=== PATIENT | female | born 1935 | race Caucasian/White ===

== ENCOUNTER 2019-07-20 15:59 | Emergency (ER) | payer MEDICARE ==
[2019-07-20 16:19] VITALS: BP 137/71; PULSE 78; RESP 18; TEMP 97.6
--- NOTE | 2019-07-20 18:06 | XR ---
EXAMINATION TYPE: XR Hip RT and AP Pelvis DATE OF EXAM: 07/20/2019 COMPARISON: Today HISTORY: Hip pain TECHNIQUE: A single AP view of the pelvis is obtained. Two views of the right hip are obtained. FINDINGS: The pelvic ring is intact. There is right hip prosthesis. Components are in reasonable pos ition. There is a mild protrusio the prosthetic acetabulum. There is a nondisplaced chip fracture of the greater trochanter unchanged compared to exam this morning. IMPRESSION: Greater trochanter chip fracture unchanged. Osteopenia. Mild protrusio of the acetabulum.
--- NOTE | 2019-07-20 19:12 | ED ---
Lower Extremity Injury HPI - General Chief Complaint: Extremity Injury, Lower Stated Complaint: Hip fracture Time Seen by Provider: 07/20/19 16:38 Source: patient Mode of arrival: wheelchair Limitations: no limitations - History of Present Illness Initial Comments: The patient is an 83-year-old female who presents emergency department with complaint of right knee pain. She originally had a right hip replacement by Dr. Wright at [facility] on May 07. She did go to rehab after that. States that she's been ambulating without difficulty with a walker. She did return home 3 weeks ago. States that over the past 3 weeks that she has had progressive pain in her right knee. She is still able to ambulate. Denies any trauma. She did follow up with the [facility] urgent care today and an x-ray of the patient's right hip and right knee were performed. UC was concerned for an acute right hip fracture and therefore she was transferred to our facility for further evaluation. She denies any worsening pain in her right hip. Denies any trauma. She continues to ambulate without difficulty. Denies any calf pain or swelling. No chest pain or shortness of breath. She denies any fevers or chills. No redness or swelling to the skin. She denies any alleviating, precipitating or modifying factors - Related Data Home Medications Medication Instructions Recorded Confirmed Pantoprazole Sodium [Protonix] 40 mg PO DAILY 07/20/19 07/20/19 Rosuvastatin Calcium [Crestor] 5 mg PO HS 07/20/19 07/20/19 amLODIPine [Norvasc] 5 mg PO DAILY 07/20/19 07/20/19 Allergies Allergy/AdvReac Type Severity Reaction Status Date / Time aspirin AdvReac Abdominal Verified 07/20/19 17:16 Pain Review of Systems ROS Statement: Those systems with pertinent positive or pertinent negative responses have been documented in the HPI. ROS Other: All systems not noted in ROS Statement are negative. 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 Absent: distended, tenderness Extremities exam: Present: normal inspection, tenderness, pedal edema, joint swelling, other (the patient has tenderness to palpation of the joint line of the right knee. No joint effusion. No warmth, redness, swelling. The patient has a well healed linear scar over the right hip. It is clean, dry, intact. No warmth or redness. No instability palpated. no tenderness. Patient has 5/5 muscle strength of the bilateral lower extremities to include hip flexors, knee extensors, ankle and great toe dorisflexors and foot plantar flexors. 2+ DP and PT pulses. Intact 2 point discrimination and soft touch ). Absent: calf tenderness Back exam: Present: normal inspection, full ROM. Absent: tenderness, vertebral tenderness Course Vital Signs 07/20/19 16:16 Temperature 97.6 F Pulse Rate 78 Respiratory 18 Rate Blood Pressure 137/71 O2 Sat by Pulse 98 Oximetry Medical Decision Making - Medical Decision Making Upon arrival the patient is placed in room 18. I did perform a thorough physical exam. I did review the patient's x-rays from the outside facility. I did recommend repeat x-rays the patient's right hip at our facility. They are performed and does demonstrate a greater trochanter chip fracture. Because of this I did call discuss case with Dr. Cardozo and he does review the films. As the patient is not reporting any difficulties with ambulation or pain she may be discharged home. He does recommend that she follow up with Dr. Terrell for reevaluation. The patient does not wish to pursue follow-up with Dr. wright. I did discuss this with the patient. She does agree to the treatment plan. She was then discharged home ambulatory in stable condition - Differential Diagnosis acute right knee pain, s/p right hip replacement Disposition Clinical Impression: Fracture of hip, S/P hip replacement, Right knee pain Disposition: HOME SELF-CARE Condition: Stable Instructions (If sedation given, give patient instructions): Precautions after Total Joint Replacement Surgery (ED), Knee Pain (ED) Additional Instructions: Please follow-up with Dr. Terrell within one week. Return to the emergency room for new or worsening symptoms Is patient prescribed a controlled substance at d/c from ED?: No Referrals: Antonio Liu DO [Primary Care Provider] - 1-2 days Pal Terrell DO [Doctor of Osteopathic Medicine] - 1-2 days Time of Disposition: 19:12
== END 2019-07-20 19:17 | disposition home or self-care (01) ==
LOC: EC 15:59
DX: S72.091A Other fracture of head and neck of right femur, initial encounter for closed fracture (principal); M25.561 Pain in right knee; K21.9 Gastro-esophageal reflux disease without esophagitis; E78.5 Hyperlipidemia, unspecified; I10 Essential (primary) hypertension; Z85.118 Personal history of other malignant neoplasm of bronchus and lung; Z96.641 Presence of right artificial hip joint; Z79.899 Other long term (current) drug therapy; Z88.6 Allergy status to analgesic agent
CPT/HCPCS: 73502; 99284

== ENCOUNTER 2020-01-05 11:20 | Emergency (ER) | payer MEDICARE, BC ==
[2020-01-05 11:24] VITALS: TEMP 97.6
[2020-01-05] MEDS ORDERED: SODIUM CHLORIDE 0.9% 500 ML 500 ML IV STA (11:41)
[2020-01-05] MEDS ORDERED: ONDANSETRON 4 MG/2 ML VIAL IVP STA (11:41)
--- NOTE | 2020-01-05 11:41 | ED ---
Nausea/Vomiting/Diarrhea HPI - General Chief complaint: Nausea/Vomiting/Diarrhea Stated complaint: vomiting Source: patient Mode of arrival: ambulatory Limitations: no limitations - History of Present Illness Initial comments: The patient is an 84-year-old female with past history of hypertension, hyperlipidemia 1 cancer presents to emergency room with reported nausea and vomiting. She states that her symptoms and presents for the past 6 months. She sees a GI doctor out of [facility]. States that she had surgery in August or September to correct a "pocket" in her stomach. They did think that this was the etiology of her intractable nausea and vomiting. She states that since surgery she has not had any improvement. She will have 2 days where she is able to hold down food and on the third day she begins vomiting. She reports that her symptoms are worse at night. Admits to significant weight loss. She saw her primary care doctor last month. She did have a CT of her chest performed to evaluate for recurrence of lung cancer. At that time he also p erformed with the patient describes to me as a possible CT with oral contrast. She states that she was told there is no issues with the study. She is unsure when her next follow up appointment is with her GI doctor. She denies hematemesis. Denies any abdominal or epigastric pain. No chest pain or shortness of breath. Denies diarrhea, constipation, melanotic stools or hematochezia. No recent medication changes. She does take the PPI daily which does not help her symptoms. Has no antiemetics. Denies fevers or chills. Was able to hold down food yesterday and currently denies nausea. There are no alleviating, precipitating or modifying nurse - Related Data Home Medications Medication Instructions Recorded Confirmed Pantoprazole Sodium [Protonix] 40 mg PO DAILY 07/20/19 07/20/19 Rosuvastatin Calcium [Crestor] 5 mg PO HS 07/20/19 07/20/19 amLODIPine [Norvasc] 5 mg PO DAILY 07/20/19 07/20/19 Previous Rx's Medication Instructions Recorded Ondansetron Odt [Zofran Odt] 4 mg PO Q8HR PRN #25 tab 01/05/20 Allergies Allergy/AdvReac Type Severity Reaction Status Date / Time aspirin AdvReac Abdominal Verified 01/05/20 11:24 Pain Review of Systems ROS Statement: Those systems with pertinent positive or pertinent negative responses have been documented in the HPI. ROS Other: All systems not noted in ROS Statement are negative. 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 A thorough history and physical exam was performed. We did obtain IV access. I provided the patient with 4 mg of Zofran and a 500 mL bolus of normal saline even though the patient states that she feels quite well at this time. I did recommend completing laboratory studies. CBC and CMP are unremarkable. Lipase is 44. I did request a urine sample however the patient refuses to give me 1. The patient recently had a computed tomography scan of her belly therefore I do hold off on any imaging. She is not having any abdominal pain. I discussed diagnosis, differential and treatment options. As the this is a chronic issue for the patient I do believe that she needs to follow up with GI in the outpatient setting for further workup. She is requesting a physician important that is closer to her house. I did provide her with information for Dr. Harkins. She is to call and make an appointment. I will give her a small prescription for Zofran to take at home for her nausea. If the patient has any new or worsening symptoms are absolutely cannot tolerate any by mouth intake she should return to the emergency department. At this time the patient states that she did eat a muffin and had coffee for breakfast. The patient understood this. She was then discharged home in stable condition - Lab Data Result diagrams: 01/05/20 12:00 01/05/20 12:00 Lab Results 01/05/20 01/05/2001/05/20 Range/Units 12:00 12:00 12:00 WBC 7.4 (3.8-10.6) k/uL RBC 4.57 (3.80-5.40) m/uL Hgb 12.7 (11.4-16.0) gm/dL Hct 39.6 (34.0-46.0) % MCV 86.6 (80.0-100.0) fL MCH 27.7 (25.0-35.0) pg MCHC 32.0 (31.0-37.0) g/dL RDW 15.0 (11.5-15.5) % Plt Count 287 (150-450) k/uL Neutrophils % 56 % Lymphocytes % 33 % Monocytes % 5 % Eosinophils % 3 % Basophils % 1 % Neutrophils # 4.1 (1.3-7.7) k/uL Lymphocytes # 2.5 (1.0-4.8) k/uL Monocytes # 0.4 (0-1.0) k/uL Eosinophils # 0.2 (0-0.7) k/uL Basophils # 0.1 (0-0.2) k/uL Sodium 136 L (137-145) mmol/L Potassium 4.0 (3.5-5.1) mmol/L Chloride 102 (98-107) mmol/L Carbon Dioxide 25 (22-30) mmol/L Anion Gap 9 mmol/L BUN 22 H (7-17) mg/dL Creatinine 0.88 (0.52-1.04) mg/dL Est GFR (CKD-EPI)AfAm 71 (>60 ml/min/1.73 sqM) Est GFR (CKD-EPI)NonAf 62 (>60 ml/min/1.73 sqM) Glucose 86 (74-99) mg/dL Plasma Lactic Acid Sajan 1.5 (0.7-2.0) mmol/L Calcium 9.7 (8.4-10.2) mg/dL Total Bilirubin 0.5 (0.2-1.3) mg/dL AST 21 (14-36) U/L ALT 11 (4-34) U/L Alkaline Phosphatase 92 (38-126) U/L Total Protein 7.3 (6.3-8.2) g/dL Albumin 4.1 (3.5-5.0) g/dL Lipase 44 (23-300) U/L - EKG Data EKG Comments: Demonstrates normal sinus rhythm with a ventricular rate of 60. WA interval 198. QRS 112. QTC of 459. There is an incomplete right bundle branch block present. No acute ST segment patients or depressions concerning for ischemic changes. No EKG to compare to Disposition Clinical Impression: Nausea and vomiting Disposition: HOME SELF-CARE Condition: Stable Instructions (If sedation given, give patient instructions): Acute Nausea and Vomiting (ED) Additional Instructions: Please follow-up with the GI doctor in regards to your chronic nausea and vomiting. Return to the emergency department for any new or worsening symptoms Prescriptions: Ondansetron Odt [Zofran Odt] 4 mg PO Q8HR PRN #25 tab PRN Reason: Nausea Is patient prescribed a controlled substance at d/c from ED?: No Referrals: Rober Brown DO [Primary Care Provider] - 1-2 days Wendy Concepcion MD [STAFF PHYSICIAN] - 1-2 days Time of Disposition: 14:14
[2020-01-05 12:13] LABS: Basophils # (A) 0.1 k/uL (0-0.2); Basophils % (A) 1 %; Eosinophils # (A) 0.2 k/uL (0-0.7); Eosinophils % (A) 3 %; HCT 39.6 % (34.0-46.0); HGB 12.7 gm/dL (11.4-16.0); Lymphocytes # (A) 2.5 k/uL (1.0-4.8); Lymphocytes % (A) 33 %; MCH 27.7 pg (25.0-35.0); MCV 86.6 fL (80.0-100.0); Mean Platelet Volume 7.8; Monocytes # (A) 0.4 k/uL (0-1.0); Monocytes % (A) 5 %; Neutrophils # (A) 4.1 k/uL (1.3-7.7); Neutrophils % (A) 56 %; Platelet Count 287 k/uL (150-450); RBC 4.57 m/uL (3.80-5.40); WBC 7.4 k/uL (3.8-10.6)
[2020-01-05 12:27] LABS: Albumin 4.1 g/dL (3.5-5.0); Calcium 9.7 mg/dL (8.4-10.2); Total Bilirubin 0.5 mg/dL (0.2-1.3); Total Protein 7.3 g/dL (6.3-8.2)
[2020-01-05 12:54] VITALS: RESP 18
[2020-01-05 14:48] VITALS: BP 145/70; PULSE 90
== END 2020-01-05 14:48 | disposition home or self-care (01) ==
LOC: EC 11:20
DX: R11.2 Nausea with vomiting, unspecified (principal); K21.9 Gastro-esophageal reflux disease without esophagitis; I10 Essential (primary) hypertension; E78.5 Hyperlipidemia, unspecified; Z79.899 Other long term (current) drug therapy; Z88.6 Allergy status to analgesic agent; Z90.49 Acquired absence of other specified parts of digestive tract; Z85.118 Personal history of other malignant neoplasm of bronchus and lung
CPT/HCPCS: 36415; 80053; 83605; 83690; 85025; 93005; 99284

== ENCOUNTER 2020-11-03 14:38 | Emergency (ER) | payer MEDICARE, BC ==
[2020-11-03 14:46] VITALS: PULSE 100
[2020-11-03] MEDS ORDERED: SODIUM CHLORIDE 0.9% 500 ML 500 ML IV ONE (15:17)
[2020-11-03 15:46] LABS: Appearance,Urine Clear (Clear); Bacteria,Urine Many /hpf; Bilirubin,Urine Negative (Negative); Blood,Urine Trace (Negative); Color,Urine Yellow; Glucose,Urine (UA) Negative (Negative); Hyaline Casts,Urine 14 /lpf (0-2); Ketones,Urine 2+ (Negative); Leukocyte Esterase,Urine Negative (Negative); Nitrite,Urine Positive (Negative); PH, Urine 5.5 (5.0-8.0); Protein,Urine 1+ (Negative); RBC,Urine 1 /hpf (0-5); Specific Gravity,Urine 1.029 (1.001-1.035); Squamous Epithelial Cell,Urine 3 /hpf (0-4); Urobilinogen,Urine <2.0 mg/dL (<2.0); WBC,Urine 9 /hpf (0-5)
[2020-11-03 15:59] LABS: Basophils # (A) 0.1 k/uL (0-0.2); Basophils % (A) 3 %; Eosinophils % (A) 1 %; HCT 42.3 % (34.0-46.0); HGB 13.9 gm/dL (11.4-16.0); Lymphocytes # (A) 0.9 k/uL (1.0-4.8); Lymphocytes % (A) 21 %; MCH 28.6 pg (25.0-35.0); MCHC 32.8 g/dL (31.0-37.0); MCV 87.1 fL (80.0-100.0); Monocytes # (A) 0.2 k/uL (0-1.0); Monocytes % (A) 5 %; Neutrophils # (A) 3.2 k/uL (1.3-7.7); Neutrophils % (A) 70 %; Platelet Count 131 k/uL (150-450); RBC 4.86 m/uL (3.80-5.40); RDW 13.8 % (11.5-15.5); WBC 4.5 k/uL (3.8-10.6)
[2020-11-03 16:15] LABS: Albumin 3.6 g/dL (3.5-5.0); Calcium 8.8 mg/dL (8.4-10.2); Potassium 4.7 mmol/L (3.5-5.1); Total Bilirubin 0.4 mg/dL (0.2-1.3); Total Protein 6.8 g/dL (6.3-8.2)
[2020-11-03] MEDS ORDERED: cefTRIAXone IN SWFI 1,000 MG/10 ML SYRINGE IVP STA (16:19)
--- NOTE | 2020-11-03 17:28 | CT ---
EXAMINATION TYPE: CT abdomen pelvis w con DATE OF EXAM: 11/03/2020 COMPARISON: None HISTORY: Urination changes and generalized pain. CT DLP: 697.1 mGycm Automated exposure control for dose reduction was used. CONTRAST: Performed with IV Contrast, patient injected with 80 mL of Isovue 300. Images were obtained from the diaphragm to the floor the pelvis with IV contrast. There is patchy infiltrate and atelectasis at the lung bases. There are clips from cholecystectomy. L iver shows no focal defect. Spleen is intact. There is no pancreatic mass. There is small hiatal ginny ia. There is no adrenal mass. Kidneys show satisfactory contrast opacification. There is no hydronephrosi s. Ureters are not dilated. There is normal excretion on the delayed images. Abdominal aorta is ather omatous. There is no retroperitoneal adenopathy. There is some mesh in the anterior abdomen from ginny ia surgery. There is 1.5 cm cortical cyst lateral right kidney. Bladder distends smoothly. There is metal artifact from right hip prosthesis. There are numerous sigm oid diverticula. There is no sign of diverticulitis. There is no mesenteric edema. There is no ascites or free air. There is no bowel obstruction. Appendi x is medial and appears normal. There is anterior subluxation of L5 in relation S1. There is no lumbar compression fracture. There is anterior spur formation and vacuum disc at multiple levels of the lower thoracic and upper lumbar sp ine. I see no bony destructive process. The bony pelvis is intact. There is mild lumbar dextroscoliosis. IMPRESSION: Interstitial infiltrates and scarring and atelectasis at the lung bases more on the right side. Small hiatal hernia. Colonic diverticulosis without diverticulitis. 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 No fr acture.
--- NOTE | 2020-11-03 17:54 | ED ---
Female Urogenital HPI - General Chief complaint: Urogenital Stated complaint: Poss Kidney Issue Time Seen by Provider: 11/03/20 14:45 Source: patient Mode of arrival: ambulatory Limitations: no limitations - History of Present Illness Initial comments: Patient is an 84-year-old female with past history of hypertension, hyperlipidemia, lung cancer presents emergency Department with reported left flank pain. Patient is concerned for urinary tract infection. Denies dysuria, hematuria or difficulty voiding. She went to an urgent care however couldn't provide a urine sample therefore they recommended she come in to the emergency room for evaluation. Denies history of nephrolithiasis. No fevers or chills. Denies any nausea or vomiting. No diarrhea, constipation, melenic stools or hematochezia. Denies any abnormal vaginal bleeding or discharge. No anterior abdominal pain. No other alleviating, precipitating or modifying factors - Related Data Home Medications Medication Instructions Recorded Confirmed amLODIPine [Norvasc] 5 mg PO DAILY 07/20/19 11/03/20 Acetaminophen [Tylenol] 325 mg PO Q4H PRN 11/03/20 11/03/20 Omeprazole Magnesium 20 mg PO DAILY 11/03/20 11/03/20 Simvastatin [Zocor] 20 mg PO HS 11/03/20 11/03/20 Previous Rx's Medication Instructions Recorded Cephalexin [Keflex] 500 mg PO Q6HR #40 cap 11/03/20 Allergies Allergy/AdvReac Type Severity Reaction Status Date / Time aspirin AdvReac Abdominal Verified 11/03/20 17:30 Pain Review of Systems ROS Statement: Those systems with pertinent positive or pertinent negative responses have been documented in the HPI. ROS Other: All systems not noted in ROS Statement are negative. 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 A thorough history and physical exam was performed. Peripheral IV is established. Laboratory studies were conducted and the patient went for CT for abdomen and pelvis. She is able to provide a urine sample which demonstrates positive nitrites and many bacteria. CT is performed which does not demonstrate any signs of pyelonephritis, renal abscess or renal stone. Colonic diverticulosis without diverticulitis. Patient was given a dose of Rocephin in the emergency department. We will treat the patient has a clinical pyelonephritis. Patient will be placed on Keflex which she is instructed to start tomorrow. She is to follow-up with her primary care doctor in 2-4 days. Return to the emergency room for any new or worsening symptoms. Patient was discharged home in stable condition after she agreed to the treatment plan - Lab Data Result diagrams: 11/03/20 15:50 11/03/20 15:52 Lab Results 11/03/20 11/03/20 11/03/20 Range/Units 15:32 15:50 15:52 WBC 4.5 (3.8-10.6) k/uL RBC 4.86 (3.80-5.40) m/uL Hgb 13.9 (11.4-16.0) gm/dL Hct 42.3 (34.0-46.0) % MCV 87.1 (80.0-100.0) fL MCH 28.6 (25.0-35.0) pg MCHC 32.8 (31.0-37.0) g/dL RDW 13.8 (11.5-15.5) % Plt Count 131 L (150-450) k/uL MPV 8.0 Neutrophils % 70 % Lymphocytes % 21 % Monocytes % 5 % Eosinophils % 1 % Basophils % 3 % Neutrophils # 3.2 (1.3-7.7) k/uL Lymphocytes # 0.9 L (1.0-4.8) k/uL Monocytes # 0.2 (0-1.0) k/uL Eosinophils # 0.0 (0-0.7) k/uL Basophils # 0.1 (0-0.2) k/uL Sodium 136 L (137-145) mmol/L Potassium 4.7 (3.5-5.1) mmol/L Chloride 105 (98-107) mmol/L Carbon Dioxide 19 L (22-30) mmol/L Anion Gap 12 mmol/L BUN 24 H (7-17) mg/dL Creatinine 0.84 (0.52-1.04) mg/dL Est GFR (CKD-EPI)AfAm 75 (>60 ml/min/1.73 sqM) Est GFR (CKD-EPI)NonAf 65 (>60 ml/min/1.73 sqM) Glucose 82 (74-99) mg/dL Calcium 8.8 (8.4-10.2) mg/dL Total Bilirubin 0.4 (0.2-1.3) mg/dL AST 39 H (14-36) U/L ALT 20 (4-34) U/L Alkaline Phosphatase 69 (38-126) U/L Total Protein 6.8 (6.3-8.2) g/dL Albumin 3.6 (3.5-5.0) g/dL Urine Color Yellow Urine Appearance Clear (Clear) Urine pH 5.5 (5.0-8.0) Ur Specific [place] 1.029 (1.001-1.035) Urine Protein 1+ H (Negative) Urine Glucose (UA) Negative (Negative) Urine Ketones 2+ H (Negative) Urine Blood Trace H (Negative) Urine Nitrite Positive H (Negative) Urine Bilirubin Negative (Negative) Urine Urobilinogen <2.0 (<2.0) mg/dL Ur Leukocyte Esterase Negative (Negative) Urine RBC 1 (0-5) /hpf Urine WBC 9 H (0-5) /hpf Ur Squamous Epith Cells 3 (0-4) /hpf Urine Bacteria Many H (None) /hpf Hyaline Casts 14 H (0-2) /lpf Disposition Clinical Impression: Pyelonephritis, Flank pain Disposition: HOME SELF-CARE Condition: Stable Instructions (If sedation given, give patient instructions): Kidney Infection (ED) Additional Instructions: Please follow up with your primary care doctor. Return to the emergency room for any new or worsening symptoms. Start your antibiotics tomorrow Prescriptions: Cephalexin [Keflex] 500 mg PO Q6HR #40 cap Is patient prescribed a controlled substance at d/c from ED?: No Referrals: Rober Brown DO [Primary Care Provider] - 1-2 days Time of Disposition: 17:54
[2020-11-03 18:17] VITALS: BP 149/68; RESP 19; TEMP 98
== END 2020-11-03 18:17 | disposition home or self-care (01) ==
LOC: EC 14:38
DX: N12 Tubulo-interstitial nephritis, not specified as acute or chronic (principal); K57.30 Diverticulosis of large intestine without perforation or abscess without bleeding; I10 Essential (primary) hypertension; E78.5 Hyperlipidemia, unspecified; K21.9 Gastro-esophageal reflux disease without esophagitis; Z79.899 Other long term (current) drug therapy; Z88.6 Allergy status to analgesic agent; Z87.891 Personal history of nicotine dependence; Z90.49 Acquired absence of other specified parts of digestive tract; Z85.118 Personal history of other malignant neoplasm of bronchus and lung
CPT/HCPCS: 36415; 80053; 85025; 81001; 87086; 74177; 99284; 96374; 96361 ×2; J0696; Q9967

== ENCOUNTER 2020-11-05 16:33 | Emergency (ER) | payer MEDICARE, BC ==
[2020-11-05 16:44] VITALS: RESP 18
[2020-11-05] MEDS ORDERED: ACETAMINOPHEN TAB 500 MG TAB PO STA (16:54)
[2020-11-05] MEDS: SODIUM CHLORIDE 0.9% 500 ML 500 ML IV SCH ×2 (17:01→18:50)
--- NOTE | 2020-11-05 17:07 | ED ---
General Adult HPI - General Chief complaint: Urogenital Stated complaint: Revisit UTI Time Seen by Provider: 11/05/20 16:54 Source: patient, EMS Mode of arrival: EMS Limitations: no limitations - History of Present Illness Initial comments: Dictation was produced using spotdock dictation software. please excuse any grammatical, word or spelling errors. This patient was cared for during a federal and state declared state of emergency secondary to Covid 19 Chief Complaint: 84-year-old female presents today with fever, left flank pain. History of Present Illness: 20-year-old female she was recently diagnosed with urinary tract infection. She is brought in by EMS for persistent UTI symptoms Of fever. Patient is a poor historian. Report was received by nursing staff were received from EMS. Patient was seen here in emergency department 2 days ago where she was diagnosed with urinary tract infection. Patient is given a dose of Rocephin and discharge. She was treated for pyelonephritis with antibiotics prescription for Keflex. Patient states she just filled her prescription a day ago however feels that her symptoms aren't improving. Patient denies any nausea vomiting. She does have some mild shortness of breath. No cough. States she does have some left flank pain. No diarrhea. No urinary symptoms. The ROS documented in this emergency department record has been reviewed and confirmed by me. Those systems with pertinent positive or negative responses have been documented in the HPI. All other systems are other negative and/or noncontributory. PHYSICAL EXAM: General Impression: Alert and oriented x3, not in acute distress HEENT: Normocephalic atraumatic, extra-ocular movements intact, pupils equal and reactive to light bilaterally, mucous membranes moist. Cardiovascular: Heart regular rate and rhythm Chest: Able to complete full sentences, no retractions, no tachypnea Abdomen: abdomen soft, non-tender, non-distended, no organomegaly Musculoskeletal: Pulses present and equal in all extremities, no peripheral edema Motor: no focal deficits noted Neurological: CN II-XII grossly intact, no focal motor or sensory deficits noted Skin: Intact with no visualized rashes Psych: Normal affect and mood ED course: 84-year-old female presents with fever and UTI. vital signs upon arrival shows temperature 102.1, pulse vital signs within acceptable limits. Laboratory evaluation obtained. CBC unremarkable. Coag panel is negative. Metabolic panel is negative. Urinalysis is negative. Coronavirus test is positive. Chest x-ray shows bilateral upper lobe pneumonia and mild right lower lobe pneumonia. Clinical presentation is likely secondary to cold in 19 however there is perhaps superimposed community acquired pneumonia. Patient given dose of Zithromax. Patient clinically stable at this time. Patient will be discharged with prescription for antibiotics. Return parameters is discussed. EKG interpretation: Ventricular rate 76, sinus rhythm, MS interval 92, QRS 112, QTC 452. No MS prolongation, no QTC prolongation, no ST or T-wave changes noted. EKG compared to 01/05/2020 showing no changes. Overall, this EKG is unremarkable - Related Data Home Medications Medication Instructions Recorded Confirmed amLODIPine [Norvasc] 5 mg PO DAILY 07/20/19 11/03/20 Acetaminophen [Tylenol] 325 mg PO Q4H PRN 11/03/20 11/03/20 Omeprazole Magnesium 20 mg PO DAILY 11/03/20 11/03/20 Simvastatin [Zocor] 20 mg PO HS 11/03/20 11/03/20 Previous Rx's Medication Instructions Recorded Cephalexin [Keflex] 500 mg PO Q6HR #40 cap 11/03/20 Azithromycin [Zithromax Z-pack] 0 mg PO DIRECTED #6 tab 11/05/20 Allergies Allergy/AdvReac Type Severity Reaction Status Date / Time aspirin AdvReac Abdominal Verified 11/03/20 17:30 Pain Review of Systems ROS Statement: Those systems with pertinent positive or pertinent negative responses have been documented in the HPI. ROS Other: All systems not noted in ROS Statement are negative. 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40) m/uL Hgb 13.5 (11.4-16.0) gm/dL Hct 41.9 (34.0-46.0) % MCV 86.1 (80.0-100.0) fL MCH 27.8 (25.0-35.0) pg MCHC 32.3 (31.0-37.0) g/dL RDW 14.2 (11.5-15.5) % Plt Count 200 D (150-450) k/uL MPV 9.0 Neutrophils % 77 % Lymphocytes % 17 % Monocytes % 4 % Eosinophils % 0 % Basophils % 1 % Neutrophils # 4.3 (1.3-7.7) k/uL Lymphocytes # 0.9 L (1.0-4.8) k/uL Monocytes # 0.2 (0-1.0) k/uL Eosinophils # 0.0 (0-0.7) k/uL Basophils # 0.0 (0-0.2) k/uL PT 9.7 (9.0-12.0) sec INR 0.9 (<1.2) APTT 26.6 (22.0-30.0) sec Sodium 137 (137-145) mmol/L Potassium 3.7 (3.5-5.1) mmol/L Chloride 106 (98-107) mmol/L Carbon Dioxide 23 (22-30) mmol/L Anion Gap 8 mmol/L BUN 13 (7-17) mg/dL Creatinine 0.71 (0.52-1.04) mg/dL Est GFR (CKD-EPI)AfAm >90 (>60 ml/min/1.73 sqM) Est GFR (CKD-EPI)NonAf 80 (>60 ml/min/1.73 sqM) Glucose 92 (74-99) mg/dL Plasma Lactic Acid Sajan (0.7-2.0) mmol/L Calcium 8.4 (8.4-10.2) mg/dL Total Bilirubin 0.3 (0.2-1.3) mg/dL AST 27 (14-36) U/L ALT 14 (4-34) U/L Alkaline Phosphatase 67 (38-126) U/L Total Protein 6.2 L (6.3-8.2) g/dL Albumin 3.2 L (3.5-5.0) g/dL Urine Color Urine Appearance (Clear) Urine pH (5.0-8.0) Ur Specific Portal (1.001-1.035) Urine Protein (Negative) Urine Glucose (UA) (Negative) Urine Ketones (Negative) Urine Blood (Negative) Urine Nitrite (Negative) Urine Bilirubin (Negative) Urine Urobilinogen (<2.0) mg/dL Ur Leukocyte Esterase (Negative) Urine RBC (0-5) /hpf Urine WBC (0-5) /hpf Ur Squamous Epith Cells (0-4) /hpf Urine Mucus (None) /hpf Coronavirus (PCR) (Not Detectd) 11/05/20 11/05/20 11/05/20 Range/Units 17:31 17:40 19:00 WBC (3.8-10.6) k/uL RBC (3.80-5.40) m/uL Hgb (11.4-16.0) gm/dL Hct (34.0-46.0) % MCV (80.0-100.0) fL MCH (25.0-35.0) pg MCHC (31.0-37.0) g/dL RDW (11.5-15.5) % Plt Count (150-450) k/uL MPV Neutrophils % % Lymphocytes % % Monocytes % % Eosinophils % % Basophils % % Neutrophils # (1.3-7.7) k/uL Lymphocytes # (1.0-4.8) k/uL Monocytes # (0-1.0) k/uL Eosinophils # (0-0.7) k/uL Basophils # (0-0.2) k/uL PT (9.0-12.0) sec INR (<1.2) APTT (22.0-30.0) sec Sodium (137-145) mmol/L Potassium (3.5-5.1) mmol/L Chloride (98-107) mmol/L Carbon Dioxide (22-30) mmol/L Anion Gap mmol/L BUN (7-17) mg/dL Creatinine (0.52-1.04) mg/dL Est GFR (CKD-EPI)AfAm (>60 ml/min/1.73 sqM) Est GFR (CKD-EPI)NonAf (>60 ml/min/1.73 sqM) Glucose (74-99) mg/dL Plasma Lactic Acid Sajan 1.8 (0.7-2.0) mmol/L Calcium (8.4-10.2) mg/dL Total Bilirubin (0.2-1.3) mg/dL AST (14-36) U/L ALT (4-34) U/L Alkaline Phosphatase (38-126) U/L Total Protein (6.3-8.2) g/dL Albumin (3.5-5.0) g/dL Urine Color Yellow Urine Appearance Clear (Clear) Urine pH 5.5 (5.0-8.0) Ur Specific Portal 1.025 (1.001-1.035) Urine Protein 1+ H (Negative) Urine Glucose (UA) Negative (Negative) Urine Ketones 1+ H (Negative) Urine Blood Negative (Negative) Urine Nitrite Negative (Negative) Urine Bilirubin Negative (Negative) Urine Urobilinogen 2.0 (<2.0) mg/dL Ur Leukocyte Esterase Negative (Negative) Urine RBC 1 (0-5) /hpf Urine WBC 1 (0-5) /hpf Ur Squamous Epith Cells 1 (0-4) /hpf Urine Mucus Rare H (None) /hpf Coronavirus (PCR) Detected A (Not Detectd) Disposition Clinical Impression: COVID-19 Disposition: HOME SELF-CARE Condition: Good Instructions (If sedation given, give patient instructions): Viral Pneumonia (ED) Additional Instructions: Today you were evaluated for symptoms consistent with upper respiratory infection. There is concern that perhaps your symptomatology may represent Covid 19. Your are stable for discharge, however it is instructed to to seek immediate medical attention especially if you develop worsening symptoms especially respiratory distress. In the meantime please remain in quarantine for 14 days. For any other questions please contact Rylee for here in emergency department or [facility] at [phone] Prescriptions: Azithromycin [Zithromax Z-pack] 0 mg PO DIRECTED #6 tab Is patient prescribed a controlled substance at d/c from ED?: No Referrals: Rober Brown DO [Primary Care Provider] - 1-2 days Time of Disposition: 20:28
[2020-11-05 17:46] LABS: Basophils % (A) 1 %; Eosinophils % (A) 0 %; HCT 41.9 % (34.0-46.0); HGB 13.5 gm/dL (11.4-16.0); Lymphocytes # (A) 0.9 k/uL (1.0-4.8); Lymphocytes % (A) 17 %; MCH 27.8 pg (25.0-35.0); MCHC 32.3 g/dL (31.0-37.0); MCV 86.1 fL (80.0-100.0); Monocytes # (A) 0.2 k/uL (0-1.0); Monocytes % (A) 4 %; Neutrophils # (A) 4.3 k/uL (1.3-7.7); Neutrophils % (A) 77 %; RBC 4.86 m/uL (3.80-5.40); RDW 14.2 % (11.5-15.5); WBC 5.6 k/uL (3.8-10.6)
[2020-11-05 17:53] LABS: Platelet Count 200 k/uL (150-450)
[2020-11-05 17:56] LABS: INR 0.9 (<1.2); Partial Thromboplastin Time 26.6 sec (22.0-30.0); Prothrombin Time 9.7 sec (9.0-12.0)
--- NOTE | 2020-11-05 18:11 | XR ---
EXAMINATION TYPE: XR chest 1V portable DATE OF EXAM: 11/05/2020 COMPARISON: NONE HISTORY: Fever TECHNIQUE: Single view FINDINGS: Heart size is normal. There is some airspace consolidation medial left upper lobe. There is also mild infiltrate medial right upper lobe. There is blunting of the costophrenic angles. There is no gross heart failure. There is coarsening of interstitial markings. There is mild infiltrate right lung base. IMPRESSION: Bilateral upper lobe pneumonia. Pulmonary interstitial fibrosis. Mild right lower lobe pn eumonia. No definite heart failure.
[2020-11-05 18:29] LABS: ALT 14 U/L (4-34); AST 27 U/L (14-36); African American GFR (CKD) >90 (>60 ml/min/1.73 sqM); Albumin 3.2 g/dL (3.5-5.0); Alkaline Phosphatase 67 U/L (38-126); Anion Gap 8 mmol/L; Blood Urea Nitrogen 13 mg/dL (7-17); Calcium 8.4 mg/dL (8.4-10.2); Carbon Dioxide 23 mmol/L (22-30); Chloride 106 mmol/L (98-107); Glucose 92 mg/dL (74-99); Non-African American GFR(CKD) 80 (>60 ml/min/1.73 sqM); Potassium 3.7 mmol/L (3.5-5.1); Sodium 137 mmol/L (137-145); Total Bilirubin 0.3 mg/dL (0.2-1.3); Total Protein 6.2 g/dL (6.3-8.2)
[2020-11-05 18:44] VITALS: PULSE 78
[2020-11-05] MEDS ORDERED: DEXAMETHASONE SOD PHOSPHATE 10 MG/ML 1 ML VIAL IV STA (19:39)
[2020-11-05 19:49] LABS: Appearance,Urine Clear (Clear); Bilirubin,Urine Negative (Negative); Blood,Urine Negative (Negative); Color,Urine Yellow; Glucose,Urine (UA) Negative (Negative); Ketones,Urine 1+ (Negative); Leukocyte Esterase,Urine Negative (Negative); Mucus,Urine Rare /hpf; Nitrite,Urine Negative (Negative); PH, Urine 5.5 (5.0-8.0); Protein,Urine 1+ (Negative); RBC,Urine 1 /hpf (0-5); Specific Gravity,Urine 1.025 (1.001-1.035); Squamous Epithelial Cell,Urine 1 /hpf (0-4); WBC,Urine 1 /hpf (0-5)
[2020-11-05] MEDS ORDERED: AZITHROMYCIN 500 MG TAB PO STA (20:12)
[2020-11-05 20:32] VITALS: BP 154/69; TEMP 98.8
== END 2020-11-05 21:24 | disposition home or self-care (01) ==
LOC: EC 16:33
DX: U07.1 COVID-19 (principal); J18.9 Pneumonia, unspecified organism; I10 Essential (primary) hypertension; E78.5 Hyperlipidemia, unspecified; K21.9 Gastro-esophageal reflux disease without esophagitis; Z79.899 Other long term (current) drug therapy; Z88.6 Allergy status to analgesic agent; Z87.891 Personal history of nicotine dependence; Z85.118 Personal history of other malignant neoplasm of bronchus and lung
CPT/HCPCS: 36415; 93005; 80053; 83605; 85025; 85610; 85730; 81001; 87040; 87635; 71045; 99285; 96374; 96361 ×3; J1100

== ENCOUNTER → 2021-08-10 | Outpatient (CLI) | payer MEDICARE, BC ==
--- NOTE | 2021-08-10 12:53 | CT ---
EXAMINATION TYPE: CT abdomen pelvis wo con DATE OF EXAM: 08/10/2021 COMPARISON: 11/03/2020 HISTORY: Left sided flank pain. CT DLP: 808 mGycm Examination of the solid and hollow viscera is limited given the lack of contrast. FINDINGS: LUNG BASES: No evidence for nodule. No evidence for infiltrate. Fixed hiatal hernia. LIVER/GB: The gallbladder is unremarkable. No space-occupying hepatic lesion. PANCREAS: No pancreatic mass identified. No inflammatory process seen. SPLEEN: No evidence for splenomegaly. No intrasplenic lesions seen. ADRENALS: No adrenal nodules identified. No evidence for thickening. KIDNEYS: No evidence for renal mass. No nephrolithiasis. No hydronephrosis. BOWEL: Appendix has a normal appearance. No evidence of bowel obstruction. No inflammatory process. S igmoid diverticulosis without diverticulitis. Lymph nodes: No evidence for adenopathy greater than 1 cm. Abdominal aorta: Atheromatous changes seen. No evidence for aneurysm. Genital organs: No significant abnormality. Other: No significant abnormality. IMPRESSION: 1. No obstructing calculus seen.
== END | disposition home or self-care (01) ==
LOC: RADCTMAIN 12:22
PROVIDERS: ATTEND Nurse Practitioner
DX: R10.9 Unspecified abdominal pain (principal)
CPT/HCPCS: 74176

== ENCOUNTER 2021-11-18 09:46 | Emergency (ER) | payer MEDICARE, BC ==
[2021-11-18] MEDS ORDERED: ONDANSETRON 4 MG/2 ML VIAL IVP STA (10:12)
[2021-11-18] MEDS ORDERED: IBUPROFEN 600 MG TAB PO STA (10:12)
[2021-11-18] MEDS ORDERED: SODIUM CHLORIDE 0.9% 1,000 ML IV STA (10:12)
[2021-11-18 10:45] LABS: Basophils % (A) 0 %; Eosinophils # (A) 0.1 k/uL (0-0.7); Eosinophils % (A) 1 %; HCT 38.8 % (34.0-46.0); HGB 12.7 gm/dL (11.4-16.0); Lymphocytes % (A) 11 %; MCH 28.8 pg (25.0-35.0); MCHC 32.8 g/dL (31.0-37.0); Mean Platelet Volume 8.2; Monocytes # (A) 0.5 k/uL (0-1.0); Monocytes % (A) 6 %; Neutrophils # (A) 7.4 k/uL (1.3-7.7); Neutrophils % (A) 81 %; Platelet Count 246 k/uL (150-450); RBC 4.41 m/uL (3.80-5.40); RDW 13.2 % (11.5-15.5); WBC 9.1 k/uL (3.8-10.6)
[2021-11-18 10:59] LABS: Albumin 3.8 g/dL (3.5-5.0); Calcium 9.3 mg/dL (8.4-10.2); Potassium 4.4 mmol/L (3.5-5.1); Total Bilirubin 0.5 mg/dL (0.2-1.3); Total Protein 6.8 g/dL (6.3-8.2)
--- NOTE | 2021-11-18 11:31 | XR ---
EXAMINATION TYPE: XR chest 2V DATE OF EXAM: 11/18/2021 COMPARISON: 11/05/2020 HISTORY: 85-year-old female with pain and fever TECHNIQUE: AP and lateral views FINDINGS: Heart normal size. Hyperinflation. Redemonstrated left suprahilar opacity. Increasing patchy intersti tial changes in the upper and midlungs. 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 Also, increased patchy intersti tial densities upper and mid lungs. Correlate for pneumonia. Follow-up after treatment to ensure arley massiel. If the left suprahilar opacity persists, contrast-enhanced CT can be performed.
--- NOTE | 2021-11-18 12:58 | ED ---
General Adult HPI - General Chief complaint: Nausea/Vomiting/Diarrhea Stated complaint: Vomiting Time Seen by Provider: 11/18/21 09:53 Source: patient, EMS, RN notes reviewed, old records reviewed Mode of arrival: EMS Limitations: no limitations - History of Present Illness Initial comments: Patient is an 85-year-old female with past most medical history remarkable for hypertension, GERD who presents emergency Department following a one-day history of substernal chest pain, as well as nausea and multiple episodes of nonbilious no bloody emesis. States most of this is from coughing, and emesis is posttussive. Describes it as small amounts of clear fluid following coughing episodes. Denies any diarrhea. Denies any history of COPD or asthma. Patient was not vaccinated for COVID-19. No known sick contacts. She denies any fevers, chills, shortness of breath. Currently denies any chest pain. He has no other acute complaints at this time. - Related Data Home Medications Medication Instructions Recorded Confirmed amLODIPine [Norvasc] 5 mg PO HS 07/20/19 11/18/21 Omeprazole Magnesium [PriLOSEC] 20 mg PO DAILY 11/03/20 11/18/21 Simvastatin [Zocor] 20 mg PO HS 11/03/20 11/18/21 Previous Rx's Medication Instructions Recorded Acetaminophen [Tylenol] 325 mg PO Q6HR PRN 7 Days #28 11/18/21 capsule Albuterol Inhaler [Ventolin Hfa 1 puff INHALATION RT-QID #8 gm 11/18/21 Inhaler] Allergies Allergy/AdvReac Type Severity Reaction Status Date / Time aspirin AdvReac Nausea & Verified 11/18/21 11:31 Vomiting Review of Systems ROS Statement: Those systems with pertinent positive or pertinent negative responses have been documented in the HPI. Review of Systems: CONST: Denies fever EYES: Denies blurry vision ENT: Denies nasal congestion C/V: Endorses chest pain RESP: Endorses cough GI: Denies abdominal pain : Denies dysuria SKIN: Denies rash. MSK: Denies joint pain. NEURO: Denies headache ROS Other: All systems not noted in ROS Statement are negative. 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 HEAD: Normal with no signs of head trauma. EYES: PERRLA, EOMI, conjunctiva normal, no discharge. ENT: Hearing grossly intact, normal oropharynx. Nasal congestion present. Moist mucous members. RESPIRATORY: Clear breath sounds bilaterally. No wheezes, rales, or rhonchi. minimal hypoxia. No increased work of breathing. C/V: Regular rate and rhythm. S1 and S2 auscultated, no edema, peripheral pulses 2+ and intact throughout ABD: Abd is soft, nontender, nondistended EXT: Normal range of motion, no obvious deformity SKIN: No rashes or lesions observed on exposed skin. NEURO: Alert and oriented x 4. Cranial nerves II-XII intact. No focal sensory or strength deficits. Limitations: no limitations Course Vital Signs 11/18/21 09:49 Temperature 100 F H Pulse Rate 97 Respiratory 22 Rate Blood Pressure 112/47 O2 Sat by Pulse 93 L Oximetry Medical Decision Making - Medical Decision Making Patient is an 85-year-old female presenting with acute onset of chest pain over the last day with nausea and vomiting which appears to be posttussive emesis mild upper esterase symptoms. She is unvaccinated. I'm concerned for COVID-19 versus cardiac etiology as well as dehydration. Patient denies any chest pain currently. She is ALLERGIC to aspirin. She'll be administered Motrin for her low-grade fever as well as a 1 L fluid bolus and IV Zofran. She was in agreement this plan. We'll obtain a cardiac workup including chest x-ray, EKG, troponin, sick labs. Covid swab will be obtained. She was in agreement this plan. EKG shows no signs of ischemia and chronic changes. Chest x-ray reveals patchy interstitial densities likely secondary to COVID-19 infection. Laboratory studies are remarkable for a normal troponin of 0.02. Urinalysis shows no signs of acute infection. Patient is COVID-19 positive. At this time, patient is not hypoxic, tolerating by mouth intake. I discussed with her that she has a COVID-19 infection, and she does qualify for monoclonal antibody therapy. Believe that she could discharged home afterwards. She was in agreement this plan. Patient consented to therapy. She received monoclonal antibody therapy. She is stable for discharge home at this time. I discussed quarantine with her and recommended other individuals in the household obtain testing. I will provide the patient with a prescription for albuterol, tylenol. I instructed the patient to follow up with their PCP in the next 3 days. I explained that the patient should return to the emergency department if they experience any worsening symptoms. Strict return precautions were discussed with the patient. The patient expressed understanding of these instructions. I answered all questions that the patient had. The patient was discharged home in fair condition with their prescriptions and follow up information. - Lab Data Result diagrams: 11/18/21 10:27 11/18/21 10:27 Lab Results 11/18/21 11/18/21 11/18/21 Range/Units 10:27 10:27 10:27 WBC 9.1 (3.8-10.6) k/uL RBC 4.41 (3.80-5.40) m/uL Hgb 12.7 (11.4-16.0) gm/dL Hct 38.8 (34.0-46.0) % MCV 88.0 (80.0-100.0) fL MCH 28.8 (25.0-35.0) pg MCHC 32.8 (31.0-37.0) g/dL RDW 13.2 (11.5-15.5) % Plt Count 246 (150-450) k/uL MPV 8.2 Neutrophils % 81 % Lymphocytes % 11 % Monocytes % 6 % Eosinophils % 1 % Basophils % 0 % Neutrophils # 7.4 (1.3-7.7) k/uL Lymphocytes # 1.0 (1.0-4.8) k/uL Monocytes # 0.5 (0-1.0) k/uL Eosinophils # 0.1 (0-0.7) k/uL Basophils # 0.0 (0-0.2) k/uL Sodium 135 L (137-145) mmol/L Potassium 4.4 (3.5-5.1) mmol/L Chloride 101 (98-107) mmol/L Carbon Dioxide 27 (22-30) mmol/L Anion Gap 7 mmol/L BUN 21 H (7-17) mg/dL Creatinine 1.07 H (0.52-1.04) mg/dL Est GFR (CKD-EPI)AfAm 56 (>60 ml/min/1.73 sqM) Est GFR (CKD-EPI)NonAf 48 (>60 ml/min/1.73 sqM) Glucose 105 H (74-99) mg/dL Calcium 9.3 (8.4-10.2) mg/dL Total Bilirubin 0.5 (0.2-1.3) mg/dL AST 22 (14-36) U/L ALT 11 (4-34) U/L Alkaline Phosphatase 75 (38-126) U/L Troponin I 0.020 (0.000-0.034) ng/mL Total Protein 6.8 (6.3-8.2) g/dL Albumin 3.8 (3.5-5.0) g/dL Amylase 33 (30-110) U/L Lipase 38 (23-300) U/L Coronavirus (PCR) (Not Detectd) 11/18/21 Range/Units 10:27 WBC (3.8-10.6) k/uL RBC (3.80-5.40) m/uL Hgb (11.4-16.0) gm/dL Hct (34.0-46.0) % MCV (80.0-100.0) fL MCH (25.0-35.0) pg MCHC (31.0-37.0) g/dL RDW (11.5-15.5) % Plt Count (150-450) k/uL MPV Neutrophils % % Lymphocytes % % Monocytes % % Eosinophils % % Basophils % % Neutrophils # (1.3-7.7) k/uL Lymphocytes # (1.0-4.8) k/uL Monocytes # (0-1.0) k/uL Eosinophils # (0-0.7) k/uL Basophils # (0-0.2) k/uL Sodium (137-145) mmol/L Potassium (3.5-5.1) mmol/L Chloride (98-107) mmol/L Carbon Dioxide (22-30) mmol/L Anion Gap mmol/L BUN (7-17) mg/dL Creatinine (0.52-1.04) mg/dL Est GFR (CKD-EPI)AfAm (>60 ml/min/1.73 sqM) Est GFR (CKD-EPI)NonAf (>60 ml/min/1.73 sqM) Glucose (74-99) mg/dL Calcium (8.4-10.2) mg/dL Total Bilirubin (0.2-1.3) mg/dL AST (14-36) U/L ALT (4-34) U/L Alkaline Phosphatase (38-126) U/L Troponin I (0.000-0.034) ng/mL Total Protein (6.3-8.2) g/dL Albumin (3.5-5.0) g/dL Amylase (30-110) U/L Lipase (23-300) U/L Coronavirus (PCR) Detected A (Not Detectd) - EKG Data -: EKG Interpreted by Me EKG Comments: 12-lead Electrocardiogram Interpretation Note EKG was reviewed and interpreted by myself. 12-lead ECG performed at 1023 is interpreted by me as revealing 1023 at a rate of the 96 beats per minute. [place] is leftward deviated, [place] interval is 182 ms, QRS durations 104 ms, QTc is [address] . [address] acute [address] segment or T-wave changes to suggest acute ischemia.. R wave progression across the precordium was satisfactory. By my interpretation this EKG is non-diagnostic for acute ischemia. The does appear to be an incomplete right bundle-branch block present, which is seen on prior EKG's. Disposition Clinical Impression: COVID-19 virus infection, Cough, Nausea and vomiting Disposition: HOME SELF-CARE Condition: Fair Instructions (If sedation given, give patient instructions): Acute Nausea and Vomiting (ED), Coronavirus Disease 2019 (COVID-19) Prescriptions: Acetaminophen [Tylenol] 325 mg PO Q6HR PRN 7 Days #28 capsule PRN Reason: Fever Albuterol Inhaler [Ventolin Hfa Inhaler] 1 puff INHALATION RT-QID #8 gm Is patient prescribed a controlled substance at d/c from ED?: No Referrals: Dali Aikns DO [Primary Care Provider] - 1-2 days
[2021-11-18 13:00] LABS: Amorphous Sediment,Urine Occasional /hpf; Appearance,Urine Cloudy (Clear); Bilirubin,Urine Negative (Negative); Blood,Urine Negative (Negative); Color,Urine Light Yellow; Glucose,Urine (UA) Negative (Negative); Ketones,Urine Negative (Negative); Leukocyte Esterase,Urine Negative (Negative); Mucus,Urine Rare /hpf; Nitrite,Urine Negative (Negative); PH, Urine 7.5 (5.0-8.0); Protein,Urine Negative (Negative); RBC,Urine 3 /hpf (0-5); Specific Gravity,Urine 1.016 (1.001-1.035); Squamous Epithelial Cell,Urine <1 /hpf (0-4); Urobilinogen,Urine <2.0 mg/dL (<2.0); WBC,Urine 1 /hpf (0-5)
[2021-11-18] MEDS ORDERED: SODIUM CHLORIDE 0.9% 50 ML IVPB ONE (13:00)
[2021-11-18] MEDS ORDERED: CASIRIVIMAB (REGN10933) (EUA) 600 MG, IMDEVIMAB (REGN10987) (EUA) 600 MG in SODIUM CHLO... IVPB ONE (13:00)
[2021-11-18 13:45] VITALS: RESP 18
[2021-11-18 14:45] VITALS: TEMP 99.1
[2021-11-18 15:28] VITALS: BP 129/89; PULSE 82
== END 2021-11-18 15:35 | disposition home or self-care (01) ==
LOC: EC 09:46
DX: U07.1 COVID-19 (principal); I10 Essential (primary) hypertension; K21.9 Gastro-esophageal reflux disease without esophagitis; E78.5 Hyperlipidemia, unspecified; Z87.891 Personal history of nicotine dependence; Z79.899 Other long term (current) drug therapy; Z88.6 Allergy status to analgesic agent
CPT/HCPCS: 36415; 93005; 80053; 82150; 83690; 84484; 85025; 81001; 87635; 71046; 99284; 96374; 96361; J2405; Q0244

== ENCOUNTER 2022-08-18 19:45 | Observation (INO) | payer MEDICARE, BC ==
[2022-08-18] MEDS ORDERED: IPRATROPIUM 0.5 MG/2.5 ML NEBU INHALATION STA (20:14)
[2022-08-18] MEDS ORDERED: ALBUTEROL NEBULIZED 2.5 MG/3 ML INHALATION STA (20:14)
[2022-08-18] MEDS ORDERED: methylPREDNISolone SOD SUCCI 125 MG/2 ML VIAL IV STA (20:14)
[2022-08-18] MEDS ORDERED: SODIUM CHLORIDE 0.9% 500 ML 500 ML IV STA (20:14)
--- NOTE | 2022-08-18 20:18 | ED ---
General Adult HPI - General Chief complaint: Shortness of Breath Stated complaint: BRIANA Time Seen by Provider: 08/18/22 20:02 Source: patient, RN notes reviewed, old records reviewed Mode of arrival: EMS Limitations: no limitations - History of Present Illness Initial comments: 86-year-old female presented with generalized weakness, cough and dyspnea his tory of COPD. Patient states she's had increased weakness and fatigue as well as a nonproductive cough. No fever. No chest pain. No abdominal pain. Poor appetite but no vomiting. - Related Data Home Medications Medication Instructions Recorded Confirmed amLODIPine [Norvasc] 5 mg PO HS 07/20/19 11/18/21 Omeprazole Magnesium [PriLOSEC] 20 mg PO DAILY 11/03/20 11/18/21 Simvastatin [Zocor] 20 mg PO HS 11/03/20 11/18/21 Previous Rx's Medication Instructions Recorded Acetaminophen [Tylenol] 325 mg PO Q6HR PRN 7 Days #28 11/18/21 capsule Albuterol Inhaler [Ventolin Hfa 1 puff INHALATION RT-QID #8 gm 11/18/21 Inhaler] Allergies Allergy/AdvReac Type Severity Reaction Status Date / Time aspirin AdvReac Nausea & Verified 11/18/21 11:31 Vomiting Review of Systems ROS Statement: Those systems with pertinent positive or pertinent negative responses have been documented in the HPI. ROS Other: All systems not noted in ROS Statement are negative. 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 Absent: tenderness, meningismus Respiratory exam: Present: respiratory distress, decreased breath sounds Cardiovascular Exam: Present: regular rate, normal rhythm GI/Abdominal exam: Present: soft. Absent: distended, tenderness Extremities exam: Present: normal inspection, normal capillary refill. Absent: pedal edema, calf tenderness Neurological exam: Present: alert, oriented X3, CN II-XII intact. Absent: motor sensory deficit Psychiatric exam: Present: normal affect, normal mood Skin exam: Present: warm, dry Course Vital Signs 08/18/22 08/18/22 08/18/22 19:52 20:00 20:20 Temperature 97.4 F L Pulse Rate 92 85 Respiratory 24 24 20 Rate Blood Pressure 139/64 139/64 O2 Sat by Pulse 94 L 93 L Oximetry 08/18/22 08/18/22 08/18/22 20:51 21:11 21:17 Temperature Pulse Rate 84 88 85 Respiratory 20 Rate Blood Pressure 139/64 O2 Sat by Pulse 94 L Oximetry - Reevaluation(s) Reevaluation #1: 08/18/22 22:04 We will add BNP, results pending EKG Findings - EKG Comments: EKG Findings:: EKG: Sinus rhythm, low voltage, rate 90, CA interval 167, QRS duration 112, QTC 412, no ST segment elevation, incomplete right bundle-branch block. Medical Decision Making - Medical Decision Making 86-year-old female with generalized weakness, cough and dyspnea. History of COPD. Treated with steroids, albuterol. Laboratory testing reveals no significant abnormalities. Urinalysis is positive for significant UTI. Patient started on antibiotics. She will be admitted for both COPD and UTI. Case discussed with Dr. Renner. - Lab Data Result diagrams: 08/18/22 Unknown 08/18/22 20:19 Lab Results 08/18/22 08/18/22 08/18/22 Range/Units 20:19 20:19 20:19 WBC (3.8-10.6) k/uL RBC (3.80-5.40) m/uL Hgb (11.4-16.0) gm/dL Hct (34.0-46.0) % MCV (80.0-100.0) fL MCH (25.0-35.0) pg MCHC (31.0-37.0) g/dL RDW (11.5-15.5) % Plt Count (150-450) k/uL MPV Neutrophils % % Lymphocytes % % Monocytes % % Eosinophils % % Basophils % % Neutrophils # (1.3-7.7) k/uL Lymphocytes # (1.0-4.8) k/uL Monocytes # (0-1.0) k/uL Eosinophils # (0-0.7) k/uL Basophils # (0-0.2) k/uL PT 11.1 (9.0-12.0) sec INR 1.0 (<1.2) APTT 22.7 (22.0-30.0) sec Sodium 133 L (137-145) mmol/L Potassium 4.4 (3.5-5.1) mmol/L Chloride 102 (98-107) mmol/L Carbon Dioxide 18 L (22-30) mmol/L Anion Gap 13 mmol/L BUN 21 H (7-17) mg/dL Creatinine 0.98 (0.52-1.04) mg/dL Est GFR (CKD-EPI)AfAm 61 (>60 ml/min/1.73 sqM) Est GFR (CKD-EPI)NonAf 53 (>60 ml/min/1.73 sqM) Glucose 99 (74-99) mg/dL Plasma Lactic Acid Sajan 1.1 (0.7-2.0) mmol/L Calcium 8.3 L (8.4-10.2) mg/dL Magnesium 1.6 (1.6-2.3) mg/dL Total Bilirubin 0.3 (0.2-1.3) mg/dL AST 26 (14-36) U/L ALT 12 (4-34) U/L Alkaline Phosphatase 146 H (38-126) U/L Troponin I (0.000-0.034) ng/mL Total Protein 5.6 L (6.3-8.2) g/dL Albumin 2.9 L (3.5-5.0) g/dL Urine Color Urine Appearance (Clear) Urine pH (5.0-8.0) Ur Specific [place] (1.001-1.035) Urine Protein (Negative) Urine Glucose (UA) (Negative) Urine Ketones (Negative) Urine Blood (Negative) Urine Nitrite (Negative) Urine Bilirubin (Negative) Urine Urobilinogen (<2.0) mg/dL Ur Leukocyte Esterase (Negative) Urine RBC (0-5) /hpf Urine WBC (0-5) /hpf Ur Squamous Epith Cells (0-4) /hpf Urine Bacteria (None) /hpf Urine Mucus (None) /hpf Coronavirus (PCR) (Not Detectd) 08/18/22 08/18/22 08/18/22 Range/Units 20:19 20:23 21:30 WBC (3.8-10.6) k/uL RBC (3.80-5.40) m/uL Hgb (11.4-16.0) gm/dL Hct (34.0-46.0) % MCV (80.0-100.0) fL MCH (25.0-35.0) pg MCHC (31.0-37.0) g/dL RDW (11.5-15.5) % Plt Count (150-450) k/uL MPV Neutrophils % % Lymphocytes % % Monocytes % % Eosinophils % % Basophils % % Neutrophils # (1.3-7.7) k/uL Lymphocytes # (1.0-4.8) k/uL Monocytes # (0-1.0) k/uL Eosinophils # (0-0.7) k/uL Basophils # (0-0.2) k/uL PT (9.0-12.0) sec INR (<1.2) APTT (22.0-30.0) sec Sodium (137-145) mmol/L Potassium (3.5-5.1) mmol/L Chloride (98-107) mmol/L Carbon Dioxide (22-30) mmol/L Anion Gap mmol/L BUN (7-17) mg/dL Creatinine (0.52-1.04) mg/dL Est GFR (CKD-EPI)AfAm (>60 ml/min/1.73 sqM) Est GFR (CKD-EPI)NonAf (>60 ml/min/1.73 sqM) Glucose (74-99) mg/dL Plasma Lactic Acid Sajan (0.7-2.0) mmol/L Calcium (8.4-10.2) mg/dL Magnesium (1.6-2.3) mg/dL Total Bilirubin (0.2-1.3) mg/dL AST (14-36) U/L ALT (4-34) U/L Alkaline Phosphatase (38-126) U/L Troponin I <0.012 (0.000-0.034) ng/mL Total Protein (6.3-8.2) g/dL Albumin (3.5-5.0) g/dL Urine Color Yellow Urine Appearance Cloudy H (Clear) Urine pH 6.5 (5.0-8.0) Ur Specific [place] 1.025 (1.001-1.035) Urine Protein 1+ H (Negative) Urine Glucose (UA) Negative (Negative) Urine Ketones Negative (Negative) Urine Blood Moderate H (Negative) Urine Nitrite Negative (Negative) Urine Bilirubin Negative (Negative) Urine Urobilinogen 2.0 (<2.0) mg/dL Ur Leukocyte Esterase Large H (Negative) Urine RBC >182 H (0-5) /hpf Urine WBC >182 H (0-5) /hpf Ur Squamous Epith Cells 2 (0-4) /hpf Urine Bacteria Moderate H (None) /hpf Urine Mucus Occasional H (None) /hpf Coronavirus (PCR) Not Detected (Not Detectd) 08/18/22 Range/Units Unknown WBC 9.8 (3.8-10.6) k/uL RBC 3.92 (3.80-5.40) m/uL Hgb 10.7 L (11.4-16.0) gm/dL Hct 34.1 (34.0-46.0) % MCV 87.0 (80.0-100.0) fL MCH 27.3 (25.0-35.0) pg MCHC 31.3 (31.0-37.0) g/dL RDW 14.0 (11.5-15.5) % Plt Count 452 H (150-450) k/uL MPV 7.4 Neutrophils % 64 % Lymphocytes % 25 % Monocytes % 9 % Eosinophils % 1 % Basophils % 0 % Neutrophils # 6.2 (1.3-7.7) k/uL Lymphocytes # 2.4 (1.0-4.8) k/uL Monocytes # 0.9 (0-1.0) k/uL Eosinophils # 0.1 (0-0.7) k/uL Basophils # 0.0 (0-0.2) k/uL PT (9.0-12.0) sec INR (<1.2) APTT (22.0-30.0) sec Sodium (137-145) mmol/L Potassium (3.5-5.1) mmol/L Chloride (98-107) mmol/L Carbon Dioxide (22-30) mmol/L Anion Gap mmol/L BUN (7-17) mg/dL Creatinine (0.52-1.04) mg/dL Est GFR (CKD-EPI)AfAm (>60 ml/min/1.73 sqM) Est GFR (CKD-EPI)NonAf (>60 ml/min/1.73 sqM) Glucose (74-99) mg/dL Plasma Lactic Acid Sajan (0.7-2.0) mmol/L Calcium (8.4-10.2) mg/dL Magnesium (1.6-2.3) mg/dL Total Bilirubin (0.2-1.3) mg/dL AST (14-36) U/L ALT (4-34) U/L Alkaline Phosphatase (38-126) U/L Troponin I (0.000-0.034) ng/mL Total Protein (6.3-8.2) g/dL Albumin (3.5-5.0) g/dL Urine Color Urine Appearance (Clear) Urine pH (5.0-8.0) Ur Specific [place] (1.001-1.035) Urine Protein (Negative) Urine Glucose (UA) (Negative) Urine Ketones (Negative) Urine Blood (Negative) Urine Nitrite (Negative) Urine Bilirubin (Negative) Urine Urobilinogen (<2.0) mg/dL Ur Leukocyte Esterase (Negative) Urine RBC (0-5) /hpf Urine WBC (0-5) /hpf Ur Squamous Epith Cells (0-4) /hpf Urine Bacteria (None) /hpf Urine Mucus (None) /hpf Coronavirus (PCR) (Not Detectd) Disposition Clinical Impression: Acute exacerbation of chronic obstructive pulmonary disease, UTI (urinary tract infection) Disposition: ADMITTED IP TO THIS HOSP Condition: Stable Is patient prescribed a controlled substance at d/c from ED?: No Referrals: Dali Akins DO [Primary Care Provider] - 1-2 days Time of Disposition: 22:05
[2022-08-18 20:40] LABS: Albumin 2.9 g/dL (3.5-5.0); Calcium 8.3 mg/dL (8.4-10.2); Magnesium 1.6 mg/dL (1.6-2.3); Potassium 4.4 mmol/L (3.5-5.1); Total Bilirubin 0.3 mg/dL (0.2-1.3); Total Protein 5.6 g/dL (6.3-8.2)
[2022-08-18] MEDS ORDERED: TIOTROPIUM 2.5 MCG INHALER INHALATION ONE (20:45)
[2022-08-18] MEDS ORDERED: ALBUTEROL HFA INHALER INHALATION ONE (20:45)
[2022-08-18 20:49] LABS: Partial Thromboplastin Time 22.7 sec (22.0-30.0); Prothrombin Time 11.1 sec (9.0-12.0)
--- NOTE | 2022-08-18 20:55 | XR ---
EXAMINATION TYPE: XR chest 2V DATE OF EXAM: 08/18/2022 8:43 PM COMPARISON: Chest radiographs from 11/18/2021 CT abdomen pelvis 08/10/2021 TECHNIQUE: XR chest 2V Frontal and lateral views of the chest. CLINICAL INDICATION:Female, 86 years old with history of difficulty breathing; FINDINGS: Lungs/Pleura: Diffuse interstitial lung markings with superimposed haziness. No evidence of pneumotho rax. Left pleural effusion. Pulmonary vascularity: Pulmonary vascular congestion. Heart/mediastinum: Cardiomediastinal silhouette is unremarkable. Musculoskeletal: No acute osseous pathology. IMPRESSION: 1. Mild pulmonary vascular congestion suggested with cardiomegaly correlate with serum BNP for conge stive heart failure. 2. COPD changes with interstitial lung disease. Subtle opacities are present which may be secondary to #1 versus superimposed atypical pneumonia.
[2022-08-18 21:27] LABS: Basophils % (A) 0 %; Eosinophils # (A) 0.1 k/uL (0-0.7); Eosinophils % (A) 1 %; HCT 34.1 % (34.0-46.0); HGB 10.7 gm/dL (11.4-16.0); Lymphocytes # (A) 2.4 k/uL (1.0-4.8); Lymphocytes % (A) 25 %; MCH 27.3 pg (25.0-35.0); MCHC 31.3 g/dL (31.0-37.0); Mean Platelet Volume 7.4; Monocytes # (A) 0.9 k/uL (0-1.0); Monocytes % (A) 9 %; Neutrophils # (A) 6.2 k/uL (1.3-7.7); Neutrophils % (A) 64 %; Platelet Count 452 k/uL (150-450); RBC 3.92 m/uL (3.80-5.40); WBC 9.8 k/uL (3.8-10.6)
[2022-08-18 21:50] LABS: Appearance,Urine Cloudy (Clear); Bacteria,Urine Moderate /hpf; Bilirubin,Urine Negative (Negative); Blood,Urine Moderate (Negative); Color,Urine Yellow; Glucose,Urine (UA) Negative (Negative); Ketones,Urine Negative (Negative); Leukocyte Esterase,Urine Large (Negative); Mucus,Urine Occasional /hpf; Nitrite,Urine Negative (Negative); PH, Urine 6.5 (5.0-8.0); Protein,Urine 1+ (Negative); RBC,Urine >182 /hpf (0-5); Specific Gravity,Urine 1.025 (1.001-1.035); Squamous Epithelial Cell,Urine 2 /hpf (0-4); WBC,Urine >182 /hpf (0-5)
[2022-08-18] MEDS ORDERED: NALOXONE 0.4 MG/ML 1 ML VIAL IVP PRN (21:50)
[2022-08-18] MEDS ORDERED: cefTRIAXone IN SWFI 1,000 MG/10 ML SYRINGE IVP STA (22:05)
[2022-08-18] MEDS: AZITHROMYCIN 500 MG TAB PO SCH (22:14)
[2022-08-19] MEDS: methylPREDNISolone SOD SUCCI 125 MG/2 ML VIAL IV SCH ×4 (02:53→19:43)
--- NOTE | 2022-08-19 03:36 | P.HPIM ---
History of Present Illness H&P Date: 08/18/22 Chief Complaint: Shortness of breath 86-year-old female with COPD history of lung cancer Patient was brought into the hospital for evaluation due to progressive increasing weakness generalized weakness, and increased difficulty in breathing with poor appetite. Patient reports non-productive cough. Decreased by mouth intake and having chills at home she denies any nausea vomiting denies any abdominal pain denies any changes in bowel or urinary habits denies any GI blee ding denies any chest pain. Patient family has noticed over the past week or 2 a significant decline in her level of activity and by mouth intake. Patient is known to have COPD however she is not on any home oxygen. She denies any tobacco smoking illicit drugs or alcohol. Patient was evaluated in the ED with family at bedside helping with history. No reports of falling patient uses a walker to ambulate. Workup in the ED showed stable vital signs blood work overall unremarkable except for acute anemia hemoglobin dropped down to 10 from a baseline of 13 no reported GI bleeding again Covid test negative Chest x-ray showed COPD changes with possible opacities Urinalysis was positive for possible UTI. Patient was diagnosed with UTI as an outpatient and she is currently on day 2 of Bactrim Review of Systems Pertinent positives as noted in HPI. 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, rt hip replacemnt - Past Anesthesia/Blood Transfusion Reactions: No Reported Reaction Past Psychological History: No Psychological Hx Reported Smoking Status: Former smoker Past Alcohol Use History: None Reported Past Drug Use History: None Reported - Past Family History Family Family Medical History: Coronary Artery Disease (CAD) Medications and Allergies Home Medications Medication Instructions Recorded Confirmed Type amLODIPine [Norvasc] 5 mg PO DAILY 07/20/19 08/18/22 History Simvastatin [Zocor] 20 mg PO HS 11/03/20 08/18/22 History Omeprazole 20 mg PO DAILY 08/18/22 08/18/22 History Ondansetron Odt [Zofran Odt] 4 mg PO Q8HR PRN 08/18/22 08/18/22 History Sulfamethox-Tmp 800-160Mg [Bactrim 1 tab PO Q12HR 08/18/22 08/18/22 History DS 800-160 mg] Allergies Allergy/AdvReac Type Severity Reaction Status Date / Time aspirin AdvReac Nausea & Verified 08/18/22 22:10 Vomiting Physical Exam Vitals: Vital Signs Temp Pulse Pulse Resp BP BP Pulse Ox 08/18/22 22:46 98.1 F 101 H 22 116/67 95 08/18/22 22:27 97.8 F 100 20 140/68 94 L 08/18/22 21:17 85 20 139/64 94 L 08/18/22 21:11 88 08/18/22 20:51 84 08/18/22 20:20 85 20 139/64 93 L 08/18/22 20:00 24 08/18/22 19:52 97.4 F L 92 24 139/64 94 L Intake and Output 08/18/22 08/18/22 08/19/22 14:59 22:59 06:59 Other: Weight 50.802 kg Constitutional: No acute distress, conversant, pleasant Eyes: Anicteric sclerae, moist conjunctiva, Pupils equal round reactive to light ENMT: NC/AT Oropharynx clear, no erythema, or exudates Neck: Supple, no masses, or JVD No carotid bruits No thyromegaly Lungs: Clear to auscultation Clear to percussion Normal respiratory effort, no accessory muscle use Cardiovascular: Heart regular in rate and rhythm, No murmurs, gallops, or rubs No peripheral edema Abdominal: Soft Nontender, no guarding, rebound or rigidity Abdomen moving with respiration Normoactive bowel sounds No hepatomegaly, No splenomegaly No palpable mass No abdominal wall hernia noted Skin: Normal temperature, tone, texture, turgor echymosis and bruising throughout legs and upper extremities Extremities: No digital cyanosis No clubbing Pedal pulses intact and symmetrical Radial pulses intact and symmetrical No calf tenderness Psychiatric: Alert and oriented to person, place and time Appropriate affect fair judgement Neuro Muscles Strength 4/5 in all 4 extremities Sensation to light touch grossly present throughout Cranial nerves II-XII grossly intact No focal sensory deficits Lymphatics: no palpable cervical or supraclavicular , or inguinal lymph nodes Results CBC & Chem 7: 08/18/22 Unknown 08/18/22 20:19 Labs: Abnormal Lab Results - Last 24 Hours (Table) 08/18/22 08/18/22 08/18/22 Range/Units 20:19 21:30 Unknown Hgb 10.7 L (11.4-16.0) gm/dL Plt Count 452 H (150-450) k/uL Sodium 133 L (137-145) mmol/L Carbon Dioxide 18 L (22-30) mmol/L BUN 21 H (7-17) mg/dL Calcium 8.3 L (8.4-10.2) mg/dL Alkaline Phosphatase 146 H (38-126) U/L Total Protein 5.6 L (6.3-8.2) g/dL Albumin 2.9 L (3.5-5.0) g/dL Urine Appearance Cloudy H (Clear) Urine Protein 1+ H (Negative) Urine Blood Moderate H (Negative) Ur Leukocyte Esterase Large H (Negative) Urine RBC >182 H (0-5) /hpf Urine WBC >182 H (0-5) /hpf Urine Bacteria Moderate H (None) /hpf Urine Mucus Occasional H (None) /hpf Microbiology - Last 24 Hours (Table) 08/18/22 21:30 Urine Culture - Preliminary Urine,Voided Thrombosis Risk Factor Assmnt - Choose All That Apply Each Factor Represents 1 point: Abnormal pulmonary function (COPD) Each Risk Factor Represents 3 Points: Age 75 years or older Other congenital or acquired thrombophilia - If yes, enter type in comment: No Thrombosis Risk Factor Assessment Total Risk Factor Score: 4 Thrombosis Risk Factor Assessment Level: Moderate Risk Assessment and Plan Assessment: shortness of breath , acute COPD exacerbation with possible underlying pneumonia inhalers systemic IV steroids supplemental oxygen as needed CXR showed COPD changes with possible opacities monitor vital signs ambulatory oxygen eval antibiotics with rocephine and azithromycin UTI rocephine as above follow up cultures acute anemia oumar GI bleeding monitor Hgb level nutrition consult due to decrease PO intake fall precautions dvt PPX heparin sc tid No code
[2022-08-19] MEDS: IPRATROPIUM-ALBUTEROL 3 ML NEB INHALATION SCH ×4 (08:35→21:04)
[2022-08-19] MEDS: amLODIPine 5 MG TAB PO SCH (08:44)
[2022-08-19] MEDS: PANTOPRAZOLE 40 MG TABLET PO SCH (08:44)
[2022-08-19] MEDS: HEPARIN SODIUM,PORCINE/PF 5,000 UNIT/0.5 ML SYRINGE SQ SCH ×3 (08:45→19:44)
[2022-08-19 13:55] VITALS: BMI 19.2
[2022-08-19] MEDS ORDERED: CALCIUM CARBONATE 500 MG CHEWABLE PO PRN (14:48)
--- NOTE | 2022-08-19 16:08 | P.PN ---
Subjective Progress Note Date: 08/19/22 Hospital course: Patient is a very pleasant 86-year-old female with a past medical history of COPD, home oxygen dependent, hypertension, hyperlipidemia, and history of lung cancer. She presented to the emergency department on 08/18/22 with a chief complaint of increased shortness of breath and decreased oral intake. Patient underwent full evaluation in the emergency department. CBC revealing normocytic normochromic anemia with hemoglobin of 10.7, platelet count slightly elevated at 452, coags normal, CMP revealing hyponatremia with sodium of 133, elevated BUN of 21, elevated alkaline phosphatase of 146, and hypoalbuminemia with albumin of 2.9. Urinalysis positive for infection. Covid PCR negative. EKG showing sinus mechanism at 90 bpm with an incomplete right bundle branch block. Chest x-ray revealing mild pulmonary vascular congestion with cardiomegaly concerning for congestive heart failure and COPD changes, unable to rule out superimposed atypical pneumonia. Physical exam: Patient was seen and fully evaluated at the bedside. Patient reports that she is feeling better at rest but continues to have significant shortness of breath with any exertion. BNP to be completed as well as echocardiogram. Patient has remained afebrile but at this time she will continue with azithromycin and Rocephin. Vital signs reviewed and stable. General: Nontoxic, no distress and appears stated age. Derm: Skin warm and dry, normal coloration for ethnicity. Head: Atraumatic, normocephalic and symmetric. Eyes: EOMs intact, no lid lag, and anicteric sclera Mouth: no lip lesions, mucus membranes moist Cardiovascular: regular rate and rhythm with normal S1S2, systolic murmur, positive posterior tibial pulses bilaterally, and cap refill < 2 seconds. Lungs: Respirations even, regular, and unlabored on room air. Lungs CTA bilaterally, no rhonchi, no rales, no wheezing, and no accessory muscle usage. Abdominal: soft, nontender to palpation, no guarding, no appreciable organomegaly Ext: ROM intact. No gross muscle atrophy, 1+ pitting bilateral lower extremity e john, no contractures Neuro: Speech clear, face symmetrical and CN II-XII grossly intact with no noted focal neuro deficits Psych: Alert and oriented to person, place, time, and situation. Appropriate and pleasant affect. Assessment and Plan of Care: Acute COPD exacerbation with concerns of underlying pneumonia vs congestive heart failure -Chest x-ray revealing mild pulmonary vascular congestion with cardiomegaly concerning for congestive heart failure and COPD changes, unable to rule out sup erimposed atypical pneumonia. -BNP to be completed -Echocardiogram -Oxygenation to be administered and titrated as needed to maintain SPO2 equal to or greater than 92% -Telemetry monitoring. -Mnitor Pulse-oximetry -Duonebs scheduled and as needed for SOB and/or wheezing -Incentive Spirometry -Steroids: Solu-Medrol -Antibiotics: Azithromycin and Rocephin UTI -Continue IV antibiotic Rocephin pending urine culture results. Acute normocytic normochromic anemia -Patient denies any noted blood loss or bleeding including melena, hematochezia, hematemesis, or bruising. -We will continue to monitor with repeat a.m. labs. Hypertension -Monitor vital signs and continue daily medication regimen with amlodipine Hyperlipidemia -Continue daily medication regimen with atorvastatin. CODE STATUS: DO NOT RESUSCITATE/DO NOT INTUBATE DVT prophylaxis: Heparin Discussed with: Patient and RN Anticipated discharge date: Clinical course to determine Anticipated discharge place: Home A total of 36 minutes was spent on the care of this complex patient more than 50% of the time was spent in counseling and care coordination. Objective - Vital Signs Vital signs: Vital Signs Temp 98.2 F 08/19/22 01:28 Pulse 80 08/19/22 08:42 Resp 18 08/19/22 01:28 BP 120/57 08/19/22 01:28 Pulse Ox 90 L 08/19/22 01:28 FiO2 Intake & Output 08/18/22 08/19/22 08/19/22 18:59 06:59 18:59 Weight 50.802 kg Other: Voiding Method Bedpan # Voids 2 - Labs CBC & Chem 7: 08/18/22 Unknown 08/18/22 20:19 Labs: Abnormal Lab Results - Last 24 Hours (Table) 08/18/22 08/18/22 08/18/22 Range/Units 20:19 21:30 Unknown Hgb 10.7 L (11.4-16.0) gm/dL Plt Count 452 H (150-450) k/uL Sodium 133 L (137-145) mmol/L Carbon Dioxide 18 L (22-30) mmol/L BUN 21 H (7-17) mg/dL Calcium 8.3 L (8.4-10.2) mg/dL Alkaline Phosphatase 146 H (38-126) U/L Total Protein 5.6 L (6.3-8.2) g/dL Albumin 2.9 L (3.5-5.0) g/dL Urine Appearance Cloudy H (Clear) Urine Protein 1+ H (Negative) Urine Blood Moderate H (Negative) Ur Leukocyte Esterase Large H (Negative) Urine RBC >182 H (0-5) /hpf Urine WBC >182 H (0-5) /hpf Urine Bacteria Moderate H (None) /hpf Urine Mucus Occasional H (None) /hpf Microbiology - Last 24 Hours (Table) 08/18/22 21:30 Urine Culture - Preliminary Urine,Voided
[2022-08-19] MEDS: AZITHROMYCIN 500 MG TAB PO SCH (19:44)
[2022-08-19] MEDS: ATORVASTATIN 10 MG TAB PO SCH (19:44)
[2022-08-20] MEDS: methylPREDNISolone SOD SUCCI 125 MG/2 ML VIAL IV SCH ×4 (01:27→21:26)
[2022-08-20] MEDS: amLODIPine 5 MG TAB PO SCH (07:55)
[2022-08-20] MEDS: HEPARIN SODIUM,PORCINE/PF 5,000 UNIT/0.5 ML SYRINGE SQ SCH ×3 (07:55→22:04)
[2022-08-20] MEDS: PANTOPRAZOLE 40 MG TABLET PO SCH (07:55)
[2022-08-20] MEDS: IPRATROPIUM-ALBUTEROL 3 ML NEB INHALATION SCH ×4 (09:06→19:33)
[2022-08-20 10:55] LABS: HCT 31.5 % (37.2-46.3); HGB 9.9 g/dL (12.0-15.0); MCH 27.2 pg (27.0-32.0); MCHC 31.4 g/dL (32.0-37.0); MCV 86.5 fL (80.0-97.0); NRBC Per 100 WBC 0 /100 WBCS (0.0-0.0); Platelet Count 490 X 10*3/uL (140-440); RBC 3.64 X 10*6/uL (4.10-5.20); RDW 15.1 % (11.5-14.5); WBC 10.89 X 10*3/uL (4.50-10.00)
[2022-08-20 11:43] LABS: ALT 13 U/L (8-44); AST 17 U/L (13-35); African American GFR (CKD) 59.9 (60.0-200.0); Alkaline Phosphatase 127 U/L (41-126); Blood Urea Nitrogen 18.6 mg/dL (9.0-27.0); Calcium 8.8 mg/dL (8.7-10.3); Carbon Dioxide 19.8 mmol/L (20.0-27.5); Chloride 103 mmol/L (96-109); Globulin 2.5 g/dL (1.6-3.3); Glucose 125 mg/dL (70-110); Magnesium 1.9 mg/dL (1.5-2.4); Non-African American GFR(CKD) 51.7 (60.0-200.0); Potassium 4.8 mmol/L (3.5-5.5); Sodium 136 mmol/L (135-145); Total Bilirubin <0.15 mg/dL (0.30-1.20); Total Protein 5.5 g/dL (6.2-8.2)
--- NOTE | 2022-08-20 15:26 | CA ---
Transthoracic Echo Report Name: Patricia Oh Age: 86 Gender: F : 1935 Exam Date: 08/20/2022 13:42 Exam Location: [facility] Ht (in): 64 Wt (lb): 112 Ordering Physician: Matthew Murphy Attending/Referring Phys: Business Support Liaison Janelle Jeff RDCS Procedure CPT: Indications: Evaluate structure and function Cardiac Hx: Technical Quality: Contrast 1: Total Dose (mL): Contrast 2: Total Dose (mL): MEASUREMENTS (Male / Female) Normal Values 2D ECHO LA Volume 59.6 cm??? 18 - 58 / 22 - 52 cm??? M-MODE Aortic Root Diameter MM 3.3 cm LA Systolic Diameter MM 4.5 cm LA Ao Ratio MM 1.4 AV Cusp Separation MM 1.8 cm DOPPLER MV Area PHT 4.0 cm??? Mitral E Point Velocity 102.6 cm/s Mitral A Point Velocity 116.0 cm/s Mitral E to A Ratio 0.9 MV Deceleration Time 187.7 ms MV E' Velocity 5.0 cm/s Mitral E to MV E' Ratio 20.5 TR Peak Velocity 255.2 cm/s TR Peak Gradient 26.1 mmHg Right Ventricular Systolic Press 31.1 mmHg FINDINGS Left Ventricle Left ventricular ejection fraction is estimated at 50-55%. Right Ventricle Normal right ventricular size and function. Right Atrium Normal right atrial size. Left Atrium Mildly increased left atrial volume. Mitral Valve Mitral annular calcification. Mild mitral regurgitation. Aortic Valve Trileaflet aortic valve. Aortic valve sclerosis. Tricuspid Valve Structurally normal tricuspid valve. Mild tricuspid regurgitation. Pulmonic Valve Pulmonic valve not well visualized. Pericardium Echo free space anterior to the right ventricle likely represents a fat pad. Aorta Normal size aortic root and proximal ascending aorta. CONCLUSIONS Normal LV systolic function My clinic calcification with mild mitral regurgitation Aortic sclerosis without any stenosis Anterior echo-free space probably pericardial fat pad Previewed by: Dr. Levi Concepcion MD (Electronically Signed) Final Date: 20 August 2022 15:25
--- NOTE | 2022-08-20 17:20 | P.PN ---
Subjective Progress Note Date: 08/20/22 Hospital course: Patient is a very pleasant 86-year-old female with a past medical history of COPD, home oxygen dependent, hypertension, hyperlipidemia, and history of lung cancer. She presented to the emergency department on 08/18/22 with a chief complaint of increased shortness of breath and decreased oral intake. Patient underwent full evaluation in the emergency department. CBC revealing normocytic normochromic anemia with hemoglobin of 10.7, platelet count slightly elevated at 452, coags normal, CMP revealing hyponatremia with sodium of 133, elevated BUN of 21, elevated alkaline phosphatase of 146, and hypoalbuminemia with albumin of 2.9. Urinalysis positive for infection. Covid PCR negative. EKG showing sinus mechanism at 90 bpm with an incomplete right bundle branch block. Chest x-ray revealing mild pulmonary vascular congestion with cardiomegaly concerning for congestive heart failure and COPD changes, unable to rule out superimposed atypical pneumonia. Patient was started on Rocephin and azithromycin and admitted under our services at this time. Physical exam: Patient was seen and fully evaluated at the bedside. Patient was seen and fully evaluated at bedside this morning. She reports feeling much better this morning and appears to be doing well. She remains on room air with SpO2 of 94%. Vital signs unremarkable. Morning labs reviewed. Hemoglobin stable at 9.9. Awaiting completion of echocardiogram. Discussed with patient and at bedside patient will likely be discharged within the next 24 hours. Vital signs reviewed and stable. General: Nontoxic, no distress and appears stated age. Derm: Skin warm and dry, normal coloration for ethnicity. Head: Atraumatic, normocephalic and symmetric. Eyes: EOMs intact, no lid lag, and anicteric sclera Mouth: no lip lesions, mucus membranes moist Cardiovascular: regular rate and rhythm with normal S1S2, systolic murmur, positive posterior tibial pulses bilaterally, and cap refill < 2 seconds. Lungs: Respirations even, regular, and unlabored on room air. Lungs soft expiratory wheezes, no rales, rhonchi, or crackles noted. Abdominal: soft, nontender to palpation, no guarding, no appreciable organomegaly Ext: ROM intact. No gross muscle atrophy, 1+ pitting bilateral lower extremity edema, no contractures Neuro: Speech clear, face symmetrical and CN II-XII grossly intact with no noted focal neuro deficits Psych: Alert and oriented to person, place, time, and situation. Appropriate and pleasant affect. Assessment and Plan of Care: Acute COPD exacerbation with concerns of underlying pneumonia vs congestive heart failure -Chest x-ray revealing mild pulmonary vascular congestion with cardiomegaly concerning for congestive heart failure and COPD changes, unable to rule out superimposed atypical pneumonia. -BNP to be completed -Echocardiogram -Oxygenation to be administered and titrated as needed to maintain SPO2 equal to or greater than 92% -Telemetry monitoring. -Mnitor Pulse-oximetry -Duonebs scheduled and as needed for SOB and/or wheezing -Incentive Spirometry -Steroids: Solu-Medrol with plans to discharge home on prednisone -Antibiotics: Azithromycin and Rocephin UTI -Continue IV antibiotic Rocephin pending urine culture results. Acute normocytic normochromic anemia -Patient denies any noted blood loss or bleeding including melena, hematochezia, hematemesis, or bruising. -We will continue to monitor with repeat a.m. labs. Hypertension -Monitor vital signs and continue daily medication regimen with amlodipine Hyperlipidemia -Continue daily medication regimen with atorvastatin. CODE STATUS: DO NOT RESUSCITATE/DO NOT INTUBATE DVT prophylaxis: Heparin Discussed with: Patient, patient has been and RN Anticipated discharge date: Likely tomorrow morning Anticipated discharge place: Home A total of 33 minutes was spent on the care of this complex patient more than 50% of the time was spent in counseling and care coordination. Objective - Vital Signs Vital signs: Vital Signs Temp 97.7 F 08/20/22 07:20 Pulse 92 08/20/22 09:16 Resp 16 08/20/22 07:20 BP 133/70 08/20/22 07:20 Pulse Ox 94 L 08/20/22 07:20 FiO2 Intake & Output 08/19/22 08/20/22 08/20/22 18:59 06:59 18:59 Intake Total 220 Output Total 2 4 Balance -2 -4 220 Weight 50.802 kg Intake: Oral 220 Output: Stool 2 4 Other: Voiding Method Bedpan # Voids 5 3 1 # Bowel Movements 1 - Labs CBC & Chem 7: 08/20/22 06:52 08/20/22 06:52
[2022-08-20] MEDS: ATORVASTATIN 10 MG TAB PO SCH (21:24)
[2022-08-20] MEDS: AZITHROMYCIN 500 MG TAB PO SCH (21:24)
[2022-08-21] MEDS: methylPREDNISolone SOD SUCCI 125 MG/2 ML VIAL IV SCH ×2 (02:00→07:14)
[2022-08-21 04:26] LABS: HCT 34.1 % (34.0-46.0); HGB 10.7 gm/dL (11.4-16.0); MCH 26.8 pg (25.0-35.0); MCHC 31.3 g/dL (31.0-37.0); MCV 85.5 fL (80.0-100.0); Mean Platelet Volume 7.8; Platelet Count 493 k/uL (150-450); RBC 3.99 m/uL (3.80-5.40); RDW 13.9 % (11.5-15.5); WBC 10.8 k/uL (3.8-10.6)
[2022-08-21 04:47] LABS: ALT 17 U/L (4-34); AST 25 U/L (14-36); African American GFR (CKD) 71 (>60 ml/min/1.73 sqM); Albumin 2.9 g/dL (3.5-5.0); Albumin/Globulin Ratio 1.2; Alkaline Phosphatase 120 U/L (38-126); Anion Gap 11 mmol/L; Blood Urea Nitrogen 27 mg/dL (7-17); Calcium 8.6 mg/dL (8.4-10.2); Carbon Dioxide 21 mmol/L (22-30); Chloride 103 mmol/L (98-107); Globulin 2.5 g/dL; Glucose 133 mg/dL (74-99); Non-African American GFR(CKD) 62 (>60 ml/min/1.73 sqM); Potassium 4.3 mmol/L (3.5-5.1); Sodium 135 mmol/L (137-145); Total Bilirubin 0.2 mg/dL (0.2-1.3); Total Protein 5.4 g/dL (6.3-8.2)
[2022-08-21] MEDS: HEPARIN SODIUM,PORCINE/PF 5,000 UNIT/0.5 ML SYRINGE SQ SCH (07:14)
[2022-08-21] MEDS: PANTOPRAZOLE 40 MG TABLET PO SCH (07:14)
[2022-08-21] MEDS: IPRATROPIUM-ALBUTEROL 3 ML NEB INHALATION SCH ×2 (07:36→11:49)
[2022-08-21 07:49] VITALS: BP 111/64; TEMP 97.5
[2022-08-21] MEDS: amLODIPine 5 MG TAB PO SCH (09:21)
[2022-08-21 11:58] VITALS: PULSE 82; RESP 18
--- NOTE | 2022-08-21 16:23 | P.DS ---
Providers Date of admission: 08/18/22 21:50 Expected date of discharge: 08/21/22 Attending physician: Syed Renner MD Primary care physician: Dali Akins Hospital Course: Discharge Diagnosis: Acute COPD exacerbation. patient 3 day course of azithromycin and Rocephin for treatment of possible underlying pneumonia. She showed no signs of infection and had daily improvement. patient discharged home on prednisone taper, Symbicort, and albuterol inhaler. Patient is follow up outpatient with cooker sulfite. -Chest x-ray revealing mild pulmonary vascular congestion with cardiomegaly concerning for congestive heart failure and COPD changes, unable to rule out superimposed atypical pneumonia. UTI. urine culture showing no growth to date. Patient discharged home on Ceftin 500 mg twice daily 5 days. Acute normocytic normochromic anemia. Hemoglobin stable on day of discharge 10.7. Hypertension. Monitor vital signs and continue daily medication regimen with amlodipine Hyperlipidemia. Continue daily medication regimen with atorvastatin. Hospital Course: Patient is a very pleasant 86-year-old female with a past medical history of COPD home oxygen dependent, hypertension, hyperlipidemia, and history of lung cancer. She presented to the emergency department on 08/18/22 with a chief complaint of increased shortness of breath and decreased oral intake. Patient underwent full evaluation in the emergency department. CBC revealing normocytic normochromic anemia with hemoglobin of 10.7, platelet count slightly elevated at 452, coags normal, CMP revealing hyponatremia with sodium of 133, elevated BUN of 21, elevated alkaline phosphatase of 146, and hypoalbuminemia with albumin of 2.9. Urinalysis positive for infection. Covid PCR negative. EKG showing sinus mechanism at 90 bpm with an incomplete right bundle branch block. Chest x-ray revealing mild pulmonary vascular congestion with cardiomegaly concerning for congestive heart failure and COPD changes, unable to rule out superimposed atypical pneumonia. Patient was started on Rocephin and azithromycin and admitted under our services for COPD exacerbation and UTI. patient received antibiotics Rocephin and azithromycin throughout hospitalization and was placed on scheduled and as needed breathing treatments and steroids. Patient's condition significantly improved. Patient ambulatory treatment from bathroom in room and reports feeling much much better. Patient denies having any shortness of breath at rest and vital signs are stable. Patient is medically stable for discharge home at this time and to follow-up outpatient with PCP and pulmonary. Patient discharged home on Ceftin 500 mg twice daily for an additional 5 days for treatment of UTI. She was also discharged home on prednisone taper, Symbicort, and Ventolin inhaler. Physical exam: Vital signs reviewed and stable. General: Nontoxic, no distress and appears stated age. Derm: Skin warm and dry, normal coloration for ethnicity. Head: Atraumatic, normocephalic and symmetric. Eyes: EOMs intact, no lid lag, and anicteric sclera Mouth: no lip lesions, mucus membranes moist Cardiovascular: regular rate and rhythm with normal S1S2, systolic murmur, positive posterior tibial pulses bilaterally, and cap refill < 2 seconds. Lungs: Respirations even, regular, and unlabored on room air. Lungs soft expiratory wheezes, no rales, rhonchi, or crackles noted. Abdominal: soft, nontender to palpation, no guarding, no appreciable organomegaly Ext: ROM intact. No gross muscle atrophy, 1+ pitting bilateral lower extremity edema, no contractures Neuro: Speech clear, face symmetrical and CN II-XII grossly intact with no noted focal neuro deficits Psych: Alert and oriented to person, place, time, and situation. Appropriate and pleasant affect. A total of 31 minutes of time were spent preparing this complex discharge summary. Pt was discharged on 08/21/22 at 9:54 AM. Patient Condition at Discharge: Stable Plan - Discharge Summary Discharge Rx Participant: No New Discharge Prescriptions: New cefUROXime axetiL [Ceftin] 500 mg PO BID 5 Days #10 tab predniSONE See Taper PO DIRECTED 12 Days #30 tab Budesonide-Formot 160-4.5 Mcg [Symbicort 160-4.5 Mcg Inhaler] 2 puff INHALATION BID 30 Days #1 each Albuterol Inhaler [Ventolin Hfa Inhaler] 2 puff INHALATION Q4H PRN 30 Days #1 dispenser PRN Reason: Shortness Of Breath Or Wheezing Continue amLODIPine [Norvasc] 5 mg PO DAILY Simvastatin [Zocor] 20 mg PO HS Ondansetron Odt [Zofran ODT] 4 mg PO Q8HR PRN PRN Reason: Nausea Omeprazole 20 mg PO DAILY Discontinued Sulfamethox-Tmp 800-160Mg [Bactrim DS 800-160 mg] 1 tab PO Q12HR Discharge Medication List amLODIPine [Norvasc] 5 mg PO DAILY 07/20/19 [History] Simvastatin [Zocor] 20 mg PO HS 11/03/20 [History] Omeprazole 20 mg PO DAILY 08/18/22 [History] Ondansetron Odt [Zofran ODT] 4 mg PO Q8HR PRN 08/18/22 [History] Albuterol Inhaler [Ventolin Hfa Inhaler] 2 puff INHALATION Q4H PRN 30 Days #1 dispenser 08/21/22 [Rx] Budesonide-Formot 160-4.5 Mcg [Symbicort 160-4.5 Mcg Inhaler] 2 puff INHALATION BID 30 Days #1 each 08/21/22 [Rx] cefUROXime axetiL [Ceftin] 500 mg PO BID 5 Days #10 tab 08/21/22 [Rx] predniSONE See Taper PO DIRECTED 12 Days #30 tab 08/21/22 [Rx] Follow up Appointment(s)/Referral(s): Dali Akins DO [Primary Care Provider] - 1-2 days Jd Hernandez MD [STAFF PHYSICIAN] - 1 Week Patient Instructions/Handouts: COPD (Chronic Obstructive Pulmonary Disease) (DC), Chronic Lung Disease and Infection Prevention (DC), Pulmonary Rehabilitation (DC), Dyspnea Scale and Exercise (DC), Nutrition Guidelines for People with COPD (DC) Activity/Diet/Wound Care/Special Instructions: Activity: As tolerated. Take breaks as needed. Diet: Heart healthy and carb consistent diet. Avoid salts, or foods with hidden salts such as canned or boxed foods and frozen dinners. Extra salt makes your heart work harder and traps the fluid in your body for longer. Special Instructions: Take all of your medications as directed and remember to keep all of your doctor's appointments and follow-up as needed. Thank you for allowing us to participate in your care, it was truly a pleasure having you for our patient!!! Discharge Disposition: HOME SELF-CARE
== END 2022-08-21 12:46 | disposition home or self-care (01) ==
LOC: EC 19:45 → 4SSUR 21:50
PROVIDERS: ADMIT Internal Medicine; ATTEND Internal Medicine
DX: J44.1 Chronic obstructive pulmonary disease with (acute) exacerbation (principal); N39.0 Urinary tract infection, site not specified; I11.9 Hypertensive heart disease without heart failure; D64.9 Anemia, unspecified; E87.1 Hypo-osmolality and hyponatremia; J84.9 Interstitial pulmonary disease, unspecified; E78.5 Hyperlipidemia, unspecified; K21.9 Gastro-esophageal reflux disease without esophagitis; E88.09 Other disorders of plasma-protein metabolism, not elsewhere classified; R74.8 Abnormal levels of other serum enzymes; I45.10 Unspecified right bundle-branch block; Z66 Do not resuscitate; Z99.81 Dependence on supplemental oxygen; Z20.822 Contact with and (suspected) exposure to COVID-19; Z79.899 Other long term (current) drug therapy; Z88.6 Allergy status to analgesic agent; Z85.118 Personal history of other malignant neoplasm of bronchus and lung; Z90.49 Acquired absence of other specified parts of digestive tract; Z96.641 Presence of right artificial hip joint; Z87.891 Personal history of nicotine dependence; Z98.890 Other specified postprocedural states; Z82.49 Family history of ischemic heart disease and other diseases of the circulatory system
CPT/HCPCS: 96376 ×4; 96365; 96366 ×2; 96372 ×3; 96361; 96375; 99285; 36415; 94640 ×7; 94760; 93005; 93306; 83880; 80053 ×3; 83605; 83735 ×2; 84484; 85025; 85027 ×2; 85610; 85730; 81001; 87086; 87635; 71046; G0378 ×4; J2930 ×4; J0696 ×3; J1644 ×3

== ENCOUNTER 2022-09-01 15:12 | Inpatient (IN) | payer MEDICARE, BC ==
--- NOTE | 2022-09-01 16:22 | XR ---
EXAMINATION TYPE: XR chest 2V DATE OF EXAM: 09/01/2022 COMPARISON: 08/18/2022 INDICATION: Fall, pain TECHNIQUE: Frontal and lateral views of the chest are obtained. Patient is rotated to the right. FINDINGS: The heart size is normal. The pulmonary vasculature is normal. The lungs are clear. There is increase AP diameter and flattening of the diaphragms compatible with emphysematous changes. No pneumothorax is evident. IMPRESSION: 1. No acute pulmonary process. 2. COPD.
--- NOTE | 2022-09-01 16:23 | XR ---
EXAMINATION TYPE: XR Hip Complete LT DATE OF EXAM: 09/01/2022 COMPARISON: None HISTORY: Fall, pain TECHNIQUE: 2 view left hip FINDINGS: Femoral head articulates with the acetabulum. No acute fracture or dislocation is evident. Vascular calcification is present. Joint space appears preserved. Follow up exams can be performed 7- 10 days Jessica trauma for continued pain. IMPRESSION: 1. No acute osseous abnormality left hip.
[2022-09-01] MEDS ORDERED: IPRATROPIUM-ALBUTEROL 3 ML NEB INHALATION STA (16:53)
--- NOTE | 2022-09-01 17:02 | ED ---
General Adult HPI - General Chief complaint: Fall Stated complaint: oxygen level low Time Seen by Provider: 09/01/22 16:38 Source: patient Mode of arrival: wheelchair Limitations: no limitations - History of Present Illness Initial comments: This patient is an 86-year-old woman who presents to be evaluated for mainly a worsening of her cough. History is from both the patient and her family. They state that she had been admitted recently in the hospital, and discharged August 21 after stay for COPD exacerbation. She also had received antibiotic coverage for possible pneumonia and in the medical record note is made of some element of congestive heart failure suspected. The patient had been home, seeming to improve and then since the weekend has had more regular "rattling" cough. No fevers noted. No change in urination or bowel movements. The patient self didn't mention having a fall on Tuesday when she was in the triage area but states that this is not her main complaint. She did note an area of swelling in the leg but has been able to ambulate and bear weight. Following discharge, the patient had a prednisone taper and has been using inhalers, and again was briefly improving but for the past 3-4 days having worsening of cough. -: days(s) Severity scale (1-10): 0 Consistency: constant Improves with: none Worsens with: none Associated Symptoms: confusion, cough, shortness of breath - Related Data Home Medications Medication Instructions Recorded Confirmed amLODIPine [Norvasc] 5 mg PO DAILY 07/20/19 09/01/22 Simvastatin [Zocor] 20 mg PO HS 11/03/20 09/01/22 Omeprazole 20 mg PO DAILY 08/18/22 09/01/22 Ondansetron Odt [Zofran ODT] 4 mg PO Q8HR PRN 08/18/22 09/01/22 Albuterol Inhaler [Ventolin Hfa 2 puff INHALATION RT-Q4H PRN 09/01/22 09/01/22 Inhaler] Budesonide-Formot 160-4.5 Mcg 2 puff INHALATION RT-BID 09/01/22 09/01/22 [Symbicort 160-4.5 Mcg Inhaler] Previous Rx's Medication Instructions Recorded predniSONE See Taper PO DIRECTED 12 Days 08/21/22 #30 tab Allergies Allergy/AdvReac Type Severity Reaction Status Date / Time aspirin AdvReac Nausea & Verified 10/05/22 17:44 Vomiting Review of Systems ROS Statement: Those systems with pertinent positive or pertinent negative responses have been documented in the HPI. ROS Other: All systems not noted in ROS Statement are negative. Constitutional: Denies: fever, chills, weakness Respiratory: Reports: cough, dyspnea. Denies: wheezes, hemoptysis Cardiovascular: Reports: orthopnea. Denies: chest pain, palpitations, edema, syncope Gastrointestinal: Denies: abdominal pain, vomiting, diarrhea Genitourinary: Denies: dysuria, hematuria Musculoskeletal: Denies: back pain Skin: Denies: rash Neurological: Reports: confusion. 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 Absent: scleral icterus, conjunctival injection Neck exam: Present: normal inspection Respiratory exam: Present: wheezes, rhonchi. Absent: respiratory distress, rales, stridor, chest wall tenderness, accessory muscle use, decreased breath sounds Cardiovascular Exam: Present: regular rate, normal rhythm, normal heart sounds. Absent: systolic murmur, diastolic murmur, rubs, gallop GI/Abdominal exam: Present: soft. Absent: distended, tenderness, guarding, rebound, rigid, mass Extremities exam: Present: normal inspection, normal capillary refill. Absent: pedal edema, calf tenderness Back exam: Present: normal inspection. Absent: CVA tenderness (R), CVA tenderness (L) Neurological exam: Present: alert Skin exam: Present: warm, dry, intact, normal color. Absent: rash Course Vital Signs 09/01/22 09/01/22 09/01/22 15:19 17:28 17:49 Temperature 97.5 F L Pulse Rate 84 85 88 Respiratory 16 16 20 Rate Blood Pressure 103/63 108/78 O2 Sat by Pulse 92 L 95 Oximetry 09/01/22 17:56 Temperature Pulse Rate 84 Respiratory 18 Rate Blood Pressure O2 Sat by Pulse Oximetry Medical Decision Making - Lab Data Result diagrams: 09/01/22 17:11 09/01/22 17:11 Lab Results 09/01/22 09/01/22 09/01/22 Range/Units 17:11 17:11 17:11 WBC 19.2 H (3.8-10.6) k/uL RBC 4.82 (3.80-5.40) m/uL Hgb 13.5 (11.4-16.0) gm/dL Hct 41.5 (34.0-46.0) % MCV 86.1 (80.0-100.0) fL MCH 27.9 (25.0-35.0) pg MCHC 32.4 (31.0-37.0) g/dL RDW 14.9 (11.5-15.5) % Plt Count 281 (150-450) k/uL MPV 7.9 Neutrophils % 89 % Lymphocytes % 6 % Monocytes % 4 % Eosinophils % 0 % Basophils % 0 % Neutrophils # 17.2 H (1.3-7.7) k/uL Lymphocytes # 1.1 (1.0-4.8) k/uL Monocytes # 0.8 (0-1.0) k/uL Eosinophils # 0.0 (0-0.7) k/uL Basophils # 0.0 (0-0.2) k/uL PT 10.1 (9.0-12.0) sec INR 0.9 (<1.2) APTT 23.7 (22.0-30.0) sec D-Dimer 1.61 H (<0.60) mg/L FEU Sodium 135 L (137-145) mmol/L Potassium 4.3 (3.5-5.1) mmol/L Chloride 97 L (98-107) mmol/L Carbon Dioxide 24 (22-30) mmol/L Anion Gap 14 mmol/L BUN 26 H (7-17) mg/dL Creatinine 0.97 (0.52-1.04) mg/dL Est GFR (CKD-EPI)AfAm 62 (>60 ml/min/1.73 sqM) Est GFR (CKD-EPI)NonAf 54 (>60 ml/min/1.73 sqM) Glucose 103 H (74-99) mg/dL Plasma Lactic Acid Sajan (0.7-2.0) mmol/L Calcium 8.5 (8.4-10.2) mg/dL Magnesium 1.7 (1.6-2.3) mg/dL Total Bilirubin 0.7 (0.2-1.3) mg/dL AST 26 (14-36) U/L ALT 50 H (4-34) U/L Alkaline Phosphatase 114 (38-126) U/L Troponin I (0.000-0.034) ng/mL NT-Pro-B Natriuret Pep pg/mL Total Protein 5.8 L (6.3-8.2) g/dL Albumin 3.4 L (3.5-5.0) g/dL Urine Color Urine Appearance (Clear) Urine pH (5.0-8.0) Ur Specific [place] (1.001-1.035) Urine Protein (Negative) Urine Glucose (UA) (Negative) Urine Ketones (Negative) Urine Blood (Negative) Urine Nitrite (Negative) Urine Bilirubin (Negative) Urine Urobilinogen (<2.0) mg/dL Ur Leukocyte Esterase (Negative) Urine RBC (0-5) /hpf Urine WBC (0-5) /hpf Ur Squamous Epith Cells (0-4) /hpf Hyaline Casts (0-2) /lpf Urine Mucus (None) /hpf 09/01/22 09/01/22 09/01/22 Range/Units 17:11 17:11 17:11 WBC (3.8-10.6) k/uL RBC (3.80-5.40) m/uL Hgb (11.4-16.0) gm/dL Hct (34.0-46.0) % MCV (80.0-100.0) fL MCH (25.0-35.0) pg MCHC (31.0-37.0) g/dL RDW (11.5-15.5) % Plt Count (150-450) k/uL MPV Neutrophils % % Lymphocytes % % Monocytes % % Eosinophils % % Basophils % % Neutrophils # (1.3-7.7) k/uL Lymphocytes # (1.0-4.8) k/uL Monocytes # (0-1.0) k/uL Eosinophils # (0-0.7) k/uL Basophils # (0-0.2) k/uL PT (9.0-12.0) sec INR (<1.2) APTT (22.0-30.0) sec D-Dimer (<0.60) mg/L FEU Sodium (137-145) mmol/L Potassium (3.5-5.1) mmol/L Chloride (98-107) mmol/L Carbon Dioxide (22-30) mmol/L Anion Gap mmol/L BUN (7-17) mg/dL Creatinine (0.52-1.04) mg/dL Est GFR (CKD-EPI)AfAm (>60 ml/min/1.73 sqM) Est GFR (CKD-EPI)NonAf (>60 ml/min/1.73 sqM) Glucose (74-99) mg/dL Plasma Lactic Acid Sajan 1.8 (0.7-2.0) mmol/L Calcium (8.4-10.2) mg/dL Magnesium (1.6-2.3) mg/dL Total Bilirubin (0.2-1.3) mg/dL AST (14-36) U/L ALT (4-34) U/L Alkaline Phosphatase (38-126) U/L Troponin I 0.017 (0.000-0.034) ng/mL NT-Pro-B Natriuret Pep 2360 pg/mL Total Protein (6.3-8.2) g/dL Albumin (3.5-5.0) g/dL Urine Color Urine Appearance (Clear) Urine pH (5.0-8.0) Ur Specific [place] (1.001-1.035) Urine Protein (Negative) Urine Glucose (UA) (Negative) Urine Ketones (Negative) Urine Blood (Negative) Urine Nitrite (Negative) Urine Bilirubin (Negative) Urine Urobilinogen (<2.0) mg/dL Ur Leukocyte Esterase (Negative) Urine RBC (0-5) /hpf Urine WBC (0-5) /hpf Ur Squamous Epith Cells (0-4) /hpf Hyaline Casts (0-2) /lpf Urine Mucus (None) /hpf 10/05/22 Range/Units 17:28 WBC (3.8-10.6) k/uL RBC (3.80-5.40) m/uL Hgb (11.4-16.0) gm/dL Hct (34.0-46.0) % MCV (80.0-100.0) fL MCH (25.0-35.0) pg MCHC (31.0-37.0) g/dL RDW (11.5-15.5) % Plt Count (150-450) k/uL MPV Neutrophils % % Lymphocytes % % Monocytes % % Eosinophils % % Basophils % % Neutrophils # (1.3-7.7) k/uL Lymphocytes # (1.0-4.8) k/uL Monocytes # (0-1.0) k/uL Eosinophils # (0-0.7) k/uL Basophils # (0-0.2) k/uL PT (9.0-12.0) sec INR (<1.2) APTT (22.0-30.0) sec D-Dimer (<0.60) mg/L FEU Sodium (137-145) mmol/L Potassium (3.5-5.1) mmol/L Chloride (98-107) mmol/L Carbon Dioxide (22-30) mmol/L Anion Gap mmol/L BUN (7-17) mg/dL Creatinine (0.52-1.04) mg/dL Est GFR (CKD-EPI)AfAm (>60 ml/min/1.73 sqM) Est GFR (CKD-EPI)NonAf (>60 ml/min/1.73 sqM) Glucose (74-99) mg/dL Plasma Lactic Acid Sajan (0.7-2.0) mmol/L Calcium (8.4-10.2) mg/dL Magnesium (1.6-2.3) mg/dL Total Bilirubin (0.2-1.3) mg/dL AST (14-36) U/L ALT (4-34) U/L Alkaline Phosphatase (38-126) U/L Troponin I (0.000-0.034) ng/mL NT-Pro-B Natriuret Pep pg/mL Total Protein (6.3-8.2) g/dL Albumin (3.5-5.0) g/dL Urine Color Yellow Urine Appearance Clear (Clear) Urine pH 5.5 (5.0-8.0) Ur Specific [place] 1.026 (1.001-1.035) Urine Protein 1+ H (Negative) Urine Glucose (UA) Negative (Negative) Urine Ketones Negative (Negative) Urine Blood Negative (Negative) Urine Nitrite Negative (Negative) Urine Bilirubin Negative (Negative) Urine Urobilinogen 3.0 (<2.0) mg/dL Ur Leukocyte Esterase Negative (Negative) Urine RBC 3 (0-5) /hpf Urine WBC 1 (0-5) /hpf Ur Squamous Epith Cells 1 (0-4) /hpf Hyaline Casts 3 H (0-2) /lpf Urine Mucus Occasional H (None) /hpf Disposition Clinical Impression: Pneumonia, COPD (chronic obstructive pulmonary disease) Disposition: ADMITTED IP TO THIS HOSP Condition: Fair Is patient prescribed a controlled substance at d/c from ED?: No Referrals: Dali Akins DO [Primary Care Provider] - 1-2 days
[2022-09-01 17:27] LABS: Basophils % (A) 0 %; Eosinophils % (A) 0 %; HCT 41.5 % (34.0-46.0); HGB 13.5 gm/dL (11.4-16.0); Lymphocytes # (A) 1.1 k/uL (1.0-4.8); Lymphocytes % (A) 6 %; MCH 27.9 pg (25.0-35.0); MCHC 32.4 g/dL (31.0-37.0); MCV 86.1 fL (80.0-100.0); Mean Platelet Volume 7.9; Monocytes # (A) 0.8 k/uL (0-1.0); Monocytes % (A) 4 %; Neutrophils # (A) 17.2 k/uL (1.3-7.7); Neutrophils % (A) 89 %; Platelet Count 281 k/uL (150-450); RBC 4.82 m/uL (3.80-5.40); RDW 14.9 % (11.5-15.5); WBC 19.2 k/uL (3.8-10.6)
[2022-09-01 17:38] LABS: Albumin 3.4 g/dL (3.5-5.0); Calcium 8.5 mg/dL (8.4-10.2); Magnesium 1.7 mg/dL (1.6-2.3); Potassium 4.3 mmol/L (3.5-5.1); Total Bilirubin 0.7 mg/dL (0.2-1.3); Total Protein 5.8 g/dL (6.3-8.2)
[2022-09-01 17:41] LABS: Appearance,Urine Clear (Clear); Bilirubin,Urine Negative (Negative); Blood,Urine Negative (Negative); Color,Urine Yellow; Glucose,Urine (UA) Negative (Negative); Hyaline Casts,Urine 3 /lpf (0-2); Ketones,Urine Negative (Negative); Leukocyte Esterase,Urine Negative (Negative); Mucus,Urine Occasional /hpf; Nitrite,Urine Negative (Negative); PH, Urine 5.5 (5.0-8.0); Protein,Urine 1+ (Negative); RBC,Urine 3 /hpf (0-5); Specific Gravity,Urine 1.026 (1.001-1.035); Squamous Epithelial Cell,Urine 1 /hpf (0-4); WBC,Urine 1 /hpf (0-5)
[2022-09-01 17:45] LABS: INR 0.9 (<1.2); Partial Thromboplastin Time 23.7 sec (22.0-30.0); Prothrombin Time 10.1 sec (9.0-12.0)
--- NOTE | 2022-09-01 19:35 | CT ---
EXAMINATION TYPE: CT chest angio for PE CT DLP: 189.3 mGycm, Automated exposure control for dose reduction was used. DATE OF EXAM: 09/01/2022 6:55 PM COMPARISON: Chest radiograph 09/01/2022. CLINICAL INDICATION:Female, 86 years old with history of dyspnea; TECHNIQUE/CONTRAST: CTA scan of the thorax is performed with IV Contrast, patient injected with 67 mL of Isovue 370, pulm onary embolism protocol. MIP images are created and reviewed. FINDINGS: Pulmonary Artery: There is no evidence for a filling defect within the pulmonary vasculature to sugge st acute pulmonary embolism. The pulmonary artery is of normal size. Left pulmonary some wispy nonsp ecific low-attenuation which is favored represent mixing artifact series 702 image 103. There is prun ing of the main pulmonary arteries. Lungs/Pleura: There is right lower lobe posterior consolidation changes with air bronchograms. Additi onally there is moderate centrilobular emphysema changes. There is no evidence of pleural effusion or pneumothorax. No additional opacities are seen in the right middle lobe to lesser extent. Airway: Large airways are patent. Heart: The heart is within normal limits for size there is mitral valve annular calcifications aortic valve leaflet calcifications and mild to moderate coronary artery atherosclerotic calcifications. Tr villa pericardial effusion. Vasculature: No evidence of aortic aneurysm. Atherosclerosis of the arterial vasculature. Mediastinum: No gross evidence of adenopathy. Musculoskeletal: No acute osseous abnormalities, multilevel disc degeneration changes throughout the spine. Soft Tissues: Unremarkable. Lower neck: No significant findings. Upper Abdomen: The gallbladder surgically absent. Right renal cysts. Scattered clonic diverticula. As seen within the visualized colon. IMPRESSION: 1. No evidence of pulmonary embolism. 2. Right lower lobe consolidation concerning for pneumonia. 3. Moderate emphysema changes. 4. Pulmonary hypertension suggested.
[2022-09-01] MEDS ORDERED: AZITHROMYCIN 500 MG TAB PO STA (20:03)
[2022-09-01] MEDS ORDERED: PNEUMONIA PROTOCOL UTILIZED 1 EACH MISC PO PRN (20:15)
[2022-09-01] MEDS ORDERED: ALBUTEROL NEBULIZED 2.5 MG/3 ML INHALATION PRN (20:15)
[2022-09-01] MEDS: SODIUM CHLORIDE 0.9% 1,000 ML IV SCH (21:57)
[2022-09-01] MEDS ORDERED: ONDANSETRON 4 MG/2 ML VIAL IVP PRN (22:54)
[2022-09-01] MEDS: ATORVASTATIN 10 MG TAB PO SCH (23:03)
[2022-09-01] MEDS: PIPERACILLIN-TAZOBACTAM 3.375 GM in SODIUM CHLORIDE 0.9% 100 ML IVPB SCH (23:03)
[2022-09-02] MEDS: IPRATROPIUM-ALBUTEROL 3 ML NEB INHALATION SCH ×4 (07:50→20:51)
--- NOTE | 2022-09-02 08:18 | P.CNPUL ---
History of Present Illness Consult date: 09/02/22 Requesting physician: Rosalind Tan Reason for consult: dyspnea, cough, COPD, hypoxemia, pneumonia, abnormal CXR/CT Chief complaint: Shortness of breath. History of present illness: Pulmonary consult dated 09/02/2022. 86-year-old female who came to the emergency department on September 01, complain ing of shortness of breath, cough, and had an abnormal chest x-ray and CAT scan which revealed a pneumonia in the right lower lobe. This a patient was here in July, for similar complaints, but, at that time, we were not consulted. The patient states that she was discharged, and never really improved. The patient has a history of gastroesophageal reflux disease, hyperlipidemia, and hypertension. And also has a history of lung cancer, involving the left lung. She apparently received stereotactic body radiotherapy, 7 treatments, for her lung cancer. She did not require any surgery, or chemotherapy. The patient has a history of heavy tobacco use, for about 40 years a so. She quit many years back. She is originally from [place]. White count 19.2, hemoglobin hematocrit and platelet count all normal. D-dimer 1.61. Sodium 135, potassium 4.3, chlorides 97, CO2 24, anion gap 14, BUN 26, creatinine 0.97. N-terminal proBNP was 2360. Urine was essentially negative. Chest x-ray was reported as normal. Computed tomography scan shows a infiltrate, and the posterior aspect of the right lower lobe. Review of Systems REVIEW OF SYSTEMS: CONSTITUTIONAL: [Negative.] NEUROLOGIC: [ Negative.] HEENT: [ Negative.] CARDIAC: [Negative.] PULMONARY: Shortness of breath, cough, chest congestion, and phlegm production. GI: [Negative.] : [Negative.] RHEUMATOLOGIC: [ Negative.] IMMUNOLOGIC: [ Negative.] ENDOCRINE: [Negative. 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, rt hip replacemnt - Past Anesthesia/Blood Transfusion Reactions: No Reported Reaction Past Psychological History: No Psychological Hx Reported Smoking Status: Former smoker Past Alcohol Use History: None Reported Past Drug Use History: None Reported - Past Family History Family Family Medical History: Coronary Artery Disease (CAD) Medications and Allergies Home Medications Medication Instructions Recorded Confirmed Type amLODIPine [Norvasc] 5 mg PO DAILY 07/20/19 09/01/22 History Simvastatin [Zocor] 20 mg PO HS 11/03/20 09/01/22 History Omeprazole 20 mg PO DAILY 08/18/22 09/01/22 History Ondansetron Odt [Zofran ODT] 4 mg PO Q8HR PRN 08/18/22 09/01/22 History predniSONE See Taper PO DIRECTED 12 Days 08/21/22 09/01/22 Rx #30 tab Albuterol Inhaler [Ventolin Hfa 2 puff INHALATION RT-Q4H PRN 09/01/22 09/01/22 History Inhaler] Budesonide-Formot 160-4.5 Mcg 2 puff INHALATION RT-BID 09/01/22 09/01/22 History [Symbicort 160-4.5 Mcg Inhaler] Allergies Allergy/AdvReac Type Severity Reaction Status Date / Time aspirin AdvReac Nausea & Verified 09/01/22 17:44 Vomiting Physical Exam Osteopathic Statement: *. No significant issues noted on an osteopathic structural exam other than those noted in the History and Physical/Consult. Vitals: Vital Signs Temp Pulse Pulse Resp BP BP Pulse Ox 09/02/22 08:07 88 09/02/22 07:50 84 09/02/22 02:58 98.4 F 74 16 101/55 94 L 09/01/22 22:56 98.9 F 89 17 100/53 98 09/01/22 22:17 85 18 130/68 95 09/01/22 20:00 85 20 135/85 96 09/01/22 18:00 98.5 F 89 20 148/68 95 09/01/22 17:56 84 18 09/01/22 17:49 88 20 09/01/22 17:28 85 16 108/78 95 09/01/22 15:19 97.5 F L 84 16 103/63 92 L Intake and Output 09/01/22 09/02/22 09/02/22 22:59 06:59 14:59 Other: Voiding Method Toilet # Voids 0 1 Weight 50.802 kg No acute distress, oriented 3. No obvious respiratory distress. Currently on room air. Her cough is wet congested. HEENT examination is grossly unremarkable. Neck supple. Full range of motion. No adenopathy thyromegaly or neck vein distention. Cardiovascular examination reveals regular rhythm rate. S1-S2 normal. No S3 or S4. No discernible murmur noted. Heart rate 88 bpm. Lungs reveal bilateral inspiratory and expiratory rhonchi and congestion. Breath sounds equal. No wheezes. No crackles. Saturations 94% on room air. Abdomen soft bowel sounds are heard. No masses or tenderness. Extremities are intact. No cyanosis clubbing or edema. Skin is without rash or lesion. Neurologic examination is brief but nonfocal. Results - Laboratory Findings CBC and BMP: 09/01/22 17:11 09/01/22 17:11 PT/INR, D-dimer PT 10.1 sec (9.0-12.0) 09/01/22 17:11 INR 0.9 (<1.2) 09/01/22 17:11 D-Dimer 1.61 mg/L FEU (<0.60) H 09/01/22 17:11 Abnormal lab findings: Abnormal Labs 09/01/22 09/01/22 09/01/22 17:11 17:11 17:11 WBC 19.2 H Neutrophils # 17.2 H D-Dimer 1.61 H Sodium 135 L Chloride 97 L BUN 26 H Glucose 103 H ALT 50 H Total Protein 5.8 L Albumin 3.4 L Urine Protein Hyaline Casts Urine Mucus 09/01/22 17:28 WBC Neutrophils # D-Dimer Sodium Chloride BUN Glucose ALT Total Protein Albumin Urine Protein 1+ H Hyaline Casts 3 H Urine Mucus Occasional H - Diagnostic Findings Chest x-ray: image reviewed CT scan - chest: image reviewed Assessment and Plan Assessment: COPD exacerbation, complicated by right lower lobe pneumonia. Recent admission, July 2022, with a similar episode. History of lung cancer, left lung, status post SBRT. Previous history of heavy tobacco use. History of hypertension. History of hyperlipidemia. History of gastroesophageal reflux disease. Plan: Plan dated 09/02/2022. The patient will stay on Zosyn. We'll make sure she gets updrafts with albuterol sulfate and ipratropium bromide, 4 times a day and when necessary. The patient will also get Pulmicort 1 mg, mixed with formoterol, 20 g, twice a day. The patient will also get Solu-Medrol, 40 mg IV push every 6 hours. A pro-calcitonin level has been ordered. Additional recommendations and suggestions are forthcoming. We'll continue to follow, and make recommendations along the way. Time with Patient: Greater than 30
[2022-09-02] MEDS: PIPERACILLIN-TAZOBACTAM 3.375 GM in SODIUM CHLORIDE 0.9% 100 ML IVPB SCH ×2 (09:35→16:54)
[2022-09-02] MEDS: BUDESONIDE 1 MG/2 ML NEBU INHALATION SCH ×2 (10:33→20:51)
[2022-09-02] MEDS: FORMOTEROL FUMARATE 20 MCG/2 ML NEBU INHALATION SCH ×2 (10:34→20:51)
[2022-09-02 10:42] LABS: Basophils % (A) 0 %; Eosinophils # (A) 0.2 k/uL (0-0.7); Eosinophils % (A) 1 %; HCT 38.3 % (34.0-46.0); HGB 11.9 gm/dL (11.4-16.0); Hypochromasia Slight; Lymphocytes # (A) 0.9 k/uL (1.0-4.8); Lymphocytes % (A) 7 %; MCH 27.4 pg (25.0-35.0); MCHC 31.1 g/dL (31.0-37.0); MCV 87.9 fL (80.0-100.0); Mean Platelet Volume 7.9; Monocytes # (A) 0.6 k/uL (0-1.0); Monocytes % (A) 4 %; Neutrophils # (A) 12.1 k/uL (1.3-7.7); Neutrophils % (A) 87 %; Platelet Count 207 k/uL (150-450); RBC 4.35 m/uL (3.80-5.40); RDW 14.8 % (11.5-15.5); WBC 13.8 k/uL (3.8-10.6)
--- NOTE | 2022-09-02 11:08 | P.HPIM ---
History of Present Illness H&P Date: 09/02/22 History of present illness; Patient is a 86-year-old lady with past medical history significant for COPD, hypertension, GERD who presented to the ER because of worsening shortness of breath. Patient was only recently discharged from the hospital in July after being admitted for COPD exacerbation. She stated that she was normal for a week but started having shortness of breath on exertion associated with cough. Cough was productive. Patient denied any fever or chills. Denies any chest pain. Because of this patient came to the ER of [facility]. Initial lab work showed White count 19.2, hemoglobin hematocrit and platelet count all normal. D-dimer 1.61. Sodium 135, potassium 4.3, chlorides 97, CO2 24, anion gap 14, BUN 26, creatinine 0.97. N-terminal proBNP was 2360. Urine was essentially negative. Chest x-ray was reported as normal. CT chest showed no evidence of PE but showed right lower lobe consolidation concerning for pneumoni a. Patient was started on antibiotics and was admitted to the hospitalist service. REVIEW OF SYSTEMS: CONSTITUTIONAL: No fever, no malaise, no fatigue. HEENT: No recent visual problems or hearing problems. Denied any sore throat. CARDIOVASCULAR: No chest pain, orthopnea, PND, no palpitations, no syncope. PULMONARY: Complaining of shortness of breath on exertion. Complaining of cough. GASTROINTESTINAL: No diarrhea, no nausea, no vomiting, no abdominal pain. NEUROLOGICAL: No headaches, no weakness, no numbness. HEMATOLOGICAL: Denies any bleeding or petechiae. GENITOURINARY: Denies any burning micturition, frequency, or urgency. MUSCULOSKELETAL/RHEUMATOLOGICAL: Denies any joint pain, swelling, or any muscle pain. ENDOCRINE: Denies any polyuria or polydipsia. The rest of the 14-point review of systems is negative. PHYSICAL EXAMINATION: GENERAL: The patient is alert and oriented x3, not in any acute distress. Well developed, well nourished. HEENT: Pupils are round and equally reacting to light. EOMI. No scleral icterus. No conjunctival pallor. Normocephalic, atraumatic. No pharyngeal erythema. No thyromegaly. CARDIOVASCULAR: S1 and S2 present. No murmurs, rubs, or gallops. PULMONARY: Diminished breath sounds at bases bilaterally, no wheezing or crackles. ABDOMEN: Soft, nontender, nondistended, normoactive bowel sounds. No palpable organomegaly. MUSCULOSKELETAL: No joint swelling or deformity. EXTREMITIES: No cyanosis, clubbing, or pedal edema. NEUROLOGICAL: Gross neurological examination did not reveal any focal deficits. SKIN: No rashes. Assessment and plan Acute COPD exacerbation Bacterial pneumonia History of lung cancer, left lung, status post SBRT. Previous history of heavy tobacco use. History of hypertension. History of hyperlipidemia. History of gastroesophageal reflux disease. Plan; Monitor vital signs Monitor CBC Ordered sputum culture Ordered blood cultures Continue IV Zosyn and azithromycin Check procal levels Continue IV Solu-Medrol continue breathing treatments Pulmonology consulted CODE STATUS discussed with patient she wants to be DO NOT RESUSCITATE limited DVT prophylaxis: SCDs Past Medical History Past Medical History: GERD/Reflux, Hyperlipidemia, Hypertension Additional Past Medical History / Comment(s): lung ca History of Any Multi-Drug Resistant Organisms: None Reported Past Surgical History: Cholecystectomy, Tonsillectomy Additional Past Surgical History / Comment(s): stomach, 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, rt hip replacemnt - Past Anesthesia/Blood Transfusion Reactions: No Reported Reaction Past Psychological History: No Psychological Hx Reported Smoking Status: Former smoker Past Alcohol Use History: None Reported Past Drug Use History: None Reported - Past Family History Family Family Medical History: Coronary Artery Disease (CAD) Medications and Allergies Home Medications Medication Instructions Recorded Confirmed Type amLODIPine [Norvasc] 5 mg PO DAILY 07/20/19 09/01/22 History Simvastatin [Zocor] 20 mg PO HS 11/03/20 09/01/22 History Omeprazole 20 mg PO DAILY 08/18/22 09/01/22 History Ondansetron Odt [Zofran ODT] 4 mg PO Q8HR PRN 08/18/22 09/01/22 History predniSONE See Taper PO DIRECTED 12 Days 08/21/22 09/01/22 Rx #30 tab Albuterol Inhaler [Ventolin Hfa 2 puff INHALATION RT-Q4H PRN 09/01/22 09/01/22 History Inhaler] Budesonide-Formot 160-4.5 Mcg 2 puff INHALATION RT-BID 09/01/22 09/01/22 History [Symbicort 160-4.5 Mcg Inhaler] Allergies Allergy/AdvReac Type Severity Reaction Status Date / Time aspirin AdvReac Nausea & Verified 09/01/22 17:44 Vomiting Physical Exam Vitals: Vital Signs Temp Pulse Pulse Resp BP BP Pulse Ox 09/02/22 08:40 98.0 F 87 18 107/64 93 L 09/02/22 08:07 88 09/02/22 07:50 84 09/02/22 02:58 98.4 F 74 16 101/55 94 L 09/01/22 22:56 98.9 F 89 17 100/53 98 09/01/22 22:17 85 18 130/68 95 09/01/22 20:00 85 20 135/85 96 09/01/22 18:00 98.5 F 89 20 148/68 95 09/01/22 17:56 84 18 09/01/22 17:49 88 20 09/01/22 17:28 85 16 108/78 95 09/01/22 15:19 97.5 F L 84 16 103/63 92 L Intake and Output 09/01/22 09/02/22 09/02/22 22:59 06:59 14:59 Intake Total 118 Balance 118 Intake: Oral 118 Other: Voiding Method Toilet # Voids 0 1 Weight 50.802 kg Results CBC & Chem 7: 09/02/22 10:30 09/01/22 17:11 Labs: Abnormal Lab Results - Last 24 Hours (Table) 09/01/22 09/01/22 09/01/22 Range/Units 17:11 17:11 17:11 WBC 19.2 H (3.8-10.6) k/uL Neutrophils # 17.2 H (1.3-7.7) k/uL Lymphocytes # (1.0-4.8) k/uL D-Dimer 1.61 H (<0.60) mg/L FEU Sodium 135 L (137-145) mmol/L Chloride 97 L (98-107) mmol/L BUN 26 H (7-17) mg/dL Glucose 103 H (74-99) mg/dL ALT 50 H (4-34) U/L Total Protein 5.8 L (6.3-8.2) g/dL Albumin 3.4 L (3.5-5.0) g/dL Urine Protein (Negative) Hyaline Casts (0-2) /lpf Urine Mucus (None) /hpf 10/05/22 10/06/22 Range/Units 17:28 10:30 WBC 13.8 H (3.8-10.6) k/uL Neutrophils # 12.1 H (1.3-7.7) k/uL Lymphocytes # 0.9 L (1.0-4.8) k/uL D-Dimer (<0.60) mg/L FEU Sodium (137-145) mmol/L Chloride (98-107) mmol/L BUN (7-17) mg/dL Glucose (74-99) mg/dL ALT (4-34) U/L Total Protein (6.3-8.2) g/dL Albumin (3.5-5.0) g/dL Urine Protein 1+ H (Negative) Hyaline Casts 3 H (0-2) /lpf Urine Mucus Occasional H (None) /hpf
[2022-09-02] MEDS: methylPREDNISolone SOD SUCCI 40 MG/ML 1 ML VIAL IV SCH ×2 (12:10→17:48)
[2022-09-02] MEDS: amLODIPine 5 MG TAB PO SCH (15:27)
--- NOTE | 2022-09-02 18:00 | XR ---
EXAMINATION TYPE: XR ankle limited LT DATE OF EXAM: 09/02/2022 COMPARISON: NONE HISTORY: Ankle pain TECHNIQUE: 2 views FINDINGS: There is osteopenia. I see no fracture nor dislocation. Talus is intact. Ankle mortise is a natomic. There is some vascular calcification. IMPRESSION: No acute abnormality of the left ankle.
[2022-09-02] MEDS ORDERED: AZITHROMYCIN 500 MG TAB PO SCH (21:00)
[2022-09-02] MEDS: ATORVASTATIN 10 MG TAB PO SCH (21:22)
[2022-09-02] MEDS: SODIUM CHLORIDE 0.9% 1,000 ML IV SCH (21:53)
[2022-09-03] MEDS: methylPREDNISolone SOD SUCCI 40 MG/ML 1 ML VIAL IV SCH ×5 (00:07→20:13)
[2022-09-03] MEDS: PIPERACILLIN-TAZOBACTAM 3.375 GM in SODIUM CHLORIDE 0.9% 100 ML IVPB SCH ×4 (00:07→23:27)
[2022-09-03] MEDS: BUDESONIDE 1 MG/2 ML NEBU INHALATION SCH ×2 (07:53→19:08)
[2022-09-03] MEDS: IPRATROPIUM-ALBUTEROL 3 ML NEB INHALATION SCH ×4 (07:53→19:08)
[2022-09-03] MEDS: FORMOTEROL FUMARATE 20 MCG/2 ML NEBU INHALATION SCH ×2 (07:53→19:08)
[2022-09-03 08:51] LABS: Basophils # (A) 0.01 X 10*3/uL (0.00-0.10); Basophils % (A) 0.2 %; Eosinophils # (A) 0 X 10*3/uL (0.04-0.35); Eosinophils % (A) 0 %; HCT 33.1 % (37.2-46.3); HGB 10.7 g/dL (12.0-15.0); Immature Grans, Automated 0.7 %; Lymphocytes # (A) 0.34 X 10*3/uL (0.90-5.00); Lymphocytes % (A) 5.7 %; MCH 26.9 pg (27.0-32.0); MCHC 32.3 g/dL (32.0-37.0); MCV 83.2 fL (80.0-97.0); Mean Platelet Volume 10.6 fL (9.5-12.2); Monocytes # (A) 0.11 X 10*3/uL (0.20-1.00); Monocytes % (A) 1.8 %; NRBC Per 100 WBC 0 /100 WBCS (0.0-0.0); Neutrophils # (A) 5.46 X 10*3/uL (1.80-7.70); Neutrophils % (A) 91.6 %; Platelet Count 247 X 10*3/uL (140-440); RBC 3.98 X 10*6/uL (4.10-5.20); RDW 16.3 % (11.5-14.5); WBC 5.96 X 10*3/uL (4.50-10.00)
[2022-09-03] MEDS: amLODIPine 5 MG TAB PO SCH (08:51)
[2022-09-03] MEDS: PANTOPRAZOLE 40 MG TABLET PO SCH (08:53)
[2022-09-03 09:43] LABS: African American GFR (CKD) 53.4 (60.0-200.0); Albumin/Globulin Ratio 1.58 (1.60-3.17); Anion Gap 18.4 mmol/L (10.00-18.00); BUN/Creat Ratio 18.45 Ratio (12.00-20.00); Blood Urea Nitrogen 20.3 mg/dL (9.0-27.0); Carbon Dioxide 19.6 mmol/L (20.0-27.5); Globulin 1.9 g/dL (1.6-3.3); Non-African American GFR(CKD) 46.1 (60.0-200.0); Potassium 4.2 mmol/L (3.5-5.5); Total Bilirubin 0.4 mg/dL (0.30-1.20); Total Protein 4.9 g/dL (6.2-8.2)
[2022-09-03 09:55] LABS: African American GFR (CKD) 66.2 (60.0-200.0); Albumin 2.9 g/dL (3.8-4.9); Albumin/Globulin Ratio 1.54 (1.60-3.17); Anion Gap 12.2 mmol/L (10.00-18.00); BUN/Creat Ratio 19.87 Ratio (12.00-20.00); Blood Urea Nitrogen 18.3 mg/dL (9.0-27.0); Calcium 8.2 mg/dL (8.7-10.3); Carbon Dioxide 23.8 mmol/L (20.0-27.5); Globulin 1.9 g/dL (1.6-3.3); Non-African American GFR(CKD) 57.1 (60.0-200.0); Potassium 4.3 mmol/L (3.5-5.5); Total Bilirubin 0.3 mg/dL (0.30-1.20); Total Protein 4.8 g/dL (6.2-8.2)
--- NOTE | 2022-09-03 11:33 | P.PN ---
Subjective Progress Note Date: 09/03/22 86-year-old female who came to the emergency department on September 01, complaining of shortness of breath, cough, and had an abnormal chest x-ray and CAT scan which revealed a pneumonia in the right lower lobe. This a patient was here in July, for similar complaints, but, at that time, we were not co nsulted. The patient states that she was discharged, and never really improved. The patient has a history of gastroesophageal reflux disease, hyperlipidemia, and hypertension. And also has a history of lung cancer, involving the left lung. She apparently received stereotactic body radiotherapy, 7 treatments, for her lung cancer. She did not require any surgery, or chemotherapy. The patient has a history of heavy tobacco use, for about 40 years a so. She quit many years back. She is originally from [place]. White count 19.2, hemoglobin hematocrit and platelet count all normal. D-dimer 1.61. Sodium 135, potassium 4.3, chlorides 97, CO2 24, anion gap 14, BUN 26, creatinine 0.97. N-terminal proBNP was 2360. Urine was essentially negative. Chest x-ray was reported as normal. Computed tomography scan shows a infiltrate, and the posterior aspect of the right lower lobe. The patient is seen today 09/03/2022 in follow-up on the regular medical floor. She is currently sitting up in bed. Awake and alert in no acute distress. She is maintaining good O2 saturations in the 90s on room air. She has 0.9 normal saline 20 miles per hour. She is still somewhat bronchospastic and wheezy. Sputum culture pending. Blood culture reveals no growth. White count 5.9. Hemoglobin 10.7. Sodium 138. Potassium 4.3. BUN 18. Creatinine 0.9. AST 14. ALT 31. ProCalcitonin 0.18. She is continued on DuoNeb inhalations, Pulmicort and Perforomist inhalations, IV Cymetra. Empiric antibiotics in the form of Zosyn. Objective - Vital Signs Vital signs: Vital Signs Temp 97.7 F 09/03/22 07:00 Pulse 76 09/03/22 08:20 Resp 16 09/03/22 07:00 BP 116/70 09/03/22 07:00 Pulse Ox 96 09/03/22 07:00 FiO2 Intake & Output 09/02/22 09/03/22 09/03/22 18:59 06:59 18:59 Intake Total 498 240 Balance 498 240 Intake: Intake, IV Titration 260 Amount Piperacillin-Tazobactam 3 100 .375 gm In Sodium Chloride 0.9% 100 ml @ 25 mls/hr IVPB Q8HR PREMA Rx# :[id number] Sodium Chloride 0.9% 1, 160 000 ml @ 20 mls/hr IV . Q24H PREMA Rx#:[id number] Oral 238 240 Other: Voiding Method Toilet # Voids 2 - Exam GENERAL EXAM: Alert, very pleasant 86 female on room air, comfortable in no apparent distress. HEAD: Normocephalic. EYES: Normal reaction of pupils, equal size. NOSE: Clear with pink turbinates. THROAT: No erythema or exudates. NECK: No masses, no JVD. CHEST: No chest wall deformity. LUNGS: Equal air entry with no crackles, wheeze, rhonchi or dullness. CVS: S1 and S2 normal with bilateral end expiratory wheeze, few scattered rhonchi. ABDOMEN: No hepatosplenomegaly, normal bowel sounds, no guarding or rigidity. SPINE: No scoliosis or deformity SKIN: No rashes CENTRAL NERVOUS SYSTEM: No focal deficits, tone is normal in all 4 extremities. EXTREMITIES: There is no peripheral edema. No clubbing, no cyanosis. Peripheral pulses are intact. - Labs CBC & Chem 7: 09/03/22 04:34 09/03/22 04:34 Labs: Abnormal Lab Results - Last 24 Hours (Table) 09/02/22 09/03/22 09/03/22 Range/Units 07:35 04:34 04:34 RBC 3.98 L (4.10-5.20) X 10*6/uL Hgb 10.7 L (12.0-15.0) g/dL Hct 33.1 L (37.2-46.3) % MCH 26.9 L (27.0-32.0) pg RDW 16.3 H (11.5-14.5) % Lymphocytes # 0.34 L (0.90-5.00) X 10*3/uL Monocytes # 0.11 L (0.20-1.00) X 10*3/uL Eosinophils # 0 L (0.04-0.35) X 10*3/uL Carbon Dioxide 19.6 L (20.0-27.5) mmol/L Anion Gap 18.40 H (10.00-18.00) mmol/L Est GFR (CKD-EPI)AfAm 53.4 L (60.0-200.0) Est GFR (CKD-EPI)NonAf 46.1 L 57.1 L (60.0-200.0) Glucose 154 H (70-110) mg/dL Calcium 8.0 L 8.2 L (8.7-10.3) mg/dL Total Protein 4.9 L 4.8 L (6.2-8.2) g/dL Albumin 3.0 L 2.9 L (3.8-4.9) g/dL Albumin/Globulin Ratio 1.58 L 1.54 L (1.60-3.17) g/dL Microbiology - Last 24 Hours (Table) 09/02/22 20:57 Sputum Culture - Preliminary Sputum 09/01/22 17:25 Blood Culture - Preliminary Blood No Growth after 24 hours 09/01/22 17:20 Blood Culture - Preliminary Blood No Growth after 24 hours Assessment and Plan Assessment: COPD exacerbation, complicated by right lower lobe pneumonia. Recent admission, July 2022, with a similar episode. History of lung cancer, left lung, status post SBRT. Previous history of heavy tobacco use. History of hypertension. History of hyperlipidemia. History of gastroesophageal reflux disease. Plan: The patient was seen and evaluated Improved but not back to her baseline Continue bronchodilators, IV Solu medrol, Zosyn Increase her activity as tolerated We will continue to follow I have personally seen and examined the patient, performed the documentation and the assessment and plan as written. Number of minutes spent on the visit: 10.
--- NOTE | 2022-09-03 12:31 | P.PN ---
Subjective Progress Note Date: 09/03/22 Patient is a 86-year-old lady with past medical history significant for COPD, hypertension, GERD who presented to the ER because of worsening shortness of breath. Patient was only recently discharged from the hospital in July after being admitted for COPD exacerbation. She stated that she was normal for a week but started having shortness of breath on exertion associated with cough. Cough was productive. Patient denied any fever or chills. Denies any chest pain. Because of this patient came to the ER of [facility]. Initial lab work showed White count 19.2, hemoglobin hematocrit and platelet count all normal. D-dimer 1.61. Sodium 135, potassium 4.3, chlorides 97, CO2 24, anion gap 14, BUN 26, creatinine 0.97. N-terminal proBNP was 2360. Urine was essentially negative. Chest x-ray was reported as normal. CT chest showed no evidence of PE but showed right lower lobe consolidation concerning for pneumonia. Patient was started on antibiotics and was admitted to the hospitalist service. 09/03/22 patient seen and examined. Patient not requiring supplemental oxygen. States her breathing has improved. Cough is improving. Denies any swelling of feet. Vital signs stable. Case discussed with nursing staff REVIEW OF SYSTEMS: CONSTITUTIONAL: No fever, no malaise, no fatigue. CARDIOVASCULAR: No chest pain, orthopnea, PND, no palpitations, no syncope. PULMONARY: No cough, no hemoptysis. GASTROINTESTINAL: No diarrhea, no nausea, no vomiting, no abdominal pain. PHYSICAL EXAMINATION: GENERAL: The patient is alert and oriented x3, not in any acute distress. Well developed, well nourished. HEENT: Pupils are round and equally reacting to light. EOMI. No scleral icterus. No conjunctival pallor. Normocephalic, atraumatic. No pharyngeal erythema. No thyromegaly. CARDIOVASCULAR: S1 and S2 present. No murmurs, rubs, or gallops. PULMONARY: Chest is clear to auscultation, no wheezing or crackles. ABDOMEN: Soft, nontender, nondistended, normoactive bowel sounds. No palpable organomegaly. MUSCULOSKELETAL: No joint swelling or deformity. EXTREMITIES: No cyanosis, clubbing, or pedal edema. NEUROLOGICAL: Gross neurological examination did not reveal any focal deficits. SKIN: No rashes. Assessment Acute COPD exacerbation Bacterial pneumonia History of lung cancer, left lung, status post SBRT. Previous history of heavy tobacco use. History of hypertension. History of hyperlipidemia. History of gastroesophageal reflux disease. Plan; Monitor vital signs Monitor CBC Ordered sputum culture Blood cultures continued to be negative Continue IV Zosyn Decreased IV Solu-Medrol to 40 mg every 8 procal levels are normal Continue IV Solu-Medrol continue breathing treatments Follow-up on pulmonary recommendations Objective - Vital Signs Vital signs: Vital Signs Temp 97.7 F 09/03/22 07:00 Pulse 88 09/03/22 11:47 Resp 16 09/03/22 07:00 BP 116/70 09/03/22 07:00 Pulse Ox 96 09/03/22 07:00 FiO2 Intake & Output 09/02/22 09/03/22 09/03/22 18:59 06:59 18:59 Intake Total 498 240 Balance 498 240 Intake: Intake, IV Titration 260 Amount Piperacillin-Tazobactam 3 100 .375 gm In Sodium Chloride 0.9% 100 ml @ 25 mls/hr IVPB Q8HR PREMA Rx# :[id number] Sodium Chloride 0.9% 1, 160 000 ml @ 20 mls/hr IV . Q24H PREMA Rx#:[id number] Oral 238 240 Other: Voiding Method Toilet # Voids 2 - Labs CBC & Chem 7: 09/03/22 04:34 09/03/22 04:34 Labs: Abnormal Lab Results - Last 24 Hours (Table) 09/02/22 09/03/22 09/03/22 Range/Units 07:35 04:34 04:34 RBC 3.98 L (4.10-5.20) X 10*6/uL Hgb 10.7 L (12.0-15.0) g/dL Hct 33.1 L (37.2-46.3) % MCH 26.9 L (27.0-32.0) pg RDW 16.3 H (11.5-14.5) % Lymphocytes # 0.34 L (0.90-5.00) X 10*3/uL Monocytes # 0.11 L (0.20-1.00) X 10*3/uL Eosinophils # 0 L (0.04-0.35) X 10*3/uL Carbon Dioxide 19.6 L (20.0-27.5) mmol/L Anion Gap 18.40 H (10.00-18.00) mmol/L Est GFR (CKD-EPI)AfAm 53.4 L (60.0-200.0) Est GFR (CKD-EPI)NonAf 46.1 L 57.1 L (60.0-200.0) Glucose 154 H (70-110) mg/dL Calcium 8.0 L 8.2 L (8.7-10.3) mg/dL Total Protein 4.9 L 4.8 L (6.2-8.2) g/dL Albumin 3.0 L 2.9 L (3.8-4.9) g/dL Albumin/Globulin Ratio 1.58 L 1.54 L (1.60-3.17) g/dL Microbiology - Last 24 Hours (Table) 09/02/22 20:57 Sputum Culture - Preliminary Sputum 09/01/22 17:25 Blood Culture - Preliminary Blood No Growth after 24 hours 09/01/22 17:20 Blood Culture - Preliminary Blood No Growth after 24 hours
[2022-09-03] MEDS: ATORVASTATIN 10 MG TAB PO SCH (20:13)
[2022-09-03] MEDS: SODIUM CHLORIDE 0.9% 1,000 ML IV SCH (20:19)
[2022-09-04] MEDS: methylPREDNISolone SOD SUCCI 40 MG/ML 1 ML VIAL IV SCH ×3 (05:05→20:49)
[2022-09-04] MEDS: BUDESONIDE 1 MG/2 ML NEBU INHALATION SCH ×2 (08:11→20:23)
[2022-09-04] MEDS: FORMOTEROL FUMARATE 20 MCG/2 ML NEBU INHALATION SCH ×2 (08:11→20:22)
[2022-09-04] MEDS: IPRATROPIUM-ALBUTEROL 3 ML NEB INHALATION SCH ×4 (08:11→20:22)
[2022-09-04] MEDS: PIPERACILLIN-TAZOBACTAM 3.375 GM in SODIUM CHLORIDE 0.9% 100 ML IVPB SCH ×2 (09:12→15:52)
[2022-09-04] MEDS: amLODIPine 5 MG TAB PO SCH (09:12)
[2022-09-04] MEDS: PANTOPRAZOLE 40 MG TABLET PO SCH (09:12)
--- NOTE | 2022-09-04 11:10 | P.PN ---
Subjective Progress Note Date: 09/04/22 86-year-old female who came to the emergency department on September 01, complaining of shortness of breath, cough, and had an abnormal chest x-ray and CAT scan which revealed a pneumonia in the right lower lobe. This a patient was here in July, for similar complaints, but, at that time, we were not co nsulted. The patient states that she was discharged, and never really improved. The patient has a history of gastroesophageal reflux disease, hyperlipidemia, and hypertension. And also has a history of lung cancer, involving the left lung. She apparently received stereotactic body radiotherapy, 7 treatments, for her lung cancer. She did not require any surgery, or chemotherapy. The patient has a history of heavy tobacco use, for about 40 years a so. She quit many years back. She is originally from [place]. White count 19.2, hemoglobin hematocrit and platelet count all normal. D-dimer 1.61. Sodium 135, potassium 4.3, chlorides 97, CO2 24, anion gap 14, BUN 26, creatinine 0.97. N-terminal proBNP was 2360. Urine was essentially negative. Chest x-ray was reported as normal. Computed tomography scan shows a infiltrate, and the posterior aspect of the right lower lobe. The patient is seen today 09/03/2022 in follow-up on the regular medical floor. She is currently sitting up in bed. Awake and alert in no acute distress. She is maintaining good O2 saturations in the 90s on room air. She has 0.9 normal saline 20 miles per hour. She is still somewhat bronchospastic and wheezy. Sputum culture pending. Blood culture reveals no growth. White count 5.9. Hemoglobin 10.7. Sodium 138. Potassium 4.3. BUN 18. Creatinine 0.9. AST 14. ALT 31. ProCalcitonin 0.18. She is continued on DuoNeb inhalations, Pulmicort and Perforomist inhalations, IV Cymetra. Empiric antibiotics in the form of Zosyn. The patient is seen today 09/04/2022 in follow-up on the regular medical floor. She is sitting up in bed. Awake and alert in no acute distress. Maintaining go od O2 saturations in the 90s on room air. She has normal saline 20 miles per hour. Her appetite is good. She still has a loose nonproductive cough. Blood culture reveals no growth. Sputum culture reveals no growth. No new labs today. She is continued on DuoNeb inhalations, Pulmicort and Perforomist inhalations, IV Solu-Medrol. Remains on antibiotics in the form of Zosyn. Lovenox for DVT prophylaxis. Objective - Vital Signs Vital signs: Vital Signs Temp 97.7 F 09/04/22 08:00 Pulse 94 09/04/22 08:27 Resp 16 09/04/22 08:00 BP 137/75 09/04/22 08:00 Pulse Ox 97 09/04/22 08:11 FiO2 Intake & Output 09/03/22 09/04/22 09/04/22 18:59 06:59 18:59 Intake Total 858 118 Balance 858 118 Intake: Intake, IV Titration 260 Amount Piperacillin-Tazobactam 3 100 .375 gm In Sodium Chloride 0.9% 100 ml @ 25 mls/hr IVPB Q8HR [facility] Rx# :[id number] Sodium Chloride 0.9% 1, 160 000 ml @ 20 mls/hr IV . Q24H [facility] Rx#:[id number] Oral 598 118 Other: # Voids 1 - Exam GENERAL EXAM: Alert, thin, very pleasant 86 female, on room air, comfortable in no apparent distress. HEAD: Normocephalic. EYES: Normal reaction of pupils, equal size. NOSE: Clear with pink turbinates. THROAT: No erythema or exudates. NECK: No masses, no JVD. CHEST: No chest wall deformity. LUNGS: Equal air entry with few scattered rhonchi. CVS: S1 and S2 normal with bilateral end expiratory wheeze, few scattered rhonchi. ABDOMEN: No hepatosplenomegaly, normal bowel sounds, no guarding or rigidity. SPINE: No scoliosis or deformity SKIN: No rashes CENTRAL NERVOUS SYSTEM: No focal deficits, tone is normal in all 4 extremities. EXTREMITIES: There is no peripheral edema. No clubbing, no cyanosis. Peripheral pulses are intact. - Labs CBC & Chem 7: 09/03/22 04:34 09/03/22 04:34 Labs: Microbiology - Last 24 Hours (Table) 09/01/22 17:25 Blood Culture - Preliminary Blood No Growth after 48 hours 09/01/22 17:20 Blood Culture - Preliminary Blood No Growth after 48 hours 09/02/22 20:57 Gram Stain - Preliminary Sputum Sputum Culture - Preliminary Assessment and Plan Assessment: COPD exacerbation, complicated by right lower lobe pneumonia. Procalcitonin 0.18. Remains on Zosyn. Recent admission, July 2022, with a similar episode. History of lung cancer, left lung, status post SBRT. Previous history of heavy tobacco use. History of hypertension. History of hyperlipidemia. History of gastroesophageal reflux disease. Plan: The patient was seen and evaluated Medications reviewed Improved but not back to her baseline Continue bronchodilators, IV Solu medrol, Zosyn Increase her activity as tolerated Probable discharge in the a.m. We will continue to follow I have personally seen and examined the patient, performed the documentation and the assessment and plan as written. Number of minutes spent on the visit: 10.
[2022-09-04] MEDS ORDERED: ENOXAPARIN 30 MG/0.3 ML SYRINGE SQ SCH (11:30)
[2022-09-04 11:45] LABS: HCT 36.8 % (37.2-46.3); HGB 11.5 g/dL (12.0-15.0); MCH 27.1 pg (27.0-32.0); MCHC 31.3 g/dL (32.0-37.0); MCV 86.6 fL (80.0-97.0); Mean Platelet Volume 10.6 fL (9.5-12.2); NRBC Per 100 WBC 0 /100 WBCS (0.0-0.0); Platelet Count 291 X 10*3/uL (140-440); RBC 4.25 X 10*6/uL (4.10-5.20); RDW 16.9 % (11.5-14.5); WBC 9.71 X 10*3/uL (4.50-10.00)
[2022-09-04 11:58] LABS: African American GFR (CKD) 68.1 (60.0-200.0); Anion Gap 13.6 mmol/L (10.00-18.00); BUN/Creat Ratio 18.89 Ratio (12.00-20.00); Calcium 8.3 mg/dL (8.7-10.3); Carbon Dioxide 23.4 mmol/L (20.0-27.5); Non-African American GFR(CKD) 58.7 (60.0-200.0); Potassium 4.5 mmol/L (3.5-5.5)
--- NOTE | 2022-09-04 19:07 | P.PN ---
Subjective Patient is a 86-year-old lady with past medical history significant for COPD, hypertension, GERD who presented to the ER because of worsening shortness of breath. Patient was only recently discharged from the hospital in July after being admitted for COPD exacerbation. She stated that she was normal for a week but started having shortness of breath on exertion associated with cough. Cough was productive. Patient denied any fever or chills. Denies any chest pain. Because of this patient came to the ER of [facility]. Initial lab work showed White count 19.2, hemoglobin hematocrit and platelet count all normal. D-dimer 1.61. Sodium 135, potassium 4.3, chlorides 97, CO2 24, anion gap 14, BUN 26, creatinine 0.97. N-terminal proBNP was 2360. Urine was essentially negative. Chest x-ray was reported as normal. CT chest showed no evidence of PE but showed right lower lobe consolidation concerning for pneumonia. Patient was started on antibiotics and was admitted to the hospitalist service. 09/03/22 patient seen and examined. Patient not requiring supplemental oxygen. States her breathing has improved. Cough is improving. Denies any swelling of feet. Vital signs stable. Case discussed with nursing staff 09/04/2022 This is a pleasant 86 years old female who was admitted with respiratory distress secondary to pneumonia and COPD exacerbation She had a CTA of the chest which was negative for pulmonary embolism but showing right lower lobe consolidation with moderate emphysema. Sputum culture is growing gram-negative bacilli Patient currently on IV Solu-Medrol and Zosyn WBC 5.9. Blood pressure is borderline but asymptomatic. Objective - Vital Signs Vital signs: Vital Signs Temp 97.7 F 09/04/22 08:00 Pulse 88 09/04/22 12:15 Resp 16 09/04/22 08:00 BP 137/75 09/04/22 08:00 Pulse Ox 97 09/04/22 08:11 FiO2 Intake & Output 09/03/22 09/04/22 09/04/22 18:59 06:59 18:59 Intake Total 858 118 Balance 858 118 Intake: Intake, IV Titration 260 Amount Piperacillin-Tazobactam 3 100 .375 gm In Sodium Chloride 0.9% 100 ml @ 25 mls/hr IVPB Q8HR [facility] Rx# :[id number] Sodium Chloride 0.9% 1, 160 000 ml @ 20 mls/hr IV . Q24H [facility] Rx#:[id number] Oral 598 118 Other: # Voids 1 - Exam GENERAL: The patient is alert and oriented x3, not in any acute distress. Well developed, well nourished. HEENT: Pupils are round and equally reacting to light. EOMI. No scleral icterus. No conjunctival pallor. Normocephalic, atraumatic. No pharyngeal erythema. No thyromegaly. CARDIOVASCULAR: S1 and S2 present. No murmurs, rubs, or gallops. -PULMONARY: Chest is clear to auscultation, bilateral scattered wheezing . No crackles. ABDOMEN: Soft, nontender, nondistended, normoactive bowel sounds. No palpable organomegaly. MUSCULOSKELETAL: No joint swelling or deformity. EXTREMITIES: No cyanosis, clubbing, or pedal edema. NEUROLOGICAL: Gross neurological examination did not reveal any focal deficits. SKIN: No rashes. no petechiae. - Labs CBC & Chem 7: 09/04/22 07:41 09/04/22 07:41 Labs: Abnormal Lab Results - Last 24 Hours (Table) 09/04/22 09/04/22 Range/Units 07:41 07:41 Hgb 11.5 L (12.0-15.0) g/dL Hct 36.8 L (37.2-46.3) % MCHC 31.3 L (32.0-37.0) g/dL RDW 16.9 H (11.5-14.5) % Est GFR (CKD-EPI)NonAf 58.7 L (60.0-200.0) Calcium 8.3 L (8.7-10.3) mg/dL Microbiology - Last 24 Hours (Table) 09/01/22 17:25 Blood Culture - Preliminary Blood No Growth after 48 hours 09/01/22 17:20 Blood Culture - Preliminary Blood No Growth after 48 hours 09/02/22 20:57 Gram Stain - Preliminary Sputum Sputum Culture - Preliminary Assessment and Plan Assessment: Acute COPD exacerbation LAD the lower lobe pneumonia History of lung cancer, left lung, status post SBRT. Previous history of heavy tobacco use. History of hypertension. History of hyperlipidemia. History of gastroesophageal reflux disease. Plan: Continue with IV Solu-Medrol Continue with [facility] team on the case Labs and medication were reviewed.. Continue same treatment. Continue with symptomatic treatment. Resume home medication. Monitor lytes and vitals. DVT and GI prophylaxis. Further recommendations as per clinical course of the patient DVT prophylaxis: Subcutaneous lovenox GI Prophylaxis: ppi
[2022-09-04] MEDS: ATORVASTATIN 10 MG TAB PO SCH (20:49)
[2022-09-04] MEDS: SODIUM CHLORIDE 0.9% 1,000 ML IV SCH (20:51)
[2022-09-05] MEDS: PIPERACILLIN-TAZOBACTAM 3.375 GM in SODIUM CHLORIDE 0.9% 100 ML IVPB SCH ×4 (00:04→23:13)
[2022-09-05] MEDS: methylPREDNISolone SOD SUCCI 40 MG/ML 1 ML VIAL IV SCH ×3 (05:56→20:22)
[2022-09-05] MEDS: IPRATROPIUM-ALBUTEROL 3 ML NEB INHALATION SCH ×4 (07:54→19:46)
[2022-09-05] MEDS: FORMOTEROL FUMARATE 20 MCG/2 ML NEBU INHALATION SCH ×2 (07:54→19:46)
[2022-09-05] MEDS: BUDESONIDE 1 MG/2 ML NEBU INHALATION SCH ×2 (07:54→19:46)
[2022-09-05] MEDS: ENOXAPARIN 40 MG/0.4 ML SYRINGE SQ SCH (08:21)
[2022-09-05] MEDS: PANTOPRAZOLE 40 MG TABLET PO SCH (08:22)
[2022-09-05] MEDS: amLODIPine 5 MG TAB PO SCH (08:22)
--- NOTE | 2022-09-05 08:26 | P.PN ---
Subjective Progress Note Date: 09/05/22 Principal diagnosis: 86-year-old female who came to the emergency department on September 01, complaining of shortness of breath, cough, and had an abnormal chest x-ray and CAT scan which revealed a pneumonia in the right lower lobe. This a patient was here in July, for similar complaints, but, at that time, we were not consulted. The patient states that she was discharged, and never really improved. The patient has a history of gastroesophageal reflux disease, hyperlipidemia, and hypertension. And also has a history of lung cancer, involving the left lung. She apparently received stereotactic body radiotherapy, 7 treatments, for her lung cancer. She did not require any surgery, or chemotherapy. The patient has a history of heavy tobacco use, for about 40 years a so. She quit many years back. She is originally from [place]. White count 19.2, hemoglobin hematocrit and platelet count all normal. D-dimer 1.61. Sodium 135, potassium 4.3, chlorides 97, CO2 24, anion gap 14, BUN 26, creatinine 0.97. N-terminal proBNP was 2360. Urine was essentially negative. Chest x-ray was reported as normal. Computed tomography scan shows a infiltrate, and the posterior aspect of the right lower lobe. The patient is seen today 09/03/2022 in follow-up on the regular medical floor. She is currently sitting up in bed. Awake and alert in no acute distress. She is maintaining good O2 saturations in the 90s on room air. She has 0.9 normal saline 20 miles per hour. She is still somewhat bronchospastic and wheezy. Sputum culture pending. Blood culture reveals no growth. White count 5.9. Hemoglobin 10.7. Sodium 138. Potassium 4.3. BUN 18. Creatinine 0.9. AST 14. ALT 31. ProCalcitonin 0.18. She is continued on DuoNeb inhalations, Pulmicort and Perforomist inhalations, IV Cymetra. Empiric antibiotics in the form of Zosyn. The patient is seen today 09/04/2022 in follow-up on the regular medical floor. She is sitting up in bed. Awake and alert in no acute distress. Maintaining good O2 saturations in the 90s on room air. She has normal saline 20 miles per hour. Her appetite is good. She still has a loose nonproductive cough. Blood culture reveals no growth. Sputum culture reveals no growth. No new labs today. She is continued on DuoNeb inhalations, Pulmicort and Perforomist inhalations, IV Solu-Medrol. Remains on antibiotics in the form of Zosyn. Lovenox for DVT prophylaxis. The patient was seen and examined this morning [id number] in follow-up on the regular medical floor. She is sitting up in bed in no acute distress. Maintaining oxygen saturations in the mid 90s on room air. States she feels pretty good although she did not get any sleep last night. He continues to have a loose nonproductive cough. Remains afebrile. Preliminary Gram stain from sputum culture obtained [id number] demonstrates few gram-negative bacilli, remains on IV Solu-Medrol and Zosyn. Continues on Duo-nebs, Pulmicort, Perforomist. No labs or x-rays ordered today. Patient is requesting to go home today. No other new concerns. Objective - Vital Signs Vital signs: Vital Signs Temp 97.6 F 09/05/22 01:38 Pulse 74 09/05/22 08:10 Resp 16 09/05/22 01:38 BP 113/60 09/05/22 01:38 Pulse Ox 94 L 09/05/22 01:38 FiO2 Intake & Output 09/04/22 09/05/22 09/05/22 18:59 06:59 18:59 Intake Total 594 Balance 594 Intake: Oral 594 Other: # Voids 1 2 - Exam GENERAL EXAM: Alert, thin, very pleasant 86 female, on room air, comfortable in no apparent distress. HEAD: Normocephalic. EYES: Normal reaction of pupils, equal size. NOSE: Clear with pink turbinates. THROAT: No erythema or exudates. NECK: No masses, no JVD. CHEST: No chest wall deformity. LUNGS: Equal air entry with few scattered rhonchi. CVS: S1 and S2 normal with bilateral end expiratory wheeze, few scattered rhonchi. ABDOMEN: No hepatosplenomegaly, normal bowel sounds, no guarding or rigidity. SPINE: No scoliosis or deformity SKIN: No rashes CENTRAL NERVOUS SYSTEM: No focal deficits, tone is normal in all 4 extremities. EXTREMITIES: There is no peripheral edema. No clubbing, no cyanosis. Peripheral pulses are intact. - Labs CBC & Chem 7: 09/04/22 07:41 09/04/22 07:41 Labs: Abnormal Lab Results - Last 24 Hours (Table) 09/04/22 09/04/22 Range/Units 07:41 07:41 Hgb 11.5 L (12.0-15.0) g/dL Hct 36.8 L (37.2-46.3) % MCHC 31.3 L (32.0-37.0) g/dL RDW 16.9 H (11.5-14.5) % Est GFR (CKD-EPI)NonAf 58.7 L (60.0-200.0) Calcium 8.3 L (8.7-10.3) mg/dL Microbiology - Last 24 Hours (Table) 09/01/22 17:25 Blood Culture - Preliminary Blood No Growth after 72 hours 09/01/22 17:20 Blood Culture - Preliminary Blood No Growth after 72 hours 09/02/22 20:57 Gram Stain - Preliminary Sputum Sputum Culture - Preliminary Gram Neg Bacilli Assessment and Plan Assessment: COPD exacerbation, complicated by right lower lobe pneumonia. Procalcitonin 0.18. Remains on Zosyn, IV Solu-Medrol. Recent admission, July 2022, with a similar episode. History of lung cancer, left lung, status post SBRT. Previous history of heavy tobacco use. History of hypertension. History of hyperlipidemia. History of gastroesophageal reflux disease. Plan: The patient was seen and evaluated Medications reviewed Improved Continue bronchodilators, IV Solu medrol, Zosyn Increase her activity as tolerated Can transition to oral steroids and antibiotics Okay to discharge from pulmonary standpoint I have personally seen and examined the patient, performed the documentation and the assessment and plan as written. Number of minutes spent on the visit: 10.
--- NOTE | 2022-09-05 15:25 | P.PN ---
Subjective Patient is a 86-year-old lady with past medical history significant for COPD, hypertension, GERD who presented to the ER because of worsening shortness of breath. Patient was only recently discharged from the hospital in July after being admitted for COPD exacerbation. She stated that she was normal for a week but started having shortness of breath on exertion associated with cough. Cough was productive. Patient denied any fever or chills. Denies any chest pain. Because of this patient came to the ER of [facility]. Initial lab work showed White count 19.2, hemoglobin hematocrit and platelet count all normal. D-dimer 1.61. Sodium 135, potassium 4.3, chlorides 97, CO2 24, anion gap 14, BUN 26, creatinine 0.97. N-terminal proBNP was 2360. Urine was essentially negative. Chest x-ray was reported as normal. CT chest showed no evidence of PE but showed right lower lobe consolidation concerning for pneumonia. Patient was started on antibiotics and was admitted to the hospitalist service. 09/03/22 patient seen and examined. Patient not requiring supplemental oxygen. States her breathing has improved. Cough is improving. Denies any swelling of feet. Vital signs stable. Case discussed with nursing staff 09/04/2022 This is a pleasant 86 years old female who was admitted with respiratory distress secondary to pneumonia and COPD exacerbation She had a CTA of the chest which was negative for pulmonary embolism but showing right lower lobe consolidation with moderate emphysema. Sputum culture is growing gram-negative bacilli Patient currently on IV Solu-Medrol and Zosyn WBC 5.9. Blood pressure is borderline but asymptomatic. 09/05/2022 I saw the patient this morning, she was improving with respiratory distress while lying in bed. Only mild tachypnea. No chest pain. Patient commenced on IV Solu-Medrol and Zosyn Patient thinks she needs to stay in the hospital 1 more day. Objective - Vital Signs Vital signs: Vital Signs Temp 97.7 F 09/05/22 08:00 Pulse 74 09/05/22 08:10 Resp 16 09/05/22 08:00 BP 126/78 09/05/22 08:00 Pulse Ox 97 09/05/22 08:00 FiO2 Intake & Output 09/04/22 09/05/22 09/05/22 18:59 06:59 18:59 Intake Total 594 Balance 594 Intake: Oral 594 Other: Voiding Method Toilet # Voids 1 2 - Exam GENERAL: The patient is alert and oriented x3, not in any acute distress. Well developed, well nourished. HEENT: Pupils are round and equally reacting to light. EOMI. No scleral icterus. No conjunctival pallor. Normocephalic, atraumatic. No pharyngeal erythema. No t hyromegaly. CARDIOVASCULAR: S1 and S2 present. No murmurs, rubs, or gallops. -PULMONARY: Chest is clear to auscultation, bilateral scattered wheezing . No crackles. ABDOMEN: Soft, nontender, nondistended, normoactive bowel sounds. No palpable organomegaly. MUSCULOSKELETAL: No joint swelling or deformity. EXTREMITIES: No cyanosis, clubbing, or pedal edema. NEUROLOGICAL: Gross neurological examination did not reveal any focal deficits. SKIN: No rashes. no petechiae. - Labs CBC & Chem 7: 09/04/22 07:41 09/04/22 07:41 Labs: Abnormal Lab Results - Last 24 Hours (Table) 09/04/22 09/04/22 Range/Units 07:41 07:41 Hgb 11.5 L (12.0-15.0) g/dL Hct 36.8 L (37.2-46.3) % MCHC 31.3 L (32.0-37.0) g/dL RDW 16.9 H (11.5-14.5) % Est GFR (CKD-EPI)NonAf 58.7 L (60.0-200.0) Calcium 8.3 L (8.7-10.3) mg/dL Microbiology - Last 24 Hours (Table) 09/01/22 17:25 Blood Culture - Preliminary Blood No Growth after 72 hours 09/01/22 17:20 Blood Culture - Preliminary Blood No Growth after 72 hours 09/02/22 20:57 Gram Stain - Preliminary Sputum Sputum Culture - Preliminary Gram Neg Bacilli Assessment and Plan Assessment: Acute COPD exacerbation LAD the lower lobe pneumonia History of lung cancer, left lung, status post SBRT. Previous history of heavy tobacco use. History of hypertension. History of hyperlipidemia. History of gastroesophageal reflux disease. Plan: Continue with IV Solu-Medrol [facility] Labs and medication were reviewed.. Continue same treatment. Continue with symptomatic treatment. Resume home medication. Monitor lytes and vitals. DVT and GI prophylaxis. Further recommendations as per clinical course of the patient DVT prophylaxis: Subcutaneous lovenox GI Prophylaxis: ppi
[2022-09-05] MEDS: SODIUM CHLORIDE 0.9% 1,000 ML IV SCH (20:19)
[2022-09-05] MEDS: ATORVASTATIN 10 MG TAB PO SCH (20:22)
[2022-09-06] MEDS: methylPREDNISolone SOD SUCCI 40 MG/ML 1 ML VIAL IV SCH ×2 (05:02→14:37)
[2022-09-06] MEDS: BUDESONIDE 1 MG/2 ML NEBU INHALATION SCH (07:39)
[2022-09-06] MEDS: FORMOTEROL FUMARATE 20 MCG/2 ML NEBU INHALATION SCH (07:39)
[2022-09-06] MEDS: IPRATROPIUM-ALBUTEROL 3 ML NEB INHALATION SCH ×3 (07:39→16:13)
[2022-09-06] MEDS: PIPERACILLIN-TAZOBACTAM 3.375 GM in SODIUM CHLORIDE 0.9% 100 ML IVPB SCH (07:58)
[2022-09-06] MEDS: PANTOPRAZOLE 40 MG TABLET PO SCH (07:59)
[2022-09-06] MEDS: amLODIPine 5 MG TAB PO SCH (09:08)
[2022-09-06] MEDS: ENOXAPARIN 40 MG/0.4 ML SYRINGE SQ SCH (09:08)
[2022-09-06 15:43] VITALS: BP 108/67; PULSE 83; RESP 18; TEMP 97.5
--- NOTE | 2022-09-06 16:02 | P.PN ---
Subjective Progress Note Date: 09/06/22 86-year-old female who came to the emergency department on September 01, complaini ng of shortness of breath, cough, and had an abnormal chest x-ray and CAT scan which revealed a pneumonia in the right lower lobe. This a patient was here in July, for similar complaints, but, at that time, we were not consulted. The patient states that she was discharged, and never really improved. The patient has a history of gastroesophageal reflux disease, hyperlipidemia, and hypertension. And also has a history of lung cancer, involving the left lung. She apparently received stereotactic body radiotherapy, 7 treatments, for her lung cancer. She did not require any surgery, or chemotherapy. The patient has a history of heavy tobacco use, for about 40 years a so. She quit many years back. She is originally from [place]. White count 19.2, hemoglobin hematocrit and platelet count all normal. D-dimer 1.61. Sodium 135, potassium 4.3, chlorides 97, CO2 24, anion gap 14, BUN 26, creatinine 0.97. N-terminal proBNP was 2360. Urine was essentially negative. Chest x-ray was reported as normal. Computed tomography scan shows a infiltrate, and the posterior aspect o f the right lower lobe. The patient is seen today 09/03/2022 in follow-up on the regular medical floor. She is currently sitting up in bed. Awake and alert in no acute distress. She is maintaining good O2 saturations in the 90s on room air. She has 0.9 normal saline 20 miles per hour. She is still somewhat bronchospastic and wheezy. Sputum culture pending. Blood culture reveals no growth. White count 5.9. Hemoglobin 10.7. Sodium 138. Potassium 4.3. BUN 18. Creatinine 0.9. AST 14. ALT 31. ProCalcitonin 0.18. She is continued on DuoNeb inhalations, Pulmicort and Perforomist inhalations, IV Cymetra. Empiric antibiotics in the form of Zosyn. The patient is seen today 09/04/2022 in follow-up on the regular medical floor. She is sitting up in bed. Awake and alert in no acute distress. Maintaining good O2 saturations in the 90s on room air. She has normal saline 20 miles per hour. Her appetite is good. She still has a loose nonproductive cough. Blood culture reveals no growth. Sputum culture reveals no growth. No new labs today. She is continued on DuoNeb inhalations, Pulmicort and Perforomist inhalations, IV Solu-Medrol. Remains on antibiotics in the form of Zosyn. Lovenox for DVT prophylaxis. The patient was seen and examined this morning [id number] in follow-up on the regular medical floor. She is sitting up in bed in no acute distress. Maintaining oxygen saturations in the mid 90s on room air. States she feels pretty good although she did not get any sleep last night. He continues to have a loose nonproductive cough. Remains afebrile. Preliminary Gram stain from sputum culture obtained [id number] demonstrates few gram-negative bacilli, re raymon on IV Solu-Medrol and Zosyn. Continues on Duo-nebs, Pulmicort, Perforomist. No labs or x-rays ordered today. Patient is requesting to go home today. No other new concerns. On Today's evaluation of 09/06/2020, I'm seeing the patient for a follow-up. She is doing much better. Sputum culture was positive for pseudomonas aeruginosa and the patient will be discharged home on ciprofloxacin. No fever chills or night sweats. She has an extensive right lower lobe posterior segment pneumonia from which she is recovering. She is still feeling weak. She is on oxygen. She has Symbicort at home along with albuterol neb treatments and HFA. Objective - Vital Signs Vital signs: Vital Signs Temp 97.5 F L 09/06/22 15:00 Pulse 83 09/06/22 15:00 Resp 18 09/06/22 15:00 BP 108/67 09/06/22 15:00 Pulse Ox 99 09/06/22 15:00 FiO2 21 09/05/22 19:48 Intake & Output 09/05/22 09/06/22 09/06/22 18:59 06:59 18:59 Intake Total 594 236 Balance 594 236 Intake: Oral 594 236 Other: Voiding Method Toilet Toilet # Voids 2 2 2 # Bowel Movements 1 - Exam GENERAL EXAM: Alert, thin, very pleasant 86 female, on room air, comfortable in no apparent distress. HEAD: Normocephalic. EYES: Normal reaction of pupils, equal size. NOSE: Clear with pink turbinates. THROAT: No erythema or exudates. NECK: No masses, no JVD. CHEST: No chest wall deformity. LUNGS: Equal air entry with few scattered rhonchi. CVS: S1 and S2 normal with bilateral end expiratory wheeze, few scattered rhonchi. ABDOMEN: No hepatosplenomegaly, normal bowel sounds, no guarding or rigidity. SPINE: No scoliosis or deformity SKIN: No rashes CENTRAL NERVOUS SYSTEM: No focal deficits, tone is normal in all 4 extremities. EXTREMITIES: There is no peripheral edema. No clubbing, no cyanosis. Peripheral pulses are intact. - Labs CBC & Chem 7: 09/04/22 07:41 09/04/22 07:41 Labs: Microbiology - Last 24 Hours (Table) 09/02/22 20:57 Gram Stain - Final Sputum Sputum Culture - Final Pseudomonas aeruginosa 09/01/22 17:25 Blood Culture - Preliminary Blood No Growth after 96 hours 09/01/22 17:20 Blood Culture - Preliminary Blood No Growth after 96 hours Assessment and Plan Plan: COPD exacerbation, complicated by right lower lobe pneumonia. Procalcitonin 0.18. Remains on Zosyn, IV Solu-Medrol.clinically improved. The patient was found to have pseudomonas aeruginosa in her sputum. Recent admission, July 2022, with a similar episode. History of lung cancer, left lung, status post SBRT. Previous history of heavy tobacco use. History of hypertension. History of hyperlipidemia. History of gastroesophageal reflux disease. Plan: Right lower lobe pneumonia. The patient can be discharged home on ciprofloxacin, prednisone burst taper and albuterol neb treatments [id number]. Continue pulmonary toileting. See me back in the office in 2 weeks' time in follow-up.
== END 2022-09-06 16:18 | disposition home health service (06) | DRG 190 ==
LOC: EC 15:12 → 6NMEDSUR 20:15 → OBSVTOIN 09-02 11:57
PROVIDERS: ADMIT Hospitalist; ATTEND Hospitalist
DX: J43.9 Emphysema, unspecified (principal); J15.1 Pneumonia due to Pseudomonas; E78.5 Hyperlipidemia, unspecified; I10 Essential (primary) hypertension; Z79.51 Long term (current) use of inhaled steroids; Z79.899 Other long term (current) drug therapy; Z85.118 Personal history of other malignant neoplasm of bronchus and lung; Z87.891 Personal history of nicotine dependence; Z88.6 Allergy status to analgesic agent; Z90.49 Acquired absence of other specified parts of digestive tract; Z96.651 Presence of right artificial knee joint
CPT/HCPCS: 36415; 71046; 71275; 73502; 80048; 80053; 81001; 83605; 83735; 83880; 84145; 84484; 85025; 85027; 85379; 85610; 85730; 87040; 87070; 87077; 87086; 87186; 87205; 94640; 94760

== ENCOUNTER 2022-09-18 12:29 | Inpatient (IN) | payer MEDICARE, BC ==
--- NOTE | 2022-09-18 12:56 | ED ---
General Adult HPI - General Stated complaint: Weakness Time Seen by Provider: 09/18/22 12:40 Source: patient, RN notes reviewed, old records reviewed - History of Present Illness Initial comments: This is an 86-year-old female presents emergency Department complaining of generalized weakness. Patient states she is has been emergency department 3 times in the last month and the other 2 times a day for pneumonia. Patient states she doesn't cough much and she doesn't feel that short of breath. Patient states she feels just weak all over. Patient denies any fever chills per patient denies abdominal pain patient denies nausea vomiting diarrhea. Patient denies any dysuria hematuria urinary frequency. Patient denies light headedness or dizziness patient denies any headache patient denies numbness weakness - Related Data Home Medications Medication Instructions Recorded Confirmed amLODIPine [Norvasc] 5 mg PO DAILY 07/20/19 09/18/22 Simvastatin [Zocor] 20 mg PO HS 11/03/20 09/18/22 Omeprazole 20 mg PO DAILY 08/18/22 09/18/22 Ondansetron Odt [Zofran ODT] 4 mg PO Q8HR PRN 08/18/22 09/18/22 Albuterol Inhaler [Ventolin Hfa 2 puff INHALATION RT-Q4H PRN 09/01/22 09/18/22 Inhaler] Budesonide-Formot 160-4.5 Mcg 2 puff INHALATION RT-BID 09/01/22 09/18/22 [Symbicort 160-4.5 Mcg Inhaler] Allergies Allergy/AdvReac Type Severity Reaction Status Date / Time aspirin AdvReac Nausea & Verified 09/18/22 13:50 Vomiting Review of Systems ROS Statement: Those systems with pertinent positive or pertinent negative responses have been documented in the HPI. ROS Other: All systems not noted in ROS Statement are negative. 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 Patient is nontoxic and well- hydrated and is in mild distress. ENT: Neck is soft and supple. No significant lymphadenopathy is noted. Oropharynx is clear. Moist mucous membranes. Neck has full range of motion without eliciting any pain. EYES: The sclera were anicteric and conjunctiva were pink and moist. Extraocular movements were intact and pupils were equal round and reactive to light. Eyelids were unremarkable. PULMONARY: Unlabored respirations. Crackles throughout the right lung CARDIOVASCULAR: There is a regular rate and rhythm without any murmurs gallops or rubs. ABDOMEN: Soft and nontender with normal bowel sounds. SKIN: Skin is clear with no lesions or rashes and otherwise unremarkable. Patient has some areas of ecchymosis on the shins bilaterally NEUROLOGIC: Patient is alert and oriented x3. Cranial nerves II through XII are grossly intact. Motor and sensory are also intact. Normal speech, volume and content. Symmetrical smile. MUSCULOSKELETAL: Normal extremities with adequate strength and full range of motion. LYMPHATICS: No significant lymphadenopathy is noted PSYCHIATRIC: Normal psychiatric evaluation. Course Vital Signs 09/18/22 09/18/22 12:48 14:48 Temperature 97.5 F L Pulse Rate 78 78 Respiratory 20 18 Rate Blood Pressure 110/95 111/63 O2 Sat by Pulse 98 98 Oximetry Medical Decision Making - Medical Decision Making EKG shows sinus rhythm with occasional PAC at a rate of 81 bpm MO interval is 176 QRS is 114 QT interval is 45 QTC is 443. Patient's EKG shows a incomplete right bundle branch block. Patient does have some ST segment depression in leads V4 through V6. X-ray shows left upper lobe pneumonia. Patient started on Rocephin. Patient has an elevated troponin. Patient's also being admitted for dehydration. I spoke with [facility] they wanted to admit the patient because sound felt as though this was admission and not a 23 hour observation. - Lab Data Result diagrams: 09/18/22 14:45 09/18/22 13:20 Lab Results 09/18/22 09/18/22 09/18/22 Range/Units 13:20 13:20 13:20 WBC (3.8-10.6) k/uL RBC (3.80-5.40) m/uL Hgb (11.4-16.0) gm/dL Hct (34.0-46.0) % MCV (80.0-100.0) fL MCH (25.0-35.0) pg MCHC (31.0-37.0) g/dL RDW (11.5-15.5) % Plt Count (150-450) k/uL MPV Neutrophils % % Lymphocytes % % Monocytes % % Eosinophils % % Basophils % % Neutrophils # (1.3-7.7) k/uL Lymphocytes # (1.0-4.8) k/uL Monocytes # (0-1.0) k/uL Eosinophils # (0-0.7) k/uL Basophils # (0-0.2) k/uL PT 10.3 (9.0-12.0) sec INR 0.9 (<1.2) APTT 22.9 (22.0-30.0) sec Sodium 132 L (137-145) mmol/L Potassium 4.0 (3.5-5.1) mmol/L Chloride 100 (98-107) mmol/L Carbon Dioxide 23 (22-30) mmol/L Anion Gap 9 mmol/L BUN 32 H (7-17) mg/dL Creatinine 0.97 (0.52-1.04) mg/dL Est GFR (CKD-EPI)AfAm 62 (>60 ml/min/1.73 sqM) Est GFR (CKD-EPI)NonAf 54 (>60 ml/min/1.73 sqM) Glucose 127 H (74-99) mg/dL Plasma Lactic Acid Sajan 2.4 H* (0.7-2.0) mmol/L Calcium 7.5 L (8.4-10.2) mg/dL Total Bilirubin 1.1 (0.2-1.3) mg/dL AST 30 (14-36) U/L ALT 31 (4-34) U/L Alkaline Phosphatase 73 (38-126) U/L Troponin I (0.000-0.034) ng/mL Total Protein 5.0 L (6.3-8.2) g/dL Albumin 2.9 L (3.5-5.0) g/dL Coronavirus (PCR) (Not Detectd) 09/18/22 09/18/22 09/18/22 Range/Units 13:20 13:20 14:45 WBC 13.4 H (3.8-10.6) k/uL RBC 4.50 (3.80-5.40) m/uL Hgb 13.0 (11.4-16.0) gm/dL Hct 38.4 (34.0-46.0) % MCV 85.3 (80.0-100.0) fL MCH 28.9 (25.0-35.0) pg MCHC 33.9 (31.0-37.0) g/dL RDW 16.0 H (11.5-15.5) % Plt Count 178 (150-450) k/uL MPV 7.9 Neutrophils % 92 % Lymphocytes % 5 % Monocytes % 2 % Eosinophils % 1 % Basophils % 0 % Neutrophils # 12.3 H (1.3-7.7) k/uL Lymphocytes # 0.6 L (1.0-4.8) k/uL Monocytes # 0.2 (0-1.0) k/uL Eosinophils # 0.1 (0-0.7) k/uL Basophils # 0.1 (0-0.2) k/uL PT (9.0-12.0) sec INR (<1.2) APTT (22.0-30.0) sec Sodium (137-145) mmol/L Potassium (3.5-5.1) mmol/L Chloride (98-107) mmol/L Carbon Dioxide (22-30) mmol/L Anion Gap mmol/L BUN (7-17) mg/dL Creatinine (0.52-1.04) mg/dL Est GFR (CKD-EPI)AfAm (>60 ml/min/1.73 sqM) Est GFR (CKD-EPI)NonAf (>60 ml/min/1.73 sqM) Glucose (74-99) mg/dL Plasma Lactic Acid Sajan (0.7-2.0) mmol/L Calcium (8.4-10.2) mg/dL Total Bilirubin (0.2-1.3) mg/dL AST (14-36) U/L ALT (4-34) U/L Alkaline Phosphatase (38-126) U/L Troponin I 0.063 H* (0.000-0.034) ng/mL Total Protein (6.3-8.2) g/dL Albumin (3.5-5.0) g/dL Coronavirus (PCR) Not Detected (Not Detectd) Disposition Clinical Impression: Elevated troponin, Pneumonia, Generalized weakness, Dehydration Disposition: ADMITTED IP TO THIS HOSP Referrals: Dali Akins DO [Primary Care Provider] - 1-2 days Time of Disposition: 15:09
--- NOTE | 2022-09-18 13:41 | XR ---
EXAMINATION TYPE: XR chest 2V DATE OF EXAM: 09/18/2022 COMPARISON: Chest x-ray and CTA chest September 01, 2022 HISTORY: Fever. TECHNIQUE: Frontal and lateral views of the chest are obtained. FINDINGS: There is persistent chronic parenchymal change with left perihilar increased opacity redem onstrated. The cardiac silhouette size is stable and mildly enlarged. The osseous structures are d emineralized. Underlying scoliosis is redemonstrated. IMPRESSION: Chronic emphysematous change and mild cardiomegaly with anterior left upper lung opacity consistent with consolidation redemonstrated. Cannot exclude underlying mass. Consider follow-up PET CT to further evaluate.
[2022-09-18 13:58] LABS: Albumin 2.9 g/dL (3.5-5.0); Calcium 7.5 mg/dL (8.4-10.2); Total Bilirubin 1.1 mg/dL (0.2-1.3)
[2022-09-18 13:59] LABS: INR 0.9 (<1.2); Partial Thromboplastin Time 22.9 sec (22.0-30.0); Prothrombin Time 10.3 sec (9.0-12.0)
[2022-09-18] MEDS ORDERED: SODIUM CHLORIDE 0.9% 1,000 ML IV ONE (14:40)
[2022-09-18 14:53] LABS: Basophils # (A) 0.1 k/uL (0-0.2); Basophils % (A) 0 %; Eosinophils # (A) 0.1 k/uL (0-0.7); Eosinophils % (A) 1 %; HCT 38.4 % (34.0-46.0); Lymphocytes # (A) 0.6 k/uL (1.0-4.8); Lymphocytes % (A) 5 %; MCH 28.9 pg (25.0-35.0); MCHC 33.9 g/dL (31.0-37.0); MCV 85.3 fL (80.0-100.0); Mean Platelet Volume 7.9; Monocytes # (A) 0.2 k/uL (0-1.0); Monocytes % (A) 2 %; Neutrophils # (A) 12.3 k/uL (1.3-7.7); Neutrophils % (A) 92 %; Platelet Count 178 k/uL (150-450); WBC 13.4 k/uL (3.8-10.6)
[2022-09-18] MEDS ORDERED: AZITHROMYCIN 500 MG in SODIUM CHLORIDE 0.9% 250 ML IVPB STA (15:10)
[2022-09-18] MEDS ORDERED: PNEUMONIA PROTOCOL UTILIZED 1 EACH MISC PO PRN (15:10)
[2022-09-18] MEDS ORDERED: PIPERACILLIN-TAZOBACTAM 3.375 GM in SODIUM CHLORIDE 0.9% 100 ML IVPB STA (15:10)
[2022-09-18] MEDS: SODIUM CHLORIDE 0.9% 1,000 ML IV SCH (16:41)
[2022-09-18] MEDS ORDERED: ALBUTEROL NEBULIZED 2.5 MG/3 ML INHALATION PRN (16:44)
[2022-09-18] MEDS ORDERED: ONDANSETRON ODT 4 MG TAB PO PRN (16:44)
--- NOTE | 2022-09-18 17:22 | CT ---
EXAMINATION TYPE: CT chest wo con DATE OF EXAM: 09/18/2022 COMPARISON: 09/01/2022 HISTORY: reoccuring pneumonia CT DLP: 253.9 mGycm Automated exposure control for dose reduction was used. Images obtained from the thoracic inlet to the diaphragm without contrast. There are some coarse infiltrate at the lung bases bilaterally and more on the right side. There is c onsolidation left posterior lung base. Heart size is normal. Thoracic aorta is atheromatous. There ar e no hilar masses. There is hiatal hernia. There is some airspace consolidation in the anterior segme nt left upper lobe adjacent to the chest wall. There is pulmonary emphysema. There is a thoracolumbar levoscoliosis. There is some spurring in the lower thoracic spine. No compression fracture. There is retained fecal material in the large bowel. IMPRESSION: There is consolidation in the anterior segment left upper lobe and also at the right posterior lung b ase which are not significantly different than last exam. There is emphysema and pulmonary fibrosis. Normal heart size. Atherosclerotic vascular disease. No increasing pulmonary density compared to old exam.
[2022-09-18 20:15] LABS: Appearance,Urine Cloudy (Clear); Bacteria,Urine Rare /hpf; Bilirubin,Urine Negative (Negative); Blood,Urine Small (Negative); Budding Yeast,Urine Few /hpf; Color,Urine Yellow; Glucose,Urine (UA) Negative (Negative); Ketones,Urine Negative (Negative); Leukocyte Esterase,Urine Large (Negative); Mucus,Urine Rare /hpf; Nitrite,Urine Negative (Negative); PH, Urine 5.5 (5.0-8.0); Protein,Urine Trace (Negative); RBC,Urine 24 /hpf (0-5); Specific Gravity,Urine 1.025 (1.001-1.035); Squamous Epithelial Cell,Urine 13 /hpf (0-4); Urobilinogen,Urine <2.0 mg/dL (<2.0); WBC,Urine 53 /hpf (0-5)
[2022-09-18] MEDS: SYMBICORT 160-4.5 MCG INHALER INHALATION SCH (20:26)
[2022-09-18] MEDS: ATORVASTATIN 10 MG TAB PO SCH (20:30)
[2022-09-19] MEDS: PIPERACILLIN-TAZOBACTAM 3.375 GM in SODIUM CHLORIDE 0.9% 100 ML IVPB SCH ×4 (00:04→23:45)
[2022-09-19] MEDS: PANTOPRAZOLE 40 MG TABLET PO SCH (06:27)
--- NOTE | 2022-09-19 06:27 | XR ---
EXAMINATION TYPE: XR chest 2V DATE OF EXAM: 09/19/2022 COMPARISON: Chest x-ray and CT from one day earlier HISTORY: Pneumonia. TECHNIQUE: Frontal and lateral views of the chest are obtained. FINDINGS: There is background chronic emphysematous change with persistent anterior left upper lung nodular consolidation and posterior right basilar consolidation. The cardiac silhouette size is stab le and within normal limits. Underlying scoliosis is present. IMPRESSION: Chronic emphysematous change with persistent anterior left upper lung and posterior righ t basilar areas of consolidation.
[2022-09-19] MEDS: SODIUM CHLORIDE 0.9% 1,000 ML IV SCH ×2 (06:28→11:40)
[2022-09-19] MEDS: SYMBICORT 160-4.5 MCG INHALER INHALATION SCH ×2 (08:07→20:53)
[2022-09-19] MEDS: amLODIPine 5 MG TAB PO SCH (08:43)
[2022-09-19 09:38] LABS: Anisocytosis Slight; Basophils % (A) 0 %; Eosinophils % (A) 1 %; HCT 35.2 % (34.0-46.0); HGB 11.2 gm/dL (11.4-16.0); Hypochromasia Slight; Lymphocytes # (A) 0.7 k/uL (1.0-4.8); Lymphocytes % (A) 8 %; MCH 28.2 pg (25.0-35.0); MCHC 31.7 g/dL (31.0-37.0); Mean Platelet Volume 7.9; Monocytes # (A) 0.2 k/uL (0-1.0); Monocytes % (A) 2 %; Neutrophils # (A) 7.7 k/uL (1.3-7.7); Neutrophils % (A) 88 %; Platelet Count 154 k/uL (150-450); RBC 3.96 m/uL (3.80-5.40); RDW 16.6 % (11.5-15.5); WBC 8.7 k/uL (3.8-10.6)
[2022-09-19 09:57] LABS: Calcium 6.9 mg/dL (8.4-10.2); Potassium 3.4 mmol/L (3.5-5.1)
--- NOTE | 2022-09-19 12:20 | P.CNPUL ---
History of Present Illness Consult date: 09/19/22 Reason for consult: pneumonia Chief complaint: Shortness of breath and cough History of present illness: This is an 86-year-old female seen by Dr. Sandoval on consultation back on 09/02/22, patient was seen for Pseudomonas pneumonia, and underlying COPD exacerbation. Patient was treated with proper antibiotics, her sputum was positive for Pseudomonas aeruginosa, patient was eventually discharged home on proper antibiotics. She was discharged on 09/06. Patient is also known to have history of lung CVA, involving left upper lobe and she had previous SB RT. This time the patient came in with similar symptoms including few days history of cough, cough is productive with yellow phlegm, chills but no fever, intermittent cough and wheezing. CT of the chest continued to show consolidation in the anterior segment of the left upper lobe also in the right posterior lung base. Patient had also underlying COPD and pulmonary fibrosis. Considering her symptoms, patient was admitted and this consult was initiated. Her WBC count is 8.7 her electrolytes are relatively normal renal profile is normal, pro- calcitonin level is pending. Patient did have abnormal urinalysis suggestive of acute urinary tract infection although the patient has no symptoms of UTI Review of Systems CONSTITUTIONAL: [Negative.] NEUROLOGIC: [ Negative.] HEENT: [ Negative.] CARDIAC: [Negative.] PULMONARY: As noted in HPI GI: [Negative.] : [Negative.] RHEUMATOLOGIC: [ Negative.] IMMUNOLOGIC: [ Negative.] ENDOCRINE: [Negative. ] DERMATOLOGIC: [Negative.] Past Medical History Past Medical History: GERD/Reflux, Hyperlipidemia, Hypertension Additional Past Medical History / Comment(s): lung ca History of Any Multi-Drug Resistant Organisms: None Reported Past Surgical History: Cholecystectomy, Tonsillectomy Additional Past Surgical History / Comment(s): stomach, thyroid tumor, rt hip replacemnt - Past Anesthesia/Blood Transfusion Reactions: No Reported Reaction Past Psychological History: No Psychological Hx Reported Smoking Status: Former smoker Past Alcohol Use History: None Reported Past Drug Use History: None Reported - Past Family History Family Family Medical History: Coronary Artery Disease (CAD) Medications and Allergies Home Medications Medication Instructions Recorded Confirmed Type amLODIPine [Norvasc] 5 mg PO DAILY 07/20/19 09/18/22 History Simvastatin [Zocor] 20 mg PO HS 11/03/20 09/18/22 History Omeprazole 20 mg PO DAILY 08/18/22 09/18/22 History Ondansetron Odt [Zofran ODT] 4 mg PO Q8HR PRN 08/18/22 09/18/22 History Albuterol Inhaler [Ventolin Hfa 2 puff INHALATION RT-Q4H PRN 09/01/22 09/18/22 History Inhaler] Budesonide-Formot 160-4.5 Mcg 2 puff INHALATION RT-BID 09/01/22 09/18/22 History [Symbicort 160-4.5 Mcg Inhaler] Allergies Allergy/AdvReac Type Severity Reaction Status Date / Time aspirin AdvReac Nausea & Verified 09/18/22 13:50 Vomiting Physical Exam Vitals: Vital Signs Temp Pulse Pulse Resp BP BP Pulse Ox 09/19/22 11:42 71 16 91/45 95 09/19/22 08:07 95 09/19/22 08:00 96.4 F L 76 16 99/50 09/19/22 04:00 97.9 F 72 18 101/49 96 09/19/22 02:00 18 09/19/22 00:00 78 18 96/46 98 09/18/22 20:00 76 20 09/18/22 19:48 97.6 F 76 18 97/52 98 09/18/22 18:05 84 16 97/48 95 09/18/22 16:40 78 18 115/65 95 09/18/22 14:48 78 18 111/63 98 09/18/22 12:48 97.5 F L 78 20 110/95 98 Intake and Output 09/18/22 09/19/22 09/19/22 22:59 06:59 14:59 Intake Total 100 Output Total 200 800 Balance -200 -700 Intake: Oral 100 Output: Urine 200 800 Other: Voiding Method Bedside Commode Bedside Commode Bedpan Bedpan # Voids 1 # Bowel Movements 1 Weight 50.802 kg Physical Exam: Revealed 86-year-old female in no distress. Head: Atraumatic, normocephalic. HEENT:[Neck is supple.] [No neck masses.] [No thyromegaly.] [No JVD.] Chest: Scattered rhonchi noted bilaterally. Dorsal on forced expiratory maneuver. Cardiac Exam: [Normal S1 and S2, no S3 gallop, no murmur.] Abdomen: [Soft, nontender, no megaly, no rebound, no guarding, normal bowel sounds.] Extremities: [No clubbing, no edema, no cyanosis.] Neurological Exam: [No focal neurologic deficit.] Alert oriented 3. Psychiatric: Normal mood affect and normal mental status examination. Skin: No rash Results - Laboratory Findings CBC and BMP: 09/19/22 09:02 09/19/22 09:02 PT/INR, D-dimer PT 10.3 sec (9.0-12.0) 09/18/22 13:20 INR 0.9 (<1.2) 09/18/22 13:20 Abnormal lab findings: Abnormal Labs 09/18/22 09/18/22 09/18/22 13:20 13:20 13:20 WBC Hgb RDW Neutrophils # Lymphocytes # Sodium 132 L Potassium Chloride Carbon Dioxide BUN 32 H Glucose 127 H Plasma Lactic Acid Sajan 2.4 H* Calcium 7.5 L Troponin I 0.063 H* Total Protein 5.0 L Albumin 2.9 L Urine Appearance Urine Protein Urine Blood Ur Leukocyte Esterase Urine RBC Urine WBC Urine WBC Clumps Ur Squamous Epith Cells Urine Bacteria Urine Mucus Urine Yeast (Budding) 09/18/22 09/18/22 09/19/22 14:45 19:45 09:02 WBC 13.4 H Hgb 11.2 L RDW 16.0 H 16.6 H Neutrophils # 12.3 H Lymphocytes # 0.6 L 0.7 L Sodium Potassium Chloride Carbon Dioxide BUN Glucose Plasma Lactic Acid Sajan Calcium Troponin I Total Protein Albumin Urine Appearance Cloudy H Urine Protein Trace H Urine Blood Small H Ur Leukocyte Esterase Large H Urine RBC 24 H Urine WBC 53 H Urine WBC Clumps Rare H Ur Squamous Epith Cells 13 H Urine Bacteria Rare H Urine Mucus Rare H Urine Yeast (Budding) Few H 09/19/22 09:02 WBC Hgb RDW Neutrophils # Lymphocytes # Sodium 135 L Potassium 3.4 L Chloride 108 H Carbon Dioxide 20 L BUN 22 H Glucose Plasma Lactic Acid Sajan Calcium 6.9 L Troponin I Total Protein Albumin Urine Appearance Urine Protein Urine Blood Ur Leukocyte Esterase Urine RBC Urine WBC Urine WBC Clumps Ur Squamous Epith Cells Urine Bacteria Urine Mucus Urine Yeast (Budding) - Diagnostic Findings CT scan - chest: image reviewed (As noted in HPI) Assessment and Plan Assessment: Impression: Acute exacerbation of COPD Chronic right lower lobe pneumonia, secondary to pseudomonas aeruginosa 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 Benign essential hypertension Ex-smoker Dyslipidemia GERD without esophagitis Recommendation: Continue bronchodilators including Symbicort and DuoNeb updrafts 4 times a day and when necessary Continue Zosyn Resume home meds Continue to follow and if the patient does not demonstrate significant improvement May have to be considered for bronchoscopy We will continue to follow Time with Patient: Greater than 30
--- NOTE | 2022-09-19 14:07 | P.CRDCN ---
History of Present Illness Consult date: 09/19/22 History of present illness: Patient has a known history of hypertension, hyperlipidemia, COPD who presented to the ER with complaints of generalized weakness. Patient has been seen in the ER multiple times over the last month. She was diagnosed with pneumonia. We have been consulted to see the patient for elevated troponins and EKG changes. Her initial troponin was 0.063 and her EKG showed sinus rhythm with PACs with left axis deviation and incomplete right bundle branch block, with ST-T wave abnormalities. Noted ST depression in leads V4 through 6. She had an echocardiogram on 08/20/2022 which showed normal LV function with mild mitral regurgitation. Her chest x-ray this visit showed left upper lobe pneumonia and is currently being treated with IV antibiotics. Her chest CT also shows left upper lobe and right posterior pneumonia. Upon initial admission her lactic was elevated at 2.4 BUN was slightly elevated at 32. Upon exam patient is resting c omfortably in bed. She denies chest pain, palpitations, cough, or shortness of breath. She does report a family history of heart disease. We'll trend troponin laboratory. Will continue with amlodipine, atorvastatin. Patient has an aspirin ALLERGY. At this time will not start a beta adriana due to history of COPD. Will obtain a 2-D electrocardiogram Review of Systems REVIEW OF SYSTEMS At the time of my exam: CONSTITUTIONAL: Denies fever or chills. Complains of weakness EYES: Negative for vision changes ENT: Negative for hearing loss CARDIOVASCULAR: Denies chest pain, shortness of breath, diaphoresis, orthopnea, PND or palpitations. VASCULAR: Denies edema RESPIRATORY: Denies cough. GASTROINTESTINAL: Denies abdominal pain, diarrhea, constipation, nausea or vomiting. MUSCULOSKELETAL: Denies myalgias. NEUROLOGIC: Denies numbness, tingling, headache or weakness. ENDOCRINE: Denies fatigue, weight change, polydipsia or polyurina. GENITOURINARY: Denies burning, hematuria or urgency with micturation. HEMATOLOGIC: Denies history of anemia or bleeding. DERMATOLOGY: Denies rash or skin sores PSYCH: Negative for depression or hallucinations. Past Medical History Past Medical History: GERD/Reflux, Hyperlipidemia, Hypertension Additional Past Medical History / Comment(s): lung ca History of Any Multi-Drug Resistant Organisms: None Reported Past Surgical History: Cholecystectomy, Tonsillectomy Additional Past Surgical History / Comment(s): stomach, thyroid tumor, rt hip replacemnt - Past Anesthesia/Blood Transfusion Reactions: No Reported Reaction Past Psychological History: No Psychological Hx Reported Smoking Status: Former smoker Past Alcohol Use History: None Reported Past Drug Use History: None Reported - Past Family History Family Family Medical History: Coronary Artery Disease (CAD) Medications and Allergies Home Medications Medication Instructions Recorded Confirmed Type amLODIPine [Norvasc] 5 mg PO DAILY 07/20/19 09/18/22 History Simvastatin [Zocor] 20 mg PO HS 11/03/20 09/18/22 History Omeprazole 20 mg PO DAILY 08/18/22 09/18/22 History Ondansetron Odt [Zofran ODT] 4 mg PO Q8HR PRN 08/18/22 09/18/22 History Albuterol Inhaler [Ventolin Hfa 2 puff INHALATION RT-Q4H PRN 09/01/22 09/18/22 History Inhaler] Budesonide-Formot 160-4.5 Mcg 2 puff INHALATION RT-BID 09/01/22 09/18/22 History [Symbicort 160-4.5 Mcg Inhaler] Allergies Allergy/AdvReac Type Severity Reaction Status Date / Time aspirin AdvReac Nausea & Verified 09/18/22 13:50 Vomiting Physical Exam Vitals: Vital Signs Temp Pulse Pulse Resp BP BP Pulse Ox 09/19/22 11:42 71 16 91/45 95 09/19/22 08:07 95 09/19/22 08:00 96.4 F L 76 16 99/50 09/19/22 04:00 97.9 F 72 18 101/49 96 09/19/22 02:00 18 09/19/22 00:00 78 18 96/46 98 09/18/22 20:00 76 20 09/18/22 19:48 97.6 F 76 18 97/52 98 09/18/22 18:05 84 16 97/48 95 09/18/22 16:40 78 18 115/65 95 09/18/22 14:48 78 18 111/63 98 Intake and Output 09/18/22 09/19/22 09/19/22 22:59 06:59 14:59 Intake Total 100 Output Total 200 800 Balance -200 -700 Intake: Oral 100 Output: Urine 200 800 Other: Voiding Method Bedside Commode Bedside Commode Bedpan Bedpan # Voids 1 # Bowel Movements 1 Weight 50.802 kg PHYSICAL EXAMINATION VITAL SIGNS: Reviewed General: The patient is awake and alert, in no distress, and does not appear acutely ill. Skin: Skin is warm and dry and no rashes or lesions are noted. Eye: Pupils are equal, round and reactive to light, extra-ocular movements are intact; there is normal conjunctiva bilaterally. Ears, nose, mouth and throat: There are moist mucous membranes and no oral lesions. Neck: The neck is supple, there is no tenderness or JVD. Cardiovascular: There is irregular regular rate and rhythm. No murmur, rub or gallop is appreciated. Respiratory: Lungs are clear to auscultation, respirations are non-labored, breath sounds are equal. Gastrointestinal: Soft, non-distended, non-tender abdomen without masses or organomegaly noted. There is no rebound or guarding present. Bowel sounds are unremarkable. Back: There is no tenderness to palpation in the midline. There is no obvious deformity. Musculoskeletal: Normal ROM, no tenderness, There is no pedal edema. There is no calf tenderness or swelling. Extremities: Mild bilateral pitting edema Vascular: Femoral pulse is normal. Posterior tibial pulses are normal .Dorsalis pedis is palpable. Neurological: CN II-XII intact. There are no obvious motor or sensory deficits. Speech is normal. Psychiatric: Cooperative, appropriate mood & affect, normal judgment Results 09/19/22 09:02 09/19/22 09:02 Cardiac Enzymes 09/18/22 09/18/22 Range/Units 13:20 13:20 AST 30 (14-36) U/L Troponin I 0.063 H* (0.000-0.034) ng/mL Coagulation 09/18/22 Range/Units 13:20 PT 10.3 (9.0-12.0) sec APTT 22.9 (22.0-30.0) sec CBC 09/18/22 09/19/22 Range/Units 14:45 09:02 WBC 13.4 H 8.7 (3.8-10.6) k/uL RBC 4.50 3.96 (3.80-5.40) m/uL Hgb 13.0 11.2 L (11.4-16.0) gm/dL Hct 38.4 35.2 (34.0-46.0) % Plt Count 178 154 (150-450) k/uL Comprehensive Metabolic Panel 09/18/22 09/19/22 Range/Units 13:20 09:02 Sodium 132 L 135 L (137-145) mmol/L Potassium 4.0 3.4 L (3.5-5.1) mmol/L Chloride 100 108 H (98-107) mmol/L Carbon Dioxide 23 20 L (22-30) mmol/L BUN 32 H 22 H (7-17) mg/dL Creatinine 0.97 0.87 (0.52-1.04) mg/dL Glucose 127 H 81 (74-99) mg/dL Calcium 7.5 L 6.9 L (8.4-10.2) mg/dL AST 30 (14-36) U/L ALT 31 (4-34) U/L Alkaline Phosphatase 73 (38-126) U/L Total Protein 5.0 L (6.3-8.2) g/dL Albumin 2.9 L (3.5-5.0) g/dL Current Medications Generic Name Dose Route Start Last Admin Trade Name Freq PRN Reason Stop Dose Admin Albuterol Sulfate 2.5 mg 09/18/22 16:44 Albuterol Nebulized 2.5 Mg/3 Ml INHALATION RT-Q4H PRN Shortness Of Breath Or Wheezing Amlodipine Besylate 5 mg 09/19/22 09:00 09/19/22 08:43 Amlodipine 5 Mg Tab PO 5 mg DAILY PREMA Administration Atorvastatin Calcium 10 mg 09/18/22 21:00 09/18/22 20:30 Atorvastatin 10 Mg Tab PO 10 mg HS PREMA Administration Budesonide/Formoterol Fumarate 2 puff 09/18/22 20:00 09/19/22 08:07 Symbicort 160-4.5 Mcg Inhaler INHALATION 2 puff RT-BID PREMA Administration Sodium Chloride 1,000 mls @ 100 mls/hr 09/18/22 15:15 09/19/22 11:40 Saline 0.9% IV 100 mls/hr .Q10H PREMA Administration Piperacillin Sod/Tazobactam 100 mls @ 25 mls/hr 09/19/22 00:00 09/19/22 08:43 Sod 3.375 gm/ Sodium Chloride IVPB 09/23/22 16:01 25 mls/hr Q8HR PREMA Administration Protocol Azithromycin 500 mg/ Sodium 250 mls @ 250 mls/hr 09/19/22 16:00 Chloride IVPB 09/20/22 16:59 Q24H PREMA Protocol Miscellaneous Information 1 each 09/18/22 15:10 Pneumonia Protocol Utilized 1 Each Misc PO ONCE PRN Per Protocol Ondansetron HCl 4 mg 09/18/22 16:44 Ondansetron Odt 4 Mg Tab PO Q8HR PRN Nausea Pantoprazole Sodium 40 mg 09/19/22 07:30 09/19/22 06:27 Pantoprazole 40 Mg Tablet PO 40 mg [id number] PREMA Administration Intake and Output 09/18/22 09/19/22 09/19/22 22:59 06:59 14:59 Intake Total 100 Output Total 200 800 Balance -200 -700 Intake: Oral 100 Output: Urine 200 800 Other: Voiding Method Bedside Commode Bedside Commode Bedpan Bedpan # Voids 1 # Bowel Movements 1 Weight 50.802 kg 09/19/22 09:02 09/19/22 09:02 Assessment and Plan Assessment: Elevated troponins and non-STEMI believed to be secondary due to pneumonia. Hypertension COPD Plan: Obtain 2 additional troponin readings, obtain a 2-D echocardiogram Will hold starting aspirin at this time due to she has an ALLERGY to aspirin Further recommendations based on clinical course The above impression and plan of care have been discussed and directed by the signing physician. Kavitha Mccabe, nurse practitioner, acting as scribe for [facility] physician.
[2022-09-19] MEDS ORDERED: AZITHROMYCIN 500 MG in SODIUM CHLORIDE 0.9% 250 ML IVPB SCH (16:00)
[2022-09-19] MEDS: ATORVASTATIN 10 MG TAB PO SCH (20:36)
--- NOTE | 2022-09-19 21:57 | P.CONS ---
History of Present Illness - Reason for Consult Consult date: 09/19/22 - History of Present Illness Patient is a 86-year-old female with a past medical history significant for COPD in this patient recently admitted to the hospital for pneumonia sputum was positive for Pseudomonas aeruginosa patient was treated with IV antibiotic therapy subsequent discharged home on oral Cipro the patient has completed patient was discharged on 09/06/2022, patient not brought back to the hospital on 09/18/2022 for evaluation of generalized weakness patient denies high-grade fever or chills patient complaining of cough which has been mild in intensity with occasional sputum no hemoptysis no pleuritic chest pain message remains to be generalized weakness patient denies having any nausea no vomiting no abdominal pain no diarrhea mention her urine is slightly concentrated but denies any dysuria hematuria or urinary frequency with the symptoms the patient was evaluated by the ER physician on arrival to the ER patient was afebrile no fever has been recorded subsequently patient is currently 9627% on room air patient did have white count of 13.4 admission with a left shift BUN was slightly elevated creatinine is normal did have elevated troponin urine is positive COVID testing was negative patient did have blood cultures drawn which are so far negative chest x-ray chronic emphysematous changes mild cardiomegaly with anterior left upper lobe opacity consistent with consolidation cannot exclude underlying mass patient did have a CT of the chest consolidation anterior segment left upper lobe and right posterior lung base not significant different from the last exam patient has been started on Zosyn and Zithromax infectious disease was consulted for further management of antibiotic therapy Past Medical History Past Medical History: GERD/Reflux, Hyperlipidemia, Hypertension Additional Past Medical History / Comment(s): lung ca History of Any Multi-Drug Resistant Organisms: None Reported Past Surgical History: Cholecystectomy, Tonsillectomy Additional Past Surgical History / Comment(s): stomach, thyroid tumor, rt hip replacemnt - Past Anesthesia/Blood Transfusion Reactions: No Reported Reaction Past Psychological History: No Psychological Hx Reported Smoking Status: Former smoker Past Alcohol Use History: None Reported Past Drug Use History: None Reported - Past Family History Family Family Medical History: Coronary Artery Disease (CAD) Medications and Allergies Home Medications Medication Instructions Recorded Confirmed Type amLODIPine [Norvasc] 5 mg PO DAILY 07/20/19 09/18/22 History Simvastatin [Zocor] 20 mg PO HS 11/03/20 09/18/22 History Omeprazole 20 mg PO DAILY 08/18/22 09/18/22 History Ondansetron Odt [Zofran ODT] 4 mg PO Q8HR PRN 08/18/22 09/18/22 History Albuterol Inhaler [Ventolin Hfa 2 puff INHALATION RT-Q4H PRN 09/01/22 09/18/22 History Inhaler] Budesonide-Formot 160-4.5 Mcg 2 puff INHALATION RT-BID 09/01/22 09/18/22 History [Symbicort 160-4.5 Mcg Inhaler] Allergies Allergy/AdvReac Type Severity Reaction Status Date / Time aspirin AdvReac Nausea & Verified 09/18/22 13:50 Vomiting Physical Exam Vitals: Vital Signs Temp Pulse Pulse Resp BP BP Pulse Ox 09/19/22 11:42 71 16 91/45 95 09/19/22 08:07 95 09/19/22 08:00 96.4 F L 76 16 99/50 09/19/22 04:00 97.9 F 72 18 101/49 96 09/19/22 02:00 18 09/19/22 00:00 78 18 96/46 98 09/18/22 20:00 76 20 09/18/22 19:48 97.6 F 76 18 97/52 98 09/18/22 18:05 84 16 97/48 95 09/18/22 16:40 78 18 115/65 95 09/18/22 14:48 78 18 111/63 98 Intake and Output 09/18/22 09/19/22 09/19/22 22:59 06:59 14:59 Intake Total 100 Output Total 200 800 Balance -200 -700 Intake: Oral 100 Output: Urine 200 800 Other: Voiding Method Bedside Commode Bedside Commode Bedpan Bedpan # Voids 1 # Bowel Movements 1 Weight 50.802 kg Results CBC & Chem 7: 09/19/22 09:02 09/19/22 09:02 Labs: Abnormal Lab Results - Last 24 Hours (Table) 09/18/22 09/18/22 09/19/22 Range/Units 14:45 19:45 09:02 WBC 13.4 H (3.8-10.6) k/uL Hgb 11.2 L (11.4-16.0) gm/dL RDW 16.0 H 16.6 H (11.5-15.5) % Neutrophils # 12.3 H (1.3-7.7) k/uL Lymphocytes # 0.6 L 0.7 L (1.0-4.8) k/uL Sodium (137-145) mmol/L Potassium (3.5-5.1) mmol/L Chloride (98-107) mmol/L Carbon Dioxide (22-30) mmol/L BUN (7-17) mg/dL Calcium (8.4-10.2) mg/dL Urine Appearance Cloudy H (Clear) Urine Protein Trace H (Negative) Urine Blood Small H (Negative) Ur Leukocyte Esterase Large H (Negative) Urine RBC 24 H (0-5) /hpf Urine WBC 53 H (0-5) /hpf Urine WBC Clumps Rare H (None) /hpf Ur Squamous Epith Cells 13 H (0-4) /hpf Urine Bacteria Rare H (None) /hpf Urine Mucus Rare H (None) /hpf Urine Yeast (Budding) Few H (None) /hpf 09/19/22 Range/Units 09:02 WBC (3.8-10.6) k/uL Hgb (11.4-16.0) gm/dL RDW (11.5-15.5) % Neutrophils # (1.3-7.7) k/uL Lymphocytes # (1.0-4.8) k/uL Sodium 135 L (137-145) mmol/L Potassium 3.4 L (3.5-5.1) mmol/L Chloride 108 H (98-107) mmol/L Carbon Dioxide 20 L (22-30) mmol/L BUN 22 H (7-17) mg/dL Calcium 6.9 L (8.4-10.2) mg/dL Urine Appearance (Clear) Urine Protein (Negative) Urine Blood (Negative) Ur Leukocyte Esterase (Negative) Urine RBC (0-5) /hpf Urine WBC (0-5) /hpf Urine WBC Clumps (None) /hpf Ur Squamous Epith Cells (0-4) /hpf Urine Bacteria (None) /hpf Urine Mucus (None) /hpf Urine Yeast (Budding) (None) /hpf Assessment and Plan Plan: 1patient with history of COPD recent admission to the hospital about 2 weeks ago and the patient was treated for pneumonia patient noticed to have a significant consolidation in the left upper lobe and right posterior lung on this admission with a previous sputum positive for Pseudomonas concern for possible incomplete resolution of episode of pneumonia. 2we will obtain a sputum for gram stain and culture and check a CRP and procalcitonin. 3continue with Zosyn while waiting for the culture to finalize. We will follow on clinical condition and cultures to further adjust medication if needed Thank you for this consultation will follow this patient along with you Time with Patient: Greater than 30
--- NOTE | 2022-09-20 00:13 | HP ---
HISTORY AND PHYSICAL CHIEF COMPLAINT: Weakness and recurrent pneumonia. HISTORY OF PRESENT ILLNESS: This 86-year-old woman with a past medical history hypertension, hyperlipidemia, recently admitted with pneumonia. The patient apparently had 3 times pneumonia in the recent months. The patient had left lower lobe pneumonia. Currently, the chest x-ray showed left upper lobe pneumonia. PET scan has been recommended. There is no history of any fever, rigors, chills, headache, loss of consciousness, seizures PAST MEDICAL HISTORY: Recent recurrent pneumonia, hypertension, hyperlipidemia. PAST SURGICAL HISTORY: Reviewed. HOME MEDICATIONS: Reviewed, include Zofran, dose and rest of medication noted. ALLERGIES: Aspirin. FAMILY HISTORY: History of coronary artery disease in the family. SOCIAL HISTORY: Previous smoker. REVIEW OF SYSTEMS: 14-point review is negative except mentioned earlier. PHYSICAL EXAMINATION: VITAL SIGNS: Pulse is 78, blood pressure 111/63, respiration 18. HEENT: Conjunctivae normal. Oral mucosa dry. NECK: No jugular venous distention. CARDIOVASCULAR: S1 and S2 muffled. RESPIRATION: Breath sounds diminished at the bases. Few scattered rhonchi and crackles. ABDOMEN: Soft, nontender. LEGS: No edema, no swelling. NERVOUS SYSTEM: Diffusely weak. SKIN: No ulcer, rash, bleeding. JOINTS: No active deforming arthropathy. LABS: WBC 13.6. Other labs are noted. ASSESSMENT: 1. Left upper lobe pneumonia. 2. History of recurrent pneumonia. 3. Hypertension. 4. Hyperlipidemia. 5. Multiple medical issues. RECOMMENDATION: This 86-year-old woman who presented with multiple medical issues. At this time, I recommend to continue current medications. I will initiate broad-spectrum IV antibiotics. Possible acute pneumonia is consideration. We will obtain Infectious Disease and Pulmonary consultations. We will repeat CT chest without any IV contrast. Otherwise, BUN is slightly elevated. Get repeat labs. The troponin is found to be 0.63, which is indeterminate. Once again, the prognosis guarded. Further recommendations to follow. See orders for further details. Cardiology also has been consulted. MMODL / IJN: [id number] / MTDD
--- NOTE | 2022-09-20 02:55 | PN ---
PROGRESS NOTE DATE OF SERVICE: 09/19/2022 SUBJECTIVE: This is an 86-year-old woman, who was admitted with COPD exacerbation and pneumonia, is being closely monitored. No chest pain. No palpitations. No fever. PHYSICAL EXAMINATION: VITAL SIGNS: Pulse 79, blood pressure ntd respirations 16. HEENT: Conjunctivae normal. NECK: No JVD. CARDIOVASCULAR: S1, S2. RESPIRATIONS: Breath sounds diminished at the bases. Few scattered rhonchi. ABDOMEN: Soft and nontender. NERVOUS SYSTEM: No focal deficits. LABORATORY DATA: Reviewed. Sodium 135. Troponin 0.05. ASSESSMENT: 1. Chronic obstructive pulmonary disease acute exacerbation. 2. pneumonia. 3. Troponin 0.05, indeterminate. 4. Hypertension. 5. Multiple medical issues. RECOMMENDATIONS: Recommend to continue current management and continue with broad-spectrum IV antibiotics, otherwise closely follow with Pulmonary. We will cut down the IV fluids. See orders for details. Further recommendations to follow. MMODL / IJN: [id number] / MTDD
[2022-09-20] MEDS: PANTOPRAZOLE 40 MG TABLET PO SCH (06:49)
[2022-09-20] MEDS: SYMBICORT 160-4.5 MCG INHALER INHALATION SCH ×2 (08:01→19:25)
[2022-09-20] MEDS: PIPERACILLIN-TAZOBACTAM 3.375 GM in SODIUM CHLORIDE 0.9% 100 ML IVPB SCH ×3 (10:28→23:52)
[2022-09-20] MEDS: amLODIPine 5 MG TAB PO SCH (10:28)
--- NOTE | 2022-09-20 13:02 | P.PN ---
Subjective This is a 86 year old female with a past medical history of hypertension, dyslipidemia, COPD. 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 We have been c onsulted for elevated troponin. She presents with symptoms of generalized weakness. She was diagnosed with Pneumonia. We have been consulted to see the patient for elevated troponins and EKG changes laterally. She denied any chest pain, she denies any shortness of breath or palpitations. Troponins were drawn in the emergency department which revealed 0.06, 0.05, 0.04. WBC was elevated and lactic acid was elevated. She has had no chest pain. Blood pressure 97/52, heart rate 76, afebrile, oxygen saturation is 98% on room air GENERAL: Well-appearing, well-nourished and in no acute distress. NECK: Supple without JVD or thyromegaly. LUNGS: Breath sounds clear to auscultation bilaterally. Respiration equal and unlabored. No wheezes, rales or rhonchi. HEART: Regular rate and rhythm without murmurs, rubs or gallops. S1 and S2 heard. EXTREMITIES: Normal range of motion, no edema. No clubbing or cyanosis. Peripheral pulses intact. ASSESSMENT Elevated troponin, possibly related to type II NSTEMI secondary to pneumonia, rule out cardiac etiology, patient without any chest discomfort History of hypertension Dyslipidemia COPD PLAN Obtain 2D echocardiogram to assess for wall motion abnormalities and LV function Will hold starting aspirin at this time due to she has allergy to aspirin Further recommendations based on clinical course Nurse Practitioner note has been reviewed, I agree with a documented findings and plan of care. Patient was seen and examined. Objective - Vital Signs Vital signs: Vital Signs Temp 98.0 F 09/20/22 08:21 Pulse 82 09/20/22 08:21 Resp 18 09/20/22 08:21 BP 110/57 09/20/22 08:21 Pulse Ox 97 09/20/22 08:21 FiO2 Intake & Output 09/19/22 09/20/22 09/20/22 18:59 06:59 18:59 Intake Total 100 Output Total 800 Balance -700 Intake: Oral 100 Output: Urine 800 Other: Voiding Method Bedside Commode Bedside Commode Bedpan Bedpan # Voids 1 1 # Bowel Movements 1 1 - Labs CBC & Chem 7: 09/19/22 09:02 09/19/22 09:02 Labs: Abnormal Lab Results - Last 24 Hours (Table) 09/19/22 09/19/22 09/19/22 Range/Units 09:02 09:02 14:14 Hgb 11.2 L (11.4-16.0) gm/dL RDW 16.6 H (11.5-15.5) % Lymphocytes # 0.7 L (1.0-4.8) k/uL Sodium 135 L (137-145) mmol/L Potassium 3.4 L (3.5-5.1) mmol/L Chloride 108 H (98-107) mmol/L Carbon Dioxide 20 L (22-30) mmol/L BUN 22 H (7-17) mg/dL Calcium 6.9 L (8.4-10.2) mg/dL Troponin I 0.054 H* (0.000-0.034) ng/mL C-Reactive Protein (<1.0) mg/dL 09/19/22 09/20/22 Range/Units 20:04 07:20 Hgb (11.4-16.0) gm/dL RDW (11.5-15.5) % Lymphocytes # (1.0-4.8) k/uL Sodium (137-145) mmol/L Potassium (3.5-5.1) mmol/L Chloride (98-107) mmol/L Carbon Dioxide (22-30) mmol/L BUN (7-17) mg/dL Calcium (8.4-10.2) mg/dL Troponin I 0.048 H* (0.000-0.034) ng/mL C-Reactive Protein 5.9 H (<1.0) mg/dL Microbiology - Last 24 Hours (Table) 09/18/22 13:00 Blood Culture - Preliminary Blood No Growth after 24 hours 09/18/22 13:15 Blood Culture - Preliminary Blood No Growth after 24 hours
[2022-09-20] MEDS ORDERED: IPRATROPIUM-ALBUTEROL 3 ML NEB INHALATION PRN (13:24)
--- NOTE | 2022-09-20 13:24 | P.PN ---
Subjective Progress Note Date: 09/20/22 Principal diagnosis: Pneumonia. This is an 86-year-old female seen by Dr. Sandoval on consultation back on 09/02/22, patient was seen for Pseudomonas pneumonia, and underlying COPD exacerbation. Patient was treated with proper antibiotics, her sputum was positive for Pseudomonas aeruginosa, patient was eventually discharged home on proper antibiotics. She was discharged on 09/06. Patient is also known to have history of lung CVA, involving left upper lobe and she had previous SB RT. This time the patient came in with similar symptoms including few days history of cough, cough is productive with yellow phlegm, chills but no fever, intermittent cough and wheezing. CT of the chest continued to show consolidation in the anterior segment of the left upper lobe also in the right posterior lung base. Patient had also underlying COPD and pulmonary fibrosis. Considering her symptoms, patient was admitted and this consult was initiated. Her WBC count is 8.7 her electrolytes are relatively normal renal profile is normal, pro- calcitonin level is pending. Patient did have abnormal urinalysis suggestive of acute urinary tract infection although the patient has no symptoms of UTI Progress note dated 09/20/2022. 86-year-old female seen by my partner yesterday in consultation. I saw her earlier in August, for Pseudomonas pneumonia and COPD exacerbation. She was discharged from the hospital on September 06, and does have a history of lung cancer, involving the left upper lobe, status post stereotactic body radiotherapy. The patient was readmitted with complaints of cough, yellow phlegm production, chills, and shortness of breath. CT of the chest continued to show consolidation in the anterior segment of the left upper lobe in the posterior lung base on the right. He was admitted with a diagnosis of pneumonia. White count 8.7, hemoglobin 11.2, hematocrit 35.2, platelet count 254,000. Sodium 135, potassium 3.4, chlorides 108, CO2 20, BUN 22, creatinine 0.87. The urine was yellow and cloudy, and there was a small amount of blood. Nitrite was negative. Leukocyte esterase was large positive. There were 53 WBCs, rare WBC clumps, and rare bacteria. Objective - Vital Signs Vital signs: Vital Signs Temp 98.4 F 09/20/22 11:52 Pulse 81 09/20/22 11:52 Resp 16 09/20/22 11:52 BP 105/55 09/20/22 11:52 Pulse Ox 95 09/20/22 11:52 FiO2 Intake & Output 09/19/22 09/20/22 09/20/22 18:59 06:59 18:59 Intake Total 100 Output Total 800 Balance -700 Weight 50.802 kg Intake: Oral 100 Output: Urine 800 Other: Voiding Method Bedside Commode Bedside Commode Bedside Commode Bedpan Bedpan Bedpan # Voids 1 1 # Bowel Movements 1 1 - Exam No acute distress, oriented 3. Currently not on any supplemental oxygen. No obvious distress. No use of accessory muscles. HEENT examination is grossly unremarkable. Neck supple. Full range of motion. No adenopathy thyromegaly or neck vein distention. Cardiovascular examination reveals regular rhythm rate. S1-S2 normal. No S3 or S4. No discernible murmur noted. Heart rate 81 bpm. Lungs reveal scattered bilateral diffuse rhonchi and expiratory wheezes. No crackles. Breath sounds equal bilaterally but diminished her out. Room air saturation 95%. Abdomen soft bowel sounds are heard. No masses or tenderness. Extremities are intact. No cyanosis clubbing or edema. Skin is without rash or lesion. Neurologic examination is brief but nonfocal. - Labs CBC & Chem 7: 09/19/22 09:02 09/19/22 09:02 Labs: Abnormal Lab Results - Last 24 Hours (Table) 09/19/22 09/19/22 09/20/22 Range/Units 14:14 20:04 07:20 Troponin I 0.054 H* 0.048 H* (0.000-0.034) ng/mL C-Reactive Protein (<1.0) mg/dL Procalcitonin 0.29 H (0.02-0.09) ng/mL 09/20/22 Range/Units 07:20 Troponin I (0.000-0.034) ng/mL C-Reactive Protein 5.9 H (<1.0) mg/dL Procalcitonin (0.02-0.09) ng/mL Microbiology - Last 24 Hours (Table) 09/18/22 13:00 Blood Culture - Preliminary Blood No Growth after 24 hours 09/18/22 13:15 Blood Culture - Preliminary Blood No Growth after 24 hours Assessment and Plan Assessment: Acute exacerbation of COPD, complicated by bilateral pneumonia. Recent history of admission for pseudomonas aeruginosa pneumonia. Chronic fibrotic changes, left upper lobe, from previous stereotactic body radiotherapy, for lung malignancy. Hypertension. Previous history of heavy tobacco use. Hyperlipidemia. History of gastroesophageal reflux disease. Plan: Plan dated 09/20/2022. The patient continues on Symbicort, Zosyn, and albuterol updrafts. The patient also continues on GI prophylaxis with Protonix. We will continue to follow make recommendations along the way. We might consider bronchoscopy down the line should the patient not improve. We will continue to follow the patient. Prognosis is guarded. Time with Patient: Less than 30
[2022-09-20] MEDS: SODIUM CHLORIDE 0.9% 1,000 ML IV SCH (14:19)
[2022-09-20] MEDS: IPRATROPIUM-ALBUTEROL 3 ML NEB INHALATION SCH ×2 (17:06→19:25)
--- NOTE | 2022-09-20 17:58 | CA ---
Transthoracic Echo Report Name: Patricia Oh Age: 86 Gender: F : 1935 Exam Date: 09/20/2022 10:43 Exam Location: [facility] Ht (in): 66 Wt (lb): 112 Ordering Physician: Kavitha Mccabe Attending/Referring Phys: Flight/Transport Nurse Precious Stanford RDCS Procedure CPT: Indications: positive trops Cardiac Hx: limited study Technical Quality: Fair Contrast 1: Total Dose (mL): Contrast 2: Total Dose (mL): MEASUREMENTS (Male / Female) Normal Values DOPPLER TR Peak Velocity 270.8 cm/s TR Peak Gradient 29.3 mmHg Right Ventricular Systolic Press 34.3 mmHg FINDINGS Left Ventricle Left ventricular ejection fraction is estimated at 55-60 %. Right Ventricle Right ventricular systolic pressure within normal limits. Right Atrium Left Atrium Mitral Valve Mitral annular calcification. Mild mitral regurgitation. Aortic Valve Tricuspid Valve Mild tricuspid regurgitation. Pulmonic Valve Pulmonic valve not well visualized. Pericardium Normal pericardium. Aorta CONCLUSIONS Normal LV systolic function Previewed by: Dr. Chris Tolentino MD (Electronically Signed) Final Date: 20 September 2022 17:57
[2022-09-20] MEDS: ATORVASTATIN 10 MG TAB PO SCH (20:36)
[2022-09-21] MEDS ORDERED: SODIUM CHLORIDE 0.9% 500 ML 500 ML IV ONE (04:17)
--- NOTE | 2022-09-21 05:54 | PN ---
PROGRESS NOTE DATE OF SERVICE: 09/20/2022 SUBJECTIVE: This is an 86-year-old woman, who was admitted with left upper lobe pneumonia, also had history of recurrent pneumonia. The patient will be closely monitored. No chest pain. No palpitations. No fever. OBJECTIVE: VITAL SIGNS: Pulse is 82, blood pressure , respirations 18. CHEST: A few scattered rhonchi. ABDOMEN: Soft. NERVOUS SYSTEM: Diffusely weak. LABS: Reviewed. Troponin 0.048. ASSESSMENT: 1. Left upper lobe pneumonia. 2. History of recurrent pneumonia. 3. Hypertension. 4. Hyperlipidemia. 5. Multiple medical issues. RECOMMENDATIONS: Recommend to continue current management and continue with antibiotics. Follow closely with multiple consultants. Prognosis is guarded because of the multiple complex medical issues. Further recommendations to follow. MMODL / IJN: [id number] /
[2022-09-21] MEDS: PANTOPRAZOLE 40 MG TABLET PO SCH (06:10)
[2022-09-21] MEDS: SYMBICORT 160-4.5 MCG INHALER INHALATION SCH ×2 (07:39→20:13)
[2022-09-21] MEDS: IPRATROPIUM-ALBUTEROL 3 ML NEB INHALATION SCH ×4 (07:39→20:13)
[2022-09-21 09:02] LABS: Anisocytosis Slight; Basophils % (A) 0 %; Eosinophils # (A) 0.1 k/uL (0-0.7); Eosinophils % (A) 1 %; HGB 12.2 gm/dL (11.4-16.0); Lymphocytes # (A) 1.4 k/uL (1.0-4.8); Lymphocytes % (A) 15 %; MCH 28.1 pg (25.0-35.0); MCV 85.3 fL (80.0-100.0); Mean Platelet Volume 8.2; Monocytes # (A) 0.3 k/uL (0-1.0); Monocytes % (A) 3 %; Neutrophils # (A) 7.6 k/uL (1.3-7.7); Neutrophils % (A) 80 %; Platelet Count 151 k/uL (150-450); RBC 4.33 m/uL (3.80-5.40); RDW 16.7 % (11.5-15.5); WBC 9.5 k/uL (3.8-10.6)
[2022-09-21] MEDS: PIPERACILLIN-TAZOBACTAM 3.375 GM in SODIUM CHLORIDE 0.9% 100 ML IVPB SCH ×2 (09:51→16:55)
[2022-09-21 09:54] LABS: Calcium 7.3 mg/dL (8.4-10.2); Potassium 3.9 mmol/L (3.5-5.1)
--- NOTE | 2022-09-21 11:04 | P.PN ---
Subjective This is a 86 year old female with a past medical history of hypertension, dyslipidemia, COPD. 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 We have been c onsulted for elevated troponin. She presents with symptoms of generalized weakness. She was diagnosed with Pneumonia. We have been consulted to see the patient for elevated troponins and EKG changes laterally. She denied any chest pain, she denies any shortness of breath or palpitations. Troponins were drawn in the emergency department which revealed 0.06, 0.05, 0.04. WBC was elevated and lactic acid was elevated. She has had no chest pain. Echocardiogram revealed an EF of 5560 percent, no reported wall motion abnormalities. Patient denies any complaints. Denies any chest pain or shortn ess of breath. She has had low BPs and is on amlodipine. Blood pressure 96/48, heart rate 89, afebrile oxygen saturation is 95% on room air GENERAL: Well-appearing, well-nourished and in no acute distress. NECK: Supple without JVD or thyromegaly. LUNGS: Breath sounds clear to auscultation bilaterally. Respiration equal and unlabored. No wheezes, rales or rhonchi. HEART: Regular rate and rhythm without murmurs, rubs or gallops. S1 and S2 heard. EXTREMITIES: Normal range of motion, no edema. No clubbing or cyanosis. Peripheral pulses intact. ASSESSMENT Elevated troponin, possibly related to type II NSTEMI secondary to pneumonia, rule out cardiac etiology, patient without any chest discomfort Hypotension History of hypertension Dyslipidemia COPD PLAN Recommend discontinuing amlodipine due to hypotension Will hold starting aspirin at this time due to she has allergy to aspirin Continue statin From cardiology perspective, no further inpatient workup at this time. We will follow the patient as needed. Please reconsult if needed. Nurse Practitioner note has been reviewed, I agree with a documented findings and plan of care. Patient was seen and examined. Objective - Vital Signs Vital signs: Vital Signs Temp 97.7 F 09/21/22 07:40 Pulse 81 09/21/22 10:56 Resp 16 09/21/22 07:40 BP 96/48 09/21/22 07:40 Pulse Ox 95 09/21/22 07:41 FiO2 Intake & Output 09/20/22 09/21/22 09/21/22 18:59 06:59 18:59 Intake Total 894 1350 531 Balance 894 1350 531 Weight 50.802 kg 48 kg Intake: Intake, IV Titration 800 Amount Piperacillin-Tazobactam 3 100 .375 gm In Sodium Chloride 0.9% 100 ml @ 25 mls/hr IVPB Q8HR [facility] Rx# :[id number] Sodium Chloride 0.9% 1, 200 000 ml @ 20 mls/hr IV . Q24H [facility] Rx#:[id number] Sodium Chloride 0.9% 500 500 ml 500 ml @ 999 mls/hr IV .Q31M [facility] Rx#:[id number] Oral [phone] Other: Voiding Method Bedside Commode Bedside Commode Bedside Commode Bedpan # Voids 2 2 # Bowel Movements 0 - Labs CBC & Chem 7: 09/21/22 08:28 09/21/22 08:28 Labs: Abnormal Lab Results - Last 24 Hours (Table) 09/20/22 09/21/22 09/21/22 Range/Units 07:20 08:28 08:28 RDW 16.7 H (11.5-15.5) % Sodium 133 L (137-145) mmol/L Glucose 114 H (74-99) mg/dL Calcium 7.3 L (8.4-10.2) mg/dL Procalcitonin 0.29 H (0.02-0.09) ng/mL Microbiology - Last 24 Hours (Table) 09/18/22 13:00 Blood Culture - Preliminary Blood No Growth after 48 hours 09/18/22 13:15 Blood Culture - Preliminary Blood No Growth after 48 hours
[2022-09-21] MEDS: SODIUM CHLORIDE 0.9% 1,000 ML IV SCH (13:12)
--- NOTE | 2022-09-21 14:09 | P.PN ---
Subjective Progress Note Date: 09/21/22 Principal diagnosis: Pneumonia. This is an 86-year-old female seen by Dr. Sandoval on consultation back on 09/02/22, patient was seen for Pseudomonas pneumonia, and underlying COPD exacerbation. Patient was treated with proper antibiotics, her sputum was positive for Pseudomonas aeruginosa, patient was eventually discharged home on proper antibiotics. She was discharged on 09/06. Patient is also known to have history of lung CVA, involving left upper lobe and she had previous SB RT. This time the patient came in with similar symptoms including few days history of cough, cough is productive with yellow phlegm, chills but no fever, intermittent cough and wheezing. CT of the chest continued to show consolidation in the anterior segment of the left upper lobe also in the right posterior lung base. Patient had also underlying COPD and pulmonary fibrosis. Considering her symptoms, patient was admitted and this consult was initiated. Her WBC count is 8.7 her electrolytes are relatively normal renal profile is normal, pro- calcitonin level is pending. Patient did have abnormal urinalysis suggestive of acute urinary tract infection although the patient has no symptoms of UTI Progress note dated 09/20/2022. 86-year-old female seen by my partner yesterday in consultation. I saw her earlier in August, for Pseudomonas pneumonia and COPD exacerbation. She was discharged from the hospital on September 06, and does have a history of lung cancer, involving the left upper lobe, status post stereotactic body radiotherapy. The patient was readmitted with complaints of cough, yellow phlegm production, chills, and shortness of breath. CT of the chest continued to show consolidation in the anterior segment of the left upper lobe in the posterior lung base on the right. He was admitted with a diagnosis of pneumonia. White count 8.7, hemoglobin 11.2, hematocrit 35.2, platelet count 254,000. Sodium 135, potassium 3.4, chlorides 108, CO2 20, BUN 22, creatinine 0.87. The urine was yellow and cloudy, and there was a small amount of blood. Nitrite was negative. Leukocyte esterase was large positive. There were 53 WBCs, rare WBC clumps, and rare bacteria. Progress note dated 09/21/2022. 86-year-old female, well-known to our service. She's had a recent admission to the hospital for pneumonia, and COPD exacerbation. She was seen in consultation over the week and by my partner. She is seen again in room 360. She is feeling a bit better today. Labs today include a white count of 9.5, hemoglobin 12.2, hematocrit 37, and a platelet count of 251,000. Sodium 133, potassium 3.9, chlorides 103, CO2 23, BUN 12, creatinine 0.77. Pro-calcitonin level is 0.29. Blood cultures are currently negative. We did speak to the patient today about possible bronchoscopy as the week progresses, if she does not improve, and we also discussed this with the patient's son. Objective - Vital Signs Vital signs: Vital Signs Temp 97.9 F 09/21/22 13:14 Pulse 92 09/21/22 13:14 Resp 16 09/21/22 13:14 BP 113/67 09/21/22 13:14 Pulse Ox 96 09/21/22 13:14 FiO2 Intake & Output 09/20/22 09/21/22 09/21/22 18:59 06:59 18:59 Intake Total 894 1350 531 Balance 894 1350 531 Weight 50.802 kg 48 kg Intake: Intake, IV Titration 800 Amount Piperacillin-Tazobactam 3 100 .375 gm In Sodium Chloride 0.9% 100 ml @ 25 mls/hr IVPB Q8HR [facility] Rx# :[id number] Sodium Chloride 0.9% 1, 200 000 ml @ 20 mls/hr IV . Q24H [facility] Rx#:[id number] Sodium Chloride 0.9% 500 500 ml 500 ml @ 999 mls/hr IV .Q31M [facility] Rx#:[id number] Oral [phone] Other: Voiding Method Bedside Commode Bedside Commode Bedside Commode Bedpan # Voids 2 2 1 # Bowel Movements 0 - Exam No acute distress, oriented 3. Currently not on any supplemental oxygen. No obvious distress. No use of accessory muscles. HEENT examination is grossly unremarkable. Neck supple. Full range of motion. No adenopathy thyromegaly or neck vein distention. Cardiovascular examination reveals regular rhythm rate. S1-S2 normal. No S3 or S4. No discernible murmur noted. Heart rate 92 bpm. Lungs reveal scattered bilateral diffuse rhonchi and expiratory wheezes. No crackles. Breath sounds equal bilaterally but diminished her out. Room air saturation 96 %. Abdomen soft bowel sounds are heard. No masses or tenderness. Extremities are intact. No cyanosis clubbing or edema. Skin is without rash or lesion. Neurologic examination is brief but nonfocal. - Labs CBC & Chem 7: 09/21/22 08:28 09/21/22 08:28 Labs: Abnormal Lab Results - Last 24 Hours (Table) 09/21/22 09/21/22 Range/Units 08:28 08:28 RDW 16.7 H (11.5-15.5) % Sodium 133 L (137-145) mmol/L Glucose 114 H (74-99) mg/dL Calcium 7.3 L (8.4-10.2) mg/dL Microbiology - Last 24 Hours (Table) 09/18/22 13:00 Blood Culture - Preliminary Blood No Growth after 48 hours 09/18/22 13:15 Blood Culture - Preliminary Blood No Growth after 48 hours Assessment and Plan Assessment: Acute exacerbation of COPD, complicated by bilateral pneumonia. Recent history of admission for pseudomonas aeruginosa pneumonia. Chronic fibrotic changes, left upper lobe, from previous stereotactic body radiotherapy, for lung malignancy. Hypertension. Previous history of heavy tobacco use. Hyperlipidemia. History of gastroesophageal reflux disease. Plan: Plan dated 09/20/2022. The patient continues on Symbicort, Zosyn, and albuterol updrafts. The patient also continues on GI prophylaxis with Protonix. We will continue to follow make recommendations along the way. We might consider bronchoscopy down the line should the patient not improve. We will continue to follow the patient. Prognosis is guarded. Plan dated 09/21/2022. The patient continues on albuterol sulfate, and ipratropium bromide breathing treatments. In addition, the patient is on Symbicort 160/4.5, 2 puffs twice a day. The patient's also getting Zosyn, as well as Lipitor, subcu heparin, and Protonix. We will continue to follow the patient closely. If the patient does not show improvement over the next day or so, we might consider bronchoscopy by the end of the week. Additional recommendations and suggestions are forthcoming. Prognosis is guarded. We discussed bronchoscopy today with the patient, and the patient's son. Time with Patient: Less than 30
[2022-09-21] MEDS: HEPARIN SODIUM,PORCINE/PF 5,000 UNIT/0.5 ML SYRINGE SQ SCH (16:55)
[2022-09-21] MEDS: ATORVASTATIN 10 MG TAB PO SCH (20:05)
[2022-09-22] MEDS: HEPARIN SODIUM,PORCINE/PF 5,000 UNIT/0.5 ML SYRINGE SQ SCH ×4 (00:47→23:57)
[2022-09-22] MEDS: PIPERACILLIN-TAZOBACTAM 3.375 GM in SODIUM CHLORIDE 0.9% 100 ML IVPB SCH ×4 (00:47→23:56)
[2022-09-22] MEDS: PANTOPRAZOLE 40 MG TABLET PO SCH (06:36)
--- NOTE | 2022-09-22 07:47 | XR ---
EXAMINATION TYPE: XR chest 1V portable DATE OF EXAM: 09/22/2022 COMPARISON: 09/19/2022 INDICATION: Pneumonia TECHNIQUE: Frontal projection of the chest is obtained. FINDINGS: The heart size is normal. The pulmonary vasculature is normal. There is an infiltrate adjacent to the aortopulmonic window and left suprahilar region. This is funez ing from comparison. Correlate for pneumonia. Underlying mass is not excluded. Follow-up is recommend ed. IMPRESSION: 1. Left suprahilar infiltrate follow-up for pneumonia is recommended.
[2022-09-22] MEDS: IPRATROPIUM-ALBUTEROL 3 ML NEB INHALATION SCH ×4 (08:18→20:48)
[2022-09-22] MEDS: SYMBICORT 160-4.5 MCG INHALER INHALATION SCH ×2 (08:19→20:49)
--- NOTE | 2022-09-22 12:13 | P.PN ---
Subjective Progress Note Date: 09/20/22 Principal diagnosis: Pneumoia and UTI Patient is 86-year old female with a past medical history significant for COPD recent admission to the hospital with a pneumonia sputum was positive for Pseudomonas discharged on Cipro presenting back to the hospital with cough shortness of breath patient did have a CT of the chest with consolidation left upper lobe and right posterior lung. On today's evaluation that is 09/20/2022 the patient denies having any fever or any chills, the patient is currently breathing comfortably room air he denies having any chest pain she did have a cough with occasional sputum no hemoptysis no abdominal pain no diarrhea Objective - Vital Signs Vital signs: Vital Signs Temp 98.0 F 09/20/22 08:21 Pulse 82 09/20/22 08:21 Resp 18 09/20/22 08:21 BP 110/57 09/20/22 08:21 Pulse Ox 97 09/20/22 08:21 FiO2 Intake & Output 09/19/22 09/20/22 09/20/22 18:59 06:59 18:59 Intake Total 100 Output Total 800 Balance -700 Weight 50.802 kg Intake: Oral 100 Output: Urine 800 Other: Voiding Method Bedside Commode Bedside Commode Bedpan Bedpan # Voids 1 1 # Bowel Movements 1 1 - Exam GENERAL DESCRIPTION elderly female lying in bed, no distress. No tachypnea or accessory muscle of respiration use. LUNGS: Unlabored breathing. Decreased breath sound the base HEART: S1, S2, regular rate and rhythm. No loud murmur ABDOMEN: Soft, no tenderness , guarding or rigidity, no organomegaly EXTREMITIES: No edema of feet. - Labs CBC & Chem 7: 09/21/22 08:28 09/21/22 08:28 Labs: Abnormal Lab Results - Last 24 Hours (Table) 09/19/22 09/19/22 09/20/22 Range/Units 14:14 20:04 07:20 Troponin I 0.054 H* 0.048 H* (0.000-0.034) ng/mL C-Reactive Protein 5.9 H (<1.0) mg/dL Microbiology - Last 24 Hours (Table) 09/18/22 13:00 Blood Culture - Preliminary Blood No Growth after 24 hours 09/18/22 13:15 Blood Culture - Preliminary Blood No Growth after 24 hours Assessment and Plan (1) Pneumonia Current Visit: Yes Status: Acute Code(s): J18.9 - PNEUMONIA, UNSPECIFIED ORGANISM SNOMED Code(s): 586446947 (2) UTI (urinary tract infection) Current Visit: No Status: Acute Code(s): N39.0 - URINARY TRACT INFECTION, SITE NOT SPECIFIED SNOMED Code(s): 43091800 Plan: 1patient with history of COPD recent admission to the hospital about 2 weeks ago and the patient was treated for pneumonia patient noticed to have a significant consolidation in the left upper lobe and right posterior lung on this admission with a previous sputum positive for Pseudomonas concern for possible incomplete resolution of episode of pneumonia. 2 The patient did have a elevated CRP and procalcitonin sputum has not been collected 3PT to continue with Zosyn while waiting for the culture to finalize. Time with Patient: Less than 30
--- NOTE | 2022-09-22 12:14 | P.PN ---
Subjective Progress Note Date: 09/21/22 Principal diagnosis: Pneumoia and UTI Patient is 86-year old female with a past medical history significant for COPD recent admission to the hospital with a pneumonia sputum was positive for Pseudomonas discharged on Cipro presenting back to the hospital with cough shortness of breath patient did have a CT of the chest with consolidation left upper lobe and right posterior lung. On today's evaluation that is 09/21/2022, the patient remains to be afebrile, the patient is breathing comfortably on room air the patient denies chest pain the patient continue to have a cough however has decreased intensity mostly dry in nature he denies having abdominal pain and no diarrhea Objective - Vital Signs Vital signs: Vital Signs Temp 97.7 F 09/21/22 16:00 Pulse 90 09/21/22 16:03 Resp 16 09/21/22 16:00 BP 105/54 09/21/22 16:00 Pulse Ox 97 09/21/22 16:00 FiO2 Intake & Output 09/20/22 09/21/22 09/21/22 18:59 06:59 18:59 Intake Total 894 1350 1491 Balance 894 1350 1491 Weight 50.802 kg 48 kg Intake: Intake, IV Titration 800 Amount Piperacillin-Tazobactam 3 100 .375 gm In Sodium Chloride 0.9% 100 ml @ 25 mls/hr IVPB Q8HR [facility] Rx# :[id number] Sodium Chloride 0.9% 1, 200 000 ml @ 20 mls/hr IV . Q24H [facility] Rx#:[id number] Sodium Chloride 0.9% 500 500 ml 500 ml @ 999 mls/hr IV .Q31M [facility] Rx#:[id number] Oral [phone] Other: Voiding Method Bedside Commode Bedside Commode Bedside Commode Bedpan # Voids 2 2 1 # Bowel Movements 0 - Exam GENERAL DESCRIPTION elderly female lying in bed, no distress. No tachypnea or accessory muscle of respiration use. LUNGS: Unlabored breathing. Decreased breath sound the base HEART: S1, S2, regular rate and rhythm. No loud murmur ABDOMEN: Soft, no tenderness , guarding or rigidity, no organomegaly EXTREMITIES: No edema of feet. - Labs CBC & Chem 7: 09/21/22 08:28 09/21/22 08:28 Labs: Abnormal Lab Results - Last 24 Hours (Table) 09/21/22 09/21/22 Range/Units 08:28 08:28 RDW 16.7 H (11.5-15.5) % Sodium 133 L (137-145) mmol/L Glucose 114 H (74-99) mg/dL Calcium 7.3 L (8.4-10.2) mg/dL Microbiology - Last 24 Hours (Table) 09/18/22 13:00 Blood Culture - Preliminary Blood No Growth after 72 hours 09/18/22 13:15 Blood Culture - Preliminary Blood No Growth after 72 hours Assessment and Plan (1) Pneumonia Current Visit: Yes Status: Acute Code(s): J18.9 - PNEUMONIA, UNSPECIFIED ORGANISM SNOMED Code(s): 838158793 Plan: 1patient with history of COPD recent admission to the hospital about 2 weeks ago and the patient was treated for pneumonia patient noticed to have a significant consolidation in the left upper lobe and right posterior lung on this admission with a previous sputum positive for Pseudomonas concern for possible incomplete resolution of episode of pneumonia. 2 The patient did have a elevated CRP and procalcitonin, RN has been instructed to obtain a sputum for gram stain and culture. 3patient will continue with Zosyn in view of clinical response while waiting for the culture to finalize Time with Patient: Less than 30
--- NOTE | 2022-09-22 13:58 | P.PN ---
Subjective Progress Note Date: 09/22/22 Principal diagnosis: Pneumonia. This is an 86-year-old female seen by Dr. Sandoval on consultation back on 09/02/22, patient was seen for Pseudomonas pneumonia, and underlying COPD exacerbation. Patient was treated with proper antibiotics, her sputum was positive for Pseudomonas aeruginosa, patient was eventually discharged home on proper antibiotics. She was discharged on 09/06. Patient is also known to have history of lung CVA, involving left upper lobe and she had previous SB RT. This time the patient came in with similar symptoms including few days history of cough, cough is productive with yellow phlegm, chills but no fever, intermittent cough and wheezing. CT of the chest continued to show consolidation in the anterior segment of the left upper lobe also in the right posterior lung base. Patient had also underlying COPD and pulmonary fibrosis. Considering her symptoms, patient was admitted and this consult was initiated. Her WBC count is 8.7 her electrolytes are relatively normal renal profile is normal, pro- calcitonin level is pending. Patient did have abnormal urinalysis suggestive of acute urinary tract infection although the patient has no symptoms of UTI Progress note dated 09/20/2022. 86-year-old female seen by my partner yesterday in consultation. I saw her earlier in August, for Pseudomonas pneumonia and COPD exacerbation. She was discharged from the hospital on September 06, and does have a history of lung cancer, involving the left upper lobe, status post stereotactic body radiotherapy. The patient was readmitted with complaints of cough, yellow phlegm production, chills, and shortness of breath. CT of the chest continued to show consolidation in the anterior segment of the left upper lobe in the posterior lung base on the right. He was admitted with a diagnosis of pneumonia. White count 8.7, hemoglobin 11.2, hematocrit 35.2, platelet count 254,000. Sodium 135, potassium 3.4, chlorides 108, CO2 20, BUN 22, creatinine 0.87. The urine was yellow and cloudy, and there was a small amount of blood. Nitrite was negative. Leukocyte esterase was large positive. There were 53 WBCs, rare WBC clumps, and rare bacteria. Progress note dated 09/21/2022. 86-year-old female, well-known to our service. She's had a recent admission to the hospital for pneumonia, and COPD exacerbation. She was seen in consultation over the week and by my partner. She is seen again in room 360. She is feeling a bit better today. Labs today include a white count of 9.5, hemoglobin 12.2, hematocrit 37, and a platelet count of 251,000. Sodium 133, potassium 3.9, chlorides 103, CO2 23, BUN 12, creatinine 0.77. Pro-calcitonin level is 0.29. Blood cultures are currently negative. We did speak to the patient today about possible bronchoscopy as the week progresses, if she does not improve, and we also discussed this with the patient's son. Progress note dated 09/22/2022. 86-year-old female seen today in room 360. She is feeling better. She was able to provide a sputum sample. Her cough is less congested. We did speak to her about the possibility of bronchoscopy and BAL, should she not improve. She currently not receiving any IV fluids. She is currently on room air. No new laboratory data today. Blood and sputum cultures are thus far negative. Chest x-ray shows a infiltrate, and the left suprahilar area. Objective - Vital Signs Vital signs: Vital Signs Temp 98.3 F 09/22/22 08:00 Pulse 98 09/22/22 12:00 Resp 16 09/22/22 12:00 BP 137/59 09/22/22 12:00 Pulse Ox 92 L 09/22/22 12:00 FiO2 Intake & Output 09/21/22 09/22/22 09/22/22 18:59 06:59 18:59 Intake Total 1491 1020 360 Output Total 650 1 Balance 1491 370 359 Weight 48.2 kg Intake: Intake, IV Titration 300 Amount Piperacillin-Tazobactam 3 100 .375 gm In Sodium Chloride 0.9% 100 ml @ 25 mls/hr IVPB Q8HR [facility] Rx# :[id number] Sodium Chloride 0.9% 1, 200 000 ml @ 20 mls/hr IV . Q24H [facility] Rx#:[id number] Oral 1491 720 360 Output: Urine 650 1 Other: Voiding Method Bedside Commode Bedside Commode Bedside Commode # Voids 1 3 1 # Bowel Movements 1 - Exam No acute distress, oriented 3. Currently not on any supplemental oxygen. No obvious distress. No use of accessory muscles. HEENT examination is grossly unremarkable. Neck supple. Full range of motion. No adenopathy thyromegaly or neck vein distention. Cardiovascular examination reveals regular rhythm rate. S1-S2 normal. No S3 or S4. No discernible murmur noted. Heart rate 98 bpm. Lungs reveal scattered bilateral diffuse rhonchi and expiratory wheezes. No crackles. Breath sounds equal bilaterally but diminished her out. Room air saturation 95 %. Abdomen soft bowel sounds are heard. No masses or tenderness. Extremities are intact. No cyanosis clubbing or edema. Skin is without rash or lesion. Neurologic examination is brief but nonfocal. - Labs CBC & Chem 7: 09/21/22 08:28 09/21/22 08:28 Labs: Microbiology - Last 24 Hours (Table) 09/22/22 08:45 Sputum Culture - Preliminary Sputum 09/18/22 13:00 Blood Culture - Preliminary Blood No Growth after 72 hours 09/18/22 13:15 Blood Culture - Preliminary Blood No Growth after 72 hours Assessment and Plan Assessment: Acute exacerbation of COPD, complicated by pneumonia. Recent history of admission for pseudomonas aeruginosa pneumonia. Chronic fibrotic changes, left upper lobe, from previous stereotactic body radiotherapy, for lung malignancy. Hypertension. Previous history of heavy tobacco use. Hyperlipidemia. History of gastroesophageal reflux disease. Plan: Plan dated 09/20/2022. The patient continues on Symbicort, Zosyn, and albuterol updrafts. The patient also continues on GI prophylaxis with Protonix. We will continue to follow make recommendations along the way. We might consider bronchoscopy down the line should the patient not improve. We will continue to follow the patient. Prognosis is guarded. Plan dated 09/21/2022. The patient continues on albuterol sulfate, and ipratropium bromide breathing treatments. In addition, the patient is on Symbicort 160/4.5, 2 puffs twice a day. The patient's also getting Zosyn, as well as Lipitor, subcu heparin, and Protonix. We will continue to follow the patient closely. If the patient does not show improvement over the next day or so, we might consider bronchoscopy by the end of the week. Additional recommendations and suggestions are forthcoming. Prognosis is guarded. We discussed bronchoscopy today with the patient, and the patient's son. Plan dated 09/22/2022. The patient appears to be doing better. She was able to provide a sputum sample to the laboratory. The patient's on room air. She's not receiving any IV fluids. She continues on Zosyn, Symbicort, as well as albuterol sulfate and ipratropium bromide. Computed tomography scan done early on in this admission showed a consolidation in the anterior segment of the left upper lobe, and also at the right posterior lung base. The more recent chest x-ray shows a left suprahilar infiltrate. We will continue to follow make recommendations. She doesn't really seem excited about undergoing bronchoscopy and BAL. Time with Patient: Less than 30
[2022-09-22 14:59] VITALS: BMI 17.1
[2022-09-22] MEDS: ATORVASTATIN 10 MG TAB PO SCH (19:36)
[2022-09-22] MEDS: SODIUM CHLORIDE 0.9% 1,000 ML IV SCH (19:37)
--- NOTE | 2022-09-23 00:57 | P.PN ---
Subjective Progress Note Date: 09/21/22 Patient is a 86-year-old female was admitted to hospital due to left upper lobe pneumonia. Patient was recently discharged from the hospital on 09/06/2022 and was treated for right lower lobe pneumonia and acute COPD exacerbation. Patient does have history of lung cancer. Status post left SBRT. Sputum cultures were growing Pseudomonas aeruginosa and urine culture showed Enterococcus faecalis at that time. 09/21/2022 Patient is currently resting in the chair. Awake alert and oriented x3. Breathing status is better and cough improved as well. Patient has been afebrile. No nausea vomiting abdominal pain or diarrhea. Denied any dysuria or hematuria. Blood cultures and sputum cultures have been negative so far. Laboratory pressure WBC 10.4 hemoglobin 12.1 platelets 151 Sodium 133 potassium 3.9 chloride 103 bicarb is 23 BUN 12 and creatinine 0.77 and calcium 7.3 and procalcitonin level was 0.29. Patient is being continued on antibiotics in the form of Zosyn. Current medications reviewed. Objective - Vital Signs Vital signs: Vital Signs Temp 97.7 F 09/21/22 16:00 Pulse 82 09/21/22 20:25 Resp 16 09/21/22 16:00 BP 105/54 09/21/22 16:00 Pulse Ox 97 09/21/22 16:00 FiO2 Intake & Output 09/21/22 09/21/22 09/22/22 06:59 18:59 06:59 Intake Total 1350 1491 Balance 1350 1491 Weight 48 kg Intake: Intake, IV Titration 800 Amount Piperacillin-Tazobactam 3 100 .375 gm In Sodium Chloride 0.9% 100 ml @ 25 mls/hr IVPB Q8HR [facility] Rx# :[id number] Sodium Chloride 0.9% 1, 200 000 ml @ 20 mls/hr IV . Q24H [facility] Rx#:[id number] Sodium Chloride 0.9% 500 500 ml 500 ml @ 999 mls/hr IV .Q31M [facility] Rx#:[id number] Oral 550 1491 Other: Voiding Method Bedside Commode Bedside Commode # Voids 2 1 # Bowel Movements 0 - Exam PHYSICAL EXAMINATION: Patient is lying in the bed comfortably, no acute distress, awake alert and oriented.. HEENT: Normocephalic. Neck is supple. Pupils reactive. Nostrils clear. Oral cavity is moist. Neck reveals no JVD, carotid bruits, or thyromegaly. CHEST EXAMINATION: Trachea is central. Symmetrical expansion. Lung arevalo clear to auscultation and percussion. CARDIAC: Normal S1, S2 with no gallops. No murmurs ABDOMEN: Soft. Bowel sounds present. Nontender. No organomegaly. No abdominal bruits. Extremities: reveal no edema. No clubbing or cyanosis Neurologically awake, alert, oriented x3 with well-coordinated movements. No focal deficits noted Skin: No rash or skin lesions. Psychiatric: Coperative. Nonsuicidal, Musculoskeletal: No joint swelling or deformity. Normal range of motion. - Labs CBC & Chem 7: 09/21/22 08:28 09/21/22 08:28 Labs: Abnormal Lab Results - Last 24 Hours (Table) 09/21/22 09/21/22 Range/Units 08:28 08:28 RDW 16.7 H (11.5-15.5) % Sodium 133 L (137-145) mmol/L Glucose 114 H (74-99) mg/dL Calcium 7.3 L (8.4-10.2) mg/dL Microbiology - Last 24 Hours (Table) 09/18/22 13:00 Blood Culture - Preliminary Blood No Growth after 72 hours 09/18/22 13:15 Blood Culture - Preliminary Blood No Growth after 72 hours Assessment and Plan Assessment: Acute bilateral pneumonia Recent admission with Pseudomonas rt lung pneumonia with sputum cultures positive for Pseudomonas. History of lung cancer status post left upper lobe SBRT Hypertension History of smoking Hyperlipidemia GERD DVT prophylaxis Heparin subcu Plan: Patient will be continued antibiotics at home Zosyn. Continue with duo nebs and follow-up sputum cultures and blood cultures have been negative so far. Pul monary is on board. Considering bronchoscopy if does not show much clinical improvement. Current with GI and DVT prophylaxis. Follow-up closely. Time with Patient: Greater than 30
--- NOTE | 2022-09-23 01:00 | P.PN ---
Subjective Progress Note Date: 09/22/22 Patient is a 86-year-old female was admitted to hospital due to left upper lobe pneumonia. Patient was recently discharged from the hospital on 09/06/2022 and was treated for right lower lobe pneumonia and acute COPD exacerbation. Patient does have history of lung cancer. Status post left SBRT. Sputum cultures were growing Pseudomonas aeruginosa and urine culture showed Enterococcus faecalis at that time. 09/21/2022 Patient is currently resting in the chair. Awake alert and oriented x3. Breathing status is better and cough improved as well. Patient has been afebrile. No nausea vomiting abdominal pain or diarrhea. Denied any dysuria or hematuria. Blood cultures and sputum cultures have been negative so far. Laboratory pressure WBC 10.4 hemoglobin 12.1 platelets 151 Sodium 133 potassium 3.9 chloride 103 bicarb is 23 BUN 12 and creatinine 0.77 and calcium 7.3 and procalcitonin level was 0.29. Patient is being continued on antibiotics in the form of Zosyn. 09/22/2022 Patient is currently resting in the bed. Awake alert and oriented x3. Feels better. Denies any worsening shortness of breath. Cough is also improving. Patient is on room air. Blood cultures are negative so far. Pending sputum cultures. Repeat chest x-ray today showed left suprahilar infiltrate follow-up for pneumonia as recommended. 2D echocardiogram showed ejection fraction 55 to 60% and normal right vent ricular systolic pressure. No significant valvular abnormalities noted. Patient denied any nausea vomiting abdominal pain or diarrhea. No chest pain. Afebrile. Current medications reviewed. Objective - Vital Signs Vital signs: Vital Signs Temp 98.0 F 09/22/22 19:35 Pulse 82 09/22/22 20:56 Resp 18 09/22/22 19:35 BP 85/51 09/22/22 19:35 Pulse Ox 93 L 09/22/22 19:35 FiO2 Intake & Output 09/22/22 09/22/22 09/23/22 06:59 18:59 06:59 Intake Total 1020 600 Output Total 650 1 0 Balance 370 599 0 Weight 48.2 kg 48.2 kg Intake: Intake, IV Titration 300 Amount Piperacillin-Tazobactam 3 100 .375 gm In Sodium Chloride 0.9% 100 ml @ 25 mls/hr IVPB Q8HR [facility] Rx# :[id number] Sodium Chloride 0.9% 1, 200 000 ml @ 20 mls/hr IV . Q24H [facility] Rx#:[id number] Oral 720 600 Output: Urine 650 1 0 Other: Voiding Method Bedside Commode Bedside Commode Bedside Commode # Voids 3 1 # Bowel Movements 1 - Exam PHYSICAL EXAMINATION: Patient is lying in the bed comfortably, no acute distress, awake alert and oriented.. HEENT: Normocephalic. Neck is supple. Pupils reactive. Nostrils clear. Oral cavity is moist. Neck reveals no JVD, carotid bruits, or thyromegaly. CHEST EXAMINATION: Trachea is central. Symmetrical expansion.Left upper lobe diminished sounds. Lung arevalo clear to auscultation and percussion. CARDIAC: Normal S1, S2 with no gallops. No murmurs ABDOMEN: Soft. Bowel sounds present. Nontender. No organomegaly. No abdominal bruits. Extremities: reveal no edema. No clubbing or cyanosis Neurologically awake, alert, oriented x3 with well-coordinated movements. No focal deficits noted Skin: No rash or skin lesions. Psychiatric: Coperative. Nonsuicidal, Musculoskeletal: No joint swelling or deformity. Normal range of motion. - Labs CBC & Chem 7: 09/21/22 08:28 09/21/22 08:28 Labs: Microbiology - Last 24 Hours (Table) 09/18/22 13:00 Blood Culture - Preliminary Blood No Growth after 96 hours 09/18/22 13:15 Blood Culture - Preliminary Blood No Growth after 96 hours 09/22/22 08:45 Sputum Culture - Preliminary Sputum Assessment and Plan Assessment: Acute bilateral pneumonia COPD Recent admission with Pseudomonas rt lung pneumonia with sputum cultures positive for Pseudomonas. History of lung cancer status post left upper lobe SBRT Hypertension History of smoking Hyperlipidemia GERD DVT prophylaxis Heparin subcu Plan: Patient will be continued antibiotics at home Zosyn. Continue with duo nebs and follow-up sputum cultures and blood cultures have been negative so far. Keila hendricks is on board. Considering bronchoscopy if does not show much clinical improvement. Current with GI and DVT prophylaxis. Follow-up closely. Time with Patient: Greater than 30
[2022-09-23] MEDS: PANTOPRAZOLE 40 MG TABLET PO SCH (06:35)
[2022-09-23] MEDS: HEPARIN SODIUM,PORCINE/PF 5,000 UNIT/0.5 ML SYRINGE SQ SCH ×2 (08:11→16:49)
[2022-09-23] MEDS: PIPERACILLIN-TAZOBACTAM 3.375 GM in SODIUM CHLORIDE 0.9% 100 ML IVPB SCH ×2 (08:12→16:50)
[2022-09-23] MEDS: IPRATROPIUM-ALBUTEROL 3 ML NEB INHALATION SCH ×4 (08:30→20:26)
[2022-09-23] MEDS: SYMBICORT 160-4.5 MCG INHALER INHALATION SCH ×2 (08:30→20:26)
[2022-09-23 08:46] LABS: Anisocytosis Slight; Basophils % (A) 0 %; Eosinophils # (A) 0.1 k/uL (0-0.7); Eosinophils % (A) 1 %; HCT 36.8 % (34.0-46.0); HGB 11.9 gm/dL (11.4-16.0); Hypochromasia Slight; Lymphocytes # (A) 1.6 k/uL (1.0-4.8); Lymphocytes % (A) 17 %; MCH 28.3 pg (25.0-35.0); MCHC 32.3 g/dL (31.0-37.0); MCV 87.5 fL (80.0-100.0); Monocytes # (A) 0.4 k/uL (0-1.0); Monocytes % (A) 4 %; Neutrophils # (A) 7.1 k/uL (1.3-7.7); Neutrophils % (A) 76 %; Platelet Count 199 k/uL (150-450); RDW 16.3 % (11.5-15.5); WBC 9.3 k/uL (3.8-10.6)
[2022-09-23 08:57] LABS: Calcium 8.4 mg/dL (8.4-10.2); Potassium 3.8 mmol/L (3.5-5.1)
[2022-09-23 09:17] LABS: Glucose,Whole Blood 100 mg/dL (70-110)
--- NOTE | 2022-09-23 13:01 | P.PN ---
Subjective Progress Note Date: 09/23/22 Principal diagnosis: Pneumonia. This is an 86-year-old female seen by Dr. Sandoval on consultation back on 09/02/22, patient was seen for Pseudomonas pneumonia, and underlying COPD exacerbation. Patient was treated with proper antibiotics, her sputum was positive for Pseudomonas aeruginosa, patient was eventually discharged home on proper antibiotics. She was discharged on 09/06. Patient is also known to have history of lung CVA, involving left upper lobe and she had previous SB RT. This time the patient came in with similar symptoms including few days history of cough, cough is productive with yellow phlegm, chills but no fever, intermittent cough and wheezing. CT of the chest continued to show consolidation in the anterior segment of the left upper lobe also in the right posterior lung base. Patient had also underlying COPD and pulmonary fibrosis. Considering her symptoms, patient was admitted and this consult was initiated. Her WBC count is 8.7 her electrolytes are relatively normal renal profile is normal, pro- calcitonin level is pending. Patient did have abnormal urinalysis suggestive of acute urinary tract infection although the patient has no symptoms of UTI Progress note dated 09/20/2022. 86-year-old female seen by my partner yesterday in consultation. I saw her earlier in August, for Pseudomonas pneumonia and COPD exacerbation. She was discharged from the hospital on September 06, and does have a history of lung cancer, involving the left upper lobe, status post stereotactic body radiotherapy. The patient was readmitted with complaints of cough, yellow phlegm production, chills, and shortness of breath. CT of the chest continued to show consolidation in the anterior segment of the left upper lobe in the posterior lung base on the right. He was admitted with a diagnosis of pneumonia. White count 8.7, hemoglobin 11.2, hematocrit 35.2, platelet count 254,000. Sodium 135, potassium 3.4, chlorides 108, CO2 20, BUN 22, creatinine 0.87. The urine was yellow and cloudy, and there was a small amount of blood. Nitrite was negative. Leukocyte esterase was large positive. There were 53 WBCs, rare WBC clumps, and rare bacteria. Progress note dated 09/21/2022. 86-year-old female, well-known to our service. She's had a recent admission to the hospital for pneumonia, and COPD exacerbation. She was seen in consultation over the week and by my partner. She is seen again in room 360. She is feeling a bit better today. Labs today include a white count of 9.5, hemoglobin 12.2, hematocrit 37, and a platelet count of 251,000. Sodium 133, potassium 3.9, chlorides 103, CO2 23, BUN 12, creatinine 0.77. Pro-calcitonin level is 0.29. Blood cultures are currently negative. We did speak to the patient today about possible bronchoscopy as the week progresses, if she does not improve, and we also discussed this with the patient's son. Progress note dated 09/22/2022. 86-year-old female seen today in room 360. She is feeling better. She was able to provide a sputum sample. Her cough is less congested. We did speak to her about the possibility of bronchoscopy and BAL, should she not improve. She currently not receiving any IV fluids. She is currently on room air. No new laboratory data today. Blood and sputum cultures are thus far negative. Chest x-ray shows a infiltrate, and the left suprahilar area. Progress note dated 09/23/2022. 86-year-old female again seen in room 360. She's feeling a bit better, but not back to baseline. The plan is to do bronchoscopy, airway examination, therapeutic lavage, and BAL, tomorrow. I explained the procedure to the patient and the patient's family. They are in agreement. She's currently on room air. She's not receiving any IV fluids. She'll be nothing by mouth after midnight. We'll make sure that there is a consent on the chart. White count 9.3, hemog lobin 11.9, hematocrit 36.8, and platelet count 299,000. Sodium 134, potassium 3.8, chlorides 99, CO2 25, BUN 28, and creatinine 0.83. Chest x-ray from September 22, is reviewed, and shows a left suprahilar infiltrate. Objective - Vital Signs Vital signs: Vital Signs Temp 97.9 F 09/23/22 08:10 Pulse 73 09/23/22 11:57 Resp 18 09/23/22 11:57 BP 102/57 09/23/22 11:57 Pulse Ox 92 L 09/23/22 11:57 FiO2 Intake & Output 09/22/22 09/23/22 09/23/22 18:59 06:59 18:59 Intake Total 600 358 Output Total 1 0 Balance 599 0 358 Weight 48.2 kg Intake: Oral 600 358 Output: Urine 1 0 Other: Voiding Method Bedside Commode Bedside Commode Bedside Commode # Voids 1 2 1 # Bowel Movements 1 1 - Exam No acute distress, oriented 3. Currently not on any supplemental oxygen. No obvious distress. No use of accessory muscles. HEENT examination is grossly unremarkable. Neck supple. Full range of motion. No adenopathy thyromegaly or neck vein distention. Cardiovascular examination reveals regular rhythm rate. S1-S2 normal. No S3 or S4. No discernible murmur noted. Heart rate 73 bpm. Lungs reveal scattered bilateral diffuse rhonchi and expiratory wheezes. No crackles. Breath sounds equal bilaterally but diminished her out. Room air saturation 92 %. Abdomen soft bowel sounds are heard. No masses or tenderness. Extremities are intact. No cyanosis clubbing or edema. Skin is without rash or lesion. Neurologic examination is brief but nonfocal. - Labs CBC & Chem 7: 09/23/22 07:57 09/23/22 07:57 Labs: Abnormal Lab Results - Last 24 Hours (Table) 09/23/22 09/23/22 Range/Units 07:57 07:57 RDW 16.3 H (11.5-15.5) % Sodium 134 L (137-145) mmol/L BUN 28 H (7-17) mg/dL Glucose 67 L (74-99) mg/dL Microbiology - Last 24 Hours (Table) 09/22/22 08:45 Gram Stain - Preliminary Sputum Sputum Culture - Preliminary 09/18/22 13:00 Blood Culture - Preliminary Blood No Growth after 96 hours 09/18/22 13:15 Blood Culture - Preliminary Blood No Growth after 96 hours Assessment and Plan Assessment: Acute exacerbation of COPD, complicated by left suprahilar pneumonia. Recent history of admission for pseudomonas aeruginosa pneumonia. Chronic fibrotic changes, left upper lobe, from previous stereotactic body radiotherapy, for lung malignancy. Hypertension. Previous history of heavy tobacco use. Hyperlipidemia. History of gastroesophageal reflux disease. Plan: Plan dated 09/20/2022. The patient continues on Symbicort, Zosyn, and albuterol updrafts. The patient also continues on GI prophylaxis with Protonix. We will continue to follow make recommendations along the way. We might consider bronchoscopy down the line should the patient not improve. We will continue to follow the patient. Prognosis is guarded. Plan dated 09/21/2022. The patient continues on albuterol sulfate, and ipratropium bromide breathing treatments. In addition, the patient is on Symbicort 160/4.5, 2 puffs twice a day. The patient's also getting Zosyn, as well as Lipitor, subcu heparin, and Protonix. We will continue to follow the patient closely. If the patient does not show improvement over the next day or so, we might consider bronchoscopy by the end of the week. Additional recommendations and suggestions are forthcoming. Prognosis is guarded. We discussed bronchoscopy today with the patient, and the patient's son. Plan dated 09/22/2022. The patient appears to be doing better. She was able to provide a sputum sample to the laboratory. The patient's on room air. She's not receiving any IV fluids. She continues on Zosyn, Symbicort, as well as albuterol sulfate and ipratropium bromide. Computed tomography scan done early on in this admission showed a consolidation in the anterior segment of the left upper lobe, and also at the right posterior lung base. The more recent chest x-ray shows a left suprahilar infiltrate. We will continue to follow make recommendations. She doesn't really seem excited about undergoing bronchoscopy and BAL. Plan dated 09/23/2022. The patient continues on appropriate medications, but is only slowly improving. Hence, the patient will undergo bronchoscopy, with airway examination therapeutic lavage and BAL tomorrow. The procedures explained to the patient. Her and her family agree. She'll be nothing by mouth after midnight. We'll make sure there is a consent on the chart. Additional recommendations and suggestions are forthcoming. Labs, x-rays, and medications are all reviewed. Time with Patient: Less than 30
[2022-09-23] MEDS: SODIUM CHLORIDE 0.9% 1,000 ML IV SCH (15:50)
[2022-09-23] MEDS: ATORVASTATIN 10 MG TAB PO SCH (20:54)
--- NOTE | 2022-09-23 22:10 | P.PN ---
Subjective Progress Note Date: 09/22/22 Principal diagnosis: Pneumoia and UTI Patient is 86-year old female with a past medical history significant for COPD recent admission to the hospital with a pneumonia sputum was positive for Pseudomonas discharged on Cipro presenting back to the hospital with cough shortness of breath patient did have a CT of the chest with consolidation left upper lobe and right posterior lung. On today's evaluation that is 09/22/2022, the patient continues to be afebrile, the patient is breathing comfortably on room air the patient denies chest pain the patient cough has decreased intensity mostly dry in nature, the patient denies having abdominal pain and no diarrhea Objective - Vital Signs Vital signs: Vital Signs Temp 98.3 F 09/22/22 08:00 Pulse 85 09/22/22 08:19 Resp 16 09/22/22 08:00 BP 105/51 09/22/22 08:00 Pulse Ox 97 09/22/22 08:19 FiO2 Intake & Output 09/21/22 09/22/22 09/22/22 18:59 06:59 18:59 Intake Total 1491 1020 120 Output Total 650 1 Balance 1491 370 119 Weight 48.2 kg Intake: Intake, IV Titration 300 Amount Piperacillin-Tazobactam 3 100 .375 gm In Sodium Chloride 0.9% 100 ml @ 25 mls/hr IVPB Q8HR [facility] Rx# :[id number] Sodium Chloride 0.9% 1, 200 000 ml @ 20 mls/hr IV . Q24H [facility] Rx#:[id number] Oral 1491 720 120 Output: Urine 650 1 Other: Voiding Method Bedside Commode Bedside Commode Bedside Commode # Voids 1 3 1 - Exam GENERAL DESCRIPTION elderly female lying in bed, no distress. No tachypnea or accessory muscle of respiration use. LUNGS: Unlabored breathing. Decreased breath sound the base HEART: S1, S2, regular rate and rhythm. No loud murmur ABDOMEN: Soft, no tenderness , guarding or rigidity, no organomegaly EXTREMITIES: No edema of feet. - Labs CBC & Chem 7: 09/23/22 07:57 09/23/22 07:57 Labs: Microbiology - Last 24 Hours (Table) 09/22/22 08:45 Sputum Culture - Preliminary Sputum 09/18/22 13:00 Blood Culture - Preliminary Blood No Growth after 72 hours 09/18/22 13:15 Blood Culture - Preliminary Blood No Growth after 72 hours Assessment and Plan (1) Pneumonia Current Visit: Yes Status: Acute Code(s): J18.9 - PNEUMONIA, UNSPECIFIED ORGANISM SNOMED Code(s): 450021414 Plan: 1patient with history of COPD recent admission to the hospital about 2 weeks ago and the patient was treated for pneumonia patient noticed to have a significant consolidation in the left upper lobe and right posterior lung on this admission with a previous sputum positive for Pseudomonas concern for possible incomplete resolution of episode of pneumonia. 2 The patient did have a elevated CRP and procalcitonin, sputum has been o btained and cultures are currently pending 3patient seemed to showing clinical improvement and will continue with Zosyn while waiting for the cultures to finalize Time with Patient: Less than 30
--- NOTE | 2022-09-23 22:11 | P.PN ---
Subjective Progress Note Date: 09/23/22 Principal diagnosis: Pneumoia and UTI Patient is 86-year old female with a past medical history significant for COPD recent admission to the hospital with a pneumonia sputum was positive for Pseudomonas discharged on Cipro presenting back to the hospital with cough shortness of breath patient did have a CT of the chest with consolidation left upper lobe and right posterior lung. On today's evaluation that is 09/23/2022, the patient denies any fever and chills, the patient is breathing comfortably on room air the patient denies chest pain the patient cough has decreased intensity and not bringing up any sputum, the patient denies having abdominal pain and no diarrhea, feeling better Objective - Vital Signs Vital signs: Vital Signs Temp 97.9 F 09/23/22 08:10 Pulse 73 09/23/22 11:57 Resp 18 09/23/22 11:57 BP 102/57 09/23/22 11:57 Pulse Ox 92 L 09/23/22 11:57 FiO2 Intake & Output 09/22/22 09/23/22 09/23/22 18:59 06:59 18:59 Intake Total 600 358 Output Total 1 0 Balance 599 0 358 Weight 48.2 kg Intake: Oral 600 358 Output: Urine 1 0 Other: Voiding Method Bedside Commode Bedside Commode Bedside Commode # Voids 1 2 1 # Bowel Movements 1 1 - Exam GENERAL DESCRIPTION elderly female lying in bed, no distress. No tachypnea or accessory muscle of respiration use. LUNGS: Unlabored breathing. Decreased breath sound the base HEART: S1, S2, regular rate and rhythm. No loud murmur ABDOMEN: Soft, no tenderness , guarding or rigidity, no organomegaly EXTREMITIES: No edema of feet. - Labs CBC & Chem 7: 09/23/22 07:57 09/23/22 07:57 Labs: Abnormal Lab Results - Last 24 Hours (Table) 09/23/22 09/23/22 Range/Units 07:57 07:57 RDW 16.3 H (11.5-15.5) % Sodium 134 L (137-145) mmol/L BUN 28 H (7-17) mg/dL Glucose 67 L (74-99) mg/dL Microbiology - Last 24 Hours (Table) 09/18/22 13:00 Blood Culture - Preliminary Blood No Growth after 120 hours 09/18/22 13:15 Blood Culture - Preliminary Blood No Growth after 120 hours 09/22/22 08:45 Gram Stain - Preliminary Sputum Sputum Culture - Preliminary Assessment and Plan (1) Pneumonia Current Visit: Yes Status: Acute Code(s): J18.9 - PNEUMONIA, UNSPECIFIED ORGANISM SNOMED Code(s): 650713197 Plan: 1patient with history of COPD recent admission to the hospital about 2 weeks ago and the patient was treated for pneumonia patient noticed to have a significant consolidation in the left upper lobe and right posterior lung on this admission with a previous sputum positive for Pseudomonas concern for possi ble incomplete resolution of episode of pneumonia. 2 The patient did have a elevated CRP and procalcitonin, sputum has been obtained culture currently growing gram-negative 3patient seemed to showing clinical improvement and will continue with Zosyn possible bronchoscopy and lavage in the morning per pulmonary Time with Patient: Less than 30
--- NOTE | 2022-09-24 00:17 | P.PN ---
Subjective Progress Note Date: 09/23/22 Patient is a 86-year-old female was admitted to hospital due to left upper lobe pneumonia. Patient was recently discharged from the hospital on 09/06/2022 and was treated for right lower lobe pneumonia and acute COPD exacerbation. Patient does have history of lung cancer. Status post left SBRT. Sputum cultures were growing Pseudomonas aeruginosa and urine culture showed Enterococcus faecalis at that time. 09/21/2022 Patient is currently resting in the chair. Awake alert and oriented x3. Breathing status is better and cough improved as well. Patient has been afebrile. No nausea vomiting abdominal pain or diarrhea. Denied any dysuria or hematuria. Blood cultures and sputum cultures have been negative so far. Laboratory pressure WBC 10.4 hemoglobin 12.1 platelets 151 Sodium 133 potassium 3.9 chloride 103 bicarb is 23 BUN 12 and creatinine 0.77 and calcium 7.3 and procalcitonin level was 0.29. Patient is being continued on antibiotics in the form of Zosyn. 09/22/2022 Patient is currently resting in the bed. Awake alert and oriented x3. Feels better. Denies any worsening shortness of breath. Cough is also improving. Patient is on room air. Blood cultures are negative so far. Pending sputum cultures. Repeat chest x-ray today showed left suprahilar infiltrate follow-up for pneumonia as recommended. 2D echocardiogram showed ejection fraction 55 to 60% and normal right vent ricular systolic pressure. No significant valvular abnormalities noted. Patient denied any nausea vomiting abdominal pain or diarrhea. No chest pain. Afebrile. 09/23/2022 Patient is currently resting in the bed. Awake alert and oriented x3. Breathing status is slightly better compared to yesterday. Patient is on room air. Sputum cultures are growing gram-negative bacilli. Continued on antibiotics of Zosyn. Pulmonary is planning for bronchoscopy tomorrow. No complaints of fever or chills. No nausea vomiting abdominal pain or diarrhea. No complaints of cough or sputum production. Able to tolerate oral diet. Current medications reviewed. Objective - Vital Signs Vital signs: Vital Signs Temp 97.9 F 09/23/22 08:10 Pulse 73 09/23/22 11:57 Resp 18 09/23/22 11:57 BP 102/57 09/23/22 11:57 Pulse Ox 92 L 09/23/22 11:57 FiO2 Intake & Output 09/22/22 09/23/22 09/23/22 18:59 06:59 18:59 Intake Total 600 358 Output Total 1 0 Balance 599 0 358 Weight 48.2 kg Intake: Oral 600 358 Output: Urine 1 0 Other: Voiding Method Bedside Commode Bedside Commode Bedside Commode # Voids 1 2 1 # Bowel Movements 1 1 - Exam PHYSICAL EXAMINATION: Patient is lying in the bed comfortably, no acute distress, awake alert and oriented.. HEENT: Normocephalic. Neck is supple. Pupils reactive. Nostrils clear. Oral cavity is moist. Neck reveals no JVD, carotid bruits, or thyromegaly. CHEST EXAMINATION: Trachea is central. Symmetrical expansion.Left upper lobe diminished sounds. Lung arevalo clear to auscultation and percussion. CARDIAC: Normal S1, S2 with no gallops. No murmurs ABDOMEN: Soft. Bowel sounds present. Nontender. No organomegaly. No abdominal bruits. Extremities: reveal no edema. No clubbing or cyanosis Neurologically awake, alert, oriented x3 with well-coordinated movements. No focal deficits noted Skin: No rash or skin lesions. Psychiatric: Coperative. Nonsuicidal, Musculoskeletal: No joint swelling or deformity. Normal range of motion. - Labs CBC & Chem 7: 09/23/22 07:57 09/23/22 07:57 Labs: Abnormal Lab Results - Last 24 Hours (Table) 09/23/22 09/23/22 Range/Units 07:57 07:57 RDW 16.3 H (11.5-15.5) % Sodium 134 L (137-145) mmol/L BUN 28 H (7-17) mg/dL Glucose 67 L (74-99) mg/dL Microbiology - Last 24 Hours (Table) 09/22/22 08:45 Gram Stain - Preliminary Sputum Sputum Culture - Preliminary 09/18/22 13:00 Blood Culture - Preliminary Blood No Growth after 96 hours 09/18/22 13:15 Blood Culture - Preliminary Blood No Growth after 96 hours Assessment and Plan Assessment: Acute bilateral pneumonia COPD Recent admission with Pseudomonas rt lung pneumonia with sputum cultures positive for Pseudomonas. History of lung cancer status post left upper lobe SBRT Hypertension History of smoking Hyperlipidemia GERD DVT prophylaxis Heparin subcu Plan: Patient will be continued antibiotics - Zosyn. Continue with duo nebs and follow-up final sputum cultures and blood cultures have been negative so far. Pulmonary is on board. continue with GI and DVT prophylaxis. Follow-up closely. Pulmonary is planning for bronchoscopy tomorrow.
[2022-09-24] MEDS: PIPERACILLIN-TAZOBACTAM 3.375 GM in SODIUM CHLORIDE 0.9% 100 ML IVPB SCH ×4 (02:12→23:46)
[2022-09-24] MEDS: HEPARIN SODIUM,PORCINE/PF 5,000 UNIT/0.5 ML SYRINGE SQ SCH ×4 (02:12→23:47)
[2022-09-24] MEDS: PANTOPRAZOLE 40 MG TABLET PO SCH (06:48)
[2022-09-24] MEDS: SYMBICORT 160-4.5 MCG INHALER INHALATION SCH ×2 (08:12→19:53)
[2022-09-24] MEDS: IPRATROPIUM-ALBUTEROL 3 ML NEB INHALATION SCH ×4 (08:12→19:53)
[2022-09-24 12:27] LABS: Calcium 7.8 mg/dL (8.4-10.2); Potassium 3.6 mmol/L (3.5-5.1)
[2022-09-24 12:37] LABS: Anisocytosis Slight; Basophils % (A) 1 %; Eosinophils # (A) 0.1 k/uL (0-0.7); Eosinophils % (A) 1 %; HCT 33.9 % (34.0-46.0); HGB 11.1 gm/dL (11.4-16.0); Lymphocytes # (A) 0.8 k/uL (1.0-4.8); Lymphocytes % (A) 13 %; MCH 28.3 pg (25.0-35.0); MCHC 32.8 g/dL (31.0-37.0); MCV 86.4 fL (80.0-100.0); Mean Platelet Volume 8.7; Monocytes # (A) 0.3 k/uL (0-1.0); Monocytes % (A) 5 %; Neutrophils # (A) 4.8 k/uL (1.3-7.7); Neutrophils % (A) 79 %; Platelet Count 183 k/uL (150-450); RBC 3.92 m/uL (3.80-5.40); RDW 16.7 % (11.5-15.5); WBC 6.1 k/uL (3.8-10.6)
[2022-09-24] MEDS ORDERED: MIDAZOLAM 2 MG/2 ML VIAL ONE (14:15)
[2022-09-24] MEDS ORDERED: LIDOCAINE 2% INJ 20 MG/ML (2 ML VIAL) ONE (14:15)
[2022-09-24] MEDS ORDERED: PROPOFOL 10 MG/ML 20 ML VIAL IV ONE (14:15)
[2022-09-24] MEDS ORDERED: fentaNYL (PF) 50 MCG/ML 2 ML AMP ONE (14:15)
[2022-09-24] MEDS ORDERED: IV FLUID CONTINUATION 1,000 ML IV ONE (14:20)
--- NOTE | 2022-09-24 15:02 | P.PN ---
Subjective Progress Note Date: 09/24/22 Principal diagnosis: Pneumonia. This is an 86-year-old female seen by Dr. Sandoval on consultation back on 09/02/22, patient was seen for Pseudomonas pneumonia, and underlying COPD exacerbation. Patient was treated with proper antibiotics, her sputum was positive for Pseudomonas aeruginosa, patient was eventually discharged home on proper antibiotics. She was discharged on 09/06. Patient is also known to have history of lung CVA, involving left upper lobe and she had previous SB RT. This time the patient came in with similar symptoms including few days history of cough, cough is productive with yellow phlegm, chills but no fever, intermittent cough and wheezing. CT of the chest continued to show consolidation in the anterior segment of the left upper lobe also in the right posterior lung base. Patient had also underlying COPD and pulmonary fibrosis. Considering her symptoms, patient was admitted and this consult was initiated. Her WBC count is 8.7 her electrolytes are relatively normal renal profile is normal, pro- calcitonin level is pending. Patient did have abnormal urinalysis suggestive of acute urinary tract infection although the patient has no symptoms of UTI Progress note dated 09/20/2022. 86-year-old female seen by my partner yesterday in consultation. I saw her earlier in August, for Pseudomonas pneumonia and COPD exacerbation. She was discharged from the hospital on September 06, and does have a history of lung cancer, involving the left upper lobe, status post stereotactic body radiotherapy. The patient was readmitted with complaints of cough, yellow phlegm production, chills, and shortness of breath. CT of the chest continued to show consolidation in the anterior segment of the left upper lobe in the posterior lung base on the right. He was admitted with a diagnosis of pneumonia. White count 8.7, hemoglobin 11.2, hematocrit 35.2, platelet count 254,000. Sodium 135, potassium 3.4, chlorides 108, CO2 20, BUN 22, creatinine 0.87. The urine was yellow and cloudy, and there was a small amount of blood. Nitrite was negative. Leukocyte esterase was large positive. There were 53 WBCs, rare WBC clumps, and rare bacteria. Progress note dated 09/21/2022. 86-year-old female, well-known to our service. She's had a recent admission to the hospital for pneumonia, and COPD exacerbation. She was seen in consultation over the week and by my partner. She is seen again in room 360. She is feeling a bit better today. Labs today include a white count of 9.5, hemoglobin 12.2, hematocrit 37, and a platelet count of 251,000. Sodium 133, potassium 3.9, chlorides 103, CO2 23, BUN 12, creatinine 0.77. Pro-calcitonin level is 0.29. Blood cultures are currently negative. We did speak to the patient today about possible bronchoscopy as the week progresses, if she does not improve, and we also discussed this with the patient's son. Progress note dated 09/22/2022. 86-year-old female seen today in room 360. She is feeling better. She was able to provide a sputum sample. Her cough is less congested. We did speak to her about the possibility of bronchoscopy and BAL, should she not improve. She currently not receiving any IV fluids. She is currently on room air. No new laboratory data today. Blood and sputum cultures are thus far negative. Chest x-ray shows a infiltrate, and the left suprahilar area. Progress note dated 09/23/2022. 86-year-old female again seen in room 360. She's feeling a bit better, but not back to baseline. The plan is to do bronchoscopy, airway examination, therapeutic lavage, and BAL, tomorrow. I explained the procedure to the patient and the patient's family. They are in agreement. She's currently on room air. She's not receiving any IV fluids. She'll be nothing by mouth after midnight. We'll make sure that there is a consent on the chart. White count 9.3, hemog lobin 11.9, hematocrit 36.8, and platelet count 299,000. Sodium 134, potassium 3.8, chlorides 99, CO2 25, BUN 28, and creatinine 0.83. Chest x-ray from September 22, is reviewed, and shows a left suprahilar infiltrate. Progress note dated 09/24/2022. 86-year-old female seen in room 360. The patient is to undergo a bronchoscopy with BAL today. The patient is still having lots of chest congestion, cough, and phlegm production. She is having a hard time getting the phlegm up. I explained the procedure to her yesterday, and her and her family were in agreement. White count 6.1, hemoglobin 11.1, hematocrit 33.9, and platelet count 283,000. Sodium 134, potassium 3.6, chlorides 101, CO2 26, BUN 22, and creatinine 0.78. Sputum shows evidence of gram-negative bacilli, and Aspergillus species. The patient is currently on Zosyn. Objective - Vital Signs Vital signs: Vital Signs Temp 97.9 F 09/24/22 12:00 Pulse 73 09/24/22 12:17 Resp 18 09/24/22 12:00 BP 100/53 09/24/22 12:00 Pulse Ox 97 09/24/22 12:00 FiO2 Intake & Output 09/23/22 09/24/22 09/24/22 18:59 06:59 18:59 Intake Total 476 50 Balance 476 50 Intake: IV 50 Oral 476 0 Other: Voiding Method Bedside Commode Bedside Commode Bedside Commode # Voids 1 2 1 # Bowel Movements 1 - Exam No acute distress, oriented 3. Currently not on any supplemental oxygen. No obvious distress. No use of accessory muscles. HEENT examination is grossly unremarkable. Neck supple. Full range of motion. No adenopathy thyromegaly or neck vein distention. Cardiovascular examination reveals regular rhythm rate. S1-S2 normal. No S3 or S4. No discernible murmur noted. Heart rate 73 bpm. Lungs reveal scattered bilateral diffuse rhonchi and expiratory wheezes. No crackles. Breath sounds equal bilaterally but diminished her out. Room air saturation 97 %. Abdomen soft bowel sounds are heard. No masses or tenderness. Extremities are intact. No cyanosis clubbing or edema. Skin is without rash or lesion. Neurologic examination is brief but nonfocal. - Labs CBC & Chem 7: 09/24/22 11:15 09/24/22 11:15 Labs: Abnormal Lab Results - Last 24 Hours (Table) 09/24/22 09/24/22 Range/Units 11:15 11:15 Hgb 11.1 L (11.4-16.0) gm/dL Hct 33.9 L (34.0-46.0) % RDW 16.7 H (11.5-15.5) % Lymphocytes # 0.8 L (1.0-4.8) k/uL Sodium 134 L (137-145) mmol/L BUN 22 H (7-17) mg/dL Calcium 7.8 L (8.4-10.2) mg/dL Microbiology - Last 24 Hours (Table) 09/22/22 08:45 Gram Stain - Preliminary Sputum Sputum Culture - Preliminary Gram Neg Bacilli Aspergillus species 09/18/22 13:00 Blood Culture - Preliminary Blood No Growth after 120 hours 09/18/22 13:15 Blood Culture - Preliminary Blood No Growth after 120 hours Assessment and Plan Assessment: Acute exacerbation of COPD, complicated by left suprahilar pneumonia. Recent history of admission for pseudomonas aeruginosa pneumonia. Chronic fibrotic changes, left upper lobe, from previous stereotactic body radiotherapy, for lung malignancy. Hypertension. Previous history of heavy tobacco use. Hyperlipidemia. History of gastroesophageal reflux disease. Plan: Plan dated 09/20/2022. The patient continues on Symbicort, Zosyn, and albuterol updrafts. The patient also continues on GI prophylaxis with Protonix. We will continue to follow make recommendations along the way. We might consider bronchoscopy down the line should the patient not improve. We will continue to follow the patient. Prognosis is guarded. Plan dated 09/21/2022. The patient continues on albuterol sulfate, and ipratropium bromide breathing treatments. In addition, the patient is on Symbicort 160/4.5, 2 puffs twice a day. The patient's also getting Zosyn, as well as Lipitor, subcu heparin, and Protonix. We will continue to follow the patient closely. If the patient does not show improvement over the next day or so, we might consider bronchoscopy by the end of the week. Additional recommendations and suggestions are forthcoming. Prognosis is guarded. We discussed bronchoscopy today with the patient, and the patient's son. Plan dated 09/22/2022. The patient appears to be doing better. She was able to provide a sputum sample to the laboratory. The patient's on room air. She's not receiving any IV fluids. She continues on Zosyn, Symbicort, as well as albuterol sulfate and ipratropium bromide. Computed tomography scan done early on in this admission showed a consolidation in the anterior segment of the left upper lobe, and also at the right posterior lung base. The more recent chest x-ray shows a left suprahilar infiltrate. We will continue to follow make recommendations. She doesn't really seem excited about undergoing bronchoscopy and BAL. Plan dated 09/23/2022. The patient continues on appropriate medications, but is only slowly improving. Hence, the patient will undergo bronchoscopy, with airway examination therapeutic lavage and BAL tomorrow. The procedures explained to the patient. Her and her family agree. She'll be nothing by mouth after midnight. We'll make sure there is a consent on the chart. Additional recommendations and suggestions are forthcoming. Labs, x-rays, and medications are all reviewed. Plan dated 09/24/2022. The patient is going to have bronchoscopy with airway examination, therapeutic lavage, and BAL today. She remains on Zosyn. Her sputum sample showing evidence of gram-negative bacilli. It is yet to be identified. There is also some Aspergillus in the sputum. Labs, x-rays, and medications are reviewed. Hopeful discharge soon. We'll see how she responds with a bronchoscopy. Her other medications are appropriate. Time with Patient: Less than 30
--- NOTE | 2022-09-24 17:30 | P.PN ---
Subjective Progress Note Date: 09/24/22 86-year-old female was admitted to hospital due to left upper lobe pneumonia. Patient was recently discharged from the hospital on 09/06/2022 and was treated for right lower lobe pneumonia and acute COPD exacerbation. Patient does have history of lung cancer. Status post left SBRT. Sputum cultures were growing Pseudomonas aeruginosa and urine culture showed Enterococcus faecalis at that time. 09/24/2022 Patient is seen and evaluated sitting up in bedside chair; scheduled to undergo a bronchoscopy with BAL today. The patient is still having lots of chest congestion, cough, and phlegm production. She is having a hard time getting the phlegm up. I explained the procedure to her yesterday, and her and her family were in agreement. White count 6.1, hemoglobin 11.1, hematocrit 33.9, and platelet count 283,000. Sodium 134, potassium 3.6, chlorides 101, CO2 26, BUN 22, and creatinine 0.78. Sputum shows evidence of gram-negative bacilli, and Aspergillus species. The patient is currently on Zosyn. Sputum specimen is positive for gram-negative bacilli and some Aspergillus; final culture and sensitivities pending Objective - Vital Signs Vital signs: Vital Signs Temp 97.9 F 09/24/22 12:00 Pulse 73 09/24/22 12:17 Resp 18 09/24/22 12:00 BP 100/53 09/24/22 12:00 Pulse Ox 97 09/24/22 12:00 FiO2 Intake & Output 09/23/22 09/24/22 09/24/22 18:59 06:59 18:59 Intake Total 476 Balance 476 Intake: Oral 476 Other: Voiding Method Bedside Commode Bedside Commode Bedside Commode # Voids 1 2 1 # Bowel Movements 1 - Exam HEENT: Normocephalic. Neck is supple. Pupils reactive. Nostrils clear. Oral cavity is moist. Neck reveals no JVD, carotid bruits, or thyromegaly. CHEST EXAMINATION: Trachea is central. Symmetrical expansion.Left upper lobe diminished sounds. Lung arevalo clear to auscultation and percussion. CARDIAC: Normal S1, S2 with no gallops. No murmurs ABDOMEN: Soft. Bowel sounds present. Nontender. No organomegaly. No abdominal bruits. Extremities: reveal no edema. No clubbing or cyanosis Neurologically awake, alert, oriented x3 with well-coordinated movements. No fo forrest deficits noted Skin: No rash or skin lesions. Psychiatric: Coperative. Nonsuicidal, Musculoskeletal: No joint swelling or deformity. Normal range of motion. - Labs CBC & Chem 7: 09/24/22 11:15 09/24/22 11:15 Labs: Abnormal Lab Results - Last 24 Hours (Table) 09/24/22 Range/Units 11:15 Sodium 134 L (137-145) mmol/L BUN 22 H (7-17) mg/dL Calcium 7.8 L (8.4-10.2) mg/dL Microbiology - Last 24 Hours (Table) 09/22/22 08:45 Gram Stain - Preliminary Sputum Sputum Culture - Preliminary Gram Neg Bacilli Aspergillus species 09/18/22 13:00 Blood Culture - Preliminary Blood No Growth after 120 hours 09/18/22 13:15 Blood Culture - Preliminary Blood No Growth after 120 hours Assessment and Plan Assessment: Acute bilateral pneumonia COPD Recent admission with Pseudomonas rt lung pneumonia with sputum cultures positive for Pseudomonas. History of lung cancer status post left upper lobe SBRT Hypertension History of smoking Hyperlipidemia GERD DVT prophylaxis Heparin subcu Plan: Patient will be continued antibiotics - Zosyn. Continue with duo nebs and follow-up final sputum cultures and blood cultures have been negative so far. Pulmonary is on board. continue with GI and DVT prophylaxis. Follow-up closely. Pulmonary is planning for bronchoscopy today
[2022-09-24] MEDS: SODIUM CHLORIDE 0.9% 1,000 ML IV SCH (18:58)
[2022-09-24] MEDS: ATORVASTATIN 10 MG TAB PO SCH (20:02)
--- NOTE | 2022-09-24 22:34 | PCN ---
PROCEDURE NOTE PROCEDURES PERFORMED: Bronchoscopy, airway examination, therapeutic lavage, bronchoalveolar lavage. PREOPERATIVE DIAGNOSES: Retained secretions, pneumonia, acute bronchitis. POSTOPERATIVE DIAGNOSES: Retained secretions, pneumonia, acute bronchitis. There was informed consent and universal timeout. The patient's procedure took place in room #1 [facility]. ANESTHESIA PROVIDED: General anesthesia. DESCRIPTION OF PROCEDURE: After the patient was adequately sedated and being fully monitored, the bronchoscope was inserted through the right nostril. It passed through the nasopharynx into the oropharynx. The hypopharynx was identified. All the hypopharyngeal structures including anterior commissure, true cords, false cords, arytenoids, piriform sinuses, right and left valleculae, and epiglottis all appeared normal. Next, the glottic opening was topicalized. The bronchoscope went through the glottic opening into the trachea. Trachea appeared normal. There were thick secretions noted in the distal trachea. Tracheal jose was sharp. Right and left mainstem were topicalized. The right upper lobe and its 3 segments, right middle lobe and its 2 segments, right lower lobe and its 5 segments, lingula and its 2 segments, left upper lobe proper and its 2 segments, and left lower lobe and its 4 segments all had similar findings of diffuse airway erythema and hyperemia. There was acute bronchitis throughout. There was minimal mucosal friability. There was no dominant mass or tumor. The thick viscid secretions noted throughout, more so on the left lower lobe and right lower lobes than anywhere else. The secretions were suctioned with some difficulty. Saline was used to help suction the secretions. The bronchoscope was then wedged into the right middle lobe. We did a BAL. 30 mL of fluid was recovered. The patient tolerated the procedure well. The bronchoscope was withdrawn. The patient will be recovered and returned to her room. The fluid will be sent for analysis including cytology, and microbiology. MMODL / IJN: [id number] /
[2022-09-24 22:52] LABS: Appearance,BF Cloudy
[2022-09-25] MEDS: PANTOPRAZOLE 40 MG TABLET PO SCH (06:55)
[2022-09-25] MEDS: SYMBICORT 160-4.5 MCG INHALER INHALATION SCH ×2 (08:21→19:52)
[2022-09-25] MEDS: IPRATROPIUM-ALBUTEROL 3 ML NEB INHALATION SCH ×4 (08:21→19:52)
[2022-09-25] MEDS: HEPARIN SODIUM,PORCINE/PF 5,000 UNIT/0.5 ML SYRINGE SQ SCH ×2 (08:26→16:42)
[2022-09-25] MEDS: PIPERACILLIN-TAZOBACTAM 3.375 GM in SODIUM CHLORIDE 0.9% 100 ML IVPB SCH ×2 (08:26→16:42)
--- NOTE | 2022-09-25 09:49 | P.PN ---
Subjective Progress Note Date: 09/24/22 Principal diagnosis: Pneumoia and UTI Patient is 86-year old female with a past medical history significant for COPD recent admission to the hospital with a pneumonia sputum was positive for Pseudomonas discharged on Cipro presenting back to the hospital with cough shortness of breath patient did have a CT of the chest with consolidation left upper lobe and right posterior lung. On today's evaluation that is 09/24/2022, the patient remains to be afebrile, the patient is breathing comfortably on room air the patient denies chest pain the patient cough has decreased intensity and mostly dry in nature, the patient denies having abdominal pain and no diarrhea, patient is currently waiting for a bronchoscopy Objective - Vital Signs Vital signs: Vital Signs Temp 97.9 F 09/24/22 12:00 Pulse 73 09/24/22 12:17 Resp 18 09/24/22 12:00 BP 100/53 09/24/22 12:00 Pulse Ox 97 09/24/22 12:00 FiO2 Intake & Output 09/23/22 09/24/22 09/24/22 18:59 06:59 18:59 Intake Total 476 0 Balance 476 0 Intake: Oral 476 0 Other: Voiding Method Bedside Commode Bedside Commode Bedside Commode # Voids 1 2 1 # Bowel Movements 1 - Exam GENERAL DESCRIPTION elderly female lying in bed, no distress. No tachypnea or accessory muscle of respiration use. LUNGS: Unlabored breathing. Decreased breath sound the base HEART: S1, S2, regular rate and rhythm. No loud murmur ABDOMEN: Soft, no tenderness , guarding or rigidity, no organomegaly EXTREMITIES: No edema of feet. - Labs CBC & Chem 7: 09/24/22 11:15 09/24/22 11:15 Labs: Abnormal Lab Results - Last 24 Hours (Table) 09/24/22 09/24/22 Range/Units 11:15 11:15 Hgb 11.1 L (11.4-16.0) gm/dL Hct 33.9 L (34.0-46.0) % RDW 16.7 H (11.5-15.5) % Lymphocytes # 0.8 L (1.0-4.8) k/uL Sodium 134 L (137-145) mmol/L BUN 22 H (7-17) mg/dL Calcium 7.8 L (8.4-10.2) mg/dL Microbiology - Last 24 Hours (Table) 09/22/22 08:45 Gram Stain - Preliminary Sputum Sputum Culture - Preliminary Gram Neg Bacilli Aspergillus species 09/18/22 13:00 Blood Culture - Preliminary Blood No Growth after 120 hours 09/18/22 13:15 Blood Culture - Preliminary Blood No Growth after 120 hours Assessment and Plan (1) Pneumonia Current Visit: Yes Status: Acute Code(s): J18.9 - PNEUMONIA, UNSPECIFIED O RGANISM SNOMED Code(s): 601987392 Plan: 1patient with history of COPD recent admission to the hospital about 2 weeks ago and the patient was treated for pneumonia patient noticed to have a significant consolidation in the left upper lobe and right posterior lung on this admission with a previous sputum positive for Pseudomonas concern for p ossible incomplete resolution of episode of pneumonia. 2 The patient did have a elevated CRP and procalcitonin, sputum has been obtained culture currently growing gram-negative with ID sensitivities pending, also showing Aspergillus possible colonization 3patient seemed to showing clinical improvement and will continue with Zosyn while waiting for bronchoscopy and deep cultures and possible biopsy Time with Patient: Less than 30
--- NOTE | 2022-09-25 13:17 | P.PN ---
Subjective Progress Note Date: 09/25/22 Principal diagnosis: Pneumonia. This is an 86-year-old female seen by Dr. Sandoval on consultation back on 09/02/22, patient was seen for Pseudomonas pneumonia, and underlying COPD exacerbation. Patient was treated with proper antibiotics, her sputum was positive for Pseudomonas aeruginosa, patient was eventually discharged home on proper antibiotics. She was discharged on 09/06. Patient is also known to have history of lung CVA, involving left upper lobe and she had previous SB RT. This time the patient came in with similar symptoms including few days history of cough, cough is productive with yellow phlegm, chills but no fever, intermittent cough and wheezing. CT of the chest continued to show consolidation in the anterior segment of the left upper lobe also in the right posterior lung base. Patient had also underlying COPD and pulmonary fibrosis. Considering her symptoms, patient was admitted and this consult was initiated. Her WBC count is 8.7 her electrolytes are relatively normal renal profile is normal, pro- calcitonin level is pending. Patient did have abnormal urinalysis suggestive of acute urinary tract infection although the patient has no symptoms of UTI Progress note dated 09/20/2022. 86-year-old female seen by my partner yesterday in consultation. I saw her earlier in August, for Pseudomonas pneumonia and COPD exacerbation. She was discharged from the hospital on September 06, and does have a history of lung cancer, involving the left upper lobe, status post stereotactic body radiotherapy. The patient was readmitted with complaints of cough, yellow phlegm production, chills, and shortness of breath. CT of the chest continued to show consolidation in the anterior segment of the left upper lobe in the posterior lung base on the right. He was admitted with a diagnosis of pneumonia. White count 8.7, hemoglobin 11.2, hematocrit 35.2, platelet count 254,000. Sodium 135, potassium 3.4, chlorides 108, CO2 20, BUN 22, creatinine 0.87. The urine was yellow and cloudy, and there was a small amount of blood. Nitrite was negative. Leukocyte esterase was large positive. There were 53 WBCs, rare WBC clumps, and rare bacteria. Progress note dated 09/21/2022. 86-year-old female, well-known to our service. She's had a recent admission to the hospital for pneumonia, and COPD exacerbation. She was seen in consultation over the week and by my partner. She is seen again in room 360. She is feeling a bit better today. Labs today include a white count of 9.5, hemoglobin 12.2, hematocrit 37, and a platelet count of 251,000. Sodium 133, potassium 3.9, chlorides 103, CO2 23, BUN 12, creatinine 0.77. Pro-calcitonin level is 0.29. Blood cultures are currently negative. We did speak to the patient today about possible bronchoscopy as the week progresses, if she does not improve, and we also discussed this with the patient's son. Progress note dated 09/22/2022. 86-year-old female seen today in room 360. She is feeling better. She was able to provide a sputum sample. Her cough is less congested. We did speak to her about the possibility of bronchoscopy and BAL, should she not improve. She currently not receiving any IV fluids. She is currently on room air. No new laboratory data today. Blood and sputum cultures are thus far negative. Chest x-ray shows a infiltrate, and the left suprahilar area. Progress note dated 09/23/2022. 86-year-old female again seen in room 360. She's feeling a bit better, but not back to baseline. The plan is to do bronchoscopy, airway examination, therapeutic lavage, and BAL, tomorrow. I explained the procedure to the patient and the patient's family. They are in agreement. She's currently on room air. She's not receiving any IV fluids. She'll be nothing by mouth after midnight. We'll make sure that there is a consent on the chart. White count 9.3, hemog lobin 11.9, hematocrit 36.8, and platelet count 299,000. Sodium 134, potassium 3.8, chlorides 99, CO2 25, BUN 28, and creatinine 0.83. Chest x-ray from September 22, is reviewed, and shows a left suprahilar infiltrate. Progress note dated 09/24/2022. 86-year-old female seen in room 360. The patient is to undergo a bronchoscopy with BAL today. The patient is still having lots of chest congestion, cough, and phlegm production. She is having a hard time getting the phlegm up. I explained the procedure to her yesterday, and her and her family were in agreement. White count 6.1, hemoglobin 11.1, hematocrit 33.9, and platelet count 283,000. Sodium 134, potassium 3.6, chlorides 101, CO2 26, BUN 22, and creatinine 0.78. Sputum shows evidence of gram-negative bacilli, and Aspergillus species. The patient is currently on Zosyn. Progress note dated 09/25/2022. 86-year-old female seen in room 360. The patient had bronchoscopy with BAL yesterday. Sampling currently pending. She had thick secretions noted throughout the airways. We did do a BAL of the right middle lobe. She's feel ing much better today, and her cough is very dry. Hopeful discharge in the near future. Currently, she is on Zosyn. There are some gram-negative bacilli in the sputum, as well as some Aspergillus. No new labs today other than a C- reactive protein of 8. Clinically, the patient's doing well. She is on room air. She's not receiving any IV fluids. She is a DO NOT RESUSCITATE patient. Objective - Vital Signs Vital signs: Vital Signs Temp 98.0 F 09/25/22 00:00 Pulse 88 09/25/22 11:55 Resp 18 09/25/22 02:58 BP 106/57 09/25/22 02:58 Pulse Ox 93 L 09/25/22 02:58 FiO2 Intake & Output 09/24/22 09/25/22 09/25/22 18:59 06:59 18:59 Intake Total 530 Balance 530 Intake: IV 50 Oral 480 Other: Voiding Method Bedside Commode Bedside Commode # Voids 1 2 1 # Bowel Movements 1 - Exam No acute distress, oriented 3. Currently not on any supplemental oxygen. No obvious distress. No use of accessory muscles. HEENT examination is grossly unremarkable. Neck supple. Full range of motion. No adenopathy thyromegaly or neck vein distention. Cardiovascular examination reveals regular rhythm rate. S1-S2 normal. No S3 or S4. No discernible murmur noted. Heart rate 88 bpm. Lungs reveal scattered bilateral diffuse rhonchi and expiratory wheezes. No crackles. Breath sounds equal bilaterally but diminished her out. Room air saturation 96 %. Abdomen soft bowel sounds are heard. No masses or tenderness. Extremities are intact. No cyanosis clubbing or edema. Skin is without rash or lesion. Neurologic examination is brief but nonfocal. - Labs CBC & Chem 7: 09/24/22 11:15 09/24/22 11:15 Labs: Abnormal Lab Results - Last 24 Hours (Table) 09/25/22 Range/Units 09:08 C-Reactive Protein 8.0 H (<1.0) mg/dL Microbiology - Last 24 Hours (Table) 09/22/22 08:45 Gram Stain - Preliminary Sputum Sputum Culture - Preliminary Gram Neg Bacilli Aspergillus fumigatus 09/24/22 14:30 Gram Stain - Preliminary Bronchial Washings - Right Bronchial Washings Culture - Preliminary 09/24/22 14:30 Fungal Culture - Preliminary Bronchial Washings - Right 09/24/22 14:30 Acid Fast Bacilli Culture - Preliminary Bronchial Washings - Right 09/18/22 13:00 Blood Culture - Final Blood No Growth after 144 hours 09/18/22 13:15 Blood Culture - Final Blood No Growth after 144 hours Assessment and Plan Assessment: Acute exacerbation of COPD, complicated by left suprahilar pneumonia. S/P bronchoscopy, airway examination, therapeutic lavage, and BAL, right middle lobe, 09/24/2022. Recent history of admission for pseudomonas aeruginosa pneumonia. Chronic fibrotic changes, left upper lobe, from previous stereotactic body radiotherapy, for lung malignancy. Hypertension. Previous history of heavy tobacco use. Hyperlipidemia. History of gastroesophageal reflux disease. Plan: Plan dated 09/20/2022. The patient continues on Symbicort, Zosyn, and albuterol updrafts. The patient also continues on GI prophylaxis with Protonix. We will continue to follow make recommendations along the way. We might consider bronchoscopy down the line should the patient not improve. We will continue to follow the patient. Prognosis is guarded. Plan dated 09/21/2022. The patient continues on albuterol sulfate, and ipratropium bromide breathing treatments. In addition, the patient is on Symbicort 160/4.5, 2 puffs twice a day. The patient's also getting Zosyn, as well as Lipitor, subcu heparin, and Protonix. We will continue to follow the patient closely. If the patient does not show improvement over the next day or so, we might consider bronchoscopy by the end of the week. Additional recommendations and suggestions are forthcoming. Prognosis is guarded. We discussed bronchoscopy today with the patient, and the patient's son. Plan dated 09/22/2022. The patient appears to be doing better. She was able to provide a sputum sample to the laboratory. The patient's on room air. She's not receiving any IV fluids. She continues on Zosyn, Symbicort, as well as albuterol sulfate and ipratropium bromide. Computed tomography scan done early on in this admission showed a consolidation in the anterior segment of the left upper lobe, and also at the right posterior lung base. The more recent chest x-ray shows a left suprahilar infiltrate. We will continue to follow make recommendations. She doesn't really seem excited about undergoing bronchoscopy and BAL. Plan dated 09/23/2022. The patient continues on appropriate medications, but is only slowly improving. Hence, the patient will undergo bronchoscopy, with airway examination therape utic lavage and BAL tomorrow. The procedures explained to the patient. Her and her family agree. She'll be nothing by mouth after midnight. We'll make sure there is a consent on the chart. Additional recommendations and suggestions are forthcoming. Labs, x-rays, and medications are all reviewed. Plan dated 09/24/2022. The patient is going to have bronchoscopy with airway examination, therapeutic lavage, and BAL today. She remains on Zosyn. Her sputum sample showing evidence of gram-negative bacilli. It is yet to be identified. There is also some Aspergillus in the sputum. Labs, x-rays, and medications are reviewed. Hopeful discharge soon. We'll see how she responds with a bronchoscopy. Her other medications are appropriate. Plan dated 09/25/2022. The patient underwent bronchoscopy yesterday. She did very well with the procedure. She is very thick secretions noted throughout both right and left lung. There were suctioned. We did a formal BAL in the right middle lobe. There was no endobronchial masses or tumors. The airways were inflamed and erythematous. There is no bleeding. The patient is feeling much better today. She is on room air. Her cough is much more dry today. Additional recommendations and suggestions are forthcoming. Time with Patient: Less than 30
--- NOTE | 2022-09-25 15:25 | P.PN ---
Subjective Progress Note Date: 09/25/22 Principal diagnosis: Acute exacerbation COPD Left suprahilar pneumonia; status post bronchoscopy with BAL Recent history of Pseudomonas pneumonia 86-year-old female was admitted to hospital due to left upper lobe pneumonia. Patient was recently discharged from the hospital on 09/06/2022 and was treated for right lower lobe pneumonia and acute COPD exacerbation. Patient does have history of lung cancer. Status post left SBRT. Sputum cultures were growing Pseudomonas aeruginosa and urine culture showed Enterococcus faecalis at that time. 09/24/2022 Patient is seen and evaluated sitting up in bedside chair; scheduled to undergo a bronchoscopy with BAL today. The patient is still having lots of chest congestion, cough, and phlegm production. She is having a hard time getting the phlegm up. I explained the procedure to her yesterday, and her and her family were in agreement. White count 6.1, hemoglobin 11.1, hematocrit 33.9, and platelet count 283,000. Sodium 134, potassium 3.6, chlorides 101, CO2 26, BUN 22, and creatinine 0.78. Sputum shows evidence of gram-negative bacilli, and Aspergillus species. The patient is currently on Zosyn. Sputum specimen is positive for gram-negative bacilli and some Aspergillus; final culture and sensitivities pending 09/25/2022 Patient is seen and evaluated resting comfortably in bed; reports improvement in breathing post bronchoscopy with BAL yesterday which revealed thick secretions throughout the airways especially right middle lobe; samples have been sent for testing Vital signs are reviewed and stable with temperature of 98, pulse 88, respiration 18 and blood pressure 106/57; patient remains on IV Zosyn; sputum growing gram-negative bacillary SS Aspergillus Pulmonary on board plans for likely discharge in next 48 hours Objective - Vital Signs Vital signs: Vital Signs Temp 98.0 F 09/25/22 00:00 Pulse 76 09/25/22 08:37 Resp 18 09/25/22 02:58 BP 106/57 09/25/22 02:58 Pulse Ox 93 L 09/25/22 02:58 FiO2 Intake & Output 09/24/22 09/25/22 09/25/22 18:59 06:59 18:59 Intake Total 530 Balance 530 Intake: IV 50 Oral 480 Other: Voiding Method Bedside Commode Bedside Commode # Voids 1 2 1 # Bowel Movements 1 - Exam HEENT: Normocephalic. Neck is supple. Pupils reactive. Nostrils clear. Oral cavity is moist. Neck reveals no JVD, carotid bruits, or thyromegaly. CHEST EXAMINATION: Trachea is central. Symmetrical expansion.Left upper lobe diminished sounds. Lung arevalo clear to auscultation and percussion. CARDIAC: Normal S1, S2 with no gallops. No murmurs ABDOMEN: Soft. Bowel sounds present. Nontender. No organomegaly. No abdominal bruits. Extremities: reveal no edema. No clubbing or cyanosis Neurologically awake, alert, oriented x3 with well-coordinated movements. No focal deficits noted Skin: No rash or skin lesions. Psychiatric: Coperative. Nonsuicidal, Musculoskeletal: No joint swelling or deformity. Normal range of motion. - Labs CBC & Chem 7: 09/24/22 11:15 09/24/22 11:15 Labs: Abnormal Lab Results - Last 24 Hours (Table) 09/24/22 09/24/22 Range/Units 11:15 11:15 Hgb 11.1 L (11.4-16.0) gm/dL Hct 33.9 L (34.0-46.0) % RDW 16.7 H (11.5-15.5) % Lymphocytes # 0.8 L (1.0-4.8) k/uL Sodium 134 L (137-145) mmol/L BUN 22 H (7-17) mg/dL Calcium 7.8 L (8.4-10.2) mg/dL Microbiology - Last 24 Hours (Table) 09/24/22 14:30 Gram Stain - Preliminary Bronchial Washings - Right Bronchial Washings Culture - Preliminary 09/24/22 14:30 Fungal Culture - Preliminary Bronchial Washings - Right 09/24/22 14:30 Acid Fast Bacilli Culture - Preliminary Bronchial Washings - Right 09/18/22 13:00 Blood Culture - Final Blood No Growth after 144 hours 09/18/22 13:15 Blood Culture - Final Blood No Growth after 144 hours 09/22/22 08:45 Gram Stain - Preliminary Sputum Sputum Culture - Preliminary Gram Neg Bacilli Aspergillus species Assessment and Plan Assessment: Acute bilateral pneumonia COPD Recent admission with Pseudomonas rt lung pneumonia with sputum cultures positive for Pseudomonas. History of lung cancer status post left upper lobe SBRT Hypertension History of smoking Hyperlipidemia GERD DVT prophylaxis Heparin subcu Plan: Patient will be continued antibiotics - Zosyn. Continue with duo nebs and follow-up final sputum cultures and blood cultures have been negative so far. Pulmonary is on board. continue with GI and DVT prophylaxis. Follow-up closely. Pulmonary is planning for bronchoscopy today
[2022-09-25] MEDS: SODIUM CHLORIDE 0.9% 1,000 ML IV SCH (18:02)
[2022-09-25] MEDS: ATORVASTATIN 10 MG TAB PO SCH (20:21)
[2022-09-26 00:13] LABS: Procalcitonin 0.16 ng/mL (0.02-0.09)
[2022-09-26] MEDS: PIPERACILLIN-TAZOBACTAM 3.375 GM in SODIUM CHLORIDE 0.9% 100 ML IVPB SCH ×4 (03:20→23:40)
[2022-09-26] MEDS: HEPARIN SODIUM,PORCINE/PF 5,000 UNIT/0.5 ML SYRINGE SQ SCH ×4 (03:21→23:39)
[2022-09-26 06:20] LABS: Anisocytosis Slight; Basophils % (A) 0 %; Eosinophils # (A) 0.1 k/uL (0-0.7); Eosinophils % (A) 1 %; Hypochromasia Slight; Lymphocytes # (A) 1.1 k/uL (1.0-4.8); Lymphocytes % (A) 21 %; MCH 28.5 pg (25.0-35.0); MCHC 32.3 g/dL (31.0-37.0); MCV 88.3 fL (80.0-100.0); Monocytes # (A) 0.3 k/uL (0-1.0); Monocytes % (A) 6 %; Neutrophils # (A) 3.8 k/uL (1.3-7.7); Neutrophils % (A) 71 %; Platelet Count 214 k/uL (150-450); RBC 3.85 m/uL (3.80-5.40); RDW 16.5 % (11.5-15.5); WBC 5.4 k/uL (3.8-10.6)
[2022-09-26] MEDS: PANTOPRAZOLE 40 MG TABLET PO SCH (06:22)
[2022-09-26 06:37] LABS: Calcium 8.2 mg/dL (8.4-10.2)
[2022-09-26] MEDS: IPRATROPIUM-ALBUTEROL 3 ML NEB INHALATION SCH ×4 (08:17→20:41)
[2022-09-26] MEDS: SYMBICORT 160-4.5 MCG INHALER INHALATION SCH ×2 (08:17→20:40)
--- NOTE | 2022-09-26 09:12 | P.PN ---
Subjective Progress Note Date: 09/26/22 Principal diagnosis: Pneumonia. This is an 86-year-old female seen by Dr. Sandoval on consultation back on 09/02/22, patient was seen for Pseudomonas pneumonia, and underlying COPD exacerbation. Patient was treated with proper antibiotics, her sputum was positive for Pseudomonas aeruginosa, patient was eventually discharged home on proper antibiotics. She was discharged on 09/06. Patient is also known to have history of lung CVA, involving left upper lobe and she had previous SB RT. This time the patient came in with similar symptoms including few days history of cough, cough is productive with yellow phlegm, chills but no fever, intermittent cough and wheezing. CT of the chest continued to show consolidation in the anterior segment of the left upper lobe also in the right posterior lung base. Patient had also underlying COPD and pulmonary fibrosis. Considering her symptoms, patient was admitted and this consult was initiated. Her WBC count is 8.7 her electrolytes are relatively normal renal profile is normal, pro- calcitonin level is pending. Patient did have abnormal urinalysis suggestive of acute urinary tract infection although the patient has no symptoms of UTI Progress note dated 09/20/2022. 86-year-old female seen by my partner yesterday in consultation. I saw her earlier in August, for Pseudomonas pneumonia and COPD exacerbation. She was discharged from the hospital on September 06, and does have a history of lung cancer, involving the left upper lobe, status post stereotactic body radiotherapy. The patient was readmitted with complaints of cough, yellow phlegm production, chills, and shortness of breath. CT of the chest continued to show consolidation in the anterior segment of the left upper lobe in the posterior lung base on the right. He was admitted with a diagnosis of pneumonia. White count 8.7, hemoglobin 11.2, hematocrit 35.2, platelet count 254,000. Sodium 135, potassium 3.4, chlorides 108, CO2 20, BUN 22, creatinine 0.87. The urine was yellow and cloudy, and there was a small amount of blood. Nitrite was negative. Leukocyte esterase was large positive. There were 53 WBCs, rare WBC clumps, and rare bacteria. Progress note dated 09/21/2022. 86-year-old female, well-known to our service. She's had a recent admission to the hospital for pneumonia, and COPD exacerbation. She was seen in consultation over the week and by my partner. She is seen again in room 360. She is feeling a bit better today. Labs today include a white count of 9.5, hemoglobin 12.2, hematocrit 37, and a platelet count of 251,000. Sodium 133, potassium 3.9, chlorides 103, CO2 23, BUN 12, creatinine 0.77. Pro-calcitonin level is 0.29. Blood cultures are currently negative. We did speak to the patient today about possible bronchoscopy as the week progresses, if she does not improve, and we also discussed this with the patient's son. Progress note dated 09/22/2022. 86-year-old female seen today in room 360. She is feeling better. She was able to provide a sputum sample. Her cough is less congested. We did speak to her about the possibility of bronchoscopy and BAL, should she not improve. She currently not receiving any IV fluids. She is currently on room air. No new laboratory data today. Blood and sputum cultures are thus far negative. Chest x-ray shows a infiltrate, and the left suprahilar area. Progress note dated 09/23/2022. 86-year-old female again seen in room 360. She's feeling a bit better, but not back to baseline. The plan is to do bronchoscopy, airway examination, therapeutic lavage, and BAL, tomorrow. I explained the procedure to the patient and the patient's family. They are in agreement. She's currently on room air. She's not receiving any IV fluids. She'll be nothing by mouth after midnight. We'll make sure that there is a consent on the chart. White count 9.3, hemog lobin 11.9, hematocrit 36.8, and platelet count 299,000. Sodium 134, potassium 3.8, chlorides 99, CO2 25, BUN 28, and creatinine 0.83. Chest x-ray from September 22, is reviewed, and shows a left suprahilar infiltrate. Progress note dated 09/24/2022. 86-year-old female seen in room 360. The patient is to undergo a bronchoscopy with BAL today. The patient is still having lots of chest congestion, cough, and phlegm production. She is having a hard time getting the phlegm up. I explained the procedure to her yesterday, and her and her family were in agreement. White count 6.1, hemoglobin 11.1, hematocrit 33.9, and platelet count 283,000. Sodium 134, potassium 3.6, chlorides 101, CO2 26, BUN 22, and creatinine 0.78. Sputum shows evidence of gram-negative bacilli, and Aspergillus species. The patient is currently on Zosyn. Progress note dated 09/25/2022. 86-year-old female seen in room 360. The patient had bronchoscopy with BAL yesterday. Sampling currently pending. She had thick secretions noted throughout the airways. We did do a BAL of the right middle lobe. She's feel ing much better today, and her cough is very dry. Hopeful discharge in the near future. Currently, she is on Zosyn. There are some gram-negative bacilli in the sputum, as well as some Aspergillus. No new labs today other than a C- reactive protein of 8. Clinically, the patient's doing well. She is on room air. She's not receiving any IV fluids. She is a DO NOT RESUSCITATE patient. Progress note dated 09/26/2022. The patient is seen today in room 360. She had bronchoscopy with BAL on Tuesday. She's on room air. She's not receiving any IV fluids. She is on Zosyn. She's feeling much better. Much less chest congestion, cough, wheezing, and phlegm production. Her breathing is also much improved. On September 22 was positive for gram-negative bacilli. BAL sampling, still pending. Objective - Vital Signs Vital signs: Vital Signs Temp 97.7 F 09/25/22 16:00 Pulse 78 09/26/22 08:27 Resp 19 09/26/22 04:00 BP 102/57 09/26/22 04:00 Pulse Ox 92 L 09/26/22 04:00 FiO2 21 09/25/22 19:52 Intake & Output 09/25/22 09/26/22 09/26/22 18:59 06:59 18:59 Output Total 0 Balance 0 Output: Urine 0 Stool 0 Urine/Stool Mix 0 Emesis 0 Other: Voiding Method Bedside Commode Bedside Commode # Voids 3 2 0 # Bowel Movements 2 0 - Exam No acute distress, oriented 3. Currently not on any supplemental oxygen. No obvious distress. No use of accessory muscles. HEENT examination is grossly unremarkable. Neck supple. Full range of motion. No adenopathy thyromegaly or neck vein dist ention. Cardiovascular examination reveals regular rhythm rate. S1-S2 normal. No S3 or S4. No discernible murmur noted. Heart rate 78 bpm. Lungs reveal scattered bilateral diffuse rhonchi and expiratory wheezes. No crackles. Breath sounds equal bilaterally but diminished her out. Room air s aturation 94 %. Abdomen soft bowel sounds are heard. No masses or tenderness. Extremities are intact. No cyanosis clubbing or edema. Skin is without rash or lesion. Neurologic examination is brief but nonfocal. - Labs CBC & Chem 7: 09/26/22 05:55 09/26/22 05:55 Labs: Abnormal Lab Results - Last 24 Hours (Table) 09/25/22 09/25/22 09/26/22 Range/Units 09:08 09:08 05:55 Hgb 11.0 L (11.4-16.0) gm/dL RDW 16.5 H (11.5-15.5) % Sodium (137-145) mmol/L BUN (7-17) mg/dL Calcium (8.4-10.2) mg/dL C-Reactive Protein 8.0 H (<1.0) mg/dL Procalcitonin 0.16 H (0.02-0.09) ng/mL 09/26/22 Range/Units 05:55 Hgb (11.4-16.0) gm/dL RDW (11.5-15.5) % Sodium 134 L (137-145) mmol/L BUN 21 H (7-17) mg/dL Calcium 8.2 L (8.4-10.2) mg/dL C-Reactive Protein (<1.0) mg/dL Procalcitonin (0.02-0.09) ng/mL Microbiology - Last 24 Hours (Table) 09/24/22 14:30 Acid Fast Bacilli Smear - Final Bronchial Washings - Right Acid Fast Bacilli Culture - Preliminary 09/22/22 08:45 Gram Stain - Preliminary Sputum Sputum Culture - Preliminary Gram Neg Bacilli Aspergillus fumigatus 09/24/22 14:30 Gram Stain - Preliminary Bronchial Washings - Right Bronchial Washings Culture - Preliminary Assessment and Plan Assessment: Acute exacerbation of COPD, complicated by left suprahilar pneumonia. S/P bronchoscopy, airway examination, therapeutic lavage, and BAL, right middle lobe, 09/24/2022. Recent history of admission for pseudomonas aeruginosa pneumonia. Chronic fibrotic changes, left upper lobe, from previous stereotactic body radiotherapy, for lung malignancy. Hypertension. Previous history of heavy tobacco use. Hyperlipidemia. History of gastroesophageal reflux disease. Plan: Plan dated 09/20/2022. The patient continues on Symbicort, Zosyn, and albuterol updrafts. The patient also continues on GI prophylaxis with Protonix. We will continue to follow make recommendations along the way. We might consider bronchoscopy down the line should the patient not improve. We will continue to follow the patient. Prognosis is guarded. Plan dated 09/21/2022. The patient continues on albuterol sulfate, and ipratropium bromide breathing treatments. In addition, the patient is on Symbicort 160/4.5, 2 puffs twice a day. The patient's also getting Zosyn, as well as Lipitor, subcu heparin, and Protonix. We will continue to follow the patient closely. If the patient does not show improvement over the next day or so, we might consider bronchoscopy by the end of the week. Additional recommendations and suggestions are forthcoming. Prognosis is guarded. We discussed bronchoscopy today with the patient, and the patient's son. Plan dated 09/22/2022. The patient appears to be doing better. She was able to provide a sputum sample to the laboratory. The patient's on room air. She's not receiving any IV fluids. She continues on Zosyn, Symbicort, as well as albuterol sulfate and ipratropium bromide. Computed tomography scan done early on in this admission showed a consolidation in the anterior segment of the left upper lobe, and also at the right posterior lung base. The more recent chest x-ray shows a left suprahilar infiltrate. We will continue to follow make recommendations. She doesn't really seem excited about undergoing bronchoscopy and BAL. Plan dated 09/23/2022. The patient continues on appropriate medications, but is only slowly improving. Hence, the patient will undergo bronchoscopy, with airway examination therapeutic lavage and BAL tomorrow. The procedures explained to the patient. Her and her family agree. She'll be nothing by mouth after midnight. We'll make sure there is a consent on the chart. Additional recommendations and suggestions are forthcoming. Labs, x-rays, and medications are all reviewed. Plan dated 09/24/2022. The patient is going to have bronchoscopy with airway examination, therapeutic lavage, and BAL today. She remains on Zosyn. Her sputum sample showing evidence of gram-negative bacilli. It is yet to be identified. There is also some Aspergillus in the sputum. Labs, x-rays, and medications are reviewed. Hopeful discharge soon. We'll see how she responds with a bronchoscopy. Her other medications are appropriate. Plan dated 09/25/2022. The patient underwent bronchoscopy yesterday. She did very well with the procedure. She is very thick secretions noted throughout both right and left lung. There were suctioned. We did a formal BAL in the right middle lobe. There was no endobronchial masses or tumors. The airways were inflamed and erythematous. There is no bleeding. The patient is feeling much better today. She is on room air. Her cough is much more dry today. Additional recommendations and suggestions are forthcoming. Plan dated 09/26/2022. The patient continues on Zosyn. We await the results of the bronchoscopy and BAL. Clinically, the patient's doing much better. She's not on any IV fluids, and not requiring any supplemental oxygen. Her breathing is much improved. She has much less cough, and much less chest congestion. The patient continues on Zosyn. We will continue to follow and make recommendations along the way. We are hoping to get her discharged on Tuesday. Time with Patient: Less than 30
[2022-09-26] MEDS: SODIUM CHLORIDE 0.9% 1,000 ML IV SCH (15:26)
--- NOTE | 2022-09-26 17:38 | P.PN ---
Subjective Progress Note Date: 09/26/22 Principal diagnosis: Acute exacerbation COPD Left suprahilar pneumonia; status post bronchoscopy with BAL Recent history of Pseudomonas pneumonia 86-year-old female was admitted to hospital due to left upper lobe pneumonia. Patient was recently discharged from the hospital on 09/06/2022 and was treated for right lower lobe pneumonia and acute COPD exacerbation. Patient does have history of lung cancer. Status post left SBRT. Sputum cultures were growing Pseudomonas aeruginosa and urine culture showed Enterococcus faecalis at that time. 09/24/2022 Patient is seen and evaluated sitting up in bedside chair; scheduled to undergo a bronchoscopy with BAL today. The patient is still having lots of chest congestion, cough, and phlegm production. She is having a hard time getting the phlegm up. I explained the procedure to her yesterday, and her and her family were in agreement. White count 6.1, hemoglobin 11.1, hematocrit 33.9, and platelet count 283,000. Sodium 134, potassium 3.6, chlorides 101, CO2 26, BUN 22, and creatinine 0.78. Sputum shows evidence of gram-negative bacilli, and Aspergillus species. The patient is currently on Zosyn. Sputum specimen is positive for gram-negative bacilli and some Aspergillus; final culture and sensitivities pending 09/25/2022 Patient is seen and evaluated resting comfortably in bed; reports improvement in breathing post bronchoscopy with BAL yesterday which revealed thick secretions throughout the airways especially right middle lobe; samples have been sent for testing Vital signs are reviewed and stable with temperature of 98, pulse 88, respiration 18 and blood pressure 106/57; patient remains on IV Zosyn; sputum growing gram-negative bacillary SS Aspergillus Pulmonary on board plans for likely discharge in next 48 hours 09/26/2022 Patient is seen and evaluated in room at bedside; status post bronchoscopy with BAL on Tuesday. She's on room air. She's not receiving any IV fluids. She is on Zosyn. She's feeling much better. Much less chest congestion, cough, wheezing, and phlegm production. Her breathing is also much improved. On September 22 was positive for gram-negative bacilli. BAL sampling, still pending. The patient continues on Zosyn. We await the results of the bronchoscopy and BAL. Clinically, the patient's doing much better. She's not on any IV fluids, and not requiring any supplemental oxygen. Her breathing is much improved. She has much less cough, and much less chest congestion. The patient continues on Zosyn. We will continue to follow and make recommendations along the way. Possible discharge in next 24 hours if remains stable Objective - Vital Signs Vital signs: Vital Signs Temp 97.7 F 09/25/22 16:00 Pulse 78 09/26/22 08:27 Resp 19 09/26/22 04:00 BP 102/57 09/26/22 04:00 Pulse Ox 92 L 09/26/22 04:00 FiO2 21 09/25/22 19:52 Intake & Output 09/25/22 09/26/22 09/26/22 18:59 06:59 18:59 Intake Total 120 Output Total 0 Balance 120 Intake: Oral 120 Output: Urine 0 Stool 0 Urine/Stool Mix 0 Emesis 0 Other: Voiding Method Bedside Commode Bedside Commode # Voids 3 2 1 # Bowel Movements 2 1 - Exam HEENT: Normocephalic. Neck is supple. Pupils reactive. Nostrils clear. Oral cavity is moist. Neck reveals no JVD, carotid bruits, or thyromegaly. CHEST EXAMINATION: Trachea is central. Symmetrical expansion.Left upper lobe diminished sounds. Lung arevalo clear to auscultation and percussion. CARDIAC: Normal S1, S2 with no gallops. No murmurs ABDOMEN: Soft. Bowel sounds present. Nontender. No organomegaly. No abdominal bruits. Extremities: reveal no edema. No clubbing or cyanosis Neurologically awake, alert, oriented x3 with well-coordinated movements. No focal deficits noted Skin: No rash or skin lesions. Psychiatric: Coperative. Nonsuicidal, Musculoskeletal: No joint swelling or deformity. Normal range of motion. - Labs CBC & Chem 7: 09/26/22 05:55 09/26/22 05:55 Labs: Abnormal Lab Results - Last 24 Hours (Table) 09/25/22 09/26/22 09/26/22 Range/Units 09:08 05:55 05:55 Hgb 11.0 L (11.4-16.0) gm/dL RDW 16.5 H (11.5-15.5) % Sodium 134 L (137-145) mmol/L BUN 21 H (7-17) mg/dL Calcium 8.2 L (8.4-10.2) mg/dL Procalcitonin 0.16 H (0.02-0.09) ng/mL Microbiology - Last 24 Hours (Table) 09/24/22 14:30 Acid Fast Bacilli Smear - Final Bronchial Washings - Right Acid Fast Bacilli Culture - Preliminary 09/22/22 08:45 Gram Stain - Preliminary Sputum Sputum Culture - Preliminary Gram Neg Bacilli Aspergillus fumigatus 09/24/22 14:30 Gram Stain - Preliminary Bronchial Washings - Right Bronchial Washings Culture - Preliminary Assessment and Plan Assessment: Acute bilateral pneumonia COPD Recent admission with Pseudomonas rt lung pneumonia with sputum cultures positive for Pseudomonas. History of lung cancer status post left upper lobe SBRT Hypertension History of smoking Hyperlipidemia GERD DVT prophylaxis Heparin subcu Plan: Patient will be continued antibiotics - Zosyn. Continue with duo nebs and follow-up final sputum cultures and blood cultures have been negative so far. Pulmonary is on board. continue with GI and DVT prophylaxis. Follow-up closely. Pulmonary is planning for bronchoscopy today
[2022-09-26] MEDS: ATORVASTATIN 10 MG TAB PO SCH (20:28)
[2022-09-27] MEDS: PANTOPRAZOLE 40 MG TABLET PO SCH (06:35)
[2022-09-27 06:44] LABS: Calcium 8.2 mg/dL (8.4-10.2)
[2022-09-27] MEDS: IPRATROPIUM-ALBUTEROL 3 ML NEB INHALATION SCH ×4 (07:53→20:23)
[2022-09-27] MEDS: SYMBICORT 160-4.5 MCG INHALER INHALATION SCH ×2 (07:53→20:23)
[2022-09-27 08:02] LABS: Anisocytosis Slight; Basophils % (A) 1 %; Eosinophils # (A) 0.1 k/uL (0-0.7); Eosinophils % (A) 1 %; HCT 34.6 % (34.0-46.0); HGB 11.2 gm/dL (11.4-16.0); Hypochromasia Moderate; Lymphocytes % (A) 17 %; MCH 28.9 pg (25.0-35.0); MCHC 32.5 g/dL (31.0-37.0); Mean Platelet Volume 7.9; Monocytes # (A) 0.3 k/uL (0-1.0); Monocytes % (A) 4 %; Neutrophils # (A) 4.5 k/uL (1.3-7.7); Neutrophils % (A) 75 %; Platelet Count 219 k/uL (150-450); RBC 3.89 m/uL (3.80-5.40); RDW 16.4 % (11.5-15.5); WBC 6.1 k/uL (3.8-10.6)
--- NOTE | 2022-09-27 08:36 | P.PN ---
Subjective Progress Note Date: 09/25/22 Principal diagnosis: Pneumoia and UTI Patient is 86-year old female with a past medical history significant for COPD recent admission to the hospital with a pneumonia sputum was positive for Pseudomonas discharged on Cipro presenting back to the hospital with cough shortness of breath patient did have a CT of the chest with consolidation left upper lobe and right posterior lung. Patient is status post bronchoscopy and lavage completed on 09/24/2022 On today's evaluation that is 09/25/2022, the patient continues to be afebrile, the patient is breathing comfortably on room air , the patient denies chest pain the patient cough has decreased intensity and mostly dry in nature, the patient denies having abdominal pain and no diarrhea Objective - Vital Signs Vital signs: Vital Signs Temp 98.0 F 09/25/22 00:00 Pulse 88 09/25/22 11:55 Resp 18 09/25/22 02:58 BP 106/57 09/25/22 02:58 Pulse Ox 93 L 09/25/22 02:58 FiO2 Intake & Output 09/24/22 09/25/22 09/25/22 18:59 06:59 18:59 Intake Total 530 Balance 530 Intake: IV 50 Oral 480 Other: Voiding Method Bedside Commode Bedside Commode # Voids 1 2 1 # Bowel Movements 1 - Exam GENERAL DESCRIPTION elderly female lying in bed, no distress. No tachypnea or accessory muscle of respiration use. LUNGS: Unlabored breathing. Decreased breath sound the base HEART: S1, S2, regular rate and rhythm. No loud murmur ABDOMEN: Soft, no tenderness , guarding or rigidity, no organomegaly EXTREMITIES: No edema of feet. - Labs CBC & Chem 7: 09/27/22 07:14 09/27/22 05:33 Labs: Abnormal Lab Results - Last 24 Hours (Table) 09/25/22 Range/Units 09:08 C-Reactive Protein 8.0 H (<1.0) mg/dL Microbiology - Last 24 Hours (Table) 09/22/22 08:45 Gram Stain - Preliminary Sputum Sputum Culture - Preliminary Gram Neg Bacilli Aspergillus fumigatus 09/24/22 14:30 Gram Stain - Preliminary Bronchial Washings - Right Bronchial Washings Culture - Preliminary 09/24/22 14:30 Fungal Culture - Preliminary Bronchial Washings - Right 09/24/22 14:30 Acid Fast Bacilli Culture - Preliminary Bronchial Washings - Right 09/18/22 13:00 Blood Culture - Final Blood No Growth after 144 hours 09/18/22 13:15 Blood Culture - Final Blood No Growth after 144 hours Assessment and Plan (1) Pneumonia Current Visit: Yes Status: Acute Code(s): J18.9 - PNEUMONIA, UNSPECIFIED ORGANISM SNOMED Code(s): 966763331 Plan: 1patient with history of COPD recent admission to the hospital about 2 weeks ago and the patient was treated for pneumonia patient noticed to have a significant consolidation in the left upper lobe and right posterior lung on this admission with a previous sputum positive for Pseudomonas concern for possible incomplete resolution of episode of pneumonia. 2 The patient did have a elevated CRP and procalcitonin, sputum has been obtained culture currently growing gram-negative with ID sensitivities pending, also showing Aspergillus possible colonization 3patient has shown clinical improvement and will continue with Zosyn while waiting for BAL cultures to be finalized Time with Patient: Less than 30
--- NOTE | 2022-09-27 08:38 | P.PN ---
Subjective Progress Note Date: 09/26/22 Principal diagnosis: Pneumoia and UTI Patient is 86-year old female with a past medical history significant for COPD recent admission to the hospital with a pneumonia sputum was positive for Pseudomonas discharged on Cipro presenting back to the hospital with cough shortness of breath patient did have a CT of the chest with consolidation left upper lobe and right posterior lung. Patient is status post bronchoscopy and lavage completed on 09/24/2022 On today's evaluation that is 09/26/2022, the patient denies any fever or any chills, the patient is breathing comfortably on room air , the patient denies chest pain the patient cough has decreased intensity and not bringing up any sputum, the patient denies having abdominal pain and no diarrhea Objective - Vital Signs Vital signs: Vital Signs Temp 97.7 F 09/25/22 16:00 Pulse 78 09/26/22 08:27 Resp 19 09/26/22 04:00 BP 102/57 09/26/22 04:00 Pulse Ox 92 L 09/26/22 04:00 FiO2 21 09/25/22 19:52 Intake & Output 09/25/22 09/26/22 09/26/22 18:59 06:59 18:59 Intake Total 120 Output Total 0 Balance 120 Intake: Oral 120 Output: Urine 0 Stool 0 Urine/Stool Mix 0 Emesis 0 Other: Voiding Method Bedside Commode Bedside Commode # Voids 3 2 1 # Bowel Movements 2 1 - Exam GENERAL DESCRIPTION elderly female lying in bed, no distress. No tachypnea or accessory muscle of respiration use. LUNGS: Unlabored breathing. Decreased breath sound the base HEART: S1, S2, regular rate and rhythm. No loud murmur ABDOMEN: Soft, no tenderness , guarding or rigidity, no organomegaly EXTREMITIES: No edema of feet. - Labs CBC & Chem 7: 09/27/22 07:14 09/27/22 05:33 Labs: Abnormal Lab Results - Last 24 Hours (Table) 09/25/22 09/26/22 09/26/22 Range/Units 09:08 05:55 05:55 Hgb 11.0 L (11.4-16.0) gm/dL RDW 16.5 H (11.5-15.5) % Sodium 134 L (137-145) mmol/L BUN 21 H (7-17) mg/dL Calcium 8.2 L (8.4-10.2) mg/dL Procalcitonin 0.16 H (0.02-0.09) ng/mL Microbiology - Last 24 Hours (Table) 09/24/22 14:30 Acid Fast Bacilli Smear - Final Bronchial Washings - Right Acid Fast Bacilli Culture - Preliminary 09/22/22 08:45 Gram Stain - Preliminary Sputum Sputum Culture - Preliminary Gram Neg Bacilli Aspergillus fumigatus 09/24/22 14:30 Gram Stain - Preliminary Bronchial Washings - Right Bronchial Washings Culture - Preliminary Assessment and Plan (1) Pneumonia Current Visit: Yes Status: Acute Code(s): J18.9 - PNEUMONIA, UNSPECIFIED ORG ANISM SNOMED Code(s): 958139369 Plan: 1patient with history of COPD recent admission to the hospital about 2 weeks ago and the patient was treated for pneumonia patient noticed to have a significant consolidation in the left upper lobe and right posterior lung on this admission with a previous sputum positive for Pseudomonas concern for pos sible incomplete resolution of episode of pneumonia. 2 The patient did have a elevated CRP and procalcitonin, sputum has been obtained culture currently growing pseudomonas aeruginosa and Aspergillus species which is possible colonization 3patient has shown clinical improvement and keeping in mind extensive pneumonia and the patient failing of oral Cipro recently we will recommend obtaining a mi dline and continuation of IV antibiotic for 2 weeks of discharge Time with Patient: Less than 30
[2022-09-27] MEDS: SODIUM CHLORIDE 0.9% 1,000 ML IV SCH (08:48)
[2022-09-27] MEDS: HEPARIN SODIUM,PORCINE/PF 5,000 UNIT/0.5 ML SYRINGE SQ SCH ×3 (08:48→22:53)
--- NOTE | 2022-09-27 11:11 | P.PN ---
Subjective Progress Note Date: 09/27/22 This is an 86-year-old female seen by Dr. Sandoval on consultation back on 09/02/22, patient was seen for Pseudomonas pneumonia, and underlying COPD exacerbation. Patient was treated with proper antibiotics, her sputum was positive for Pseudomonas aeruginosa, patient was eventually discharged home on proper antibiotics. She was discharged on 09/06. Patient is also known to have history of lung CVA, involving left upper lobe and she had previous SB RT. This time the patient came in with similar symptoms including few days history of cough, cough is productive with yellow phlegm, chills but no fever, intermittent cough and wheezing. CT of the chest continued to show consolidation in the anterior segment of the left upper lobe also in the right posterior lung base. Patient had also underlying COPD and pulmonary fibrosis. Considering her symptoms, patient was admitted and this consult was initiated. Her WBC count is 8.7 her electrolytes are relatively normal renal profile is normal, pro-calc itonin level is pending. Patient did have abnormal urinalysis suggestive of acute urinary tract infection although the patient has no symptoms of UTI Progress note dated 09/20/2022. 86-year-old female seen by my partner yesterday in consultation. I saw her earlier in August, for Pseudomonas pneumonia and COPD exacerbation. She was discharged from the hospital on September 06, and does have a history of lung cancer, involving the left upper lobe, status post stereotactic body radiotherapy. The patient was readmitted with complaints of cough, yellow phlegm production, chills, and shortness of breath. CT of the chest continued to show consolidation in the anterior segment of the left upper lobe in the posterior lung base on the right. He was admitted with a diagnosis of pneumonia. White count 8.7, hemoglobin 11.2, hematocrit 35.2, platelet count 254,000. Sodium 135, potassium 3.4, chlorides 108, CO2 20, BUN 22, creatinine 0.87. The urine was yellow and cloudy, and there was a small amount of blood. Nitrite was negative. Leukocyte esterase was large positive. There were 53 W BCs, rare WBC clumps, and rare bacteria. Progress note dated 09/21/2022. 86-year-old female, well-known to our service. She's had a recent admission to the hospital for pneumonia, and COPD exacerbation. She was seen in consultation over the week and by my partner. She is seen again in room 360. She is feeling a bit better today. Labs today include a white count of 9.5, hemoglobin 12.2, hematocrit 37, and a platelet count of 251,000. Sodium 133, potassium 3.9, chlorides 103, CO2 23, BUN 12, creatinine 0.77. Pro-calcitonin level is 0.29. Blood cultures are currently negative. We did speak to the patient today about possible bronchoscopy as the week progresses, if she does not improve, and we also discussed this with the patient's son. Progress note dated 09/22/2022. 86-year-old female seen today in room 360. She is feeling better. She was able to provide a sputum sample. Her cough is less congested. We did speak to her about the possibility of bronchoscopy and BAL, should she not improve. She currently not receiving any IV fluids. She is currently on room air. No new laboratory data today. Blood and sputum cultures are thus far negative. Chest x-ray shows a infiltrate, and the left suprahilar area. Progress note dated 09/23/2022. 86-year-old female again seen in room 360. She's feeling a bit better, but not back to baseline. The plan is to do bronchoscopy, airway examination, therapeutic lavage, and BAL, tomorrow. I explained the procedure to the patient and the patient's family. They are in agreement. She's currently on room air. She's not receiving any IV fluids. She'll be nothing by mouth after midnight. We'll make sure that there is a consent on the chart. White count 9.3, hemoglobin 11.9, hematocrit 36.8, and platelet count 299,000. Sodium 134, potassium 3.8, chlorides 99, CO2 25, BUN 28, and creatinine 0.83. Chest x-ray from September 22, is reviewed, and shows a left suprahilar infiltrate. Progress note dated 09/24/2022. 86-year-old female seen in room 360. The patient is to undergo a bronchoscopy with BAL today. The patient is still having lots of chest congestion, cough, and phlegm production. She is having a hard time getting the phlegm up. I explained the procedure to her yesterday, and her and her family were in agreement. White count 6.1, hemoglobin 11.1, hematocrit 33.9, and platelet count 283,000. Sodium 134, potassium 3.6, chlorides 101, CO2 26, BUN 22, and creatinine 0.78. Sputum shows evidence of gram-negative bacilli, and Aspergillus species. The patient is currently on Zosyn. Progress note dated 09/25/2022. 86-year-old female seen in room 360. The patient had bronchoscopy with BAL yesterday. Sampling currently pending. She had thick secretions noted throughout the airways. We did do a BAL of the right middle lobe. She's feeling much better today, and her cough is very dry. Hopeful discharge in the near future. Currently, she is on Zosyn. There are some gram-negative bacilli in the sputum, as well as some Aspergillus. No new labs today other than a C- reactive protein of 8. Clinically, the patient's doing well. She is on room air. She's not receiving any IV fluids. She is a DO NOT RESUSCITATE patient. Progress note dated 09/26/2022. The patient is seen today in room 360. She had bronchoscopy with BAL on Tuesday. She's on room air. She's not receiving any IV fluids. She is on Zosyn. She's feeling much better. Much less chest congestion, cough, wheezing, and phlegm production. Her breathing is also much improved. On September 22 was positive for gram-negative bacilli. BAL sampling, still pending. On 09/27/2022, feeling much better. She is less short of breath. In fact she is on room air oxygen. Her sputum was positive for Pseudomonas and the patient remains on IV Zosyn. The pro calcitonin level has dropped from 0.29 down to 0.16. No significant cough or sputum production, and his sodium level is at 132 with a potassium level of 4 and a BUN of 18 and a creatinine of 0.8. The white cell count at 6.1 with a hemoglobin of 11.2. Bronchoscopy was done earlier in the sputum was positive for pseudomonas aeruginosa. Fluid cytology still pending. This is from the bronchial lavage was collected. She is a DNR/DNI CODE STATUS. A lavage of the right middle lobe was done during the bronchoscopy. Noted the patient also was found to have Aspergillus in his sputum which is probably a colonizer. Objective - Vital Signs Vital signs: Vital Signs Temp 97.8 F 09/27/22 08:00 Pulse 74 09/27/22 08:13 Resp 16 09/27/22 08:00 BP 79/41 09/27/22 08:00 Pulse Ox 96 09/27/22 08:00 FiO2 21 09/25/22 19:52 Intake & Output 09/26/22 09/27/22 09/27/22 18:59 06:59 18:59 Intake Total 720 240 Output Total 0 Balance 720 240 Intake: Oral 720 240 Output: Urine 0 Stool 0 Urine/Stool Mix 0 Emesis 0 Other: Voiding Method Bedside Commode Bedside Commode # Voids 1 1 1 # Bowel Movements 1 - Exam No acute distress, oriented 3. Currently not on any supplemental oxygen. No obvious distress. No use of accessory muscles. HEENT examination is grossly unremarkable. Neck supple. Full range of motion. No adenopathy thyromegaly or neck vein distention. Cardiovascular examination reveals regular rhythm rate. S1-S2 normal. No S3 or S4. No discernible murmur noted. Lungs reveal scattered bilateral diffuse rhonchi and expiratory wheezes. No crackles. Breath sounds equal bilaterally but diminished her out. Abdomen soft bowel sounds are heard. No masses or tenderness. Extremities are intact. No cyanosis clubbing or edema. Skin is without rash or lesion. Neurologic examination is brief but nonfocal. - Labs CBC & Chem 7: 09/27/22 07:14 09/27/22 05:33 Labs: Abnormal Lab Results - Last 24 Hours (Table) 09/27/22 09/27/22 Range/Units 05:33 07:14 Hgb 11.2 L (11.4-16.0) gm/dL RDW 16.4 H (11.5-15.5) % Sodium 132 L (137-145) mmol/L BUN 18 H (7-17) mg/dL Calcium 8.2 L (8.4-10.2) mg/dL Microbiology - Last 24 Hours (Table) 09/24/22 14:30 Gram Stain - Final Bronchial Washings - Right Bronchial Washings Culture - Final Pseudomonas aeruginosa 09/22/22 08:45 Gram Stain - Final Sputum Sputum Culture - Final Pseudomonas aeruginosa Aspergillus fumigatus Assessment and Plan Plan: Acute exacerbation of COPD, complicated by left suprahilar/right lower lobe pneumonia posterior segment and a sputum culture and the bronchial lavage both indicating pseudomonas aeruginosa. The Aspergillus in the sputum is probably a colonizer. S/P bronchoscopy, airway examination, therapeutic lavage, and BAL, right middle lobe, 09/24/2022. Chronic fibrotic changes, left upper lobe, from previous stereotactic body radiotherapy, for lung malignancy. Hypertension. Previous history of heavy tobacco use. Hyperlipidemia. History of gastroesophageal reflux disease. Plan: Clinically improving Continue IV Zosyn continue Symbicort Continue bronchodilators We'll discuss with IV May be able to restore antibiotics at time of discharge
[2022-09-27] MEDS: PIPERACILLIN-TAZOBACTAM 3.375 GM in SODIUM CHLORIDE 0.9% 100 ML IVPB SCH ×2 (12:59→15:15)
[2022-09-27] MEDS: ATORVASTATIN 10 MG TAB PO SCH (19:43)
[2022-09-27] MEDS: CEFEPIME 2 GM in SODIUM CHLORIDE 0.9% 100 ML IVPB SCH (22:53)
--- NOTE | 2022-09-28 00:13 | P.PN ---
Subjective 86-year-old female was admitted to hospital due to left upper lobe pneumonia. Patient was recently discharged from the hospital on 09/06/2022 and was treated for right lower lobe pneumonia and acute COPD exacerbation. Patient does have history of lung cancer. Status post left SBRT. Sputum cultures were growing Pseudomonas aeruginosa and urine culture showed Enterococcus faecalis at that time. 09/24/2022 Patient is seen and evaluated sitting up in bedside chair; scheduled to undergo a bronchoscopy with BAL today. The patient is still having lots of chest congestion, cough, and phlegm production. She is having a hard time getting the phlegm up. I explained the procedure to her yesterday, and her and her family were in agreement. White count 6.1, hemoglobin 11.1, hematocrit 33.9, and platelet count 283,000. Sodium 134, potassium 3.6, chlorides 101, CO2 26, BUN 22, and creatinine 0.78. Sputum shows evidence of gram-negative bacilli, and Aspergillus species. The patient is currently on Zosyn. Sputum specimen is positive for gram-negative bacilli and some Aspergillus; final culture and sensitivities pending 09/25/2022 Patient is seen and evaluated resting comfortably in bed; reports improvement in breathing post bronchoscopy with BAL yesterday which revealed thick secretions throughout the airways especially right middle lobe; samples have been sent for testing Vital signs are reviewed and stable with temperature of 98, pulse 88, respiration 18 and blood pressure 106/57; patient remains on IV Zosyn; sputum growing gram-negative bacillary SS Aspergillus Pulmonary on board plans for likely discharge in next 48 hours 09/26/2022 Patient is seen and evaluated in room at bedside; status post bronchoscopy with BAL on Tuesday. She's on room air. She's not receiving any IV fluids. She is on Zosyn. She's feeling much better. Much less chest congestion, cough, wheezing, and phlegm production. Her breathing is also much improved. On September 22 was positive for gram-negative bacilli. BAL sampling, still pending. The patient continues on Zosyn. We await the results of the bronchoscopy and BAL. Clinically, the patient's doing much better. She's not on any IV fluids, and not requiring any supplemental oxygen. Her breathing is much improved. She has much less cough, and much less chest congestion. The patient continues on Zosyn. We will continue to follow and make recommendations along the way. Possible discharge in next 24 hours if remains stable 09/27/22 pt is feeling better and she can be dc her culture from sputum is growing pseudomonas and her antibiotic were adjusted to cefepime as per id team labs and vitals are reviewed and look stable possible dc in 24-48 hours Objective - Vital Signs Vital signs: Vital Signs Temp 97.9 F 09/27/22 15:20 Pulse 92 09/27/22 19:43 Resp 19 09/27/22 19:43 BP 117/71 09/27/22 19:43 Pulse Ox 95 09/27/22 19:43 FiO2 21 09/25/22 19:52 Intake & Output 09/27/22 09/27/22 09/28/22 06:59 18:59 06:59 Intake Total 476 Balance 476 Intake: Oral 476 Other: Voiding Method Bedside Commode Bedside Commode # Voids 1 1 - Exam GENERAL: The patient is alert and oriented x3, not in any acute distress. Well developed, well nourished. HEENT: Pupils are round and equally reacting to light. EOMI. No scleral icterus. No conjunctival pallor. Normocephalic, atraumatic. No pharyngeal erythema. No thyromegaly. CARDIOVASCULAR: S1 and S2 present. No murmurs, rubs, or gallops. PULMONARY: Chest is clear to auscultation, no wheezing or crackles. ABDOMEN: Soft, nontender, nondistended, normoactive bowel sounds. No palpable organomegaly. MUSCULOSKELETAL: No joint swelling or deformity. EXTREMITIES: No cyanosis, clubbing, or pedal edema. NEUROLOGICAL: Gross neurological examination did not reveal any focal deficits. SKIN: No rashes. no petechiae. - Labs CBC & Chem 7: 09/27/22 07:14 09/27/22 05:33 Labs: Abnormal Lab Results - Last 24 Hours (Table) 09/27/22 09/27/22 Range/Units 05:33 07:14 Hgb 11.2 L (11.4-16.0) gm/dL RDW 16.4 H (11.5-15.5) % Sodium 132 L (137-145) mmol/L BUN 18 H (7-17) mg/dL Calcium 8.2 L (8.4-10.2) mg/dL Microbiology - Last 24 Hours (Table) 09/24/22 14:30 Fungal Culture - Preliminary Bronchial Washings - Right Agnes albicans Assessment and Plan Assessment: Acute bilateral pneumonia secondary to pseudomonas COPD no acute exacerbation Recent admission with Pseudomonas rt lung pneumonia with sputum cultures positive for Pseudomonas. History of lung cancer status post left upper lobe SBRT Hypertension History of smoking Hyperlipidemia GERD DVT prophylaxis Heparin subcu Plan: Patient will be need picc/midline and iv antibiotic for 2 weeks probably, as per ID TEAM recommendation upon discharge Pulmonary is on board. continue with GI and DVT prophylaxis. Follow-up closely. Pulmonary is on the case as well dvt px : sc heparin gi px: ppi dc disposition ;RONNA possible dc in 24-48 hr
[2022-09-28] MEDS: CEFEPIME 2 GM in SODIUM CHLORIDE 0.9% 100 ML IVPB SCH (05:54)
[2022-09-28] MEDS: PANTOPRAZOLE 40 MG TABLET PO SCH (05:54)
--- NOTE | 2022-09-28 08:08 | P.PN ---
Subjective Progress Note Date: 09/27/22 Principal diagnosis: Pneumoia and UTI Patient is 86-year old female with a past medical history significant for COPD recent admission to the hospital with a pneumonia sputum was positive for Pseudomonas discharged on Cipro presenting back to the hospital with cough shortness of breath patient did have a CT of the chest with consolidation left upper lobe and right posterior lung. Patient is status post bronchoscopy and lavage completed on 09/24/2022 On today's evaluation that is 09/27/2022, the patient remains to be afebrile, the patient is breathing comfortably on room air patient denies having any chest pain or shortness of breath occasional cough not bring up any sputum no nausea no vomiting no abdominal pain no diarrhea patient has lost her IV Objective - Vital Signs Vital signs: Vital Signs Temp 97.8 F 09/27/22 08:00 Pulse 74 09/27/22 08:13 Resp 16 09/27/22 08:00 BP 79/41 09/27/22 08:00 Pulse Ox 96 09/27/22 08:00 FiO2 21 09/25/22 19:52 Intake & Output 09/26/22 09/27/22 09/27/22 18:59 06:59 18:59 Intake Total 720 358 Output Total 0 Balance 720 358 Intake: Oral 720 358 Output: Urine 0 Stool 0 Urine/Stool Mix 0 Emesis 0 Other: Voiding Method Bedside Commode Bedside Commode # Voids 1 1 1 # Bowel Movements 1 - Exam GENERAL DESCRIPTION elderly female lying in bed, no distress. No tachypnea or accessory muscle of respiration use. LUNGS: Unlabored breathing. Decreased breath sound the base HEART: S1, S2, regular rate and rhythm. No loud murmur ABDOMEN: Soft, no tenderness , guarding or rigidity, no organomegaly EXTREMITIES: No edema of feet. - Labs CBC & Chem 7: 09/27/22 07:14 09/27/22 05:33 Labs: Abnormal Lab Results - Last 24 Hours (Table) 09/27/22 09/27/22 Range/Units 05:33 07:14 Hgb 11.2 L (11.4-16.0) gm/dL RDW 16.4 H (11.5-15.5) % Sodium 132 L (137-145) mmol/L BUN 18 H (7-17) mg/dL Calcium 8.2 L (8.4-10.2) mg/dL Microbiology - Last 24 Hours (Table) 09/24/22 14:30 Fungal Culture - Preliminary Bronchial Washings - Right Agnes albicans 09/24/22 14:30 Gram Stain - Final Bronchial Washings - Right Bronchial Washings Culture - Final Pseudomonas aeruginosa 09/22/22 08:45 Gram Stain - Final Sputum Sputum Culture - Final Pseudomonas aeruginosa Aspergillus fumigatus Assessment and Plan (1) Pneumonia Current Visit: Yes Status: Acute Code(s): J18.9 - PNEUMONIA, UNSPECIFIED ORGANISM SNOMED Code(s): 945051752 Plan: 1patient with history of COPD recent admission to the hospital about 2 weeks ago and the patient was treated for pneumonia patient noticed to have a significant consolidation in the left upper lobe and right posterior lung on this admission with a previous sputum positive for Pseudomonas concern for possible incomplete resolution of episode of pneumonia. 2 The patient did have a elevated CRP and procalcitonin, sputum has been obtained culture currently growing pseudomonas aeruginosa and Aspergillus species which is possible colonization 3Patient is slowly clinically improving with extensive pneumonia with a sputum positive for Pseudomonas aeruginosa we will obtain a midline plan is for 2 weeks of IV cefepime 2 g every 8 hours on discharge and close outpatient follow-up Time with Patient: Less than 30
[2022-09-28] MEDS: HEPARIN SODIUM,PORCINE/PF 5,000 UNIT/0.5 ML SYRINGE SQ SCH (08:22)
[2022-09-28] MEDS: IPRATROPIUM-ALBUTEROL 3 ML NEB INHALATION SCH ×2 (08:42→12:24)
[2022-09-28] MEDS: SYMBICORT 160-4.5 MCG INHALER INHALATION SCH (08:42)
[2022-09-28 09:31] VITALS: TEMP 97.6
[2022-09-28 11:26] VITALS: BP 96/56; PULSE 95; RESP 16
--- NOTE | 2022-09-28 12:11 | P.PN ---
Subjective Progress Note Date: 09/28/22 This is an 86-year-old female seen by Dr. Sandoval on consultation back on 09/02/22, patient was seen for Pseudomonas pneumonia, and underlying COPD exacerbation. Patient was treated with proper antibiotics, her sputum was positive for Pseudomonas aeruginosa, patient was eventually discharged home on proper antibiotics. She was discharged on 09/06. Patient is also known to have history of lung CVA, involving left upper lobe and she had previous SB RT. This time the patient came in with similar symptoms including few days history of cough, cough is productive with yellow phlegm, chills but no fever, intermittent cough and wheezing. CT of the chest continued to show consolidation in the anterior segment of the left upper lobe also in the right posterior lung base. Patient had also underlying COPD and pulmonary fibrosis. Considering her symptoms, patient was admitted and this consult was initiated. Her WBC count is 8.7 her electrolytes are relatively normal renal profile is normal, pro-calc itonin level is pending. Patient did have abnormal urinalysis suggestive of acute urinary tract infection although the patient has no symptoms of UTI Progress note dated 09/20/2022. 86-year-old female seen by my partner yesterday in consultation. I saw her earlier in August, for Pseudomonas pneumonia and COPD exacerbation. She was discharged from the hospital on September 06, and does have a history of lung cancer, involving the left upper lobe, status post stereotactic body radiotherapy. The patient was readmitted with complaints of cough, yellow phlegm production, chills, and shortness of breath. CT of the chest continued to show consolidation in the anterior segment of the left upper lobe in the posterior lung base on the right. He was admitted with a diagnosis of pneumonia. White count 8.7, hemoglobin 11.2, hematocrit 35.2, platelet count 254,000. Sodium 135, potassium 3.4, chlorides 108, CO2 20, BUN 22, creatinine 0.87. The urine was yellow and cloudy, and there was a small amount of blood. Nitrite was negative. Leukocyte esterase was large positive. There were 53 W BCs, rare WBC clumps, and rare bacteria. Progress note dated 09/21/2022. 86-year-old female, well-known to our service. She's had a recent admission to the hospital for pneumonia, and COPD exacerbation. She was seen in consultation over the week and by my partner. She is seen again in room 360. She is feeling a bit better today. Labs today include a white count of 9.5, hemoglobin 12.2, hematocrit 37, and a platelet count of 251,000. Sodium 133, potassium 3.9, chlorides 103, CO2 23, BUN 12, creatinine 0.77. Pro-calcitonin level is 0.29. Blood cultures are currently negative. We did speak to the patient today about possible bronchoscopy as the week progresses, if she does not improve, and we also discussed this with the patient's son. Progress note dated 09/22/2022. 86-year-old female seen today in room 360. She is feeling better. She was able to provide a sputum sample. Her cough is less congested. We did speak to her about the possibility of bronchoscopy and BAL, should she not improve. She currently not receiving any IV fluids. She is currently on room air. No new laboratory data today. Blood and sputum cultures are thus far negative. Chest x-ray shows a infiltrate, and the left suprahilar area. Progress note dated 09/23/2022. 86-year-old female again seen in room 360. She's feeling a bit better, but not back to baseline. The plan is to do bronchoscopy, airway examination, therapeutic lavage, and BAL, tomorrow. I explained the procedure to the patient and the patient's family. They are in agreement. She's currently on room air. She's not receiving any IV fluids. She'll be nothing by mouth after midnight. We'll make sure that there is a consent on the chart. White count 9.3, hemoglobin 11.9, hematocrit 36.8, and platelet count 299,000. Sodium 134, potassium 3.8, chlorides 99, CO2 25, BUN 28, and creatinine 0.83. Chest x-ray from September 22, is reviewed, and shows a left suprahilar infiltrate. Progress note dated 09/24/2022. 86-year-old female seen in room 360. The patient is to undergo a bronchoscopy with BAL today. The patient is still having lots of chest congestion, cough, and phlegm production. She is having a hard time getting the phlegm up. I explained the procedure to her yesterday, and her and her family were in agreement. White count 6.1, hemoglobin 11.1, hematocrit 33.9, and platelet count 283,000. Sodium 134, potassium 3.6, chlorides 101, CO2 26, BUN 22, and creatinine 0.78. Sputum shows evidence of gram-negative bacilli, and Aspergillus species. The patient is currently on Zosyn. Progress note dated 09/25/2022. 86-year-old female seen in room 360. The patient had bronchoscopy with BAL yesterday. Sampling currently pending. She had thick secretions noted throughout the airways. We did do a BAL of the right middle lobe. She's feeling much better today, and her cough is very dry. Hopeful discharge in the near future. Currently, she is on Zosyn. There are some gram-negative bacilli in the sputum, as well as some Aspergillus. No new labs today other than a C- reactive protein of 8. Clinically, the patient's doing well. She is on room air. She's not receiving any IV fluids. She is a DO NOT RESUSCITATE patient. Progress note dated 09/26/2022. The patient is seen today in room 360. She had bronchoscopy with BAL on Tuesday. She's on room air. She's not receiving any IV fluids. She is on Zosyn. She's feeling much better. Much less chest congestion, cough, wheezing, and phlegm production. Her breathing is also much improved. On September 22 was positive for gram-negative bacilli. BAL sampling, still pending. On 09/27/2022, feeling much better. She is less short of breath. In fact she is on room air oxygen. Her sputum was positive for Pseudomonas and the patient remains on IV Zosyn. The pro calcitonin level has dropped from 0.29 down to 0.16. No significant cough or sputum production, and his sodium level is at 132 with a potassium level of 4 and a BUN of 18 and a creatinine of 0.8. The white cell count at 6.1 with a hemoglobin of 11.2. Bronchoscopy was done earlier in the sputum was positive for pseudomonas aeruginosa. Fluid cytology still pending. This is from the bronchial lavage was collected. She is a DNR/DNI CODE STATUS. A lavage of the right middle lobe was done during the bronchoscopy. Noted the patient also was found to have Aspergillus in his sputum which is probably a colonizer. 09/28/2022, the patient remains on room and oxygen. As mentioned earlier, pro calcitonin level was dropping and the patient was found to have Pseudomonas in her sputum and she is currently on IV Zosyn. Bronchoscopy was done confirming pneumonias aeruginosa. She is a DNR/DNI CODE STATUS. I later on found out the patient was switched from IV Zosyn to IV cefepime. No other complaints otherwise for now. A repeat chest x-ray and is to be done at 1.2 monitor the pulmonary infiltrates discussed earlier. She is tolerating her diet. She has a good appetite. She has minimal congested cough. Unable to bring up much sputum. No other significant events since yesterday. Objective - Vital Signs Vital signs: Vital Signs Temp 97.6 F 09/28/22 08:20 Pulse 95 09/28/22 11:05 Resp 16 09/28/22 11:05 BP 96/56 09/28/22 11:05 Pulse Ox 92 L 09/28/22 11:05 FiO2 21 09/25/22 19:52 Intake & Output 09/27/22 09/28/22 09/28/22 18:59 06:59 18:59 Intake Total 476 236 Output Total 200 Balance 476 36 Intake: Oral 476 236 Output: Urine 200 Other: Voiding Method Bedside Commode Bedside Commode # Voids 1 1 1 # Bowel Movements 1 - Exam No acute distress, oriented 3. Currently not on any supplemental oxygen. No obvious distress. No use of accessory muscles. HEENT examination is grossly unremarkable. Neck supple. Full range of motion. No adenopathy thyromegaly or neck vein distention. Cardiovascular examination reveals regular rhythm rate. S1-S2 normal. No S3 or S4. No discernible murmur noted. Lungs reveal scattered bilateral diffuse rhonchi and expiratory wheezes. No crackles. Breath sounds equal bilaterally but diminished her out. Abdomen soft bowel sounds are heard. No masses or tenderness. Extremities are intact. No cyanosis clubbing or edema. Skin is without rash or lesion. Neurologic examination is brief but nonfocal. - Labs CBC & Chem 7: 09/27/22 07:14 09/27/22 05:33 Labs: Microbiology - Last 24 Hours (Table) 09/24/22 14:30 Fungal Culture - Preliminary Bronchial Washings - Right Agnes albicans Assessment and Plan Plan: Acute exacerbation of COPD, complicated by left suprahilar/right lower lobe pneumonia posterior segment and a sputum culture and the bronchial lavage both indicating pseudomonas aeruginosa. The Aspergillus in the sputum is probably a colonizer. S/P bronchoscopy, airway examination, therapeutic lavage, and BAL, right middle lobe, 09/24/2022. Chronic fibrotic changes, left upper lobe, from previous stereotactic body radiotherapy, for lung malignancy. Hypertension. Previous history of heavy tobacco use. Hyperlipidemia. History of gastroesophageal reflux disease. Plan: Clinically improving Continue IV cefepime continue Symbicort Continue bronchodilators Repeat CXR Discharge planning is in progress. Duration of antibiotics per ID.
--- NOTE | 2022-09-28 12:43 | P.DS ---
Providers Date of admission: 09/18/22 15:13 Attending physician: Bernardo Modi MD Consults: 09/18/22 15:10 Consult Physician Routine Consulting Provider: Lottie Eason Consult Reason/Comments: Pneumonia Do you want consulting provider notified?: Yes 09/18/22 15:11 Consult Physician Routine Consulting Provider: [facility] Consult Reason/Comments: Elevated troponin, EKG changes Do you want consulting provider notified?: Yes 09/18/22 16:45 Consult Physician Routine Consulting Provider: Meng Patiño Consult Reason/Comments: recurrent pneumonia Do you want consulting provider notified?: Yes Primary care physician: Dali Akins Hospital Course: Diagnoses: Acute bilateral pneumonia secondary to pseudomonas COPD no acute exacerbation Recent admission with Pseudomonas rt lung pneumonia with sputum cultures positive for Pseudomonas. History of lung cancer status post left upper lobe SBRT Hypertension History of smoking Hyperlipidemia GERD Hospital course 86-year-old female was admitted to hospital due to left upper lobe pneumonia. Patient was recently discharged from the hospital on 09/06/2022 and was treated for right lower lobe pneumonia and acute COPD exacerbation. Patient does have history of lung cancer. Status post left SBRT. Sputum cultures were growing Pseudomonas aeruginosa and urine culture showed Enterococcus faecalis at that time. 09/24/2022 Patient is seen and evaluated sitting up in bedside chair; scheduled to undergo a bronchoscopy with BAL today. The patient is still having lots of chest congestion, cough, and phlegm production. She is having a hard time getting the phlegm up. I explained the procedure to her yesterday, and her and her family were in agreement. White count 6.1, hemoglobin 11.1, hematocrit 33.9, and platelet count 283,000. Sodium 134, potassium 3.6, chlorides 101, CO2 26, BUN 22, and creatinine 0.78. Sputum shows evidence of gram-negative bacilli, and Aspergillus species. The patient is currently on Zosyn. Sputum specimen is positive for gram-negative bacilli and some Aspergillus; final culture and sensitivities pending 09/25/2022 Patient is seen and evaluated resting comfortably in bed; reports improvement in breathing post bronchoscopy with BAL yesterday which revealed thick secretions throughout the airways especially right middle lobe; samples have been sent for testing Vital signs are reviewed and stable with temperature of 98, pulse 88, respiration 18 and blood pressure 106/57; patient remains on IV Zosyn; sputum growing gram-negative bacillary SS Aspergillus Pulmonary on board plans for likely discharge in next 48 hours 09/26/2022 Patient is seen and evaluated in room at bedside; status post bronchoscopy with BAL on Tuesday. She's on room air. She's not receiving any IV fluids. She is on Zosyn. She's feeling much better. Much less chest congestion, cough, wheezing, and phlegm production. Her breathing is also much improved. On September 22 was positive for gram-negative bacilli. BAL sampling, still pending. The patient continues on Zosyn. We await the results of the bronchoscopy and BAL. Clinically, the patient's doing much better. She's not on any IV fluids, and not requiring any supplemental oxygen. Her breathing is much improved. She has much less cough, and much less chest congestion. The patient continues on Zosyn. We will continue to follow and make recommendations along the way. Possible discharge in next 24 hours if remains stable 09/27/22 pt is feeling better and she can be dc her culture from sputum is growing pseudomonas and her antibiotic were adjusted to cefepime as per id team labs and vitals are reviewed and look stable possible dc in 24-48 hours 09/28/2022 Patient breathing is improving, she is back to baseline or close to baseline. No other new symptoms Vitals stable. I discussed the case with pulmonary team and they cleared her for discharge Patient has left arm PICC line/midline. Patient can be discharged once ID team cleared the patient and decide about duration of antibiotics (conditional discharge) Plan - Discharge Summary Discharge Rx Participant: No New Discharge Prescriptions: New Ipratropium-Albuterol Nebulize [Duoneb 0.5 mg-3 mg/3 ml Soln] 3 ml INHALATION RT-Q2H PRN each PRN Reason: Shortness Of Breath Or Wheezing Cefepime [Maxipime] 2 gm IVPB Q8H #42 each Continue Simvastatin [Zocor] 20 mg PO HS Ondansetron Odt [Zofran ODT] 4 mg PO Q8HR PRN PRN Reason: Nausea Albuterol Inhaler [Ventolin Hfa Inhaler] 2 puff INHALATION RT-Q4H PRN PRN Reason: Shortness Of Breath Or Wheezing Omeprazole 20 mg PO DAILY Budesonide-Formot 160-4.5 Mcg [Symbicort 160-4.5 Mcg Inhaler] 2 puff INHALATION RT-BID Discontinued amLODIPine [Norvasc] 5 mg PO DAILY Discharge Medication List Simvastatin [Zocor] 20 mg PO HS 11/03/20 [History] Omeprazole 20 mg PO DAILY 08/18/22 [History] Ondansetron Odt [Zofran ODT] 4 mg PO Q8HR PRN 08/18/22 [History] Albuterol Inhaler [Ventolin Hfa Inhaler] 2 puff INHALATION RT-Q4H PRN 09/01/22 [History] Budesonide-Formot 160-4.5 Mcg [Symbicort 160-4.5 Mcg Inhaler] 2 puff INHALATION RT-BID 09/01/22 [History] Cefepime [Maxipime] 2 gm IVPB Q8H #42 each 09/27/22 [Rx] Ipratropium-Albuterol Nebulize [Duoneb 0.5 mg-3 mg/3 ml Soln] 3 ml INHALATION RT-Q2H PRN each 09/27/22 [Rx] Follow up Appointment(s)/Referral(s): Lottie Eason MD [STAFF PHYSICIAN] - 1 Week Dali Akins DO [Primary Care Provider] - 1-2 days Meng Patiño MD [STAFF PHYSICIAN] - 1 Week Activity/Diet/Wound Care/Special Instructions: heart healthy diet activity is restricted till you see your doctor
[2022-09-28 15:59] LABS: Aspergillus fumagatus IgE <0.10 kU/L
[2022-09-28] MEDS ORDERED: CEFEPIME 2 GM in SODIUM CHLORIDE 0.9% 100 ML IVPB SCH (18:00)
--- NOTE | 2022-09-30 08:19 | CDI ---
Documentation Clarification Form Date: 09/30/2022 08:00:00 AM From: Nati Rodríguez Admit Date: 09/18/2022 03:13:00 PM Patient Name: Patricia Oh Visit Number: [id number] Discharge Date: 09/28/2022 03:14:00 PM ATTENTION: The Clinical Documentation Specialists (CDI) and [facility] Coding Staff appreciate your assistance in clarifying documentation. Please respond to the clarification below the line at the bottom and electronically sign. The CDI & [facility] Coding staff will review the response and follow-up if needed. Please note: Queries are made part of the Legal Health Record. If you have any questions, please contact the author of this message via ITS. Dr. Levi Concepcion NSTEMI believed to be secondary due to pneumonia is documented in Cardiac consult 09/19. Additional clarification is needed. Patient History/Risk Factors: Clinical Indicators: Troponin: .063, .054, .048 EKG Results: Atrial fib, Incomplete RBBB, Abnormal EKG Treatment: Heparin 5000 units SQ Q8HR Please clarify if patient had NSTEMI or NSTEMI Type II CA [ ] Type 2 CA due to pneumonia [ ] NSTEMI [ ] Type 2 CA due to other (please specify ) [x ] Unable to determine [ ] Other Condition, please specify MTDD
== END 2022-09-28 15:14 | DRG 177 ==
LOC: EC 12:29 → 3SCARD 15:13
PROVIDERS: ADMIT Internal Medicine; ATTEND Internal Medicine
PROC: 0B9D8ZZ Drainage of Right Middle Lung Lobe, Via Natural or Artificial Opening Endoscopic (ICD-10-PCS; principal; 2022-09-24 14:05)
DX: J15.1 Pneumonia due to Pseudomonas (principal); I21.4 Non-ST elevation (NSTEMI) myocardial infarction; J44.0 Chronic obstructive pulmonary disease with (acute) lower respiratory infection; N39.0 Urinary tract infection, site not specified; J20.8 Acute bronchitis due to other specified organisms; E78.5 Hyperlipidemia, unspecified; Z20.822 Contact with and (suspected) exposure to COVID-19; Z28.310 Unvaccinated for COVID-19; E86.0 Dehydration; I10 Essential (primary) hypertension; I45.10 Unspecified right bundle-branch block; J84.10 Pulmonary fibrosis, unspecified; K21.9 Gastro-esophageal reflux disease without esophagitis; R56.9 Unspecified convulsions; Z66 Do not resuscitate; Z79.51 Long term (current) use of inhaled steroids; Z79.899 Other long term (current) drug therapy; Z82.49 Family history of ischemic heart disease and other diseases of the circulatory system; Z85.118 Personal history of other malignant neoplasm of bronchus and lung; Z86.73 Personal history of transient ischemic attack (TIA), and cerebral infarction without residual deficits; Z87.01 Personal history of pneumonia (recurrent); Z87.891 Personal history of nicotine dependence; Z88.6 Allergy status to analgesic agent; Z71.3 Dietary counseling and surveillance; Z90.2 Acquired absence of lung [part of]
CPT/HCPCS: 31624; 36410; 36415; 71045; 71046; 71250; 76937; 80048; 80053; 81001; 83605; 84145; 84484; 85025; 85610; 85730; 86003; 86140; 86606; 87040; 87070; 87077; 87102; 87116; 87186; 87205; 87206; 87252; 87496; 87498; 87502; 87529; 87634; 87635; 87798; 88108; 88305; 89050; 93005; 93306; 94640; 94760; 96365; 96366; 96367; 99285

== ENCOUNTER → 2023-03-10 | Outpatient (CLI) | payer MEDICARE, BC ==
--- NOTE | 2023-03-10 15:59 | CT ---
EXAMINATION TYPE: CT ChestAbdPelvis wo con DATE OF EXAM: 03/10/2023 COMPARISON: 09/18/2022 HISTORY: Personal history of malig carcinoid tumor CT DLP: 354.8mGycm Unenhanced CT of the Chest, Abdomen and Pelvis Unenhanced CT of the chest ,abdomen and pelvis is performed. The lack of intravenous contrast limits evaluation of the solid and hollow viscera. Oral contrast: None CT Chest: LUNGS: Wedge-shaped airspace consolidation left upper lobe anteromedially is unchanged. Resolution of basilar infiltrate seen previously. Moderate hyperinflation compatible with COPD. Scattered subpleur al fibrosis. No evidence for mass or nodule. No new infiltrates seen. MEDIASTINUM: Thoracic aorta is of normal caliber. The heart is enlarged. Calcific changes of the mi tral valve annulus. Fixed hiatal hernia. No evidence for mediastinal mass or adenopathy. HILAR STRUCTURES: No evidence for mass. No hilar adenopathy is appreciated. OTHER: No significant abnormality. CONTRAST CT ABDOMEN AND PELVIS: LIVER/GB: The gallbladder is surgically absent. No space occupying hepatic lesion. Biliary tree is of normal caliber. PANCREAS: No inflammation. No distinct mass. SPLEEN: No splenic enlargement. No lesion seen. ADRENALS: No nodule. No thickening. KIDNEYS/BLADDER: No hydronephrosis. No nephrolithiasis. No disctinct renal mass. BOWEL: Normal appendix. Normal bowel caliber. No inflammation. GENITAL ORGANS: Hysterectomy changes noted of the uterus. LYMPH NODES: No greater than 1cm abdominal or pelvic lymph nodes areappreciated. AORTA: No significant abnormality. OSSEOUS STRUCTURES: Multilevel degenerative disc disease with anterolisthesis L5 on S1. OTHER: Right hip prosthesis with streak artifact resulting in the pelvic exam limitation. IMPRESSION: 1. Left upper lobe air space consolidation remains unchanged. Additional areas of consolidation seen previously have resolved. 2. Scattered subpleural fibrosis and COPD.
== END | disposition home or self-care (01) ==
LOC: RADCTMAIN 12:44
PROVIDERS: ATTEND Family Medicine
DX: J44.9 Chronic obstructive pulmonary disease, unspecified (principal); J84.10 Pulmonary fibrosis, unspecified; M54.59 Other low back pain; R91.8 Other nonspecific abnormal finding of lung field; Z85.110 Personal history of malignant carcinoid tumor of bronchus and lung; Z90.49 Acquired absence of other specified parts of digestive tract
CPT/HCPCS: 71250; 74176

== ENCOUNTER 2023-09-02 11:42 | Emergency (ER) | payer BC, MEDICARE ==
[2023-09-02] MEDS ORDERED: ONDANSETRON 4 MG/2 ML VIAL IVP STA (11:57)
[2023-09-02] MEDS ORDERED: SODIUM CHLORIDE 0.9% 500 ML 500 ML IV STA (11:57)
--- NOTE | 2023-09-02 12:06 | ED ---
Recheck HPI - General Chief Complaint: Recheck/Abnormal Lab/Rx Stated Complaint: Vomiting Time Seen by Provider: 09/02/23 11:53 Source: patient, RN notes reviewed Mode of arrival: ambulatory Limitations: no limitations - History of Present Illness Initial Comments: This is an 87-year-old female who presents to the emergency department for left hip pain. Patient states that she's had problems with left hip pain for years, and was told that she had a bad hip and likely needed a replacement at some point. Over the last couple of days, she has noticed that her lower leg and left foot have been swollen, and she believes that it may be coming from the hip. She is still able to use her walker to get around. She is not taking anything for the pain. Denies any chest pain or shortness of breath. Additionally, she has been feeling nauseous. However, states that she's had ongoing nausea and vomiting for years and this is due to a "bad stomach". She is not concerned about this, and states that this is an ongoing issue for her. She does occasionally take nausea medication, but has not done so recently. Denies any fevers, chills, sore throat, cough, dyspnea, chest pain, palpitations, abdominal pain, diarrhea, back pain, or headaches. - Related Data Home Medications Medication Instructions Recorded Confirmed Simvastatin [Zocor] 20 mg PO HS 11/03/20 09/02/23 Omeprazole 20 mg PO DAILY 08/18/22 09/02/23 amLODIPine [Norvasc] 5 mg PO DAILY 09/02/23 09/02/23 Previous Rx's Medication Instructions Recorded Furosemide [Lasix] 20 mg PO DAILY 5 Days #5 tab 09/02/23 Ondansetron Odt [Zofran Odt] 4 mg PO Q8HR PRN #15 tab 09/02/23 Allergies Allergy/AdvReac Type Severity Reaction Status Date / Time aspirin AdvReac Nausea & Verified 09/02/23 13:44 Vomiting Review of Systems ROS Statement: Those systems with pertinent positive or pertinent negative responses have been documented in the HPI. ROS Other: All systems not noted in ROS Statement are negative. Past Medical History Past Medical History: GERD/Reflux, Hyperlipidemia, Hypertension Additional Past Medical History / Comment(s): lung ca History of Any Multi-Drug Resistant Organisms: None Reported Past Surgical History: Cholecystectomy, Tonsillectomy Additional Past Surgical History / Comment(s): stomach, thyroid tumor, rt hip replacemnt - Past Anesthesia/Blood Transfusion Reactions: No Reported Reaction Past Psychological History: No Psychological Hx Reported Smoking Status: Former smoker Past Alcohol Use History: None Reported Past Drug Use History: None Reported - Past Family History Family Family Medical History: Coronary Artery Disease (CAD) General Exam Limitations: no limitations General appearance: alert, in no apparent distress Head exam: Present: atraumatic, normocephalic, normal inspection Respiratory exam: Present: normal lung sounds bilaterally. Absent: respiratory distress, wheezes, rales, rhonchi, stridor Cardiovascular Exam: Present: regular rate, normal rhythm, normal heart sounds. Absent: systolic murmur, diastolic murmur, rubs, gallop, clicks Extremities exam: Present: other (2+ pitting edema to the distal most aspect of the left tib-fib and foot. Minor tenderness. 2+ DP and PT pulses. Capillary refill less than 1 second.) Neurological exam: Present: alert, oriented X3, CN II-XII intact Psychiatric exam: Present: normal affect, normal mood Course Vital Signs 09/02/23 09/02/23 11:43 14:17 Temperature 98.2 F 98.9 F Pulse Rate 98 77 Respiratory 18 16 Rate Blood Pressure 135/79 132/75 O2 Sat by Pulse 97 97 Oximetry Medical Decision Making - Medical Decision Making This is an 87-year-old female who presents to the emergency department for left hip pain and nausea. Was pt. sent in by a medical professional or institution? @ -No Did you speak to anyone other than the patient for history? @ -No Did you review nursing and triage notes? @ -Yes, and I agree, it is accurate with regards to the patient's symptoms. Were old charts reviewed? @ -No Differential Diagnosis? @ -Differential Hip Pain: Fracture, dislocation, osteoarthritis, rheumatoid arthritis, septic arthritis, gout, synovitis, piriformis syndrome, bursitis, arterial occlusion, DVT, femoroacetabular inpingement, labral tear, avascular necrosis, SI joint dysfunction, this is not meant to be an all-inclusive list. EKG interpreted by me (3pts min.)? @ -Not obtained X-rays interpreted by me (1pt min.)? @ -X-ray of the left hip obtained. My interpretation identifies no acute fractures. CT interpreted by me (1pt min.)? @ -Not obtained U/S interpreted by me (1pt. min.)? @ -Duplex US of the left lower extremity obtained. My interpretation identifies no evidence of a DVT. What testing was considered but not performed? (CT, X-rays, U/S, labs)? Why? @ -None What meds were considered but not given? Why? @ -None Did you discuss the management of the patient with other professionals? @ -No Did you reconcile home meds? @ -No Was smoking cessation discussed for >3mins.? @ -No Was critical care preformed (if so, how long)? @ -No Were there social determinants of health that impacted care today? How? (Homelessness, low income, unemployed, alcoholism, drug addiction, transportation, low edu. Level, literacy, decrease access to med. care, [facility], rehab)? @ -No Was there de-escalation of care discussed even if they declined? (Discuss DNR or withdrawal of care, Hospice)? @ -No What co-morbidities impacted this encounter? (DM, HTN, Smoking, COPD, CAD, Cancer, CVA, Hep., AIDS, mental health diagnosis, sleep apnea, morbid obesity)? @ -Osteoarthritis, GERD Was patient admitted / discharged? @ -Discharged. Lab work obtained and found to be nonactionable. Nausea was well controlled with IV fluids and Zofran and she was tolerating oral intake afterwards. X-ray of the left hip obtained revealing osteoarthritis without other acute process. Duplex ultrasound of the left lower extremity obtained as well revealing no evidence of a DVT. She is advised to follow-up with her PCP and orthopedic surgeon for reevaluation. She did request a prescription for Lasix to help with the swelling. This was provided. Advised she take this in the morning, as it will increase her urination. She was also given a prescription for Zofran with dosing instructions reviewed for management of the nausea. Patient discharged in stable condition. Undiagnosed new problem with uncertain prognosis? @ -None Drug Therapy requiring intensive monitoring for toxicity (Heparin, Nitro, Insulin, Cardizem)? @ -None Were any procedures done? @ -None Diagnosis/symptom? @ -Left leg pain and swelling Acute, or Chronic, or Acute on Chronic? @ -Acute Uncomplicated (without systemic symptoms) or Complicated (systemic symptoms)? @ -Uncomplicated Side effects of treatment? @ -None Exacerbation, Progression, or Severe Exacerbation] @ -Not applicable Poses a threat to life or bodily function? @ -Unlikely Diagnosis/symptom? @ -Nausea and vomiting Acute, or Chronic, or Acute on Chronic? @ -Acute on chronic Uncomplicated (without systemic symptoms) or Complicated (systemic symptoms)? @ -Uncomplicated Side effects of treatment? @ -None Exacerbation, Progression, or Severe Exacerbation] @ -Exacerbation Poses a threat to life or bodily function? @ -No Return precautions reviewed in depth, the patient is instructed to return to the emergency department with any new, worsening, or concerning symptoms. Patient verbalized understanding. This case was discussed in detail with the attending ED physician, Dr. Hernandez. Presentation, findings, and treatment plan discussed in detail as well. - Lab Data Result diagrams: 09/02/23 12:39 09/02/23 12:39 Lab Results 09/02/23 09/02/23 Range/Units 12:39 12:39 WBC 7.7 (3.8-10.6) k/uL RBC 4.33 (3.80-5.40) m/uL Hgb 12.9 (11.4-16.0) gm/dL Hct 38.6 (34.0-46.0) % MCV 89.1 (80.0-100.0) fL MCH 29.9 (25.0-35.0) pg MCHC 33.5 (31.0-37.0) g/dL RDW 13.1 (11.5-15.5) % Plt Count 270 (150-450) k/uL MPV 7.7 Neutrophils % 60 % Lymphocytes % 31 % Monocytes % 6 % Eosinophils % 1 % Basophils % 1 % Neutrophils # 4.6 (1.3-7.7) k/uL Lymphocytes # 2.4 (1.0-4.8) k/uL Monocytes # 0.5 (0-1.0) k/uL Eosinophils # 0.1 (0-0.7) k/uL Basophils # 0.1 (0-0.2) k/uL Sodium 137 (137-145) mmol/L Potassium 3.6 (3.5-5.1) mmol/L Chloride 102 (98-107) mmol/L Carbon Dioxide 24 (22-30) mmol/L Anion Gap 11 mmol/L BUN 19 H (7-17) mg/dL Creatinine 0.82 (0.52-1.04) mg/dL Est GFR (CKD-EPI)AfAm 76 (>60 ml/min/1.73 sqM) Est GFR (CKD-EPI)NonAf 66 (>60 ml/min/1.73 sqM) Glucose 111 H (74-99) mg/dL Calcium 9.0 (8.4-10.2) mg/dL Total Bilirubin 0.4 (0.2-1.3) mg/dL AST 22 (14-36) U/L ALT 16 (4-34) U/L Alkaline Phosphatase 81 (38-126) U/L Total Protein 6.2 L (6.3-8.2) g/dL Albumin 3.4 L (3.5-5.0) g/dL - Radiology Data Radiology results: report reviewed, image reviewed Disposition Clinical Impression: Nausea and vomiting, Left leg swelling Disposition: HOME SELF-CARE Instructions (If sedation given, give patient instructions): Acute Nausea and Vomiting (ED), Leg Edema (ED) Additional Instructions: Return to the emergency department with any new, worsening, or concerning symptoms. You can take the Zofran up to every 8 hours as needed for nausea and vomiting. You will take the Lasix once daily to help with the swelling. Try to take this in the morning and be aware that it will make you urinate much more than normal. Follow up with your primary care provider in 1-2 days. Prescriptions: Furosemide [Lasix] 20 mg PO DAILY 5 Days #5 tab Ondansetron Odt [Zofran Odt] 4 mg PO Q8HR PRN #15 tab PRN Reason: Nausea And Vomiting Is patient prescribed a controlled substance at d/c from ED?: No Referrals: None,Stated [Primary Care Provider] - 1-2 days
--- NOTE | 2023-09-02 12:22 | XR ---
EXAMINATION TYPE: XR Hip Complete LT DATE OF EXAM: 09/02/2023 CLINICAL HISTORY: pain TECHNIQUE: AP and frogleg views of the left hip are obtained. COMPARISON: 09/01/22 FINDINGS: There is no acute fracture/dislocation evident. The joint space appears within normal li mits. The overlying soft tissue appears unremarkable. IMPRESSION: 1. There is no acute fracture or dislocation.ICD 10 NO FRACTURE, INITIAL EVALUATION
[2023-09-02 12:46] LABS: Basophils # (A) 0.1 k/uL (0-0.2); Basophils % (A) 1 %; Eosinophils # (A) 0.1 k/uL (0-0.7); Eosinophils % (A) 1 %; HCT 38.6 % (34.0-46.0); HGB 12.9 gm/dL (11.4-16.0); Lymphocytes # (A) 2.4 k/uL (1.0-4.8); Lymphocytes % (A) 31 %; MCH 29.9 pg (25.0-35.0); MCHC 33.5 g/dL (31.0-37.0); MCV 89.1 fL (80.0-100.0); Mean Platelet Volume 7.7; Monocytes # (A) 0.5 k/uL (0-1.0); Monocytes % (A) 6 %; Neutrophils # (A) 4.6 k/uL (1.3-7.7); Neutrophils % (A) 60 %; Platelet Count 270 k/uL (150-450); RBC 4.33 m/uL (3.80-5.40); RDW 13.1 % (11.5-15.5); WBC 7.7 k/uL (3.8-10.6)
[2023-09-02 13:07] LABS: ALT 16 U/L (4-34); AST 22 U/L (14-36); African American GFR (CKD) 76 (>60 ml/min/1.73 sqM); Albumin 3.4 g/dL (3.5-5.0); Alkaline Phosphatase 81 U/L (38-126); Anion Gap 11 mmol/L; Blood Urea Nitrogen 19 mg/dL (7-17); Carbon Dioxide 24 mmol/L (22-30); Chloride 102 mmol/L (98-107); Glucose 111 mg/dL (74-99); Non-African American GFR(CKD) 66 (>60 ml/min/1.73 sqM); Potassium 3.6 mmol/L (3.5-5.1); Sodium 137 mmol/L (137-145); Total Bilirubin 0.4 mg/dL (0.2-1.3); Total Protein 6.2 g/dL (6.3-8.2)
--- NOTE | 2023-09-02 13:14 | US ---
EXAMINATION TYPE: US venous doppler duplex LE LT DATE OF EXAM: 09/02/2023 1:08 PM COMPARISON: 01/07/2023 CLINICAL INDICATION: Female, 87 years old with history of Pain; SIDE PERFORMED: Left TECHNIQUE: The lower extremity deep venous system is examined utilizing real time linear array sonog garret with graded compression, doppler sonography and color-flow sonography. VESSELS IMAGED: Common Femoral Vein Deep Femoral Vein Greater Saphenous Vein * Femoral Vein Popliteal Vein Small Saphenous Vein * Proximal Calf Veins (* superficial vessels) Left Leg: Negative for DVT IMPRESSION: 1. No diagnostic evidence of DVT.
[2023-09-02] MEDS ORDERED: ONDANSETRON 4 MG ODT STARTER PACK 2 TAB BTL PO STA (13:44)
[2023-09-02] MEDS ORDERED: FUROSEMIDE 20 MG TAB PO STA (13:44)
[2023-09-02 14:19] VITALS: BP 132/75; PULSE 77; RESP 16; TEMP 98.9
== END 2023-09-02 14:38 | disposition home or self-care (01) ==
LOC: EC 11:42
DX: R11.2 Nausea with vomiting, unspecified (principal); R22.42 Localized swelling, mass and lump, left lower limb; E78.5 Hyperlipidemia, unspecified; I10 Essential (primary) hypertension; K21.9 Gastro-esophageal reflux disease without esophagitis; Z87.891 Personal history of nicotine dependence; Z88.6 Allergy status to analgesic agent; Z79.899 Other long term (current) drug therapy; Z90.49 Acquired absence of other specified parts of digestive tract
CPT/HCPCS: 36415; 80053; 85025; 73502; 93971; 99284; 96374; J2405; S0119

== ENCOUNTER 2023-10-12 14:39 | Inpatient (IN) | payer MEDICARE, OTHER ==
[2023-10-12] MEDS ORDERED: ONDANSETRON 4 MG/2 ML VIAL IVP STA (15:32)
[2023-10-12] MEDS ORDERED: SODIUM CHLORIDE 0.9% 1,000 ML IV STA (15:32)
--- NOTE | 2023-10-12 15:58 | ED ---
Nausea/Vomiting/Diarrhea HPI - General Chief complaint: Nausea/Vomiting/Diarrhea Stated complaint: vomiting,abd pain Time Seen by Provider: 10/12/23 15:32 Source: patient, RN notes reviewed, old records reviewed Mode of arrival: ambulatory Limitations: no limitations - History of Present Illness Initial comments: This is a 87-year-old female to the emergency department for evaluation significant weakness persistent nausea vomiting diarrhea increased dizziness lightheadedness especially with activity. Persistent weakness here in the emergency department today. Patient has no travel history no sick contacts no fevers no other complaints aside from abdominal pain MD complaint: nausea, vomiting, abdominal pain -: days(s) Associated Abdominal Pain: Yes Location: diffuse Radiation: none Severity: moderate Severity scale (1-10): 4 Consistency: constant Improves with: none Worsens with: none Associated Symptoms: loss of appetite, nausea/vomiting, weakness - Related Data Home Medications Medication Instructions Recorded Confirmed Simvastatin [Zocor] 20 mg PO HS 11/03/20 10/12/23 Omeprazole 20 mg PO DAILY 08/18/22 10/12/23 amLODIPine [Norvasc] 5 mg PO DAILY 09/02/23 10/12/23 Previous Rx's Medication Instructions Recorded Docusate [Colace] 100 mg PO BID 30 Days #60 cap 10/16/23 Lactulose 20 gm PO DAILY PRN 7 Days #210 ml 10/16/23 Ondansetron Odt [Zofran Odt] 4 mg PO Q8HR PRN #10 tab 10/18/23 Allergies Allergy/AdvReac Type Severity Reaction Status Date / Time aspirin AdvReac Nausea & Verified 10/12/23 18:53 Vomiting Review of Systems ROS Statement: Those systems with pertinent positive or pertinent negative responses have been documented in the HPI. ROS Other: All systems not noted in ROS Statement are negative. Past Medical History Past Medical History: GERD/Reflux, Hyperlipidemia, Hypertension Additional Past Medical History / Comment(s): lung ca History of Any Multi-Drug Resistant Organisms: None Reported Past Surgical History: Cholecystectomy, Tonsillectomy Additional Past Surgical History / Comment(s): stomach, thyroid tumor, rt hip replacemnt - Past Anesthesia/Blood Transfusion Reactions: No Reported Reaction Past Psychological History: No Psychological Hx Reported Smoking Status: Former smoker Past Alcohol Use History: None Reported Past Drug Use History: None Reported - Past Family History Family Family Medical History: Coronary Artery Disease (CAD) General Exam Limitations: no limitations General appearance: alert, in no apparent distress, anxious Head exam: Present: atraumatic, normocephalic, normal inspection Eye exam: Present: normal appearance, PERRL, EOMI. Absent: scleral icterus, conjunctival injection, periorbital swelling ENT exam: Present: normal exam, mucous membranes moist Neck exam: Present: normal inspection. Absent: tenderness, meningismus, lymphadenopathy Respiratory exam: Present: normal lung sounds bilaterally. Absent: respiratory distress, wheezes, rales, rhonchi, stridor Cardiovascular Exam: Present: regular rate, normal rhythm, normal heart sounds. Absent: systolic murmur, diastolic murmur, rubs, gallop, clicks GI/Abdominal exam: Present: soft, normal bowel sounds. Absent: distended, tenderness, guarding, rebound, rigid Extremities exam: Present: normal inspection, full ROM, normal capillary refill. Absent: tenderness, pedal edema, joint swelling, calf tenderness Back exam: Present: normal inspection Neurological exam: Present: alert, oriented X3, CN II-XII intact Psychiatric exam: Present: normal affect, normal mood Skin exam: Present: warm, dry, intact, normal color. Absent: rash Course Vital Signs 10/12/23 10/12/23 10/12/23 15:05 16:43 18:34 Temperature 97.5 F L Pulse Rate 92 102 H 66 Respiratory 18 18 18 Rate Blood Pressure 111/73 150/71 130/57 O2 Sat by Pulse 96 98 94 L Oximetry 10/12/23 21:00 Temperature Pulse Rate 78 Respiratory 16 Rate Blood Pressure 143/80 O2 Sat by Pulse 98 Oximetry - Reevaluation(s) Reevaluation #1: 10/12/23 19:21 Medical record is reviewed Reevaluation #2: 10/12/23 19:21 Patient symptoms are unchanged Reevaluation #3: 10/12/23 19:21 Patient informed results questions answered Reevaluation #4: 10/12/23 19:21 Was pt. sent in by a medical professional or institution (, PA, INSTALLER TECHNICIAN, urgent care, hospital, or halfway...) When possible be specific @ -no Did you speak to anyone other than the patient for history (EMS, parent, family, police, friend...)? What history was obtained from this source @ -no Did you review nursing and triage notes (agree or disagree)? Why? @ -agree Are old charts reviewed (outside hosp., previous admission, EMS record, old EKG, old radiological studies, urgent care reports/EKG's, halfway records)? Report findings @ -yes Differential Diagnosis (chest pain, altered mental status, abdominal pain women, abdominal pain men, vaginal bleeding, weakness, fever, dyspnea, syncope, headache, dizziness, GI bleed, back pain, seizure, CVA, palpatations, mental health, musculoskeletal)? @ -prior EKG interpreted by me (3pts min.). @ -yes X-rays interpreted by me (1pt min.). @ -yes CT interpreted by me (1pt min.). @ -yes U/S interpreted by me (1pt. min.). @ -no What testing was considered but not performed or refused? (CT, X-rays, U/S, labs)? Why? @ -none What meds were considered but not given or refused? Why? @ -none Did you discuss the management of the patient with other professionals (professionals i.e. , PA, INSTALLER TECHNICIAN, lab, RT, psych nurse, social service liaison, refinery operator crude unit, teacher, environmental compliance officer, case monitor)? Give summary @ -no Was smoking cessation discussed for >3mins.? @ -no Was critical care preformed (if so, how long)? @ -no Were there social determinants of health that impacted care today? How? (Homelessness, low income, unemployed, alcoholism, drug addiction, transportation, low edu. Level, literacy, decrease access to med. care, prison, rehab)? @ -none Was there de-escalation of care discussed even if they declined (Discuss DNR or withdrawal of care, Hospice)? DNR status @ -no What co-morbidities impacted this encounter? (DM, HTN, Smoking, COPD, CAD, Cancer, CVA, ARF, Chemo, Hep., AIDS, mental health diagnosis, sleep apnea, morbid obesity)? @ -none Was patient admitted / discharged? Hospital course, mention meds given and route, prescriptions, significant lab abnormalities, going to OR and other pertinent info. @ - 87 female will be admitted for persistent nausea vomiting diarrhea weakness and abdominal pain. Symptomatic management Admitted Undiagnosed new problem with uncertain prognosis? @ -no Drug Therapy requiring intensive monitoring for toxicity (Heparin, Nitro, In sulin, Cardizem)? @ -no Were any procedures done? @ -no Diagnosis/symptom? @ -Nausea vomiting diarrhea and weakness Acute, or Chronic, or Acute on Chronic? @ -Acute Uncomplicated (without systemic symptoms) or Complicated (systemic symptoms)? @ -Complicated Side effects of treatment? @ -no Exacerbation, Progression, or Severe Exacerbation? @ -exacerbation Poses a threat to life or bodily function? How? (Chest pain, USA, SC, pneumonia, PE, COPD, DKA, ARF, appy, cholecystitis, CVA, Diverticulitis, Homicidal, Suicidal, threat to staff... and all critical care pts) @ -yes with extremes of age Reevaluation #5: 10/12/23 19:21 Differential Weakness: Hypoglycemia, shock, sepsis, hyponatremia, anemia, infection, SC, ETOH, adverse medicine reaction, overdose, stroke, this is not meant to be an all-inclusive list. - Consultations Consultation #1: spoke with who will admit this patient Medical Decision Making - Medical Decision Making 87 female will be admitted for persistent nausea vomiting diarrhea weakness and abdominal pain. Symptomatic management - Lab Data Result diagrams: 10/16/23 07:20 10/16/23 07:20 Lab Results 10/12/23 10/12/23 10/12/23 Range/Units 15:43 15:43 15:43 WBC 7.8 (3.8-10.6) k/uL RBC 5.22 (3.80-5.40) m/uL Hgb 15.3 (11.4-16.0) gm/dL Hct 45.8 (34.0-46.0) % MCV 87.7 (80.0-100.0) fL MCH 29.3 (25.0-35.0) pg MCHC 33.3 (31.0-37.0) g/dL RDW 13.7 (11.5-15.5) % Plt Count 233 (150-450) k/uL MPV 7.8 Neutrophils % 49 % Lymphocytes % 43 % Monocytes % 5 % Eosinophils % 1 % Basophils % 1 % Neutrophils # 3.8 (1.3-7.7) k/uL Lymphocytes # 3.4 (1.0-4.8) k/uL Monocytes # 0.4 (0-1.0) k/uL Eosinophils # 0.1 (0-0.7) k/uL Basophils # 0.0 (0-0.2) k/uL PT 10.0 (10.0-12.5) sec INR 0.9 (<1.2) APTT 24.6 (22.0-30.0) sec Sodium 139 (137-145) mmol/L Potassium 5.1 (3.5-5.1) mmol/L Chloride 100 (98-107) mmol/L Carbon Dioxide 29 (22-30) mmol/L Anion Gap 10 mmol/L BUN 23 H (7-17) mg/dL Creatinine 0.97 (0.52-1.04) mg/dL Est GFR (CKD-EPI)AfAm 62 (>60 ml/min/1.73 sqM) Est GFR (CKD-EPI)NonAf 54 (>60 ml/min/1.73 sqM) Glucose 100 H (74-99) mg/dL Plasma Lactic Acid Sajan (0.7-2.0) mmol/L Calcium 10.6 H (8.4-10.2) mg/dL Phosphorus 4.5 (2.5-4.5) mg/dL Magnesium 1.8 (1.6-2.3) mg/dL Total Bilirubin 0.4 (0.2-1.3) mg/dL AST 22 (14-36) U/L ALT 14 (4-34) U/L Alkaline Phosphatase 88 (38-126) U/L Troponin I (0.000-0.034) ng/mL NT-Pro-B Natriuret Pep 1860 pg/mL Total Protein 7.2 (6.3-8.2) g/dL Albumin 4.3 (3.5-5.0) g/dL Lipase 68 (23-300) U/L TSH 2.100 (0.465-4.680) mIU/L Urine Color Urine Appearance (Clear) Urine pH (5.0-8.0) Ur Specific [place] (1.001-1.035) Urine Protein (Negative) Urine Glucose (UA) (Negative) Urine Ketones (Negative) Urine Blood (Negative) Urine Nitrite (Negative) Urine Bilirubin (Negative) Urine Urobilinogen (<2.0) mg/dL Ur Leukocyte Esterase (Negative) Urine RBC (0-5) /hpf Urine WBC (0-5) /hpf Ur Squamous Epith Cells (0-4) /hpf Urine Bacteria (None) /hpf Urine Mucus (None) /hpf 10/12/23 10/12/23 10/12/23 Range/Units 15:43 15:43 15:56 WBC (3.8-10.6) k/uL RBC (3.80-5.40) m/uL Hgb (11.4-16.0) gm/dL Hct (34.0-46.0) % MCV (80.0-100.0) fL MCH (25.0-35.0) pg MCHC (31.0-37.0) g/dL RDW (11.5-15.5) % Plt Count (150-450) k/uL MPV Neutrophils % % Lymphocytes % % Monocytes % % Eosinophils % % Basophils % % Neutrophils # (1.3-7.7) k/uL Lymphocytes # (1.0-4.8) k/uL Monocytes # (0-1.0) k/uL Eosinophils # (0-0.7) k/uL Basophils # (0-0.2) k/uL PT (10.0-12.5) sec INR (<1.2) APTT (22.0-30.0) sec Sodium (137-145) mmol/L Potassium (3.5-5.1) mmol/L Chloride (98-107) mmol/L Carbon Dioxide (22-30) mmol/L Anion Gap mmol/L BUN (7-17) mg/dL Creatinine (0.52-1.04) mg/dL Est GFR (CKD-EPI)AfAm (>60 ml/min/1.73 sqM) Est GFR (CKD-EPI)NonAf (>60 ml/min/1.73 sqM) Glucose (74-99) mg/dL Plasma Lactic Acid Sajan 1.5 (0.7-2.0) mmol/L Calcium (8.4-10.2) mg/dL Phosphorus (2.5-4.5) mg/dL Magnesium (1.6-2.3) mg/dL Total Bilirubin (0.2-1.3) mg/dL AST (14-36) U/L ALT (4-34) U/L Alkaline Phosphatase (38-126) U/L Troponin I 0.016 (0.000-0.034) ng/mL NT-Pro-B Natriuret Pep pg/mL Total Protein (6.3-8.2) g/dL Albumin (3.5-5.0) g/dL Lipase (23-300) U/L TSH (0.465-4.680) mIU/L Urine Color Colorless Urine Appearance Cloudy H (Clear) Urine pH 7.0 (5.0-8.0) Ur Specific [place] 1.022 (1.001-1.035) Urine Protein Negative (Negative) Urine Glucose (UA) Negative (Negative) Urine Ketones Negative (Negative) Urine Blood Negative (Negative) Urine Nitrite Positive H (Negative) Urine Bilirubin Negative (Negative) Urine Urobilinogen <2.0 (<2.0) mg/dL Ur Leukocyte Esterase Negative (Negative) Urine RBC 2 (0-5) /hpf Urine WBC 2 (0-5) /hpf Ur Squamous Epith Cells <1 (0-4) /hpf Urine Bacteria Occasional H (None) /hpf Urine Mucus Rare H (None) /hpf - EKG Data -: EKG Interpreted by Me (EKG is sinus 84 [place] 222 QRS 112 QTc 401) Disposition Clinical Impression: Dehydration, Generalized weakness, Nausea & vomiting, Gastroenteritis, UTI (urinary tract infection) Disposition: ADMITTED IP TO THIS HOSP Condition: Stable Is patient prescribed a controlled substance at d/c from ED?: No Time of Disposition: 19:20
[2023-10-12 16:05] LABS: Basophils % (A) 1 %; Eosinophils # (A) 0.1 k/uL (0-0.7); Eosinophils % (A) 1 %; HCT 45.8 % (34.0-46.0); HGB 15.3 gm/dL (11.4-16.0); Lymphocytes # (A) 3.4 k/uL (1.0-4.8); Lymphocytes % (A) 43 %; MCH 29.3 pg (25.0-35.0); MCHC 33.3 g/dL (31.0-37.0); MCV 87.7 fL (80.0-100.0); Mean Platelet Volume 7.8; Monocytes # (A) 0.4 k/uL (0-1.0); Monocytes % (A) 5 %; Neutrophils # (A) 3.8 k/uL (1.3-7.7); Neutrophils % (A) 49 %; Platelet Count 233 k/uL (150-450); RBC 5.22 m/uL (3.80-5.40); RDW 13.7 % (11.5-15.5); WBC 7.8 k/uL (3.8-10.6)
[2023-10-12 16:21] LABS: INR 0.9 (<1.2); Partial Thromboplastin Time 24.6 sec (22.0-30.0)
[2023-10-12 16:26] LABS: ALT 14 U/L (4-34); African American GFR (CKD) 62 (>60 ml/min/1.73 sqM); Albumin 4.3 g/dL (3.5-5.0); Alkaline Phosphatase 88 U/L (38-126); Anion Gap 10 mmol/L; Blood Urea Nitrogen 23 mg/dL (7-17); Calcium 10.6 mg/dL (8.4-10.2); Carbon Dioxide 29 mmol/L (22-30); Chloride 100 mmol/L (98-107); Glucose 100 mg/dL (74-99); Lipase 68 U/L (23-300); Magnesium 1.8 mg/dL (1.6-2.3); Non-African American GFR(CKD) 54 (>60 ml/min/1.73 sqM); Phosphorus 4.5 mg/dL (2.5-4.5); Potassium 5.1 mmol/L (3.5-5.1); Sodium 139 mmol/L (137-145); Total Bilirubin 0.4 mg/dL (0.2-1.3); Total Protein 7.2 g/dL (6.3-8.2)
--- NOTE | 2023-10-12 16:28 | XR ---
EXAMINATION TYPE: XR chest 2V DATE OF EXAM: 10/12/2023 COMPARISON: 01/06/2023 HISTORY: 87-year-old female with weakness TECHNIQUE: AP and lateral views FINDINGS: Heart normal size. S-shaped scoliosis. Some patchy suprahilar opacity remains unchanged, likely under lying chronic fibrosis. Concurrent hyperinflation in keeping with COPD. 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 No definite acute change.
[2023-10-12] MEDS ORDERED: PANTOPRAZOLE 40 MG/10 ML VIAL IVP STA (16:33)
[2023-10-12] MEDS ORDERED: MORPHINE SULFATE 4 MG/ML SYRINGE IVP STA (16:33)
[2023-10-12 16:35] LABS: NT-Pro-B-Type Natriuretic Pept 1860 pg/mL
[2023-10-12 17:09] LABS: AST 22 U/L (14-36)
--- NOTE | 2023-10-12 17:58 | CT ---
EXAMINATION TYPE: CT abdomen pelvis wo con CT DLP: 443 mGycm, Automated exposure control for dose reduction was used. DATE OF EXAM: 10/12/2023 5:37 PM COMPARISON: CT abdomen pelvis most recent from 03/10/2023. CLINICAL INDICATION:Female, 87 years old with history of pain; Abdominal pain, n/v and fatigue x3days . TECHNIQUE: Axial CT of the ;CT abdomen pelvis wo con;Sagittal and coronal reformats were created on a separate workstation. Contrast used: mL of , (none if empty) Oral contrast used: without Oral Contrast (none if empty) FINDINGS: LOWER CHEST: There is severe coronary artery atherosclerosis with mitral valve annular cusp patient's nurse repair changes. Calcification of aortic valve. ABDOMEN LIVER: Unremarkable GALLBLADDER AND BILE DUCTS: The gallbladder surgically absent. PANCREAS: Unremarkable. SPLEEN: Unremarkable. ADRENAL GLANDS: Unremarkable. KIDNEYS AND URETERS: No evidence of hydronephrosis or renal calculus. The ureters are unremarkable. PELVIS BLADDER: Unremarkable REPRODUCTIVE: Unremarkable. ABDOMEN & PELVIS STOMACH AND BOWEL: No evidence of bowel obstruction. Scattered colonic diverticula. There is a modera te to large amount of stool throughout the colon. PERITONEUM/RETROPERITONEUM: No evidence of pneumoperitoneum or free fluid. VASCULATURE: Moderate atherosclerotic calcifications are present throughout the abdominal aorta and i ts branches. No evidence of aortic aneurysm. MUSCULOSKELETAL: No acute osseous abnormalities right hip arthroplasty hardware appears intact. LYMPH NODES: No gross evidence for lymphadenopathy. SOFT TISSUE/ABDOMINAL WALL: Unremarkable IMPRESSION: 1. No evidence for acute abdominal process. 2. Moderate to large amount stool throughout the colon. 3. Colonic diverticulosis. 4. Severe coronary artery atherosclerosis.
[2023-10-12] MEDS ORDERED: NALOXONE 0.4 MG/ML 1 ML VIAL IV PRN (19:08)
[2023-10-12] MEDS ORDERED: ONDANSETRON 4 MG/2 ML VIAL IVP PRN (19:08)
[2023-10-12 21:17] LABS: Appearance,Urine Cloudy (Clear); Bacteria,Urine Occasional /hpf; Bilirubin,Urine Negative (Negative); Blood,Urine Negative (Negative); Color,Urine Colorless; Glucose,Urine (UA) Negative (Negative); Ketones,Urine Negative (Negative); Leukocyte Esterase,Urine Negative (Negative); Mucus,Urine Rare /hpf; Nitrite,Urine Positive (Negative); Protein,Urine Negative (Negative); RBC,Urine 2 /hpf (0-5); Specific Gravity,Urine 1.022 (1.001-1.035); Squamous Epithelial Cell,Urine <1 /hpf (0-4); Urobilinogen,Urine <2.0 mg/dL (<2.0); WBC,Urine 2 /hpf (0-5)
[2023-10-12] MEDS: MORPHINE SULFATE 4 MG/ML SYRINGE IV PRN (22:00)
[2023-10-13] MEDS: MORPHINE SULFATE 4 MG/ML SYRINGE IV PRN (07:00)
[2023-10-13] MEDS: SODIUM CHLORIDE 0.9% 1,000 ML IV SCH ×2 (07:08→19:51)
[2023-10-13] MEDS: PANTOPRAZOLE 40 MG/10 ML VIAL IV SCH (08:35)
[2023-10-13 13:14] LABS: Basophils # (A) 0.09 X 10*3/uL (0.00-0.10); Basophils % (A) 1.4 %; Eosinophils # (A) 0.21 X 10*3/uL (0.04-0.35); Eosinophils % (A) 3.4 %; HGB 12.8 g/dL (12.0-15.0); Lymphocytes # (A) 3.06 X 10*3/uL (0.90-5.00); Lymphocytes % (A) 49.3 %; MCH 28.1 pg (27.0-32.0); MCHC 31.2 g/dL (32.0-37.0); MCV 89.9 FL (80.0-97.0); Mean Platelet Volume 11.2 FL (9.5-12.2); Monocytes # (A) 0.55 X 10*3/uL (0.20-1.00); Monocytes % (A) 8.9 %; NRBC Per 100 WBC 0 X 10*3/uL (0.00-0.01); Neutrophils # (A) 2.28 X 10*3/uL (1.80-7.70); Neutrophils % (A) 36.7 %; Platelet Count 246 X 10*3/uL (140-440); RBC 4.56 X 10*6/uL (4.10-5.20); WBC 6.21 X 10*3/uL (4.50-10.00)
[2023-10-13 13:32] VITALS: BMI 19.0
[2023-10-13 13:55] LABS: ALT 11 U/L (8-44); AST 15 U/L (13-35); Albumin 3.6 g/dL (3.8-4.9); Alkaline Phosphatase 66 U/L (41-126); Blood Urea Nitrogen 17.1 mg/dL (9.0-27.0); Calcium 9.3 mg/dL (8.7-10.3); Carbon Dioxide 24.8 mmol/L (21.6-31.8); Chloride 104 mmol/L (96-109); Glucose 74 mg/dL (70-110); Lipase 18 U/L (14-63); Magnesium 1.7 mg/dL (1.5-2.4); Phosphorus 3.9 mg/dL (2.4-5.1); Potassium 4.5 mmol/L (3.5-5.5); Sodium 140 mmol/L (135-145); Total Bilirubin 0.2 mg/dL (0.3-1.2); Total Protein 5.6 g/dL (6.2-8.2)
[2023-10-13] MEDS ORDERED: NA PHOS,M-B/NA PHOS,DI-BA 133 ML ENEMA RECTAL ONE (14:00)
--- NOTE | 2023-10-13 17:38 | P.HPIM ---
History of Present Illness H&P Date: 10/13/23 Patricia Oh, is an 87-year-old female who presented to [facility] emergency room with a chief complaint of nausea or vomiting severe weakness. She was evaluated in the emergency room vital examination on presentation revealed a temperature of 97.5 pulse 92 respiration 18 blood pressure 111/73 pulse ox 96% on room air Laboratory data reveals white blood count 7.8 hemoglobin 15.3 platelet count 233 BUN 23 creatinine 0.97 Testing in the emergency room revealed computed tomography scan of the abdomen and pelvis revealed no evidence for acute abdominal process with moderate to l arge amount of stools throughout the colon Patient was admitted to medical floor for further evaluation and treatment 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22, was in a sanatorium for 9 months History of Any Multi-Drug Resistant Organisms: None Reported Past Surgical History: Cholecystectomy, Tonsillectomy Additional Past Surgical History / Comment(s): stomach ulcer repair about 25 years ago, was on life support and a feeding tube, has midline repair scar; also thyroid tumor, rt hip replacement - Past Anesthesia/Blood Transfusion Reactions: No Reported Reaction Past Psychological History: No Psychological Hx Reported Smoking Status: Former smoker Past Alcohol Use History: None Reported Past Drug Use History: None Reported - Past Family History Family Family Medical History: Coronary Artery Disease (CAD) Medications and Allergies Home Medications Medication Instructions Recorded Confirmed Type Simvastatin [Zocor] 20 mg PO HS 11/03/20 10/12/23 History Omeprazole 20 mg PO DAILY 08/18/22 10/12/23 History amLODIPine [Norvasc] 5 mg PO DAILY 09/02/23 10/12/23 History Allergies Allergy/AdvReac Type Severity Reaction Status Date / Time aspirin AdvReac Nausea & Verified 10/12/23 18:53 Vomiting Physical Exam Vitals: Vital Signs Temp Pulse Pulse Resp BP BP BP 10/13/23 11:55 98.5 F 67 16 109/60 10/13/23 08:20 103/51 91/48 10/13/23 07:27 98.1 F 60 17 99/56 10/13/23 02:00 99.5 F 61 16 101/57 10/12/23 22:00 97.7 F 148/73 10/12/23 21:00 78 16 143/80 10/12/23 18:34 66 18 130/57 10/12/23 16:43 102 H 18 150/71 10/12/23 15:05 97.5 F L 92 18 111/73 Pulse Ox 10/13/23 11:55 100 10/13/23 08:20 10/13/23 07:27 96 10/13/23 02:00 99 10/12/23 22:00 98 10/12/23 21:00 98 10/12/23 18:34 94 L 10/12/23 16:43 98 10/12/23 15:05 96 Intake and Output 10/12/23 10/13/23 10/13/23 22:59 06:59 14:59 Other: Voiding Method External Catheter # Voids 1 Weight 47.174 kg In general patient is alert and oriented x 3 in no distress HEENT head normocephalic and atraumatic Neck is supple no JVD no goiter no lymphadenopathy no carotid bruit Chest examination is clear to auscultation no crackles no wheezing Cardiac exam reveals regular heart sounds S1 and S2 no gallops no murmurs Abdomen is soft nontender no organomegaly with normal bowel sounds Extremity exam reveals no edema no cyanosis or clubbing Neurological examination reveals no gross focal deficits Results CBC & Chem 7: 10/13/23 06:54 10/13/23 06:54 Labs: Abnormal Lab Results - Last 24 Hours (Table) 10/12/23 10/12/23 Range/Units 15:43 15:56 BUN 23 H (7-17) mg/dL Glucose 100 H (74-99) mg/dL Calcium 10.6 H (8.4-10.2) mg/dL Urine Appearance Cloudy H (Clear) Urine Nitrite Positive H (Negative) Urine Bacteria Occasional H (None) /hpf Urine Mucus Rare H (None) /hpf Thrombosis Risk Factor Assmnt - Choose All That Apply Any of the Below Risk Factors Present?: Yes Other Risk Factors: Yes Each Risk Factor Represents 3 Points: Age 75 years or older Thrombosis Risk Factor Assessment Total Risk Factor Score: 3 Thrombosis Risk Factor Assessment Level: Moderate Risk Assessment and Plan Plan: Gastroenteritis with nausea and vomiting Dehydration with acute kidney injury with elevated BUN, patient was started on IV normal saline Underlying history of hypertension Underlying history of hyperlipidemia Underlying history of gastroesophageal reflux disease Previous history of lung cancer, left upper lobe Underlying history of COPD At this time patient is admitted to medical floor She was started on IV fluid and was kept nothing by mouth Computed tomography scan of the abdomen and pelvis revealed moderate to large am ount of stools throughout the colon Fleet enema would be given Patient will be started on clear liquid diet and advance gradually, will follow closely
[2023-10-14] MEDS: PANTOPRAZOLE 40 MG/10 ML VIAL IV SCH (08:51)
[2023-10-14 10:00] LABS: Basophils # (A) 0.1 k/uL (0-0.2); Basophils % (A) 1 %; Eosinophils # (A) 0.1 k/uL (0-0.7); Eosinophils % (A) 2 %; HCT 39.8 % (34.0-46.0); HGB 13.2 gm/dL (11.4-16.0); Lymphocytes # (A) 2.1 k/uL (1.0-4.8); Lymphocytes % (A) 29 %; MCH 29.8 pg (25.0-35.0); MCHC 33.2 g/dL (31.0-37.0); MCV 89.7 fL (80.0-100.0); Monocytes # (A) 0.3 k/uL (0-1.0); Monocytes % (A) 5 %; Neutrophils # (A) 4.4 k/uL (1.3-7.7); Neutrophils % (A) 62 %; Platelet Count 190 k/uL (150-450); RBC 4.44 m/uL (3.80-5.40); RDW 13.8 % (11.5-15.5); WBC 7.1 k/uL (3.8-10.6)
[2023-10-14 10:09] LABS: ALT 11 U/L (4-34); AST 26 U/L (14-36); African American GFR (CKD) 72 (>60 ml/min/1.73 sqM); Albumin 3.2 g/dL (3.5-5.0); Albumin/Globulin Ratio 1.3; Alkaline Phosphatase 58 U/L (38-126); Anion Gap 13 mmol/L; Blood Urea Nitrogen 15 mg/dL (7-17); Calcium 8.3 mg/dL (8.4-10.2); Carbon Dioxide 18 mmol/L (22-30); Chloride 103 mmol/L (98-107); Globulin 2.5 g/dL; Glucose 107 mg/dL (74-99); Non-African American GFR(CKD) 62 (>60 ml/min/1.73 sqM); Potassium 4.4 mmol/L (3.5-5.1); Sodium 134 mmol/L (137-145); Total Bilirubin 0.7 mg/dL (0.2-1.3); Total Protein 5.7 g/dL (6.3-8.2)
[2023-10-14] MEDS ORDERED: NA PHOS,M-B/NA PHOS,DI-BA 133 ML ENEMA RECTAL ONE (10:16)
--- NOTE | 2023-10-14 10:16 | P.PN ---
Subjective Progress Note Date: 10/14/23 Patricia Oh, is an 87-year-old female who presented to [facility] emergency room with a chief complaint of nausea or vomiting severe weakness. She was evaluated in the emergency room vital examination on presentation revealed a temperature of 97.5 pulse 92 respiration 18 blood pressure 111/73 pulse ox 96% on room air Laboratory data reveals white blood count 7.8 hemoglobin 15.3 platelet count 233 BUN 23 creatinine 0.97 Testing in the emergency room revealed computed tomography scan of the abdomen and pelvis revealed no evidence for acute abdominal process with moderate to large amount of stools throughout the colon Patient was admitted to medical floor for further evaluation and treatment On 10/14/2023 patient's alert and oriented 3. Patient did receive enema yesterday but denies having bowel movement will order repeat enema. Patient remains on clear liquid diet. At this time patient denies chest pain or shortness breath. Patient denies nausea or vomiting. Patient denies any urinary burning or frequency. Vital signs temp 98.2, heart rate 81, respiratory rate 16, blood pressure 110/58 with pulse ox 93% on room air. Will order repeat enema Objective - Vital Signs Vital signs: Vital Signs Temp 98.2 F 10/14/23 07:09 Pulse 81 10/14/23 07:09 Resp 16 10/14/23 07:09 BP 110/58 10/14/23 07:09 Pulse Ox 93 L 10/14/23 07:09 FiO2 Intake & Output 10/13/23 10/14/23 10/14/23 18:59 06:59 18:59 Output Total 125 400 450 Balance -125 -400 -450 Weight 47.174 kg Output: Urine 125 400 450 Other: Voiding Method External Catheter External Catheter External Catheter # Voids 1 - Exam In general patient is alert and oriented x 3 in no distress HEENT head normocephalic and atraumatic Neck is supple no JVD no goiter no lymphadenopathy no carotid bruit Chest examination is clear to auscultation no crackles no wheezing Cardiac exam reveals regular heart sounds S1 and S2 no gallops no murmurs Abdomen is soft nontender no organomegaly with normal bowel sounds Extremity exam reveals no edema no cyanosis or clubbing Neurological examination reveals no gross focal deficits - Labs CBC & Chem 7: 10/14/23 09:13 10/14/23 09:13 Labs: Abnormal Lab Results - Last 24 Hours (Table) 10/13/23 10/13/23 10/14/23 Range/Units 06:54 06:54 09:13 MCHC 31.2 L (32.0-37.0) g/dL Sodium 134 L (137-145) mmol/L Carbon Dioxide 18 L (22-30) mmol/L Est GFR (CKD-EPI) 55 L (>=60) Glucose 107 H (74-99) mg/dL Calcium 8.3 L (8.4-10.2) mg/dL Total Bilirubin 0.2 L (0.3-1.2) mg/dL Total Protein 5.6 L 5.7 L (6.2-8.2) g/dL Albumin 3.6 L 3.2 L (3.8-4.9) g/dL Assessment and Plan Plan: Gastroenteritis with nausea and vomiting Dehydration with acute kidney injury with elevated BUN, patient was started on IV normal saline Underlying history of hypertension Underlying history of hyperlipidemia Underlying history of gastroesophageal reflux disease Previous history of lung cancer, left upper lobe Underlying history of COPD At this time patient is admitted to medical floor She was started on IV fluid and was kept nothing by mouth Computed tomography scan of the abdomen and pelvis revealed moderate to large amount of stools throughout the colon Fleet enema would be given Patient will be started on clear liquid diet and advance gradually, will follow closely
[2023-10-14] MEDS ORDERED: LACTULOSE 20 GM/30 ML CUP PO ONE (11:53)
[2023-10-14] MEDS: SODIUM CHLORIDE 0.9% 1,000 ML IV SCH ×2 (12:06→22:55)
[2023-10-15] MEDS: PANTOPRAZOLE 40 MG/10 ML VIAL IV SCH (09:12)
[2023-10-15 09:14] LABS: Basophils # (A) 0.05 X 10*3/uL (0.00-0.10); Basophils % (A) 0.7 %; Eosinophils % (A) 3.9 %; HCT 36.7 % (37.2-46.3); HGB 11.9 g/dL (12.0-15.0); Lymphocytes # (A) 2.72 X 10*3/uL (0.90-5.00); Lymphocytes % (A) 35.8 %; MCH 28.2 pg (27.0-32.0); MCHC 32.4 g/dL (32.0-37.0); Mean Platelet Volume 10.9 FL (9.5-12.2); Monocytes # (A) 0.62 X 10*3/uL (0.20-1.00); Monocytes % (A) 8.2 %; NRBC Per 100 WBC 0 X 10*3/uL (0.00-0.01); Neutrophils # (A) 3.89 X 10*3/uL (1.80-7.70); Neutrophils % (A) 51.1 %; Platelet Count 212 X 10*3/uL (140-440); RBC 4.22 X 10*6/uL (4.10-5.20); RDW 14.1 % (11.5-14.5)
[2023-10-15 09:29] LABS: ALT 10 U/L (8-44); AST 14 U/L (13-35); Albumin 3.2 g/dL (3.8-4.9); Albumin/Globulin Ratio 1.68 Ratio (1.60-3.17); Alkaline Phosphatase 63 U/L (41-126); BUN/Creat Ratio 13.33 Ratio (12.00-20.00); Calcium 8.5 mg/dL (8.7-10.3); Carbon Dioxide 25.5 mmol/L (21.6-31.8); Chloride 104 mmol/L (96-109); Globulin 1.9 g/dL (1.6-3.3); Glucose 95 mg/dL (70-110); Potassium 4.4 mmol/L (3.5-5.5); Sodium 138 mmol/L (135-145); Total Bilirubin <0.2 mg/dL (0.3-1.2); Total Protein 5.1 g/dL (6.2-8.2)
[2023-10-15] MEDS ORDERED: LACTULOSE 20 GM/30 ML CUP PO ONE (12:00)
--- NOTE | 2023-10-15 12:02 | P.PN ---
Subjective Progress Note Date: 10/15/23 Patricia Oh, is an 87-year-old female who presented to [facility] emergency room with a chief complaint of nausea or vomiting severe weakness. She was evaluated in the emergency room vital examination on presentation revealed a temperature of 97.5 pulse 92 respiration 18 blood pressure 111/73 pulse ox 96% on room air Laboratory data reveals white blood count 7.8 hemoglobin 15.3 platelet count 233 BUN 23 creatinine 0.97 Testing in the emergency room revealed computed tomography scan of the abdomen and pelvis revealed no evidence for acute abdominal process with moderate to large amount of stools throughout the colon Patient was admitted to medical floor for further evaluation and treatment On 10/14/2023 patient's alert and oriented 3. Patient did receive enema yesterday but denies having bowel movement will order repeat enema. Patient remains on clear liquid diet. At this time patient denies chest pain or shortness breath. Patient denies nausea or vomiting. Patient denies any urinary burning or frequency. Vital signs temp 98.2, heart rate 81, respiratory rate 16, blood pressure 110/58 with pulse ox 93% on room air. Will order repeat enema On 10/15/2023 patient was seen and examined on the medical floor she is alert and oriented 3 in no apparent distress she is still complaining of abdominal discomfort and constipation there is no more episodes of nausea or vomiting. Is no fever or chills no headache or dizziness no chest pain no shortness of breath no cough and no urinary symptoms. At this time will add more lactulose and Colace. Will monitor till tomorrow. Objective - Vital Signs Vital signs: Vital Signs Temp 97.7 F 10/15/23 07:19 Pulse 63 10/15/23 07:19 Resp 16 10/15/23 07:19 BP 150/56 10/15/23 07:19 Pulse Ox 95 10/15/23 07:19 FiO2 Intake & Output 10/14/23 10/15/23 10/15/23 18:59 06:59 18:59 Intake Total 900 200 Output Total 450 1100 Balance 450 -900 Intake: Intake, IV Titration 900 Amount Sodium Chloride 0.9% 1, 900 000 ml @ 75 mls/hr IV . [id number] [facility] Rx#:[id number] Oral 200 Output: Urine 450 1100 Other: Voiding Method External Catheter External Catheter Bedside Commode External Catheter # Bowel Movements 1 - Exam In general patient is alert and oriented x 3 in no distress HEENT head normocephalic and atraumatic Neck is supple no JVD no goiter no lymphadenopathy no carotid bruit Chest examination is clear to auscultation no crackles no wheezing Cardiac exam reveals regular heart sounds S1 and S2 no gallops no murmurs Abdomen is soft nontender no organomegaly with normal bowel sounds Extremity exam reveals no edema no cyanosis or clubbing Neurological examination reveals no gross focal deficits - Labs CBC & Chem 7: 10/15/23 06:06 10/15/23 06:06 Labs: Abnormal Lab Results - Last 24 Hours (Table) 10/15/23 10/15/23 Range/Units 06:06 06:06 Hgb 11.9 L (12.0-15.0) g/dL Hct 36.7 L (37.2-46.3) % Calcium 8.5 L (8.7-10.3) mg/dL Total Bilirubin <0.2 L (0.3-1.2) mg/dL Total Protein 5.1 L (6.2-8.2) g/dL Albumin 3.2 L (3.8-4.9) g/dL Assessment and Plan Plan: Gastroenteritis with nausea and vomiting Dehydration with acute kidney injury with elevated BUN, patient was started on IV normal saline Underlying history of hypertension Underlying history of hyperlipidemia Underlying history of gastroesophageal reflux disease Previous history of lung cancer, left upper lobe Underlying history of COPD At this time patient is admitted to medical floor She was started on IV fluid and was kept nothing by mouth Computed tomography scan of the abdomen and pelvis revealed moderate to large amount of stools throughout the colon Fleet enema would be given Patient will be started on clear liquid diet and advance gradually, will follow closely
[2023-10-15] MEDS: DOCUSATE 100 MG CAP PO SCH ×2 (12:16→20:05)
[2023-10-15] MEDS: SODIUM CHLORIDE 0.9% 1,000 ML IV SCH (12:17)
[2023-10-16] MEDS: SODIUM CHLORIDE 0.9% 1,000 ML IV SCH ×2 (02:30→08:22)
[2023-10-16] MEDS: PANTOPRAZOLE 40 MG/10 ML VIAL IV SCH (08:22)
[2023-10-16] MEDS: DOCUSATE 100 MG CAP PO SCH (08:22)
[2023-10-16 08:33] LABS: ALT 11 U/L (4-34); AST 22 U/L (14-36); African American GFR (CKD) 77 (>60 ml/min/1.73 sqM); Albumin/Globulin Ratio 1.2; Alkaline Phosphatase 62 U/L (38-126); Anion Gap 9 mmol/L; Blood Urea Nitrogen 11 mg/dL (7-17); Calcium 8.4 mg/dL (8.4-10.2); Carbon Dioxide 22 mmol/L (22-30); Chloride 106 mmol/L (98-107); Globulin 2.5 g/dL; Glucose 88 mg/dL (74-99); Non-African American GFR(CKD) 67 (>60 ml/min/1.73 sqM); Potassium 4.5 mmol/L (3.5-5.1); Sodium 137 mmol/L (137-145); Total Bilirubin 0.4 mg/dL (0.2-1.3); Total Protein 5.5 g/dL (6.3-8.2)
[2023-10-16 08:39] LABS: Basophils % (A) 0 %; Eosinophils # (A) 0.3 k/uL (0-0.7); Eosinophils % (A) 3 %; Lymphocytes # (A) 3.1 k/uL (1.0-4.8); Lymphocytes % (A) 37 %; MCH 29.1 pg (25.0-35.0); MCHC 32.5 g/dL (31.0-37.0); MCV 89.6 fL (80.0-100.0); Mean Platelet Volume 8.6; Monocytes # (A) 0.5 k/uL (0-1.0); Monocytes % (A) 6 %; Neutrophils # (A) 4.4 k/uL (1.3-7.7); Neutrophils % (A) 52 %; Platelet Count 200 k/uL (150-450); RBC 4.46 m/uL (3.80-5.40); RDW 13.9 % (11.5-15.5); WBC 8.5 k/uL (3.8-10.6)
--- NOTE | 2023-10-16 09:50 | P.DS ---
Providers Date of admission: 10/12/23 19:08 Expected date of discharge: 10/16/23 Attending physician: Yanet Fournier Primary care physician: Jazlyn Ortega [facility] Course: Discharge diagnosis Gastroenteritis with nausea and vomiting Dehydration with acute kidney injury with elevated BUN, patient was started on IV normal saline Underlying history of hypertension Underlying history of hyperlipidemia Underlying history of gastroesophageal reflux disease Previous history of lung cancer, left upper lobe Underlying history of COPD Hospital course Patricia Oh, is an 87-year-old female who presented to [facility] emergency room with a chief complaint of nausea or vomiting severe weakness. She was evaluated in the emergency room vital examination on presentation revealed a temperature of 97.5 pulse 92 respiration 18 blood pressure 111/73 pulse ox 96% on room air Laboratory data reveals white blood count 7.8 hemoglobin 15.3 platelet count 233 BUN 23 creatinine 0.97 Testing in the emergency room revealed computed tomography scan of the abdomen and pelvis revealed no evidence for acute abdominal process with moderate to large amount of stools throughout the colon Patient was admitted to medical floor for further evaluation and treatment On 10/14/2023 patient's alert and oriented 3. Patient did receive enema yesterday but denies having bowel movement will order repeat enema. Patient remains on clear liquid diet. At this time patient denies chest pain or shortness breath. Patient denies nausea or vomiting. Patient denies any urinary burning or frequency. Vital signs temp 98.2, heart rate 81, respiratory rate 16, blood pressure 110/58 with pulse ox 93% on room air. Will order repeat enema On 10/15/2023 patient was seen and examined on the medical floor she is alert and oriented 3 in no apparent distress she is still complaining of abdominal discomfort and constipation there is no more episodes of nausea or vomiting. Is no fever or chills no headache or dizziness no chest pain no shortness of breath no cough and no urinary symptoms. At this time will add more lactulose and Colace. Will monitor till tomorrow. On 10/16/2023 patient's alert and oriented 3. Patient reports she did have bowel movement. Patient will be DC'd home on scheduled Colace and lactulose when necessary patient follow-up PCP for further management. Patient denies chest pain or shortness breath. Patient denies nausea vomiting or diarrhea. Patient denies any urinary burning or frequency Patient Condition at Discharge: Stable Plan - Discharge Summary New Discharge Prescriptions: New Lactulose 20 gm PO DAILY PRN 7 Days #210 ml PRN Reason: Constipation Docusate [Colace] 100 mg PO BID 30 Days #60 cap Continue Simvastatin [Zocor] 20 mg PO HS amLODIPine [Norvasc] 5 mg PO DAILY Omeprazole 20 mg PO DAILY Discharge Medication List Simvastatin [Zocor] 20 mg PO HS 11/03/20 [History] Omeprazole 20 mg PO DAILY 08/18/22 [History] amLODIPine [Norvasc] 5 mg PO DAILY 09/02/23 [History] Docusate [Colace] 100 mg PO BID 30 Days #60 cap 10/16/23 [Rx] Lactulose 20 gm PO DAILY PRN 7 Days #210 ml 10/16/23 [Rx] Follow up Appointment(s)/Referral(s): Jazlyn Ortega MD [Primary Care Provider] - 1-2 days Activity/Diet/Wound Care/Special Instructions: Activity as tolerated Diet regular Discharge Disposition: HOME SELF-CARE
[2023-10-16 12:08] VITALS: BP 136/75; PULSE 61; RESP 18; TEMP 98.9
--- NOTE | 2023-10-17 10:00 | CDI ---
Documentation Clarification Form Date: 10/17/2023 09:52:23 AM From: Nati Rodríguez Admit Date: 10/12/2023 07:08:00 PM Patient Name: Patricia Oh V Visit Number: [id number] Discharge Date: 10/16/2023 02:18:00 PM ATTENTION: The Clinical Documentation Specialists (CDI) and [facility] Coding Staff appreciate your assistance in clarifying documentation. Please respond to the clarification below the line at the bottom and electronically sign. The CDI & [facility] Coding staff will review the response and follow-up if needed. Please note: Queries are made part of the Legal Health Record. If you have any questions, please contact the author of this message via ITS. Dr. Yanet Fournier The Registered Dietitian assessment on October 13 indicates this patient is underweight, underfeeding, 0% nutritional intake. Based on this information and the findings below, is there an additional diagnosis that is clinically appropriate for this patient? History/Risk Factors: Clinical Indicators: Current BMI: 19.0 [Cite applicable ASPEN criteria listed below] RD Consult Assessment: Treatment: Dietary consult and magic cups Supplements: Magic cups Is there an additional diagnosis that is clinically appropriate for this patient? [ xxx ] Mild Protein-Calorie Malnutrition [ ] Moderate Protein-Calorie Malnutrition [ ] Severe Protein-Calorie Malnutrition [ ] No additional diagnosis/Not clinically significant [ ] Other condition, please specify [ ] Unable to Determine MTDD
== END 2023-10-16 14:18 | disposition home or self-care (01) | DRG 392 ==
LOC: EC 14:39 → 6NMEDSUR 19:08 → OBSVTOIN 19:08 → 6NMEDSUR 19:20 → UNDOADMOB 19:20 → 6NMEDSUR 19:29 → 5NMEDONC 19:29
PROVIDERS: ADMIT Internal Medicine; ATTEND Internal Medicine
DX: K52.9 Noninfective gastroenteritis and colitis, unspecified (principal); N17.9 Acute kidney failure, unspecified; E44.1 Mild protein-calorie malnutrition; Z68.1 Body mass index [BMI] 19.9 or less, adult; Z79.899 Other long term (current) drug therapy; Z82.49 Family history of ischemic heart disease and other diseases of the circulatory system; E78.5 Hyperlipidemia, unspecified; Z85.118 Personal history of other malignant neoplasm of bronchus and lung; K59.00 Constipation, unspecified; J44.9 Chronic obstructive pulmonary disease, unspecified; Z96.641 Presence of right artificial hip joint; I10 Essential (primary) hypertension; Z87.11 Personal history of peptic ulcer disease; Z87.891 Personal history of nicotine dependence; Z92.3 Personal history of irradiation; Z86.11 Personal history of tuberculosis; Z79.82 Long term (current) use of aspirin; E86.0 Dehydration; Z66 Do not resuscitate
CPT/HCPCS: 36415; 71046; 74176; 80053; 81001; 83605; 83690; 83735; 83880; 84100; 84443; 84484; 85025; 85610; 85730; 93005; 94760; 96361; 96374; 96375; 99285

== ENCOUNTER 2023-10-18 06:20 | Emergency (ER) | payer MEDICARE, OTHER ==
[2023-10-18 06:32] VITALS: TEMP 97.5
[2023-10-18] MEDS ORDERED: SODIUM CHLORIDE 0.9% 1,000 ML IV STA (06:39)
[2023-10-18] MEDS ORDERED: METOCLOPRAMIDE 5 MG/ML 2 ML VIAL IVP STA (06:39)
--- NOTE | 2023-10-18 06:42 | ED ---
General Adult HPI - General Chief complaint: Nausea/Vomiting/Diarrhea Stated complaint: Constipation Time Seen by Provider: 10/18/23 06:24 Source: patient, EMS, RN notes reviewed, old records reviewed Mode of arrival: EMS Limitations: no limitations - History of Present Illness Initial comments: 87-year-old female presents emergency department via EMS with chief complaint of nausea vomiting, constipation. Patient states that she was recently admitted and discharged on Tuesday. Patient states that she was discharged with medications for constipation states that she has not moved her bowels. Patient states she was given 2 enemas when she was in the hospital. Patient states she has lower abdominal discomfort. Patient did have CT on prior admission. Patient denies any fevers chills no chest pain or shortness of breath. - Related Data Home Medications Medication Instructions Recorded Confirmed Simvastatin [Zocor] 20 mg PO HS 11/03/20 10/12/23 Omeprazole 20 mg PO DAILY 08/18/22 10/12/23 amLODIPine [Norvasc] 5 mg PO DAILY 09/02/23 10/12/23 Previous Rx's Medication Instructions Recorded Docusate [Colace] 100 mg PO BID 30 Days #60 cap 10/16/23 Lactulose 20 gm PO DAILY PRN 7 Days #210 ml 10/16/23 Ondansetron Odt [Zofran Odt] 4 mg PO Q8HR PRN #10 tab 10/18/23 Allergies Allergy/AdvReac Type Severity Reaction Status Date / Time aspirin AdvReac Nausea & Verified 10/12/23 18:53 Vomiting Review of Systems ROS Statement: Those systems with pertinent positive or pertinent negative responses have been documented in the HPI. ROS Other: All systems not noted in ROS Statement are negative. 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22, was in a sanatorium for 9 months History of Any Multi-Drug Resistant Organisms: None Reported Past Surgical History: Cholecystectomy, Tonsillectomy Additional Past Surgical History / Comment(s): stomach ulcer repair about 25 years ago, was on life support and a feeding tube, has midline repair scar; also thyroid tumor, rt hip replacement - Past Anesthesia/Blood Transfusion Reactions: No Reported Reaction Past Psychological History: No Psychological Hx Reported Smoking Status: Former smoker Past Alcohol Use History: None Reported Past Drug Use History: None Reported - Past Family History Family Family Medical History: Coronary Artery Disease (CAD) General Exam Limitations: no limitations General appearance: alert, in no apparent distress Head exam: Present: atraumatic, normocephalic, normal inspection Eye exam: Present: normal appearance, PERRL, EOMI. Absent: scleral icterus, conjunctival injection, periorbital swelling ENT exam: Present: normal exam, normal oropharynx, mucous membranes moist Neck exam: Present: normal inspection, full ROM. Absent: tenderness, meningismus, lymphadenopathy Respiratory exam: Present: normal lung sounds bilaterally. Absent: respiratory distress, wheezes, rales, rhonchi, stridor Cardiovascular Exam: Present: regular rate, normal rhythm, normal heart sounds. Absent: systolic murmur, diastolic murmur, rubs, gallop, clicks GI/Abdominal exam: Present: soft, tenderness, normal bowel sounds. Absent: distended, guarding, rebound, rigid Back exam: Absent: CVA tenderness (R), CVA tenderness (L) Neurological exam: Present: alert, oriented X3 Course Vital Signs 10/18/23 10/18/23 10/18/23 06:22 06:48 09:00 Temperature 97.5 F L Pulse Rate 102 H 96 Respiratory 19 18 Rate Blood Pressure 196/101 176/85 162/74 O2 Sat by Pulse 98 98 Oximetry 10/18/23 10/18/23 11:23 11:47 Temperature Pulse Rate 94 93 Respiratory 18 18 Rate Blood Pressure 156/76 163/78 O2 Sat by Pulse 98 98 Oximetry - Reevaluation(s) Reevaluation #1: 10/18/23 09:03 Patient states she felt greatly improved after enema, did have large bowel movement Medical Decision Making - Medical Decision Making Was pt. sent in by a medical professional or institution (, PA, REWORKER, urgent care, hospital, or long-term...) When possible be specific @ -No Did you speak to anyone other than the patient for history (EMS, parent, family, police, friend...)? What history was obtained from this source @ -No Did you review nursing and triage notes (agree or disagree)? Why? @ -I reviewed and agree with nursing and triage notes Were old charts reviewed (outside hosp., previous admission, EMS record, old EKG, old radiological studies, urgent care reports/EKG's, long-term records)? Report findings @ -Reviewed recent admission, laboratory studies, CT Differential Diagnosis (chest pain, altered mental status, abdominal pain women, abdominal pain men, vaginal bleeding, weakness, fever, dyspnea, syncope, headache, dizziness, GI bleed, back pain, seizure, CVA, palpatations, mental health, musculoskeletal)? @ -nDifferential Abdominal Pain Women: Appendicitis, Cholecystitis, diverticulosis, ischemic bowel, pancreatitis, hepatitis, UTI, gastroenteritis, AAA, incarcerated hernia, bowel obstruction, constipation, inflammatory bowel, hepatitis, peptic ulcer disease, splenic infarction, perforated viscus, vulvitis, ovarian torsion, PID, kidney stone, placenta abruption, this is not meant to be an all-inclusive listable EKG interpreted by me (3pts min.). @ -None X-rays interpreted by me (1pt min.). @ -X-ray shows nonobstructive pattern, noted constipation CT interpreted by me (1pt min.). @ -None done U/S interpreted by me (1pt. min.). @ -None done What testing was considered but not performed or refused? (CT, X-rays, U/S, labs)? Why? @ -None What meds were considered but not given or refused? Why? @ -None Did you discuss the management of the patient with other professionals (professionals i.e. , PA, REWORKER, lab, RT, psych nurse, social work assistant, audit practice intern, teacher, penal officer, case finishing machine adjuster)? Give summary @ -No Was smoking cessation discussed for >3mins.? @ -No Was critical care preformed (if so, how long)? @ -No Were there social determinants of health that impacted care today? How? (Homelessness, low income, unemployed, alcoholism, drug addiction, transportation, low edu. Level, literacy, decrease access to med. care, longterm, rehab)? @ -No Was there de-escalation of care discussed even if they declined (Discuss DNR or withdrawal of care, Hospice)? DNR status @ -No What co-morbidities impacted this encounter? (DM, HTN, Smoking, COPD, CAD, Cancer, CVA, ARF, Chemo, Hep., AIDS, mental health diagnosis, sleep apnea, morbid obesity)? @ -None Was patient admitted / discharged? Hospital course, mention meds given and route, prescriptions, significant lab abnormalities, going to OR and other pertinent info. @ -Discharge patient had an enema which had a large bowel movement states that improved her abdominal pain. Patient's nausea has resolved after Zofran, Reglan. Patient's tolerate oral intake states that she feels greatly improved and agrees to plan to discharge with Zofran and close follow-up. Undiagnosed new problem with uncertain prognosis? @ -No Drug Therapy requiring intensive monitoring for toxicity (Heparin, Nitro, Insulin, Cardizem)? @ -No Were any procedures done? @ -No Diagnosis/symptom? @ -Constipation, nausea vomiting Acute, or Chronic, or Acute on Chronic? @ -Acute Uncomplicated (without systemic symptoms) or Complicated (systemic symptoms)? @ -Uncomplicated Side effects of treatment? @ -No Exacerbation, Progression, or Severe Exacerbation? @ -No Poses a threat to life or bodily function? How? (Chest pain, [place], [place], pneumonia, PE, COPD, DKA, ARF, appy, cholecystitis, CVA, Diverticulitis, Homicidal, Suicidal, threat to staff... and all critical care pts) @ -No - Lab Data Result diagrams: 10/18/23 06:41 10/18/23 08:30 Lab Results 10/18/23 10/18/23 10/18/23 Range/Units 06:41 06:41 08:30 WBC 11.8 H (3.8-10.6) k/uL RBC 5.06 (3.80-5.40) m/uL Hgb 14.9 (11.4-16.0) gm/dL Hct 44.2 (34.0-46.0) % MCV 87.4 (80.0-100.0) fL MCH 29.5 (25.0-35.0) pg MCHC 33.7 (31.0-37.0) g/dL RDW 14.1 (11.5-15.5) % Plt Count 306 (150-450) k/uL MPV 10.6 Neutrophils % (Manual) 50 % Lymphocytes % (Manual) 41 % Monocytes % (Manual) 5 % Eosinophils % (Manual) 3 % Basophils % (Manual) 1 % Neutrophils # (Manual) 5.90 (1.3-7.7) k/uL Lymphocytes # (Manual) 4.84 H (1.0-4.8) k/uL Monocytes # (Manual) 0.59 (0-1.0) k/uL Eosinophils # (Manual) 0.35 (0-0.7) k/uL Basophils # (Manual) 0.12 (0-0.2) k/uL Nucleated RBCs 0 (0-0) /100 WBC Manual Slide Review Performed Sodium 140 (137-145) mmol/L Potassium 3.9 (3.5-5.1) mmol/L Chloride 113 H (98-107) mmol/L Carbon Dioxide 20 L (22-30) mmol/L Anion Gap 7 mmol/L BUN 12 (7-17) mg/dL Creatinine 0.56 (0.52-1.04) mg/dL Est GFR (CKD-EPI)AfAm >90 (>60 ml/min/1.73 sqM) Est GFR (CKD-EPI)NonAf 85 (>60 ml/min/1.73 sqM) Glucose 80 (74-99) mg/dL Calcium 7.1 L (8.4-10.2) mg/dL Total Bilirubin 0.5 (0.2-1.3) mg/dL AST 22 (14-36) U/L ALT 11 (4-34) U/L Alkaline Phosphatase 45 (38-126) U/L Total Protein 4.8 L (6.3-8.2) g/dL Albumin 2.4 L (3.5-5.0) g/dL Urine Color Colorless Urine Appearance Cloudy H (Clear) Urine pH 7.0 (5.0-8.0) Ur Specific Bradley 1.019 (1.001-1.035) Urine Protein Negative (Negative) Urine Glucose (UA) Negative (Negative) Urine Ketones Trace H (Negative) Urine Blood Negative (Negative) Urine Nitrite Negative (Negative) Urine Bilirubin Negative (Negative) Urine Urobilinogen <2.0 (<2.0) mg/dL Ur Leukocyte Esterase Negative (Negative) Urine RBC <1 (0-5) /hpf Urine WBC 2 (0-5) /hpf Ur Squamous Epith Cells <1 (0-4) /hpf Urine Bacteria Moderate H (None) /hpf Urine Mucus Moderate H (None) /hpf Disposition Clinical Impression: Constipation, Nausea & vomiting Disposition: HOME SELF-CARE Condition: Stable Instructions (If sedation given, give patient instructions): Acute Nausea and Vomiting (ED) Additional Instructions: Please return to the Emergency Department if symptoms worsen or any other concerns. Prescriptions: Ondansetron Odt [Zofran Odt] 4 mg PO Q8HR PRN #10 tab PRN Reason: Nausea Is patient prescribed a controlled substance at d/c from ED?: No Referrals: Jazlyn Ortega MD [Primary Care Provider] - 1-2 days Time of Disposition: 11:18
--- NOTE | 2023-10-18 06:59 | XR ---
EXAMINATION TYPE: XR KUB DATE OF EXAM: 10/18/2023 6:46 AM CLINICAL INDICATION:Female, 87 years old with history of constipation; [facility] COMPARISON: None. TECHNIQUE: One radiographic view of the abdomen was obtained. FINDINGS: Moderate stool burden throughout the colon. The bowel gas pattern is nonspecific without di lated loops of small or large bowel. There is no evidence for organomegaly or pneumoperitoneum. The osseous structures are intact. Fecal material and gas are demonstrated throughout the colon and rect um. Scoliosis changes of the spine. Prior right upper abdomen and middle upper abdomen surgical clips. Ri ght hip arthroplasty appears intact. No evidence of acute fracture. IMPRESSION: Moderate amount of stool throughout the colon. Nonspecific bowel gas pattern without radiographic isabella dence for acute process.
[2023-10-18 07:57] LABS: HCT 44.2 % (34.0-46.0); HGB 14.9 gm/dL (11.4-16.0); MCH 29.5 pg (25.0-35.0); MCHC 33.7 g/dL (31.0-37.0); MCV 87.4 fL (80.0-100.0); Mean Platelet Volume 10.6; Platelet Count 306 k/uL (150-450); RBC 5.06 m/uL (3.80-5.40); RDW 14.1 % (11.5-15.5); WBC 11.8 k/uL (3.8-10.6)
[2023-10-18 08:31] LABS: Basophils # (M) 0.12 k/uL (0-0.2); Eosinophils # (M) 0.35 k/uL (0-0.7); Lymphocytes # (M) 4.84 k/uL (1.0-4.8); Monocytes # (M) 0.59 k/uL (0-1.0); Neutrophils % (M) 50 %; Nucleated Red Blood Cells 0 /100 WBC (0-0); Total Cells Counted 100
[2023-10-18 09:12] LABS: ALT 11 U/L (4-34); African American GFR (CKD) >90 (>60 ml/min/1.73 sqM); Albumin 2.4 g/dL (3.5-5.0); Anion Gap 7 mmol/L; Blood Urea Nitrogen 12 mg/dL (7-17); Calcium 7.1 mg/dL (8.4-10.2); Carbon Dioxide 20 mmol/L (22-30); Chloride 113 mmol/L (98-107); Glucose 80 mg/dL (74-99); Non-African American GFR(CKD) 85 (>60 ml/min/1.73 sqM); Sodium 140 mmol/L (137-145); Total Bilirubin 0.5 mg/dL (0.2-1.3); Total Protein 4.8 g/dL (6.3-8.2)
[2023-10-18 09:14] LABS: Potassium 3.9 mmol/L (3.5-5.1)
[2023-10-18 09:15] LABS: AST 22 U/L (14-36); Alkaline Phosphatase 45 U/L (38-126)
[2023-10-18] MEDS ORDERED: SODIUM CHLORIDE 0.9% 500 ML 500 ML IV ONE (09:30)
[2023-10-18 10:04] LABS: Appearance,Urine Cloudy (Clear); Bacteria,Urine Moderate /hpf; Bilirubin,Urine Negative (Negative); Blood,Urine Negative (Negative); Color,Urine Colorless; Glucose,Urine (UA) Negative (Negative); Ketones,Urine Trace (Negative); Leukocyte Esterase,Urine Negative (Negative); Mucus,Urine Moderate /hpf; Nitrite,Urine Negative (Negative); Protein,Urine Negative (Negative); RBC,Urine <1 /hpf (0-5); Specific Gravity,Urine 1.019 (1.001-1.035); Squamous Epithelial Cell,Urine <1 /hpf (0-4); Urobilinogen,Urine <2.0 mg/dL (<2.0); WBC,Urine 2 /hpf (0-5)
[2023-10-18] MEDS ORDERED: FAMOTIDINE 20 MG/2 ML VIAL IV STA (10:11)
[2023-10-18] MEDS ORDERED: ONDANSETRON 4 MG/2 ML VIAL IVP STA (10:11)
[2023-10-18] MEDS ORDERED: ONDANSETRON 4 MG ODT STARTER PACK 2 TAB BTL PO STA (11:19)
[2023-10-18 11:24] VITALS: RESP 18
[2023-10-18 11:53] VITALS: BP 163/78; PULSE 93
== END 2023-10-18 11:47 | disposition home or self-care (01) ==
LOC: EC 06:20
DX: K59.00 Constipation, unspecified (principal); R11.2 Nausea with vomiting, unspecified; I10 Essential (primary) hypertension; K21.9 Gastro-esophageal reflux disease without esophagitis; E78.5 Hyperlipidemia, unspecified; Z79.899 Other long term (current) drug therapy; Z87.891 Personal history of nicotine dependence; Z88.6 Allergy status to analgesic agent; Z90.49 Acquired absence of other specified parts of digestive tract
CPT/HCPCS: 36415; 80053; 85025; 81001; 74018; 99284; 96374; 96375 ×2; 96361; J2765; J2405; J3490; S0119

== ENCOUNTER 2023-10-20 01:00 | Observation (INO) | payer MEDICARE, OTHER ==
[2023-10-20] MEDS ORDERED: MORPHINE SULFATE 2 MG/ML SYRINGE IVP STA (01:15)
--- NOTE | 2023-10-20 02:39 | ED ---
Lower Extremity Injury HPI - General Chief Complaint: Extremity Injury, Lower Stated Complaint: Hip Pain Time Seen by Provider: 10/20/23 01:09 Source: patient, EMS Mode of arrival: EMS Limitations: no limitations - History of Present Illness Initial Comments: 7-year-old female presenting for evaluation post fall. Patient slipped and fell in the bathroom this evening. She admits to right hip pain. States that she is unable to stand up. Denies any head injury, loss of consciousness, use of blood thinners. No dizziness, nausea, vomiting, numbness, tingling. No chest pain, difficulty breathing, abdominal pain. - Related Data Home Medications Medication Instructions Recorded Confirmed Simvastatin [Zocor] 20 mg PO HS 11/03/20 10/20/23 Omeprazole 20 mg PO DAILY 08/18/22 10/20/23 amLODIPine [Norvasc] 5 mg PO DAILY 09/02/23 10/20/23 Previous Rx's Medication Instructions Recorded Docusate [Colace] 100 mg PO BID 30 Days #60 cap 10/16/23 Lactulose 20 gm PO DAILY PRN 7 Days #210 ml 10/16/23 Ondansetron Odt [Zofran Odt] 4 mg PO Q8HR PRN #10 tab 10/18/23 Allergies Allergy/AdvReac Type Severity Reaction Status Date / Time aspirin AdvReac Nausea & Verified 10/20/23 11:42 Vomiting Review of Systems ROS Statement: Those systems with pertinent positive or pertinent negative responses have been documented in the HPI. ROS Other: All systems not noted in ROS Statement are negative. 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22, was in a sanatorium for 9 months History of Any Multi-Drug Resistant Organisms: None Reported Past Surgical History: Cholecystectomy, Tonsillectomy Additional Past Surgical History / Comment(s): stomach ulcer repair about 25 years ago, was on life support and a feeding tube, has midline repair scar; also thyroid tumor, rt hip replacement - Past Anesthesia/Blood Transfusion Reactions: No Reported Reaction Past Psychological History: No Psychological Hx Reported Smoking Status: Former smoker Past Alcohol Use History: None Reported Past Drug Use History: None Reported - Past Family History Family Family Medical History: Coronary Artery Disease (CAD) General Exam Limitations: no limitations General appearance: alert, in no apparent distress Head exam: Present: atraumatic, normocephalic, normal inspection Eye exam: Present: normal appearance, EOMI Neck exam: Present: normal inspection, full ROM Respiratory exam: Present: normal lung sounds bilaterally. Absent: respiratory distress, wheezes, rales, rhonchi, stridor Cardiovascular Exam: Present: regular rate, normal rhythm, normal heart sounds. Absent: systolic murmur, diastolic murmur, rubs, gallop, clicks Right Hip exam: Present: normal inspection, tenderness. Absent: full ROM Neurovascular tendon exam: Present: no vascular compromise Neurological exam: Present: alert, oriented X3 Psychiatric exam: Present: normal affect, normal mood Skin exam: Present: warm, dry, intact, normal color. Absent: rash Course Vital Signs 10/20/23 10/20/23 01:03 06:12 Temperature 97.7 F Pulse Rate 75 60 Respiratory 16 16 Rate Blood Pressure 127/57 120/65 O2 Sat by Pulse 95 95 Oximetry Medical Decision Making - Medical Decision Making Was pt. sent in by a medical professional or institution (, PA, INGOT HEADER, urgent care, hospital, or care home...) When possible be specific @ -No Did you speak to anyone other than the patient for history (EMS, parent, family, police, friend...)? What history was obtained from this source @ -No Did you review nursing and triage notes (agree or disagree)? Why? @ -I reviewed and agree with nursing and triage notes Were old charts reviewed (outside hosp., previous admission, EMS record, old EKG, old radiological studies, urgent care reports/EKG's, care home records)? Report findings @ -No old charts were reviewed Differential Diagnosis (chest pain, altered mental status, abdominal pain women, abdominal pain men, vaginal bleeding, weakness, fever, dyspnea, syncope, headache, dizziness, GI bleed, back pain, seizure, CVA, palpatations, mental health, musculoskeletal)? @ -Differential Musculoskeletal Muscular strain, contusion, ligament sprain, fracture, arthritis, septic arthritis, bursitis, cellulitis, muscle spasm, nerve compression, DVT, arterial occlusion, herpes zoster, electrolyte abnormality, tumor.... This is not meant to be in all inclusive list EKG interpreted by me (3pts min.). @ -As above X-rays interpreted by me (1pt min.). @ Preliminary read of the x-ray shows pubic ramus fracture, awaiting formal report CT interpreted by me (1pt min.). @ --No acute hemorrhage or mass effect. Moderate ventriculomegaly. Correlate with normal pressure hydrocephalus versus ex vacuo dilatation. No acute fracture or subluxation. Abnormal left apical thick subpleural opacity/density suspicious for neoplastic process. Recommended chest CT U/S interpreted by me (1pt. min.). @ -None done What testing was considered but not performed or refused? (CT, X-rays, U/S, labs)? Why? @ -None What meds were considered but not given or refused? Why? @ -None Did you discuss the management of the patient with other professionals (professionals i.e. , PA, INGOT HEADER, lab, RT, psych nurse, social media content specialist, philosophy instructor, teacher, aeronautical engineering officer, protective services case worker)? Give summary @ -My attending spoke with orthopedics on-call who accepted admission Was smoking cessation discussed for >3mins.? @ -No Was critical care preformed (if so, how long)? @ -No Were there social determinants of health that impacted care today? How? (Homelessness, low income, unemployed, alcoholism, drug addiction, trans portation, low edu. Level, literacy, decrease access to med. care, [facility], rehab)? @ -No Was there de-escalation of care discussed even if they declined (Discuss DNR or withdrawal of care, Hospice)? DNR status @ -No What co-morbidities impacted this encounter? (DM, HTN, Smoking, COPD, CAD, Cancer, CVA, ARF, Chemo, Hep., AIDS, mental health diagnosis, sleep apnea, morbid obesity)? @ -None Was patient admitted / discharged? Hospital course, mention meds given and route, prescriptions, significant lab abnormalities, going to OR and other pertinent info. @ -87-year-old female presenting with chief complaint of right hip pain after a mechanical fall. No head injury, loss of consciousness, or use of blood thinners. History and physical exam were conducted. Head CT shows no acute intracranial process or cervical spine fracture. Preliminary reading of hip and pelvis x-ray shows pubic rami fractures. Awaiting formal report. Patient is signed out to my attending for further management and disposition. - Lab Data Result diagrams: 10/20/23 06:15 10/20/23 06:15 Disposition Clinical Impression: Pubic ramus fracture Disposition: ADMITTED IP TO THIS HOSP Condition: Fair
--- NOTE | 2023-10-20 04:55 | CT ---
EXAM: CT Head Without Intravenous Contrast CLINICAL HISTORY: ITS.REASON CT Reason: fall TECHNIQUE: Axial computed tomography images of the head/brain without intravenous contrast. CTDI is 45.2 mGy and DLP is 1004 mGy-cm. This CT exam was performed using one or more of the following dose reduction techniques: automated exposure control, adjustment of the mA and/or kV according to patient size, and/or use of iterative reconstruction technique. COMPARISON: No relevant prior studies available. FINDINGS: Brain: No hemorrhage, herniation, or mass effect. Chronic microvascular ischemic changes. Ventricles: Moderate ventriculomegaly.. Age related cerebral volume loss. Bones/joints: Unremarkable. Soft tissues: Unremarkable. Sinuses: Unremarkable. Mastoid air cells: Clear. IMPRESSION: No acute hemorrhage, or mass effect. Moderate ventricular megaly. Correlate with normal pressure hydrocephalus versus ex vacuo dilatation. EXAM: CT Cervical Spine Without Intravenous Contrast CLINICAL HISTORY: ITS.REASON CT Reason: fall TECHNIQUE: Axial computed tomography images of the cervical spine without intravenous contrast. CTDI is 14.6 mGy and DLP is 427.3 mGy-cm. This CT exam was performed using one or more of the following dose reduction techniques: automated exposure control, adjustment of the mA and/or kV according to patient size, and/or use of iterative reconstruction technique. COMPARISON: No relevant prior studies available. FINDINGS: Vertebrae: No acute fracture. Discs/spinal canal/neural foramina: degenerative changes. Soft tissues: No prevertebral swelling. Abnormal left apical thick subpleural opacity/density. COPD. IMPRESSION: No acute fracture or subluxation. Abnormal left apical thick subpleural opacity/density. Suspicious for neoplastic process. Recommend chest CT. <MYCVCSECTION> Communications: 10/20/23 05:47 Verify Receipt Verified receipt with clerk Mejia report given to Dr. Hollis on 10/20 05:46 (-05:00)
--- NOTE | 2023-10-20 05:13 | XR ---
EXAM: XR Right Hip With Pelvis When Performed, 2 or 3 Views CLINICAL HISTORY: Fall TECHNIQUE: Two or three views of the right hip with pelvis when performed. COMPARISON: 07/20/2019. FINDINGS: Redemonstrated left hip bipolar arthroplasty of the greater trochanter hardware and cerclage wires. Dystrophic calcifications. Acute fractures of the right superior and inferior pubic rami. Symphysis pubis is intact. No dislocation of the prosthesis. Bones are osteopenic. Degenerative changes lumbar spine. Vascular calcifications. IMPRESSION: Acute fractures of the right superior and inferior pubic ramus. Otherwise no change.
[2023-10-20] MEDS ORDERED: MORPHINE SULFATE 4 MG/ML SYRINGE IV STA (05:47)
[2023-10-20] MEDS ORDERED: NALOXONE 0.4 MG/ML 1 ML VIAL IV PRN (05:53)
[2023-10-20 06:26] LABS: Basophils % (A) 0 %; Eosinophils # (A) 0.1 k/uL (0-0.7); Eosinophils % (A) 2 %; HCT 37.3 % (34.0-46.0); HGB 12.3 gm/dL (11.4-16.0); Lymphocytes # (A) 2.3 k/uL (1.0-4.8); Lymphocytes % (A) 27 %; MCH 29.1 pg (25.0-35.0); MCHC 32.9 g/dL (31.0-37.0); MCV 88.4 fL (80.0-100.0); Mean Platelet Volume 7.9; Monocytes # (A) 0.5 k/uL (0-1.0); Monocytes % (A) 6 %; Neutrophils # (A) 5.5 k/uL (1.3-7.7); Neutrophils % (A) 64 %; Platelet Count 205 k/uL (150-450); RBC 4.22 m/uL (3.80-5.40); RDW 14.1 % (11.5-15.5); WBC 8.5 k/uL (3.8-10.6)
[2023-10-20 06:39] LABS: ALT 14 U/L (4-34); AST 23 U/L (14-36); African American GFR (CKD) 78 (>60 ml/min/1.73 sqM); Alkaline Phosphatase 55 U/L (38-126); Anion Gap 7 mmol/L; Blood Urea Nitrogen 13 mg/dL (7-17); Carbon Dioxide 27 mmol/L (22-30); Chloride 102 mmol/L (98-107); Glucose 88 mg/dL (74-99); Non-African American GFR(CKD) 68 (>60 ml/min/1.73 sqM); Sodium 136 mmol/L (137-145); Total Bilirubin 0.5 mg/dL (0.2-1.3); Total Protein 5.6 g/dL (6.3-8.2)
[2023-10-20] MEDS: SODIUM CHLORIDE 0.9% 1,000 ML IV SCH (06:56)
[2023-10-20] MEDS: MORPHINE SULFATE 4 MG/ML SYRINGE IV PRN ×3 (06:57→20:30)
--- NOTE | 2023-10-20 08:33 | XR ---
EXAMINATION TYPE: XR lumbar spine 2 or 3V DATE OF EXAM: 10/20/2023 CLINICAL HISTORY: pain TECHNIQUE: Three views of the lumbar spine are submitted. COMPARISON: None. FINDINGS: Severe scoliosis convex to the left. Grade 2 anterolisthesis L5 on S1 1.6 cm. Severe multilevel degen erative disc space narrowing and facet joint arthropathy. IMPRESSION: Severe degenerative change, scoliosis and grade 2 anterolisthesis is noted.
--- NOTE | 2023-10-20 09:04 | P.HPOR ---
History of Present Illness H&P Date: 10/20/23 Chief Complaint: Hip pain, status post fall. This is an 87-year-old female who presented to the emergency department early this morning after falling when she got up to the bathroom. She states that she lost balance with her walker and landed directly on her buttock. She is complaining of pain around the right hip and pelvis. 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 Her surgery was not performed around here. She denies head injury or loss of consciousness in this recent fall. She has no other complaints aside from the right hip and buttock pain. The patient is admitted to our service for further evaluation and care. 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22, was in a sanatorium for 9 months History of Any Multi-Drug Resistant Organisms: None Reported Past Surgical History: Cholecystectomy, Tonsillectomy Additional Past Surgical History / Comment(s): stomach ulcer repair about 25 years ago, was on life support and a feeding tube, has midline repair scar; also thyroid tumor, rt hip replacement - Past Anesthesia/Blood Transfusion Reactions: No Reported Reaction Past Psychological History: No Psychological Hx Reported Smoking Status: Former smoker Past Alcohol Use History: None Reported Past Drug Use History: None Reported - Past Family History Family Family Medical History: Coronary Artery Disease (CAD) Medications and Allergies Home Medications Medication Instructions Recorded Confirmed Type Simvastatin [Zocor] 20 mg PO HS 11/03/20 10/12/23 History Omeprazole 20 mg PO DAILY 08/18/22 10/12/23 History amLODIPine [Norvasc] 5 mg PO DAILY 09/02/23 10/12/23 History Docusate [Colace] 100 mg PO BID 30 Days #60 cap 10/16/23 Rx Lactulose 20 gm PO DAILY PRN 7 Days #210 ml 10/16/23 Rx Ondansetron Odt [Zofran Odt] 4 mg PO Q8HR PRN #10 tab 10/18/23 Rx Allergies Allergy/AdvReac Type Severity Reaction Status Date / Time aspirin AdvReac Nausea & Verified 10/12/23 18:53 Vomiting Physical Examination This is a pleasant 87-year-old female in no acute distress. She is alert and oriented 3. Exam of the head neck reveal no obvious deformity. She has full cervical spine motion without difficulty or pain. She is nontender with palpation about the cervical spine and paraspinal musculature. Exam of the upper extremities is unremarkable. She has full range of motion of the shoulders, elbows, wrists and fingers bilaterally. Neurovascular status to the upper extremities is intact. Exam of the lower extremities reveals no obvious deformity or shortening. There is pain with motion to the right leg. She has full foot and ankle motion on the right without difficulty or pain. She has fairly good motion to the left hip and knee. Neurovascular status to the lower extremities is intact. Results X-rays of the pelvis and right hip reveal total hip arthroplasty in place with a claw plate along the greater trochanter with cables around the proximal femur. There is a large bony calcification superior to the hip. There are superior and inferior pubic rami fractures noted on the right with possible extension into the acetabulum. There may possibly be superior and inferior rami fractures on the left as well. Fractures are relatively nondisplaced. - Labs Labs: Abnormal Lab Results - Last 24 Hours (Table) 10/20/23 Range/Units 06:15 Sodium 136 L (137-145) mmol/L Total Protein 5.6 L (6.3-8.2) g/dL Albumin 3.0 L (3.5-5.0) g/dL H & H 10/20/23 Range/Units 06:15 Hgb 12.3 (11.4-16.0) gm/dL Hct 37.3 (34.0-46.0) % Result Diagrams: 10/20/23 06:15 10/20/23 06:15 Assessment and Plan (1) Pubic ramus fracture Current Visit: Yes Status: Acute Code(s): S32.599A - OTH FRACTURE OF UNSP PUBIS, INIT ENCNTR FOR CLOSED FRACTURE SNOMED Code(s): 01354980 (2) Status post fall Current Visit: Yes Status: Acute Code(s): Z91.81 - HISTORY OF FALLING SNOMED Code(s): 738351936 Plan: The clinical and x-ray findings are discussed with the patient. It is recommended that she have a computed tomography scan for further evaluation of the fractures in her pelvis and especially the right superior rami fracture with extension into the acetabulum. She is to be nonweightbearing at this time. I will consult physical therapy and occupational therapy for evaluation. She will likely need inpatient rehab placement. The patient lives with her son but he is having major surgery coming up next month. He'll be unable to care for her. We will continue to follow and await CT results.
--- NOTE | 2023-10-20 10:33 | P.CONS ---
History of Present Illness - Reason for Consult Consult date: 10/20/23 - History of Present Illness Patricia Oh, is an 87-year-old female who presented to [facility] emergency room after sustaining a fall and complaining of hip pain. Patient states that she slipped and fell in the bathroom, she was unable to stand up, she denies any loss of consciousness, she denies any head injury, She was evaluated in the emergency room vital examination on presentation revealed a temperature of 97.9 pulse 75 respiration 16 blood pressure 127/57 pulse ox 95% on room air Laboratory data revealed a white blood count of 8.5 hemoglobin 12.3 platelet count 205 sodium 136 potassium 4.0 chloride 102 CO2 27 BUN 13 creatinine 0.8 Testing in the emergency room revealed pelvic x-ray revealed acute fracture of the right superior and inferior pubic ramus Patient was admitted to medical floor for further evaluation and treatment, orthopedic consultation was requested. Past medical history is significant for patient was recently admitted to [facility] with abdominal pain nausea vomiting and constipation, she also has a known history of hypertension and hyperlipidemia otherwise no significant past medical history. 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22, was in a sanatorium for 9 months History of Any Multi-Drug Resistant Organisms: None Reported Past Surgical History: Cholecystectomy, Tonsillectomy Additional Past Surgical History / Comment(s): stomach ulcer repair about 25 years ago, was on life support and a feeding tube, has midline repair scar; also thyroid tumor, rt hip replacement - Past Anesthesia/Blood Transfusion Reactions: No Reported Reaction Past Psychological History: No Psychological Hx Reported Smoking Status: Former smoker Past Alcohol Use History: None Reported Past Drug Use History: None Reported - Past Family History Family Family Medical History: Coronary Artery Disease (CAD) Medications and Allergies Home Medications Medication Instructions Recorded Confirmed Type Simvastatin [Zocor] 20 mg PO HS 11/03/20 10/12/23 History Omeprazole 20 mg PO DAILY 08/18/22 10/12/23 History amLODIPine [Norvasc] 5 mg PO DAILY 09/02/23 10/12/23 History Docusate [Colace] 100 mg PO BID 30 Days #60 cap 10/16/23 Rx Lactulose 20 gm PO DAILY PRN 7 Days #210 ml 10/16/23 Rx Ondansetron Odt [Zofran Odt] 4 mg PO Q8HR PRN #10 tab 10/18/23 Rx Allergies Allergy/AdvReac Type Severity Reaction Status Date / Time aspirin AdvReac Nausea & Verified 10/12/23 18:53 Vomiting Physical Exam Vitals: Vital Signs Temp Pulse Pulse Resp BP BP Pulse Ox 10/20/23 08:00 97.6 F 80 18 103/58 93 L 10/20/23 06:12 60 16 120/65 95 10/20/23 01:03 97.7 F 75 16 127/57 95 Intake and Output 10/19/23 10/20/23 10/20/23 22:59 06:59 14:59 Other: Weight 45.359 kg In general patient is alert and oriented x 3 in no distress HEENT head normocephalic and atraumatic Neck is supple no JVD no goiter no lymphadenopathy no carotid bruit Chest examination is clear to auscultation no crackles no wheezing Cardiac exam reveals regular heart sounds S1 and S2 no gallops no murmurs Abdomen is soft nontender no organomegaly with normal bowel sounds Extremity exam reveals no edema no cyanosis or clubbing Neurological examination reveals no gross focal deficits Results CBC & Chem 7: 10/20/23 06:15 10/20/23 06:15 Labs: Abnormal Lab Results - Last 24 Hours (Table) 10/20/23 Range/Units 06:15 Sodium 136 L (137-145) mmol/L Total Protein 5.6 L (6.3-8.2) g/dL Albumin 3.0 L (3.5-5.0) g/dL Assessment and Plan Plan: Fall with pubic ramus fracture, orthopedic consultation requested Underlying history of hypertension Underlying history of hyperlipidemia Recent admission with gastroenteritis nausea vomiting and constipation At this time patient is admitted to medical floor Home medications reviewed and reordered For DVT prophylaxis subcu Lovenox Orthopedic consultation was requested Will follow closely during this admission
--- NOTE | 2023-10-20 10:44 | CT ---
EXAMINATION TYPE: CT pelvis wo con DATE OF EXAM: 10/20/2023 COMPARISON: None HISTORY: fx, pain CT DLP: 756.2 mGycm Automated exposure control for dose reduction was used. Unenhanced CT of the pelvis was performed wit h bone and soft tissue window settings in the axial, coronal and sagittal planes. FINDINGS: Mildly displaced fracture right ischium as well as right inferior pubic ramus. No additional fracture s are seen. Total right hip arthroplasty is in place with femoral and acetabular components appearing well seated. No pelvic masses appreciated. Visualized bowel loops of normal caliber. IMPRESSION: FRACTURES OF THE RIGHT ISCHIUM AND RIGHT INFERIOR PUBIC RAMUS.
[2023-10-20] MEDS ORDERED: ONDANSETRON ODT 4 MG TAB PO PRN (12:29)
[2023-10-20] MEDS ORDERED: LACTULOSE 20 GM/30 ML CUP PO PRN (12:29)
[2023-10-20] MEDS: ENOXAPARIN 40 MG/0.4 ML SYRINGE SQ SCH (12:37)
[2023-10-20] MEDS: amLODIPine 5 MG TAB PO SCH (12:45)
[2023-10-20] MEDS: DOCUSATE 100 MG CAP PO SCH ×2 (12:45→20:30)
[2023-10-20] MEDS: PANTOPRAZOLE 40 MG TABLET PO SCH (12:45)
[2023-10-20] MEDS ORDERED: CALCIUM CARBONATE 500 MG CHEWABLE PO PRN (15:58)
[2023-10-20] MEDS: LACTULOSE 20 GM/30 ML CUP PO SCH (20:30)
[2023-10-20] MEDS: ATORVASTATIN 10 MG TAB PO SCH (20:30)
[2023-10-21] MEDS: SODIUM CHLORIDE 0.9% 1,000 ML IV SCH ×3 (06:38→20:47)
[2023-10-21] MEDS: DOCUSATE 100 MG CAP PO SCH ×2 (08:50→20:47)
[2023-10-21] MEDS: PANTOPRAZOLE 40 MG TABLET PO SCH (08:50)
[2023-10-21] MEDS: MORPHINE SULFATE 4 MG/ML SYRINGE IV PRN (08:50)
[2023-10-21] MEDS: LACTULOSE 20 GM/30 ML CUP PO SCH ×2 (08:50→20:47)
[2023-10-21] MEDS: amLODIPine 5 MG TAB PO SCH ×2 (08:50→08:56)
[2023-10-21] MEDS: ENOXAPARIN 40 MG/0.4 ML SYRINGE SQ SCH (08:50)
[2023-10-21] MEDS ORDERED: HYDROcodone/APAP 7.5-325MG 1 EACH TAB PO PRN (08:59)
[2023-10-21 09:42] LABS: ALT 12 U/L (4-34); AST 21 U/L (14-36); African American GFR (CKD) 68 (>60 ml/min/1.73 sqM); Albumin/Globulin Ratio 1.2; Alkaline Phosphatase 66 U/L (38-126); Anion Gap 9 mmol/L; Blood Urea Nitrogen 13 mg/dL (7-17); Calcium 8.7 mg/dL (8.4-10.2); Carbon Dioxide 24 mmol/L (22-30); Chloride 103 mmol/L (98-107); Globulin 2.5 g/dL; Glucose 80 mg/dL (74-99); Non-African American GFR(CKD) 59 (>60 ml/min/1.73 sqM); Potassium 4.5 mmol/L (3.5-5.1); Sodium 136 mmol/L (137-145); Total Bilirubin 0.6 mg/dL (0.2-1.3); Total Protein 5.5 g/dL (6.3-8.2)
--- NOTE | 2023-10-21 11:01 | P.PN ---
Subjective Progress Note Date: 10/21/23 Patricia Oh, is an 87-year-old female who presented to [facility] emergency room after sustaining a fall and complaining of hip pain. Patient states that she slipped and fell in the bathroom, she was unable to stand up, she denies any loss of consciousness, she denies any head injury, She was evaluated in the emergency room vital examination on presentation revealed a temperature of 97.9 pulse 75 respiration 16 blood pressure 127/57 pulse ox 95% on room air Laboratory data revealed a white blood count of 8.5 hemoglobin 12.3 platelet count 205 sodium 136 potassium 4.0 chloride 102 CO2 27 BUN 13 creatinine 0.8 Testing in the emergency room revealed pelvic x-ray revealed acute fracture of the right superior and inferior pubic ramus Patient was admitted to medical floor for further evaluation and treatment, orthopedic consultation was requested. Past medical history is significant for patient was recently admitted to [facility] with abdominal pain nausea vomiting and constipation, she also has a known history of hypertension and hyperlipidemia otherwise no significant past medical history. On 10/21/2023 patient is alert and oriented 3 currently resting in bed. Patient still having some discomfortbut does report improvement with pain medication. Per nursing staff patient is having decreased SpO2 when oxygen is removed. Will order chest x-ray. Patient denies chest pain or shortness breath. Patient denies nausea vomiting or diarrhea. Patient denies any urinary burning or frequency. Current vital signs temp 98.6, heart rate 73, respiratory rate 19, blood pressure 104/66 with pulse ox of 95% on 2 L Objective - Vital Signs Vital signs: Vital Signs Temp 98.6 F 10/21/23 07:16 Pulse 73 10/21/23 07:16 Resp 19 10/21/23 07:16 BP 104/66 10/21/23 07:16 Pulse Ox 95 10/21/23 08:16 FiO2 Intake & Output 10/20/23 10/21/23 10/21/23 18:59 06:59 18:59 Output Total 100 Balance -100 Weight 45.359 kg Output: Urine 100 Other: Voiding Method External Catheter External Catheter Incontinent # Voids 3 - Exam In general patient is alert and oriented x 3 in no distress HEENT head normocephalic and atraumatic Neck is supple no JVD no goiter no lymphadenopathy no carotid bruit Chest examination is clear to auscultation no crackles no wheezing Cardiac exam reveals regular heart sounds S1 and S2 no gallops no murmurs Abdomen is soft nontender no organomegaly with normal bowel sounds Extremity exam reveals no edema no cyanosis or clubbing Neurological examination reveals no gross focal deficits - Labs CBC & Chem 7: 10/20/23 06:15 10/21/23 06:00 Labs: Abnormal Lab Results - Last 24 Hours (Table) 10/21/23 Range/Units 06:00 Sodium 136 L (137-145) mmol/L Total Protein 5.5 L (6.3-8.2) g/dL Albumin 3.0 L (3.5-5.0) g/dL Assessment and Plan Assessment: Fall with pubic ramus fracture, orthopedic consultation requested Underlying history of hypertension Underlying history of hyperlipidemia Recent admission with gastroenteritis nausea vomiting and constipation Decrease oxygen. Will order chest x-ray At this time patient is admitted to medical floor Home medications reviewed and reordered For DVT prophylaxis subcu Lovenox Orthopedic consultation was requested Will follow closely during this admission Per orthopedic surgery no plans for surgical intervention at this time. Discharge planning in progress
[2023-10-21 11:32] LABS: Basophils % (A) 0 %; Eosinophils # (A) 0.2 k/uL (0-0.7); Eosinophils % (A) 2 %; HCT 37.9 % (34.0-46.0); HGB 12.3 gm/dL (11.4-16.0); Lymphocytes % (A) 21 %; MCH 29.3 pg (25.0-35.0); MCHC 32.6 g/dL (31.0-37.0); MCV 89.9 fL (80.0-100.0); Mean Platelet Volume 8.1; Monocytes # (A) 0.5 k/uL (0-1.0); Monocytes % (A) 5 %; Neutrophils % (A) 71 %; Platelet Count 213 k/uL (150-450); RBC 4.21 m/uL (3.80-5.40); RDW 14.2 % (11.5-15.5); WBC 9.8 k/uL (3.8-10.6)
[2023-10-21 11:54] VITALS: BMI 18.3
--- NOTE | 2023-10-21 12:08 | XR ---
EXAMINATION TYPE: XR chest 1V portable DATE OF EXAM: 10/21/2023 HISTORY: Shortness of breath. COMPARISON: 10/12/2023 TECHNIQUE: Single view of the chest is submitted. FINDINGS: Demonstrated are scattered senescent parenchymal change. Increased density right medial lung base may reflect developing infiltrate. Correlate clinically. The heart is stable. Hilar and mediastinal structures are within normal limits. Degenerative changes are seen of the dorsal spine. IMPRESSION: 1. Increased density right medial lung base may reflect developing infiltrate. Correlate clinically.
--- NOTE | 2023-10-21 12:47 | P.PN ---
Subjective Progress Note Date: 10/21/23 Principal diagnosis: Pubic Ramii fractures Patient is an 87-year-old female seen at bedside this am. She continues to have pain around the pelvis buttock area as expected due too her pubic ramii fractures. She is having some difficulty with nausea and intake. She has no other new complaints. She denies numbness, fever, chills, chest pain, headache. Objective - Vital Signs Vital signs: Vital Signs Temp 98.6 F 10/21/23 07:16 Pulse 73 10/21/23 07:16 Resp 19 10/21/23 07:16 BP 104/66 10/21/23 07:16 Pulse Ox 95 10/21/23 08:16 FiO2 Intake & Output 10/20/23 10/21/23 10/21/23 18:59 06:59 18:59 Output Total 100 Balance -100 Weight 45.359 kg 45.359 kg Output: Urine 100 Other: Voiding Method External Catheter External Catheter Incontinent # Voids 3 - Exam . Exam of the upper extremities is unremarkable. She has full range of motion of the shoulders, elbows, wrists and fingers bilaterally. Neurovascular status to the upper extremities is intact. Exam of the lower extremities reveals no obvious deformity or shortening. There is pain with motion to the right leg. She has full foot and ankle motion on the right without difficulty or pain. She has fairly good motion to the left hip and knee. Neurovascular status to the lower extremities is intact. - Constitutional General appearance: Present: no acute distress - Labs CBC & Chem 7: 10/21/23 11:10 10/21/23 06:00 Labs: Abnormal Lab Results - Last 24 Hours (Table) 10/21/23 Range/Units 06:00 Sodium 136 L (137-145) mmol/L Total Protein 5.5 L (6.3-8.2) g/dL Albumin 3.0 L (3.5-5.0) g/dL Assessment and Plan (1) Pubic ramus fracture Narrative/Plan: CT of the hip/pelvis showed no extension of the fractures into the acetabulum and the arthroplasty components intact. She will continue with routine orthopedic protocol including pain management, PT/OT, DVT prophylaxis and medical management. She would benefit from rehab placement and request this. She may be TDWB to tolerance with walker at all times. Current Visit: Yes Status: Acute Priority: Medium Code(s): S32.599A - OTH FRACTURE OF UNSP PUBIS, INIT ENCNTR FOR CLOSED FRACTURE SNOMED Code(s): 10073332 Time with Patient: Less than 30
[2023-10-21] MEDS: ONDANSETRON 4 MG/2 ML VIAL IVP PRN ×2 (13:07→18:14)
[2023-10-21] MEDS: traMADol 50 MG TAB PO PRN (15:41)
--- NOTE | 2023-10-21 15:46 | P.CONS ---
History of Present Illness - Reason for Consult Consult date: 10/21/23 rehab recommendations - Chief Complaint debility - History of Present Illness Patricia Oh is a 87 y.o. female , right handed, who lives in a first floor apartment with [address], with her son and daughter in law. Prior to admission, she was ambulating with a walker. She needed some assistance for basic/advanced ADLs. Current driving: no. Transportation by: son, family. Retired: yes. Support system: family, son She was admitted to [facility] 10/20. She presented to the ED c/o post fall. Patient reported that she slipped and fell in the bathroom on the evening of arrival to the ED. She complained of right hip pain and was unable to stand up. X-ray showed superior and inferior pubic rami fractures noted on the right with possible extension into the acetabulum. orthopedics was consulted. Orthopedic recommended a CT scan for further evaluations of the fractures which showed fractures of the right ischium and right inferior pubic ramus with no extension of the fractures into the acetabulum and the arthroplasty components intact. She was made TDWB RLE with walker as tolerated with no surgical intervention required. CT of the head showed no acute hemorrhage or mass effect. X-ray of the lumbar spine showed nothing acute. PM&R consulted for rehab recommendations. Therapy evaluations pending 10/21/23: patient found in bed with HOB elevated, son at bedside. She is on 2 liters supplemental oxygen which she does not use at home. Patient reports that pain is managed. She c/o chronic "stomach issues" for the last several years. She vomited during evaluation. Nursing notified. Patient has had rehabilitation at a [facility] in the past that she states went well. Patient and son deny other concerns at this time. 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22, was in a sanatorium for 9 months History of Any Multi-Drug Resistant Organisms: None Reported Past Surgical History: Cholecystectomy, Tonsillectomy Additional Past Surgical History / Comment(s): stomach ulcer repair about 25 years ago, was on life support and a feeding tube, has midline repair scar; also thyroid tumor, rt hip replacement - Past Anesthesia/Blood Transfusion Reactions: No Reported Reaction Past Psychological History: No Psychological Hx Reported Smoking Status: Former smoker Past Alcohol Use History: None Reported Past Drug Use History: None Reported - Past Family History Family Family Medical History: Coronary Artery Disease (CAD) Medications and Allergies Home Medications Medication Instructions Recorded Confirmed Type Simvastatin [Zocor] 20 mg PO HS 11/03/20 10/20/23 History Omeprazole 20 mg PO DAILY 08/18/22 10/20/23 History amLODIPine [Norvasc] 5 mg PO DAILY 09/02/23 10/20/23 History Docusate [Colace] 100 mg PO BID 30 Days #60 cap 10/16/23 10/20/23 Rx Lactulose 20 gm PO DAILY PRN 7 Days #210 ml 10/16/23 10/20/23 Rx Ondansetron Odt [Zofran Odt] 4 mg PO Q8HR PRN #10 tab 10/18/23 10/20/23 Rx Allergies Allergy/AdvReac Type Severity Reaction Status Date / Time aspirin AdvReac Nausea & Verified 10/20/23 11:42 Vomiting Physical Exam Osteopathic Statement: *. No significant issues noted on an osteopathic structural exam other than those noted in the History and Physical/Consult. Vitals: Vital Signs Temp Pulse Resp BP Pulse Ox 10/21/23 08:16 95 10/21/23 07:16 98.6 F 73 19 104/66 94 L 10/21/23 02:00 98.5 F 80 18 115/71 93 L 10/20/23 20:00 99 F 77 112/58 93 L 10/20/23 15:45 75 111/48 10/20/23 13:01 97.5 F L 108 H 19 99/61 97 Intake and Output 10/20/23 10/21/23 10/21/23 22:59 06:59 14:59 Output Total 100 Balance -100 Output: Urine 100 Other: Voiding Method External Catheter Incontinent # Voids 3 EXAM; General: WDWN, elderly female, sitting up in bed, son at bedside Head: Normocephalic, atraumatic. Eyes: Symmetric Ears: Symmetric. Hearing within normal limits. Mouth: Clear. Neck: Supple. Cardiac: Regular rate and rhythm. Calves supple, non tender, no edema Lungs: Breathing comfortably on 2 liters nasal cannula. Chest symmetric. Abdomen: Multiple episodes of emesis during encounter Extremities: Arthritic changes consistent with age. Neurological: Alert and oriented x3. Speech is clear and fluent without paraphasic errors Cranial nerves: CN II-XII: intact. Sensation: Intact and symmetrical limbs. Musculoskeletal: ROM WFL EXCEPT: MMT UE Sh Abd EE EF FABD WE HG Right 4 4 5 5 5 5 Left 4 4 5 5 5 5 MMT LE HF KE DF EHL Right 4 4 4 4 Left 4 4 4 4 Reflexes Biceps Triceps Brachioradialis Patella Achilles Babinski Hoffmans Right Left Skin: Skin intact where visible to head, neck, and bilateral upper and lower extremities EXCEPT: PIV Psych: Calm, cooperative Results CBC & Chem 7: 10/22/23 06:52 10/22/23 06:52 Labs: Abnormal Lab Results - Last 24 Hours (Table) 10/21/23 Range/Units 06:00 Sodium 136 L (137-145) mmol/L Total Protein 5.5 L (6.3-8.2) g/dL Albumin 3.0 L (3.5-5.0) g/dL Assessment and Plan Assessment: #Gait impairment/impaired ADLs secondary to right ischium and inferior pubic to us fracture s/p fall -Orthopedics following -TDWB of right lower extremity as tolerated with walker #s/p fall -fall precautions #Chronic nausea/vomiting #History of lung cancer with radiation #Bowel/ Bladder: Nursing to monitor and report concerns if any. #Diet -Healthy heart diet with Magic cup twice daily #Skin/wound: Skin/Wound care to follow as needed #Pain Management -Tylenol 650 mg every 6 hours as needed, Germfask 7.5/325 mg every 6 hours as needed, morphine 4 mg every 4 hours as needed #DVT Prophylaxis: -Lovenox #Comorbidities: GERD, hyperlipidemia, hypertension #Your medical dx and mgt Goals: Modified Independent mobility and ADLS both basic and advanced; increased functional mobility/strength; increased balance, safety, endurance. Improvement in medical issues through your care. Barriers: Pain, endurance, TDWB RLE Discharge recommendation: [facility] at discharge. Patient unlikely able to tolerate 3 hours of therapy daily, but would benefit from structured rehabilitation prior to discharge home. Patient seen and examined by Dr. Merritt Note prepped by LIAM McintoshC Author: Rebecca Mcmanus NP
[2023-10-21] MEDS: ATORVASTATIN 10 MG TAB PO SCH (20:47)
[2023-10-22] MEDS: traMADol 50 MG TAB PO PRN ×3 (06:36→22:13)
--- NOTE | 2023-10-22 08:00 | XR ---
EXAMINATION TYPE: XR abdomen 2V DATE OF EXAM: 10/21/2023 HISTORY: Pain. Technique: Supine and upright views of the abdomen are submitted. Comparison: 10/18/2023 Findings: There is no convincing evidence of pneumoperitoneum. There is moderate fecal stasis noted. The Bowel gas pattern is nonspecific and nonobstructive. No sizable air-fluid levels are seen. No mass effects are noted. No renal calcifications are identified. Right hip prosthesis is in place. IMPRESSION: 1. Nonspecific nonobstructive bowel gas pattern . Moderate fecal stasis.
[2023-10-22] MEDS: amLODIPine 5 MG TAB PO SCH (08:52)
[2023-10-22] MEDS: LACTULOSE 20 GM/30 ML CUP PO SCH ×2 (09:02→20:07)
[2023-10-22] MEDS: DOCUSATE 100 MG CAP PO SCH ×2 (09:02→20:07)
[2023-10-22] MEDS: ENOXAPARIN 40 MG/0.4 ML SYRINGE SQ SCH (09:02)
[2023-10-22] MEDS: PANTOPRAZOLE 40 MG TABLET PO SCH (09:02)
[2023-10-22 09:36] LABS: Basophils # (A) 0.06 X 10*3/uL (0.00-0.10); Basophils % (A) 0.4 %; Eosinophils # (A) 0.14 X 10*3/uL (0.04-0.35); Eosinophils % (A) 0.9 %; HCT 35.3 % (37.2-46.3); HGB 10.9 g/dL (12.0-15.0); Lymphocytes # (A) 2.04 X 10*3/uL (0.90-5.00); Lymphocytes % (A) 13.2 %; MCH 28.2 pg (27.0-32.0); MCHC 30.9 g/dL (32.0-37.0); MCV 91.2 FL (80.0-97.0); Mean Platelet Volume 10.6 FL (9.5-12.2); Monocytes # (A) 1.03 X 10*3/uL (0.20-1.00); Monocytes % (A) 6.7 %; NRBC Per 100 WBC 0 X 10*3/uL (0.00-0.01); Neutrophils # (A) 12.06 X 10*3/uL (1.80-7.70); Neutrophils % (A) 78.2 %; Platelet Count 203 X 10*3/uL (140-440); RBC 3.87 X 10*6/uL (4.10-5.20); RDW 14.6 % (11.5-14.5); WBC 15.43 X 10*3/uL (4.50-10.00)
[2023-10-22 09:51] LABS: ALT 9 U/L (8-44); AST 15 U/L (13-35); Albumin 2.8 g/dL (3.8-4.9); Albumin/Globulin Ratio 1.47 Ratio (1.60-3.17); Alkaline Phosphatase 76 U/L (41-126); BUN/Creat Ratio 23.33 Ratio (12.00-20.00); Calcium 7.7 mg/dL (8.7-10.3); Carbon Dioxide 21.7 mmol/L (21.6-31.8); Chloride 105 mmol/L (96-109); Globulin 1.9 g/dL (1.6-3.3); Glucose 77 mg/dL (70-110); Sodium 137 mmol/L (135-145); Total Bilirubin 0.5 mg/dL (0.3-1.2); Total Protein 4.7 g/dL (6.2-8.2)
[2023-10-22] MEDS ORDERED: bisacodyL 10 MG SUPP RECTAL STA (10:35)
--- NOTE | 2023-10-22 10:38 | P.PN ---
Subjective Progress Note Date: 10/22/23 Patricia Oh, is an 87-year-old female who presented to [facility] emergency room after sustaining a fall and complaining of hip pain. Patient states that she slipped and fell in the bathroom, she was unable to stand up, she denies any loss of consciousness, she denies any head injury, She was evaluated in the emergency room vital examination on presentation revealed a temperature of 97.9 pulse 75 respiration 16 blood pressure 127/57 pulse ox 95% on room air Laboratory data revealed a white blood count of 8.5 hemoglobin 12.3 platelet count 205 sodium 136 potassium 4.0 chloride 102 CO2 27 BUN 13 creatinine 0.8 Testing in the emergency room revealed pelvic x-ray revealed acute fracture of the right superior and inferior pubic ramus Patient was admitted to medical floor for further evaluation and treatment, orthopedic consultation was requested. Past medical history is significant for patient was recently admitted to [facility] with abdominal pain nausea vomiting and constipation, she also has a known history of hypertension and hyperlipidemia otherwise no significant past medical history. On 10/22/2023 patient was seen and examined on the medical floor she is alert and oriented 3 in no apparent distress she is complaining of cough and is complaining of right hip pain and complaining of constipation otherwise she denies any complaints. There is no fever or chills no headache or dizziness no chest pain no shortness of breath no nausea or vomiting no abdominal pain no diarrhea and no urinary symptoms. White blood count has increased from 9.8-15.4 since yesterday, chest x-ray revealed increased density in the right medial lung base that reflect developing infiltrate, patient has significant crackles on lung exam At this time patient will be started on IV antibiotic Zosyn, will check pro- calcitonin level, will check swallow evaluation to rule out aspiration. Objective - Vital Signs Vital signs: Vital Signs Temp 98.2 F 10/22/23 02:00 Pulse 86 10/22/23 02:00 Resp 17 10/22/23 02:00 BP 85/45 10/22/23 02:00 Pulse Ox 96 10/22/23 02:00 FiO2 Intake & Output 10/21/23 10/22/23 10/22/23 18:59 06:59 18:59 Output Total 100 75 Balance -100 -75 Weight 45.359 kg Output: Urine 100 75 Other: Voiding Method Incontinent External Catheter # Voids 1 - Exam In general patient is alert and oriented x 3 in no distress HEENT head normocephalic and atraumatic Neck is supple no JVD no goiter no lymphadenopathy no carotid bruit Chest examination reveals bilateral crackles no wheezing Cardiac exam reveals regular heart sounds S1 and S2 no gallops no murmurs Abdomen is soft nontender no organomegaly with normal bowel sounds Extremity exam reveals no edema no cyanosis or clubbing Neurological examination reveals no gross focal deficits - Labs CBC & Chem 7: 10/22/23 06:52 10/22/23 06:52 Labs: Abnormal Lab Results - Last 24 Hours (Table) 10/21/23 Range/Units 06:00 Sodium 136 L (137-145) mmol/L Total Protein 5.5 L (6.3-8.2) g/dL Albumin 3.0 L (3.5-5.0) g/dL Assessment and Plan Plan: Fall with pubic ramus fracture, orthopedic consultation requested Underlying history of hypertension Underlying history of hyperlipidemia Recent admission with gastroenteritis nausea vomiting and constipation Right lower lobe infiltrate with cough leukocytosis and significant crackles on lung exam suggestive of right lower lobe pneumonia, possibly related to aspiration, will start IV Zosyn, check pro-calcitonin, and check swallow evaluation, a repeat chest x-ray PA and lateral in a.m. tomorrow At this time patient is admitted to medical floor Home medications reviewed and reordered For DVT prophylaxis subcu Lovenox Orthopedic consultation was requested Will follow closely during this admission
--- NOTE | 2023-10-22 11:07 | P.PN ---
Subjective Progress Note Date: 10/22/23 Principal diagnosis: Pubic Ramii fractures Patient is an 87-year-old female seen at bedside this am. We are following for pubic ramii fractures. She seems to be doing better today. She has no pain at rest. She continues to have pain around the pelvis buttock area as expected with movement. She has no new complaints. She denies numbness, fever, chills, chest pain, headache. Objective - Vital Signs Vital signs: Vital Signs Temp 97.9 F 10/22/23 07:53 Pulse 67 10/22/23 07:53 Resp 18 10/22/23 07:53 BP 101/43 10/22/23 07:53 Pulse Ox 93 L 10/22/23 09:43 FiO2 Intake & Output 10/21/23 10/22/23 10/22/23 18:59 06:59 18:59 Output Total 100 75 Balance -100 -75 Weight 45.359 kg Output: Urine 100 75 Other: Voiding Method Incontinent External Catheter Incontinent External Catheter # Voids 1 - Exam . Exam of the upper extremities is unremarkable. She has full range of motion of the shoulders, elbows, wrists and fingers bilaterally. Neurovascular status to the upper extremities is intact. Exam of the lower extremities reveals no obvious deformity or shortening. There is pain with motion to the right leg. She has full foot and ankle motion on the right without difficulty or pain. She has fairly good motion to the left hip and knee. Neurovascular status to the lower extremities is intact. - Constitutional General appearance: Present: no acute distress - Labs CBC & Chem 7: 10/22/23 06:52 10/22/23 06:52 Labs: Abnormal Lab Results - Last 24 Hours (Table) 10/22/23 10/22/23 Range/Units 06:52 06:52 WBC 15.43 H (4.50-10.00) X 10*3/uL RBC 3.87 L (4.10-5.20) X 10*6/uL Hgb 10.9 L (12.0-15.0) g/dL Hct 35.3 L (37.2-46.3) % MCHC 30.9 L (32.0-37.0) g/dL RDW 14.6 H (11.5-14.5) % Neutrophils # 12.06 H (1.80-7.70) X 10*3/uL Monocytes # 1.03 H (0.20-1.00) X 10*3/uL BUN/Creatinine Ratio 23.33 H (12.00-20.00) Ratio Calcium 7.7 L (8.7-10.3) mg/dL Total Protein 4.7 L (6.2-8.2) g/dL Albumin 2.8 L (3.8-4.9) g/dL Albumin/Globulin Ratio 1.47 L (1.60-3.17) Ratio Assessment and Plan (1) Pubic ramus fracture Narrative/Plan: She will continue with routine orthopedic protocol including pain management, PT/OT, DVT prophylaxis and medical management. She may be TDWB to tolerance with walker at all times. She is pending ECF placement and may transfer when authorized Current Visit: Yes Status: Acute Priority: Medium Code(s): S32.599A - OTH FRACTURE OF UNSP PUBIS, INIT ENCNTR FOR CLOSED FRACTURE SNOMED Code(s): 27039857 Time with Patient: Less than 30
[2023-10-22] MEDS: PIPERACILLIN-TAZOBACTAM 3.375 GM in SODIUM CHLORIDE 0.9% 100 ML IVPB SCH ×2 (11:51→20:07)
[2023-10-22] MEDS: SODIUM CHLORIDE 0.9% 1,000 ML IV SCH (15:57)
[2023-10-22] MEDS: ONDANSETRON 4 MG/2 ML VIAL IVP PRN (17:08)
[2023-10-22] MEDS: ATORVASTATIN 10 MG TAB PO SCH (20:07)
[2023-10-23] MEDS: SODIUM CHLORIDE 0.9% 1,000 ML IV SCH ×3 (02:59→21:52)
[2023-10-23] MEDS: PIPERACILLIN-TAZOBACTAM 3.375 GM in SODIUM CHLORIDE 0.9% 100 ML IVPB SCH ×3 (03:00→18:42)
[2023-10-23] MEDS: traMADol 50 MG TAB PO PRN (04:43)
[2023-10-23 07:42] LABS: Basophils % (A) 0 %; Eosinophils % (A) 0 %; HCT 34.5 % (34.0-46.0); HGB 11.5 gm/dL (11.4-16.0); Lymphocytes # (A) 1.5 k/uL (1.0-4.8); Lymphocytes % (A) 13 %; MCH 29.9 pg (25.0-35.0); MCHC 33.2 g/dL (31.0-37.0); Mean Platelet Volume 8.1; Monocytes # (A) 0.7 k/uL (0-1.0); Monocytes % (A) 6 %; Neutrophils # (A) 8.8 k/uL (1.3-7.7); Neutrophils % (A) 79 %; Platelet Count 203 k/uL (150-450); RBC 3.83 m/uL (3.80-5.40); RDW 14.1 % (11.5-15.5); WBC 11.2 k/uL (3.8-10.6)
[2023-10-23 07:49] LABS: ALT 14 U/L (4-34); AST 19 U/L (14-36); African American GFR (CKD) 70 (>60 ml/min/1.73 sqM); Albumin 2.4 g/dL (3.5-5.0); Alkaline Phosphatase 91 U/L (38-126); Anion Gap 8 mmol/L; Blood Urea Nitrogen 20 mg/dL (7-17); Calcium 7.5 mg/dL (8.4-10.2); Carbon Dioxide 24 mmol/L (22-30); Chloride 104 mmol/L (98-107); Globulin 2.4 g/dL; Glucose 102 mg/dL (74-99); Non-African American GFR(CKD) 61 (>60 ml/min/1.73 sqM); Potassium 3.6 mmol/L (3.5-5.1); Sodium 136 mmol/L (137-145); Total Bilirubin 0.8 mg/dL (0.2-1.3); Total Protein 4.8 g/dL (6.3-8.2)
[2023-10-23] MEDS: DOCUSATE 100 MG CAP PO SCH ×2 (08:06→20:57)
[2023-10-23] MEDS: amLODIPine 5 MG TAB PO SCH (08:06)
[2023-10-23] MEDS: ENOXAPARIN 40 MG/0.4 ML SYRINGE SQ SCH (08:06)
[2023-10-23] MEDS: PANTOPRAZOLE 40 MG TABLET PO SCH (08:06)
[2023-10-23] MEDS: LACTULOSE 20 GM/30 ML CUP PO SCH ×2 (08:06→20:57)
--- NOTE | 2023-10-23 10:23 | P.PN ---
Subjective Progress Note Date: 10/23/23 Patricia Oh, is an 87-year-old female who presented to [facility] emergency room after sustaining a fall and complaining of hip pain. Patient states that she slipped and fell in the bathroom, she was unable to stand up, she denies any loss of consciousness, she denies any head injury, She was evaluated in the emergency room vital examination on presentation revealed a temperature of 97.9 pulse 75 respiration 16 blood pressure 127/57 pulse ox 95% on room air Laboratory data revealed a white blood count of 8.5 hemoglobin 12.3 platelet count 205 sodium 136 potassium 4.0 chloride 102 CO2 27 BUN 13 creatinine 0.8 Testing in the emergency room revealed pelvic x-ray revealed acute fracture of the right superior and inferior pubic ramus Patient was admitted to medical floor for further evaluation and treatment, orthopedic consultation was requested. Past medical history is significant for patient was recently admitted to [facility] with abdominal pain nausea vomiting and constipation, she also has a known history of hypertension and hyperlipidemia otherwise no significant past medical history. On 10/22/2023 patient was seen and examined on the medical floor she is alert and oriented 3 in no apparent distress she is complaining of cough and is complaining of right hip pain and complaining of constipation otherwise she denies any complaints. There is no fever or chills no headache or dizziness no chest pain no shortness of breath no nausea or vomiting no abdominal pain no diarrhea and no urinary symptoms. White blood count has increased from 9.8-15.4 since yesterday, chest x-ray revealed increased density in the right medial lung base that reflect developing infiltrate, patient has significant crackles on lung exam At this time patient will be started on IV antibiotic Zosyn, will check pro- calcitonin level, will check swallow evaluation to rule out aspiration. On 10/23/2023 patient is alert and oriented 3 currently resting in bed. Patient remains on IV Zosyn. White blood cell improving 11.2. Speech to evaluate swallow. Repeat 2 view chest x-ray ordered sputum culture ordered. Vital signs temp 98.2, heart rate 77, respiratory rate 18, blood pressure 104/55 with a pulse ox 93% on 2 L Objective - Vital Signs Vital signs: Vital Signs Temp 98 F 10/23/23 07:15 Pulse 82 11/26/23 07:15 Resp 19 10/23/23 07:15 BP 104/55 10/23/23 07:15 Pulse Ox 93 L 10/23/23 07:15 FiO2 Intake & Output 10/22/23 10/23/23 10/23/23 18:59 06:59 18:59 Intake Total 120 Output Total 100 Balance 20 Intake: Oral 120 Output: Urine 100 Other: Voiding Method Incontinent Incontinent Incontinent External Catheter External Catheter External Catheter # Voids 1 2 # Bowel Movements 1 1 - Exam In general patient is alert and oriented x 3 in no distress HEENT head normocephalic and atraumatic Neck is supple no JVD no goiter no lymphadenopathy no carotid bruit Chest examination is clear to auscultation no crackles no wheezing Cardiac exam reveals regular heart sounds S1 and S2 no gallops no murmurs Abdomen is soft nontender no organomegaly with normal bowel sounds Extremity exam reveals no edema no cyanosis or clubbing Neurological examination reveals no gross focal deficits - Labs CBC & Chem 7: 10/23/23 07:04 10/23/23 07:04 Labs: Abnormal Lab Results - Last 24 Hours (Table) 10/22/23 10/23/23 10/23/23 Range/Units 06:52 07:04 07:04 WBC 11.2 H (3.8-10.6) k/uL Neutrophils # 8.8 H (1.3-7.7) k/uL Sodium 136 L (137-145) mmol/L BUN 20 H (7-17) mg/dL Glucose 102 H (74-99) mg/dL Calcium 7.5 L (8.4-10.2) mg/dL Total Protein 4.8 L (6.3-8.2) g/dL Albumin 2.4 L (3.5-5.0) g/dL Procalcitonin 1.46 H (0.02-0.09) ng/mL Assessment and Plan Assessment: Fall with pubic ramus fracture, orthopedic consultation requested Underlying history of hypertension Underlying history of hyperlipidemia Recent admission with gastroenteritis nausea vomiting and constipation Concerns for aspiration pneumonia. Patient started on IV Zosyn. Speech service is consulted to assess swallow At this time patient is admitted to medical floor Home medications reviewed and reordered For DVT prophylaxis subcu Lovenox Orthopedic consultation was requested Will follow closely during this admission Per orthopedic surgery no plans for surgical intervention at this time. Discharge planning in progress
--- NOTE | 2023-10-23 11:01 | XR ---
EXAMINATION TYPE: XR chest 2V DATE OF EXAM: 10/23/2023 10:54 AM CLINICAL INDICATION:Female, 87 years old with history of Follow-up right lower lobe infiltrate; [facility] COMPARISON: Chest radiograph 10/21/2023. TECHNIQUE: XR chest 2V Frontal and lateral views of the chest. FINDINGS: Lungs/Pleura: Mild interval progression of hazy right lung base airspace opacities. No evidence of pn eumothorax or large effusion. Opacity within the left upper lung is also slightly increased. Pulmonary vascularity: Unremarkable. Heart/mediastinum: Cardiomediastinal silhouette is unremarkable. Musculoskeletal: No acute osseous pathology. IMPRESSION: Findings of progressed right lower and left upper lung airspace opacities, concerning for developing airspace disease
--- NOTE | 2023-10-23 12:47 | P.PN ---
Subjective Progress Note Date: 10/23/23 Principal diagnosis: Pubic Ramii fractures Patient is an 87-year-old female seen at bedside this am. We are following for pubic ramii fractures. She seems to be doing okay or better today. She has eaten a little. She has no pain at rest. She continues to have pain around the pelvis buttock area as expected with movement. She has no new complaints. She denies numbness, fever, chills, chest pain, headache. Objective - Vital Signs Vital signs: Vital Signs Temp 98 F 10/23/23 07:15 Pulse 82 10/23/23 07:15 Resp 19 10/23/23 07:15 BP 104/55 10/23/23 07:15 Pulse Ox 93 L 10/23/23 07:15 FiO2 Intake & Output 10/22/23 10/23/23 10/23/23 18:59 06:59 18:59 Intake Total 120 Output Total 100 Balance 20 Intake: Oral 120 Output: Urine 100 Other: Voiding Method Incontinent Incontinent Incontinent External Catheter External Catheter External Catheter # Voids 1 2 # Bowel Movements 1 1 - Exam . Exam of the upper extremities is unremarkable. She has full range of motion of the shoulders, elbows, wrists and fingers bilaterally. Neurovascular status to the upper extremities is intact. Exam of the lower extremities reveals no obvious deformity or shortening. There is pain with motion to the right leg. She has full foot and ankle motion on the right without difficulty or pain. She has fairly good motion to the left hip and knee. Neurovascular status to the lower extremities is intact. - Constitutional General appearance: Present: no acute distress - Labs CBC & Chem 7: 10/23/23 07:04 10/23/23 07:04 Labs: Abnormal Lab Results - Last 24 Hours (Table) 10/22/23 10/23/23 10/23/23 Range/Units 06:52 07:04 07:04 WBC 11.2 H (3.8-10.6) k/uL Neutrophils # 8.8 H (1.3-7.7) k/uL Sodium 136 L (137-145) mmol/L BUN 20 H (7-17) mg/dL Glucose 102 H (74-99) mg/dL Calcium 7.5 L (8.4-10.2) mg/dL Total Protein 4.8 L (6.3-8.2) g/dL Albumin 2.4 L (3.5-5.0) g/dL Procalcitonin 1.46 H (0.02-0.09) ng/mL Assessment and Plan (1) Pubic ramus fracture Narrative/Plan: She will continue with routine orthopedic protocol including pain management, PT/OT, DVT prophylaxis and medical management. She may be TDWB to tolerance with walker at all times. She is pending ECF placement and may transfer tomorrow if/when authorized Current Visit: Yes Status: Acute Priority: Medium Code(s): S32.599A - OTH FRACTURE OF UNSP PUBIS, INIT ENCNTR FOR CLOSED FRACTURE SNOMED Code(s): 98535948 Time with Patient: Less than 30
[2023-10-23] MEDS: ACETAMINOPHEN TAB 325 MG TAB PO PRN ×2 (16:05→21:52)
[2023-10-23] MEDS: ATORVASTATIN 10 MG TAB PO SCH (20:57)
[2023-10-24] MEDS: PIPERACILLIN-TAZOBACTAM 3.375 GM in SODIUM CHLORIDE 0.9% 100 ML IVPB SCH ×3 (03:17→18:00)
[2023-10-24] MEDS: ACETAMINOPHEN TAB 325 MG TAB PO PRN ×2 (05:41→18:38)
[2023-10-24] MEDS: SODIUM CHLORIDE 0.9% 1,000 ML IV SCH ×2 (05:43→10:12)
[2023-10-24] MEDS: PANTOPRAZOLE 40 MG TABLET PO SCH (08:06)
[2023-10-24] MEDS: DOCUSATE 100 MG CAP PO SCH ×2 (08:07→21:13)
[2023-10-24] MEDS: ENOXAPARIN 40 MG/0.4 ML SYRINGE SQ SCH (08:07)
[2023-10-24] MEDS: amLODIPine 5 MG TAB PO SCH (08:07)
[2023-10-24] MEDS: LACTULOSE 20 GM/30 ML CUP PO SCH ×2 (08:07→21:13)
--- NOTE | 2023-10-24 08:44 | P.DS ---
Providers Date of admission: 10/20/23 05:53 Expected date of discharge: 10/24/23 Attending physician: Dick Ovalles Consults: 10/20/23 05:53 Consult Physician Routine Consulting Provider: Yanet Fournier Consult Reason/Comments: medical managment Do you want consulting provider notified?: Yes 10/20/23 11:47 Consult Physician Routine Consulting Provider: Alfonso Kinney Consult Reason/Comments: eval for IPR Do you want consulting provider notified?: Yes Primary care physician: Jazlyn Ortega - Discharge Diagnosis(es) (1) Pubic ramus fracture Current Visit: Yes Status: Acute Priority: Medium (2) Status post fall Current Visit: Yes Status: Acute Hospital Course: This is an 87-year-old female who presented to the emergency department on 10/20/2023 after falling when she got up to the bathroom. She states that she lost balance with her walker and landed directly on her buttock. She is complaining of pain around the right hip and pelvis. 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 Her surgery was not performed around here. She denies head injury or loss of consciousness in this recent fall. She has no other complaints aside from the right hip and buttock pain. The patient is admitted to our service for further evaluation and care. The patient has continued to have pain to the right groin and buttock with attempts for ambulation. It is recommended she go to inpatient rehab at discharge. She may be discharged to inpatient rehab today if cleared medically. Please see med rec for accurate list of home medications. She is to continue toe-touch weightbearing only to the right lower extremity. Patient Condition at Discharge: Stable Plan - Discharge Summary Discharge Rx Participant: No New Discharge Prescriptions: New traMADol HCl [Ultram] 50 mg PO Q6HR PRN #28 tab PRN Reason: Pain No Action Simvastatin [Zocor] 20 mg PO HS amLODIPine [Norvasc] 5 mg PO DAILY Lactulose 20 gm PO DAILY PRN 7 Days #210 ml PRN Reason: Constipation Omeprazole 20 mg PO DAILY Docusate [Colace] 100 mg PO BID 30 Days #60 cap Ondansetron Odt [Zofran Odt] 4 mg PO Q8HR PRN #10 tab PRN Reason: Nausea Discharge Medication List Simvastatin [Zocor] 20 mg PO HS 11/03/20 [History] Omeprazole 20 mg PO DAILY 08/18/22 [History] amLODIPine [Norvasc] 5 mg PO DAILY 09/02/23 [History] Docusate [Colace] 100 mg PO BID 30 Days #60 cap 10/16/23 [Rx] Lactulose 20 gm PO DAILY PRN 7 Days #210 ml 10/16/23 [Rx] Ondansetron Odt [Zofran Odt] 4 mg PO Q8HR PRN #10 tab 10/18/23 [Rx] traMADol HCl [Ultram] 50 mg PO Q6HR PRN #28 tab 10/24/23 [Rx] Follow up Appointment(s)/Referral(s): Jazlyn Ortega MD [Primary Care Provider] - 1-2 days Dick Ovalles MD [STAFF PHYSICIAN] - 3 Weeks Patient Instructions/Handouts: Phan Catheter Placement and Care (DC), Urinary Leg Bag (GEN) Activity/Diet/Wound Care/Special Instructions: TDWB with walker at all times take meds as directed F/u with Dr. Ovalles in office Discharge Disposition: TRANSFER TO SNF/ECF
[2023-10-24 08:49] LABS: Basophils # (A) 0.06 X 10*3/uL (0.00-0.10); Basophils % (A) 0.6 %; Eosinophils # (A) 0.25 X 10*3/uL (0.04-0.35); Eosinophils % (A) 2.7 %; HCT 33.6 % (37.2-46.3); HGB 10.8 g/dL (12.0-15.0); Lymphocytes # (A) 2.14 X 10*3/uL (0.90-5.00); Lymphocytes % (A) 22.8 %; MCH 29.2 pg (27.0-32.0); MCHC 32.1 g/dL (32.0-37.0); MCV 90.8 FL (80.0-97.0); Mean Platelet Volume 11.5 FL (9.5-12.2); Monocytes # (A) 0.87 X 10*3/uL (0.20-1.00); Monocytes % (A) 9.3 %; NRBC Per 100 WBC 0 X 10*3/uL (0.00-0.01); Neutrophils # (A) 6.04 X 10*3/uL (1.80-7.70); Neutrophils % (A) 64.2 %; Platelet Count 208 X 10*3/uL (140-440); RDW 14.6 % (11.5-14.5)
[2023-10-24 08:53] LABS: ALT 11 U/L (8-44); AST 12 U/L (13-35); Albumin 2.6 g/dL (3.8-4.9); Albumin/Globulin Ratio 1.44 Ratio (1.60-3.17); Alkaline Phosphatase 94 U/L (41-126); BUN/Creat Ratio 21.88 Ratio (12.00-20.00); Blood Urea Nitrogen 17.5 mg/dL (9.0-27.0); Calcium 7.8 mg/dL (8.7-10.3); Carbon Dioxide 23.9 mmol/L (21.6-31.8); Chloride 109 mmol/L (96-109); Globulin 1.8 g/dL (1.6-3.3); Glucose 91 mg/dL (70-110); Sodium 141 mmol/L (135-145); Total Bilirubin 0.5 mg/dL (0.3-1.2); Total Protein 4.4 g/dL (6.2-8.2)
[2023-10-24] MEDS: ONDANSETRON 4 MG/2 ML VIAL IVP PRN (10:17)
--- NOTE | 2023-10-24 15:32 | P.PN ---
Subjective Progress Note Date: 10/24/23 Principal diagnosis: Pubic rami fracture, debility Patricia Oh is a 87 y.o. female , right handed, who lives in a first floor apartment with [address], with her son and daughter in law. Prior to admission, she was ambulating with a walker. She needed some assistance for basic/advanced ADLs. Current driving: no. Transportation by: son, family. Retired: yes. Support system: family, son She was admitted to [facility] 10/20. She presented to the ED c/o post fall. Patient reported that she slipped and fell in the bathroom on the evening of arrival to the ED. She complained of right hip pain and was unable to stand up. X-ray showed superior and inferior pubic rami fractures noted on the right with possible extension into the acetabulum. orthopedics was consulted. Orthopedic recommended a CT scan for further evaluations of the fractures which showed fractures of the right ischium and right inferior pubic ramus with no extension of the fractures into the acetabulum and the arthroplasty components intact. She was made TDWB RLE with walker as tolerated with no surgical intervention required. CT of the head showed no acute hemorrhage or mass effect. X-ray of the lumbar spine showed nothing acute. PM&R consulted for rehab recommendations. Therapy evaluations pending 10/21/23: patient found in bed with HOB elevated, son at bedside. She is on 2 liters supplemental oxygen which she does not use at home. Patient reports that pain is managed. She c/o chronic "stomach issues" for the last several years. She vomited during evaluation. Nursing notified. Patient has had rehabilitation at a [facility] in the past that she states went well. Patient and son deny other concerns at this time. 10/24/23: Patient doing ok. Reports she is still not walking due to the pain in her pelvis. She denies CP, is on oxygen which is new for her, no abdominal pain. She is using a purewick, had a BM. She admits to decreased appetite. Discussed rehab options with patient. She reports her son is going to be having a major surgery in 2 weeks and will not be able to help with her. Her daughter in law works and will be assisting her son. She is agreeable to [facility] which is appropriate. Therapy Progress: Reviewed therapy notes; patient is max assist with bathing, total assist with toileting, UB dressing mod assist, total assist with bed mobility and transfers, unable to ambulate. Objective - Vital Signs Vital signs: Vital Signs Temp 97.6 F 10/24/23 13:02 Pulse 64 10/24/23 13:02 Resp 18 10/24/23 13:02 BP 122/51 10/24/23 13:02 Pulse Ox 99 10/24/23 13:02 FiO2 Intake & Output 10/23/23 10/24/23 10/24/23 18:59 06:59 18:59 Output Total 120 Balance -120 Weight 45.359 kg Output: Urine 120 Other: Voiding Method Incontinent Incontinent Incontinent External Catheter External Catheter External Catheter # Voids 1 1 # Bowel Movements 1 - Exam General: WDWN, elderly female, sitting up in bed, son at bedside Head: Normocephalic, atraumatic. Eyes: Symmetric Ears: Symmetric. Hearing within normal limits. Mouth: Clear. Neck: Supple. Cardiac: Regular rate and rhythm. Calves supple, non tender, no edema Lungs: Breathing comfortably on 2 liters nasal cannula. Chest symmetric. Abdomen: Multiple episodes of emesis during encounter Extremities: Arthritic changes consistent with age. Neurological: Alert and oriented x3. Speech is clear and fluent without paraphasic errors Cranial nerves: CN II-XII: intact. Sensation: Intact and symmetrical limbs. Musculoskeletal: ROM WFL EXCEPT: MMT UE Sh Abd EE EF FABD WE HG Right 4 4 5 5 5 5 Left 4 4 5 5 5 5 MMT LE HF KE DF EHL Right 4 4 4 4 Left 4 4 4 4 Reflexes Biceps Triceps Brachioradialis Patella Achilles Babinski Hoffmans Right Left Skin: Skin intact where visible to head, neck, and bilateral upper and lower extremities EXCEPT: PIV Psych: Calm, cooperative - Labs CBC & Chem 7: 10/24/23 04:51 10/24/23 04:51 Labs: Abnormal Lab Results - Last 24 Hours (Table) 10/24/23 10/24/23 Range/Units 04:51 04:51 RBC 3.70 L (4.10-5.20) X 10*6/uL Hgb 10.8 L (12.0-15.0) g/dL Hct 33.6 L (37.2-46.3) % RDW 14.6 H (11.5-14.5) % BUN/Creatinine Ratio 21.88 H (12.00-20.00) Ratio Calcium 7.8 L (8.7-10.3) mg/dL AST 12 L (13-35) U/L Total Protein 4.4 L (6.2-8.2) g/dL Albumin 2.6 L (3.8-4.9) g/dL Albumin/Globulin Ratio 1.44 L (1.60-3.17) Ratio Microbiology - Last 24 Hours (Table) 10/23/23 23:32 Gram Stain - Preliminary Sputum Assessment and Plan Assessment: #Gait impairment/impaired ADLs secondary to right ischium and inferior pubic ramus fracture s/p fall -Orthopedics following -TDWB of right lower extremity as tolerated with walker #s/p fall -fall precautions #Chronic nausea/vomiting #History of lung cancer with radiation #Bowel/ Bladder: Nursing to monitor and report concerns if any. #Diet -Healthy heart diet with Magic cup twice daily #Skin/wound: Skin/Wound care to follow as needed #Pain Management -Tylenol 650 mg every 6 hours as needed, [place] 7.5/325 mg every 6 hours as needed, morphine 4 mg every 4 hours as needed #DVT Prophylaxis: -Lovenox #Comorbidities: GERD, hyperlipidemia, hypertension #Your medical dx and mgt Goals: Modified Independent mobility and ADLS both basic and advanced; increased functional mobility/strength; increased balance, safety, endurance. Improvement in medical issues through your care. Barriers: Pain, endurance, TDWB RLE Discharge recommendation: [facility] at discharge. Patient unlikely able to tolerate 3 hours of therapy daily, but would benefit from structured rehabilitation prior to discharge home.
--- NOTE | 2023-10-24 18:13 | P.PN ---
Subjective Progress Note Date: 10/24/23 Patricia Oh, is an 87-year-old female who presented to [facility] emergency room after sustaining a fall and complaining of hip pain. Patient states that she slipped and fell in the bathroom, she was unable to stand up, she denies any loss of consciousness, she denies any head injury, She was evaluated in the emergency room vital examination on presentation revealed a temperature of 97.9 pulse 75 respiration 16 blood pressure 127/57 pulse ox 95% on room air Laboratory data revealed a white blood count of 8.5 hemoglobin 12.3 platelet count 205 sodium 136 potassium 4.0 chloride 102 CO2 27 BUN 13 creatinine 0.8 Testing in the emergency room revealed pelvic x-ray revealed acute fracture of the right superior and inferior pubic ramus Patient was admitted to medical floor for further evaluation and treatment, orthopedic consultation was requested. Past medical history is significant for patient was recently admitted to [facility] with abdominal pain nausea vomiting and constipation, she also has a known history of hypertension and hyperlipidemia otherwise no significant past medical history. On 10/22/2023 patient was seen and examined on the medical floor she is alert and oriented 3 in no apparent distress she is complaining of cough and is complaining of right hip pain and complaining of constipation otherwise she denies any complaints. There is no fever or chills no headache or dizziness no chest pain no shortness of breath no nausea or vomiting no abdominal pain no diarrhea and no urinary symptoms. White blood count has increased from 9.8-15.4 since yesterday, chest x-ray revealed increased density in the right medial lung base that reflect developing infiltrate, patient has significant crackles on lung exam At this time patient will be started on IV antibiotic Zosyn, will check pro- calcitonin level, will check swallow evaluation to rule out aspiration. On 10/23/2023 patient is alert and oriented 3 currently resting in bed. Patient remains on IV Zosyn. White blood cell improving 11.2. Speech to evaluate swallow. Repeat 2 view chest x-ray ordered sputum culture ordered. Vital signs temp 98.2, heart rate 77, respiratory rate 18, blood pressure 104/55 with a pulse ox 93% on 2 L On 10/24/2023 patient was seen and examined on the medical floor she is alert and oriented 3 in no apparent distress, there is no fever or chills no headache or dizziness no chest pain no shortness of breath no cough no nausea or vomiting no abdominal pain no diarrhea and no urinary symptoms. Patient is still unable to stand and walk with help due to severe pain. We are awaiting insurance authorization for rehab admission. Objective - Vital Signs Vital signs: Vital Signs Temp 97.6 F 10/24/23 13:02 Pulse 64 10/24/23 13:02 Resp 18 10/24/23 13:02 BP 122/51 10/24/23 13:02 Pulse Ox 99 10/24/23 13:02 FiO2 Intake & Output 10/23/23 10/24/23 10/24/23 18:59 06:59 18:59 Output Total 120 Balance -120 Weight 45.359 kg Output: Urine 120 Other: Voiding Method Incontinent Incontinent Incontinent External Catheter External Catheter External Catheter # Voids 1 1 # Bowel Movements 1 - Exam In general patient is alert and oriented x 3 in no distress HEENT head normocephalic and atraumatic Neck is supple no JVD no goiter no lymphadenopathy no carotid bruit Chest examination reveals bilateral crackles no wheezing Cardiac exam reveals regular heart sounds S1 and S2 no gallops no murmurs Abdomen is soft nontender no organomegaly with normal bowel sounds Extremity exam reveals no edema no cyanosis or clubbing Neurological examination reveals no gross focal deficits - Labs CBC & Chem 7: 10/24/23 04:51 10/24/23 04:51 Labs: Abnormal Lab Results - Last 24 Hours (Table) 10/24/23 10/24/23 Range/Units 04:51 04:51 RBC 3.70 L (4.10-5.20) X 10*6/uL Hgb 10.8 L (12.0-15.0) g/dL Hct 33.6 L (37.2-46.3) % RDW 14.6 H (11.5-14.5) % BUN/Creatinine Ratio 21.88 H (12.00-20.00) Ratio Calcium 7.8 L (8.7-10.3) mg/dL AST 12 L (13-35) U/L Total Protein 4.4 L (6.2-8.2) g/dL Albumin 2.6 L (3.8-4.9) g/dL Albumin/Globulin Ratio 1.44 L (1.60-3.17) Ratio Microbiology - Last 24 Hours (Table) 10/23/23 23:32 Gram Stain - Preliminary Sputum Assessment and Plan Plan: Fall with pubic ramus fracture, orthopedic consultation requested Underlying history of hypertension Underlying history of hyperlipidemia Recent admission with gastroenteritis nausea vomiting and constipation Right lower lobe infiltrate with cough leukocytosis and significant crackles on lung exam suggestive of right lower lobe pneumonia, possibly related to aspiration, will start IV Zosyn, check pro-calcitonin, and check swallow evaluation, a repeat chest x-ray PA and lateral in a.m. tomorrow At this time patient is admitted to medical floor Home medications reviewed and reordered For DVT prophylaxis subcu Lovenox Orthopedic consultation was requested Will follow closely during this admission
[2023-10-24] MEDS: ATORVASTATIN 10 MG TAB PO SCH (21:14)
[2023-10-25] MEDS: ACETAMINOPHEN TAB 325 MG TAB PO PRN ×4 (01:58→23:07)
[2023-10-25] MEDS: PIPERACILLIN-TAZOBACTAM 3.375 GM in SODIUM CHLORIDE 0.9% 100 ML IVPB SCH ×3 (02:19→18:06)
[2023-10-25] MEDS: SODIUM CHLORIDE 0.9% 1,000 ML IV SCH ×3 (02:20→22:50)
[2023-10-25] MEDS: DOCUSATE 100 MG CAP PO SCH ×2 (08:11→21:11)
[2023-10-25] MEDS: LACTULOSE 20 GM/30 ML CUP PO SCH ×2 (08:11→21:11)
[2023-10-25] MEDS: PANTOPRAZOLE 40 MG TABLET PO SCH (08:14)
[2023-10-25] MEDS: amLODIPine 5 MG TAB PO SCH (08:14)
[2023-10-25] MEDS: ENOXAPARIN 40 MG/0.4 ML SYRINGE SQ SCH (08:14)
--- NOTE | 2023-10-25 09:31 | P.PN ---
Subjective Progress Note Date: 10/25/23 Patricia Oh, is an 87-year-old female who presented to [facility] emergency room after sustaining a fall and complaining of hip pain. Patient states that she slipped and fell in the bathroom, she was unable to stand up, she denies any loss of consciousness, she denies any head injury, She was evaluated in the emergency room vital examination on presentation revealed a temperature of 97.9 pulse 75 respiration 16 blood pressure 127/57 pulse ox 95% on room air Laboratory data revealed a white blood count of 8.5 hemoglobin 12.3 platelet count 205 sodium 136 potassium 4.0 chloride 102 CO2 27 BUN 13 creatinine 0.8 Testing in the emergency room revealed pelvic x-ray revealed acute fracture of the right superior and inferior pubic ramus Patient was admitted to medical floor for further evaluation and treatment, orthopedic consultation was requested. Past medical history is significant for patient was recently admitted to [facility] with abdominal pain nausea vomiting and constipation, she also has a known history of hypertension and hyperlipidemia otherwise no significant past medical history. On 10/22/2023 patient was seen and examined on the medical floor she is alert and oriented 3 in no apparent distress she is complaining of cough and is complaining of right hip pain and complaining of constipation otherwise she denies any complaints. There is no fever or chills no headache or dizziness no chest pain no shortness of breath no nausea or vomiting no abdominal pain no diarrhea and no urinary symptoms. White blood count has increased from 9.8-15.4 since yesterday, chest x-ray revealed increased density in the right medial lung base that reflect developing infiltrate, patient has significant crackles on lung exam At this time patient will be started on IV antibiotic Zosyn, will check pro- calcitonin level, will check swallow evaluation to rule out aspiration. On 10/23/2023 patient is alert and oriented 3 currently resting in bed. Patient remains on IV Zosyn. White blood cell improving 11.2. Speech to evaluate swallow. Repeat 2 view chest x-ray ordered sputum culture ordered. Vital signs temp 98.2, heart rate 77, respiratory rate 18, blood pressure 104/55 with a pulse ox 93% on 2 L On 10/24/2023 patient was seen and examined on the medical floor she is alert and oriented 3 in no apparent distress, there is no fever or chills no headache or dizziness no chest pain no shortness of breath no cough no nausea or vomiting no abdominal pain no diarrhea and no urinary symptoms. Patient is still unable to stand and walk with help due to severe pain. We are awaiting insurance authorization for rehab admission. On 10/25/2023 patient is alert and oriented 3. Awaiting insurance authorization for discharge placement. Speech pathology notes reviewed no issues with swallowing continue regular diet with thin liquids. Patient will be DC'd on Augmentin for continued treatment of pneumonia. Patient also started on Megace. Patient denies chest pain or shortness of breath. Patient denies nausea vomiting or diarrhea. Patient denies any urinary burning or frequency Objective - Vital Signs Vital signs: Vital Signs Temp 97.7 F 10/25/23 07:59 Pulse 74 10/25/23 07:59 Resp 19 10/25/23 07:59 BP 127/55 10/25/23 07:59 Pulse Ox 93 L 10/25/23 09:21 FiO2 Intake & Output 10/24/23 10/25/23 10/25/23 18:59 06:59 18:59 Output Total 300 50 Balance -300 -50 Weight 45.359 kg Output: Urine 300 50 Other: Voiding Method Incontinent Incontinent External Catheter External Catheter External Catheter # Voids 3 1 # Bowel Movements 3 1 - Exam In general patient is alert and oriented x 3 in no distress HEENT head normocephalic and atraumatic Neck is supple no JVD no goiter no lymphadenopathy no carotid bruit Chest examination reveals bilateral crackles no wheezing Cardiac exam reveals regular heart sounds S1 and S2 no gallops no murmurs Abdomen is soft nontender no organomegaly with normal bowel sounds Extremity exam reveals no edema no cyanosis or clubbing Neurological examination reveals no gross focal deficits - Labs CBC & Chem 7: 10/24/23 04:51 10/24/23 04:51 Labs: Microbiology - Last 24 Hours (Table) 10/23/23 23:32 Gram Stain - Preliminary Sputum Assessment and Plan Plan: Fall with pubic ramus fracture, orthopedic consultation requested Underlying history of hypertension Underlying history of hyperlipidemia Recent admission with gastroenteritis nausea vomiting and constipation Right lower lobe infiltrate with cough leukocytosis and significant crackles on lung exam suggestive of right lower lobe pneumonia, possibly related to aspiration, will start IV Zosyn, check pro-calcitonin, and check swallow evalua tion, a repeat chest x-ray PA and lateral in a.m. tomorrow. Speech eval completed recognitions regular diet and liquids At this time patient is admitted to medical floor Home medications reviewed and reordered For DVT prophylaxis subcu Lovenox Orthopedic consultation was requested Will follow closely during this admission
[2023-10-25] MEDS: ONDANSETRON 4 MG/2 ML VIAL IVP PRN (15:52)
[2023-10-25] MEDS: ATORVASTATIN 10 MG TAB PO SCH (21:10)
[2023-10-26] MEDS: PIPERACILLIN-TAZOBACTAM 3.375 GM in SODIUM CHLORIDE 0.9% 100 ML IVPB SCH ×2 (03:57→11:40)
[2023-10-26] MEDS: ACETAMINOPHEN TAB 325 MG TAB PO PRN (05:22)
--- NOTE | 2023-10-26 07:37 | P.PN ---
Subjective Progress Note Date: 10/26/23 Principal diagnosis: Pubic rami fractures. Status post fall. this is an 87-year-old female who has been admitted since 10/19/2023 for pubic rami fractures. Insurance authorization is pending for inpatient rehab. Vital signs are stable. Objective - Vital Signs Vital signs: Vital Signs Temp 98.2 F 10/26/23 02:00 Pulse 77 10/26/23 02:00 Resp 17 10/26/23 02:00 BP 165/68 10/26/23 02:00 Pulse Ox 93 L 10/26/23 02:00 FiO2 Intake & Output 10/25/23 10/26/23 10/26/23 18:59 06:59 18:59 Output Total 300 400 Balance -300 -400 Output: Urine 300 400 Other: Voiding Method External Catheter External Catheter # Voids 1 # Bowel Movements 1 - Exam This is a pleasant 87-year-old female in no acute distress. She is alert and oriented 3. Exam of the lower extremities reveals pain with motion of the right hip. She has minimal pain with logroll. Full foot and ankle motion without difficulty or pain. Neurovascular status to the lower extremities is intact. - Labs CBC & Chem 7: 10/24/23 04:51 10/24/23 04:51 Labs: Microbiology - Last 24 Hours (Table) 10/23/23 23:32 Gram Stain - Preliminary Sputum Sputum Culture - Preliminary Gram Neg Bacilli Assessment and Plan (1) Pubic ramus fracture Current Visit: Yes Status: Acute Priority: Medium Code(s): S32.599A - OTH FRACTURE OF UNSP PUBIS, INIT ENCNTR FOR CLOSED FRACTURE SNOMED Code(s): 10314372 (2) Status post fall Current Visit: Yes Status: Acute Code(s): Z91.81 - HISTORY OF FALLING SNOMED Code(s): 505225561 Plan: The clinical and x-ray findings are discussed with the patient. She may be discharged to inpatient rehab when cleared medically and placement is arranged.
[2023-10-26] MEDS: PANTOPRAZOLE 40 MG TABLET PO SCH (08:39)
[2023-10-26] MEDS: amLODIPine 5 MG TAB PO SCH (08:39)
[2023-10-26] MEDS: DOCUSATE 100 MG CAP PO SCH (08:39)
[2023-10-26] MEDS: LACTULOSE 20 GM/30 ML CUP PO SCH (08:39)
[2023-10-26] MEDS: ENOXAPARIN 40 MG/0.4 ML SYRINGE SQ SCH (08:39)
[2023-10-26] MEDS ORDERED: MEGESTROL 400 MG/10 ML CUP PO SCH (09:00)
[2023-10-26 09:37] VITALS: BP 166/64; PULSE 87; RESP 19; TEMP 97.5
--- NOTE | 2023-10-26 11:25 | P.PN ---
Subjective Progress Note Date: 10/26/23 Patricia Oh, is an 87-year-old female who presented to [facility] emergency room after sustaining a fall and complaining of hip pain. Patient states that she slipped and fell in the bathroom, she was unable to stand up, she denies any loss of consciousness, she denies any head injury, She was evaluated in the emergency room vital examination on presentation revealed a temperature of 97.9 pulse 75 respiration 16 blood pressure 127/57 pulse ox 95% on room air Laboratory data revealed a white blood count of 8.5 hemoglobin 12.3 platelet count 205 sodium 136 potassium 4.0 chloride 102 CO2 27 BUN 13 creatinine 0.8 Testing in the emergency room revealed pelvic x-ray revealed acute fracture of the right superior and inferior pubic ramus Patient was admitted to medical floor for further evaluation and treatment, orthopedic consultation was requested. Past medical history is significant for patient was recently admitted to [facility] with abdominal pain nausea vomiting and constipation, she also has a known history of hypertension and hyperlipidemia otherwise no significant past medical history. On 10/22/2023 patient was seen and examined on the medical floor she is alert and oriented 3 in no apparent distress she is complaining of cough and is complaining of right hip pain and complaining of constipation otherwise she denies any complaints. There is no fever or chills no headache or dizziness no chest pain no shortness of breath no nausea or vomiting no abdominal pain no diarrhea and no urinary symptoms. White blood count has increased from 9.8-15.4 since yesterday, chest x-ray revealed increased density in the right medial lung base that reflect developing infiltrate, patient has significant crackles on lung exam At this time patient will be started on IV antibiotic Zosyn, will check pro- calcitonin level, will check swallow evaluation to rule out aspiration. On 10/23/2023 patient is alert and oriented 3 currently resting in bed. Patient remains on IV Zosyn. White blood cell improving 11.2. Speech to evaluate swallow. Repeat 2 view chest x-ray ordered sputum culture ordered. Vital signs temp 98.2, heart rate 77, respiratory rate 18, blood pressure 104/55 with a pulse ox 93% on 2 L On 10/24/2023 patient was seen and examined on the medical floor she is alert and oriented 3 in no apparent distress, there is no fever or chills no headache or dizziness no chest pain no shortness of breath no cough no nausea or vomiting no abdominal pain no diarrhea and no urinary symptoms. Patient is still unable to stand and walk with help due to severe pain. We are awaiting insurance authorization for rehab admission. On 10/25/2023 patient is alert and oriented 3. Awaiting insurance authorization for discharge placement. Speech pathology notes reviewed no issues with swallowing continue regular diet with thin liquids. Patient will be DC'd on Augmentin for continued treatment of pneumonia. Patient also started on Megace. Patient denies chest pain or shortness of breath. Patient denies nausea vomiting or diarrhea. Patient denies any urinary burning or frequency On 10/26/2023 patient alert and oriented 3. Patient will likely be DC'd to rehab facility today. Patient's alert and oriented 3. Denies chest pain or s hortness of breath. Denies nausea vomiting or diarrhea. Denies any urinary burning or frequency current vital signs temp 98.2, heart 77, respiratory rate 17, blood pressure 121/67 pulse ox 93% on room air Objective - Vital Signs Vital signs: Vital Signs Temp 97.5 F L 10/26/23 07:37 Pulse 87 10/26/23 07:37 Resp 19 10/26/23 07:37 BP 166/64 10/26/23 07:37 Pulse Ox 91 L 10/26/23 07:37 FiO2 Intake & Output 10/25/23 10/26/23 10/26/23 18:59 06:59 18:59 Output Total 300 400 2 Balance -300 -400 -2 Output: Urine 300 400 Stool 2 Other: Voiding Method External Catheter External Catheter External Catheter # Voids 1 # Bowel Movements 1 - Exam In general patient is alert and oriented x 3 in no distress HEENT head normocephalic and atraumatic Neck is supple no JVD no goiter no lymphadenopathy no carotid bruit Chest examination reveals bilateral crackles no wheezing Cardiac exam reveals regular heart sounds S1 and S2 no gallops no murmurs Abdomen is soft nontender no organomegaly with normal bowel sounds Extremity exam reveals no edema no cyanosis or clubbing Neurological examination reveals no gross focal deficits - Labs CBC & Chem 7: 10/24/23 04:51 10/24/23 04:51 Labs: Microbiology - Last 24 Hours (Table) 10/23/23 23:32 Gram Stain - Final Sputum Sputum Culture - Final Escherichia coli Assessment and Plan Plan: Fall with pubic ramus fracture, orthopedic consultation requested Underlying history of hypertension Underlying history of hyperlipidemia Recent admission with gastroenteritis nausea vomiting and constipation Right lower lobe infiltrate with cough leukocytosis and significant crackles on lung exam suggestive of right lower lobe pneumonia, possibly related to aspira tion, will start IV Zosyn, check pro-calcitonin, and check swallow evaluation, a repeat chest x-ray PA and lateral in a.m. tomorrow. Speech eval completed recognitions regular diet and liquids At this time patient is admitted to medical floor Home medications reviewed and reordered For DVT prophylaxis subcu [facility] Patient to be DC'd to rehab facility in [place] Patient will be DC'd on Augmentin for 5 more days
--- NOTE | 2023-10-26 12:56 | P.PN ---
Progress Note - Text Progress Note Date: 10/26/23 This is an 87-year-old female who presented to the emergency department on 10/20/2023 after falling when she got up to the bathroom. She states that she lost balance with her walker and landed directly on her buttock. She is complaining of pain around the right hip and pelvis. 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 Her surgery was not performed around here. She denies head injury or loss of consciousness in this recent fall. She has no other complaints aside from the right hip and buttock pain. The patient is admitted to our service for further evaluation and care. The patient has continued to have pain to the right groin and buttock with attempts for ambulation. It is recommended she go to inpatient rehab at discharge. She may be discharged to inpatient rehab today if cleared medically. Please see med rec for accurate list of home medications. She is to continue toe-touch weightbearing only to the right lower extremity. 10/26/2023: No changes on exam today. She may be discharged to inpatient rehabilitation today.
== END 2023-10-26 14:46 ==
LOC: EC 01:00 → INTOOBSV 05:53 → 4SSUR 05:53 → UNDODISIN 10-26 14:46
PROVIDERS: ADMIT Orthopaedic Surgery; ATTEND Orthopaedic Surgery
DX: S32.591A Other specified fracture of right pubis, initial encounter for closed fracture (principal); R91.8 Other nonspecific abnormal finding of lung field; R05.9 Cough, unspecified; D72.829 Elevated white blood cell count, unspecified; K59.00 Constipation, unspecified; R11.2 Nausea with vomiting, unspecified; K21.9 Gastro-esophageal reflux disease without esophagitis; E78.5 Hyperlipidemia, unspecified; I10 Essential (primary) hypertension; R32 Unspecified urinary incontinence; W01.0XXA Fall on same level from slipping, tripping and stumbling without subsequent striking against object, initial encounter; Y92.002 Bathroom of unspecified non-institutional (private) residence as the place of occurrence of the external cause; Z79.899 Other long term (current) drug therapy; Z88.6 Allergy status to analgesic agent; Z85.118 Personal history of other malignant neoplasm of bronchus and lung; Z92.3 Personal history of irradiation; Z86.11 Personal history of tuberculosis; Z96.641 Presence of right artificial hip joint; Z90.49 Acquired absence of other specified parts of digestive tract; Z82.49 Family history of ischemic heart disease and other diseases of the circulatory system
CPT/HCPCS: 96376 ×6; 96361 ×4; 96365; 96366 ×5; 96372 ×7; 96375 ×2; 99285; 94760 ×2; 93005; 97110; 97530 ×5; 97162; 97166; 92610; 80053 ×5; 85025 ×5; 87070; 87205; 87077; 87186; 84145; 72100; 73502; 71045; 71046; 74019; 72192; 72125; 70450; G0378 ×7; J2543 ×5; J2270 ×3; J2405 ×4; J1650 ×7; S0179; 96374

== ENCOUNTER 2023-11-15 21:09 | Inpatient (IN) | payer MEDICARE, OTHER ==
[2023-11-15] MEDS ORDERED: ONDANSETRON 4 MG/2 ML VIAL IVP STA (21:51)
[2023-11-15] MEDS ORDERED: SODIUM CHLORIDE 0.9% 1,000 ML IV STA (21:51)
[2023-11-15] MEDS ORDERED: PANTOPRAZOLE 40 MG/10 ML VIAL IVP STA (21:52)
--- NOTE | 2023-11-15 22:18 | ED ---
General Adult HPI - General Chief complaint: Nausea/Vomiting/Diarrhea Stated complaint: N/V, weakness Time Seen by Provider: 11/15/23 21:13 Source: patient, EMS, RN notes reviewed, old records reviewed Mode of arrival: EMS - History of Present Illness Initial comments: Patient is an 87-year-old female presents emergency Department complaining of nausea, vomiting, lack of appetite, weakness for the last 3-4 days. Presents from her snf the [facility]. States symptoms have been ongoing for multiple days. Currently denies any nausea. Currently denies any abdominal pain or chest pain. Denies any shortness of breath. This is a history of multiple abdominal surgeries. Denies any known sick contacts. Denies any known fevers. Nurses mild cough. His no other acute complaints this time. Since her further evaluation at this time. States she has been having less bowel movements which I also not eating. Last known bowel movement was 2 days ago. States she is passing gas as well. Endorses nausea but no recent emesis. - Related Data Home Medications Medication Instructions Recorded Confirmed Simvastatin [Zocor] 20 mg PO HS 11/03/20 10/20/23 Omeprazole 20 mg PO DAILY 08/18/22 10/20/23 amLODIPine [Norvasc] 5 mg PO DAILY 09/02/23 10/20/23 Previous Rx's Medication Instructions Recorded Docusate [Colace] 100 mg PO BID 30 Days #60 cap 10/16/23 Lactulose 20 gm PO DAILY PRN 7 Days #210 ml 10/16/23 Ondansetron Odt [Zofran ODT] 4 mg PO Q8HR PRN #10 tab 10/18/23 traMADol HCl [Ultram] 50 mg PO Q6HR PRN #28 tab 10/24/23 Amoxic-Pot Clav 500-125 mg 1 tab PO Q12HR 5 Days #10 tab 10/25/23 [Augmentin 500-125 mg] Megestrol [Megace] 400 mg PO DAILY ml 10/25/23 Allergies Allergy/AdvReac Type Severity Reaction Status Date / Time aspirin AdvReac Nausea & Verified 10/20/23 11:42 Vomiting Review of Systems ROS Statement: Those systems with pertinent positive or pertinent negative responses have been documented in the HPI. Review of Systems: CONST: Endorses weakness EYES: Denies blurry vision ENT: Denies nasal congestion C/V: Denies Chest pain RESP: Denies shortness of breath GI: Denies abdominal pain : Denies dysuria SKIN: Denies rash. MSK: Denies joint pain. NEURO: Denies headache ROS Other: All systems not noted in ROS Statement are negative. 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22, was in a sanatorium for 9 months History of Any Multi-Drug Resistant Organisms: None Reported Past Surgical History: Cholecystectomy, Tonsillectomy Additional Past Surgical History / Comment(s): stomach ulcer repair about 25 years ago, was on life support and a feeding tube, has midline repair scar; also thyroid tumor, rt hip replacement - Past Anesthesia/Blood Transfusion Reactions: No Reported Reaction Past Psychological History: No Psychological Hx Reported Smoking Status: Former smoker Past Alcohol Use History: None Reported Past Drug Use History: None Reported - Past Family History Family Family Medical History: Coronary Artery Disease (CAD) General Exam - General Exam Comments Initial Comments: General: Appears in no acute distress. HEAD: Normal with no signs of head trauma. EYES: PERRLA, EOMI, conjunctiva normal, no discharge. ENT: Hearing grossly intact, normal oropharynx. Dry mucous membranes. RESPIRATORY: Clear breath sounds bilaterally. No wheezes, rales, or rhonchi. C/V: Regular rate and rhythm. S1 and S2 auscultated, no edema, peripheral pulses 2+ and intact throughout ABD: Abd is soft, nontender, nondistended EXT: Normal range of motion, no obvious deformity SKIN: No rashes or lesions observed on exposed skin. NEURO: Alert and oriented x 4. Cranial nerves II-XII intact. No focal sensory or strength deficits. Course Vital Signs 11/15/23 21:18 Temperature 98.1 F Pulse Rate 89 Respiratory 18 Rate Blood Pressure 124/73 O2 Sat by Pulse 93 L Oximetry Medical Decision Making - Medical Decision Making Was pt. sent in by a medical professional or institution (, PA, CRA, urgent care, hospital, or snf...) When possible be specific @ -Sent from the [facility] for further evaluation Did you speak to anyone other than the patient for history (EMS, parent, family, police, friend...)? What history was obtained from this source @ -No Did you review nursing and triage notes (agree or disagree)? Why? @ -I reviewed and agree with nursing and triage notes Were old charts reviewed (outside hosp., previous admission, EMS record, old EKG, old radiological studies, urgent care reports/EKG's, snf records)? Report findings @ -Old charts reviewed Differential Diagnosis (chest pain, altered mental status, abdominal pain women, abdominal pain men, vaginal bleeding, weakness, fever, dyspnea, syncope, headache, dizziness, GI bleed, back pain, seizure, CVA, palpatations, mental health, musculoskeletal)? @ -Differential Weakness: Hypoglycemia, shock, sepsis, hyponatremia, anemia, infection, NM, ETOH, adverse medicine reaction, overdose, stroke, this is not meant to be an all-inclusive list. EKG interpreted by me (3pts min.). @ -As above X-rays interpreted by me (1pt min.). @ -Patient's chest x-ray reveals a right-sided pleural effusion. Cannot definitively rule out infiltrate. CT interpreted by me (1pt min.). @ -None done U/S interpreted by me (1pt. min.). @ -None done What testing was considered but not performed or refused? (CT, X-rays, U/S, labs)? Why? @ -None What meds were considered but not given or refused? Why? @ -None Did you discuss the management of the patient with other professionals (professionals i.e. , PA, CRA, lab, RT, psych nurse, manager social services, [employer] ebs consultant, teacher, special assets officer, special education case manager)? Give summary @ - I spoke with the admitting physician, Dr. Fournier who accepted the patient. Was smoking cessation discussed for >3mins.? @ -No Was critical care preformed (if so, how long)? @ -No Were there social determinants of health that impacted care today? How? (Homelessness, low income, unemployed, alcoholism, drug addiction, transportation, low edu. Level, literacy, decrease access to med. care, penitentiary, rehab)? @ -No Was there de-escalation of care discussed even if they declined (Discuss DNR or withdrawal of care, Hospice)? DNR status @ -Documentation provided from the nursing facility shows that the patient is DO NOT RESUSCITATE. This was confirmed with the patient. What co-morbidities impacted this encounter? (DM, HTN, Smoking, COPD, CAD, Cancer, CVA, ARF, Chemo, Hep., AIDS, mental health diagnosis, sleep apnea, mor bid obesity)? @ -None Was patient admitted / discharged? Hospital course, mention meds given and route, prescriptions, significant lab abnormalities, going to OR and other pertinent info. @ -Based on the patient's presentation and physical exam, presents with weakness, nausea, vomiting, occasional cough over the last few days regarding nursing facility. No acute complaints at this time. States she feels dehydrated. Exam remarkable for findings of dehydration. Vital signs within acceptable limits. We'll obtain broad workup. She was in agreement this plan. She'll receive IV fluids, antiemetics, Protonix. Patient's laboratory studies are remarkable for a mild leukocytosis of 12. Patient has an elevated BNP of 4300. Patient is Covid positive. EKG shows no signs of acute ischemia. Chest x-ray shows a right-sided pleural effusion. I discussed with the patient, she will be admitted at this time. She'll be empirically given doses of antibiotics for possible pneumonia. Patient in agreement this plan. I'll also provide her with a dose of Lasix for the pleural effusion. Pulmonology consulted. I spoke with the admitting physician, Dr. Fournier who accepted the patient. Undiagnosed new problem with uncertain prognosis? @ -No Drug Therapy requiring intensive monitoring for toxicity (Heparin, Nitro, Insulin, Cardizem)? @ -No Were any procedures done? @ -No Diagnosis/symptom? @ -Weakness, COVID-19 infection, pleural effusion Acute, or Chronic, or Acute on Chronic? @ -Acute Uncomplicated (without systemic symptoms) or Complicated (systemic symptoms)? @ -Complicated Side effects of treatment? @ -none Exacerbation, Progression, or Severe Exacerbation] @ -no Poses a threat to life or bodily function? @ -yes - Lab Data Result diagrams: 11/15/23 22:05 11/15/23 22:05 Lab Results 11/15/23 11/15/23 11/15/23 Range/Units 22:05 22:05 22:05 WBC 12.7 H (3.8-10.6) k/uL RBC 4.44 (3.80-5.40) m/uL Hgb 12.4 (11.4-16.0) gm/dL Hct 40.0 (34.0-46.0) % MCV 90.0 (80.0-100.0) fL MCH 27.9 (25.0-35.0) pg MCHC 31.0 (31.0-37.0) g/dL RDW 14.2 (11.5-15.5) % Plt Count 572 H D (150-450) k/uL MPV 7.8 Neutrophils % 74 % Lymphocytes % 20 % Monocytes % 3 % Eosinophils % 2 % Basophils % 1 % Neutrophils # 9.3 H (1.3-7.7) k/uL Lymphocytes # 2.5 (1.0-4.8) k/uL Monocytes # 0.4 (0-1.0) k/uL Eosinophils # 0.2 (0-0.7) k/uL Basophils # 0.1 (0-0.2) k/uL Hypochromasia Slight PT 10.4 (10.0-12.5) sec INR 0.9 (<1.2) APTT 25.6 (22.0-30.0) sec Sodium 137 (137-145) mmol/L Potassium 4.8 (3.5-5.1) mmol/L Chloride 105 (98-107) mmol/L Carbon Dioxide 18 L (22-30) mmol/L Anion Gap 14 mmol/L BUN 44 H (7-17) mg/dL Creatinine 1.00 (0.52-1.04) mg/dL Est GFR (CKD-EPI)AfAm 60 (>60 ml/min/1.73 sqM) Est GFR (CKD-EPI)NonAf 52 (>60 ml/min/1.73 sqM) Glucose 94 (74-99) mg/dL Plasma Lactic Acid Sajan (0.7-2.0) mmol/L Calcium 8.9 (8.4-10.2) mg/dL Magnesium 1.9 (1.6-2.3) mg/dL Total Bilirubin 0.4 (0.2-1.3) mg/dL AST 23 (14-36) U/L ALT 15 (4-34) U/L Alkaline Phosphatase 198 H (38-126) U/L NT-Pro-B Natriuret Pep pg/mL Total Protein 6.0 L (6.3-8.2) g/dL Albumin 2.9 L (3.5-5.0) g/dL Influenza Type A (PCR) (Not Detectd) Influenza Type B (PCR) (Not Detectd) RSV (PCR) (Not Detectd) SARS-CoV-2 (PCR) (Not Detectd) 11/15/23 11/15/23 11/15/23 Range/Units 22:05 22:05 22:05 WBC (3.8-10.6) k/uL RBC (3.80-5.40) m/uL Hgb (11.4-16.0) gm/dL Hct (34.0-46.0) % MCV (80.0-100.0) fL MCH (25.0-35.0) pg MCHC (31.0-37.0) g/dL RDW (11.5-15.5) % Plt Count (150-450) k/uL MPV Neutrophils % % Lymphocytes % % Monocytes % % Eosinophils % % Basophils % % Neutrophils # (1.3-7.7) k/uL Lymphocytes # (1.0-4.8) k/uL Monocytes # (0-1.0) k/uL Eosinophils # (0-0.7) k/uL Basophils # (0-0.2) k/uL Hypochromasia PT (10.0-12.5) sec INR (<1.2) APTT (22.0-30.0) sec Sodium (137-145) mmol/L Potassium (3.5-5.1) mmol/L Chloride (98-107) mmol/L Carbon Dioxide (22-30) mmol/L Anion Gap mmol/L BUN (7-17) mg/dL Creatinine (0.52-1.04) mg/dL Est GFR (CKD-EPI)AfAm (>60 ml/min/1.73 sqM) Est GFR (CKD-EPI)NonAf (>60 ml/min/1.73 sqM) Glucose (74-99) mg/dL Plasma Lactic Acid Sajan 0.9 (0.7-2.0) mmol/L Calcium (8.4-10.2) mg/dL Magnesium (1.6-2.3) mg/dL Total Bilirubin (0.2-1.3) mg/dL AST (14-36) U/L ALT (4-34) U/L Alkaline Phosphatase (38-126) U/L NT-Pro-B Natriuret Pep 4360 pg/mL Total Protein (6.3-8.2) g/dL Albumin (3.5-5.0) g/dL Influenza Type A (PCR) Not Detected (Not Detectd) Influenza Type B (PCR) Not Detected (Not Detectd) RSV (PCR) Not Detected (Not Detectd) SARS-CoV-2 (PCR) Detected A (Not Detectd) - EKG Data -: EKG Interpreted by Me EKG Comments: 12-lead Electrocardiogram Interpretation Note EKG was reviewed and interpreted by myself. 12-lead ECG performed at 2224 is interpreted by me as revealing normal sinus rhythm at a rate of 87 beats per minute. Incomplete right bundle branch block. [place] is normal. IN interval is 180 ms, QRS duration is 92 ms, QTc is 386 ms. There were no ST or T wave abnormalities to suggest myocardial ischemia or injury. R wave progression across the precordium was satisfactory. By my interpretation this EKG is non- diagnostic for acute ischemia. Disposition Clinical Impression: COVID-19, Weakness, Pleural effusion Disposition: ADMITTED IP TO THIS HOSP Condition: Stable Time of Disposition: 00:45
[2023-11-15 22:32] LABS: Basophils # (A) 0.1 k/uL (0-0.2); Basophils % (A) 1 %; Eosinophils # (A) 0.2 k/uL (0-0.7); Eosinophils % (A) 2 %; HGB 12.4 gm/dL (11.4-16.0); Hypochromasia Slight; Lymphocytes # (A) 2.5 k/uL (1.0-4.8); Lymphocytes % (A) 20 %; MCH 27.9 pg (25.0-35.0); Mean Platelet Volume 7.8; Monocytes # (A) 0.4 k/uL (0-1.0); Monocytes % (A) 3 %; Neutrophils # (A) 9.3 k/uL (1.3-7.7); Neutrophils % (A) 74 %; RBC 4.44 m/uL (3.80-5.40); RDW 14.2 % (11.5-15.5); WBC 12.7 k/uL (3.8-10.6)
[2023-11-15 22:41] LABS: ALT 15 U/L (4-34); AST 23 U/L (14-36); African American GFR (CKD) 60 (>60 ml/min/1.73 sqM); Albumin 2.9 g/dL (3.5-5.0); Alkaline Phosphatase 198 U/L (38-126); Anion Gap 14 mmol/L; Blood Urea Nitrogen 44 mg/dL (7-17); Calcium 8.9 mg/dL (8.4-10.2); Carbon Dioxide 18 mmol/L (22-30); Chloride 105 mmol/L (98-107); Glucose 94 mg/dL (74-99); Magnesium 1.9 mg/dL (1.6-2.3); Non-African American GFR(CKD) 52 (>60 ml/min/1.73 sqM); Potassium 4.8 mmol/L (3.5-5.1); Sodium 137 mmol/L (137-145); Total Bilirubin 0.4 mg/dL (0.2-1.3)
[2023-11-15 22:43] LABS: INR 0.9 (<1.2); Partial Thromboplastin Time 25.6 sec (22.0-30.0); Prothrombin Time 10.4 sec (10.0-12.5)
[2023-11-15 23:40] LABS: Platelet Count 572 k/uL (150-450)
[2023-11-16] MEDS ORDERED: NALOXONE 0.4 MG/ML 1 ML VIAL IV PRN (01:00)
[2023-11-16] MEDS ORDERED: ACETAMINOPHEN TAB 325 MG TAB PO PRN (01:00)
[2023-11-16] MEDS ORDERED: AZITHROMYCIN 500 MG in SODIUM CHLORIDE 0.9% 250 ML IVPB STA (01:01)
--- NOTE | 2023-11-16 01:58 | XR ---
EXAM: XR Chest, 2 Views CLINICAL HISTORY: ITS.REASON XR Reason: Weakness TECHNIQUE: Frontal and lateral views of the chest. COMPARISON: CXR 10/23/2023. FINDINGS: Lungs: Moderate right pleural effusion. Moderate pulmonary edema. Cardiomegaly. Findings are consistent with CHF. No pneumothorax. Heart: Cardiomegaly. Mediastinum: Unremarkable. Normal mediastinal contour. Bones/joints: Unremarkable. No acute fracture. IMPRESSION: Moderate right pleural effusion. Moderate pulmonary edema. Cardiomegaly. Findings are consistent with CHF.
[2023-11-16] MEDS: HEPARIN SODIUM,PORCINE 5,000 UNIT/ML 1 ML VIAL SQ SCH ×2 (08:11→20:07)
[2023-11-16] MEDS: FUROSEMIDE 10 MG/ML 4 ML VIAL IV SCH (08:11)
--- NOTE | 2023-11-16 09:27 | US ---
EXAMINATION TYPE: US chest DATE OF EXAM: 11/16/2023 COMPARISON: 11/16/23 CLINICAL INDICATION: Female, 87 years old with history of Pleural effusions R>L; Right pleural effusi on TECHNIQUE: Targeted ultrasound of the posterior lower bilateral hemithoraces EXAM MEASUREMENTS: Right Pleural Effusion pocket size: 3.8 cm Right skin surface to fluid distance: 1.4 cm Left Pleural Effusion pocket size: 0 cm Right side marked for possible thoracentesis outside the dept. Pulmonologists are able to review the images in the patient?s EMR. exam limited by patient inability to sit up independently IMPRESSIONS: As above
[2023-11-16] MEDS ORDERED: LACTULOSE 20 GM/30 ML CUP PO PRN (10:18)
[2023-11-16] MEDS ORDERED: guaiFENesin SYRUP 100MG/5ML 200 MG/10 ML CUP PO PRN (10:18)
[2023-11-16 10:27] LABS: Appearance,Urine Clear (Clear); Bilirubin,Urine Negative (Negative); Blood,Urine Negative (Negative); Color,Urine Light Yellow; Glucose,Urine (UA) Negative (Negative); Ketones,Urine Negative (Negative); Leukocyte Esterase,Urine Negative (Negative); Nitrite,Urine Negative (Negative); Protein,Urine Negative (Negative); Specific Gravity,Urine 1.018 (1.001-1.035); Urobilinogen,Urine <2.0 mg/dL (<2.0)
[2023-11-16] MEDS: amLODIPine 5 MG TAB PO SCH (11:45)
[2023-11-16] MEDS: ONDANSETRON 4 MG TAB PO SCH ×2 (11:45→20:05)
[2023-11-16] MEDS: traMADol 50 MG TAB PO SCH ×3 (11:45→20:47)
--- NOTE | 2023-11-16 12:10 | P.CNPUL ---
History of Present Illness Consult date: 11/16/23 Requesting physician: Yanet Fournier Reason for consult: hypoxemia, pleural effusion, abnormal CXR/CT Chief complaint: Nausea, vomiting, weakness History of present illness: This is a 87-year-old female patient with a history of lung cancer and previous radiation therapy, hypertension, hyperlipidemia, gastric ulcer status post repair previous feeding tube, tuberculosis at the age of 22 and was i nstitutionalized for 9 months. She was brought here to the emergency room last evening for a 3-4 day history of poor appetite, nausea vomiting and weakness. She is residing in [facility]. Chest x-ray revealed moderate right pleural effusion. Cardiomegaly. Moderate pulmonary edema. No pneumothorax. White count 12.7. Hemoglobin 12.4. Platelets 572. Sodium 137. Potassium 4.8. Bicarb 18. BUN 44. Creatinine 1.0. AST 23. ALT 15. ProBNP 4360. Urinalysis clear. She did test positive for COVID-19 infection. He is seen today in consultation in the emergency department. She is sitting up in bed. She is a poor historian. Maintaining O2 saturations in the 90s on 2 L/m per n michelle cannula. She's afebrile. Hemodynamically stable. Ultrasound of the chest was ordered and there is a small right pleural effusion of 3.8 cm. No significant fluid on the left. No plans for thoracentesis. His been initiated on bronchodilators. Antibiotics in the form of ceftriaxone. Vitamin supplements. She is on Lasix 40 mg IV daily. No urine output recorded thus far. 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22, was in a sanatorium for 9 months History of Any Multi-Drug Resistant Organisms: None Reported Past Surgical History: Cholecystectomy, Tonsillectomy Additional Past Surgical History / Comment(s): stomach ulcer repair about 25 years ago, was on life support and a feeding tube, has midline repair scar; also thyroid tumor, rt hip replacement - Past Anesthesia/Blood Transfusion Reactions: No Reported Reaction Past Psychological History: No Psychological Hx Reported Smoking Status: Former smoker Past Alcohol Use History: None Reported Past Drug Use History: None Reported - Past Family History Family Family Medical History: Coronary Artery Disease (CAD) Medications and Allergies Home Medications Medication Instructions Recorded Confirmed Type Simvastatin [Zocor] 20 mg PO HS 11/03/20 11/16/23 History Omeprazole 20 mg PO BID 08/18/22 11/16/23 History amLODIPine [Norvasc] 5 mg PO DAILY 09/02/23 11/16/23 History Docusate [Colace] 100 mg PO BID 30 Days #60 cap 10/16/23 11/16/23 Rx Lactulose 20 gm PO DAILY PRN 7 Days #210 ml 10/16/23 11/16/23 Rx Acetaminophen [Tylenol 8 Hour] 650 mg PO Q8H PRN 11/16/23 11/16/23 History Acetaminophen [Tylenol 8 Hour] 650 mg PO TID 11/16/23 11/16/23 History Artificial Tears-Hypromellose 1 drops BOTH EYES BID 11/16/23 11/16/23 History [Artificial Tear Drops] Ipratropium-Albuterol Nebulize 3 ml INHALATION RT-TID 11/16/23 11/16/23 History [Duoneb 0.5 mg-3 mg/3 ml Soln] Mirtazapine 7.5 mg PO HS 11/16/23 11/16/23 History Ondansetron [Zofran] 4 mg PO BID 11/16/23 11/16/23 History guaiFENesin SYRUP 100MG/5ML 200 mg PO Q4H PRN 11/16/23 11/16/23 History [Robitussin] traMADol HCl [Ultram] 50 mg PO Q6HR 11/16/23 11/16/23 History Allergies Allergy/AdvReac Type Severity Reaction Status Date / Time aspirin AdvReac Nausea & Verified 11/16/23 08:00 Vomiting Physical Exam Vitals: Vital Signs Temp Pulse Resp BP Pulse Ox 11/16/23 11:52 87 16 136/59 99 11/16/23 11:00 99 20 136/50 99 11/16/23 10:00 100 20 156/70 95 11/16/23 09:31 90 18 133/65 11/16/23 08:00 82 20 114/85 92 L 11/16/23 07:14 85 100/83 95 11/16/23 07:00 20 11/16/23 06:00 90 15 113/61 11/16/23 05:00 96 15 121/65 11/16/23 04:00 88 16 120/56 11/16/23 03:00 98 14 123/57 11/16/23 02:19 93 16 124/73 11/15/23 21:18 98.1 F 89 18 124/73 93 L Intake and Output 11/15/23 11/16/23 11/16/23 22:59 06:59 14:59 Other: Weight 40.823 kg GENERAL EXAM: Alert, doesn't 87-year-old female, poor historian, on room air, comfortable in no apparent distress. HEAD: Normocephalic. EYES: Normal reaction of pupils, equal size. NOSE: Clear with pink turbinates. THROAT: No erythema or exudates. NECK: No masses, no JVD. CHEST: No chest wall deformity. LUNGS: Equal air entry with basilar crackles right greater than left. CVS: S1 and S2 normal with no audible murmur, regular rhythm. ABDOMEN: No hepatosplenomegaly, normal bowel sounds, no guarding or rigidity. SPINE: No scoliosis or deformity SKIN: No rashes CENTRAL NERVOUS SYSTEM: No focal deficits, tone is normal in all 4 extremities. EXTREMITIES: There is no peripheral edema. No clubbing, no cyanosis. Peripheral pulses are intact. Results - Laboratory Findings CBC and BMP: 11/15/23 22:05 11/15/23 22:05 PT/INR, D-dimer PT 10.4 sec (10.0-12.5) 11/15/23 22:05 INR 0.9 (<1.2) 11/15/23 22:05 Abnormal lab findings: Abnormal Labs 11/15/23 11/15/23 11/15/23 22:05 22:05 22:05 WBC 12.7 H Plt Count 572 H D Neutrophils # 9.3 H Carbon Dioxide 18 L BUN 44 H Alkaline Phosphatase 198 H Total Protein 6.0 L Albumin 2.9 L SARS-CoV-2 (PCR) Detected A - Diagnostic Findings Chest x-ray: image reviewed Assessment and Plan Assessment: Generalized weakness with nausea and vomiting secondary to acute COVID-19 infection without evidence of CoVID pneumonia Acute on suspected chronic diastolic congestive heart failure, previous echocardiogram revealed preserved left ventricular systolic function 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 Benign hypertension Former smoker Hyperlipidemia History of tuberculosis at the age of 22, institutionalized for 9 months History of gastric ulcer repair and PEG tube placement with subsequent removal Poor overall functional performance based on the above-mentioned multiple [facility] resident N: The patient was seen and evaluated Chest x-ray, labs and medications reviewed Positive for COVID-19 infection No evidence of COVID-19 pneumonia Continue vitamin supplements Continue bronchodilators Continue antibiotics for now Check a pro-calcitonin Ultrasound of the chest did not reveal significant fluid for thoracentesis Continue IV diuretics DO NOT RESUSCITATE/DO NOT INTUBATE CODE STATUS We will continue to follow and make further recommendations based on her clinical status I have personally seen and examined the patient, performed the documentation and the assessment and plan as written. Number of minutes spent on the visit: 20.
[2023-11-16] MEDS: ALBUTEROL HFA INHALER INHALATION SCH ×2 (12:41→19:45)
--- NOTE | 2023-11-16 12:56 | P.CRDCN ---
History of Present Illness History of present illness: HISTORY OF PRESENT ILLNESS: This is a 87-year-old female with a past medical history significant for lung cancer with previous radiation, hypertension, hyperlipidemia, GERD, and former nicotine dependence. 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 We have been asked to see the patient in consultation for congestive heart failure. Patient examined at the bedside. Patient states she came to the hospital due to a fall. She is somewhat of a poor historian. According to ER records, the patient was brought to the hospital from her nursing facility secondary to nausea and vomiting, decreased appetite, and generalized weakness over the past few days. The patient was found to have Covid. She denies any chest pain or pressure. She currently denies shortness of breath. She is resting comfortably on the ER stretcher in no acute distress. * EKG reveals sinus mechanism with incomplete right bundle branch block. No signs of acute ischemia. * Chest xray moderate right pleural effusion. Moderate pulmonary edema. Cardiomegaly Findings are consistent with CHF. * Laboratory data: WBC 12.7. Hemoglobin 12.4. Platelet count 572. Sodium 137. Potassium 4.8. BUN 44. Creatinine 1.0. ProBNP 4360. Magnesium 1.9. * Current home cardiac medications include simvastatin 20 mg at night and amlodipine 5 mg daily * Most recent echocardiogram obtained in August 2022 revealed ejection fraction 55-60% with mild mitral regurgitation * Cardiac catheterization history: Unknown REVIEW OF SYSTEMS: At the time of my exam: CONSTITUTIONAL: Denies fever or chills. HEENT: Denies blurred vision, vision changes, or eye pain. Denies hemoptysis CARDIOVASCULAR: Denies chest pain. Denies orthopnea. Denies PND. Denies palpitations RESPIRATORY: Denies shortness of breath. GASTROINTESTINAL: Denies abdominal pain. Denies nausea or vomiting. HEMATOLOGIC: Denies bleeding disorders. GENITOURINARY: Denies any blood in urine. SKIN: Denies pruitis. Denies rash. PHYSICAL EXAM: VITAL SIGNS: Reviewed. GENERAL: Well-developed in no acute distress. HEENT: Head is normocephalic. Pupils are equal, round. Sclerae anicteric. Mucous membranes of the mouth are moist. Neck supple. No JVD or thyromegaly LUNGS: Respirations even and unlabored. Lungs diminished bilaterally, left greater than right HEART: Regular rate and rhythm. S1 and S2 heard. + systolic murmur ABDOMEN: Soft. Nondistended. Nontender. EXTREMITIES: Normal range of motion. No clubbing or cyanosis. Peripheral pulses intact. No lower extremity edema NEUROLOGIC: Awake and alert. Oriented x 3. ASSESSMENT: Nausea and vomiting, decreased appetite, and generalized weakness 4 days Leukocytosis Acute Covid 19 Right pleural effusion, not large enough for thoracentesis per pulmonary Possible mild acute heart failure with preserved EF, 55-60% in August 2022, not fluid overloaded on clinical examination Hypertension Hyperlipidemia History of GERD History of lung cancer with previous radiation PLAN: 2-D echo has been ordered. Await results Continue IV Lasix 40 mg daily Daily weights, accurate I&O, monitor kidney function Resume home cardiac medications Further recommendations pending patient's course Nurse practitioner note has been reviewed by physician. Signing provider agrees with the documented findings, assessment, and plan of care. 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22, was in a sanatorium for 9 months History of Any Multi-Drug Resistant Organisms: None Reported Past Surgical History: Cholecystectomy, Tonsillectomy Additional Past Surgical History / Comment(s): stomach ulcer repair about 25 years ago, was on life support and a feeding tube, has midline repair scar; also thyroid tumor, rt hip replacement - Past Anesthesia/Blood Transfusion Reactions: No Reported Reaction Past Psychological History: No Psychological Hx Reported Smoking Status: Former smoker Past Alcohol Use History: None Reported Past Drug Use History: None Reported - Past Family History Family Family Medical History: Coronary Artery Disease (CAD) Medications and Allergies Home Medications Medication Instructions Recorded Confirmed Type Simvastatin [Zocor] 20 mg PO HS 11/03/20 11/16/23 History Omeprazole 20 mg PO BID 08/18/22 11/16/23 History amLODIPine [Norvasc] 5 mg PO DAILY 09/02/23 11/16/23 History Docusate [Colace] 100 mg PO BID 30 Days #60 cap 10/16/23 11/16/23 Rx Lactulose 20 gm PO DAILY PRN 7 Days #210 ml 10/16/23 11/16/23 Rx Acetaminophen [Tylenol 8 Hour] 650 mg PO Q8H PRN 11/16/23 11/16/23 History Acetaminophen [Tylenol 8 Hour] 650 mg PO TID 11/16/23 11/16/23 History Artificial Tears-Hypromellose 1 drops BOTH EYES BID 11/16/23 11/16/23 History [Artificial Tear Drops] Ipratropium-Albuterol Nebulize 3 ml INHALATION RT-TID 11/16/23 11/16/23 History [Duoneb 0.5 mg-3 mg/3 ml Soln] Mirtazapine 7.5 mg PO HS 11/16/23 11/16/23 History Ondansetron [Zofran] 4 mg PO BID 11/16/23 11/16/23 History guaiFENesin SYRUP 100MG/5ML 200 mg PO Q4H PRN 11/16/23 11/16/23 History [Robitussin] traMADol HCl [Ultram] 50 mg PO Q6HR 11/16/23 11/16/23 History Allergies Allergy/AdvReac Type Severity Reaction Status Date / Time aspirin AdvReac Nausea & Verified 11/16/23 08:00 Vomiting Physical Exam Vitals: Vital Signs Temp Pulse Resp BP Pulse Ox 11/16/23 10:00 100 20 156/70 95 11/16/23 09:31 90 18 133/65 11/16/23 08:00 82 20 114/85 92 L 11/16/23 07:14 85 100/83 95 11/16/23 07:00 20 11/16/23 06:00 90 15 113/61 11/16/23 05:00 96 15 121/65 11/16/23 04:00 88 16 120/56 11/16/23 03:00 98 14 123/57 11/16/23 02:19 93 16 124/73 11/15/23 21:18 98.1 F 89 18 124/73 93 L Intake and Output 11/15/23 11/16/23 11/16/23 22:59 06:59 14:59 Other: Weight 40.823 kg Results 11/15/23 22:05 11/15/23 22:05 Cardiac Enzymes 11/15/23 Range/Units 22:05 AST 23 (14-36) U/L Coagulation 11/15/23 Range/Units 22:05 PT 10.4 (10.0-12.5) sec APTT 25.6 (22.0-30.0) sec CBC 11/15/23 Range/Units 22:05 WBC 12.7 H (3.8-10.6) k/uL RBC 4.44 (3.80-5.40) m/uL Hgb 12.4 (11.4-16.0) gm/dL Hct 40.0 (34.0-46.0) % Plt Count 572 H D (150-450) k/uL Comprehensive Metabolic Panel 11/15/23 Range/Units 22:05 Sodium 137 (137-145) mmol/L Potassium 4.8 (3.5-5.1) mmol/L Chloride 105 (98-107) mmol/L Carbon Dioxide 18 L (22-30) mmol/L BUN 44 H (7-17) mg/dL Creatinine 1.00 (0.52-1.04) mg/dL Glucose 94 (74-99) mg/dL Calcium 8.9 (8.4-10.2) mg/dL AST 23 (14-36) U/L ALT 15 (4-34) U/L Alkaline Phosphatase 198 H (38-126) U/L Total Protein 6.0 L (6.3-8.2) g/dL Albumin 2.9 L (3.5-5.0) g/dL Current Medications Generic Name Dose Route Start Last Admin Trade Name Freq PRN Reason Stop Dose Admin Acetaminophen 650 mg 11/16/23 01:00 Acetaminophen Tab 325 Mg Tab PO Q6HR PRN Mild Pain or Fever > 100.5 Albuterol/Ipratropium 3 ml 11/16/23 13:00 Ipratropium-Albuterol 3 Ml Neb INHALATION RT-TID [facility] Amlodipine Besylate 5 mg 11/16/23 11:00 Amlodipine 5 Mg Tab PO DAILY [facility] Artificial Tears 1 drops 11/16/23 21:00 Artificial Tears-Hypromellose Drops 15 Ml Btl BOTH EYES BID [facility] Ascorbic Acid 250 mg 11/17/23 09:00 Ascorbic Acid 500 Mg Tab PO DAILY [facility] Atorvastatin Calcium 10 mg 11/16/23 21:00 Atorvastatin 10 Mg Tab PO HS [facility] Cholecalciferol 10 mcg 11/17/23 09:00 Cholecalciferol 10 Mcg (400 Iu) Tablet PO DAILY [facility] Docusate Sodium 100 mg 11/16/23 21:00 Docusate 100 Mg Cap PO BID [facility] Furosemide 40 mg 11/16/23 09:00 11/16/23 08:11 Furosemide 10 Mg/Ml 4 Ml Vial IV 40 mg DAILY [facility] Administration Guaifenesin 200 mg 11/16/23 10:18 Guaifenesin Syrup 100mg/5ml 200 Mg/10 Ml Cup PO Q4H PRN Cough Heparin Sodium (Porcine) 5,000 unit 11/16/23 09:00 11/16/23 08:11 Heparin Sodium,Porcine 5,000 Unit/Ml 1 Ml Vial SQ 5,000 unit Q12HR [facility] Administration Ceftriaxone Sodium 2 gm/ 50 mls @ 100 mls/hr 11/16/23 04:00 11/16/23 07:06 Sodium Chloride IVPB 100 mls/hr Q24H [facility] Administration Protocol Lactulose 20 gm 11/16/23 10:18 Lactulose 20 Gm/30 Ml Cup PO DAILY PRN Constipation Mirtazapine 7.5 mg 11/16/23 21:00 Mirtazapine 15 Mg Tab PO HS [facility] Naloxone HCl 0.2 mg 11/16/23 01:00 Naloxone 0.4 Mg/Ml 1 Ml Vial IV Q2M PRN Opioid Reversal Ondansetron HCl 4 mg 11/16/23 11:00 Ondansetron 4 Mg Tab PO BID [facility] Pantoprazole Sodium 40 mg 11/16/23 21:00 Pantoprazole 40 Mg Tablet PO BID [facility] Tramadol HCl 50 mg 11/16/23 12:00 Tramadol 50 Mg Tab PO Q6HR [facility] Zinc Sulfate 220 mg 11/17/23 09:00 Zinc Sulfate 220 Mg Cap PO DAILY [facility] Intake and Output 11/15/23 11/16/23 11/16/23 22:59 06:59 14:59 Other: Weight 40.823 kg 11/15/23 22:05 11/15/23 22:05
[2023-11-16] MEDS ORDERED: IPRATROPIUM-ALBUTEROL 3 ML NEB INHALATION SCH (13:00)
--- NOTE | 2023-11-16 16:55 | P.HPIM ---
History of Present Illness H&P Date: 11/16/23 This is an 87-year-old female patient who presented with complaints of nausea vomiting and weakness over the past 3-4 days. Patient currently resides at [facility]. Upon arrival patient was found to be positive for COVID-19. Influenza and RSV negative. Patient's past medical history of recent fall with pubic ramus fracture, essential hypertension, hyperlipidemia and gastroenteritis. Chest x-ray completed showing moderate right pleural effusion moderate pulmonary edema findings are consistent with CHF. BNP level 4360. Patient started on IV Lasix. Patient started on vitamin C, zinc and vitamin D. At this time pulmonary service service is consulted for pleural effusion, infectious disease services and cardiology services consulted. Patient started on IV antibiotics. Repeat labs ordered. Patient denies chest pain or shortness of breath. Patient does complain of some nausea. 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22, was in a sanatorium for 9 months History of Any Multi-Drug Resistant Organisms: None Reported Past Surgical History: Cholecystectomy, Tonsillectomy Additional Past Surgical History / Comment(s): stomach ulcer repair about 25 years ago, was on life support and a feeding tube, has midline repair scar; also thyroid tumor, rt hip replacement - Past Anesthesia/Blood Transfusion Reactions: No Reported Reaction Past Psychological History: No Psychological Hx Reported Smoking Status: Former smoker Past Alcohol Use History: None Reported Past Drug Use History: None Reported - Past Family History Family Family Medical History: Coronary Artery Disease (CAD) Medications and Allergies Home Medications Medication Instructions Recorded Confirmed Type Simvastatin [Zocor] 20 mg PO HS 11/03/20 11/16/23 History Omeprazole 20 mg PO BID 08/18/22 11/16/23 History amLODIPine [Norvasc] 5 mg PO DAILY 09/02/23 11/16/23 History Docusate [Colace] 100 mg PO BID 30 Days #60 cap 10/16/23 11/16/23 Rx Lactulose 20 gm PO DAILY PRN 7 Days #210 ml 10/16/23 11/16/23 Rx Acetaminophen [Tylenol 8 Hour] 650 mg PO Q8H PRN 11/16/23 11/16/23 History Acetaminophen [Tylenol 8 Hour] 650 mg PO TID 11/16/23 11/16/23 History Artificial Tears-Hypromellose 1 drops BOTH EYES BID 11/16/23 11/16/23 History [Artificial Tear Drops] Ipratropium-Albuterol Nebulize 3 ml INHALATION RT-TID 11/16/23 11/16/23 History [Duoneb 0.5 mg-3 mg/3 ml Soln] Mirtazapine 7.5 mg PO HS 11/16/23 11/16/23 History Ondansetron [Zofran] 4 mg PO BID 11/16/23 11/16/23 History guaiFENesin SYRUP 100MG/5ML 200 mg PO Q4H PRN 11/16/23 11/16/23 History [Robitussin] traMADol HCl [Ultram] 50 mg PO Q6HR 11/16/23 11/16/23 History Allergies Allergy/AdvReac Type Severity Reaction Status Date / Time aspirin AdvReac Nausea & Verified 11/16/23 08:00 Vomiting Physical Exam Vitals: Vital Signs Temp Pulse Resp BP Pulse Ox 11/16/23 10:00 100 20 156/70 95 11/16/23 09:31 90 18 133/65 11/16/23 08:00 82 20 114/85 92 L 11/16/23 07:14 85 100/83 95 11/16/23 07:00 20 11/16/23 06:00 90 15 113/61 11/16/23 05:00 96 15 121/65 11/16/23 04:00 88 16 120/56 11/16/23 03:00 98 14 123/57 11/16/23 02:19 93 16 124/73 11/15/23 21:18 98.1 F 89 18 124/73 93 L Intake and Output 11/15/23 11/16/23 11/16/23 22:59 06:59 14:59 Other: Weight 40.823 kg Head normocephalic Neck supple Lungs clear to auscultation bilaterally no wheezing or crackles Heart regular rate and rhythm S1-S2, no rub or gallop Abdomen is soft nontender nondistended positive bowel sounds no hepatosplenomegaly Extremities no edema Neuro alert and orientated to 3 Results CBC & Chem 7: 11/15/23 22:05 11/15/23 22:05 Labs: Abnormal Lab Results - Last 24 Hours (Table) 11/15/23 11/15/23 11/15/23 Range/Units 22:05 22:05 22:05 WBC 12.7 H (3.8-10.6) k/uL Plt Count 572 H D (150-450) k/uL Neutrophils # 9.3 H (1.3-7.7) k/uL Carbon Dioxide 18 L (22-30) mmol/L BUN 44 H (7-17) mg/dL Alkaline Phosphatase 198 H (38-126) U/L Total Protein 6.0 L (6.3-8.2) g/dL Albumin 2.9 L (3.5-5.0) g/dL SARS-CoV-2 (PCR) Detected A (Not Detectd) Assessment and Plan Assessment: 1. nausea vomiting and weakness secondary to COVID-19 infection 2. Pleural effusion. Pulmonary service is consulted 3. Acute CHF exacerbation. Patient started on IV Lasix. 2-D echo ordered cardiology services 4. Recent fall with pubic ramus fracture 5. History of essential hypertension 6. History of hyperlipidemia 7. History of gastroenteritis DVT prophylaxis heparin. GI prophylaxis Protonix. Patient started on vitamin C zinc and vitamin D Patient seen on IV antibiotics Pulmonary service is consulted for pleural effusion 2-D echo ordered patient on IV Lasix Cardiology service is consulted Infectious disease service is consulted Repeat labs ordered Time with Patient: Greater than 30 (Greater than 60% of the total time spent in counseling and coordination of care)
[2023-11-16] MEDS: PANTOPRAZOLE 40 MG TABLET PO SCH (20:05)
[2023-11-16] MEDS: DOCUSATE 100 MG CAP PO SCH (20:05)
[2023-11-16] MEDS: MIRTAZAPINE 15 MG TAB PO SCH (20:05)
[2023-11-16] MEDS: ATORVASTATIN 10 MG TAB PO SCH (20:06)
[2023-11-16] MEDS: ARTIFICIAL TEARS-HYPROMELLOSE DROPS 15 ML BTL BOTH EYES SCH (20:45)
--- NOTE | 2023-11-16 22:23 | P.CONS ---
History of Present Illness - Reason for Consult Consult date: 11/16/23 COVID-19 Requesting physician: Yanet Fournier - Chief Complaint Nausea with vomiting decreased appetite and weakness x few days - History of Present Illness Patient is a 87-year-old female with a past medical history significant hypertension hyperlipidemia reflux left lung cancer with history of radiation patient was brought into the hospital last night for evaluation of nausea and vomiting decreased appetite increasing weakness in this patient's symptom has been getting worse over the last 3 to 4 days patient had denies any fever or any chills or any URI symptoms patient denies having any chest pain she is breathing comfortably on room air did have a mild hypoxia with O2 sats of 93% room air on presentation to the hospital patient did have occasional dry cough without sputum production denies any further vomiting no abdominal pain no diarrhea no urinary symptoms patient on presentation to the hospital was afebrile did have white count of 12.7 with a left shift creatinine 1.0 liver enzymes are normal urine has been negative she did tested positive for COVID patient did have a chest x-ray moderate right effusion moderate pulmonary edema cardiomegaly patient did have a chest ultrasound right pleural effusion pocket size 3.8 cm patient was admitted to the hospital started on ceftriaxone infectious disease was consulted for further management of antibiotic therapy Review of Systems Positive point and negatives has been mentioned in the HPI, complete review of systems was performed and all other systems are negative 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22, was in a sanatorium for 9 months History of Any Multi-Drug Resistant Organisms: None Reported Past Surgical History: Cholecystectomy, Tonsillectomy Additional Past Surgical History / Comment(s): stomach ulcer repair about 25 years ago, was on life support and a feeding tube, has midline repair scar; also thyroid tumor, rt hip replacement - Past Anesthesia/Blood Transfusion Reactions: No Reported Reaction Past Psychological History: No Psychological Hx Reported Smoking Status: Former smoker Past Alcohol Use History: None Reported Past Drug Use History: None Reported - Past Family History Family Family Medical History: Coronary Artery Disease (CAD) Medications and Allergies Home Medications Medication Instructions Recorded Confirmed Type Simvastatin [Zocor] 20 mg PO HS 11/03/20 11/16/23 History Omeprazole 20 mg PO BID 08/18/22 11/16/23 History Docusate [Colace] 100 mg PO BID 30 Days #60 cap 10/16/23 11/16/23 Rx Lactulose 20 gm PO DAILY PRN 7 Days #210 ml 10/16/23 11/16/23 Rx Acetaminophen [Tylenol 8 Hour] 650 mg PO Q8H PRN 11/16/23 11/16/23 History Acetaminophen [Tylenol 8 Hour] 650 mg PO TID 11/16/23 11/16/23 History Artificial Tears-Hypromellose 1 drops BOTH EYES BID 11/16/23 11/16/23 History [Artificial Tear Drops] Ipratropium-Albuterol Nebulize 3 ml INHALATION RT-TID 11/16/23 11/16/23 History [Duoneb 0.5 mg-3 mg/3 ml Soln] Mirtazapine 7.5 mg PO HS 11/16/23 11/16/23 History Ondansetron [Zofran] 4 mg PO BID 11/16/23 11/16/23 History guaiFENesin SYRUP 100MG/5ML 200 mg PO Q4H PRN 11/16/23 11/16/23 History [Robitussin] Apixaban [Eliquis] 2.5 mg PO BID tab 11/25/23 Rx Ascorbic Acid [Vitamin C] 250 mg PO DAILY tab 11/25/23 Rx Cholecalciferol [Vitamin D3 (10 10 mcg PO DAILY tab 11/25/23 Rx Mcg = 400 Iu)] Furosemide [Lasix] 40 mg PO DAILY tab 11/25/23 Rx Megestrol [Megace] 800 mg PO DAILY ml 11/25/23 Rx Metoprolol Succinate (ER) [Toprol 25 mg PO DAILY tab 11/25/23 Rx XL] Zinc Sulfate [Orazinc] 220 mg PO DAILY cap 11/25/23 Rx polyethylene glycoL 3350 [Miralax] 17 gm PO DAILY packet 11/25/23 Rx traMADol HCl [Ultram] 50 mg PO Q6HR PRN #4 tab 11/25/23 Rx Allergies Allergy/AdvReac Type Severity Reaction Status Date / Time aspirin AdvReac Nausea & Verified 11/16/23 08:00 Vomiting Physical Exam Vitals: Vital Signs Temp Pulse Resp BP Pulse Ox 11/16/23 10:00 100 20 156/70 95 11/16/23 09:31 90 18 133/65 11/16/23 08:00 82 20 114/85 92 L 11/16/23 07:14 85 100/83 95 11/16/23 07:00 20 11/16/23 06:00 90 15 113/61 11/16/23 05:00 96 15 121/65 11/16/23 04:00 88 16 120/56 11/16/23 03:00 98 14 123/57 11/16/23 02:19 93 16 124/73 11/15/23 21:18 98.1 F 89 18 124/73 93 L Intake and Output 11/15/23 11/16/23 11/16/23 22:59 06:59 14:59 Other: Weight 40.823 kg GENERAL DESCRIPTION: Elderly female lying in bed, no distress. No tachypnea or accessory muscle of respiration use. HEENT: Shows Pallor , no scleral icterus. Oral mucous membrane is dry. No pharyngeal erythema or thrush NECK: Trachea central, no thyromegaly. LUNGS: Unlabored breathing. Decreased breath sound at the base HEART: S1, S2, regular rate and rhythm. No loud murmur ABDOMEN: Soft, no tenderness , guarding or rigidity, no organomegaly EXTREMITIES: No edema of feet. SKIN: No rash, no masses palpable. NEUROLOGICAL: The patient is awake, alert, oriented x3, mood and affect normal. Results CBC & Chem 7: 11/22/23 07:07 11/22/23 07:07 Labs: Abnormal Lab Results - Last 24 Hours (Table) 11/15/23 11/15/23 11/15/23 Range/Units 22:05 22:05 22:05 WBC 12.7 H (3.8-10.6) k/uL Plt Count 572 H D (150-450) k/uL Neutrophils # 9.3 H (1.3-7.7) k/uL Carbon Dioxide 18 L (22-30) mmol/L BUN 44 H (7-17) mg/dL Alkaline Phosphatase 198 H (38-126) U/L Total Protein 6.0 L (6.3-8.2) g/dL Albumin 2.9 L (3.5-5.0) g/dL SARS-CoV-2 (PCR) Detected A (Not Detectd) Assessment and Plan (1) COVID-19 Status: Acute Code(s): U07.1 - COVID-19 SNOMED Code(s): 212414444 (2) Pneumonia Status: Acute Code(s): J18.9 - PNEUMONIA, UNSPECIFIED ORGANISM SNOMED Code(s): 327849949 Plan: 1patient presented to hospital with weakness nausea vomiting not feeling well symptoms are more likely multifactorial in this patient who did tested positive for COVID however no significant hypoxemia and treatment be mostly supportive 2-patient also have elevated white count chest x-ray with moderate right effusion and underlying atelectasis versus pneumonia need to rule out bacterial etiology 3-procalcitonin has been ordered we will try to obtain a sputum 4-continue patient on Rocephin 2 g daily while waiting for the workup to be completed along with zinc ascorbic acid heparin however there is no need for steroids or remdesivir 5-droplet isolation We will follow on clinical condition and cultures to further adjust medication if needed Thank you for this consultation we will follow the patient along with you Dictation was produced using [employer] dictation software. please excuse any grammatical, word or spelling errors. Time with Patient: Greater than 30
[2023-11-17] MEDS: traMADol 50 MG TAB PO SCH ×4 (05:32→23:16)
[2023-11-17] MEDS: amLODIPine 5 MG TAB PO SCH (07:22)
[2023-11-17] MEDS: PANTOPRAZOLE 40 MG TABLET PO SCH ×2 (07:29→19:53)
[2023-11-17] MEDS: ZINC SULFATE 220 MG CAP PO SCH (07:29)
[2023-11-17] MEDS: ASCORBIC ACID 500 MG TAB PO SCH (07:29)
[2023-11-17] MEDS: DOCUSATE 100 MG CAP PO SCH ×2 (07:29→19:53)
[2023-11-17] MEDS: ONDANSETRON 4 MG TAB PO SCH ×2 (07:29→19:53)
[2023-11-17] MEDS: HEPARIN SODIUM,PORCINE 5,000 UNIT/ML 1 ML VIAL SQ SCH (07:30)
[2023-11-17] MEDS: FUROSEMIDE 10 MG/ML 4 ML VIAL IV SCH (07:30)
[2023-11-17] MEDS: ARTIFICIAL TEARS-HYPROMELLOSE DROPS 15 ML BTL BOTH EYES SCH ×2 (07:30→19:53)
[2023-11-17] MEDS: CHOLECALCIFEROL 10 MCG (400 IU) TABLET PO SCH (07:31)
[2023-11-17] MEDS ORDERED: FUROSEMIDE 40 MG TAB PO SCH (09:00)
[2023-11-17] MEDS: APIXABAN 2.5 MG TABLET PO SCH ×2 (09:07→19:53)
[2023-11-17] MEDS: ALBUTEROL HFA INHALER INHALATION SCH ×3 (09:24→20:25)
--- NOTE | 2023-11-17 10:12 | P.PN ---
Subjective HISTORY OF PRESENT ILLNESS: This is a 87-year-old female with a past medical history significant for lung cancer with previous radiation, hypertension, hyperlipidemia, GERD, and former nicotine dependence. 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 We have been asked to see the patient in consultation for congestive heart failure. Patient examined at the bedside. Patient states she came to the hospital due to a fall. She is somewhat of a poor historian. According to ER records, the patient was brought to the hospital from her nursing facility secondary to nausea and vomiting, decreased appetite, and generalized weakness over the past few days. The patient was found to have Covid. She denies any chest pain or pressure. She currently denies shortness of breath. She is resting comfortably on the ER stretcher in no acute distress. * EKG reveals sinus mechanism with incomplete right bundle branch block. No signs of acute ischemia. * Chest xray moderate right pleural effusion. Moderate pulmonary edema. Cardiomegaly Findings are consistent with CHF. * Laboratory data: WBC 12.7. Hemoglobin 12.4. Platelet count 572. Sodium 137. Potassium 4.8. BUN 44. Creatinine 1.0. ProBNP 4360. Magnesium 1.9. * Current home cardiac medications include simvastatin 20 mg at night and amlodipine 5 mg daily * Most recent echocardiogram obtained in August 2022 revealed ejection fraction 55-60% with mild mitral regurgitation * Cardiac catheterization history: Unknown 11/17/2023 Patient examined this morning at the bedside. Patient currently denies chest pain or pressure. She denies shortness of breath. She remains on Lasix 40 mg IV daily. Patient went into atrial fibrillation overnight. She remains atrophic relation with controlled ventricular rate this morning. The patient does not have a history of atrial fibrillation. PHYSICAL EXAM: VITAL SIGNS: Reviewed. GENERAL: Well-developed in no acute distress. HEENT: Head is normocephalic. Pupils are equal, round. Sclerae anicteric. Mucous membranes of the mouth are moist. Neck supple. No JVD or thyromegaly LUNGS: Respirations even and unlabored. Lungs diminished bilaterally, left greater than right HEART: Irregular rate and rhythm. S1 and S2 heard. + systolic murmur ABDOMEN: Soft. Nondistended. Nontender. EXTREMITIES: Normal range of motion. No clubbing or cyanosis. Peripheral pulses intact. No lower extremity edema NEUROLOGIC: Awake and alert. Oriented x 3. ASSESSMENT: Nausea and vomiting, decreased appetite, and generalized weakness 4 days Leukocytosis Acute Covid 19 New-onset atrial fibrillation with controlled ventricular rate Right pleural effusion, not large enough for thoracentesis per pulmonary Possible mild acute heart failure with preserved EF, 55-60% in August 2022, not fluid overloaded on clinical examination Hypertension Hyperlipidemia History of GERD History of lung cancer with previous radiation PLAN: 2-D echo has been ordered. Await results Discontinue IV Lasix. Begin oral Lasix 40 mg daily Begin Eliquis 2.5 mg twice a day Continue telemetry monitoring Check TSH Patient is currently rate controlled. If she begins to have episodes of A. fib with RVR, we will add beta adriana therapy Further recommendations pending patient's course Nurse practitioner note has been reviewed by physician. Signing provider agrees with the documented findings, assessment, and plan of care. Objective - Vital Signs Vital signs: Vital Signs Temp 97.6 F 11/17/23 07:12 Pulse 73 11/17/23 07:12 Resp 18 11/17/23 07:12 BP 113/53 11/17/23 07:12 Pulse Ox 100 11/17/23 07:12 FiO2 Intake & Output 11/16/23 11/17/23 11/17/23 18:59 06:59 18:59 Output Total 1999 Balance -1999 Weight 40.823 kg Output: Urine 1999 Other: Voiding Method External Catheter - Labs CBC & Chem 7: 11/15/23 22:05 11/15/23 22:05 Labs: Abnormal Lab Results - Last 24 Hours (Table) 11/16/23 Range/Units 09:00 Procalcitonin 0.18 H (0.02-0.09) ng/mL
[2023-11-17 11:16] LABS: BUN/Creat Ratio 42.11 Ratio (12.00-20.00); Blood Urea Nitrogen 37.9 mg/dL (9.0-27.0); Calcium 8.9 mg/dL (8.7-10.3); Carbon Dioxide 19.7 mmol/L (21.6-31.8); Chloride 104 mmol/L (96-109); Glucose 67 mg/dL (70-110); Potassium 4.8 mmol/L (3.5-5.5); Sodium 140 mmol/L (135-145)
--- NOTE | 2023-11-17 12:00 | CA ---
Transthoracic Echo Report Name: Patricia Oh Age: 87 Gender: F : 1935 Exam Date: 11/16/2023 17:15 Exam Location: [place] [facility] Ht (in): 62 Wt (lb): 90 Ordering Physician: Yanet Fournier MD Attending/Referring Phys: Seasonal Tax Preparer Nina Douglass [facility] Procedure CPT: Indications: chf Cardiac Hx: Technical Quality: Fair Contrast 1: Total Dose (mL): Contrast 2: Total Dose (mL): MEASUREMENTS (Male / Female) Normal Values 2D ECHO LV Diastolic Diameter PLAX 3.2 cm 4.2 - 5.9 / 3.9 - 5.3 cm LV Systolic Diameter PLAX 2.1 cm IVS Diastolic Thickness 0.9 cm 0.6 - 1.0 / 0.6 - 0.9 cm LVPW Diastolic Thickness 0.9 cm 0.6 - 1.0 / 0.6 - 0.9 cm LV Relative Wall Thickness 0.6 DOPPLER AV Peak Velocity 179.9 cm/s AV Peak Gradient 12.9 mmHg AV Mean Velocity 104.0 cm/s AV Mean Gradient 5.4 mmHg AV Velocity Time Integral 28.8 cm LVOT Peak Velocity 149.7 cm/s LVOT Peak Gradient 9.0 mmHg LVOT Velocity Time Integral 25.1 cm Mitral E Point Velocity 65.3 cm/s Mitral A Point Velocity 125.2 cm/s Mitral E to A Ratio 0.5 MV Deceleration Time 270.1 ms LV E' Lateral Velocity 6.3 cm/s Mitral E to LV E' Lateral Ratio 10.3 LV E' Septal Velocity 5.7 cm/s Mitral E to LV E' Septal Ratio 11.5 TR Peak Velocity 311.8 cm/s TR Peak Gradient 38.9 mmHg Right Atrial Pressure 3.0 mmHg Pulmonary Artery Systolic Pressu 41.9 mmHg Right Ventricular Systolic Press 41.9 mmHg FINDINGS Left Ventricle Left ventricular wall thickness at upper limits of normal. Small left ventricular cavity. Normal left ventricular systolic function with no obvious regional wall motion abnormalities. Left ventricular ejection fraction is estimated at 55-60 %. Right Ventricle Mild pulmonary hypertension. Right Atrium Left Atrium Mitral Valve Mitral annular calcification. Mild mitral regurgitation. Aortic Valve Thickening of the aortic valve cusps. No aortic regurgitation.aortic valve sclerosis. Tricuspid Valve Structurally normal tricuspid valve. Mild tricuspid regurgitation. Pulmonic Valve Pericardium No pericardial effusion. Pleural effusion. Aorta CONCLUSIONS Limited study PT is COVID+ Normal left ventricle size and systolic function Mild mitral and tricuspid regurgitation with mild pulmonary hypertension Previewed by: Dr. Carmen Keita MD (Electronically Signed) Final Date: 17 November 2023 11:59
[2023-11-17 15:00] LABS: Basophils # (A) 0.08 X 10*3/uL (0.00-0.10); Basophils % (A) 0.8 %; Eosinophils # (A) 0.15 X 10*3/uL (0.04-0.35); Eosinophils % (A) 1.5 %; HCT 36.4 % (37.2-46.3); HGB 10.9 g/dL (12.0-15.0); Lymphocytes # (A) 2.84 X 10*3/uL (0.90-5.00); Lymphocytes % (A) 28.3 %; MCH 27.3 pg (27.0-32.0); MCHC 29.9 g/dL (32.0-37.0); Mean Platelet Volume 11.2 FL (9.5-12.2); Monocytes # (A) 0.69 X 10*3/uL (0.20-1.00); Monocytes % (A) 6.9 %; NRBC Per 100 WBC 0 X 10*3/uL (0.00-0.01); Neutrophils # (A) 6.19 X 10*3/uL (1.80-7.70); Neutrophils % (A) 61.6 %; Platelet Count 498 X 10*3/uL (140-440); RDW 14.9 % (11.5-14.5); WBC 10.04 X 10*3/uL (4.50-10.00)
--- NOTE | 2023-11-17 15:12 | P.PN ---
Subjective Progress Note Date: 11/17/23 Principal diagnosis: Reason for follow-up is covid19 , leukocytosis Patient is a 87-year-old female with a past medical history significant hypertension hyperlipidemia reflux left lung cancer with history of radiation patient was brought into the hospital for evaluation of nausea and vomiting decreased appetite increasing weakness, patient tested positive for COVID chest x-ray with moderate effusion and pulmonary edema white count mildly elevated. On today's evaluation that is 11/17/2023 the patient denies having any fever or any chills patient is breathing comfortably on 3 L nasal cannula oxygen patient denies having any chest pain denies any worsening cough or sputum production abdominal pain or diarrhea. The patient white count is now 10.04, creatinine 0.9 procalcitonin was 0.18, blood cultures currently pending Objective - Vital Signs Vital signs: Vital Signs Temp 97.6 F 11/17/23 07:12 Pulse 73 11/17/23 07:12 Resp 18 11/17/23 07:12 BP 113/53 11/17/23 07:12 Pulse Ox 100 11/17/23 07:12 FiO2 Intake & Output 11/16/23 11/17/23 11/17/23 18:59 06:59 18:59 Output Total 1999 Balance -1999 Weight 40.823 kg 40.823 kg Output: Urine 1999 Other: Voiding Method External Catheter - Exam GENERAL DESCRIPTION: An elderly female lying in bed in no distress RESPIRATORY SYSTEM: Unlabored breathing , decreased breath sound at the base HEART: S1 S2 regular rate and rhythm , ABDOMEN: Soft , no tenderness EXTREMITIES: No edema feet - Labs CBC & Chem 7: 11/17/23 07:16 11/17/23 07:16 Labs: Abnormal Lab Results - Last 24 Hours (Table) 11/16/23 11/17/23 Range/Units 09:00 07:16 Carbon Dioxide 19.7 L (21.6-31.8) mmol/L Anion Gap 16.30 H (4.00-12.00) mmol/L BUN 37.9 H (9.0-27.0) mg/dL BUN/Creatinine Ratio 42.11 H (12.00-20.00) Ratio Glucose 67 L (70-110) mg/dL Procalcitonin 0.18 H (0.02-0.09) ng/mL Microbiology - Last 24 Hours (Table) 11/16/23 02:16 Blood Culture - Preliminary Blood 11/16/23 01:58 Blood Culture - Preliminary Blood Assessment and Plan (1) Leukocytosis Current Visit: Yes Status: Acute Code(s): D72.829 - ELEVATED WHITE BLOOD CELL COUNT, UNSPECIFIED SNOMED Code(s): 909124251 (2) COVID-19 Current Visit: Yes Status: Acute Code(s): U07.1 - COVID-19 SNOMED Code(s): 251402824 (3) Pleural effusion Current Visit: Yes Status: Acute Code(s): J90 - PLEURAL EFFUSION, NOT ELSEWHERE CLASSIFIED SNOMED Code(s): 98461920 Plan: 1patient presented to hospital with weakness nausea vomiting not feeling well symptoms are more likely multifactorial in this patient who did tested positive for COVID however no significant hypoxemia and treatment be mostly supportive 2-patient also have elevated white count chest x-ray with moderate right effusion and underlying atelectasis versus pneumonia need to rule out bacterial etiology 3the patient procalcitonin is mildly elevated sputum requested but not collected. 4patient to continue with the Rocephin along with zinc ascorbic acid heparin and monitor clinical course closely Dictation was produced using [employer] dictation software. please excuse any grammatical, word or spelling errors.
--- NOTE | 2023-11-17 15:22 | P.PN ---
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 She was brought here to the emergency room last evening for a 3-4 day history of poor appetite, nausea vomiting and weakness. She is residing in [facility]. Chest x-ray revealed moderate right pleural effusion. Cardiomegaly. Moderate pulmonary edema. No pneumothorax. White count 12.7. Hemoglobin 12.4. Platelets 572. Sodium 137. Potassium 4.8. Bicarb 18. BUN 44. Creatinine 1.0. AST 23. ALT 15. ProBNP 4360. Urinalysis clear. She did test positive for COVID-19 infection. He is seen today in consultation in the emergency department. She is sitting up in bed. She is a poor historian. Maintaining O2 saturations in the 90s on 2 L/m per nasal cannula. She's afebrile. Hemodynamically stable. Ultrasound of the chest was ordered and there is a small right pleural effusion of 3.8 cm. No significant fluid on the left. No plans for thoracentesis. His been initiated on bronchodilators. Antibiotics in the form of ceftriaxone. Vitamin supplements. She is on Lasix 40 mg IV daily. No urine output recorded thus fa r. The patient is seen today 11/17/2023 in follow-up on the regular medical floor. She is resting comfortably in bed. Maintaining O2 saturations in the 90s on 3 L/m per nasal cannula. Staff did find her without her oxygen and on room air her saturations were in the 70s. She recovered quickly. She is continued on ceftriaxone. Pro-calcitonin 0.18. White count 10.0. Hemoglobin 10.9. Platele ts 498. Sodium 140 per potassium 4.8. Bicarb 20. BUN 38. Creatinine 0.9. Glucose 67. She did have issues with atrial fibrillation and she is now anticoagulated with Eliquis. She remains on IV diuretics. Diuresing well. Echocardiogram revealed preserved left ventricular systolic function. Mild pulmonary hypertension. Objective - Vital Signs Vital signs: Vital Signs Temp 97.6 F 11/17/23 07:12 Pulse 73 11/17/23 07:12 Resp 18 11/17/23 07:12 BP 113/53 11/17/23 07:12 Pulse Ox 100 11/17/23 07:12 FiO2 Intake & Output 11/16/23 11/17/23 11/17/23 18:59 06:59 18:59 Output Total 1999 Balance -1999 Weight 40.823 kg 40.823 kg Output: Urine 1999 Other: Voiding Method External Catheter - Exam GENERAL EXAM: Alert, pleasant 87-year-old female, poor historian, on room air, in no apparent distress. HEAD: Normocephalic. EYES: Normal reaction of pupils, equal size. NOSE: Clear with pink turbinates. THROAT: No erythema or exudates. NECK: No masses, no JVD. CHEST: No chest wall deformity. LUNGS: Equal air entry with basilar crackles right greater than left. CVS: S1 and S2 normal with no audible murmur, regular rhythm. ABDOMEN: No hepatosplenomegaly, normal bowel sounds, no guarding or rigidity. SPINE: No scoliosis or deformity SKIN: No rashes CENTRAL NERVOUS SYSTEM: No focal deficits, tone is normal in all 4 extremities. EXTREMITIES: There is no peripheral edema. No clubbing, no cyanosis. Peripheral pulses are intact. - Labs CBC & Chem 7: 11/17/23 07:16 11/17/23 07:16 Labs: Abnormal Lab Results - Last 24 Hours (Table) 11/16/23 11/17/23 11/17/23 Range/Units 09:00 07:16 07:16 WBC 10.04 H (4.50-10.00) X 10*3/uL RBC 4.00 L (4.10-5.20) X 10*6/uL Hgb 10.9 L (12.0-15.0) g/dL Hct 36.4 L (37.2-46.3) % MCHC 29.9 L (32.0-37.0) g/dL RDW 14.9 H (11.5-14.5) % Plt Count 498 H (140-440) X 10*3/uL Immature Gran # 0.09 H (0.00-0.04) X 10*3/uL Carbon Dioxide 19.7 L (21.6-31.8) mmol/L Anion Gap 16.30 H (4.00-12.00) mmol/L BUN 37.9 H (9.0-27.0) mg/dL BUN/Creatinine Ratio 42.11 H (12.00-20.00) Ratio Glucose 67 L (70-110) mg/dL Procalcitonin 0.18 H (0.02-0.09) ng/mL Microbiology - Last 24 Hours (Table) 11/16/23 02:16 Blood Culture - Preliminary Blood 11/16/23 01:58 Blood Culture - Preliminary Blood Assessment and Plan Assessment: Generalized weakness with nausea and vomiting secondary to acute COVID-19 infection without evidence of CoVID pneumonia Acute on suspected chronic diastolic congestive heart failure, previous echocardiogram revealed preserved left ventricular systolic function Atrial fibrillation, anticoagulated with Eliquis 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 Benign hypertension Former smoker Hyperlipidemia History of tuberculosis at the age of 22, institutionalized for 9 months History of gastric ulcer repair and PEG tube placement with subsequent removal Poor overall functional performance based on the above-mentioned multiple comorbidities correction resident Plan: The patient was seen and evaluated Echocardiogram, labs and medications reviewed Remains on ceftriaxone Continue vitamin supplements, bronchodilators Anticoagulated with Eliquis DO NOT RESUSCITATE/DO NOT INTUBATE CODE STATUS We will continue to follow I have personally seen and examined the patient, performed the documentation and the assessment and plan as written. Number of minutes spent on the visit: 10.
--- NOTE | 2023-11-17 17:25 | P.PN ---
Subjective Progress Note Date: 11/17/23 This is an 87-year-old female patient who presented with complaints of nausea vomiting and weakness over the past 3-4 days. Patient currently resides at [facility]. Upon arrival patient was found to be positive for COVID-19. Influenza and RSV negative. Patient's past medical history of recent fall with pubic ramus fracture, essential hypertension, hyperlipidemia and gastroenteritis. Chest x-ray completed showing moderate right pleural effusion moderate pulmonary edema findings are consistent with CHF. BNP level 4360. Patient started on IV Lasix. Patient started on vitamin C, zinc and vitamin D. At this time pulmonary service service is consulted for pleural effusion, infectious disease services and cardiology services consulted. Patient started on IV antibiotics. Repeat labs ordered. Patient denies chest pain or shortness of breath. Patient does complain of some nausea. Patient denies any urinary burning or frequency On 11/17/2023 patient was seen and examined on the medical floor she is alert and oriented 3 in no apparent distress, she is still complaining of cough and shortness of breath with any activity otherwise she denies any complaints there is no fever or chills no headache or dizziness no chest pain no nausea or vomiting no abdominal pain no diarrhea and no urinary symptoms Objective - Vital Signs Vital signs: Vital Signs Temp 97.6 F 11/17/23 14:00 Pulse 84 11/17/23 14:00 Resp 18 11/17/23 14:00 BP 110/52 11/17/23 14:00 Pulse Ox 92 L 11/17/23 14:00 FiO2 Intake & Output 11/16/23 11/17/23 11/17/23 18:59 06:59 18:59 Output Total 1999 Balance -1999 -700 Weight 40.823 kg 40.823 kg Output: Urine 1999 Other: Voiding Method External Catheter - Exam Head normocephalic Neck supple Lungs clear to auscultation bilaterally no wheezing or crackles Heart regular rate and rhythm S1-S2, no rub or gallop Abdomen is soft nontender nondistended positive bowel sounds no hepatospleno megaly Extremities no edema Neuro alert and orientated to 3 - Labs CBC & Chem 7: 11/17/23 07:16 11/17/23 07:16 Labs: Abnormal Lab Results - Last 24 Hours (Table) 11/17/23 11/17/23 Range/Units 07:16 07:16 WBC 10.04 H (4.50-10.00) X 10*3/uL RBC 4.00 L (4.10-5.20) X 10*6/uL Hgb 10.9 L (12.0-15.0) g/dL Hct 36.4 L (37.2-46.3) % MCHC 29.9 L (32.0-37.0) g/dL RDW 14.9 H (11.5-14.5) % Plt Count 498 H (140-440) X 10*3/uL Immature Gran # 0.09 H (0.00-0.04) X 10*3/uL Carbon Dioxide 19.7 L (21.6-31.8) mmol/L Anion Gap 16.30 H (4.00-12.00) mmol/L BUN 37.9 H (9.0-27.0) mg/dL BUN/Creatinine Ratio 42.11 H (12.00-20.00) Ratio Glucose 67 L (70-110) mg/dL Microbiology - Last 24 Hours (Table) 11/16/23 02:16 Blood Culture - Preliminary Blood 11/16/23 01:58 Blood Culture - Preliminary Blood Assessment and Plan Assessment: 1. nausea vomiting and weakness secondary to COVID-19 infection 2. Pleural effusion. Pulmonary service is consulted 3. Acute CHF exacerbation. Patient started on IV Lasix. 2-D echo ordered cardiology services 4. Recent fall with pubic ramus fracture 5. History of essential hypertension 6. History of hyperlipidemia 7. History of gastroenteritis DVT prophylaxis heparin. GI prophylaxis Protonix. Patient started on vitamin C zinc and vitamin D Patient seen on IV antibiotics Pulmonary service is consulted for pleural effusion 2-D echo ordered patient on IV Lasix Cardiology service is consulted Infectious disease service is consulted Repeat labs ordered
[2023-11-17] MEDS: ATORVASTATIN 10 MG TAB PO SCH (19:53)
[2023-11-17] MEDS: MIRTAZAPINE 15 MG TAB PO SCH (19:53)
[2023-11-18] MEDS: traMADol 50 MG TAB PO SCH ×4 (06:11→23:03)
[2023-11-18] MEDS: ALBUTEROL HFA INHALER INHALATION SCH ×3 (08:24→20:14)
--- NOTE | 2023-11-18 09:20 | XR ---
EXAMINATION TYPE: XR chest 1V portable DATE OF EXAM: 11/18/2023 Comparison: 11/16/2023 Clinical History: 87-year-old female CoVID Findings: Patient obliqued towards the right and also rotated towards the right. Heart normal size. There is a small to moderate right pleural effusion with prominent opacity at the right mid and lower lung. Effu geovanny decreased from prior. Left suprahilar consolidation also improving. Loss of the subacromial spac e on both sides suggesting chronic full-thickness rotator cuff tears. Hyperinflation. Impression: 1. COPD with decreasing right pleural effusion, now [id number] in size. 2. Extensive opacity right mid and lower lung persists. 3. Patchy left suprahilar airspace disease is slightly improving.
--- NOTE | 2023-11-18 10:00 | P.PN ---
Subjective Progress Note Date: 11/18/23 This is an 87-year-old female patient who presented with complaints of nausea vomiting and weakness over the past 3-4 days. Patient currently resides at [facility]. Upon arrival patient was found to be positive for COVID-19. Influenza and RSV negative. Patient's past medical history of recent fall with pubic ramus fracture, essential hypertension, hyperlipidemia and gastroenteritis. Chest x-ray completed showing moderate right pleural effusion moderate pulmonary edema findings are consistent with CHF. BNP level 4360. Patient started on IV Lasix. Patient started on vitamin C, zinc and vitamin D. At this time pulmonary service service is consulted for pleural effusion, infectious disease services and cardiology services consulted. Patient started on IV antibiotics. Repeat labs ordered. Patient denies chest pain or shortness of breath. Patient does complain of some nausea. Patient denies any urinary burning or frequency On 11/17/2023 patient was seen and examined on the medical floor she is alert and oriented 3 in no apparent distress, she is still complaining of cough and shortness of breath with any activity otherwise she denies any complaints there is no fever or chills no headache or dizziness no chest pain no nausea or vomiting no abdominal pain no diarrhea and no urinary symptoms On 11/18/2023 patient alert and oriented 3. Patient was started on eliquis per cardiology services for new onset atrial fibrillation heart rate remains controlled at this time. Patient remains on IV antibiotics. Infectious disease, cardiology and pulmonary services are following. Current vital signs temp 98.1, heart rate 84, blood pressure 120/55 and pulse ox 99% on 3 L Objective - Vital Signs Vital signs: Vital Signs Temp 98.1 F 11/18/23 00:42 Pulse 84 11/18/23 00:42 Resp 18 11/17/23 19:33 BP 120/55 11/18/23 00:42 Pulse Ox 90 L 11/18/23 08:26 FiO2 Intake & Output 11/17/23 11/18/23 11/18/23 18:59 06:59 18:59 Output Total 700 300 Balance -700 -300 Weight 40.823 kg 35.5 kg Output: Urine 700 300 Other: Voiding Method External Catheter - Exam Head normocephalic Neck supple Lungs clear to auscultation bilaterally no wheezing or crackles Heart regular rate and rhythm S1-S2, no rub or gallop Abdomen is soft nontender nondistended positive bowel sounds no hepatosplenomegaly Extremities no edema Neuro alert and orientated to 3 - Labs CBC & Chem 7: 11/17/23 07:16 11/17/23 07:16 Labs: Abnormal Lab Results - Last 24 Hours (Table) 11/17/23 11/17/23 Range/Units 07:16 07:16 WBC 10.04 H (4.50-10.00) X 10*3/uL RBC 4.00 L (4.10-5.20) X 10*6/uL Hgb 10.9 L (12.0-15.0) g/dL Hct 36.4 L (37.2-46.3) % MCHC 29.9 L (32.0-37.0) g/dL RDW 14.9 H (11.5-14.5) % Plt Count 498 H (140-440) X 10*3/uL Immature Gran # 0.09 H (0.00-0.04) X 10*3/uL Carbon Dioxide 19.7 L (21.6-31.8) mmol/L Anion Gap 16.30 H (4.00-12.00) mmol/L BUN 37.9 H (9.0-27.0) mg/dL BUN/Creatinine Ratio 42.11 H (12.00-20.00) Ratio Glucose 67 L (70-110) mg/dL Microbiology - Last 24 Hours (Table) 11/16/23 02:16 Blood Culture - Preliminary Blood 11/16/23 01:58 Blood Culture - Preliminary Blood Assessment and Plan Assessment: nausea vomiting and weakness secondary to COVID-19 infection Pleural effusion. Pulmonary service is consulted Acute CHF exacerbation. Patient started on IV Lasix. 2-D echo ordered cardiology services New-onset atrial fibrillation. Patient started on eliquis. Heart rate remains controlled at this time Heart remained controlled at this time. Recent fall with pubic ramus fracture History of essential hypertension History of hyperlipidemia History of gastroenteritis DVT prophylaxis heparin. GI prophylaxis Protonix. Patient started on vitamin C zinc and vitamin D Patient seen on IV antibiotics Pulmonary service is consulted for pleural effusion 2-D echo ordered patient on IV Lasix Cardiology service is consulted Infectious disease service is consulted Repeat labs ordered
[2023-11-18] MEDS: FUROSEMIDE 40 MG TAB PO SCH (10:20)
[2023-11-18] MEDS: DOCUSATE 100 MG CAP PO SCH ×2 (10:20→23:03)
[2023-11-18] MEDS: PANTOPRAZOLE 40 MG TABLET PO SCH ×2 (10:20→23:03)
[2023-11-18] MEDS: ZINC SULFATE 220 MG CAP PO SCH (10:20)
[2023-11-18] MEDS: ASCORBIC ACID 500 MG TAB PO SCH (10:20)
[2023-11-18] MEDS: ARTIFICIAL TEARS-HYPROMELLOSE DROPS 15 ML BTL BOTH EYES SCH ×2 (10:22→23:05)
[2023-11-18] MEDS: APIXABAN 2.5 MG TABLET PO SCH ×2 (10:22→23:05)
[2023-11-18] MEDS: amLODIPine 5 MG TAB PO SCH (10:22)
[2023-11-18] MEDS: ONDANSETRON 4 MG TAB PO SCH ×2 (10:22→23:05)
[2023-11-18] MEDS: CHOLECALCIFEROL 10 MCG (400 IU) TABLET PO SCH (10:23)
--- NOTE | 2023-11-18 10:33 | P.PN ---
Subjective HISTORY OF PRESENT ILLNESS: This is a 87-year-old female with a past medical history significant for lung cancer with previous radiation, hypertension, hyperlipidemia, GERD, and former nicotine dependence. Patient does not follow with a psych np. We have been asked to see the patient in consultation for congestive heart failure. Patient examined at the bedside. Patient states she came to the hospital due to a fall. She is somewhat of a poor historian. According to ER records, the patient was brought to the hospital from her nursing facility secondary to nausea and vomiting, decreased appetite, and generalized weakness over the past few days. The patient was found to have Covid. She denies any chest pain or pressure. She currently denies shortness of breath. She is resting comfortably on the ER stretcher in no acute distress. * EKG reveals sinus mechanism with incomplete right bundle branch block. No signs of acute ischemia. * Chest xray moderate right pleural effusion. Moderate pulmonary edema. Cardiomegaly Findings are consistent with CHF. * Laboratory data: WBC 12.7. Hemoglobin 12.4. Platelet count 572. Sodium 137. Potassium 4.8. BUN 44. Creatinine 1.0. ProBNP 4360. Magnesium 1.9. * Current home cardiac medications include simvastatin 20 mg at night and amlodipine 5 mg daily * Most recent echocardiogram obtained in August 2022 revealed ejection fraction 55-60% with mild mitral regurgitation * Cardiac catheterization history: Unknown 11/17/2023 Patient examined this morning at the bedside. Patient currently denies chest pain or pressure. She denies shortness of breath. She remains on Lasix 40 mg IV daily. Patient went into atrial fibrillation overnight. She remains atrophic relation with controlled ventricular rate this morning. The patient does not have a history of atrial fibrillation. 11/18/2023 Patient examined this morning at the bedside. Patient states she is feeling better today. She denies chest pain or pressure. She denies shortness of breath. The patient did convert to sinus mechanism yesterday. However, she is back in atrial fibrillation at the time of examination with controlled ventricular rate. Echocardiogram completed revealing ejection fraction 55-60% with mild pulmonary hypertension, mild mitral regurgitation and mild tricuspid regurgitation. TSH within normal limits. PHYSICAL EXAM: VITAL SIGNS: Reviewed. GENERAL: Well-developed in no acute distress. HEENT: Head is normocephalic. Pupils are equal, round. Sclerae anicteric. Mucous membranes of the mouth are moist. Neck supple. No JVD or thyromegaly LUNGS: Respirations even and unlabored. Lungs diminished bilaterally, left greater than right HEART: Irregular rate and rhythm. S1 and S2 heard. + systolic murmur ABDOMEN: Soft. Nondistended. Nontender. EXTREMITIES: Normal range of motion. No clubbing or cyanosis. Peripheral pulses intact. No lower extremity edema NEUROLOGIC: Awake and alert. Oriented x 3. ASSESSMENT: Nausea and vomiting, decreased appetite, and generalized weakness 4 days Leukocytosis Acute Covid 19 New-onset atrial fibrillation with controlled ventricular rate Right pleural effusion, not large enough for thoracentesis per pulmonary Possible mild acute heart failure with preserved EF, 55-60% in August 2022, not fluid overloaded on clinical examination Hypertension Hyperlipidemia History of GERD History of lung cancer with previous radiation PLAN: Continue current cardiac medications Continue telemetry monitoring Patient is currently rate controlled. If she begins to have episodes of A. fib with RVR, we will add beta adriana therapy Further recommendations pending patient's course Nurse practitioner note has been reviewed by physician. Signing provider agrees with the documented findings, assessment, and plan of care. Objective - Vital Signs Vital signs: Vital Signs Temp 97.8 F 11/18/23 07:14 Pulse 51 L 11/18/23 07:14 Resp 17 11/18/23 07:14 BP 116/65 11/18/23 07:14 Pulse Ox 90 L 11/18/23 08:26 FiO2 Intake & Output 11/17/23 11/18/23 11/18/23 18:59 06:59 18:59 Output Total 700 300 Balance -700 -300 Weight 40.823 kg 35.5 kg Output: Urine 700 300 Other: Voiding Method External Catheter - Labs CBC & Chem 7: 11/17/23 07:16 11/17/23 07:16 Labs: Abnormal Lab Results - Last 24 Hours (Table) 11/17/23 11/17/23 Range/Units 07:16 07:16 WBC 10.04 H (4.50-10.00) X 10*3/uL RBC 4.00 L (4.10-5.20) X 10*6/uL Hgb 10.9 L (12.0-15.0) g/dL Hct 36.4 L (37.2-46.3) % MCHC 29.9 L (32.0-37.0) g/dL RDW 14.9 H (11.5-14.5) % Plt Count 498 H (140-440) X 10*3/uL Immature Gran # 0.09 H (0.00-0.04) X 10*3/uL Carbon Dioxide 19.7 L (21.6-31.8) mmol/L Anion Gap 16.30 H (4.00-12.00) mmol/L BUN 37.9 H (9.0-27.0) mg/dL BUN/Creatinine Ratio 42.11 H (12.00-20.00) Ratio Glucose 67 L (70-110) mg/dL Microbiology - Last 24 Hours (Table) 11/16/23 02:16 Blood Culture - Preliminary Blood 11/16/23 01:58 Blood Culture - Preliminary Blood
--- NOTE | 2023-11-18 13:00 | CDI ---
Documentation Clarification Form Date: 11/18/2023 12:25:20 PM From: Evelyn Mccord RN CCDS Phone: [phone] Admit Date: 11/16/2023 01:01:00 AM Patient Name: Patricia Oh V Visit Number: [id number] Discharge Date: ATTENTION: The Clinical Documentation Specialists (CDI) and [facility] Coding Staff appreciate your assistance in clarifying documentation. Please respond to the clarification below the line at the bottom and electronically sign. The CDI & [facility] Coding staff will review the response and follow-up if needed. Please note: Queries are made part of the Legal Health Record. If you have any questions, please contact the author of this message via ITS. Dr. Yanet Fournier The Registered Dietitian assessment on 11/18, Nutritional assessment indicates this patient meets criteria for Severe malnutrition. Based on this information and the findings below, is there an additional diagnosis that is clinically appropriate for this patient? History/Risk Factors: 87-year-old female presents to the ED with nausea, vomiting and weakness from ECF. Medical history, recent fall with pubic ramus fracture, HTN, CHF and Lung cancer. 11/16, H&P. Clinical Indicators: RD Nutritional Assessment, 11/18: Current BMI: 14.3kg, Height 5ft 2inches. Weight 35.5kg built in bed scale, calculated ideal body weight 50kg. % of usual body weight loss 74%. UBW from hospital admit 01/07/2023 pt with >25% UBW weight loss x 10 month. Described as thin by RN. Estimated Nutritional needs in: Kcals 1224- 1428 Kcal; Protein 48-61 grams/day Nutritional diagnosis: chronic severe malnutrition. Related to COVID, older age and CHF. Treatment: Monitor PO intake and Supplement intake, Monitor tolerance to oral supplements Supplements: Magic cup TID, Ensure compact TID Is there an additional diagnosis that is clinically appropriate for this patient? [ xxxx ] Severe Protein-Calorie Malnutrition [ ] Other condition, please specify [ ] Unable to Determine (Template Last Revised: May 2023) MTDD
--- NOTE | 2023-11-18 13:21 | CDI ---
Documentation Clarification Form Date: 11/18/2023 01:07:00 PM From: Evelyn Mccord RN CCDS Phone: [phone] Admit Date: 11/16/2023 01:01:00 AM Patient Name: Patricia Oh V Visit Number: [id number] Discharge Date: ATTENTION: The Clinical Documentation Specialists (CDI) and [facility] Coding Staff appreciate your assistance in clarifying documentation. Please respond to the clarification below the line at the bottom and electronically sign. The CDI & [facility] Coding staff will review the response and follow-up if needed. Please note: Queries are made part of the Legal Health Record. If you have any questions, please contact the author of this message via ITS. Dr. Yanet Fournier Your patient has Three liters of oxygen via nasal cannula. Based on this information and the findings below, is there an additional diagnosis that is clinically appropriate for this patient? History/Risk Factors: 87-year-old female presents to the ED with nausea, vomiting and weakness from ECF. Medical history, recent fall with pubic ramus fracture, HTN, CHF and Lung cancer. 11/16, H&P. Clinical Indicators: From [facility] Vital signs,11/16 13:00: B/P 133/64, RR 16, HR 87, SpO2 98% 3L SpO2: 11/17 07:12 100% 3L nasal cannula; 11/18 08:26 90% 3L nasal cannula. Lung/Breathing assessment 11/17, Pulmonary consult: Equal air entry with basilar crackles right greater than left. Pulmonary note, 11/17: Staff did find her without her oxygen and on room air her saturations were in the 70s.She recovered quickly. Treatment: Breathing tx: Ventolin Hfa Inhaler TID PREMA; Oxygen 3L nasal cannula Is there an additional diagnosis that is clinically appropriate for this patient? [ xxxx ] Acute Hypoxic Respiratory Failure (pO2 <60 mm Hg or SpO2 <91% on room air) [ ] Other Diagnosis, please specify [ ] Unable to determine (Template Last Revised: January 2021) MTDD
--- NOTE | 2023-11-18 14:56 | P.PN ---
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 She was brought here to the emergency room last evening for a 3-4 day history of poor appetite, nausea vomiting and weakness. She is residing in [facility]. Chest x-ray revealed moderate right pleural effusion. Cardiomegaly. Moderate pulmonary edema. No pneumothorax. White count 12.7. Hemoglobin 12.4. Platelets 572. Sodium 137. Potassium 4.8. Bicarb 18. BUN 44. Creatinine 1.0. AST 23. ALT 15. ProBNP 4360. Urinalysis clear. She did test positive for COVID-19 infection. He is seen today in consultation in the emergency department. She is sitting up in bed. She is a poor historian. Maintaining O2 saturations in the 90s on 2 L/m per nasal cannula. She's afebrile. Hemodynamically stable. Ultrasound of the chest was ordered and there is a small right pleural effusion of 3.8 cm. No significant fluid on the left. No plans for thoracentesis. His been initiated on bronchodilators. Antibiotics in the form of ceftriaxone. Vitamin supplements. She is on Lasix 40 mg IV daily. No urine output recorded thus fa r. The patient is seen today 11/17/2023 in follow-up on the regular medical floor. She is resting comfortably in bed. Maintaining O2 saturations in the 90s on 3 L/m per nasal cannula. Staff did find her without her oxygen and on room air her saturations were in the 70s. She recovered quickly. She is continued on ceftriaxone. Pro-calcitonin 0.18. White count 10.0. Hemoglobin 10.9. Platele ts 498. Sodium 140 per potassium 4.8. Bicarb 20. BUN 38. Creatinine 0.9. Glucose 67. She did have issues with atrial fibrillation and she is now anticoagulated with Eliquis. She remains on IV diuretics. Diuresing well. Echocardiogram revealed preserved left ventricular systolic function. Mild pulmonary hypertension. The patient is seen today 11/18/2023 in follow-up on the regular medical floor. She is awake and alert in no acute distress. She remains quite weak. She is maintaining O2 saturations in the 90s on 3 L/m per nasal cannula. She's been afebrile. Hemodynamically stable. Follow-up chest x-ray reveals evidence of COPD with decreasing right pleural effusion. Extensive opacity in the right mid and lower lung persist. Patchy left suprahilar airspace slightly improved. Blood culture reveals no growth. No new labs today. She remains on antibiotics and warm ceftriaxone. Anticoagulated with Eliquis. Remains on oral diuretics. Diuresing well. Objective - Vital Signs Vital signs: Vital Signs Temp 97.5 F L 11/18/23 12:37 Pulse 76 11/18/23 12:37 Resp 17 11/18/23 12:37 BP 109/60 11/18/23 12:37 Pulse Ox 94 L 11/18/23 12:37 FiO2 Intake & Output 11/17/23 11/18/23 11/18/23 18:59 06:59 18:59 Output Total 700 300 Balance -700 -300 Weight 40.823 kg 35.5 kg 35.5 kg Output: Urine 700 300 Other: Voiding Method External Catheter # Voids 1 - Exam GENERAL EXAM: Alert, weak 87-year-old female, poor historian, on 3 L nasal cannula, in no apparent distress. HEAD: Normocephalic. EYES: Normal reaction of pupils, equal size. NOSE: Clear with pink turbinates. THROAT: No erythema or exudates. NECK: No masses, no JVD. CHEST: No chest wall deformity. LUNGS: Equal air entry with basilar crackles right greater than left. CVS: S1 and S2 normal with no audible murmur, regular rhythm. ABDOMEN: No hepatosplenomegaly, normal bowel sounds, no guarding or rigidity. SPINE: No scoliosis or deformity SKIN: No rashes CENTRAL NERVOUS SYSTEM: No focal deficits, tone is normal in all 4 extremities. EXTREMITIES: There is no peripheral edema. No clubbing, no cyanosis. Peripheral pulses are intact. - Labs CBC & Chem 7: 11/17/23 07:16 11/17/23 07:16 Labs: Abnormal Lab Results - Last 24 Hours (Table) 11/17/23 Range/Units 07:16 WBC 10.04 H (4.50-10.00) X 10*3/uL RBC 4.00 L (4.10-5.20) X 10*6/uL Hgb 10.9 L (12.0-15.0) g/dL Hct 36.4 L (37.2-46.3) % MCHC 29.9 L (32.0-37.0) g/dL RDW 14.9 H (11.5-14.5) % Plt Count 498 H (140-440) X 10*3/uL Immature Gran # 0.09 H (0.00-0.04) X 10*3/uL Microbiology - Last 24 Hours (Table) 11/16/23 02:16 Blood Culture - Preliminary Blood 11/16/23 01:58 Blood Culture - Preliminary Blood Assessment and Plan Assessment: Generalized weakness with nausea and vomiting secondary to acute COVID-19 infection without evidence of CoVID pneumonia Acute on chronic diastolic congestive heart failure, echocardiogram revealed preserved left ventricular systolic function Atrial fibrillation, anticoagulated with Eliquis 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 lobe Benign hypertension Former smoker Hyperlipidemia History of tuberculosis at the age of 22, institutionalized for 9 months History of gastric ulcer repair and PEG tube placement with subsequent removal Poor overall functional performance based on the above-mentioned multiple comorbidities snf resident Plan: The patient was seen and evaluated Chest x-ray and medications reviewed Remains on ceftriaxone, diuretics Remains on vitamin supplements, bronchodilators Anticoagulated with Eliquis DO NOT RESUSCITATE/DO NOT INTUBATE CODE STATUS We will continue to follow I have personally seen and examined the patient, performed the documentation and the assessment and plan as written. Number of minutes spent on the visit: 10.
[2023-11-18 19:02] LABS: Basophils # (A) 0.06 X 10*3/uL (0.00-0.10); Basophils % (A) 0.7 %; Eosinophils % (A) 2.3 %; HCT 42.5 % (37.2-46.3); HGB 13.3 g/dL (12.0-15.0); Lymphocytes # (A) 2.64 X 10*3/uL (0.90-5.00); Lymphocytes % (A) 30.2 %; MCH 27.7 pg (27.0-32.0); MCHC 31.3 g/dL (32.0-37.0); MCV 88.5 FL (80.0-97.0); Monocytes # (A) 0.64 X 10*3/uL (0.20-1.00); Monocytes % (A) 7.3 %; NRBC Per 100 WBC 0 X 10*3/uL (0.00-0.01); Neutrophils # (A) 5.14 X 10*3/uL (1.80-7.70); Neutrophils % (A) 58.8 %; Platelet Count 504 X 10*3/uL (140-440); RDW 14.9 % (11.5-14.5); WBC 8.74 X 10*3/uL (4.50-10.00)
[2023-11-18] MEDS: ATORVASTATIN 10 MG TAB PO SCH (23:03)
[2023-11-18] MEDS: MIRTAZAPINE 15 MG TAB PO SCH (23:04)
[2023-11-19 01:43] LABS: ALT 14 U/L (8-44); AST 27 U/L (13-35); Albumin 3.1 g/dL (3.8-4.9); Albumin/Globulin Ratio 0.97 Ratio (1.60-3.17); Alkaline Phosphatase 167 U/L (41-126); BUN/Creat Ratio 35.11 Ratio (12.00-20.00); Blood Urea Nitrogen 31.6 mg/dL (9.0-27.0); Carbon Dioxide 20.1 mmol/L (21.6-31.8); Chloride 101 mmol/L (96-109); Globulin 3.2 g/dL (1.6-3.3); Glucose 101 mg/dL (70-110); Potassium 4.2 mmol/L (3.5-5.5); Sodium 138 mmol/L (135-145); Total Bilirubin <0.2 mg/dL (0.3-1.2); Total Protein 6.3 g/dL (6.2-8.2)
[2023-11-19] MEDS: traMADol 50 MG TAB PO SCH ×4 (06:19→23:16)
[2023-11-19] MEDS: APIXABAN 2.5 MG TABLET PO SCH ×2 (08:36→20:35)
[2023-11-19] MEDS: PANTOPRAZOLE 40 MG TABLET PO SCH ×2 (08:36→20:35)
[2023-11-19] MEDS: FUROSEMIDE 40 MG TAB PO SCH (08:36)
[2023-11-19] MEDS: amLODIPine 5 MG TAB PO SCH (08:36)
[2023-11-19] MEDS: ONDANSETRON 4 MG TAB PO SCH ×2 (08:36→20:35)
[2023-11-19] MEDS: ASCORBIC ACID 500 MG TAB PO SCH (08:37)
[2023-11-19] MEDS: DOCUSATE 100 MG CAP PO SCH ×2 (08:37→20:35)
[2023-11-19] MEDS: CHOLECALCIFEROL 10 MCG (400 IU) TABLET PO SCH (08:37)
[2023-11-19] MEDS: ZINC SULFATE 220 MG CAP PO SCH (08:37)
[2023-11-19] MEDS: ARTIFICIAL TEARS-HYPROMELLOSE DROPS 15 ML BTL BOTH EYES SCH ×2 (08:37→20:36)
[2023-11-19] MEDS: ALBUTEROL HFA INHALER INHALATION SCH ×3 (08:49→21:18)
[2023-11-19 09:18] LABS: Basophils # (A) 0.1 k/uL (0-0.2); Basophils % (A) 1 %; Eosinophils # (A) 0.3 k/uL (0-0.7); Eosinophils % (A) 3 %; HCT 39.4 % (34.0-46.0); HGB 12.2 gm/dL (11.4-16.0); Hypochromasia Moderate; Lymphocytes # (A) 3.1 k/uL (1.0-4.8); Lymphocytes % (A) 30 %; MCH 28.2 pg (25.0-35.0); MCHC 30.9 g/dL (31.0-37.0); MCV 91.2 fL (80.0-100.0); Mean Platelet Volume 8.7; Monocytes # (A) 0.6 k/uL (0-1.0); Monocytes % (A) 6 %; Neutrophils # (A) 5.9 k/uL (1.3-7.7); Neutrophils % (A) 58 %; Platelet Count 445 k/uL (150-450); RBC 4.32 m/uL (3.80-5.40); RDW 14.3 % (11.5-15.5); WBC 10.1 k/uL (3.8-10.6)
--- NOTE | 2023-11-19 11:02 | P.PN ---
Subjective Progress Note Date: 11/19/23 This is an 87-year-old female patient who presented with complaints of nausea vomiting and weakness over the past 3-4 days. Patient currently resides at [facility]. Upon arrival patient was found to be positive for COVID-19. Influenza and RSV negative. Patient's past medical history of recent fall with pubic ramus fracture, essential hypertension, hyperlipidemia and gastroenteritis. Chest x-ray completed showing moderate right pleural effusion moderate pulmonary edema findings are consistent with CHF. BNP level 4360. Patient started on IV Lasix. Patient started on vitamin C, zinc and vitamin D. At this time pulmonary service service is consulted for pleural effusion, infectious disease services and cardiology services consulted. Patient started on IV antibiotics. Repeat labs ordered. Patient denies chest pain or shortness of breath. Patient does complain of some nausea. Patient denies any urinary burning or frequency On 11/17/2023 patient was seen and examined on the medical floor she is alert and oriented 3 in no apparent distress, she is still complaining of cough and shortness of breath with any activity otherwise she denies any complaints there is no fever or chills no headache or dizziness no chest pain no nausea or vomiting no abdominal pain no diarrhea and no urinary symptoms On 11/18/2023 patient alert and oriented 3. Patient was started on eliquis per cardiology services for new onset atrial fibrillation heart rate remains controlled at this time. Patient remains on IV antibiotics. Infectious disease, cardiology and pulmonary services are following. Current vital signs temp 98.1, heart rate 84, blood pressure 120/55 and pulse ox 99% on 3 L. On 11/19/2023 patient was seen and examined on the medical floor she is alert and oriented 3 in no apparent distress, she is feeling better, she is still complaining of cough and shortness of breath with activity, otherwise she denies any complaints, there is no fever or chills no headache or dizziness no chest pain no nausea or vomiting no abdominal pain no diarrhea and no urinary symptoms. Vital exam reveals a temperature of 97.7 pulse 90 respirations 17 blood pressure 108/53 pulse ox 98% on 2 L nasal cannula white blood count is 10.1 hemoglobin 12.2 platelet count 445 CMP is still pending Objective - Vital Signs Vital signs: Vital Signs Temp 97.7 F 11/19/23 07:35 Pulse 90 11/19/23 07:35 Resp 17 11/19/23 07:35 BP 108/53 11/19/23 07:35 Pulse Ox 98 11/19/23 07:35 FiO2 Intake & Output 11/18/23 11/19/23 11/19/23 18:59 06:59 18:59 Weight 35.5 kg 36 kg Other: # Voids 1 - Exam Head normocephalic Neck supple Lungs clear to auscultation bilaterally no wheezing or crackles Heart regular rate and rhythm S1-S2, no rub or gallop Abdomen is soft nontender nondistended positive bowel sounds no hepatosplenomegaly Extremities no edema Neuro alert and orientated to 3 - Labs CBC & Chem 7: 11/19/23 08:02 11/18/23 13:07 Labs: Abnormal Lab Results - Last 24 Hours (Table) 11/18/23 11/18/23 11/19/23 Range/Units 13:07 13:07 08:02 MCHC 31.3 L 30.9 L (32.0-37.0) g/dL RDW 14.9 H (11.5-14.5) % Plt Count 504 H (140-440) X 10*3/uL Immature Gran # 0.06 H (0.00-0.04) X 10*3/uL Carbon Dioxide 20.1 L (21.6-31.8) mmol/L Anion Gap 16.90 H (4.00-12.00) mmol/L BUN 31.6 H (9.0-27.0) mg/dL BUN/Creatinine Ratio 35.11 H (12.00-20.00) Ratio Total Bilirubin <0.2 L (0.3-1.2) mg/dL Alkaline Phosphatase 167 H (41-126) U/L Albumin 3.1 L (3.8-4.9) g/dL Albumin/Globulin Ratio 0.97 L (1.60-3.17) Ratio Microbiology - Last 24 Hours (Table) 11/16/23 02:16 Blood Culture - Preliminary Blood 11/16/23 01:58 Blood Culture - Preliminary Blood Assessment and Plan Assessment: nausea vomiting and weakness secondary to COVID-19 infection Pleural effusion. Pulmonary service is consulted Acute hypoxic respiratory failure requiring oxygen use Acute CHF exacerbation. Patient started on IV Lasix. 2-D echo ordered cardiology services New-onset atrial fibrillation. Patient started on eliquis. Heart rate remains controlled at this time Heart remained controlled at this time. Recent fall with pubic ramus fracture History of essential hypertension History of hyperlipidemia History of gastroenteritis Severe protein calorie malnutrition started on protein supplements DVT prophylaxis heparin. GI prophylaxis Protonix. Patient started on vitamin C zinc and vitamin D Patient seen on IV antibiotics Pulmonary service is consulted for pleural effusion 2-D echo ordered patient on IV Lasix Cardiology service is consulted Infectious disease service is consulted Repeat labs ordered
--- NOTE | 2023-11-19 11:12 | P.PN ---
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 She was brought here to the emergency room last evening for a 3-4 day history of poor appetite, nausea vomiting and weakness. She is residing in [facility]. Chest x-ray revealed moderate right pleural effusion. Cardiomegaly. Moderate pulmonary edema. No pneumothorax. White count 12.7. Hemoglobin 12.4. Platelets 572. Sodium 137. Potassium 4.8. Bicarb 18. BUN 44. Creatinine 1.0. AST 23. ALT 15. ProBNP 4360. Urinalysis clear. She did test positive for COVID-19 infection. He is seen today in consultation in the emergency department. She is sitting up in bed. She is a poor historian. Maintaining O2 saturations in the 90s on 2 L/m per nasal cannula. She's afebrile. Hemodynamically stable. Ultrasound of the chest was ordered and there is a small right pleural effusion of 3.8 cm. No significant fluid on the left. No plans for thoracentesis. His been initiated on bronchodilators. Antibiotics in the form of ceftriaxone. Vitamin supplements. She is on Lasix 40 mg IV daily. No urine output recorded thus fa r. The patient is seen today 11/17/2023 in follow-up on the regular medical floor. She is resting comfortably in bed. Maintaining O2 saturations in the 90s on 3 L/m per nasal cannula. Staff did find her without her oxygen and on room air her saturations were in the 70s. She recovered quickly. She is continued on ceftriaxone. Pro-calcitonin 0.18. White count 10.0. Hemoglobin 10.9. Platele ts 498. Sodium 140 per potassium 4.8. Bicarb 20. BUN 38. Creatinine 0.9. Glucose 67. She did have issues with atrial fibrillation and she is now anticoagulated with Eliquis. She remains on IV diuretics. Diuresing well. Echocardiogram revealed preserved left ventricular systolic function. Mild pulmonary hypertension. The patient is seen today 11/18/2023 in follow-up on the regular medical floor. She is awake and alert in no acute distress. She remains quite weak. She is maintaining O2 saturations in the 90s on 3 L/m per nasal cannula. She's been afebrile. Hemodynamically stable. Follow-up chest x-ray reveals evidence of COPD with decreasing right pleural effusion. Extensive opacity in the right mid and lower lung persist. Patchy left suprahilar airspace slightly improved. Blood culture reveals no growth. No new labs today. She remains on antibiotics and warm ceftriaxone. Anticoagulated with Eliquis. Remains on oral diuretics. Diuresing well. The patient is seen today 11/19/2023 in follow-up on the regular medical floor. She is currently resting comfortably in bed. Currently maintaining good O2 saturations in the high 90s on 2 L/m per nasal cannula. She's afebrile. Hemodynamically stable. White count 10.1. Hemoglobin 12.9. Platelets 445. She is continued on ceftriaxone. Remains on bronchodilators. Remains on oral diuretics. Eliquis for anticoagulation. Continued on vitamin supplements. He has normal saline at 10 MLS per hour. Objective - Vital Signs Vital signs: Vital Signs Temp 97.7 F 11/19/23 07:35 Pulse 90 11/19/23 07:35 Resp 17 11/19/23 07:35 BP 108/53 11/19/23 07:35 Pulse Ox 98 11/19/23 07:35 FiO2 Intake & Output 11/18/23 11/19/23 11/19/23 18:59 06:59 18:59 Weight 35.5 kg 36 kg Other: # Voids 1 - Exam GENERAL EXAM: Alert, weak 87-year-old female, resting comfortably in bed, on 2 L nasal cannula, in no apparent distress. HEAD: Normocephalic. EYES: Normal reaction of pupils, equal size. NOSE: Clear with pink turbinates. THROAT: No erythema or exudates. NECK: No masses, no JVD. CHEST: No chest wall deformity. LUNGS: Equal air entry with basilar crackles right greater than left. CVS: S1 and S2 normal with no audible murmur, regular rhythm. ABDOMEN: No hepatosplenomegaly, normal bowel sounds, no guarding or rigidity. SPINE: No scoliosis or deformity SKIN: No rashes CENTRAL NERVOUS SYSTEM: No focal deficits, tone is normal in all 4 extremities. EXTREMITIES: There is no peripheral edema. No clubbing, no cyanosis. Peripheral pulses are intact. - Labs CBC & Chem 7: 11/19/23 08:02 11/18/23 13:07 Labs: Abnormal Lab Results - Last 24 Hours (Table) 11/18/23 11/18/23 11/19/23 Range/Units 13:07 13:07 08:02 MCHC 31.3 L 30.9 L (32.0-37.0) g/dL RDW 14.9 H (11.5-14.5) % Plt Count 504 H (140-440) X 10*3/uL Immature Gran # 0.06 H (0.00-0.04) X 10*3/uL Carbon Dioxide 20.1 L (21.6-31.8) mmol/L Anion Gap 16.90 H (4.00-12.00) mmol/L BUN 31.6 H (9.0-27.0) mg/dL BUN/Creatinine Ratio 35.11 H (12.00-20.00) Ratio Total Bilirubin <0.2 L (0.3-1.2) mg/dL Alkaline Phosphatase 167 H (41-126) U/L Albumin 3.1 L (3.8-4.9) g/dL Albumin/Globulin Ratio 0.97 L (1.60-3.17) Ratio Microbiology - Last 24 Hours (Table) 11/16/23 02:16 Blood Culture - Preliminary Blood 11/16/23 01:58 Blood Culture - Preliminary Blood Assessment and Plan Assessment: Generalized weakness with nausea and vomiting secondary to acute COVID-19 infection without evidence of CoVID pneumonia Acute on chronic diastolic congestive heart failure, echocardiogram revealed preserved left ventricular systolic function Atrial fibrillation, anticoagulated with Eliquis 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 Benign hypertension Former smoker Hyperlipidemia History of tuberculosis at the age of 22, institutionalized for 9 months History of gastric ulcer repair and PEG tube placement with subsequent removal Poor overall functional performance based on the above-mentioned multiple comorbidities [facility] resident Plan: The patient was seen and evaluated Labs and medications reviewed Continue the current treatment plan Titrate down the FiO2 as tolerated The plan is to return to the [facility] upon discharge I have personally seen and examined the patient, performed the documentation and the assessment and plan as written. Number of minutes spent on the visit: 10.
[2023-11-19 14:49] LABS: ALT 16 U/L (4-34); AST 26 U/L (14-36); African American GFR (CKD) 73 (>60 ml/min/1.73 sqM); Albumin/Globulin Ratio 0.9; Alkaline Phosphatase 154 U/L (38-126); Anion Gap 14 mmol/L; Blood Urea Nitrogen 34 mg/dL (7-17); Calcium 8.9 mg/dL (8.4-10.2); Carbon Dioxide 25 mmol/L (22-30); Chloride 101 mmol/L (98-107); Globulin 3.2 g/dL; Glucose 80 mg/dL (74-99); Non-African American GFR(CKD) 63 (>60 ml/min/1.73 sqM); Potassium 4.3 mmol/L (3.5-5.1); Sodium 140 mmol/L (137-145); Total Bilirubin 0.3 mg/dL (0.2-1.3); Total Protein 6.2 g/dL (6.3-8.2)
--- NOTE | 2023-11-19 16:19 | P.PN ---
Subjective Progress Note Date: 11/19/23 This is Prasanna Collins NP, I'm dictating on behalf of Dr. Tolentino's H&P and A&P. Patient was interviewed and examined. Patient is a pleasant 87-year-old female who we are seeing secondary to atrial fibrillation. Patient currently has a controlled ventricular rate on telemetry. She currently remains on 2 L of supplemental oxygen via nasal cannula secondary to COVID-19 infection. Patient overall is doing okay. GENERAL: Well-appearing, well-nourished and in no acute distress. NECK: Supple without JVD or thyromegaly. LUNGS: Breath sounds clear to auscultation bilaterally. Respiration equal and unlabored. No wheezes, rales or rhonchi. HEART: Regular rate and rhythm without murmurs, rubs or gallops. S1 and S2 heard. EXTREMITIES: Normal range of motion, no edema. No clubbing or cyanosis. Tere pheral pulses intact and strong. VITALS: Temp 97.7, pulse 90, respirations 17, blood pressure 108/53, O2 saturation 98% on 2 L TELEMETRY: Atrial fibrillation with controlled ventricular response LABS: White count 10.1, hemoglobin 12.2, platelets 445, sodium 140, potassium 4.3, BUN 34, creatinine 0.85, calcium 8.9 IMPRESSION: 1. COVID-19 infection 2. New onset atrial fibrillation with controlled ventricular rate 3. Right pleural effusion 4. Mild acute heart failure 5. Hypertension 6. Hyperlipidemia PLAN: Start metoprolol 25 mg extended release today. Decrease amlodipine to 2.5 mg [place] raven. Continue to monitor patient on telemetry. Further recommendations based on patient's clinical course. Objective - Vital Signs Vital signs: Vital Signs Temp 97.3 F L 11/19/23 12:43 Pulse 92 11/19/23 12:43 Resp 15 11/19/23 12:43 BP 124/68 11/19/23 12:43 Pulse Ox 98 11/19/23 12:43 FiO2 Intake & Output 11/18/23 11/19/23 11/19/23 18:59 06:59 18:59 Weight 35.5 kg 36 kg Other: Voiding Method External Catheter # Voids 1 - Labs CBC & Chem 7: 11/19/23 08:02 11/19/23 08:02 Labs: Abnormal Lab Results - Last 24 Hours (Table) 11/18/23 11/18/23 11/19/23 Range/Units 13:07 13:07 08:02 MCHC 31.3 L 30.9 L (32.0-37.0) g/dL RDW 14.9 H (11.5-14.5) % Plt Count 504 H (140-440) X 10*3/uL Immature Gran # 0.06 H (0.00-0.04) X 10*3/uL Carbon Dioxide 20.1 L (21.6-31.8) mmol/L Anion Gap 16.90 H (4.00-12.00) mmol/L BUN 31.6 H (9.0-27.0) mg/dL BUN/Creatinine Ratio 35.11 H (12.00-20.00) Ratio Total Bilirubin <0.2 L (0.3-1.2) mg/dL Alkaline Phosphatase 167 H (41-126) U/L Total Protein (6.3-8.2) g/dL Albumin 3.1 L (3.8-4.9) g/dL Albumin/Globulin Ratio 0.97 L (1.60-3.17) Ratio 11/19/23 Range/Units 08:02 MCHC (32.0-37.0) g/dL RDW (11.5-14.5) % Plt Count (140-440) X 10*3/uL Immature Gran # (0.00-0.04) X 10*3/uL Carbon Dioxide (21.6-31.8) mmol/L Anion Gap (4.00-12.00) mmol/L BUN 34 H (9.0-27.0) mg/dL BUN/Creatinine Ratio (12.00-20.00) Ratio Total Bilirubin (0.3-1.2) mg/dL Alkaline Phosphatase 154 H (41-126) U/L Total Protein 6.2 L (6.3-8.2) g/dL Albumin 3.0 L (3.8-4.9) g/dL Albumin/Globulin Ratio (1.60-3.17) Ratio Microbiology - Last 24 Hours (Table) 11/16/23 02:16 Blood Culture - Preliminary Blood 11/16/23 01:58 Blood Culture - Preliminary Blood
[2023-11-19] MEDS: ATORVASTATIN 10 MG TAB PO SCH (20:35)
[2023-11-19] MEDS: MIRTAZAPINE 15 MG TAB PO SCH (20:35)
--- NOTE | 2023-11-19 21:18 | P.PN ---
Subjective Progress Note Date: 11/18/23 Principal diagnosis: Reason for follow-up is covid19 , leukocytosis Patient is a 87-year-old female with a past medical history significant hypertension hyperlipidemia reflux left lung cancer with history of radiation patient was brought into the hospital for evaluation of nausea and vomiting decreased appetite increasing weakness, patient tested positive for COVID chest x-ray with moderate effusion and pulmonary edema white count mildly elevated. On today's evaluation that is 11/18/2023 the patient remains to be afebrile, the patient is breathing comfortably on 2 L nasal cannula oxygen patient denies chest pain shortness of breath occasional cough no sputum production. Denies having any nausea no vomiting no abdominal pain or any diarrhea. Patient white count is 8.74, creatinine 0.9 blood culture has been negative so far Objective - Vital Signs Vital signs: Vital Signs Temp 97.5 F L 11/18/23 12:37 Pulse 76 11/18/23 12:37 Resp 17 11/18/23 12:37 BP 109/60 11/18/23 12:37 Pulse Ox 94 L 11/18/23 12:37 FiO2 Intake & Output 11/17/23 11/18/23 11/18/23 18:59 06:59 18:59 Output Total 700 300 Balance -700 -300 Weight 40.823 kg 35.5 kg 35.5 kg Output: Urine 700 300 Other: Voiding Method External Catheter # Voids 1 - Exam GENERAL DESCRIPTION: An elderly female lying in bed in no distress RESPIRATORY SYSTEM: Unlabored breathing , decreased breath sound at the base HEART: S1 S2 regular rate and rhythm , ABDOMEN: Soft , no tenderness EXTREMITIES: No edema feet - Labs CBC & Chem 7: 11/19/23 08:02 11/19/23 08:02 Labs: Abnormal Lab Results - Last 24 Hours (Table) 11/17/23 Range/Units 07:16 WBC 10.04 H (4.50-10.00) X 10*3/uL RBC 4.00 L (4.10-5.20) X 10*6/uL Hgb 10.9 L (12.0-15.0) g/dL Hct 36.4 L (37.2-46.3) % MCHC 29.9 L (32.0-37.0) g/dL RDW 14.9 H (11.5-14.5) % Plt Count 498 H (140-440) X 10*3/uL Immature Gran # 0.09 H (0.00-0.04) X 10*3/uL Microbiology - Last 24 Hours (Table) 11/16/23 02:16 Blood Culture - Preliminary Blood 11/16/23 01:58 Blood Culture - Preliminary Blood Assessment and Plan (1) Leukocytosis Current Visit: Yes Status: Acute Code(s): D72.829 - ELEVATED WHITE BLOOD CELL COUNT, UNSPECIFIED SNOMED Code(s): 399863784 (2) COVID-19 Current Visit: Yes Status: Acute Code(s): U07.1 - COVID-19 SNOMED Code(s): 359947710 (3) Pleural effusion Current Visit: Yes Status: Acute Code(s): J90 - PLEURAL EFFUSION, NOT ELSEWHERE CLASSIFIED SNOMED Code(s): 66572264 Plan: 1patient presented to hospital with weakness nausea vomiting not feeling well symptoms are more likely multifactorial in this patient who did tested positive for COVID however no significant hypoxemia and treatment be mostly supportive 2-patient also have elevated white count chest x-ray with moderate right effusion and underlying atelectasis versus pneumonia need to rule out bacterial etiology 3the patient procalcitonin is mildly elevated sputum requested but not collected. 4patient seems to have shown some clinical improvement we will continue patient Rocephin zinc ascorbic acid heparin and continue with supportive care Dictation was produced using [employer] dictation software. please excuse any grammatical, word or spelling errors. Time with Patient: Less than 30
--- NOTE | 2023-11-19 21:20 | P.PN ---
Subjective Progress Note Date: 11/19/23 Principal diagnosis: Reason for follow-up is covid19 , leukocytosis Patient is a 87-year-old female with a past medical history significant hypertension hyperlipidemia reflux left lung cancer with history of radiation patient was brought into the hospital for evaluation of nausea and vomiting decreased appetite increasing weakness, patient tested positive for COVID chest x-ray with moderate effusion and pulmonary edema white count mildly elevated. On today's evaluation that is 11/19/2023 the patient continues to be afebrile patient is breathing comfortably currently requiring 2 L nasal cannula oxygen the patient denies chest pain patient did have occasional cough but no sputum production patient denies any abdominal pain no nausea vomiting or any diarrhea. The patient did have a white count of 10.1 creatinine 0.85 blood culture negative so far Objective - Vital Signs Vital signs: Vital Signs Temp 97.3 F L 11/19/23 12:43 Pulse 92 11/19/23 12:43 Resp 15 11/19/23 12:43 BP 124/68 11/19/23 12:43 Pulse Ox 98 11/19/23 12:43 FiO2 Intake & Output 11/18/23 11/19/23 11/19/23 18:59 06:59 18:59 Weight 35.5 kg 36 kg Other: Voiding Method External Catheter # Voids 1 - Exam GENERAL DESCRIPTION: An elderly female lying in bed in no distress RESPIRATORY SYSTEM: Unlabored breathing , decreased breath sound at the base HEART: S1 S2 regular rate and rhythm , ABDOMEN: Soft , no tenderness EXTREMITIES: No edema feet - Labs CBC & Chem 7: 11/19/23 08:02 11/19/23 08:02 Labs: Abnormal Lab Results - Last 24 Hours (Table) 11/18/23 11/18/23 11/19/23 Range/Units 13:07 13:07 08:02 MCHC 31.3 L 30.9 L (32.0-37.0) g/dL RDW 14.9 H (11.5-14.5) % Plt Count 504 H (140-440) X 10*3/uL Immature Gran # 0.06 H (0.00-0.04) X 10*3/uL Carbon Dioxide 20.1 L (21.6-31.8) mmol/L Anion Gap 16.90 H (4.00-12.00) mmol/L BUN 31.6 H (9.0-27.0) mg/dL BUN/Creatinine Ratio 35.11 H (12.00-20.00) Ratio Total Bilirubin <0.2 L (0.3-1.2) mg/dL Alkaline Phosphatase 167 H (41-126) U/L Albumin 3.1 L (3.8-4.9) g/dL Albumin/Globulin Ratio 0.97 L (1.60-3.17) Ratio Microbiology - Last 24 Hours (Table) 11/16/23 02:16 Blood Culture - Preliminary Blood 11/16/23 01:58 Blood Culture - Preliminary Blood Assessment and Plan (1) Leukocytosis Current Visit: Yes Status: Acute Code(s): D72.829 - ELEVATED WHITE BLOOD CELL COUNT, UNSPECIFIED SNOMED Code(s): 928477736 (2) COVID-19 Current Visit: Yes Status: Acute Code(s): U07.1 - COVID-19 SNOMED Code(s): 105534889 (3) Pleural effusion Current Visit: Yes Status: Acute Code(s): J90 - PLEURAL EFFUSION, NOT ELSEWHERE CLASSIFIED SNOMED Code(s): 07605165 Plan: 1patient presented to hospital with weakness nausea vomiting not feeling well symptoms are more likely multifactorial in this patient who did tested positive for COVID however no significant hypoxemia and treatment be mostly supportive 2-patient also have elevated white count chest x-ray with moderate right effusion and underlying atelectasis versus pneumonia need to rule out bacterial etiology 3the patient procalcitonin is mildly elevated sputum requested but not collected. 4patient has shown clinical improvement we will continue patient Rocephin zinc ascorbic acid Eliquis and monitor clinical course closely Daughter at the bedside multiple questions were answered Dictation was produced using [employer] software. please excuse any grammatical, word or spelling errors.
[2023-11-20] MEDS: traMADol 50 MG TAB PO SCH ×3 (05:47→17:56)
[2023-11-20] MEDS ORDERED: amLODIPine 2.5 MG TAB PO SCH (09:00)
[2023-11-20] MEDS: ZINC SULFATE 220 MG CAP PO SCH (09:07)
[2023-11-20] MEDS: PANTOPRAZOLE 40 MG TABLET PO SCH ×2 (09:07→21:02)
[2023-11-20] MEDS: CHOLECALCIFEROL 10 MCG (400 IU) TABLET PO SCH (09:07)
[2023-11-20] MEDS: DOCUSATE 100 MG CAP PO SCH ×2 (09:07→21:03)
[2023-11-20] MEDS: ONDANSETRON 4 MG TAB PO SCH ×2 (09:07→21:03)
[2023-11-20] MEDS: FUROSEMIDE 40 MG TAB PO SCH (09:08)
[2023-11-20] MEDS: ASCORBIC ACID 500 MG TAB PO SCH (09:08)
[2023-11-20] MEDS: APIXABAN 2.5 MG TABLET PO SCH ×2 (09:09→21:01)
[2023-11-20] MEDS: ALBUTEROL HFA INHALER INHALATION SCH ×3 (09:10→18:33)
[2023-11-20] MEDS: ARTIFICIAL TEARS-HYPROMELLOSE DROPS 15 ML BTL BOTH EYES SCH ×2 (09:10→21:06)
--- NOTE | 2023-11-20 09:45 | P.PN ---
Subjective Progress Note Date: 11/20/23 This is an 87-year-old female patient who presented with complaints of nausea vomiting and weakness over the past 3-4 days. Patient currently resides at [facility]. Upon arrival patient was found to be positive for COVID-19. Influenza and RSV negative. Patient's past medical history of recent fall with pubic ramus fracture, essential hypertension, hyperlipidemia and gastroenteritis. Chest x-ray completed showing moderate right pleural effusion moderate pulmonary edema findings are consistent with CHF. BNP level 4360. Patient started on IV Lasix. Patient started on vitamin C, zinc and vitamin D. At this time pulmonary service service is consulted for pleural effusion, infectious disease services and cardiology services consulted. Patient started on IV antibiotics. Repeat labs ordered. Patient denies chest pain or shortness of breath. Patient does complain of some nausea. Patient denies any urinary burning or frequency On 11/17/2023 patient was seen and examined on the medical floor she is alert and oriented 3 in no apparent distress, she is still complaining of cough and shortness of breath with any activity otherwise she denies any complaints there is no fever or chills no headache or dizziness no chest pain no nausea or vomiting no abdominal pain no diarrhea and no urinary symptoms On 11/18/2023 patient alert and oriented 3. Patient was started on eliquis per cardiology services for new onset atrial fibrillation heart rate remains controlled at this time. Patient remains on IV antibiotics. Infectious disease, cardiology and pulmonary services are following. Current vital signs temp 98.1, heart rate 84, blood pressure 120/55 and pulse ox 99% on 3 L. On 11/19/2023 patient was seen and examined on the medical floor she is alert and oriented 3 in no apparent distress, she is feeling better, she is still complaining of cough and shortness of breath with activity, otherwise she denies any complaints, there is no fever or chills no headache or dizziness no chest pain no nausea or vomiting no abdominal pain no diarrhea and no urinary symptoms. Vital exam reveals a temperature of 97.7 pulse 90 respirations 17 blood pressure 108/53 pulse ox 98% on 2 L nasal cannula white blood count is 10.1 hemoglobin 12.2 platelet count 445 CMP is still pending On 11/20/2023 3 patient is alert and oriented 3. Medications adjusted per cardiology including Lopressor and eliquis. Patient reports improvement with shortness breath. Current vital signs temp 98.1, heart rate 87, respiratory rate 18, blood pressure 122/63 with pulse ox of 100% on 2 L. According to case management note patient will need new prior authorization for return to facility Objective - Vital Signs Vital signs: Vital Signs Temp 97.9 F 11/20/23 08:00 Pulse 74 11/20/23 08:00 Resp 17 11/20/23 08:00 BP 94/55 11/20/23 08:00 Pulse Ox 94 L 11/20/23 08:00 FiO2 Intake & Output 11/19/23 11/20/23 11/20/23 18:59 06:59 18:59 Output Total 150 Balance -150 Weight 39 kg Output: Urine 150 Other: Voiding Method External Catheter External Catheter - Exam Head normocephalic Neck supple Lungs clear to auscultation bilaterally no wheezing or crackles Heart regular rate and rhythm S1-S2, no rub or gallop Abdomen is soft nontender nondistended positive bowel sounds no hepatosplenomegaly Extremities no edema Neuro alert and orientated to 3 - Labs CBC & Chem 7: 11/19/23 08:02 11/19/23 08:02 Labs: Abnormal Lab Results - Last 24 Hours (Table) 11/19/23 Range/Units 08:02 BUN 34 H (7-17) mg/dL Alkaline Phosphatase 154 H (38-126) U/L Total Protein 6.2 L (6.3-8.2) g/dL Albumin 3.0 L (3.5-5.0) g/dL Microbiology - Last 24 Hours (Table) 11/16/23 02:16 Blood Culture - Preliminary Blood 11/16/23 01:58 Blood Culture - Preliminary Blood Assessment and Plan Assessment: nausea vomiting and weakness secondary to COVID-19 infection Pleural effusion. Pulmonary service is consulted Acute hypoxic respiratory failure requiring oxygen use Acute CHF exacerbation. Patient started on IV Lasix. 2-D echo ordered cardiology services New-onset atrial fibrillation. Patient started on eliquis. Heart rate remains controlled at this time Heart remained controlled at this time. Recent fall with pubic ramus fracture History of essential hypertension History of hyperlipidemia History of gastroenteritis Severe protein calorie malnutrition started on protein supplements DVT prophylaxis eliquis. GI prophylaxis Protonix. Patient started on vitamin C zinc and vitamin D Patient seen on IV antibiotics Pulmonary service is consulted for pleural effusion 2-D echo ordered patient on IV Lasix Cardiology service is consulted Infectious disease service is consulted Repeat labs ordered
--- NOTE | 2023-11-20 11:25 | P.PN ---
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 She was brought here to the emergency room last evening for a 3-4 day history of poor appetite, nausea vomiting and weakness. She is residing in [facility]. Chest x-ray revealed moderate right pleural effusion. Cardiomegaly. Moderate pulmonary edema. No pneumothorax. White count 12.7. Hemoglobin 12.4. Platelets 572. Sodium 137. Potassium 4.8. Bicarb 18. BUN 44. Creatinine 1.0. AST 23. ALT 15. ProBNP 4360. Urinalysis clear. She did test positive for COVID-19 infection. He is seen today in consultation in the emergency department. She is sitting up in bed. She is a poor historian. Maintaining O2 saturations in the 90s on 2 L/m per nasal cannula. She's afebrile. Hemodynamically stable. Ultrasound of the chest was ordered and there is a small right pleural effusion of 3.8 cm. No significant fluid on the left. No plans for thoracentesis. His been initiated on bronchodilators. Antibiotics in the form of ceftriaxone. Vitamin supplements. She is on Lasix 40 mg IV daily. No urine output recorded thus fa r. The patient is seen today 11/17/2023 in follow-up on the regular medical floor. She is resting comfortably in bed. Maintaining O2 saturations in the 90s on 3 L/m per nasal cannula. Staff did find her without her oxygen and on room air her saturations were in the 70s. She recovered quickly. She is continued on ceftriaxone. Pro-calcitonin 0.18. White count 10.0. Hemoglobin 10.9. Platele ts 498. Sodium 140 per potassium 4.8. Bicarb 20. BUN 38. Creatinine 0.9. Glucose 67. She did have issues with atrial fibrillation and she is now anticoagulated with Eliquis. She remains on IV diuretics. Diuresing well. Echocardiogram revealed preserved left ventricular systolic function. Mild pulmonary hypertension. The patient is seen today 11/18/2023 in follow-up on the regular medical floor. She is awake and alert in no acute distress. She remains quite weak. She is maintaining O2 saturations in the 90s on 3 L/m per nasal cannula. She's been afebrile. Hemodynamically stable. Follow-up chest x-ray reveals evidence of COPD with decreasing right pleural effusion. Extensive opacity in the right mid and lower lung persist. Patchy left suprahilar airspace slightly improved. Blood culture reveals no growth. No new labs today. She remains on antibiotics and warm ceftriaxone. Anticoagulated with Eliquis. Remains on oral diuretics. Diuresing well. The patient is seen today 11/19/2023 in follow-up on the regular medical floor. She is currently resting comfortably in bed. Currently maintaining good O2 saturations in the high 90s on 2 L/m per nasal cannula. She's afebrile. Hemodynamically stable. White count 10.1. Hemoglobin 12.9. Platelets 445. She is continued on ceftriaxone. Remains on bronchodilators. Remains on oral diuretics. Eliquis for anticoagulation. Continued on vitamin supplements. He has normal saline at 10 MLS per hour. The patient is seen today 11/20/2023 in follow-up on the regular medical floor. She is awake and alert in no acute distress. Resting comfortably in bed. No worsening shortness of breath, cough or congestion. She is maintaining O2 saturations in the 90s on 1 L/m per nasal cannula. No IV fluids. Blood cultu res revealed no growth. No new labs today. She remains on bronchodilators, vitamin supplements, diuretics. Antibiotic in the form of ceftriaxone. Anticoagulated with Eliquis. Objective - Vital Signs Vital signs: Vital Signs Temp 97.9 F 11/20/23 08:00 Pulse 74 11/20/23 08:00 Resp 17 11/20/23 08:00 BP 94/55 11/20/23 08:00 Pulse Ox 94 L 11/20/23 08:00 FiO2 Intake & Output 11/19/23 11/20/23 11/20/23 18:59 06:59 18:59 Output Total 150 Balance -150 Weight 39 kg Output: Urine 150 Other: Voiding Method External Catheter External Catheter - Exam GENERAL EXAM: Alert, weak and frail 87-year-old female, resting in bed, on 1L n michelle cannula, in no apparent distress. HEAD: Normocephalic. EYES: Normal reaction of pupils, equal size. NOSE: Clear with pink turbinates. THROAT: No erythema or exudates. NECK: No masses, no JVD. CHEST: No chest wall deformity. LUNGS: Equal air entry with basilar crackles right greater than left. CVS: S1 and S2 normal with no audible murmur, regular rhythm. ABDOMEN: No hepatosplenomegaly, normal bowel sounds, no guarding or rigidity. SPINE: No scoliosis or deformity SKIN: No rashes CENTRAL NERVOUS SYSTEM: No focal deficits, tone is normal in all 4 extremities. EXTREMITIES: There is no peripheral edema. No clubbing, no cyanosis. Peripheral pulses are intact. - Labs CBC & Chem 7: 11/19/23 08:02 11/19/23 08:02 Labs: Abnormal Lab Results - Last 24 Hours (Table) 11/19/23 Range/Units 08:02 BUN 34 H (7-17) mg/dL Alkaline Phosphatase 154 H (38-126) U/L Total Protein 6.2 L (6.3-8.2) g/dL Albumin 3.0 L (3.5-5.0) g/dL Microbiology - Last 24 Hours (Table) 11/16/23 02:16 Blood Culture - Preliminary Blood 11/16/23 01:58 Blood Culture - Preliminary Blood Assessment and Plan Assessment: Generalized weakness with nausea and vomiting secondary to acute COVID-19 infection without evidence of CoVID pneumonia Acute on chronic diastolic congestive heart failure, echocardiogram revealed preserved left ventricular systolic function Atrial fibrillation, anticoagulated with Eliquis 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 Benign hypertension Former smoker Hyperlipidemia History of 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 Number of minutes spent on the visit: 10.
--- NOTE | 2023-11-20 13:36 | P.PN ---
Subjective Progress Note Date: 11/20/23 This is Prasanna Collins NP, I'm dictating on behalf of Dr. Tolentino's H&P and A&P. Patient was interviewed and examined. Patient is a pleasant 87-year-old female who presented to the hospital with complaints of weakness, cough, and shortness of breath, and with subsequent found to have COVID-19 infection. Patient was also in A. fib with RVR. Patient today reports that she's feeling much better. Her heart rate is much better controlled today, as the patient's RVR has resolved and she is currently in a trial fibrillation with controlled ventricular response on telemetry. Patient's blood pressures are running slightly low. Patient had limited interview/exam secondary to active Covid infection. VITALS: Temp 97.9, pulse 74, respirations 17, blood pressure 94/55, O2 saturation 94% on 2 L TELEMETRY: Atrial fibrillation with controlled ventricular response LABS: No new labs since 11/19/2023 IMPRESSION: 1. COVID-19 infection 2. New onset atrial fibrillation with controlled ventricular rate 3. Right pleural effusion 4. Mild acute heart failure 5. Hypertension 6. Hyperlipidemia PLAN: Patient's blood pressures continued to remain somewhat low. Discontinue amlodipine. Continue metoprolol 25 mg ER. Heart rates are better controlled at this time. No further recommendations from a cardiology standpoint. Thank you for allowing us to participate in the care of this patient. Objective - Vital Signs Vital signs: Vital Signs Temp 97.9 F 11/20/23 08:00 Pulse 74 11/20/23 08:00 Resp 17 11/20/23 08:00 BP 94/55 11/20/23 08:00 Pulse Ox 94 L 11/20/23 08:00 FiO2 Intake & Output 11/19/23 11/20/23 11/20/23 18:59 06:59 18:59 Output Total 150 Balance -150 Weight 39 kg Output: Urine 150 Other: Voiding Method External Catheter External Catheter External Catheter - Labs CBC & Chem 7: 11/19/23 08:02 11/19/23 08:02 Labs: Abnormal Lab Results - Last 24 Hours (Table) 11/19/23 Range/Units 08:02 BUN 34 H (7-17) mg/dL Alkaline Phosphatase 154 H (38-126) U/L Total Protein 6.2 L (6.3-8.2) g/dL Albumin 3.0 L (3.5-5.0) g/dL Microbiology - Last 24 Hours (Table) 11/16/23 02:16 Blood Culture - Preliminary Blood 11/16/23 01:58 Blood Culture - Preliminary Blood
[2023-11-20] MEDS: METOPROLOL SUCCINATE (ER) 25 MG TAB.ER.24H PO SCH (15:36)
[2023-11-20] MEDS: MIRTAZAPINE 15 MG TAB PO SCH (21:02)
[2023-11-20] MEDS: ATORVASTATIN 10 MG TAB PO SCH (21:03)
[2023-11-21] MEDS: traMADol 50 MG TAB PO SCH ×5 (01:32→23:54)
[2023-11-21] MEDS: ONDANSETRON 4 MG TAB PO SCH ×2 (08:16→20:26)
[2023-11-21] MEDS: METOPROLOL SUCCINATE (ER) 25 MG TAB.ER.24H PO SCH (08:16)
[2023-11-21] MEDS: CHOLECALCIFEROL 10 MCG (400 IU) TABLET PO SCH (08:16)
[2023-11-21] MEDS: DOCUSATE 100 MG CAP PO SCH ×2 (08:16→20:26)
[2023-11-21] MEDS: ASCORBIC ACID 500 MG TAB PO SCH (08:16)
[2023-11-21] MEDS: APIXABAN 2.5 MG TABLET PO SCH ×2 (08:16→20:26)
[2023-11-21] MEDS: FUROSEMIDE 40 MG TAB PO SCH (08:16)
[2023-11-21] MEDS: ZINC SULFATE 220 MG CAP PO SCH (08:16)
[2023-11-21] MEDS: PANTOPRAZOLE 40 MG TABLET PO SCH ×2 (08:16→20:26)
[2023-11-21] MEDS: ARTIFICIAL TEARS-HYPROMELLOSE DROPS 15 ML BTL BOTH EYES SCH ×2 (08:17→20:26)
[2023-11-21] MEDS: ALBUTEROL HFA INHALER INHALATION SCH ×3 (09:25→22:33)
--- NOTE | 2023-11-21 11:37 | P.PN ---
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 She was brought here to the emergency room last evening for a 3-4 day history of poor appetite, nausea vomiting and weakness. She is residing in [facility]. Chest x-ray revealed moderate right pleural effusion. Cardiomegaly. Moderate pulmonary edema. No pneumothorax. White count 12.7. Hemoglobin 12.4. Platelets 572. Sodium 137. Potassium 4.8. Bicarb 18. BUN 44. Creatinine 1.0. AST 23. ALT 15. ProBNP 4360. Urinalysis clear. She did test positive for COVID-19 infection. He is seen today in consultation in the emergency department. She is sitting up in bed. She is a poor historian. Maintaining O2 saturations in the 90s on 2 L/m per nasal cannula. She's afebrile. Hemodynamically stable. Ultrasound of the chest was ordered and there is a small right pleural effusion of 3.8 cm. No significant fluid on the left. No plans for thoracentesis. His been initiated on bronchodilators. Antibiotics in the form of ceftriaxone. Vitamin supplements. She is on Lasix 40 mg IV daily. No urine output recorded thus fa r. The patient is seen today 11/17/2023 in follow-up on the regular medical floor. She is resting comfortably in bed. Maintaining O2 saturations in the 90s on 3 L/m per nasal cannula. Staff did find her without her oxygen and on room air her saturations were in the 70s. She recovered quickly. She is continued on ceftriaxone. Pro-calcitonin 0.18. White count 10.0. Hemoglobin 10.9. Platele ts 498. Sodium 140 per potassium 4.8. Bicarb 20. BUN 38. Creatinine 0.9. Glucose 67. She did have issues with atrial fibrillation and she is now anticoagulated with Eliquis. She remains on IV diuretics. Diuresing well. Echocardiogram revealed preserved left ventricular systolic function. Mild pulmonary hypertension. The patient is seen today 11/18/2023 in follow-up on the regular medical floor. She is awake and alert in no acute distress. She remains quite weak. She is maintaining O2 saturations in the 90s on 3 L/m per nasal cannula. She's been afebrile. Hemodynamically stable. Follow-up chest x-ray reveals evidence of COPD with decreasing right pleural effusion. Extensive opacity in the right mid and lower lung persist. Patchy left suprahilar airspace slightly improved. Blood culture reveals no growth. No new labs today. She remains on antibiotics and warm ceftriaxone. Anticoagulated with Eliquis. Remains on oral diuretics. Diuresing well. The patient is seen today 11/19/2023 in follow-up on the regular medical floor. She is currently resting comfortably in bed. Currently maintaining good O2 saturations in the high 90s on 2 L/m per nasal cannula. She's afebrile. Hemodynamically stable. White count 10.1. Hemoglobin 12.9. Platelets 445. She is continued on ceftriaxone. Remains on bronchodilators. Remains on oral diuretics. Eliquis for anticoagulation. Continued on vitamin supplements. He has normal saline at 10 MLS per hour. The patient is seen today 11/20/2023 in follow-up on the regular medical floor. She is awake and alert in no acute distress. Resting comfortably in bed. No worsening shortness of breath, cough or congestion. She is maintaining O2 saturations in the 90s on 1 L/m per nasal cannula. No IV fluids. Blood cultu res revealed no growth. No new labs today. She remains on bronchodilators, vitamin supplements, diuretics. Antibiotic in the form of ceftriaxone. Anticoagulated with Eliquis. The patient is seen today 11/21/2023 in follow-up on the regular medical floor. She is currently resting comfortably in bed. Awake and alert in no acute distress. She is maintaining O2 saturations in the 90s on 1 L/m per nasal cannula. No IV fluids. Cultures revealed no growth. No new labs today. She remains on bronchodilators, vitamin supplements, diuretics. Antibiotic in the form of ceftriaxone. Anticoagulated with Eliquis. Objective - Vital Signs Vital signs: Vital Signs Temp 98.3 F 11/21/23 07:56 Pulse 92 11/21/23 07:56 Resp 19 11/21/23 07:56 BP 103/65 11/21/23 07:56 Pulse Ox 99 11/21/23 09:25 FiO2 Intake & Output 1211/21/23 11/21/23 18:59 06:59 18:59 Output Total 650 350 Balance -650 -350 Weight 40.5 kg Output: Urine 650 350 Other: Voiding Method External Catheter External Catheter - Exam GENERAL EXAM: Alert, weak and frail 87-year-old female, on 1L nasal cannula, in no apparent distress. HEAD: Normocephalic. EYES: Normal reaction of pupils, equal size. NOSE: Clear with pink turbinates. THROAT: No erythema or exudates. NECK: No masses, no JVD. CHEST: No chest wall deformity. LUNGS: Equal air entry with basilar crackles right greater than left. CVS: S1 and S2 normal with no audible murmur, regular rhythm. ABDOMEN: No hepatosplenomegaly, normal bowel sounds, no guarding or rigidity. SPINE: No scoliosis or deformity SKIN: No rashes CENTRAL NERVOUS SYSTEM: No focal deficits, tone is normal in all 4 extremities. EXTREMITIES: There is no peripheral edema. No clubbing, no cyanosis. Peripheral pulses are intact. 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 Benign hypertension Former smoker Hyperlipidemia History of tuberculosis at the age of 22, institutionalized for 9 months History of gastric ulcer repair and PEG tube placement with subsequent removal Poor overall functional performance based on the above-mentioned multiple comorbidities group home resident Plan: The patient was seen and evaluated Medications reviewed Remains stable and on 1 L of nasal cannula Continue the current treatment plan We will continue to follow The plan is for [facility] versus inpatient rehab upon discharge I have personally seen and examined the patient, performed the documentation and the assessment and plan as written. Number of minutes spent on the visit: 10.
--- NOTE | 2023-11-21 12:07 | P.PN ---
Subjective Progress Note Date: 11/21/23 This is an 87-year-old female patient who presented with complaints of nausea vomiting and weakness over the past 3-4 days. Patient currently resides at [facility]. Upon arrival patient was found to be positive for COVID-19. Influenza and RSV negative. Patient's past medical history of recent fall with pubic ramus fracture, essential hypertension, hyperlipidemia and gastroenteritis. Chest x-ray completed showing moderate right pleural effusion moderate pulmonary edema findings are consistent with CHF. BNP level 4360. Patient started on IV Lasix. Patient started on vitamin C, zinc and vitamin D. At this time pulmonary service service is consulted for pleural effusion, infectious disease services and cardiology services consulted. Patient started on IV antibiotics. Repeat labs ordered. Patient denies chest pain or shortness of breath. Patient does complain of some nausea. Patient denies any urinary burning or frequency On 11/17/2023 patient was seen and examined on the medical floor she is alert and oriented 3 in no apparent distress, she is still complaining of cough and shortness of breath with any activity otherwise she denies any complaints there is no fever or chills no headache or dizziness no chest pain no nausea or vomiting no abdominal pain no diarrhea and no urinary symptoms On 11/18/2023 patient alert and oriented 3. Patient was started on eliquis per cardiology services for new onset atrial fibrillation heart rate remains controlled at this time. Patient remains on IV antibiotics. Infectious disease, cardiology and pulmonary services are following. Current vital signs temp 98.1, heart rate 84, blood pressure 120/55 and pulse ox 99% on 3 L. On 11/19/2023 patient was seen and examined on the medical floor she is alert and oriented 3 in no apparent distress, she is feeling better, she is still complaining of cough and shortness of breath with activity, otherwise she denies any complaints, there is no fever or chills no headache or dizziness no chest pain no nausea or vomiting no abdominal pain no diarrhea and no urinary symptoms. Vital exam reveals a temperature of 97.7 pulse 90 respirations 17 blood pressure 108/53 pulse ox 98% on 2 L nasal cannula white blood count is 10.1 hemoglobin 12.2 platelet count 445 CMP is still pending On 11/20/2023 patient is alert and oriented 3. Medications adjusted per cardiology including Lopressor and eliquis. Patient reports improvement with shortness breath. Current vital signs temp 98.1, heart rate 87, respiratory rate 18, blood pressure 122/63 with pulse ox of 100% on 2 L. According to case management note patient will need new prior authorization for return to facility. On 11/21/2023 patient was seen and examined on the medical floor, she is alert and oriented 3 in no apparent distress, she is sitting up in a chair, she is complaining of generalized weakness and poor oral intake, she is still complaining of cough and shortness of breath otherwise she denies any complaints there is no fever or chills no headache or dizziness no chest pain no nausea or vomiting no abdominal pain no diarrhea and no urinary symptoms Objective - Vital Signs Vital signs: Vital Signs Temp 98.3 F 11/21/23 07:56 Pulse 92 11/21/23 07:56 Resp 19 11/21/23 07:56 BP 103/65 11/21/23 07:56 Pulse Ox 99 11/21/23 09:25 FiO2 Intake & Output 11/20/23 11/21/23 11/21/23 18:59 06:59 18:59 Output Total 650 350 Balance -650 -350 Weight 40.5 kg Output: Urine 650 350 Other: Voiding Method External Catheter External Catheter - Exam Head normocephalic Neck supple Lungs clear to auscultation bilaterally no wheezing or crackles Heart regular rate and rhythm S1-S2, no rub or gallop Abdomen is soft nontender nondistended positive bowel sounds no hepatosplenomegaly Extremities no edema Neuro alert and orientated to 3 - Labs CBC & Chem 7: 11/19/23 08:02 11/19/23 08:02 Assessment and Plan Assessment: nausea vomiting and weakness secondary to COVID-19 infection Pleural effusion. Pulmonary service is consulted Acute hypoxic respiratory failure requiring oxygen use Acute CHF exacerbation. Patient started on IV Lasix. 2-D echo ordered cardiology services New-onset atrial fibrillation. Patient started on eliquis. Heart rate remains controlled at this time Heart remained controlled at this time. Recent fall with pubic ramus fracture History of essential hypertension History of hyperlipidemia History of gastroenteritis Severe protein calorie malnutrition started on protein supplements DVT prophylaxis eliquis. GI prophylaxis Protonix. Patient started on vitamin C zinc and vitamin D Patient seen on IV antibiotics Pulmonary service is consulted for pleural effusion 2-D echo ordered patient on IV Lasix Cardiology service is consulted Infectious disease service is consulted Repeat labs ordered
[2023-11-21] MEDS: MEGESTROL 400 MG/10 ML CUP PO SCH (12:59)
--- NOTE | 2023-11-21 13:17 | P.PN ---
Subjective Progress Note Date: 11/20/23 Principal diagnosis: Reason for follow-up is covid19 , leukocytosis Patient is a 87-year-old female with a past medical history significant hypertension hyperlipidemia reflux left lung cancer with history of radiation patient was brought into the hospital for evaluation of nausea and vomiting decreased appetite increasing weakness, patient tested positive for COVID chest x-ray with moderate effusion and pulmonary edema white count mildly elevated. On today's evaluation that is 11/20/2023 the patient remains to be afebrile patient is breathing comfortably on 1 L nasal cannula oxygen patient denies having any chest pain, no worsening cough or sputum production no nausea no vomiting no diarrhea. Patient white count of 10.1 and creatinine of 0.85 as of yesterday no lab draw today Objective - Vital Signs Vital signs: Vital Signs Temp 97.9 F 11/20/23 08:00 Pulse 74 11/20/23 08:00 Resp 17 11/20/23 08:00 BP 94/55 11/20/23 08:00 Pulse Ox 94 L 11/20/23 08:00 FiO2 Intake & Output 11/19/23 11/20/23 11/20/23 18:59 06:59 18:59 Output Total 150 Balance -150 Weight 39 kg Output: Urine 150 Other: Voiding Method External Catheter External Catheter External Catheter - Exam GENERAL DESCRIPTION: An elderly female lying in bed in no distress RESPIRATORY SYSTEM: Unlabored breathing , decreased breath sound at the base HEART: S1 S2 regular rate and rhythm , ABDOMEN: Soft , no tenderness EXTREMITIES: No edema feet - Labs CBC & Chem 7: 11/19/23 08:02 11/19/23 08:02 Labs: Abnormal Lab Results - Last 24 Hours (Table) 11/19/23 Range/Units 08:02 BUN 34 H (7-17) mg/dL Alkaline Phosphatase 154 H (38-126) U/L Total Protein 6.2 L (6.3-8.2) g/dL Albumin 3.0 L (3.5-5.0) g/dL Microbiology - Last 24 Hours (Table) 11/16/23 02:16 Blood Culture - Preliminary Blood 11/16/23 01:58 Blood Culture - Preliminary Blood Assessment and Plan (1) Leukocytosis Current Visit: Yes Status: Acute Code(s): D72.829 - ELEVATED WHITE BLOOD CELL COUNT, UNSPECIFIED SNOMED Code(s): 348365030 (2) COVID-19 Current Visit: Yes Status: Acute Code(s): U07.1 - COVID-19 SNOMED Code(s): 486222985 (3) Pleural effusion Current Visit: Yes Status: Acute Code(s): J90 - PLEURAL EFFUSION, NOT ELSEWHERE CLASSIFIED SNOMED Code(s): 82282736 Plan: 1patient presented to hospital with weakness nausea vomiting not feeling well symptoms are more likely multifactorial in this patient who did tested positive for COVID however no significant hypoxemia and treatment be mostly supportive, Patient to continue with the Zinc ascorbic acid Eliquis and continue with supportive care 2patient was also noticed to have elevated white count chest x-ray with moderate right effusion concerning for underlying pneumonia, patient had mild elevated procalcitonin patient seem to be doing well on Rocephin to continue and monitor clinical course closely Dictation was produced using [employer] dictation software. please excuse any grammatical, word or spelling errors. Time with Patient: Less than 30
--- NOTE | 2023-11-21 13:18 | P.PN ---
Subjective Progress Note Date: 11/21/23 Principal diagnosis: Reason for follow-up is covid19 , leukocytosis Patient is a 87-year-old female with a past medical history significant hypertension hyperlipidemia reflux left lung cancer with history of radiation patient was brought into the hospital for evaluation of nausea and vomiting decreased appetite increasing weakness, patient tested positive for COVID chest x-ray with moderate effusion and pulmonary edema white count mildly elevated. On today's evaluation that is 11/21/2023 the patient denies having any fever or any chills the patient is breathing comfortably currently on 1 L nasal cannula oxygen patient complaining of noticed in the mouth but no other symptoms no chest pain occasional cough no nausea vomiting and no diarrhea. Blood culture remains to be negative no sputum was collected no lab draw today Objective - Vital Signs Vital signs: Vital Signs Temp 98.3 F 11/21/23 07:56 Pulse 92 11/21/23 07:56 Resp 19 11/21/23 07:56 BP 103/65 11/21/23 07:56 Pulse Ox 99 11/21/23 09:25 FiO2 Intake & Output 11/20/23 11/21/23 11/21/23 18:59 06:59 18:59 Output Total 650 350 Balance -650 -350 Weight 40.5 kg Output: Urine 650 350 Other: Voiding Method External Catheter External Catheter - Exam GENERAL DESCRIPTION: An elderly female lying in bed in no distress RESPIRATORY SYSTEM: Unlabored breathing , decreased breath sound at the base HEART: S1 S2 regular rate and rhythm , ABDOMEN: Soft , no tenderness EXTREMITIES: No edema feet - Labs CBC & Chem 7: 11/19/23 08:02 11/19/23 08:02 Labs: Microbiology - Last 24 Hours (Table) 11/16/23 02:16 Blood Culture - Final Blood 11/16/23 01:58 Blood Culture - Final Blood Assessment and Plan (1) Leukocytosis Current Visit: Yes Status: Acute Code(s): D72.829 - ELEVATED WHITE BLOOD CELL COUNT, UNSPECIFIED SNOMED Code(s): 460795781 (2) COVID-19 Current Visit: Yes Status: Acute Code(s): U07.1 - COVID-19 SNOMED Code(s): 449325087 (3) Pleural effusion Current Visit: Yes Status: Acute Code(s): J90 - PLEURAL EFFUSION, NOT ELSEWHERE CLASSIFIED SNOMED Code(s): 26408510 Plan: 1patient presented to hospital with weakness nausea vomiting not feeling well symptoms are more likely multifactorial in this patient who did tested positive for COVID however no significant hypoxemia and treatment be mostly supportive, Patient to continue with the Zinc ascorbic acid Eliquis and continue with supportive care 2patient was also noticed to have elevated white count chest x-ray with moderate right effusion concerning for underlying pneumonia, patient had mild elevated procalcitonin 3- patient slowly clinically improving, Rocephin to continue and monitor clinical course closely Dictation was produced using [employer] dictation software. please excuse any grammatical, word or spelling errors.
[2023-11-21] MEDS: ATORVASTATIN 10 MG TAB PO SCH (20:26)
[2023-11-21] MEDS: MIRTAZAPINE 15 MG TAB PO SCH (20:26)
[2023-11-22] MEDS: traMADol 50 MG TAB PO SCH ×4 (05:05→18:34)
[2023-11-22] MEDS: ALBUTEROL HFA INHALER INHALATION SCH ×3 (07:40→20:29)
[2023-11-22] MEDS: APIXABAN 2.5 MG TABLET PO SCH ×2 (08:20→20:08)
[2023-11-22] MEDS: DOCUSATE 100 MG CAP PO SCH ×2 (08:21→20:08)
[2023-11-22] MEDS: METOPROLOL SUCCINATE (ER) 25 MG TAB.ER.24H PO SCH (08:21)
[2023-11-22] MEDS: ONDANSETRON 4 MG TAB PO SCH ×2 (08:21→20:08)
[2023-11-22] MEDS: MEGESTROL 400 MG/10 ML CUP PO SCH (08:21)
[2023-11-22] MEDS: FUROSEMIDE 40 MG TAB PO SCH (08:21)
[2023-11-22] MEDS: CHOLECALCIFEROL 10 MCG (400 IU) TABLET PO SCH (08:21)
[2023-11-22] MEDS: ASCORBIC ACID 500 MG TAB PO SCH (08:21)
[2023-11-22] MEDS: PANTOPRAZOLE 40 MG TABLET PO SCH ×2 (08:21→20:08)
[2023-11-22] MEDS: ZINC SULFATE 220 MG CAP PO SCH (08:21)
[2023-11-22] MEDS: ARTIFICIAL TEARS-HYPROMELLOSE DROPS 15 ML BTL BOTH EYES SCH ×2 (08:22→20:08)
[2023-11-22 10:45] LABS: Basophils # (A) 0.07 X 10*3/uL (0.00-0.10); Basophils % (A) 0.7 %; Eosinophils # (A) 0.27 X 10*3/uL (0.04-0.35); Eosinophils % (A) 2.5 %; HCT 36.3 % (37.2-46.3); HGB 11.3 g/dL (12.0-15.0); Lymphocytes % (A) 23.3 %; MCH 27.2 pg (27.0-32.0); MCHC 31.1 g/dL (32.0-37.0); MCV 87.3 FL (80.0-97.0); Mean Platelet Volume 10.5 FL (9.5-12.2); Monocytes # (A) 0.88 X 10*3/uL (0.20-1.00); Monocytes % (A) 8.2 %; NRBC Per 100 WBC 0 X 10*3/uL (0.00-0.01); Neutrophils # (A) 6.94 X 10*3/uL (1.80-7.70); Neutrophils % (A) 64.6 %; Platelet Count 410 X 10*3/uL (140-440); RBC 4.16 X 10*6/uL (4.10-5.20); WBC 10.74 X 10*3/uL (4.50-10.00)
--- NOTE | 2023-11-22 10:50 | P.PN ---
Subjective Progress Note Date: 11/22/23 This is an 87-year-old female patient who presented with complaints of nausea vomiting and weakness over the past 3-4 days. Patient currently resides at [facility]. Upon arrival patient was found to be positive for COVID-19. Influenza and RSV negative. Patient's past medical history of recent fall with pubic ramus fracture, essential hypertension, hyperlipidemia and gastroenteritis. Chest x-ray completed showing moderate right pleural effusion moderate pulmonary edema findings are consistent with CHF. BNP level 4360. Patient started on IV Lasix. Patient started on vitamin C, zinc and vitamin D. At this time pulmonary service service is consulted for pleural effusion, infectious disease services and cardiology services consulted. Patient started on IV antibiotics. Repeat labs ordered. Patient denies chest pain or shortness of breath. Patient does complain of some nausea. Patient denies any urinary burning or frequency On 11/17/2023 patient was seen and examined on the medical floor she is alert and oriented 3 in no apparent distress, she is still complaining of cough and shortness of breath with any activity otherwise she denies any complaints there is no fever or chills no headache or dizziness no chest pain no nausea or vomiting no abdominal pain no diarrhea and no urinary symptoms On 11/18/2023 patient alert and oriented 3. Patient was started on eliquis per cardiology services for new onset atrial fibrillation heart rate remains controlled at this time. Patient remains on IV antibiotics. Infectious disease, cardiology and pulmonary services are following. Current vital signs temp 98.1, heart rate 84, blood pressure 120/55 and pulse ox 99% on 3 L. On 11/19/2023 patient was seen and examined on the medical floor she is alert and oriented 3 in no apparent distress, she is feeling better, she is still complaining of cough and shortness of breath with activity, otherwise she denies any complaints, there is no fever or chills no headache or dizziness no chest pain no nausea or vomiting no abdominal pain no diarrhea and no urinary symptoms. Vital exam reveals a temperature of 97.7 pulse 90 respirations 17 blood pressure 108/53 pulse ox 98% on 2 L nasal cannula white blood count is 10.1 hemoglobin 12.2 platelet count 445 CMP is still pending On 11/20/2023 patient is alert and oriented 3. Medications adjusted per cardiology including Lopressor and eliquis. Patient reports improvement with shortness breath. Current vital signs temp 98.1, heart rate 87, respiratory rate 18, blood pressure 122/63 with pulse ox of 100% on 2 L. According to case management note patient will need new prior authorization for return to facility. On 11/21/2023 patient was seen and examined on the medical floor, she is alert and oriented 3 in no apparent distress, she is sitting up in a chair, she is complaining of generalized weakness and poor oral intake, she is still complaining of cough and shortness of breath otherwise she denies any complaints there is no fever or chills no headache or dizziness no chest pain no nausea or vomiting no abdominal pain no diarrhea and no urinary symptoms On 11/22/2023 patient alert and oriented 3 currently sitting up in bed. Discussed case with case management awaiting insurance authorization for return to ECF facility. Likely to be tomorrow 11/23/2023. At this time patient denies chest pain or shortness of breath. Patient denies nausea vomiting or diarrhea. Patient denies any urinary burning or frequency Objective - Vital Signs Vital signs: Vital Signs Temp 98.2 F 11/22/23 08:25 Pulse 82 11/22/23 08:25 Resp 18 11/22/23 08:25 BP 112/48 11/22/23 08:25 Pulse Ox 96 11/22/23 08:25 FiO2 Intake & Output 11/21/23 11/22/23 11/22/23 18:59 06:59 18:59 Output Total 400 Balance -400 Weight 39 kg Output: Urine 400 Other: Voiding Method External Catheter - Exam Head normocephalic Neck supple Lungs clear to auscultation bilaterally no wheezing or crackles Heart regular rate and rhythm S1-S2, no rub or gallop Abdomen is soft nontender nondistended positive bowel sounds no hepatosplenomegaly Extremities no edema Neuro alert and orientated to 3 - Labs CBC & Chem 7: 11/22/23 07:07 11/19/23 08:02 Labs: Abnormal Lab Results - Last 24 Hours (Table) 11/22/23 Range/Units 07:07 WBC 10.74 H (4.50-10.00) X 10*3/uL Hgb 11.3 L (12.0-15.0) g/dL Hct 36.3 L (37.2-46.3) % MCHC 31.1 L (32.0-37.0) g/dL RDW 15.0 H (11.5-14.5) % Immature Gran # 0.08 H (0.00-0.04) X 10*3/uL Microbiology - Last 24 Hours (Table) 11/16/23 02:16 Blood Culture - Final Blood 11/16/23 01:58 Blood Culture - Final Blood Assessment and Plan Assessment: nausea vomiting and weakness secondary to COVID-19 infection Pleural effusion. Pulmonary service is consulted Acute hypoxic respiratory failure requiring oxygen use Acute CHF exacerbation. Patient started on IV Lasix. 2-D echo ordered cardiology services New-onset atrial fibrillation. Patient started on eliquis. Heart rate remains controlled at this time Heart remained controlled at this time. Recent fall with pubic ramus fracture History of essential hypertension History of hyperlipidemia History of gastroenteritis Severe protein calorie malnutrition started on protein supplements DVT prophylaxis eliquis. GI prophylaxis Protonix. Patient started on vitamin C zinc and vitamin D Patient seen on IV antibiotics Pulmonary service is consulted for pleural effusion 2-D echo ordered patient on IV Lasix Cardiology service is consulted Infectious disease service is consulted Repeat labs ordered
[2023-11-22 10:53] LABS: ALT 13 U/L (8-44); AST 21 U/L (13-35); Albumin 2.8 g/dL (3.8-4.9); Albumin/Globulin Ratio 1.08 Ratio (1.60-3.17); Alkaline Phosphatase 121 U/L (41-126); BUN/Creat Ratio 28.89 Ratio (12.00-20.00); Calcium 8.7 mg/dL (8.7-10.3); Carbon Dioxide 28.8 mmol/L (21.6-31.8); Chloride 97 mmol/L (96-109); Globulin 2.6 g/dL (1.6-3.3); Glucose 87 mg/dL (70-110); Sodium 139 mmol/L (135-145); Total Bilirubin 0.2 mg/dL (0.3-1.2); Total Protein 5.4 g/dL (6.2-8.2)
--- NOTE | 2023-11-22 12:37 | P.PN ---
Subjective Progress Note Date: 11/22/23 Principal diagnosis: Reason for follow-up is covid19 , leukocytosis Patient is a 87-year-old female with a past medical history significant hypertension hyperlipidemia reflux left lung cancer with history of radiation patient was brought into the hospital for evaluation of nausea and vomiting decreased appetite increasing weakness, patient tested positive for COVID chest x-ray with moderate effusion and pulmonary edema white count mildly elevated. On today's evaluation that is 11/22/2023 patient remains to be afebrile, the patient is breathing comfortably on room air patient denies having any chest pain shortness of breath or any worsening cough no nausea vomiting no abdominal pain vomiting diarrhea. Patient vital of 10.74, creatinine 0.9 Objective - Vital Signs Vital signs: Vital Signs Temp 98.2 F 11/22/23 08:25 Pulse 82 11/22/23 08:25 Resp 18 11/22/23 08:25 BP 112/48 11/22/23 08:25 Pulse Ox 96 11/22/23 08:25 FiO2 Intake & Output 11/21/23 11/22/23 11/22/23 18:59 06:59 18:59 Output Total 400 350 Balance -400 -350 Weight 39 kg Output: Urine 400 350 Other: Voiding Method External Catheter External Catheter - Exam GENERAL DESCRIPTION: An elderly female lying in bed in no distress RESPIRATORY SYSTEM: Unlabored breathing , decreased breath sound at the base HEART: S1 S2 regular rate and rhythm , ABDOMEN: Soft , no tenderness EXTREMITIES: No edema feet - Labs CBC & Chem 7: 11/22/23 07:07 11/22/23 07:07 Labs: Abnormal Lab Results - Last 24 Hours (Table) 11/22/23 11/22/23 Range/Units 07:07 07:07 WBC 10.74 H (4.50-10.00) X 10*3/uL Hgb 11.3 L (12.0-15.0) g/dL Hct 36.3 L (37.2-46.3) % MCHC 31.1 L (32.0-37.0) g/dL RDW 15.0 H (11.5-14.5) % Immature Gran # 0.08 H (0.00-0.04) X 10*3/uL Anion Gap 13.20 H (4.00-12.00) mmol/L BUN/Creatinine Ratio 28.89 H (12.00-20.00) Ratio Total Bilirubin 0.2 L (0.3-1.2) mg/dL Total Protein 5.4 L (6.2-8.2) g/dL Albumin 2.8 L (3.8-4.9) g/dL Albumin/Globulin Ratio 1.08 L (1.60-3.17) Ratio Microbiology - Last 24 Hours (Table) 11/16/23 02:16 Blood Culture - Final Blood 11/16/23 01:58 Blood Culture - Final Blood Assessment and Plan (1) Leukocytosis Current Visit: Yes Status: Acute Code(s): D72.829 - ELEVATED WHITE BLOOD CELL COUNT, UNSPECIFIED SNOMED Code(s): 642698727 (2) COVID-19 Current Visit: Yes Status: Acute Code(s): U07.1 - COVID-19 SNOMED Code(s): 991224944 (3) Pleural effusion Current Visit: Yes Status: Acute Code(s): J90 - PLEURAL EFFUSION, NOT ELSEWHERE CLASSIFIED SNOMED Code(s): 98314364 Plan: 1patient presented to hospital with weakness nausea vomiting not feeling well symptoms are more likely multifactorial in this patient who did tested positive for COVID however no significant hypoxemia and treatment be mostly supportive, Patient to continue with the Zinc ascorbic acid Eliquis and continue with supportive care 2patient was also noticed to have elevated white count chest x-ray with moderate right effusion concerning for underlying pneumonia, patient had mild elevated procalcitonin 3patient has shown clinical improvement patient is currently off supplemental oxygen, patient on Rocephin consider short course of oral Ceftin on discharge question concern answered Dictation was produced using [employer] software. please excuse any grammatical, word or spelling errors.
--- NOTE | 2023-11-22 17:55 | P.CONS ---
History of Present Illness - Reason for Consult Consult date: 11/22/23 rehab recommendations - Chief Complaint debility - History of Present Illness Patricia Oh is a 87 y.o. female , right handed, who (prior to 09/2023 hospitalization) lived in a first floor apartment with [address], with her son and daughter in law. Prior to admission, she was assisted at an [facility] with basic/advanced ADLs. Current driving: no. Transportation by: son, family. Retired: yes. Support system: family, son She was admitted to [facility] 10/1923. She presented to the ED with complaints of nausea, vomiting, lack of appetite and weakness for the 3 to 4 days prior to arrival. Patient arrived from [facility] in [place]. Chest x-ray revealed a right-sided pleural effusion. Patient tested positive for COVID. Patient was found to have new onset A-fib and was started on Eliquis. Cultures revealed no growth. Of note, 10/20/2023 patient was found to have a superior and inferior pubic rami fracture. She was made TDWB RLE with walker as tolerated with no surgical intervention required. Patient was discharged to [facility] for rehab 11/22/23: patient found in bed with HOB elevated resting. patient denies CP, SOB and abdominal pain. Patient denies concerns with bowels and bladder. She denies pain. Patient denies concerns at this time. She reports plan to return to [facility] 11/23. PM&R consulted for rehab recommendations. 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22, was in a sanatorium for 9 months History of Any Multi-Drug Resistant Organisms: None Reported Past Surgical History: Cholecystectomy, Tonsillectomy Additional Past Surgical History / Comment(s): stomach ulcer repair about 25 years ago, was on life support and a feeding tube, has midline repair scar; also thyroid tumor, rt hip replacement - Past Anesthesia/Blood Transfusion Reactions: No Reported Reaction Past Psychological History: No Psychological Hx Reported Smoking Status: Former smoker Past Alcohol Use History: None Reported Past Drug Use History: None Reported - Past Family History Family Family Medical History: Coronary Artery Disease (CAD) Medications and Allergies Home Medications Medication Instructions Recorded Confirmed Type Simvastatin [Zocor] 20 mg PO HS 11/03/20 11/16/23 History Omeprazole 20 mg PO BID 08/18/22 11/16/23 History amLODIPine [Norvasc] 5 mg PO DAILY 09/02/23 11/16/23 History Docusate [Colace] 100 mg PO BID 30 Days #60 cap 10/16/23 11/16/23 Rx Lactulose 20 gm PO DAILY PRN 7 Days #210 ml 10/16/23 11/16/23 Rx Acetaminophen [Tylenol 8 Hour] 650 mg PO Q8H PRN 11/16/23 11/16/23 History Acetaminophen [Tylenol 8 Hour] 650 mg PO TID 11/16/23 11/16/23 History Artificial Tears-Hypromellose 1 drops BOTH EYES BID 11/16/23 11/16/23 History [Artificial Tear Drops] Ipratropium-Albuterol Nebulize 3 ml INHALATION RT-TID 11/16/23 11/16/23 History [Duoneb 0.5 mg-3 mg/3 ml Soln] Mirtazapine 7.5 mg PO HS 11/16/23 11/16/23 History Ondansetron [Zofran] 4 mg PO BID 11/16/23 11/16/23 History guaiFENesin SYRUP 100MG/5ML 200 mg PO Q4H PRN 11/16/23 11/16/23 History [Robitussin] traMADol HCl [Ultram] 50 mg PO Q6HR 11/16/23 11/16/23 History Allergies Allergy/AdvReac Type Severity Reaction Status Date / Time aspirin AdvReac Nausea & Verified 11/16/23 08:00 Vomiting Physical Exam Vitals: Vital Signs Temp Pulse Resp BP Pulse Ox 11/22/23 08:25 98.2 F 82 18 112/48 96 11/22/23 07:40 95 11/22/23 01:39 98.3 F 73 17 102/52 97 11/21/23 19:26 98.2 F 73 18 94/55 97 11/21/23 14:00 97.4 F L 85 19 120/64 99 Intake and Output 11/21/23 11/22/23 11/22/23 22:59 06:59 14:59 Output Total 400 Balance -400 Output: Urine 400 Other: Voiding Method External Catheter Weight 39 kg EXAM; General: WDWN, elderly female, in bed with HOB elevated, resting, NAD Head: Normocephalic, atraumatic. Eyes: Symmetric Ears: Symmetric. Hearing within normal limits. Mouth: Clear. Neck: Supple. Cardiac: compliance monitor in place. Calves supple, non tender, no edema Lungs: Breathing comfortably on RA. Chest symmetric. Abdomen: Soft, nontender. Extremities: Arthritic changes consistent with age. Neurological: Alert and oriented x 4. Speech is clear and fluent without paraphasic errors Cranial nerves: CN II-XII: intact. Sensation: Intact and symmetrical limbs. Musculoskeletal: ROM WFL: right foot drop MMT UE Sh Abd EE EF FABD WE HG Right 4+ 4+ 4+ 4+ Left 4+ 4+ 4+ 4+ MMT LE HF KE DF EHL Right 4+ 4+ 1 1 Left 4+ 4+ 4+ 4+ Skin: Skin intact where visible to head, neck, and bilateral upper and lower extremities EXCEPT: PIV, bilat lower and upper extremity ecchymosis Psych: Calm, cooperative Results CBC & Chem 7: 11/22/23 07:07 11/22/23 07:07 Labs: Abnormal Lab Results - Last 24 Hours (Table) 11/22/23 Range/Units 07:07 WBC 10.74 H (4.50-10.00) X 10*3/uL Hgb 11.3 L (12.0-15.0) g/dL Hct 36.3 L (37.2-46.3) % MCHC 31.1 L (32.0-37.0) g/dL RDW 15.0 H (11.5-14.5) % Immature Gran # 0.08 H (0.00-0.04) X 10*3/uL Microbiology - Last 24 Hours (Table) 11/16/23 02:16 Blood Culture - Final Blood 11/16/23 01:58 Blood Culture - Final Blood Assessment and Plan Assessment: #COVID-19 with generalized weakness -ID following #Gait impairment/impaired ADLs secondary to recent right ischium and inferior pubic ramus fracture s/p fall #Acute hypoxic respiratory failure secondary to above #Nausea/vomiting secondary to above #Right-sided pleural effusion -Pulmonology following -IV antibiotics #CHF exacerbation -Cardiology following -Lasix #New onset atrial fibrillation -Cardiology following -Eliquis #History of lung cancer with radiation #Bowel/ Bladder: Nursing to monitor and report concerns if any. #Diet -Healthy heart diet with Ensure 3 times daily #Skin/wound: Skin/Wound care to follow as needed #Pain Management -Tramadol 50 mg every 6 hours, Tylenol 650 mg every 6 hours as needed #DVT Prophylaxis: -Eliquis #Comorbidities: GERD, hyperlipidemia, hypertension #Your medical dx and mgt Goals: Modified Independent mobility and ADLS both basic and advanced; increased functional mobility/strength; increased balance, safety, endurance. Improvement in medical issues through your care. Barriers: Pain, respiratory status, recent right ischium and inferior pubic ramus fracture Discharge recommendation: Return to [facility] at discharge. Patient would likely not tolerate 3 hours of therapy daily. Patient would benefit from structured rehab and is looking forward to returning to [facility] at discharge
--- NOTE | 2023-11-22 18:43 | P.PN ---
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 She was brought here to the emergency room last evening for a 3-4 day history of poor appetite, nausea vomiting and weakness. She is residing in [facility]. Chest x-ray revealed moderate right pleural effusion. Cardiomegaly. Moderate pulmonary edema. No pneumothorax. White count 12.7. Hemoglobin 12.4. Platelets 572. Sodium 137. Potassium 4.8. Bicarb 18. BUN 44. Creatinine 1.0. AST 23. ALT 15. ProBNP 4360. Urinalysis clear. She did test positive for COVID-19 infection. He is seen today in consultation in the emergency department. She is sitting up in bed. She is a poor historian. Maintaining O2 saturations in the 90s on 2 L/m per nasal cannula. She's afebrile. Hemodynamically stable. Ultrasound of the chest was ordered and there is a small right pleural effusion of 3.8 cm. No significant fluid on the left. No plans for thoracentesis. His been initiated on bronchodilators. Antibiotics in the form of ceftriaxone. Vitamin supplements. She is on Lasix 40 mg IV daily. No urine output recorded thus f ar. The patient is seen today 11/17/2023 in follow-up on the regular medical floor. She is resting comfortably in bed. Maintaining O2 saturations in the 90s on 3 L/m per nasal cannula. Staff did find her without her oxygen and on room air her saturations were in the 70s. She recovered quickly. She is continued on ceftriaxone. Pro-calcitonin 0.18. White count 10.0. Hemoglobin 10.9. Platel ets 498. Sodium 140 per potassium 4.8. Bicarb 20. BUN 38. Creatinine 0.9. Glucose 67. She did have issues with atrial fibrillation and she is now anticoagulated with Eliquis. She remains on IV diuretics. Diuresing well. Echocardiogram revealed preserved left ventricular systolic function. Mild pulmonary hypertension. The patient is seen today 11/18/2023 in follow-up on the regular medical floor. She is awake and alert in no acute distress. She remains quite weak. She is maintaining O2 saturations in the 90s on 3 L/m per nasal cannula. She's been afebrile. Hemodynamically stable. Follow-up chest x-ray reveals evidence of COPD with decreasing right pleural effusion. Extensive opacity in the right mid and lower lung persist. Patchy left suprahilar airspace slightly improved. Blood culture reveals no growth. No new labs today. She remains on antibiotics and warm ceftriaxone. Anticoagulated with Eliquis. Remains on oral diuretics. Diuresing well. The patient is seen today 11/19/2023 in follow-up on the regular medical floor. She is currently resting comfortably in bed. Currently maintaining good O2 saturations in the high 90s on 2 L/m per nasal cannula. She's afebrile. Hemodynamically stable. White count 10.1. Hemoglobin 12.9. Platelets 445. She is continued on ceftriaxone. Remains on bronchodilators. Remains on oral diuretics. Eliquis for anticoagulation. Continued on vitamin supplements. He has normal saline at 10 MLS per hour. The patient is seen today 11/20/2023 in follow-up on the regular medical floor. She is awake and alert in no acute distress. Resting comfortably in bed. No worsening shortness of breath, cough or congestion. She is maintaining O2 saturations in the 90s on 1 L/m per nasal cannula. No IV fluids. Blood cult ures revealed no growth. No new labs today. She remains on bronchodilators, vitamin supplements, diuretics. Antibiotic in the form of ceftriaxone. Anticoagulated with Eliquis. The patient is seen today 11/21/2023 in follow-up on the regular medical floor. She is currently resting comfortably in bed. Awake and alert in no acute distress. She is maintaining O2 saturations in the 90s on 1 L/m per nasal cannula. No IV fluids. Cultures revealed no growth. No new labs today. She remains on bronchodilators, vitamin supplements, diuretics. Antibiotic in the form of ceftriaxone. Anticoagulated with Eliquis. On today's evaluation of 11/21/2023, the patient remains on room air oxygen. jazmine is doing well. No specific complaints. Note that during this current admission, the patient tested positive for Covid 19 and this is her second infection. Her chest x-ray shows a right-sided pleural effusion which is small based on the ultrasound and no attempts to undergo a thoracentesis. The patient also has E. coli in her sputum. Note that the patient has previous history of lung cancer, treated, history of childhood tuberculosis. The patient also has CHF and chronic into fibrillation and she has limited on anticoagulation with Eliquis. In regards to E. coli in his sputum, the patient is on IV Rocephin. The patient has ability to come of 10.7 with a hemoglobin 11.3 and a platelet count of 410. Sodium is at 139, Giorgio is at 26 with a creatinine of 0.9. No other specific issues otherwise for now. She is looking for placement or ECF placement for rehabilitation Objective - Vital Signs Vital signs: Vital Signs Temp 98.2 F 11/22/23 08:25 Pulse 82 11/22/23 08:25 Resp 18 11/22/23 08:25 BP 112/48 11/22/23 08:25 Pulse Ox 96 11/22/23 08:25 FiO2 Intake & Output 11/21/23 11/22/23 11/22/23 18:59 06:59 18:59 Output Total 400 350 Balance -400 -350 Weight 39 kg Output: Urine 400 350 Other: Voiding Method External Catheter External Catheter - Exam GENERAL EXAM: Alert, weak and frail 87-year-old female, on room air oxygen, in no apparent distress. HEAD: Normocephalic. EYES: Normal reaction of pupils, equal size. NOSE: Clear with pink turbinates. THROAT: No erythema or exudates. NECK: No masses, no JVD. CHEST: No chest wall deformity. LUNGS: Equal air entry with basilar crackles right greater than left. CVS: S1 and S2 normal with no audible murmur, regular rhythm. ABDOMEN: No hepatosplenomegaly, normal bowel sounds, no guarding or rigidity. SPINE: No scoliosis or deformity SKIN: No rashes CENTRAL NERVOUS SYSTEM: No focal deficits, tone is normal in all 4 extremities. EXTREMITIES: There is no peripheral edema. No clubbing, no cyanosis. Peripheral pulses are intact. - Labs CBC & Chem 7: 11/22/23 07:07 11/22/23 07:07 Labs: Abnormal Lab Results - Last 24 Hours (Table) 11/22/23 11/22/23 Range/Units 07:07 07:07 WBC 10.74 H (4.50-10.00) X 10*3/uL Hgb 11.3 L (12.0-15.0) g/dL Hct 36.3 L (37.2-46.3) % MCHC 31.1 L (32.0-37.0) g/dL RDW 15.0 H (11.5-14.5) % Immature Gran # 0.08 H (0.00-0.04) X 10*3/uL Anion Gap 13.20 H (4.00-12.00) mmol/L BUN/Creatinine Ratio 28.89 H (12.00-20.00) Ratio Total Bilirubin 0.2 L (0.3-1.2) mg/dL Total Protein 5.4 L (6.2-8.2) g/dL Albumin 2.8 L (3.8-4.9) g/dL Albumin/Globulin Ratio 1.08 L (1.60-3.17) Ratio Microbiology - Last 24 Hours (Table) 11/16/23 02:16 Blood Culture - Final Blood 11/16/23 01:58 Blood Culture - Final Blood Assessment and Plan Plan: Generalized weakness with nausea and vomiting secondary to acute COVID-19 i nfection without evidence of CoVID pneumonia, and this is the patient's second infection with Covid 19. Acute on chronic diastolic congestive heart failure, echocardiogram revealed preserved left ventricular systolic function Small right-sided pleural effusion, ultrasound of the chest was done and the fluid pocket was small and no attempts for thoracentesis was done Atrial fibrillation, anticoagulated with Eliquis E. 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 Benign hypertension Former smoker Hyperlipidemia History of tuberculosis at the age of 22, institutionalized for 9 months History of gastric ulcer repair and PEG tube placement with subsequent removal Poor overall functional performance based on the above-mentioned multiple comorbidities correction resident Plan: Patient is currently on room air oxygen Continue into the IV Rocephin Continue bronchodilators and the patient is on Ventolin HFA 4 times a day No need for immediate thoracentesis at this point in time Patient has a remote history of tuberculosis Patient has a remote history of lung cancer Patient has COPD and a component of lung fibrosis Condition is stable and she is having some residual generalized weakness and she would benefit from ECF. The plan is for [facility] versus inpatient rehab upon discharge
[2023-11-22] MEDS: ATORVASTATIN 10 MG TAB PO SCH (20:08)
[2023-11-22] MEDS: MIRTAZAPINE 15 MG TAB PO SCH (20:08)
[2023-11-23] MEDS: traMADol 50 MG TAB PO SCH ×4 (00:41→17:09)
[2023-11-23] MEDS: FUROSEMIDE 40 MG TAB PO SCH (09:00)
[2023-11-23] MEDS: ONDANSETRON 4 MG TAB PO SCH ×2 (09:00→20:13)
[2023-11-23] MEDS: DOCUSATE 100 MG CAP PO SCH ×2 (09:00→20:14)
[2023-11-23] MEDS: MEGESTROL 400 MG/10 ML CUP PO SCH (09:00)
[2023-11-23] MEDS: ASCORBIC ACID 500 MG TAB PO SCH (09:00)
[2023-11-23] MEDS: ARTIFICIAL TEARS-HYPROMELLOSE DROPS 15 ML BTL BOTH EYES SCH ×2 (09:00→20:19)
[2023-11-23] MEDS: APIXABAN 2.5 MG TABLET PO SCH ×2 (09:00→20:13)
[2023-11-23] MEDS: METOPROLOL SUCCINATE (ER) 25 MG TAB.ER.24H PO SCH (09:00)
[2023-11-23] MEDS: PANTOPRAZOLE 40 MG TABLET PO SCH ×2 (09:01→20:14)
[2023-11-23] MEDS: CHOLECALCIFEROL 10 MCG (400 IU) TABLET PO SCH (09:01)
[2023-11-23] MEDS: ZINC SULFATE 220 MG CAP PO SCH (09:01)
[2023-11-23] MEDS: ALBUTEROL HFA INHALER INHALATION SCH ×3 (09:54→21:30)
--- NOTE | 2023-11-23 10:50 | P.PN ---
Subjective Progress Note Date: 11/23/23 This is an 87-year-old female patient who presented with complaints of nausea vomiting and weakness over the past 3-4 days. Patient currently resides at [facility]. Upon arrival patient was found to be positive for COVID-19. Influenza and RSV negative. Patient's past medical history of recent fall with pubic ramus fracture, essential hypertension, hyperlipidemia and gastroenteritis. Chest x-ray completed showing moderate right pleural effusion moderate pulmonary edema findings are consistent with CHF. BNP level 4360. Patient started on IV Lasix. Patient started on vitamin C, zinc and vitamin D. At this time pulmonary service service is consulted for pleural effusion, infectious disease services and cardiology services consulted. Patient started on IV antibiotics. Repeat labs ordered. Patient denies chest pain or shortness of breath. Patient does complain of some nausea. Patient denies any urinary burning or frequency On 11/17/2023 patient was seen and examined on the medical floor she is alert and oriented 3 in no apparent distress, she is still complaining of cough and shortness of breath with any activity otherwise she denies any complaints there is no fever or chills no headache or dizziness no chest pain no nausea or vomiting no abdominal pain no diarrhea and no urinary symptoms On 11/18/2023 patient alert and oriented 3. Patient was started on eliquis per cardiology services for new onset atrial fibrillation heart rate remains controlled at this time. Patient remains on IV antibiotics. Infectious disease, cardiology and pulmonary services are following. Current vital signs temp 98.1, heart rate 84, blood pressure 120/55 and pulse ox 99% on 3 L. On 11/19/2023 patient was seen and examined on the medical floor she is alert and oriented 3 in no apparent distress, she is feeling better, she is still complaining of cough and shortness of breath with activity, otherwise she denies any complaints, there is no fever or chills no headache or dizziness no chest pain no nausea or vomiting no abdominal pain no diarrhea and no urinary symptoms. Vital exam reveals a temperature of 97.7 pulse 90 respirations 17 blood pressure 108/53 pulse ox 98% on 2 L nasal cannula white blood count is 10.1 hemoglobin 12.2 platelet count 445 CMP is still pending On 11/20/2023 patient is alert and oriented 3. Medications adjusted per cardiology including Lopressor and eliquis. Patient reports improvement with shortness breath. Current vital signs temp 98.1, heart rate 87, respiratory rate 18, blood pressure 122/63 with pulse ox of 100% on 2 L. According to case management note patient will need new prior authorization for return to facility. On 11/21/2023 patient was seen and examined on the medical floor, she is alert and oriented 3 in no apparent distress, she is sitting up in a chair, she is complaining of generalized weakness and poor oral intake, she is still complaining of cough and shortness of breath otherwise she denies any complaints there is no fever or chills no headache or dizziness no chest pain no nausea or vomiting no abdominal pain no diarrhea and no urinary symptoms On 11/22/2023 patient alert and oriented 3 currently sitting up in bed. Discussed case with case management awaiting insurance authorization for return to ECF facility. Likely to be tomorrow 11/23/2023. At this time patient denies chest pain or shortness of breath. Patient denies nausea vomiting or diarrhea. Patient denies any urinary burning or frequency On 11/23/2023 patient alert and oriented 3. Discussed case with case managemen t services awaiting insurance [place] for discharge to ECF facility. At this time patient denies chest pain or shortness breath. Patient denies nausea vomiting or diarrhea. Patient denies urinary burning or frequency'' Dr. Tan's group will be covering from 11/24/2023 to 11/30/2023 Objective - Vital Signs Vital signs: Vital Signs Temp 98.7 F 11/23/23 07:52 Pulse 71 11/23/23 07:52 Resp 15 11/23/23 07:52 BP 94/56 11/23/23 07:52 Pulse Ox 98 11/23/23 07:52 FiO2 Intake & Output 11/22/23 11/23/23 11/23/23 18:59 06:59 18:59 Output Total 650 Balance -650 Weight 39 kg 40 kg Output: Urine 650 Other: Voiding Method External Catheter External Catheter External Catheter # Voids 1 - Exam Head normocephalic Neck supple Lungs clear to auscultation bilaterally no wheezing or crackles Heart regular rate and rhythm S1-S2, no rub or gallop Abdomen is soft nontender nondistended positive bowel sounds no hepatosplenomegaly Extremities no edema Neuro alert and orientated to 3 - Labs CBC & Chem 7: 11/22/23 07:07 11/22/23 07:07 Labs: Abnormal Lab Results - Last 24 Hours (Table) 11/22/23 Range/Units 07:07 Anion Gap 13.20 H (4.00-12.00) mmol/L BUN/Creatinine Ratio 28.89 H (12.00-20.00) Ratio Total Bilirubin 0.2 L (0.3-1.2) mg/dL Total Protein 5.4 L (6.2-8.2) g/dL Albumin 2.8 L (3.8-4.9) g/dL Albumin/Globulin Ratio 1.08 L (1.60-3.17) Ratio Assessment and Plan Assessment: nausea vomiting and weakness secondary to COVID-19 infection Pleural effusion. Pulmonary service is consulted Acute hypoxic respiratory failure requiring oxygen use Acute CHF exacerbation. Patient started on IV Lasix. 2-D echo ordered cardiology services New-onset atrial fibrillation. Patient started on eliquis. Heart rate remains controlled at this time Heart remained controlled at this time. Recent fall with pubic ramus fracture History of essential hypertension History of hyperlipidemia History of gastroenteritis Severe protein calorie malnutrition started on protein supplements DVT prophylaxis eliquis. GI prophylaxis Protonix. Patient started on vitamin C zinc and vitamin D Patient seen on IV antibiotics Pulmonary service is consulted for pleural effusion 2-D echo ordered patient on IV Lasix Cardiology service is consulted Infectious disease service is consulted Repeat labs ordered
--- NOTE | 2023-11-23 13:46 | P.PN ---
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 She was brought here to the emergency room last evening for a 3-4 day history of poor appetite, nausea vomiting and weakness. She is residing in [facility]. Chest x-ray revealed moderate right pleural effusion. Cardiomegaly. Moderate pulmonary edema. No pneumothorax. White count 12.7. Hemoglobin 12.4. Platelets 572. Sodium 137. Potassium 4.8. Bicarb 18. BUN 44. Creatinine 1.0. AST 23. ALT 15. ProBNP 4360. Urinalysis clear. She did test positive for COVID-19 infection. He is seen today in consultation in the emergency department. She is sitting up in bed. She is a poor historian. Maintaining O2 saturations in the 90s on 2 L/m per nasal cannula. She's afebrile. Hemodynamically stable. Ultrasound of the chest was ordered and there is a small right pleural effusion of 3.8 cm. No significant fluid on the left. No plans for thoracentesis. His been initiated on bronchodilators. Antibiotics in the form of ceftriaxone. Vitamin supplements. She is on Lasix 40 mg IV daily. No urine output recorded thus f ar. The patient is seen today 11/17/2023 in follow-up on the regular medical floor. She is resting comfortably in bed. Maintaining O2 saturations in the 90s on 3 L/m per nasal cannula. Staff did find her without her oxygen and on room air her saturations were in the 70s. She recovered quickly. She is continued on ceftriaxone. Pro-calcitonin 0.18. White count 10.0. Hemoglobin 10.9. Platel ets 498. Sodium 140 per potassium 4.8. Bicarb 20. BUN 38. Creatinine 0.9. Glucose 67. She did have issues with atrial fibrillation and she is now anticoagulated with Eliquis. She remains on IV diuretics. Diuresing well. Echocardiogram revealed preserved left ventricular systolic function. Mild pulmonary hypertension. The patient is seen today 11/18/2023 in follow-up on the regular medical floor. She is awake and alert in no acute distress. She remains quite weak. She is maintaining O2 saturations in the 90s on 3 L/m per nasal cannula. She's been afebrile. Hemodynamically stable. Follow-up chest x-ray reveals evidence of COPD with decreasing right pleural effusion. Extensive opacity in the right mid and lower lung persist. Patchy left suprahilar airspace slightly improved. Blood culture reveals no growth. No new labs today. She remains on antibiotics and warm ceftriaxone. Anticoagulated with Eliquis. Remains on oral diuretics. Diuresing well. The patient is seen today 11/19/2023 in follow-up on the regular medical floor. She is currently resting comfortably in bed. Currently maintaining good O2 saturations in the high 90s on 2 L/m per nasal cannula. She's afebrile. Hemodynamically stable. White count 10.1. Hemoglobin 12.9. Platelets 445. She is continued on ceftriaxone. Remains on bronchodilators. Remains on oral diuretics. Eliquis for anticoagulation. Continued on vitamin supplements. He has normal saline at 10 MLS per hour. The patient is seen today 11/20/2023 in follow-up on the regular medical floor. She is awake and alert in no acute distress. Resting comfortably in bed. No worsening shortness of breath, cough or congestion. She is maintaining O2 saturations in the 90s on 1 L/m per nasal cannula. No IV fluids. Blood cult ures revealed no growth. No new labs today. She remains on bronchodilators, vitamin supplements, diuretics. Antibiotic in the form of ceftriaxone. Anticoagulated with Eliquis. The patient is seen today 11/21/2023 in follow-up on the regular medical floor. She is currently resting comfortably in bed. Awake and alert in no acute distress. She is maintaining O2 saturations in the 90s on 1 L/m per nasal cannula. No IV fluids. Cultures revealed no growth. No new labs today. She remains on bronchodilators, vitamin supplements, diuretics. Antibiotic in the form of ceftriaxone. Anticoagulated with Eliquis. On today's evaluation of 11/21/2023, the patient remains on room air oxygen. jazmine is doing well. No specific complaints. Note that during this current admission, the patient tested positive for Covid 19 and this is her second infection. Her chest x-ray shows a right-sided pleural effusion which is small based on the ultrasound and no attempts to undergo a thoracentesis. The patient also has E. coli in her sputum. Note that the patient has previous history of lung cancer, treated, history of childhood tuberculosis. The patient also has CHF and chronic into fibrillation and she has limited on anticoagulation with Eliquis. In regards to E. coli in his sputum, the patient is on IV Rocephin. The patient has ability to come of 10.7 with a hemoglobin 11.3 and a platelet count of 410. Sodium is at 139, Giorgio is at 26 with a creatinine of 0.9. No other specific issues otherwise for now. She is looking for placement or ECF placement for rehabilitation On today's evaluation of 11/22/2023, the patient is being seen for a follow-up. The patient is on room air oxygen. She was found to have E. coli in her sputum and she completed a course of Rocephin. She was also infected with Covid 19 without clear indication for an underlying pneumonia. The patient is otherwise doing well. No specific complaints. No nausea or vomiting. No emesis. Overall, feeling generalized weak although this is improved during the current hospitalization. No new labs are available from today. Objective - Vital Signs Vital signs: Vital Signs Temp 98.7 F 11/23/23 07:52 Pulse 71 11/23/23 07:52 Resp 15 11/23/23 07:52 BP 94/56 11/23/23 07:52 Pulse Ox 98 11/23/23 07:52 FiO2 Intake & Output 11/22/23 11/23/23 11/23/23 18:59 06:59 18:59 Output Total 650 Balance -650 Weight 39 kg 40 kg Output: Urine 650 Other: Voiding Method External Catheter External Catheter External Catheter # Voids 1 - Exam GENERAL EXAM: Alert, weak and frail 87-year-old female, on room air oxygen, in no apparent distress. HEAD: Normocephalic. EYES: Normal reaction of pupils, equal size. NOSE: Clear with pink turbinates. THROAT: No erythema or exudates. NECK: No masses, no JVD. CHEST: No chest wall deformity. LUNGS: Equal air entry with basilar crackles right greater than left. CVS: S1 and S2 normal with no audible murmur, regular rhythm. ABDOMEN: No hepatosplenomegaly, normal bowel sounds, no guarding or rigidity. SPINE: No scoliosis or deformity SKIN: No rashes CENTRAL NERVOUS SYSTEM: No focal deficits, tone is normal in all 4 extremities. EXTREMITIES: There is no peripheral edema. No clubbing, no cyanosis. Periph eral pulses are intact. - Labs CBC & Chem 7: 11/22/23 07:07 11/22/23 07:07 Assessment and Plan Plan: Generalized weakness with nausea and vomiting secondary to acute COVID-19 infection without evidence of CoVID pneumonia, and this is the patient's second infection with Covid 19. Acute on chronic diastolic congestive heart failure, echocardiogram revealed preserved left ventricular systolic function, currently inactive and stable Small right-sided pleural effusion, ultrasound of the chest was done and the fl uid pocket was small and no attempts for thoracentesis was done Atrial fibrillation, anticoagulated with Eliquis E. 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 Benign hypertension Former smoker Hyperlipidemia History of tuberculosis at the age of 22, institutionalized for 9 months History of gastric ulcer repair and PEG tube placement with subsequent removal Poor overall functional performance based on the above-mentioned multiple comorbidities shelter resident Plan: Patient is currently on room air oxygen The patient completed the course of Rocephin No need for steroids Continue bronchodilators and the patient is on Ventolin HFA 4 times a day No need for immediate thoracentesis at this point in time Patient has a remote history of tuberculosis Patient has a remote history of lung cancer Patient has COPD and a component of lung fibrosis Condition is stable and she is having some residual generalized weakness and she would benefit from ECF. The plan is for [facility] versus inpatient rehab upon discharge
[2023-11-23] MEDS: ATORVASTATIN 10 MG TAB PO SCH (20:13)
[2023-11-23] MEDS: MIRTAZAPINE 15 MG TAB PO SCH (20:14)
[2023-11-24] MEDS: traMADol 50 MG TAB PO SCH ×4 (00:06→16:55)
[2023-11-24] MEDS: APIXABAN 2.5 MG TABLET PO SCH ×2 (09:01→21:18)
[2023-11-24] MEDS: FUROSEMIDE 40 MG TAB PO SCH (09:01)
[2023-11-24] MEDS: ASCORBIC ACID 500 MG TAB PO SCH (09:01)
[2023-11-24] MEDS: ZINC SULFATE 220 MG CAP PO SCH (09:01)
[2023-11-24] MEDS: PANTOPRAZOLE 40 MG TABLET PO SCH ×2 (09:01→21:18)
[2023-11-24] MEDS: METOPROLOL SUCCINATE (ER) 25 MG TAB.ER.24H PO SCH (09:01)
[2023-11-24] MEDS: ONDANSETRON 4 MG TAB PO SCH ×2 (09:01→21:18)
[2023-11-24] MEDS: DOCUSATE 100 MG CAP PO SCH ×2 (09:01→21:18)
[2023-11-24] MEDS: MEGESTROL 400 MG/10 ML CUP PO SCH (09:02)
[2023-11-24] MEDS: ARTIFICIAL TEARS-HYPROMELLOSE DROPS 15 ML BTL BOTH EYES SCH ×2 (09:03→21:19)
[2023-11-24] MEDS: CHOLECALCIFEROL 10 MCG (400 IU) TABLET PO SCH (09:04)
[2023-11-24] MEDS: ALBUTEROL HFA INHALER INHALATION SCH ×3 (09:31→18:22)
[2023-11-24] MEDS ORDERED: polyethylene glycoL 3350 17 GM POWD.PACK PO STA (11:45)
[2023-11-24 13:02] VITALS: BMI 17.3
--- NOTE | 2023-11-24 13:57 | P.PN ---
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 She was brought here to the emergency room last evening for a 3-4 day history of poor appetite, nausea vomiting and weakness. She is residing in [facility]. Chest x-ray revealed moderate right pleural effusion. Cardiomegaly. Moderate pulmonary edema. No pneumothorax. White count 12.7. Hemoglobin 12.4. Platelets 572. Sodium 137. Potassium 4.8. Bicarb 18. BUN 44. Creatinine 1.0. AST 23. ALT 15. ProBNP 4360. Urinalysis clear. She did test positive for COVID-19 infection. He is seen today in consultation in the emergency department. She is sitting up in bed. She is a poor historian. Maintaining O2 saturations in the 90s on 2 L/m per nasal cannula. She's afebrile. Hemodynamically stable. Ultrasound of the chest was ordered and there is a small right pleural effusion of 3.8 cm. No significant fluid on the left. No plans for thoracentesis. His been initiated on bronchodilators. Antibiotics in the form of ceftriaxone. Vitamin supplements. She is on Lasix 40 mg IV daily. No urine output recorded thus f ar. The patient is seen today 11/17/2023 in follow-up on the regular medical floor. She is resting comfortably in bed. Maintaining O2 saturations in the 90s on 3 L/m per nasal cannula. Staff did find her without her oxygen and on room air her saturations were in the 70s. She recovered quickly. She is continued on ceftriaxone. Pro-calcitonin 0.18. White count 10.0. Hemoglobin 10.9. Platel ets 498. Sodium 140 per potassium 4.8. Bicarb 20. BUN 38. Creatinine 0.9. Glucose 67. She did have issues with atrial fibrillation and she is now anticoagulated with Eliquis. She remains on IV diuretics. Diuresing well. Echocardiogram revealed preserved left ventricular systolic function. Mild pulmonary hypertension. The patient is seen today 11/18/2023 in follow-up on the regular medical floor. She is awake and alert in no acute distress. She remains quite weak. She is maintaining O2 saturations in the 90s on 3 L/m per nasal cannula. She's been afebrile. Hemodynamically stable. Follow-up chest x-ray reveals evidence of COPD with decreasing right pleural effusion. Extensive opacity in the right mid and lower lung persist. Patchy left suprahilar airspace slightly improved. Blood culture reveals no growth. No new labs today. She remains on antibiotics and warm ceftriaxone. Anticoagulated with Eliquis. Remains on oral diuretics. Diuresing well. The patient is seen today 11/19/2023 in follow-up on the regular medical floor. She is currently resting comfortably in bed. Currently maintaining good O2 saturations in the high 90s on 2 L/m per nasal cannula. She's afebrile. Hemodynamically stable. White count 10.1. Hemoglobin 12.9. Platelets 445. She is continued on ceftriaxone. Remains on bronchodilators. Remains on oral diuretics. Eliquis for anticoagulation. Continued on vitamin supplements. He has normal saline at 10 MLS per hour. The patient is seen today 11/20/2023 in follow-up on the regular medical floor. She is awake and alert in no acute distress. Resting comfortably in bed. No worsening shortness of breath, cough or congestion. She is maintaining O2 saturations in the 90s on 1 L/m per nasal cannula. No IV fluids. Blood cult ures revealed no growth. No new labs today. She remains on bronchodilators, vitamin supplements, diuretics. Antibiotic in the form of ceftriaxone. Anticoagulated with Eliquis. The patient is seen today 11/21/2023 in follow-up on the regular medical floor. She is currently resting comfortably in bed. Awake and alert in no acute distress. She is maintaining O2 saturations in the 90s on 1 L/m per nasal cannula. No IV fluids. Cultures revealed no growth. No new labs today. She remains on bronchodilators, vitamin supplements, diuretics. Antibiotic in the form of ceftriaxone. Anticoagulated with Eliquis. On today's evaluation of 11/21/2023, the patient remains on room air oxygen. jazmine is doing well. No specific complaints. Note that during this current admission, the patient tested positive for Covid 19 and this is her second infection. Her chest x-ray shows a right-sided pleural effusion which is small based on the ultrasound and no attempts to undergo a thoracentesis. The patient also has E. coli in her sputum. Note that the patient has previous history of lung cancer, treated, history of childhood tuberculosis. The patient also has CHF and chronic into fibrillation and she has limited on anticoagulation with Eliquis. In regards to E. coli in his sputum, the patient is on IV Rocephin. The patient has ability to come of 10.7 with a hemoglobin 11.3 and a platelet count of 410. Sodium is at 139, Giorgio is at 26 with a creatinine of 0.9. No other specific issues otherwise for now. She is looking for placement or ECF placement for rehabilitation On today's evaluation of 11/22/2023, the patient is being seen for a follow-up. The patient is on room air oxygen. She was found to have E. coli in her sputum and she completed a course of Rocephin. She was also infected with Covid 19 without clear indication for an underlying pneumonia. The patient is otherwise doing well. No specific complaints. No nausea or vomiting. No emesis. Overall, feeling generalized weak although this is improved during the current hospitalization. No new labs are available from today. On today's evaluation of 11/23/2023, the patient is being seen for a follow-up. Overall condition is stable and unchanged. The patient is awaiting transfer to senior living. The patient completed her course of Rocephin and was given for an E. coli in his sputum. She is also infected with Covid 19. She is clinically stable. No interval worsening in oxygenation. The patient remains on room air oxygen. No other significant events overnight. The patient has no new labs are available from today. The patient remains on anticoagulation with Eliquis 2.5 mg by mouth twice a day. Rest of the medications remain unchanged. She is also on Lasix 40 mg on a daily basis. Objective - Vital Signs Vital signs: Vital Signs Temp 98.4 F 11/24/23 08:00 Pulse 70 11/24/23 08:00 Resp 16 11/24/23 10:21 BP 95/57 11/24/23 08:00 Pulse Ox 93 L 11/24/23 08:00 FiO2 Intake & Output 11/23/23 11/24/23 11/24/23 18:59 06:59 18:59 Weight 43 kg Other: Voiding Method External Catheter External Catheter - Exam GENERAL EXAM: Alert, weak and frail 87-year-old female, on room air oxygen, in no apparent distress. HEAD: Normocephalic. EYES: Normal reaction of pupils, equal size. NOSE: Clear with pink turbinates. THROAT: No erythema or exudates. NECK: No masses, no JVD. CHEST: No chest wall deformity. LUNGS: Equal air entry with basilar crackles right greater than left. CVS: S1 and S2 normal with no audible murmur, regular rhythm. ABDOMEN: No hepatosplenomegaly, normal bowel sounds, no guarding or rigidity. SPINE: No scoliosis or deformity SKIN: No rashes CENTRAL NERVOUS SYSTEM: No focal deficits, tone is normal in all 4 extremities. EXTREMITIES: There is no peripheral edema. No clubbing, no cyanosis. Peripheral pulses are intact. - Labs CBC & Chem 7: 11/22/23 07:07 11/22/23 07:07 Assessment and Plan Plan: Generalized weakness with nausea and vomiting secondary to acute COVID-19 infection without evidence of CoVID pneumonia, and this is the patient's second infection with Covid 19. Acute on chronic diastolic congestive heart failure, echocardiogram revealed preserved left ventricular systolic function, currently inactive and stable Small right-sided pleural effusion, ultrasound of the chest was done and the fluid pocket was small and no attempts for thoracentesis was done Atrial fibrillation, anticoagulated with Eliquis E. 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 coli in the sputum No need for steroids Continue Lasix Continue anticoagulation with Eliquis 2.5 mg by mouth twice a day Continue bronchodilators and the patient is on Ventolin HFA 4 times a day No need for immediate thoracentesis at this point in time Patient has a remote history of tuberculosis Patient has a remote history of lung cancer Patient has COPD and a component of lung fibrosis Condition is stable and she is having some residual generalized weakness and she would benefit from ECF. The plan is for [facility] versus inpatient rehab upon discharge
--- NOTE | 2023-11-24 15:41 | P.PN ---
Subjective Progress Note Date: 11/23/23 Principal diagnosis: Reason for follow-up is covid19 , leukocytosis Patient is a 87-year-old female with a past medical history significant hypertension hyperlipidemia reflux left lung cancer with history of radiation patient was brought into the hospital for evaluation of nausea and vomiting decreased appetite increasing weakness, patient tested positive for COVID chest x-ray with moderate effusion and pulmonary edema white count mildly elevated. On today's evaluation that is 11/23/2023 patient continues to be afebrile, the patient is breathing comfortably on room air, the patient denies having any chest pain shortness of breath did have occasional dry cough, the patient denies nausea vomiting no abdominal pain vomiting diarrhea. Patient white count of 10.74, creatinine 0.9 Objective - Vital Signs Vital signs: Vital Signs Temp 99.0 F 11/23/23 14:00 Pulse 68 11/23/23 14:00 Resp 17 11/23/23 14:00 BP 97/53 11/23/23 14:00 Pulse Ox 94 L 11/23/23 14:00 FiO2 Intake & Output 11/22/23 11/23/23 11/23/23 18:59 06:59 18:59 Output Total 650 Balance -650 Weight 39 kg 40 kg Output: Urine 650 Other: Voiding Method External Catheter External Catheter External Catheter # Voids 1 - Exam GENERAL DESCRIPTION: An elderly female lying in bed in no distress RESPIRATORY SYSTEM: Unlabored breathing , decreased breath sound at the base HEART: S1 S2 regular rate and rhythm , ABDOMEN: Soft , no tenderness EXTREMITIES: No edema feet - Labs CBC & Chem 7: 11/22/23 07:07 11/22/23 07:07 Assessment and Plan (1) Leukocytosis Current Visit: Yes Status: Acute Code(s): D72.829 - ELEVATED WHITE BLOOD CELL COUNT, UNSPECIFIED SNOMED Code(s): 010992583 (2) COVID-19 Current Visit: Yes Status: Acute Code(s): U07.1 - COVID-19 SNOMED Code(s): 729731961 (3) Pleural effusion Current Visit: Yes Status: Acute Code(s): J90 - PLEURAL EFFUSION, NOT ELSEWHERE CLASSIFIED SNOMED Code(s): 11234160 Plan: 1patient presented to hospital with weakness nausea vomiting not feeling well symptoms are more likely multifactorial in this patient who did tested positive for COVID however no significant hypoxemia and treatment be mostly supportive, Patient to continue with the Zinc ascorbic acid Eliquis and continue with supportive care 2patient was also noticed to have elevated white count chest x-ray with moderate right effusion concerning for underlying pneumonia, patient had mild elevated procalcitonin 3patient has shown clinical improvement and is completed a course of Rocephin will monitor the patient closely off antibiotic therapy at this point Dictation was produced using [employer] dictation software. please excuse any grammatical, word or spelling errors. Time with Patient: Less than 30
--- NOTE | 2023-11-24 15:43 | P.PN ---
Subjective Progress Note Date: 11/24/23 Principal diagnosis: Reason for follow-up is covid19 , leukocytosis Patient is a 87-year-old female with a past medical history significant hypertension hyperlipidemia reflux left lung cancer with history of radiation patient was brought into the hospital for evaluation of nausea and vomiting decreased appetite increasing weakness, patient tested positive for COVID chest x-ray with moderate effusion and pulmonary edema white count mildly elevated. On today's evaluation that is 11/24/2023 patient remains to be afebrile, the patient is breathing comfortably on room air without need for supplemental oxygen, the patient denies having any chest pain shortness of breath did have occasional dry cough, the patient denies nausea vomiting no abdominal pain vomiting diarrhea. Feeling better no new symptoms Patient white count of 10.74, creatinine 0.9 as of 11/22/2023 Objective - Vital Signs Vital signs: Vital Signs Temp 98.4 F 11/24/23 08:00 Pulse 70 11/24/23 08:00 Resp 16 11/24/23 10:21 BP 95/57 11/24/23 08:00 Pulse Ox 93 L 11/24/23 08:00 FiO2 Intake & Output 11/23/23 11/24/23 11/24/23 18:59 06:59 18:59 Intake Total 100 Balance 100 Weight 43 kg 43 kg Intake: Oral 100 Other: Voiding Method External Catheter External Catheter - Exam GENERAL DESCRIPTION: An elderly female lying in bed in no distress RESPIRATORY SYSTEM: Unlabored breathing , decreased breath sound at the base HEART: S1 S2 regular rate and rhythm , ABDOMEN: Soft , no tenderness EXTREMITIES: No edema feet - Labs CBC & Chem 7: 11/22/23 07:07 11/22/23 07:07 Assessment and Plan (1) Leukocytosis Current Visit: Yes Status: Acute Code(s): D72.829 - ELEVATED WHITE BLOOD CELL COUNT, UNSPECIFIED SNOMED Code(s): 973317936 (2) COVID-19 Current Visit: Yes Status: Acute Code(s): U07.1 - COVID-19 SNOMED Code(s): 732836114 (3) Pleural effusion Current Visit: Yes Status: Acute Code(s): J90 - PLEURAL EFFUSION, NOT ELSEWHERE CLASSIFIED SNOMED Code(s): 64192646 Plan: 1patient presented to hospital with weakness nausea vomiting not feeling well symptoms are more likely multifactorial in this patient who did tested positive for COVID however no significant hypoxemia and treatment be mostly supportive, Patient to continue with the Zinc ascorbic acid Eliquis and continue with supportive care 2patient was also noticed to have elevated white count chest x-ray with mo derate right effusion concerning for underlying pneumonia, patient had mild elevated procalcitonin 33patient has shown clinical improvement and is completed a course of Rocephin seem to be doing well off antibiotics, we will monitor closely and no need for any antibiotics on discharge currently waiting for placement Dictation was produced using [email or web address] dictation software. please excuse any gramm atical, word or spelling errors. Time with Patient: Less than 30
[2023-11-24] MEDS: ATORVASTATIN 10 MG TAB PO SCH (21:18)
[2023-11-24] MEDS: MIRTAZAPINE 15 MG TAB PO SCH (21:18)
--- NOTE | 2023-11-24 23:17 | P.PN ---
Subjective Progress Note Date: 11/24/23 This is an 87 year old female who resides at [facility]. Found to have acute covid infection brought to the hospital for supportive care and also was treated for mild CHF exacerbation. Has since been transitioned to oral lasix. Echocardiogram shows normal LV function. On room air. Complaints of no BM for the last 5 days and will be given miralax. Review of Systems Constitutional: Denied any fatigue denied any fever. Cardio vascular: denied any chest pain, palpitations Gastrointestinal: denied any nausea, vomiting, diarrhea Pulmonary: Denied any shortness of breath cough Neurologic denied any new focal deficits All inpatient medications were reviewed and appropriate changes in these med ications as dictated in the interval history and assessment and plan. PHYSICAL EXAMINATION: GENERAL: The patient is alert and oriented x3, not in any acute distress. Well developed, well nourished. HEENT: Pupils are round and equally reacting to light. EOMI. No scleral icterus. No conjunctival pallor. Normocephalic, atraumatic. No pharyngeal erythema. No thyromegaly. CARDIOVASCULAR: S1 and S2 present. No murmurs, rubs, or gallops. PULMONARY: Chest is clear to auscultation, no wheezing or crackles. ABDOMEN: Soft, nontender, nondistended, normoactive bowel sounds. No palpable organomegaly. MUSCULOSKELETAL: No joint swelling or deformity. EXTREMITIES: No cyanosis, clubbing, or pedal edema. NEUROLOGICAL: Gross neurological examination did not reveal any focal deficits. SKIN: No rashes. Assessment and Plan -Nausea vomiting and weakness secondary to COVID-19 infection -Acute hypoxic respiratory failure secondary to acute covid infection and CHF requiring oxygen use has been weaned to room air. -Acute diastolic CHF with normal LV function treated with IV lasix. Has been transitioned to oral lasix and cardiology cleared for DC. -New-onset atrial fibrillation. Patient started on eliquis. Heart rate remains controlled at this time -Recent fall with pubic ramus fracture currently at rehab -History of essential hypertension -History of hyperlipidemia -History of gastroenteritis -Severe protein calorie malnutrition started on protein supplements -History of pseudomonas pneumonia and recent E.Coli in the sputum treated with IV rocephin -Hx lung cancer with radiation and subsequent chronic fibrosis GI prophylaxis DVT prophylaxis: Eliquis Patient is pending insurance authorization for return to [facility]. The impression and plan of care has been dictated by Alicia Quveedo, Nurse Practitioner as directed. Dr. Maurice MD I have performed a history and physical examination and medical decision making of this patient, discussed the same with the dictator, and agree with the dictators assessment and plan as written, documented as a scribe. Based on total visit time, I have performed more than 50% of this visit. Objective - Vital Signs Vital signs: Vital Signs Temp 98.4 F 11/24/23 08:00 Pulse 70 11/24/23 08:00 Resp 15 11/24/23 08:00 BP 95/57 11/24/23 08:00 Pulse Ox 93 L 11/24/23 08:00 FiO2 Intake & Output 11/23/23 11/24/23 11/24/23 18:59 06:59 18:59 Weight 43 kg Other: Voiding Method External Catheter - Labs CBC & Chem 7: 11/22/23 07:07 11/22/23 07:07 Assessment and Plan Time with Patient: Less than 30
[2023-11-25] MEDS: traMADol 50 MG TAB PO SCH ×3 (01:12→11:57)
[2023-11-25 02:42] VITALS: TEMP 97.9
[2023-11-25] MEDS: DOCUSATE 100 MG CAP PO SCH (08:49)
[2023-11-25] MEDS: ZINC SULFATE 220 MG CAP PO SCH (08:49)
[2023-11-25] MEDS: PANTOPRAZOLE 40 MG TABLET PO SCH (08:49)
[2023-11-25] MEDS: METOPROLOL SUCCINATE (ER) 25 MG TAB.ER.24H PO SCH (08:49)
[2023-11-25] MEDS: ASCORBIC ACID 500 MG TAB PO SCH (08:49)
[2023-11-25] MEDS: APIXABAN 2.5 MG TABLET PO SCH (08:50)
[2023-11-25] MEDS: FUROSEMIDE 40 MG TAB PO SCH (08:50)
[2023-11-25] MEDS: ONDANSETRON 4 MG TAB PO SCH (08:50)
[2023-11-25] MEDS: MEGESTROL 400 MG/10 ML CUP PO SCH (08:51)
[2023-11-25] MEDS: CHOLECALCIFEROL 10 MCG (400 IU) TABLET PO SCH (08:53)
[2023-11-25] MEDS: ARTIFICIAL TEARS-HYPROMELLOSE DROPS 15 ML BTL BOTH EYES SCH (08:56)
[2023-11-25] MEDS ORDERED: polyethylene glycoL 3350 17 GM POWD.PACK PO SCH (09:00)
[2023-11-25 09:06] VITALS: BP 102/54; PULSE 76; RESP 16
[2023-11-25] MEDS: ALBUTEROL HFA INHALER INHALATION SCH ×2 (09:28→12:54)
[2023-11-25] MEDS ORDERED: bisacodyL 10 MG SUPP RECTAL STA (12:22)
--- NOTE | 2023-11-25 13:38 | P.DS ---
Providers Date of admission: 11/16/23 01:01 Attending physician: Yanet Fournier Consults: 11/16/23 02:10 Consult Physician Routine Consulting Provider: Harvinder Christian Consult Reason/Comments: pleural effusion Do you want consulting provider notified?: Yes 11/16/23 10:18 Consult Physician Routine Consulting Provider: Meng Patiño Consult Reason/Comments: covid 19 Do you want consulting provider notified?: Yes 11/16/23 11:09 Consult Physician Routine Consulting Provider: Carmne Keita Consult Reason/Comments: Chf Do you want consulting provider notified?: Yes 11/20/23 09:56 Consult Physician Routine Consulting Provider: Bailey Toribio Consult Reason/Comments: ipr consult Do you want consulting provider notified?: Yes Primary care physician: Yanet Fournier [facility] Course: Final Diagnosis -Nausea vomiting and weakness secondary to COVID-19 infection -Acute hypoxic respiratory failure secondary to acute covid infection and CHF requiring oxygen use has been weaned to room air. -Acute diastolic CHF with normal LV function treated with IV lasix. Has been transitioned to oral lasix. -New-onset atrial fibrillation. Patient started on eliquis. Heart rate remains controlled at this time -Recent fall with pubic ramus fracture currently at rehab -History of essential hypertension -History of hyperlipidemia -History of gastroenteritis -Severe protein calorie malnutrition started on protein supplements -History of pseudomonas pneumonia and recent E.Coli in the sputum treated with IV rocephin -Hx lung cancer with radiation and subsequent chronic fibrosis Discharge Disposition Patient is stable for discharge and return to the [facility] for rehabilitation. Found to be in new onset atrial fibrillation and will be discharged on eliquis 2.5 mg BID. Patient is discharged on toprol XL rate control medication. Has completed course of IV ceftriaxone from previous E.Coli in the sputum. Recommending to repeat labs in 2 to 3 days. Continue supportive care. Hospital Course This is an 87-year-old female patient who presented with complaints of nausea vomiting and weakness over the past 3-4 days. Patient currently resides at [facility] where she currently has been for rehabiliation. Upon arrival patient was found to be positive for COVID-19. Influenza and RSV negative. Patient's past medical history of recent fall with pubic ramus fracture, essential hypertension, hyperlipidemia and gastroenteritis. Chest x-ray completed showing moderate right pleural effusion moderate pulmonary edema findings are consistent with CHF. BNP level 4360. Patient started on IV Lasix. Patient started on vitamin C, zinc and vitamin D. At this time pulmonary service service is consulted for pleural effusion, infectious disease services and cardiology services consulted. Pleural effusion was not enough for thoracentesis. Echocardiogram revealed preserved left ventricular systolic function. This hospital stay patient was diagnosed with atrial fibrillation is being anticoagulated with eliquis. amlodipine was stopped and patient is now on metoprolol for rate control. Heart rate is controlled in the 80s. She is sitting up in the chair awake and alert and oriented x3. Less short of breath does have increased appetite. Has not had a bowel movement for 4 days and is receiving miralax and colace and will also give a suppository today. Her abdomen is soft and nontender with noromoactive bowel sounds no abdominal distention. Lungs are clear. Most recent labs showing white count of 10.74, hgb 11.3, sodium 139, potassium 4.0, BUN 26, creatinine 0.9. Cleared for DC to return to rehab today. Please see medication reconciliation for a list of current medications. Thank you for allowing us to participate in the care of this patient. The impression and plan of care has been dictated by Alicia Quevedo, Nurse Practitioner as directed. Dr. Maurice MD I have performed a history and physical examination and medical decision making of this patient, discussed the same with the dictator, and agree with the dictators assessment and plan as written, documented as a scribe. Based on total visit time, I have performed more than 50% of this visit. Patient Condition at Discharge: Stable Plan - Discharge Summary Discharge Rx Participant: No New Discharge Prescriptions: New Apixaban [Eliquis] 2.5 mg PO BID tab Furosemide [Lasix] 40 mg PO DAILY tab Megestrol [Megace] 800 mg PO DAILY ml Zinc Sulfate [Orazinc] 220 mg PO DAILY cap Metoprolol Succinate (ER) [Toprol XL] 25 mg PO DAILY tab Cholecalciferol [Vitamin D3 (10 Mcg = 400 Iu)] 10 mcg PO DAILY tab polyethylene glycoL 3350 [Miralax] 17 gm PO DAILY packet Ascorbic Acid [Vitamin C] 250 mg PO DAILY tab Continue Simvastatin [Zocor] 20 mg PO HS Lactulose 20 gm PO DAILY PRN 7 Days #210 ml PRN Reason: Constipation guaiFENesin SYRUP 100MG/5ML [Robitussin] 200 mg PO Q4H PRN PRN Reason: Cough Acetaminophen [Tylenol 8 Hour] 650 mg PO TID Acetaminophen [Tylenol 8 Hour] 650 mg PO Q8H PRN PRN Reason: GENERAL DISCOMFORT Omeprazole 20 mg PO BID Docusate [Colace] 100 mg PO BID 30 Days #60 cap Ondansetron [Zofran] 4 mg PO BID Mirtazapine 7.5 mg PO HS Ipratropium-Albuterol Nebulize [Duoneb 0.5 mg-3 mg/3 ml Soln] 3 ml INHALATION RT-TID Artificial Tears-Hypromellose [Artificial Tear Drops] 1 drops BOTH EYES BID traMADol HCl [Ultram] 50 mg PO Q6HR PRN #4 tab PRN Reason: Pain Discontinued amLODIPine [Norvasc] 5 mg PO DAILY Discharge Medication List Simvastatin [Zocor] 20 mg PO HS 11/03/20 [History] Omeprazole 20 mg PO BID 08/18/22 [History] Docusate [Colace] 100 mg PO BID 30 Days #60 cap 10/16/23 [Rx] Lactulose 20 gm PO DAILY PRN 7 Days #210 ml 10/16/23 [Rx] Acetaminophen [Tylenol 8 Hour] 650 mg PO Q8H PRN 11/16/23 [History] Acetaminophen [Tylenol 8 Hour] 650 mg PO TID 11/16/23 [History] Artificial Tears-Hypromellose [Artificial Tear Drops] 1 drops BOTH EYES BID 11/16/23 [History] Ipratropium-Albuterol Nebulize [Duoneb 0.5 mg-3 mg/3 ml Soln] 3 ml INHALATION RT-TID 11/16/23 [History] Mirtazapine 7.5 mg PO HS 11/16/23 [History] Ondansetron [Zofran] 4 mg PO BID 11/16/23 [History] guaiFENesin SYRUP 100MG/5ML [Robitussin] 200 mg PO Q4H PRN 11/16/23 [History] Apixaban [Eliquis] 2.5 mg PO BID tab 11/25/23 [Rx] Ascorbic Acid [Vitamin C] 250 mg PO DAILY tab 11/25/23 [Rx] Cholecalciferol [Vitamin D3 (10 Mcg = 400 Iu)] 10 mcg PO DAILY tab 11/25/23 [Rx] Furosemide [Lasix] 40 mg PO DAILY tab 11/25/23 [Rx] Megestrol [Megace] 800 mg PO DAILY ml 11/25/23 [Rx] Metoprolol Succinate (ER) [Toprol XL] 25 mg PO DAILY tab 11/25/23 [Rx] Zinc Sulfate [Orazinc] 220 mg PO DAILY cap 11/25/23 [Rx] polyethylene glycoL 3350 [Miralax] 17 gm PO DAILY packet 11/25/23 [Rx] traMADol HCl [Ultram] 50 mg PO Q6HR PRN #4 tab 11/25/23 [Rx] Follow up Appointment(s)/Referral(s): Yanet Fournier MD [Primary Care Provider] - 1-2 days
--- NOTE | 2023-11-25 15:56 | P.PN ---
Subjective Progress Note Date: 11/25/23 Principal diagnosis: Reason for follow-up is covid19 , leukocytosis Patient is a 87-year-old female with a past medical history significant hypertension hyperlipidemia reflux left lung cancer with history of radiation patient was brought into the hospital for evaluation of nausea and vomiting decreased appetite increasing weakness, patient tested positive for COVID chest x-ray with moderate effusion and pulmonary edema white count mildly elevated. On today's evaluation that is 11/25/2023, the patient continues to be afebrile the patient is breathing comfortably on room air denies any chest pain shortness of breath or cough no nausea vomiting no abdominal pain no diarrhea. No new labs were obtained today Objective - Vital Signs Vital signs: Vital Signs Temp 97.9 F 11/25/23 08:00 Pulse 76 11/25/23 08:55 Resp 16 11/25/23 08:00 BP 102/54 11/25/23 08:00 Pulse Ox 94 L 11/25/23 08:00 FiO2 Intake & Output 11/24/23 11/25/23 11/25/23 18:59 06:59 18:59 Intake Total 300 Balance 300 Weight 43 kg 43 kg Intake: Oral 300 Other: Voiding Method External Catheter Diaper Diaper - Exam GENERAL DESCRIPTION: An elderly female lying in bed in no distress RESPIRATORY SYSTEM: Unlabored breathing , decreased breath sound at the base HEART: S1 S2 regular rate and rhythm , ABDOMEN: Soft , no tenderness EXTREMITIES: No edema feet - Labs CBC & Chem 7: 11/22/23 07:07 11/22/23 07:07 Assessment and Plan (1) Leukocytosis Status: Acute Code(s): D72.829 - ELEVATED WHITE BLOOD CELL COUNT, UNSPECIFIED SNOMED Code(s): 992714413 (2) COVID-19 Status: Acute Code(s): U07.1 - COVID-19 SNOMED Code(s): 415843301 (3) Pleural effusion Status: Acute Code(s): J90 - PLEURAL EFFUSION, NOT ELSEWHERE CLASSIFIED SNOMED Code(s): 40171913 Plan: 1patient presented to hospital with weakness nausea vomiting not feeling well symptoms are more likely multifactorial in this patient who did tested positive for COVID however no significant hypoxemia and treatment be mostly supportive, Patient to continue with the Zinc ascorbic acid Eliquis and continue with supportive care 2patient was also noticed to have elevated white count chest x-ray with m oderate right effusion concerning for underlying pneumonia, patient had mild elevated procalcitonin 3patient has shown clinical improvement and the patient has completed a course of Rocephin patient is currently doing well off antibiotic therapy and no need for antibiotic on discharge Dictation was produced using [employer] dictation software. please excuse any grammatical, word or spelling errors. Time with Patient: Less than 30
--- NOTE | 2023-11-25 17:03 | P.PN ---
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 She was brought here to the emergency room last evening for a 3-4 day history of poor appetite, nausea vomiting and weakness. She is residing in [place]. Chest x-ray revealed moderate right pleural effusion. Cardiomegaly. Moderate pulmonary edema. No pneumothorax. White count 12.7. Hemoglobin 12.4. Platelets 572. Sodium 137. Potassium 4.8. Bicarb 18. BUN 44. Creatinine 1.0. AST 23. ALT 15. ProBNP 4360. Urinalysis clear. She did test positive for COVID-19 infection. He is seen today in consultation in the emergency department. She is sitting up in bed. She is a poor historian. Maintaining O2 saturations in the 90s on 2 L/m per nasal cannula. She's afebrile. Hemodynamically stable. Ultrasound of the chest was ordered and there is a small right pleural effusion of 3.8 cm. No significant fluid on the left. No plans for thoracentesis. His been initiated on bronchodilators. Antibiotics in the form of ceftriaxone. Vitamin supplements. She is on Lasix 40 mg IV daily. No urine output recorded thus f ar. The patient is seen today 11/17/2023 in follow-up on the regular medical floor. She is resting comfortably in bed. Maintaining O2 saturations in the 90s on 3 L/m per nasal cannula. Staff did find her without her oxygen and on room air her saturations were in the 70s. She recovered quickly. She is continued on ceftriaxone. Pro-calcitonin 0.18. White count 10.0. Hemoglobin 10.9. Platel ets 498. Sodium 140 per potassium 4.8. Bicarb 20. BUN 38. Creatinine 0.9. Glucose 67. She did have issues with atrial fibrillation and she is now anticoagulated with Eliquis. She remains on IV diuretics. Diuresing well. Echocardiogram revealed preserved left ventricular systolic function. Mild pulmonary hypertension. The patient is seen today 11/18/2023 in follow-up on the regular medical floor. She is awake and alert in no acute distress. She remains quite weak. She is maintaining O2 saturations in the 90s on 3 L/m per nasal cannula. She's been afebrile. Hemodynamically stable. Follow-up chest x-ray reveals evidence of COPD with decreasing right pleural effusion. Extensive opacity in the right mid and lower lung persist. Patchy left suprahilar airspace slightly improved. Blood culture reveals no growth. No new labs today. She remains on antibiotics and warm ceftriaxone. Anticoagulated with Eliquis. Remains on oral diuretics. Diuresing well. The patient is seen today 11/19/2023 in follow-up on the regular medical floor. She is currently resting comfortably in bed. Currently maintaining good O2 saturations in the high 90s on 2 L/m per nasal cannula. She's afebrile. Hemodynamically stable. White count 10.1. Hemoglobin 12.9. Platelets 445. She is continued on ceftriaxone. Remains on bronchodilators. Remains on oral diuretics. Eliquis for anticoagulation. Continued on vitamin supplements. He has normal saline at 10 MLS per hour. The patient is seen today 11/20/2023 in follow-up on the regular medical floor. She is awake and alert in no acute distress. Resting comfortably in bed. No worsening shortness of breath, cough or congestion. She is maintaining O2 saturations in the 90s on 1 L/m per nasal cannula. No IV fluids. Blood cult ures revealed no growth. No new labs today. She remains on bronchodilators, vitamin supplements, diuretics. Antibiotic in the form of ceftriaxone. Anticoagulated with Eliquis. The patient is seen today 11/21/2023 in follow-up on the regular medical floor. She is currently resting comfortably in bed. Awake and alert in no acute distress. She is maintaining O2 saturations in the 90s on 1 L/m per nasal cannula. No IV fluids. Cultures revealed no growth. No new labs today. She remains on bronchodilators, vitamin supplements, diuretics. Antibiotic in the form of ceftriaxone. Anticoagulated with Eliquis. On today's evaluation of 11/21/2023, the patient remains on room air oxygen. jazmine is doing well. No specific complaints. Note that during this current admission, the patient tested positive for Covid 19 and this is her second infection. Her chest x-ray shows a right-sided pleural effusion which is small based on the ultrasound and no attempts to undergo a thoracentesis. The patient also has E. coli in her sputum. Note that the patient has previous history of lung cancer, treated, history of childhood tuberculosis. The patient also has CHF and chronic into fibrillation and she has limited on anticoagulation with Eliquis. In regards to E. coli in his sputum, the patient is on IV Rocephin. The patient has ability to come of 10.7 with a hemoglobin 11.3 and a platelet count of 410. Sodium is at 139, Giorgio is at 26 with a creatinine of 0.9. No other specific issues otherwise for now. She is looking for placement or ECF placement for rehabilitation On today's evaluation of 11/22/2023, the patient is being seen for a follow-up. The patient is on room air oxygen. She was found to have E. coli in her sputum and she completed a course of Rocephin. She was also infected with Covid 19 without clear indication for an underlying pneumonia. The patient is otherwise doing well. No specific complaints. No nausea or vomiting. No emesis. Overall, feeling generalized weak although this is improved during the current hospitalization. No new labs are available from today. On today's evaluation of 11/23/2023, the patient is being seen for a follow-up. Overall condition is stable and unchanged. The patient is awaiting transfer to intermediate. The patient completed her course of Rocephin and was given for an E. coli in his sputum. She is also infected with Covid 19. She is clinically stable. No interval worsening in oxygenation. The patient remains on room air oxygen. No other significant events overnight. The patient has no new labs are available from today. The patient remains on anticoagulation with Eliquis 2.5 mg by mouth twice a day. Rest of the medications remain unchanged. She is also on Lasix 40 mg on a daily basis. On today's evaluation of 11/25/2023, no new complaints and the patient is being discharged today. Abdomen is soft and nontender. No nausea or emesis. Noticed distress pH remains on room air oxygen pH is cleared for discharge to go back to rehabilitation. She is post Covid 19 infection. She also has diastolic heart failure with preserved LV function. She has a chronic right-sided pleural effusion. No significant respiratory distress at this point Objective - Vital Signs Vital signs: Vital Signs Temp 97.9 F 11/25/23 08:00 Pulse 76 11/25/23 08:55 Resp 16 11/25/23 08:00 BP 102/54 11/25/23 08:00 Pulse Ox 94 L 11/25/23 08:00 FiO2 Intake & Output 11/24/23 11/25/23 11/25/23 18:59 06:59 18:59 Intake Total 300 Balance 300 Weight 43 kg 43 kg Intake: Oral 300 Other: Voiding Method External Catheter Diaper Diaper - Exam GENERAL EXAM: Alert, weak and frail 87-year-old female, on room air oxygen, in no apparent distress. HEAD: Normocephalic. EYES: Normal reaction of pupils, equal size. NOSE: Clear with pink turbinates. THROAT: No erythema or exudates. NECK: No masses, no JVD. CHEST: No chest wall deformity. LUNGS: Equal air entry with basilar crackles right greater than left. CVS: S1 and S2 normal with no audible murmur, regular rhythm. ABDOMEN: No hepatosplenomegaly, normal bowel sounds, no guarding or rigidity. SPINE: No scoliosis or deformity SKIN: No rashes CENTRAL NERVOUS SYSTEM: No focal deficits, tone is normal in all 4 extremities. EXTREMITIES: There is no peripheral edema. No clubbing, no cyanosis. Peripheral pulses are intact. - Labs CBC & Chem 7: 11/22/23 07:07 11/22/23 07:07 Assessment and Plan Plan: Generalized weakness with nausea and vomiting secondary to acute COVID-19 infection without evidence of CoVID pneumonia, and this is the patient's second infection with Covid 19. Acute on chronic diastolic congestive heart failure, echocardiogram revealed preserved left ventricular systolic function, currently inactive and stable Small right-sided pleural effusion, ultrasound of the chest was done and the fluid pocket was small and no attempts for thoracentesis was done Atrial fibrillation, anticoagulated with Eliquis E. 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 coli in the sputum No need for steroids Continue Lasix Continue anticoagulation with Eliquis 2.5 mg by mouth twice a day Continue bronchodilators and the patient is on Ventolin HFA 4 times a day No need for immediate thoracentesis at this point in time Patient has a remote history of tuberculosis Patient has a remote history of lung cancer Patient has COPD and a component of lung fibrosis Condition is stable and she is having some residual generalized weakness and she would benefit from ECF. The plan is for [facility] versus inpatient rehab upon discharge
== END 2023-11-25 15:00 | DRG 177 ==
LOC: EC 21:09 → 4SSUR 11-16 01:01
PROVIDERS: ADMIT Internal Medicine; ATTEND Internal Medicine
PROC: 05HA33Z Insertion of Infusion Device into Left Brachial Vein, Percutaneous Approach (ICD-10-PCS; principal; 2023-11-17 15:15)
DX: U07.1 COVID-19 (principal); E43 Unspecified severe protein-calorie malnutrition; J96.01 Acute respiratory failure with hypoxia; I50.33 Acute on chronic diastolic (congestive) heart failure; Z68.1 Body mass index [BMI] 19.9 or less, adult; J70.1 Chronic and other pulmonary manifestations due to radiation; I27.20 Pulmonary hypertension, unspecified; E86.0 Dehydration; I11.0 Hypertensive heart disease with heart failure; J44.9 Chronic obstructive pulmonary disease, unspecified; I48.91 Unspecified atrial fibrillation; Z66 Do not resuscitate; Z28.310 Unvaccinated for COVID-19; I45.10 Unspecified right bundle-branch block; E78.5 Hyperlipidemia, unspecified; K21.9 Gastro-esophageal reflux disease without esophagitis; S32.599D Other specified fracture of unspecified pubis, subsequent encounter for fracture with routine healing; Z79.891 Long term (current) use of opiate analgesic; Z79.899 Other long term (current) drug therapy; Z87.01 Personal history of pneumonia (recurrent); Z85.118 Personal history of other malignant neoplasm of bronchus and lung; Z92.3 Personal history of irradiation; Z96.641 Presence of right artificial hip joint; Z86.11 Personal history of tuberculosis; Z87.891 Personal history of nicotine dependence; Z71.3 Dietary counseling and surveillance; W19.XXXD Unspecified fall, subsequent encounter; Z88.6 Allergy status to analgesic agent; Y84.2 Radiological procedure and radiotherapy as the cause of abnormal reaction of the patient, or of later complication, without mention of misadventure at the time of the procedure
CPT/HCPCS: 36410; 36415; 71045; 71046; 76604; 76937; 80048; 80053; 81003; 83605; 83735; 83880; 84145; 84443; 85025; 85610; 85730; 87040; 87636; 93005; 93308; 94640; 94760; 96361; 96365; 96366; 96367; 96372; 96375; 99285

== ENCOUNTER → 2025-05-27 | Outpatient (CLI) | payer MEDICARE ==
[2025-05-27 14:00] LABS: African American GFR (CKD) 59 (>60 ml/min/1.73 sqM); Blood Urea Nitrogen 40 mg/dL (7-17); Non-African American GFR(CKD) 51 (>60 ml/min/1.73 sqM)
--- NOTE | 2025-05-27 15:02 | CT ---
EXAMINATION TYPE: CT chest w con CT DLP: 866.40 mGycm, Automated exposure control for dose reduction was used. DATE OF EXAM: 05/27/2025 2:45 PM COMPARISON: Chest radiograph 04/25/2025, CT chest abdomen pelvis 03/10/2023 CLINICAL INDICATION:Female, 89 years old with history of Z86.008 Z85.11; PHH, Hx of left lung CA. TECHNIQUE: Multiple axial images were obtained through the chest following the administration of 100 cc of Isovue 300. . Coronal and sagittal reformats reviewed. FINDINGS: LUNGS/ PLEURA: No pneumothorax or pleural effusion. Mild centrilobular emphysematous changes. Scatter ed interstitial scarring. Right lower lobe dependent subsegmental atelectasis. Unchanged wedge-shaped consolidative opacity within the medial anterior aspect of the left upper lobe. There is associated bronchiectasis. No new or enlarging pulmonary nodules. AIRWAY: Patent and unremarkable.. HEART: Mildly enlarged. . No pericardial effusion. Moderate coronary artery calcifications present. MEDIASTINUM: No evidence of adenopathy. VASCULATURE: No aortic aneurysm. Mild atherosclerotic calcification of the aorta and its branches. N o evidence for central pulmonary embolism. MUSCULOSKELETAL: No acute osseous abnormalities. No aggressive osseous lesion. Diffuse bone demineral ization. Bilateral shoulder arthropathy. Multiple healing right anterior rib fractures involving the third and fourth ribs with some callus formation. No aggressive osseous lesions. [facility] of the same day for findings. SOFT TISSUES/LYMPH NODES: Unremarkable. LOWER NECK: Multinodular thyroid gland with largest hypodense nodule within the left thyroid lobe carrington suring up to 9 mm. UPPER ABDOMEN: Small hiatal hernia with postsurgical changes at the GE junction. Gallbladder is surgi abbey absent. Right renal simple 1.7 cm cyst. No focal parenchymal. Moderate amount of stool is prese nt within the visualized colon. IMPRESSION: 1. Unchanged medial left upper lobe consolidative opacity may represent posttreatment changes/scarrin g in the setting of previous lung cancer. No new or enlarging pulmonary nodules. Scattered pulmonary fibrotic changes and COPD. 2. No pathologic enlarged lymph nodes identified. 3. Healing right anterior third and fourth rib fractures with callus formation. [facility], , 05/27/2025 2:59 PM
--- NOTE | 2025-05-27 15:46 | CT ---
EXAMINATION TYPE: CT thor lumbar spine w con CT DLP: 866.40 mGycm, Automated exposure control for dose reduction was used. DATE OF EXAM: 05/27/2025 2:46 PM COMPARISON: CT chest 05/27/2025, CT of the pelvis 04/18/2025, CT pelvis 10/20/2023, lumbar spine radiog raph 10/20/2023. 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 Soft tissue and bone windows in coronal and sagittal saima ronna were obtained and reviewed. Contrast used:80 ml mL of Isovue 300 with IV Contrast, Oral contrast used: none. FINDINGS: Please refer to dedicated CT chest for findings related to the thorax. No acute fracture. 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 Nearly grade 2 anterolisthesis of L5 on S1 without evidence of pars defects. Grade 1 retrolisthesis of T12 on L1 and L1 on L2. Diffuse bone demineralization. No aggressive osseous lesion. Multilevel degenerat keerthi disc disease identified. Prominent endplate sclerosis involving T12-L1. Multilevel disc space kristen rowing with endplate sclerosis and vacuum disc disease. No evidence for disc herniation involving the thoracic spine. No evidence for significant spinal jayshree l or neuroforamina stenosis of the thoracic spine. Posterior disc osteophyte complex at T12-L1. No significant spinal canal stenosis. No significant farhan ral foraminal stenosis. No significant spinal canal stenosis at L1-L2. Mild bilateral neural foraminal stenosis. No significant spinal canal or neural foraminal stenosis at L2-L3. No significant spinal canal or neural foraminal stenosis at L3-L4. Mild broad-based disc bulge at L4-L5 with ligamentum flavum buckling. No significant spinal canal elvin nosis. No significant neural foraminal stenosis. No significant spinal canal stenosis at L5-S1. Bilateral facet arthropathy with moderate bilateral ne uroforaminal stenosis at L5-S1. Stable simple right renal cyst measuring 1.6 cm. No follow-up recommended. Contrast is demonstrated w ithin both collecting systems. Postsurgical change at the GE junction. Atherosclerotic calcification of the aorta and its branches. Postsurgical changes with anterior abdominal wall mesh. Moderate colon ic stool burden. Gallbladder is surgically absent. Sigmoid diverticulosis without visualized acute di verticulitis. Partial visualization of right hip arthroplasty. IMPRESSION: 1. No evidence for acute spinal fracture. 2. 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 3. Nearly grade 2 anterolisthesis of L5 on S1. Grade 1 retrolisthesis of T12 on L1 and L1 on L2. 4. 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 No significant neural foraminal stenosis. [facility], , 05/27/2025 3:43 PM
== END | disposition home or self-care (01) ==
LOC: RADCTMAIN 13:14
PROVIDERS: ATTEND Internal Medicine
DX: M47.894 Other spondylosis, thoracic region (principal); M47.816 Spondylosis without myelopathy or radiculopathy, lumbar region; J44.9 Chronic obstructive pulmonary disease, unspecified; J84.10 Pulmonary fibrosis, unspecified; M51.360 Other intervertebral disc degeneration, lumbar region with discogenic back pain only; M43.16 Spondylolisthesis, lumbar region; M43.17 Spondylolisthesis, lumbosacral region; Z85.110 Personal history of malignant carcinoid tumor of bronchus and lung; Z87.59 Personal history of other complications of pregnancy, childbirth and the puerperium
CPT/HCPCS: 82565; 84520; 72129; 72132; 71260; 36415; Q9967